=== PATIENT | female | born 1990 | race Caucasian/White ===

== ENCOUNTER 2022-12-19 11:48 | Outpatient (OUT) | payer OTHER, MEDICAID, SELFPAY ==
--- NOTE | 2022-12-19 12:10 | US_ITS ---
[place] [id number] Patient Name: DILMA KAUR MRN: [id number] date: 1990 Sex: F Assigned Patient Location: [facility] Current Patient Location: Accession/Order Number: [id number] Exam Date: 12/19/2022 13:00 Report Date: 12/19/2022 13:34 At the request of: CHEMA HOU Procedure: US OB BPP w non-stress EXAMINATION: US OB BPP w non-stress HISTORY: decreased movement umbilical abnormality COMPARISON: No relevant comparison available. TECHNIQUE: Ultrasound biophysical profile was performed in the radiology department. BREATHING MOVEMENTS: 2.0 GROSS BODY MOVEMENTS: 2.0 TONE: 2.0 QUALITATIVE AMNIOTIC FLUID VOLUME: 2.0 PRESENTATION: CEPHALIC HEART RATE: 145.9 bpm bpm. AMNIOTIC FLUID VOLUME: 23.9 cm (normal range 7.7-26.8 cm) GESTATIONAL AGE: 31 weeks 6 days CONCLUSION: Total biophysical profile score 8.0. Electronically authenticated by: EDDI SEALS Date: 12/19/2022 13:34
[2022-12-19 12:17] VITALS: TEMP 35.7
[2022-12-19 12:18] VITALS: BP 119/57; PULSE 79
== END 2022-12-19 13:25 | disposition home or self-care (01) ==
LOC: FBCO 11:59 → FBC 12:01
PROVIDERS: PCP Obstetrics & Gynecology; Visit Provider Obstetrics & Gynecology
DX: O26.893 Other specified pregnancy related conditions, third trimester (principal); Q89.9 Congenital malformation, unspecified; Z3A.31 31 weeks gestation of pregnancy
CPT/HCPCS: 59412; 76818

== ENCOUNTER 2022-12-22 09:21 | Outpatient (OUT) | payer OTHER, MEDICAID, SELFPAY ==
[2022-12-22 09:23] VITALS: BP 117/57; PULSE 74
== END 2022-12-22 10:10 | disposition home or self-care (01) ==
LOC: FBCO 09:21 → FBC 09:22
PROVIDERS: PCP Obstetrics & Gynecology; Visit Provider Obstetrics & Gynecology
DX: O26.899 Other specified pregnancy related conditions, unspecified trimester (principal)
CPT/HCPCS: 59025

== ENCOUNTER 2022-12-26 13:10 | Outpatient (OUT) | payer OTHER, MEDICAID, SELFPAY ==
[2022-12-26 13:18] VITALS: BP 106/64; PULSE 72
--- NOTE | 2022-12-26 13:29 | US_ITS ---
[address] [address] Patient Name: DILMA KAUR MRN: [id number] date: 1990 Sex: F Assigned Patient Location: [facility] Current Patient Location: Accession/Order Number: [id number] Exam Date: 12/26/2022 13:30 Report Date: 12/26/2022 15:24 At the request of: CHEMA HOU Procedure: US OB BPP w non-stress EXAMINATION: US OB BPP w non-stress HISTORY: Q89.9 Umbilical abnormality COMPARISON: Ultrasound biophysical profile 12/19/2022 TECHNIQUE: Ultrasound biophysical profile was performed in the radiology department. BREATHING MOVEMENTS: 2.0 GROSS BODY MOVEMENTS: 2.0 TONE: 2.0 QUALITATIVE AMNIOTIC FLUID VOLUME: 2.0 PRESENTATION: Cephalic HEART RATE: 135.0 bpm bpm. AMNIOTIC FLUID VOLUME: 16.6 cm GESTATIONAL AGE: 32 weeks 6 days CONCLUSION: Total biophysical profile score 8.0. Electronically authenticated by: EDDI SEALS Date: 12/26/2022 15:24
== END 2022-12-26 14:20 | disposition home or self-care (01) ==
LOC: FBCO 13:11 → FBC 13:11
PROVIDERS: PCP Obstetrics & Gynecology; Visit Provider Obstetrics & Gynecology
DX: O26.893 Other specified pregnancy related conditions, third trimester (principal); Q89.9 Congenital malformation, unspecified; Z3A.32 32 weeks gestation of pregnancy
CPT/HCPCS: 59025; 76818; 96372; J0702

== ENCOUNTER 2022-12-27 07:35 | Outpatient (OUT) | payer OTHER, MEDICAID, SELFPAY ==
[2022-12-27 13:55] VITALS: BP 121/76; PULSE 92; RESP 18; TEMP 36.2; O2SAT 98
--- NOTE | 2022-12-27 14:43 | PC.NURSE ---
1355: Pt. to [facility] amb. for second Celestone injection. Seated in recliner. VSS. Denies any adverse reaction from yesterdays injection. Pt. medicated with Celestone, 12mg im to left dorsal gluteal area. No bleeding to site. Pt. tolerated with minimal c/o pain. 1415: Pt. without s&s of adverse reaction. D/c'd amb. to home.
== END 2022-12-27 07:36 ==
LOC: INF 07:35
PROVIDERS: PCP Obstetrics & Gynecology; Visit Provider Obstetrics & Gynecology
DX: O26.879 Cervical shortening, unspecified trimester (principal)
CPT/HCPCS: 96372; J0702

== ENCOUNTER 2022-12-29 09:05 | Outpatient (OUT) | payer OTHER, MEDICAID, SELFPAY ==
[2022-12-29 09:13] VITALS: BP 116/70; PULSE 86
== END 2022-12-29 10:00 | disposition home or self-care (01) ==
LOC: FBCO 09:06 → FBC 09:06
PROVIDERS: PCP Obstetrics & Gynecology; Visit Provider Obstetrics & Gynecology
DX: O26.899 Other specified pregnancy related conditions, unspecified trimester (principal)
CPT/HCPCS: 59025

== ENCOUNTER 2023-01-02 14:54 | Outpatient (OUT) | payer OTHER, MEDICAID, SELFPAY ==
[2023-01-02 15:05] VITALS: BP 111/67; PULSE 96
--- NOTE | 2023-01-02 15:09 | US_ITS ---
[address] [address] Patient Name: DILMA KAUR MRN: [id number] date: 1990 Sex: F Assigned Patient Location: US Current Patient Location: US Accession/Order Number: [id number] Exam Date: 01/02/2023 15:45 Report Date: 01/02/2023 20:35 At the request of: CHEMA HOU Procedure: US OB BPP w non-stress EXAMINATION: US OB BPP w non-stress HISTORY: Umbilical abnormality Q89.9 COMPARISON: No relevant comparison available. TECHNIQUE: Ultrasound biophysical profile was performed in the radiology department. FINDINGS: BREATHING MOVEMENTS: 2.0 GROSS BODY MOVEMENTS: 2.0 TONE: 2.0 QUALITATIVE AMNIOTIC FLUID VOLUME: 2.0 PRESENTATION: Cephalic HEART RATE: 137.1 bpm H.B./min AMNIOTIC FLUID VOLUME: 18.8 cm cm GESTATIONAL AGE: 33 weeks 6 days CONCLUSION: Total biophysical profile score: 8.0 Electronically authenticated by: JORDAN KAUFFMAN Date: 01/02/2023 20:35
== END 2023-01-02 16:05 | disposition home or self-care (01) ==
LOC: US 14:54 → FBC 14:55
PROVIDERS: PCP Obstetrics & Gynecology; Visit Provider Obstetrics & Gynecology
DX: Q89.9 Congenital malformation, unspecified (principal)
CPT/HCPCS: 59025; 76818

== ENCOUNTER 2023-01-05 07:18 | Outpatient (OUT) | payer OTHER, MEDICAID, SELFPAY | END 2023-01-05 09:40 | disposition home or self-care (01) | LOC: FBCO 07:18 → FBC 09:13 | PROVIDERS: PCP Obstetrics & Gynecology; Visit Provider Obstetrics & Gynecology | DX: O26.899 Other specified pregnancy related conditions, unspecified trimester (principal) | CPT/HCPCS: 59025 ==

== ENCOUNTER 2023-01-08 15:29 | Outpatient (OUT) | payer OTHER, MEDICAID, SELFPAY ==
--- NOTE | 2023-01-08 15:30 | US_ITS ---
[address] [address] Patient Name: DILMA KAUR MRN: [id number] date: 1990 Sex: F Assigned Patient Location: [facility] Current Patient Location: Accession/Order Number: [id number] Exam Date: 01/08/2023 15:30 Report Date: 01/09/2023 04:18 At the request of: CHEMA HOU Procedure: US OB BPP w non-stress EXAMINATION: US OB BPP w non-stress HISTORY: Q89.9 UMBILICAL ABNORMALITY COMPARISON: Ultrasound biophysical profile 01/02/2023 TECHNIQUE: Ultrasound biophysical profile was performed in the radiology department. BREATHING MOVEMENTS: 2.0 GROSS BODY MOVEMENTS: 2.0 TONE: 2.0 QUALITATIVE AMNIOTIC FLUID VOLUME: 2.0 PRESENTATION: CEPHALIC HEART RATE: 149.2 bpm bpm. AMNIOTIC FLUID VOLUME: 12.2 cm GESTATIONAL AGE: 34 weeks 5 days CONCLUSION: Total biophysical profile score 8.0. Electronically authenticated by: EDDI SEALS Date: 01/09/2023 04:18
[2023-01-08 15:58] VITALS: BP 111/67; PULSE 74
== END 2023-01-08 17:15 | disposition home or self-care (01) ==
LOC: US 15:34 → FBC 15:35
PROVIDERS: PCP Obstetrics & Gynecology; Visit Provider Obstetrics & Gynecology
DX: O35.8XX0 Maternal care for other (suspected) fetal abnormality and damage, not applicable or unspecified (principal); Z3A.00 Weeks of gestation of pregnancy not specified
CPT/HCPCS: 59025; 76818

== ENCOUNTER 2023-01-12 09:06 | Outpatient (OUT) | payer OTHER, MEDICAID, SELFPAY | END 2023-01-12 10:00 | disposition home or self-care (01) | LOC: FBCO 09:07 → FBC 09:09 | PROVIDERS: Visit Provider Obstetrics & Gynecology | DX: O26.899 Other specified pregnancy related conditions, unspecified trimester (principal) | CPT/HCPCS: 59025 ==

== ENCOUNTER 2023-01-16 15:12 | Outpatient (OUT) | payer OTHER, MEDICAID, SELFPAY ==
--- NOTE | 2023-01-16 15:14 | US_ITS ---
[address] [address] Patient Name: DILMA KAUR MRN: [id number] date: 1990 Sex: F Assigned Patient Location: [facility] Current Patient Location: [facility] Accession/Order Number: [id number] Exam Date: 01/16/2023 15:15 Report Date: 01/16/2023 15:59 At the request of: ANTHONY THOMSON Procedure: US OB BPP w non-stress EXAMINATION: US OB BPP w non-stress HISTORY: Umbilical abnormality Q89.9 COMPARISON: No relevant comparison available. TECHNIQUE: Ultrasound biophysical profile was performed in the radiology department. BREATHING MOVEMENTS: 2.0 GROSS BODY MOVEMENTS: 2.0 TONE: 2.0 QUALITATIVE AMNIOTIC FLUID VOLUME: 2.0 PRESENTATION: Cephalic HEART RATE: 145.9 bpm bpm. AMNIOTIC FLUID VOLUME: 19.1 cm GESTATIONAL AGE: 35 weeks 6 days CONCLUSION: Total biophysical profile score 8.0. Electronically authenticated by: EDDI SEALS Date: 01/16/2023 15:59
[2023-01-16 15:35] VITALS: BP 120/69; PULSE 86
== END 2023-01-16 16:40 | disposition home or self-care (01) ==
LOC: US 15:14 → FBC 15:15
PROVIDERS: Visit Provider Midwife
DX: O26.893 Other specified pregnancy related conditions, third trimester (principal); Z3A.35 35 weeks gestation of pregnancy; Q89.9 Congenital malformation, unspecified
CPT/HCPCS: 76818

== ENCOUNTER 2023-01-17 20:14 | Outpatient (REF) | payer OTHER, MEDICAID, SELFPAY | END 2023-01-17 20:15 | disposition home or self-care (01) | LOC: LAB 20:14 | PROVIDERS: Visit Provider Obstetrics & Gynecology | DX: Z34.93 Encounter for supervision of normal pregnancy, unspecified, third trimester (principal) | CPT/HCPCS: 87081 ==

== ENCOUNTER 2023-01-19 09:00 | Outpatient (OUT) | payer OTHER, MEDICAID, SELFPAY ==
[2023-01-19 09:09] VITALS: BP 131/72; PULSE 70
== END 2023-01-19 09:42 | disposition home or self-care (01) ==
LOC: FBCO 09:02 → FBC 09:04
PROVIDERS: Visit Provider Obstetrics & Gynecology
DX: O36.8930 Maternal care for other specified fetal problems, third trimester, not applicable or unspecified (principal); Q89.9 Congenital malformation, unspecified; Z3A.00 Weeks of gestation of pregnancy not specified
CPT/HCPCS: 59025

== ENCOUNTER 2023-01-23 15:06 | Outpatient (OUT) | payer OTHER, MEDICAID, SELFPAY ==
--- NOTE | 2023-01-23 14:21 | US_ITS ---
[address] [address] Patient Name: DILMA DONAHUE MRN: [id number] date: 1990 Sex: F Assigned Patient Location: US Current Patient Location: US Accession/Order Number: [id number] Exam Date: 01/23/2023 14:55 Report Date: 01/23/2023 18:25 At the request of: CHEMA HOU Procedure: US OB BPP w non-stress EXAMINATION: US OB BPP w non-stress HISTORY: Umbilical abnormality Q89.9 COMPARISON: No relevant comparison available. TECHNIQUE: Ultrasound biophysical profile was performed in the radiology department. FINDINGS: BREATHING MOVEMENTS: 2 GROSS BODY MOVEMENTS: 2 TONE: 2 QUALITATIVE AMNIOTIC FLUID VOLUME: 2 PRESENTATION: CEPHALIC HEART RATE: 157.9 bpm H.B./min AMNIOTIC FLUID VOLUME: 17.1 cm cm GESTATIONAL AGE: 36 weeks 6 days CONCLUSION: Total biophysical profile score: 8 Electronically authenticated by: JORDAN KAUFFMAN Date: 01/23/2023 18:25
[2023-01-23 15:20] VITALS: BP 139/88; PULSE 68
== END 2023-01-23 16:06 | disposition home or self-care (01) ==
LOC: US 15:07 → FBC 15:09
PROVIDERS: Visit Provider Obstetrics & Gynecology
DX: O26.893 Other specified pregnancy related conditions, third trimester (principal); Z3A.36 36 weeks gestation of pregnancy; Q89.9 Congenital malformation, unspecified
CPT/HCPCS: 76818

== ENCOUNTER 2023-01-23 23:16 | Inpatient (IN) | payer OTHER, MEDICAID, SELFPAY ==
[2023-01-23 22:32] VITALS: BP 141/92; PULSE 79
--- NOTE | 2023-01-23 22:46 | PC.NURSE ---
2225-No fluid noted during cervical exam. Amnisure obtained and sent to lab.
[2023-01-23 22:59] LABS: Amnisure POSITIVE (NEGATIVE)
[2023-01-23 23:48] LABS: Hematocrit 33.9 % (36.0-48.0); Hemoglobin 11.2 g/dL (12.0-16.0); Mean Corpuscular Volume 81.7 fL (81.0-99.0); Platelet Count 323 10^3/uL (150-450); Red Blood Count 4.15 10^6/uL (4.20-5.40); Red Cell Distribution Width 14.8 % (11.0-15.0)
[2023-01-23 23:49] VITALS: BP 129/82; PULSE 76; RESP 18
[2023-01-23 23:49] LABS: Bilirubin Urine NEGATIVE (NEGATIVE); Blood Urine TRACE-I (NEGATIVE); Clarity Urine CLEAR (CLEAR); Color Urine YELLOW (YELLOW); Glucose Urine UA NEGATIVE (NEGATIVE); Ketones Urine NEGATIVE (NEGATIVE); Leukocyte Esterase Urine NEGATIVE (NEGATIVE); Nitrite Urine NEGATIVE (NEGATIVE); Protein Urine 30 mg/dL (NEG/TRACE); Specific Gravity Urine 1.025 (1.005-1.025); Urobilinogen Urine 0.2 EU/dL (0.2-1.0)
[2023-01-23 23:52] VITALS: TEMP 36.6
[2023-01-23 23:53] LABS: Urine Microscopic Indicated YES
--- NOTE | 2023-01-23 23:57 | PC.NURSE ---
2214- Report given to Dr. [place]. Orders received if patient ruptured admit patient with normal admission orders. Start PIT at 0600.
[2023-01-23 23:58] LABS: RBC Urine 0-2 #/HPF (0-2); WBC Urine 0-2 #/HPF (NONE SEEN)
[2023-01-23 23:59] LABS: Bacteria Urine TRACE #/HPF (NONE SEEN); Calcium Oxalate Crystals Urine MANY; Cast Seen? NONE SEEN #/LPF (NONE SEEN); Crystals Seen? Seen #/HPF (None Seen); Mucus Urine TRACE (NONE SEEN); Squamous Epithelial Cell Urine RARE #/LPF (NONE/RARE); Urine Culture Indicated NO
[2023-01-24] VITALS (71 sets, daily range): BP systolic 103–154; BP diastolic 55–84; PULSE 62–121; RESP 16–44; TEMP 36.2–36.7
[2023-01-24] MEDS: 0.9 % SODIUM CHLORIDE 1,000 ML 1000 ML IV ×2 (02:11→09:23)
[2023-01-24] MEDS: 0.9 % SODIUM CHLORIDE 1,000 ML 125 ML IV (02:27)
[2023-01-24] MEDS: ROPIVACAINE HCL/PF 400 MG/200 ML PREMIX EPIDURAL (05:26)
[2023-01-24 07:06] LABS: Amphetamine Screen Urine NEGATIVE (NEGATIVE); Barbiturates Screen Urine NEGATIVE (NEGATIVE); Benzodiazepines Screen Urine NEGATIVE (NEGATIVE); Buprenorphine Screen Urine NEGATIVE (NEGATIVE); Cannabinoid Screen Urine NEGATIVE (NEGATIVE); Cocaine Screen Urine NEGATIVE (NEGATIVE); Methadone Screen Urine NEGATIVE (NEGATIVE); Methamphetamines Screen Urine NEGATIVE (NEGATIVE); Opiate Screen Urine NEGATIVE (NEGATIVE); Oxycodone Screen Urine NEGATIVE (NEGATIVE); Phencyclidine Screen Urine NEGATIVE (NEGATIVE); Tricyclic Antidepressant Urine NEGATIVE (NEGATIVE)
[2023-01-24] MEDS: OXYTOCIN 10 UNIT in 0.9 % SODIUM CHLORIDE 500 ML 6.012 UNIT IV (10:29)
--- NOTE | 2023-01-24 16:07 | PM.OBPRCVD ---
Procedure Intrapartal events: None Delivery augmentation: pitocin Delivery monitor: external FHT and external uterine Route of delivery: Laceration description: periurethral - 1st degree Delivery repair: Vicryl Estimated blood loss (mL): 300 Anesthesia type: Epidural Disposition: floor Infant Delivery date: 01/24/23 Gender: female presentation: vertex Placental delivery description: Spontaneous cord description: 3 Vessels
--- NOTE | 2023-01-24 16:15 | PC.NURSE ---
1615 epidural catheter removed with tip intact.
[2023-01-24] MEDS: IBUPROFEN 600 MG TABLET PO (16:54)
--- NOTE | 2023-01-24 17:49 | PC.NURSE ---
eating meal. denies needs.
--- NOTE | 2023-01-24 19:19 | W.PC.ACHO ---
Registration Status: ADM IN Primary Language: Gibraltarian Preferred Language: Gibraltarian 1909 care relinquished to annette lou Active Medications Generic Name Dose Route Start Last Admin Trade Name Freq PRN Reason Stop Dose Admin Acetaminophen 650 mg 01/24/23 16:06 Acetaminophen 325 Mg Tablet PO Q6H PRN Mild Pain Al Hydroxide/Mg Hydroxide 2,400 mg 01/24/23 16:06 Magnesium Hydroxide 2,400 Mg/10 Ml Oral.Susp PO Q6H PRN Dyspepsia Benzocaine/Menthol 1 applic 01/24/23 16:06 01/24/23 16:57 Benzocaine/Menthol 85 Gram Bottle TOPICAL 1 applic ONCE PRN Administration Pain Carboprost Tromethamine 250 mcg 01/23/23 23:16 Carboprost Tromethamine 250 Mcg/Ml 1 Ml Vial IM Q15M PRN Bleeding Docusate Sodium 100 mg 01/25/23 09:00 Docusate Sodium 100 Mg Capsule PO BID JERRELL Sodium Chloride 1,000 mls @ 125 mls/hr 01/23/23 23:30 01/24/23 02:27 Sodium Chloride 0.9% 1,000 Ml IV 125 mls/hr .Q8H JERRELL Administration Ropivacaine/Sodium Chloride 400 mg in 200 mls @ 6 mls/hr 01/24/23 04:30 Naropin 0.2% 400 Mg/200 Ml Bag EPIDURAL Q24H [facility] Oxytocin 10 unit/ Sodium 501 mls @ 6.012 mls/hr 01/24/23 04:45 01/24/23 12:45 Chloride IV 8 milliunit/min Q24H JERRELL 24.048 mls/hr Infusion Protocol 2 MILLIUNIT/MIN Oxytocin 10 unit/ Sodium 501 mls @ 6.012 mls/hr 01/24/23 10:30 Chloride IV Q24H [facility] Protocol 2 MILLIUNIT/MIN Ibuprofen 600 mg 01/24/23 16:06 01/24/23 16:54 Ibuprofen 600 Mg Tablet PO 600 mg Q6H PRN Administration Moderate Pain Lidocaine 5 ml 01/23/23 23:16 Lidocaine Viscous 2% 15 Ml Topical Solution TOPICAL DIRECTED PRN Pain Lidocaine 1 ml 01/23/23 23:16 Lidocaine Hcl 1% 200 Mg/20 Ml Mdv INJ DIRECTED PRN Pain Methylergonovine Maleate 0.2 mg 01/23/23 23:16 Methylergonovine Maleate 0.2 Mg/Ml Ampule IM ONCE PRN Uterine Contractility/Contract Methylergonovine Maleate 0.2 mg 01/23/23 23:16 Methylergonovine Maleate 0.2 Mg Tablet PO Q4H PRN Uterine Contractility/Contract Misoprostol 600 mcg 01/23/23 23:16 Misoprostol 100 Mcg Tablet PO ONCE PRN Uterine Bleeding Misoprostol 800 mcg 01/23/23 23:16 Misoprostol 100 Mcg Tablet SL ONCE PRN Uterine Bleeding Misoprostol 1,000 mcg 01/23/23 23:16 Misoprostol 100 Mcg Tablet WI ONCE PRN Uterine Bleeding Nalbuphine HCl 10 mg 01/23/23 23:16 Nalbuphine Hcl 10 Mg/Ml Ampule IV Q3H PRN Pain Ondansetron HCl 4 mg 01/23/23 23:16 Ondansetron Pf 4 Mg/2 Ml Vial IV Q6H PRN Nausea And Vomiting Ondansetron HCl 4 mg 01/23/23 23:16 Ondansetron 4 Mg Rapdis Tablet SL Q6H PRN Nausea And Vomiting Oxytocin 10 unit 01/23/23 23:16 Oxytocin 100 Unit/10 Ml Vial IM ONCE PRN Uterine Bleeding Senna 17.2 mg 01/24/23 20:00 Sennosides 8.6 Mg Tablet PO QHS PRN Constipation Simethicone 80 mg 01/24/23 16:06 Simethicone 80 Mg Tab.Chew PO QID PRN Abdominal Distention Temazepam 15 mg 01/24/23 20:00 Temazepam 15 Mg Capsule PO BEDTIME PRN Sleep Witch Sophie/Glycerin 1 each 01/24/23 16:06 Glycerin/Witch Sophie 1 Each Jar TOPICAL ONCE PRN Pain Diet Category Date Time Status Regular Consistency Diet Diet 01/24/23 Dinner Active Neurology Patient orientation (short person,place,time,situation list) Leila coma scale total score 15 Respiratory Oxygen Delivery Method Room Air Bowels Bowel Pattern No Bowel Movement Renal Bladder Pattern Continent
--- NOTE | 2023-01-24 21:28 | PC.NURSE ---
2044-Patient up to bathroom and linens changed. Sarah care performed and dermaplast applied. Patient denies any further needs at this time.
[2023-01-25 05:51] LABS: Basophils Absolute Auto 0.1 10^3/uL (0.0-0.1); Basophils Percent Auto 0.3 % (0.2-2.0); Eosinophils Absolute Auto 0.1 10^3/uL (0.0-0.7); Eosinophils Percent Auto 0.8 % (0.9-7.0); Hematocrit 25.9 % (36.0-48.0); Hemoglobin 8.1 g/dL (12.0-16.0); Immature Granulocytes Abs Auto 0.15 10^3/uL (0.00-0.03); Immature Granulocytes Pct Auto 0.8 % (0.0-0.5); Lymphocytes Absolute Auto 2.7 10^3/uL (1.2-3.8); Lymphocytes Percent Auto 14.4 % (20.5-60.0); Mean Corpuscular HGB Conc 31.3 g/dL (29.9-35.2); Mean Corpuscular Volume 86.3 fL (81.0-99.0); Mean Platelet Volume 11.5 fL (9.5-13.5); Monocytes Absolute Auto 1.1 10^3/uL (0.3-0.8); Monocytes Percent Auto 5.9 % (1.7-12.0); Neutrophils Absolute Auto 14.5 10^3/uL (1.4-6.5); Neutrophils Percent Auto 77.8 % (43.0-75.0); Platelet Count 218 10^3/uL (150-450); Red Cell Distribution Width 15.2 % (11.0-15.0); White Blood Count 18.6 10^3/uL (4.0-11.0)
[2023-01-25] MEDS: IBUPROFEN 600 MG TABLET PO ×3 (07:24→22:42)
[2023-01-25 07:25] VITALS: BP 125/61; PULSE 84; RESP 16
--- NOTE | 2023-01-25 07:25 | PC.NURSE ---
Report given to Paul Amaral RN.
--- NOTE | 2023-01-25 08:00 | P.OBPN_ITS ---
OB - PN: Subj Subjective Patient comments: no complaints and pain well controlled [place] status: doing well Exam Narrative Exam Narrative: s/p 1 day Constitutional Vital Signs, click to edit/add: Last Vital Signs Temp 97.9 F 01/24/23 23:10 Pulse 84 01/25/23 07:25 Resp 44 H 01/24/23 23:10 BP 125/61 H 01/25/23 07:25 O2 Del Method Room Air 01/24/23 23:10 Documenting provider has reviewed patient's vital signs: yes Common normals: no apparent distress Orientation/consciousness: Yes awake, Yes oriented to person, Yes oriented to place and Yes oriented to time HENMT Common normals: normocephalic Eye Common normals: PERRL Cardio Common normals: regular rate and regular rhythm GI Auscultation: normoactive bowel sounds Palpation: soft Common normals: no CVA tenderness Back & Pelvis Common normals: no CVA tenderness Extremity Common normals: normal to inspection and full ROM Neuro Common normals: oriented x3 Results Labs Labs: Short CBC 01/25/23 Range/Units 05:30 WBC 18.6 H (4.0-11.0) 10^3/uL Hgb 8.1 L (12.0-16.0) g/dL Hct 25.9 L (36.0-48.0) % Plt Count 218 (150-450) 10^3/uL OB - PN: A/P Plan - Vaginal Delivery day: 1 Plan: routine care Time Spent with Patient Time: Total time spent is greater than 50% in coordination of care (as documented) at patient's floor/unit and/or counseling patient: Total time spent with greater than 50% in coordination of care (as documented) at patient's floor/unit and/or counseling patient: less than 15 minutes
[2023-01-25] MEDS: FERROUS SULFATE 325 MG TABLET PO ×2 (09:05→22:42)
[2023-01-25] MEDS: DOCUSATE SODIUM 100 MG CAPSULE PO ×2 (09:05→22:42)
[2023-01-25 12:50] VITALS: RESP 16
[2023-01-25 16:15] VITALS: RESP 16
[2023-01-25 17:32] VITALS: BP 123/57; PULSE 82
--- NOTE | 2023-01-25 19:26 | W.PC.ACHO ---
Registration Status: ADM IN Primary Language: Citizen Of [place] Preferred Language: Citizen [place] Report given to Jay Bryson RN. Care relinquished. Active Medications Generic Name Dose Route Start Last Admin Trade Name Maxq PRN Reason Stop Dose Admin Acetaminophen 650 mg 01/24/23 16:06 Acetaminophen 325 Mg Tablet PO Q6H PRN Mild Pain Al Hydroxide/Mg Hydroxide 2,400 mg 01/24/23 16:06 Magnesium Hydroxide 2,400 Mg/10 Ml Oral.Susp PO Q6H PRN Dyspepsia Benzocaine/Menthol 1 applic 01/24/23 16:06 01/24/23 16:57 Benzocaine/Menthol 85 Gram Bottle TOPICAL 1 applic ONCE PRN Administration Pain Docusate Sodium 100 mg 01/25/23 09:00 01/25/23 09:05 Docusate Sodium 100 Mg Capsule PO 100 mg BID JERRELL Administration Ferrous Sulfate 325 mg 01/25/23 09:00 01/25/23 09:05 Ferrous Sulfate 325 Mg Tablet PO 325 mg BID JERRELL Administration Sodium Chloride 1,000 mls @ 125 mls/hr 01/23/23 23:30 01/24/23 02:27 Sodium Chloride 0.9% 1,000 Ml IV 125 mls/hr .Q8H JERRELL Administration Ibuprofen 600 mg 01/24/23 16:06 01/25/23 16:09 Ibuprofen 600 Mg Tablet PO 600 mg Q6H PRN Administration Moderate Pain Ondansetron HCl 4 mg 01/23/23 23:16 Ondansetron Pf 4 Mg/2 Ml Vial IV Q6H PRN Nausea And Vomiting Ondansetron HCl 4 mg 01/23/23 23:16 Ondansetron 4 Mg Rapdis Tablet SL Q6H PRN Nausea And Vomiting Senna 17.2 mg 01/24/23 20:00 Sennosides 8.6 Mg Tablet PO QHS PRN Constipation Simethicone 80 mg 01/24/23 16:06 Simethicone 80 Mg Tab.Chew PO QID PRN Abdominal Distention Temazepam 15 mg 01/24/23 20:00 Temazepam 15 Mg Capsule PO BEDTIME PRN Sleep Witch Sophie/Glycerin 1 each 01/24/23 16:06 Glycerin/Witch Sophie 1 Each Jar TOPICAL ONCE PRN Pain Respiratory Oxygen Delivery Method Room Air Oxygen Delivery Method Room Air Oxygen Delivery Method Room Air Oxygen Delivery Method Room Air Oxygen Delivery Method Room Air Bowels Bowel Pattern No Bowel Movement Bowel Pattern No Bowel Movement Bowel Pattern No Bowel Movement Bowel Pattern No Bowel Movement Renal Bladder Pattern Continent Bladder Pattern Continent Bladder Pattern Continent Bladder Pattern Continent
[2023-01-26 01:15] VITALS: TEMP 36.9
[2023-01-26 01:23] VITALS: BP 116/59; PULSE 78
--- NOTE | 2023-01-26 07:57 | W.PC.ACHO ---
Registration Status: ADM IN Primary Language: Nepalese Preferred Language: Nepalese Active Medications Generic Name Dose Route Start Last Admin Trade Name Freq PRN Reason Stop Dose Admin Acetaminophen 650 mg 01/24/23 16:06 Acetaminophen 325 Mg Tablet PO Q6H PRN Mild Pain Al Hydroxide/Mg Hydroxide 2,400 mg 01/24/23 16:06 Magnesium Hydroxide 2,400 Mg/10 Ml Oral.Susp PO Q6H PRN Dyspepsia Benzocaine/Menthol 1 applic 01/24/23 16:06 01/24/23 16:57 Benzocaine/Menthol 85 Gram Bottle TOPICAL 1 applic ONCE PRN Administration Pain Docusate Sodium 100 mg 01/25/23 09:00 01/25/23 22:42 Docusate Sodium 100 Mg Capsule PO 100 mg BID JERRELL Administration Ferrous Sulfate 325 mg 01/25/23 09:00 01/25/23 22:42 Ferrous Sulfate 325 Mg Tablet PO 325 mg BID JERRELL Administration Sodium Chloride 1,000 mls @ 125 mls/hr 01/23/23 23:30 01/24/23 02:27 Sodium Chloride 0.9% 1,000 Ml IV 125 mls/hr .Q8H JERRELL Administration Ibuprofen 600 mg 01/24/23 16:06 01/25/23 22:42 Ibuprofen 600 Mg Tablet PO 600 mg Q6H PRN Administration Moderate Pain Ondansetron HCl 4 mg 01/23/23 23:16 Ondansetron Pf 4 Mg/2 Ml Vial IV Q6H PRN Nausea And Vomiting Ondansetron HCl 4 mg 01/23/23 23:16 Ondansetron 4 Mg Rapdis Tablet SL Q6H PRN Nausea And Vomiting Senna 17.2 mg 01/24/23 20:00 Sennosides 8.6 Mg Tablet PO QHS PRN Constipation Simethicone 80 mg 01/24/23 16:06 Simethicone 80 Mg Tab.Chew PO QID PRN Abdominal Distention Temazepam 15 mg 01/24/23 20:00 Temazepam 15 Mg Capsule PO BEDTIME PRN Sleep Witch Sophie/Glycerin 1 each 01/24/23 16:06 Glycerin/Witch Sophie 1 Each Jar TOPICAL ONCE PRN Pain Neurology Leila coma scale total score 15 Respiratory Oxygen Delivery Method Room Air Oxygen Delivery Method Room Air Bowels Bowel Pattern No Bowel Movement Bowel Pattern No Bowel Movement Renal Bladder Pattern Continent Bladder Pattern Continent
[2023-01-26] MEDS: DOCUSATE SODIUM 100 MG CAPSULE PO (08:03)
[2023-01-26] MEDS: IBUPROFEN 600 MG TABLET PO ×2 (08:03→14:58)
[2023-01-26] MEDS: FERROUS SULFATE 325 MG TABLET PO (08:03)
[2023-01-26 08:35] VITALS: BP 121/59; PULSE 81
[2023-01-26 08:45] VITALS: BP 121/59; PULSE 81; RESP 13; TEMP 37.1
--- NOTE | 2023-01-26 10:59 | P.OBPN_ITS ---
OB - PN: Subj Subjective Patient comments: no complaints [place] status: doing well Exam Constitutional Vital Signs, click to edit/add: Last Vital Signs Temp 98.7 F 01/26/23 08:45 Pulse 81 01/26/23 08:45 Resp 13 01/26/23 08:45 BP 121/59 H 01/26/23 08:45 O2 Del Method Room Air 01/25/23 16:15 Documenting provider has reviewed patient's vital signs: yes Common normals: no apparent distress Respiratory Common normals: clear to auscultation bilaterally Cardio Common normals: regular rate and regular rhythm GI Common normals: Normal to inspection, nondistended, normoactive bowel sounds present Extremity Common normals: no clubbing, cyanosis or edema and no calf tenderness OB - PN: A/P Plan - Vaginal Delivery day: 2 Plan: routine care, discharge home and follow up 6 weeks Time Spent with Patient Time: Total time spent is greater than 50% in coordination of care (as documented) at patient's floor/unit and/or counseling patient: Total time spent with greater than 50% in coordination of care (as documented) at patient's floor/unit and/or counseling patient: less than 15 minutes
== END 2023-01-26 15:37 | disposition home or self-care (01) | DRG 807 ==
PROVIDERS: Admitting Provider Obstetrics & Gynecology; Visit Provider Obstetrics & Gynecology
DX: O99.52 Diseases of the respiratory system complicating childbirth (principal); Z37.0 Single live birth; O99.214 Obesity complicating childbirth; O70.0 First degree perineal laceration during delivery; Z3A.37 37 weeks gestation of pregnancy; J45.909 Unspecified asthma, uncomplicated; Z90.49 Acquired absence of other specified parts of digestive tract; O24.92 Unspecified diabetes mellitus in childbirth; E11.9 Type 2 diabetes mellitus without complications
CPT/HCPCS: 36415; 59025; 76818; 80307; 81003; 81015; 84112; 85025; 85027; 86850; 86900; 86901; 88307; 96374

== ENCOUNTER 2023-01-29 08:25 | Outpatient (RCR) | payer OTHER, MEDICAID, SELFPAY ==
[2023-01-29 11:40] VITALS: BP 138/84; PULSE 81; RESP 18; TEMP 36.9; O2SAT 97
--- NOTE | 2023-01-29 11:51 | PC.NURSE ---
Maged arrive for follow up appointment. Mom states is doing well. Voices no complaints at this time. States feels well and has chosen to pump and feed only. No longer desires to direct breastfeed . Reviewed pumping schedule and is very aware of needs to pump frequently to increase supply. Is pumping 20-40 ml every 2-3 hours on day 5. Is also supplementing with 15-30 ml of formula as well. No questions voiced and verbalized understanding.
== END 2023-01-29 12:30 | disposition home or self-care (01) ==
LOC: FBCO 08:25
PROVIDERS: Visit Provider Obstetrics & Gynecology
DX: Z39.2 Encounter for routine postpartum follow-up (principal)

== ENCOUNTER 2023-05-23 12:48 | Outpatient (OUT) | payer OTHER, MEDICAID, SELFPAY ==
[2023-05-23 13:09] LABS: Hemoglobin 10.7 g/dL (12.0-16.0)
--- NOTE | 2023-05-23 13:59 | RT_ITS ---
[facility] Test Date: 2023-05-23 Pat Name: DILMA DONAHUE Department: Room: - Gender: Female Stable Cleaner: Ilir Rivera RRT : 1990 Requested By: Paras Knapp Order Number: [id number] Reading MD: Paras Knapp Interpretive Statements Pulmonary function testing was completed according to ATS criteria. Findings were considered accurate and reproducible. Both pre- and post-bronchodilator values utilized for spirometry. Due to software limitations, no prior studies (if performed previously) are currently available for comparison. Spirometry (based on pre-bronchodilator values): -FEV1/FVC: Normal @ 81% -FEV1: Normal @ 99% -FVC: Normal @ 103% -There is no significant bronchodilator response. Lung volumes by plethysmography (based on pre-bronchodilator values): -RV: Reduced @ 65% -TLC: Normal @ 95% Diffusion capacity: -DLCO: Normal @ 93% when corrected for Hb 10.7g/dL Flow-volume loop: -Normal shape Impressions: -Normal PFT. Clinical correlation required. Electronically Signed On 05-23-2023 15:06:48 EST by Paras Knapp
[2023-05-23] MEDS: ALBUTEROL SULFATE 2.5 MG/3 ML VIAL NEB IH (14:03)
== END 2023-05-23 12:49 | disposition home or self-care (01) ==
LOC: CARD 12:49
PROVIDERS: Visit Provider Internal Medicine
DX: J45.30 Mild persistent asthma, uncomplicated (principal)
CPT/HCPCS: 36415; 85018; 94060; 94726; 94729

== ENCOUNTER 2023-09-26 21:24 | Outpatient (REF) | payer MEDICAID, SELFPAY ==
--- OUTSIDE RECORDS SUMMARY | 2023-09-26 21:28 | XMS_ITS | CCD ---
Author Organization [facility] Care Team Providers Care Senior Warehouse Clerk Name Role Phone Sapp, Kenia F Unavailable Unavailable Sapp, Kenia F Unavailable Unavailable GRICELDA IBARRA~[phone] UNKNOWN Unavailable Unavailable Good PACK, Kasey Gaona Primary Care Provider [phone] DR GRICELDA IBARRA Primary Care Unavailable SAVI ., DR BEAR Attending Unavailable SAVI ., DR BEAR Admitting Unavailable SAVI ., DR BEAR Consulting Unavailable KARASIK ., DR OSBORNE Admitting Unavailabl e SAVI ., DR BEAR Consulting Unavailable REQUEST, DR NONE LISTED Primary Care Unavaila ble KARASIK ., DR OSBORNE Attending Unavailabl e SAVI ., DR BEAR Consulting Unavailable SAVI ., DR BEAR Attending Unavailable SAVI ., DR BEAR Admitting Unavailable REQUEST, NONE LISTED Primary Care Unavaila ble SAVI ., DR BEAR Consulting Unavailable SAVI ., DR BEAR Attending Unavailable SAVI ., DR BEAR Admitting Unavailable REQUEST, DR NONE LISTED Primary Care Unavaila ble SHAJIER, DR EDDI Fong Consulting Unavailable SAVI ., DR BEAR Admitting Unavailable SAVI ., DR BEAR Attending Unavailable REQUEST, NONE LISTED Primary Care Unavaila ble ASHLYN ., ROBERT Attending Unavailable ASHLYN ., ROBERT Admitting Unavailable ASHLYN ., ROBERT Consulting Unavailable REQUEST, NONE LISTED Primary Care Unavaila ble JORDAN ALVES Consulting Unavailable ALENA ELY Consulting Unavailable SAVI ., DR BEAR Consulting Unavailable SAVI ., DR BEAR Attending Unavailable REQUEST, DR NONE LISTED Primary Care Unavaila ble SAVI ., DR BEAR Admitting Unavailable SAVI ., DR BEAR Consulting Unavailable SAVI ., DR BEAR Attending Unavailable SAVI ., DR BEAR Admitting Unavailable REQUEST, DR NONE LISTED Primary Care Unavaila ble SAVI ., DR BEAR Admitting Unavailable SAVI ., DR BEAR Consulting Unavailable SAVI ., DR BEAR Attending Unavailable REQUEST, NONE LISTED Primary Care Unavaila ble SAVI ., DR BEAR Consulting Unavailable SAVI ., DR BEAR Attending Unavailable SAVI ., DR BEAR Admitting Unavailable REQUEST, DR NONE LISTED Primary Care Unavaila ble KEVIN ., MARGIE Consulting Unavailable REQUEST, NONE LISTED Primary Care Unavaila ble KEVIN ., MARGIE Attending Unavailable KEVIN ., MARGIE Admitting Unavailable SAVI ., DR BEAR Admitting Unavailable SAVI ., DR BEAR Consulting Unavailable SAVI ., DR BEAR Attending Unavailable SAVI ., DR BEAR Admitting Unavailable SAVI ., DR BEAR Consulting Unavailable SAVI ., DR BEAR Attending Unavailable REQUEST, NONE LISTED Primary Care Unavaila ble MISC, DR NINO Attending Unavailable MISC, DR NINO Admitting Unavailable REQUEST, NONE LISTED Primary Care Unavaila ble MISC, DR NINO Consulting Unavailable SAVI ., DR BEAR Consulting Unavailable KEVIN ., MARGIE Admitting Unavailable NADERER, DR GRICELDA Head Primary Care Unavailable KEVIN ., MARGIE Consulting Unavailable KEVIN ., MARGIE Attending Unavailable NADERER, DR GRICEDLA Head Consulting Unavailable NADERER, DR GRICELDA Head Attending Unavailable NADERER, DR GRICELDA Head Admitting Unavailable NADERER, DR GRICELDA Head Primary Care Unavailable HYSONKASEY Primary Care Unavailable PERREJI, IKER C Referring Unavailable HYKASEY WINCHESTER Primary Care Unavailable PERREJI IKER C Referring Unavailable Medications Current Medications Medication Drug Class(es) Dates Sig (Normalized) Sig (Original) albuterol 0.83 mg/ml inhalation solution (3 sources) beta2-Adrenergic Agonist Start: 09-18-2022 albuterol (PROVENTIL) (2.5 MG/3ML) 0.083% nebulizer solution inhale contents of 1 vial ( 3 milliliters ) in nebulizer by mouth... (REFER TO PRESCRIPTION NOTES). 0 09/18/2022 Active Start: 07-31-2022 take 2 puff(s) by [facility] every four hours albuterol sulfate HFA (PROVENTIL;VENTOLIN;PROAIR) 108 (90 Base) MCG/ACT inhaler inhale 2 puffs by mouth and INTO THE LUNGS every 4 hours if needed 0 07/31/2022 Active Aspirin (1 source) Platelet Aggregation Inhibitor, Nonsteroidal Anti-inflammatory Drug BABY ASPIRIN PO Take by mouth 0 Active 60 actuat fluticasone propionate 0.25 mg/actuat / salmeterol 0.05 mg/actuat dry powder inhaler (2 sources) Corticosteroid, beta2-Adrenergic Agonist Start: 08-21-19 take 1 puff(s) by mouth twice daily ADVAIR DISKUS 250-50 MCG/ACT AEPB diskus inhaler inhale 1 puff by mouth and INTO THE LUNGS twice a day 0 08/21/2022 Active ondansetron 4 mg oral tablet (2 sources) Serotonin-3 Receptor Antagonist Start: 08-26-19 take 1 tablet by mouth every four to six hours ondansetron (ZOFRAN) 4 MG tablet take 1 tablet by mouth every 4 to 6 hours if needed 0 08/26/2022 Active IO-Ree-[facility]-3 ( GUMMIES/DHA & FA) 0.4-32.5 MG CHEW (2 sources) YK-Jfz-IM[facility] ( GUMMIES/DHA & FA) 0.4-32.5 MG CHEW Gummies/DHA & FA 0 Active Progesterone (2 sources) Progesterone Progesterone [address] 200 mg vaginally 2 times daily 0 Active sertraline 50 mg oral tablet (2 sources) Serotonin Reuptake Inhibitor take 1 tablet by mouth once daily sertraline (ZOLOFT) 50 MG tablet Take 50 mg by mouth daily 0 Active Problems Active Problems Problem Classification Problem Date Documented Date Episodic/Chronic Abdominal pain (1 source) Pelvic and perineal pain; Translations: [PELVIC AND PERINEAL PAIN] Onset: 10-26-2022 Episodic Asthma (1 source) Unspecified asthma with (acute) exacerbation; Translations: [UNS ASTHMA W/ACUTE EXACERBATION] Onset: 09-19-2022 Chronic Diabetes mellitus without complication (8 sources) Other abnormal glucose; Translations: [Impaired glucose tolerance (oral)] Onset: 11-01-2022 Episodic Female infertility (4 sources) Female infertility, unspecified; Translations: [FEMALE INFERTILITY UNSPECIFIED] Onset: 04-04-2022 Chronic Immunizations and screening for infectious disease (2 sources) Encounter for screening for human papillomavirus (HPV); Translations: [Contact with and (suspected) exposure to infections with a predominantly sexual mode of transmission] Onset: 09-25-2022 Episodic Menstrual disorders (5 sources) Irregular menstruation, unspecified; Translations: [IRREGULAR MENSTRUATION UNSPECIFIED] Onset: 06-13-2022 Chronic Nonspecific chest pain (3 sources) Chest pain, unspecified; Translations: [CHEST PAIN UNSPECIFIED] Onset: 09-17-2022 Episodic Other aftercare (1 source) 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; Translations: [LAB AIDE CURRENT USE OF ASPIRIN] Onset: 09-19-2022 Episodic Other aftercare (1 source) Other transport manager (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; Translations: [OTH SHELTER CURRENT DRUG THERAPY] Onset: 09-19-2022 Episodic Other complications of (4 sources) Other specified related conditions, second trimester; Translations: [OTH SPEC PREG RELATED COND 2ND TRI] Onset: 10-23-2022 Episodic Other complications of (1 source) Diseases of the respiratory system complicating , second trimester; Translations: [DISEASES RESP SYS COMP PREG 2ND TRI] Onset: 09-19-2022 Episodic Other female genital disorders (1 source) Other specified noninflammatory disorders of vagina; Translations: [OTH SPEC NONINFLAMMATORY D/O VAGINA] Onset: 09-25-2022 Episodic Other screening for suspected conditions (not mental disorders or infectious disease) (4 sources) Encounter for screening for malignant neoplasm of cervix; Translations: [ENC SCREENING MALIG NEOPLASM CERV] Onset: 09-19-2022 Episodic Other upper respiratory infections (1 source) Acute upper respiratory infection, unspecified; Translations: [ACUTE UP RESPIRATORY INFECTION UNS] Onset: 09-19-2022 Episodic Residual codes; unclassified (1 source) 22 weeks gestation of ; Translations: [22 WEEKS GESTATION OF ] Onset: 10-29-2022 Episodic Residual codes; unclassified (1 source) 23 weeks gestation of ; Translations: [23 WEEKS GESTATION OF ] Onset: 10-26-2022 Episodic Residual codes; unclassified (1 source) 19 weeks gestation of ; Translations: [19 WEEKS GESTATION OF ] Onset: 09-19-2022 Episodic Residual codes; unclassified (1 source) Family history of other specified conditions; Translations: [FAMILY HX OTHER SPEC CONDITIONS] Onset: 09-12-2022 Episodic Unclassified (1 source) CONTACT W/AND (SUSP) EXPOS COVID-19; Translations: [CONTACT W/AND (SUSP) EXPOS COVID-19] Onset: 09-19-2022 Past or Other Problems Problem Classification Problem Date Documented Da te Episodic/Chronic Other complications of (2 sources) Supervision of other high risk pregnancies, second trimester; Translations: [Supervision of other high risk pregnancies, second trimester] Onset: 10-11-2022 Episodic Other and delivery including normal (14 sources) Encounter for supervision of normal , unspecified, second trimester; Translations: [Encounter for supervision of normal first , second trimester] Onset: 07-31-2022 Episodic Residual codes; unclassified (2 sources) Contact with and (suspected) exposure to lead; Translations: [Contact with and (suspected) exposure to lead] Onset: 10-11-2022 Episodic Results Test Name Value Interpretation Reference Range Facility GLYCOHEMOGLOBIN A1Con 2022 ADA RECOMMENDATION SEE BELOW Normal [facility] Comment on above: Result Comment: ADA RECOMMENDED LIMIT 4.0 - 6.0 ADA THERAPEUTIC TARGET < 7.0 ACTION SUGGESTED > 7.0 Performed By: #### A 1C #### [facility] [address] [place] [address] Dr. Kavon Cardenas Glucose [Mass/Vol] 103 mg/dL Normal [facility] Comment on above: Performed By: #### A 1C #### [facility] [address] [address] [address] Kavon Cardenas HbA1c (Bld) [Mass fraction] 5.2 % Normal 4.5-6.2 [facility] Comment on above: Performed By: #### A 1C #### [facility] [address] [address] [address] Kavon Cardenas GTT 3 HR PREGon 11-01-2022 Glucose [Mass/Vol] 94 mg/dL Normal 74-106 [facility] Comment on above: Performed By: #### C ARDIGM #### [facility] [address] [address] [address] Kavon Cardenas CBC AUTO DIFFon 10-25-2022 BASO # 0.1 103/ul Normal 0.0-0.1 [facility] Comment on above: Performed By: #### C BC #### [facility] [address] [address] [address] Kavon Cardenas Basophils/100 WBC (Bld) 0.3 % Normal 0.2-2.0 [facility] Comment on above: Performed By: #### C BC #### [facility] [address] [address] [address] Kavon Cardenas EO # 0.2 103/ul Normal 0.0-0.7 [facility] Comment on above: Performed By: #### C BC #### [facility] [address] [address] [address] Kavon Cardenas Eosinophils/100 WBC (Bld) 1.3 % Normal 0.9-7.0 [facility] Comment on above: Performed By: #### C BC #### [facility] [address] [place] [address] Dr. Kavon Cardenas Erythrocyte distribution width (RBC) [Ratio] 14.5 % Normal 11.0-15.0 [facility] Comment on above: Performed By: #### C BC #### [facility] [address] [place] [address] Dr. Kavon Cardenas Hematocrit (Bld) [Volume fraction] 35.4 % Critically low 36.0-48.0 [facility] Comment on above: Performed By: #### C BC #### [facility] [address] [address] [address] Kavon Cardenas Hemoglobin (Bld) [Mass/Vol] 11.4 g/dL Critically low 12.0-16.0 [facility] Comment on above: Performed By: #### C BC #### [facility] [address] [address] [address] Kavon Cardenas IG # 0.19 10e3/ul Critically high 0.00-0.03 [facility] Comment on above: Performed By: #### C BC #### [facility] [address] [address] [address] Kavon Cardenas IG % 1.1 % Critically high 0.0-0.5 [facility] Comment on above: Performed By: #### C BC #### [facility] [address] [place] [address] Dr. Kavon Cardenas LYMPH # 3.1 103/ul Normal 1.2-3.8 [facility] Comment on above: Performed By: #### C BC #### [facility] [address] [place] [address] Dr. Kavon Cardenas Lymphocytes/100 WBC (Bld) 17.8 % Critically low 20.5-60.0 [facility] Comment on above: Performed By: #### C BC #### [facility] [address] [place] [address] Dr. Kavon Cardenas MANUAL DIFF REQ NO Normal [facility] Comment on above: Performed By: #### C BC #### [facility] [address] [place] [address] Dr. Kavon Cardenas MCH (RBC) [Entitic mass] 28.6 pg Normal 26.7-34.0 [facility] Comment on above: Performed By: #### C BC #### [facility] [address] [place] [address] Dr. Kavon Cardenas MCHC (RBC) [Mass/Vol] 32.2 g/dL Normal 29.9-35.2 [facility] Comment on above: Performed By: #### C BC #### [facility] [address] [place] [address] Dr. Kavon Cardenas MCV (RBC) [Entitic vol] 88.7 fL Normal 81.0-99.0 [facility] Comment on above: Performed By: #### C BC #### [facility] [address] [place] [address] Dr. Kavon Cardenas MONO # 0.6 103/ul Normal 0.3-0.8 [facility] Comment on above: Performed By: #### C BC #### [facility] [address] [place] [address] Dr. Kavon Cardenas Monocytes/100 WBC (Bld) 3.6 % Normal 1.7-12.0 [facility] Comment on above: Performed By: #### C BC #### [facility] [address] [address] [address] Kavon Cardenas NEUT # 13.0 103/ul Critically high 1.4-6.5 [facility] Comment on above: Performed By: #### C BC #### [facility] [address] [address] [address] Kavon Cardenas Neutrophils/100 WBC (Bld) 75.9 % Critically high 43.0-75.0 [facility] Comment on above: Performed By: #### C BC #### [facility] [address] [address] [address] Kavon Cardenas Platelet mean volume (Bld) [Entitic vol] 10.4 fL Normal 9.5-13.5 [facility] Comment on above: Performed By: #### C BC #### [facility] [address] [address] [address] Kavon Cardenas PLT 308 103/ul Normal 150-450 [facility] Comment on above: Performed By: #### C BC #### [facility] [address] [address] [address] Kavon Cardenas RBC 3.99 106/ul Critically low 4.20-5.40 [facility] Comment on above: Performed By: #### C BC #### [facility] [address] [address] [address] Kavon Cardenas WBC 17.1 103/ul Critically high 4.0-11.0 [facility] Comment on above: Performed By: #### C BC #### [facility] [address] [address] [address] Kavon Cardenas GLUCOSE - 1HRon 10-25-2022 Glucose [Mass/Vol] 139 mg/dL Critically high 74-106 [place] Comment on above: Performed By: #### F VPCR #### [facility] [address] [address] [address] Kavon Cardenas UA (CLEAN/CATCH) DOCUMENTATION MANAGER/MICRO I F IND.on 10-23-2022 Bilirubin Ql (U) Negative Normal NEGATIVE [facility] Comment on above: Performed By: #### A 1C #### [facility] [address] [place] [address] Dr. Kavon Cardenas Clarity (U) CLEAR Normal CLEAR [facility] Comment on above: Performed By: #### A 1C #### [facility] [address] [place] [address] Dr. Kavon Cardenas Color (U) LT. YELLOW Normal YELLOW [facility] Comment on above: Performed By: #### A 1C #### [facility] [address] [place] [address] Dr. Kavon Cardenas Glucose Ql (U) Negative Normal NEGATIVE [facility] Comment on above: Performed By: #### A 1C #### [facility] [address] [place] [address] Dr. Kavon Cardenas Hemoglobin Ql (U) Negative Normal NEGATIVE [facility] Comment on above: Performed By: #### A 1C #### [facility] [address] [place] [address] Dr. Kavon Cardenas Ketones Ql (U) Negative Normal NEGATIVE [facility] Comment on above: Performed By: #### A 1C #### [facility] [address] [place] [address] Dr. Kavon Cardenas LEUKOCYTES Negative Normal NEGATIVE [facility] Comment on above: Performed By: #### A 1C #### [facility] [address] [place] [address] Dr. Kavon Cardenas Nitrite Ql (U) Negative Normal NEGATIVE [facility] Comment on above: Performed By: #### A 1C #### [facility] [address] [place] [address] Dr. Kavon Cardenas pH (U) 5.5 [pH] Normal 5-9 [facility] Comment on above: Performed By: #### A 1C #### [facility] [address] [place] [address] Dr. Kavon Cardenas SPEC GRAVITY >=1.030 Abnormal 1.005-<=1.025 [facility] Comment on above: Performed By: #### A 1C #### [facility] [address] [address] [address] Kavon Cardenas UA PROTEIN Negative Normal NEGATIVE/ TRACE [facility] Comment on above: Performed By: #### A 1C #### [facility] [address] [address] [address] Kavon Cardenas UR MICRO IND NOT INDICATED Normal [facility] Comment on above: Performed By: #### A 1C #### [facility] [address] [address] [address] Kavon Cardenas Urobilinogen Qn (U) 0.2 {Bee'U}/dL Normal 0.2 - 1. [address] [facility] Comment on above: Performed By: #### A 1C #### [facility] [address] [place] [address] Dr. Kavon Cardenas Smear to Pathologiston 10-13 Smear to Pathologist ELECTRONICALLY SIGNED. MARIE ACOSTA M.D. Normal [facility] Comment on above: Performed By: #### P B, PATH, CDP, RETCT #### [facility] [address] [place] [address] Profile Shaper Operator: Miguel Betancourt MD Lead, Bloodon 10-12-2022 Lead, Blood 11 ug/dL High 0-4 [facility] Comment on above: Result Comment: Reference Ranges: All Ages 5 - <10 ug/dL Adverse health effects are possible, particularly in children under 6 years of age and women. Discuss health risks associated with continued lead exposure. For children and women who are or may become , reduce lead exposure. All Ages 10 - <20 ug/dL Reduced lead exposure and increased biological monitoring are recommended. All Ages 20 - <70 ug/dL Removal from lead exposure and prompt medical evaluation are recommended. Consider chelation therapy when concentrations exceed 50 ug/dL and symptoms of lead toxicity are present. <19 Years >44 ug/dL Critical. Immediate medical evaluation is recommended. Consider chelation therapy when symptoms of lead toxicity are present. >18 Years >69 ug/dL Critical. Immediate medical evaluation is recommended. Consider chelation therapy when symptoms of lead toxicity are present. Interpretive Information: Elevated results may be due to skin or capillary collection-related contamination. Elevated levels of blood lead should be confirmed with second specimen collected venously. Information sources for reference intervals and interpretive comments include the CDC Response to the 2012 Advisory Committee on Childhood Lead Poisoning Prevention Report and the Recommendations for Medical Management of Adult Lead Exposure, Environmental Health Perspectives, 2007. Contact your [facility] Department of Health and/or applicable regulatory agency for specific guidance on medical management recommendations. Performed By: #### P B, PATH, CDP, RETCT #### [facility] [address] [id number] Profile Shaper Operator: Miguel Betancourt MD CBC with Auto Differentialon 10-11-2022 Absolute Eos # 0.27 [facility] Absolute Immature Granulocyte 0.18 [facility] Absolute Lymph # 2.82 [facility] Absolute Eagle # 0.95 [facility] Basophils (Bld) [#/Vol] 0.04 10*3/uL [facility] Basophils/100 WBC (Bld) 0 % 0 - 2 % [facility] Eosinophils/100 WBC (Bld) 2 % 1 - 4 % [facility] Hematocrit (Bld) [Volume fraction] 35.9 % Low 36.3 - 47.1 % [facility] Hemoglobin (Bld) [Mass/Vol] 11.6 g/dL Low 11.9 - 15.1 g/dL [facility] Immature granulocytes/100 WBC (Bld) 1 % High 0 [facility] Lymphocytes/100 WBC (Bld) 19 % Low 24 - 43 % [facility] MCH (RBC) [Entitic mass] 29.0 pg 25.2 - 33.5 pg [facility] MCHC (RBC) [Mass/Vol] 32.3 g/dL 28.4 - 34.8 g/dL [facility] MCV (RBC) [Entitic vol] 89.8 fL 82.6 - 102.9 fL [facility] Monocytes/100 WBC (Bld) 6 % 3 - 12 % [facility] NRBC Automated 0.0 0.0 per 100 WBC [facility] Platelet distribution width (Bld) [Ratio] 14.6 % High 11.8 - 14.4 % [facility] Platelet mean volume (Bld) [Entitic vol] 10.5 fL 8.1 - 13.5 fL [facility] Platelets (Bld) [#/Vol] 294 10*3/uL [facility] RBC (Bld) [#/Vol] 4.00 10*6/uL 3.95 - 5.1 1 m/uL [facility] RBC (Bld) [#/Vol] ANISOCYTOSIS PRESENT [facility] Segmented neutrophils/100 WBC (Bld) 72 % High 36 - 65 % [facility] Segs Absolute 10.78 High [facility] WBC (Bld) [#/Vol] 15.0 10*3/uL High [facility] CBC with Diffon 10-11-2022 Abs. Basophil 0.04 k/uL Normal 0.00-0.20 [facility] Comment on above: Performed By: #### P B, PATH, CDP, RETCT #### [facility] [address] [place] [address] Profile Shaper Operator: Miguel Betancourt MD Abs.Imm.Granulocyte 0.18 k/uL Normal 0.00-0.30 [facility] Comment on above: Performed By: #### P B, PATH, CDP, RETCT #### [facility] [address] [place] [address] Profile Shaper Operator: Miguel Betancourt MD Abs.Neutrophil (Seg) 10.78 k/uL High 1.50-8.10 [facility] Comment on above: Performed By: #### P B, PATH, CDP, RETCT #### [facility] [address] [place] [address] Profile Shaper Operator: Miguel Betancourt MD Basophils/100 WBC (Bld) 0 % Normal 0-2 [facility] Comment on above: Performed By: #### P B, PATH, CDP, RETCT #### [facility] [address] [place] [address] Profile Shaper Operator: Miguel Betancourt MD Eosinophils (Bld) [#/Vol] 0.27 10*3/uL Normal 0.00-0.44 [facility] Comment on above: Performed By: #### P B, PATH, CDP, RETCT #### [facility] [employer] [address] [place] [id number] Profile Shaper Operator: Miguel Betancourt MD Eosinophils/100 WBC (Bld) 2 % Normal 1-4 [facility] Comment on above: Performed By: #### P B, PATH, CDP, RETCT #### [facility] [employer] [address] [place] [address] Profile Shaper Operator: Miguel Betancourt MD Erythrocyte distribution width (RBC) [Ratio] 14.6 % High 11.8-14.4 [facility] Comment on above: Performed By: #### P B, PATH, CDP, RETCT #### [facility] [employer] [address] [place] [address] Profile Shaper Operator: Miguel Betancourt MD Hematocrit (Bld) [Volume fraction] 35.9 % Low 36.3-47.1 [facility] Comment on above: Performed By: #### P B, PATH, CDP, RETCT #### [facility] [employer] [address] [place] [id number] Profile Shaper Operator: Miguel Betancourt MD Hemoglobin (Bld) [Mass/Vol] 11.6 g/dL Low 11.9-15.1 [facility] Comment on above: Performed By: #### P B, PATH, CDP, RETCT #### [facility] [employer] [address] [place] [id number] Profile Shaper Operator: Miguel Betancourt MD Immature granulocytes/100 WBC (Bld) 1 % High 0 [facility] Comment on above: Performed By: #### P B, PATH, CDP, RETCT #### [facility] [employer] [address] [place] [address] Profile Shaper Operator: Miguel Betancourt MD Lymphocytes (Bld) [#/Vol] 2.82 10*3/uL Normal 1.10-3.70 [facility] Comment on above: Performed By: #### P B, PATH, CDP, RETCT #### [address] [address] Profile Shaper Operator: Miguel Betancourt MD Lymphocytes/100 WBC (Bld) 19 % Low 24-43 [facility] Comment on above: Performed By: #### P B, PATH, CDP, RETCT #### [place] [address] Profile Shaper Operator: Miguel Betancourt MD MCH (RBC) [Entitic mass] 29.0 pg Normal 25.2-33.5 [facility] Comment on above: Performed By: #### P B, PATH, CDP, RETCT #### [place] [address] Profile Shaper Operator: Miguel Betancourt MD MCHC (RBC) [Mass/Vol] 32.3 g/dL Normal 28.4-34.8 [facility] Comment on above: Performed By: #### P B, PATH, CDP, RETCT #### [place] [address] Profile Shaper Operator: Miguel Betancourt MD MCV (RBC) [Entitic vol] 89.8 fL Normal 82.6-102.9 [facility] Comment on above: Performed By: #### P B, PATH, CDP, RETCT #### [place] [address] Profile Shaper Operator: Miguel Betancourt MD Monocytes (Bld) [#/Vol] 0.95 10*3/uL Normal 0.10-1.20 [facility] Comment on above: Performed By: #### P B, PATH, CDP, RETCT #### [address] [place] [address] Profile Shaper Operator: Miguel Betancourt MD Monocytes/100 WBC (Bld) 6 % Normal 3-12 [facility] Comment on above: Performed By: #### P B, PATH, CDP, RETCT #### [address] [address] Profile Shaper Operator: Miguel Betancourt MD Neutrophil (Seg) 72 % High 36-65 [facility] Comment on above: Performed By: #### P B, PATH, CDP, RETCT #### [address] [address] Profile Shaper Operator: Miguel Betancourt MD NRBC Automated 0.0 per 100 WBC Normal 0.0 [facility] Comment on above: Performed By: #### P B, PATH, CDP, RETCT #### [address] [address] Profile Shaper Operator: Miguel Betancourt MD Platelet mean volume (Bld) [Entitic vol] 10.5 fL Normal 8.1-13.5 [facility] Comment on above: Performed By: #### P B, PATH, CDP, RETCT #### [address] [address] Profile Shaper Operator: Miguel Betancourt MD Platelets (Bld) [#/Vol] 294 10*3/uL Normal 138-453 [facility] Comment on above: Performed By: #### P B, PATH, CDP, RETCT #### [address] [address] Profile Shaper Operator: Miguel Betancourt MD RBC (Bld) [#/Vol] 4.00 10*6/uL Normal 3.95-5.11 [facility] Comment on above: Performed By: #### P B, PATH, CDP, RETCT #### [address] [address] Profile Shaper Operator: Miguel Betancourt MD RBC morphology finding Nom (Bld) ANISOCYTOSIS PRESENT Normal [facility] Comment on above: Performed By: #### P B, PATH, CDP, RETCT #### [facility] [address] [place] [address] Profile Shaper Operator: Miguel Betancourt MD WBC (Bld) [#/Vol] 15.0 10*3/uL High 3.5-11.3 [facility] Comment on above: Performed By: #### P B, PATH, CDP, RETCT #### [facility] [address] [place] [address] Profile Shaper Operator: Miguel Betancourt MD No Panel Informationon 10-112 Interpretation and review of laboratory results Abnormal [facility] Retic Counton 10-11-2022 Absolute Retic 0.090 M/uL High 0.030-0.080 [facility] Comment on above: Performed By: #### P B, PATH, CDP, RETCT #### [facility] [address] [place] [address] Profile Shaper Operator: Miguel Betancourt MD IRF 24.100 % High 2.7-18.3 [facility] Comment on above: Performed By: #### P B, PATH, CDP, RETCT #### [facility] [address] [place] [address] Profile Shaper Operator: Miguel Betancourt MD Retic Count 2.2 % High 0.5-1.9 [facility] Comment on above: Performed By: #### P B, PATH, CDP, RETCT #### [facility] [address] [place] [address] Profile Shaper Operator: Miguel Betancourt MD Retic Hemoglobin 31.8 pg Normal 28.2-35.7 [facility] Comment on above: Performed By: #### P B, PATH, CDP, RETCT #### [employer] [address] [place], [place] [id number] Profile Shaper Operator: Miguel Betancourt MD Reticulocyteson 10-11-2022 Absolute Retic # 0.090 High [facility] Immature Retic Fract 24.1 % High 2.7 - 18.3 % [facility] Retic Hemoglobin 31.8 pg 28.2 - 35.7 pg [facility] Reticulocytes/100 RBC (Bld) 2.2 % High 0.5 - 1.9 % [facility] Surgical Pathologyon 023 Surgical Pathology (NOTE) [id number] [facility] CONSULTING PATHOLOGISTS [facility] ANATOMIC PATHOLOGY [address] [place] [id number] SURGICAL PATHOLOGY CONSULTATION Patient Name: DILMA KAUR MR#: [id number] Specimen #[id number] Procedures/Addenda PERIPHERAL BLOOD REPORT Date Ordered: 10/12/2022 Status: Signed Out Date Complete: 10/12/2022 By: Marie Acosta Date Reported: 10/12/2022 INTERPRETATION Peripheral blood: Slightly normocytic normochromic anemia with minimal anisopoikilocytosis. Leukocytosis with neutrophilia, with an otherwise normal morphology. Platelet morphology is unremarkable. RESULTS-COMMENTS PERIPHERAL BLOOD STUDY CBC: Please see the electronic health record for CBC parameters ([id number], 10/11/2022, 09:56). Note: The electronic health record is reviewed. Marie Acosta Source: A: Peripheral Blood Normal [facility] Comment on above: Performed By: #### P PPVS #### [employer] [facility] [place] [address] Profile Shaper Operator: Miguel Betancourt MD PAP ACOG PANEL 2: 23 to 31on 09-27-2022 . . Normal [facility] [place] Comment on above: Performed By: #### 4 [id number] #### [facility] [address] [place] [address] Dr. Kavon Cardenas Age Gdln ACOG Testing 23- Normal [facility] [place] Comment on above: Performed By: #### 4 [id number] #### [facility] [address] [place] [address] Dr. Kavon Cardenas DIAGNOSIS: Comment Normal [facility] [place] Comment on above: Result Comment: NEGA TIVE FOR INTRAEPITHELIAL LESION OR MALIGNANCY. Performed By: #### 4 [id number] #### [facility] [address] [place] [address] Dr. Kavon Cardenas Methodology: Comment Normal [facility] [place] Comment on above: Result Comment: This liquid based ThinPrep(R) pap test was screened with the use of an image guided system. Performed By: #### 4 [id number] #### [facility] [address] [place] [address] Dr. Kavon Cardenas Note: Comment Normal [facility] [place] Comment on above: Result Comment: The Pap smear is a screening test designed to aid in the detection of premalignant and malignant conditions of the uterine cervix. It is not a diagnostic procedure and should not be used as the sole means of detecting cervical cancer. Both false-positive and false-negative reports do occur. . Performed By: #### 4 [id number] #### [facility] [address] [place] [address] Dr. Kavon Cardenas Performed by: Comment Normal [facility] Comment on above: Result Comment: Garrick eHrnandez Binder Caser (ASCP) Performed By: #### 4 [id number] #### [facility] [address] [place] [address] Dr. Kavon Cardenas Reflex Criteria: Comment Normal [facility] Comment on above: Result Comment: The HPV DNA reflex criteria were not met with this specimen result therefore, no HPV testing was performed. . Performed By: #### 4 [id number] #### [facility] [address] [place] [address] Dr. Kavon aCrdenas Specimen adequacy: Comment Normal [facility] Comment on above: Result Comment: Sati sfactory for evaluation. No endocervical component is identified. Performed By: #### 4 [id number] #### [facility] [address] [place] [address] Dr. Kavon Cardenas CHLAMYDIA/GONOCOCCUS OLGA (SW AB/URINE/PAPon 09-21-2022 Chlamydia trachomatis, OLGA Negative Normal Negative [facility] Comment on above: Performed By: #### F VPCR #### [facility] [address] [place] [address] Dr. Kavon Cardenas Neisseria gonorrhoeae, OLGA Negative Normal Negative [facility] Comment on above: Performed By: #### F VPCR #### [facility] [address] [place] [address] Dr. Kavon Cardenas VAGINITIS/VAGINOSIS DNA PROB Fidencio 09-21-2022 Jada species Negative Normal Negative [facility] Comment on above: Performed By: #### C ARDIGM #### [facility] [address] [place] [address] Dr. Kavon Cardenas Gardnerella vaginalis Negative Normal Negative [facility] Comment on above: Performed By: #### C ARDIGM #### [facility] [address] [place] [address] Dr. Kavon Cardenas Trichomonas vaginalis Negative Normal Negative [facility] Comment on above: Performed By: #### C ARDIGM #### [facility] [address] [place] [address] Dr. Kavon Cardenas CBC AUTO DIFFon 09-17-2022 BASO # 0.1 103/ul Normal 0.0-0.1 [facility] [place] Comment on above: Performed By: #### C BC #### [facility] [address] [place] [address] Dr. Kavon Cardenas Basophils/100 WBC (Bld) 0.3 % Normal 0.2-2.0 [facility] Comment on above: Performed By: #### C BC #### [facility] [address] [place] [address] Dr. Kavon Cardenas EO # 0.1 103/ul Normal 0.0-0.7 [facility] Comment on above: Performed By: #### C BC #### [facility] [address] [place] [address] Dr. Kavon Cardenas Eosinophils/100 WBC (Bld) 0.6 % Critically low 0.9-7.0 [facility] Comment on above: Performed By: #### C BC #### [facility] [address] [place] [address] Dr. Kavon Cardenas Erythrocyte distribution width (RBC) [Ratio] 14.5 % Normal 11.0-15.0 [facility] Comment on above: Performed By: #### C BC #### [facility] [address] [place] [address] Dr. Kavon Cardenas Hematocrit (Bld) [Volume fraction] 35.2 % Critically low 36.0-48.0 [facility] Comment on above: Performed By: #### C BC #### [facility] [address] [place] [address] Dr. Kavon Cardenas Hemoglobin (Bld) [Mass/Vol] 11.6 g/dL Critically low 12.0-16.0 [facility] Comment on above: Performed By: #### C BC #### [facility] [address] [place] [address] Dr. Kavon Cardenas IG # 0.10 10e3/ul Critically high 0.00-0.03 [facility] Comment on above: Performed By: #### C BC #### [facility] [address] [place] [address] Dr. Kavon Cardenas IG % 0.5 % Normal 0.0-0.5 [facility] Comment on above: Performed By: #### C BC #### [facility] [address] [place] [address] Dr. Kavon Cardenas LYMPH # 1.6 103/ul Normal 1.2-3.8 [facility] Comment on above: Performed By: #### C BC #### [facility] [address] [place] [address] Dr. Kavon Cardenas Lymphocytes/100 WBC (Bld) 8.9 % Critically low 20.5-60.0 [facility] Comment on above: Performed By: #### C BC #### [facility] [address] [place] [address] Dr. Kavon Cardenas MANUAL DIFF REQ NO Normal [facility] Comment on above: Performed By: #### C BC #### [facility] [address] [place] [address] [address] Kavon Cardenas MCH (RBC) [Entitic mass] 28.7 pg Normal 26.7-34.[address] [facility] Comment on above: Performed By: #### C BC #### [facility] [address] [place] [address] Dr. Kavon Cardenas MCHC (RBC) [Mass/Vol] 33.0 g/dL Normal 29.9-35.[address] [facility] Comment on above: Performed By: #### C BC #### [facility] [address] [place] [address] Dr. Kavon Cardenas MCV (RBC) [Entitic vol] 87.1 fL Normal 81.0-99.0 [facility] Comment on above: Performed By: #### C BC #### [facility] [address] [place] [address] Dr. Kavon Cardenas MONO # 0.9 103/ul Critically high 0.3-0.8 [facility] Comment on above: Performed By: #### C BC #### [facility] [address] [place] [address] Dr. Kavon Cardenas Monocytes/100 WBC (Bld) 4.8 % Normal 1.7-12.0 [facility] Comment on above: Performed By: #### C BC #### [facility] [address] [place] [address] Dr. Kavon Cardenas NEUT # 15.5 103/ul Critically high 1.4-6.5 [facility] Comment on above: Performed By: #### C BC #### [facility] [address] [place] [address] Dr. Kavon Cardenas Neutrophils/100 WBC (Bld) 84.9 % Critically high 43.0-75.[address] [facility] Comment on above: Performed By: #### C BC #### [facility] [address] [place] [address] Dr. Kavon Cardenas Platelet mean volume (Bld) [Entitic vol] 10.4 fL Normal 9.5-13.[address] [facility] Comment on above: Performed By: #### C BC #### [facility] [address] [place], [place] [address] Dr. Kavon Cardenas PLT 305 103/ul Normal 150-[address] [facility] Comment on above: Performed By: #### C BC #### [facility] [address] [place], [place] [address] Dr. Kavon Cardenas RBC 4.04 106/ul Critically low 4.20-5.40 [facility] Comment on above: Performed By: #### C BC #### [facility] [address] [place], [place] [address] Dr. Kavon Cardenas WBC 18.3 103/ul Critically high 4.0-11.0 [facility] Comment on above: Performed By: #### C BC #### [facility] [address] [place], [place] [address] Dr. Kavon Cardenas CTA CHEST WO W CONon 023 CTA CHEST WO W CON EXAMINATION: CTA CHEST WO W CON, 09/17/2022 1:56 PM PDT HISTORY: shortness of breath or wheezing COMPARISON: None. TECHNIQUE: CT angiogram of the chest (per pulmonary embolus protocol) with contrast. Coronal and sagittal 3D MIP rendered images were created. ALARA Utilization: Dose reduction technique was used including one or more of the following: automated exposure control, iterative reconstruction technique, adjustment of mA and kV according patient size and/or scan done according to ALARA (exposure dose as low as reasonably achievable). FINDINGS: CTA: Limited exam secondary contrast timing and motion artifact. No evidence of pulmonary artery filling defects. LUNGS: No significant finding. AIRWAYS: Minimal bibasilar distal airway mucus plugging. PLEURA: No significant finding. MEDIASTINUM AND LIAT: No significant finding. HEART AND PERICARDIUM: No significant finding. VESSELS: As above. CHEST WALL: No significant finding. NECK BASE: No significant finding. UPPER ABDOMEN: Tiny hiatal hernia. BONES: No significant finding. IMPRESSION: No evidence of pulmonary emboli. Minimal bibasilar distal airway mucus plugging. Tiny hiatal hernia. Electronically authenticated by: ALENA ELY Date: 2022-09-17 17:59 Normal [facility] SARS-CoV-2 (COVID-19) RNA OLGA+probe Ql (Unsp spec) Not detected Normal NOT DETECTED [facility] Comment on above: Result Comment: When diagnostic testing is negative, the possibility of a false negative should be considered in the context of a patient's recent exposures and the presence of clinical signs and symptoms consistent with SARS-CoV-2. This test is not yet approved or cleared by the [place] FDA. When there are no FDA-approved or cleared tests available, and other criteria are met, FDA can make tests available under an emergency access mechanism called an Emergency Use Authorization (EUA). The EUA for this test is supported by the [place] of Health and Human Service's declaration that circumstances exist to justify the emergency use of in vitro diagnostics for the detection and/or diagnosis of the virus that causes COVID-19. This EUA will remain in effect for the duration of the COVID-19 declaration justifying emergency of IVDs, unless it is terminated or revoked by the FDA (after which the test may no longer be used). Performed By: #### B GLYIGM #### [facility] [address] [place] [address] Dr. Kavon Cardenas ER URINE PROFILEon 3 Bilirubin Ql (U) Negative Normal NEGATIVE [facility] Comment on above: Performed By: #### A 1C #### [facility] [address] [place] [address] Dr. Kavon Cardenas Clarity (U) CLEAR Normal CLEAR [facility] Comment on above: Performed By: #### A 1C #### [facility] [address] [place] [address] Dr. Kavon Cardenas Color (U) YELLOW Normal YELLOW [facility] Comment on above: Performed By: #### A 1C #### [facility] [address] [place] [address] Dr. Kavon SANCHEZ A micrscopic examination will be performed if indicated. Normal [facility] Comment on above: Performed By: #### A 1C #### [facility] [address] [place] [address] Dr. Kavon Cardenas Glucose Ql (U) Negative Normal NEGATIVE [facility] Comment on above: Performed By: #### A 1C #### [facility] [address] [place] [address] Dr. Kavon Cardenas Hemoglobin Ql (U) Negative Normal NEGATIVE [facility] Comment on above: Performed By: #### A 1C #### [facility] [address] [place] [address] Dr. Kavon Cardenas Ketones Ql (U) Negative Normal NEGATIVE [facility] Comment on above: Performed By: #### A 1C #### [facility] [address] [place] [address] Dr. Kavon Cardenas LEUKOCYTES Negative Normal NEGATIVE [facility] [place] Comment on above: Performed By: #### A 1C #### [facility] [address] [place] [address] Dr. Kavon Cardenas Nitrite Ql (U) Negative Normal NEGATIVE [facility] Comment on above: Performed By: #### A 1C #### [facility] [address] [place] [address] Dr. Kavon Cardenas pH (U) 6.5 [pH] Normal 5-9 [facility] Comment on above: Performed By: #### A 1C #### [facility] [address] [place] [address] Dr. Kavon Cardenas SPEC GRAVITY 1.025 Normal 1.005-<=1.025 [facility] Comment on above: Performed By: #### A 1C #### [facility] [address] [place] [address] Dr. Kavon Cardenas UA PROTEIN Negative Normal NEGATIVE/ TRACE [facility] Comment on above: Performed By: #### A 1C #### [facility] [address] [place] [address] Dr. Kavon Cardenas UR MICRO IND NOT INDICATED Normal [facility] Comment on above: Performed By: #### A 1C #### [facility] [address] [place] [address] Dr. Kavon Cardenas Urobilinogen Qn (U) 0.2 {Bee'U}/dL Normal 0.2 - 1. 0 [facility] Comment on above: Performed By: #### A 1C #### [facility] [address] [place] [address] Dr. Kavon Cardenas INFLUENZA A [facility] 09[facility] Normal [facility] Comment on above: Result Comment: Nega tive for Flu A protein angiten. Infection due to Flu A cannot be ruled out. Flu A angiten in the sample may be below the detection limit of the test. Performed By: #### F VPCR #### [facility] [address] [place] [address] Dr. Kavon Cardenas INFLUBNEGH SEE BELOW Normal [facility] Comment on above: Result Comment: Nega tive for Flu B protein antigen. Infection due to Flu B cannot be ruled out. Flu B antigen in the sample may be below the detection limit of the test. Performed By: #### F VPCR #### [facility] [address] [place] [address] Dr. Kavon Cardenas INFLUENZA A AG Negative Normal NEGATIVE SEE COMMENT [facility] Comment on above: Performed By: #### F VPCR #### [facility] [address] [place] [address] Dr. Kavon Cardenas INFLUENZA B AG Negative Normal NEGATIVE SEE COMMENT [facility] Comment on above: Performed By: #### F VPCR #### [facility] [address] [place] [address] Dr. Kavon Cardenas PROF 14(COMP METB)on 023 Albumin [Mass/Vol] 3.1 g/dL Critically low 3.4-5.[address] [facility] Comment on above: Performed By: #### C ARDIGM #### [facility] [address] [place] [address] Dr. Kavon Cardenas Albumin/Globulin [Mass ratio] 0.8 {ratio} Normal [facility] Comment on above: Performed By: #### C ARDIGM #### [facility] [address] [place] [address] Dr. Kavon Cardenas ALP [Catalytic activity/Vol] 100 U/L Normal 46-[address] [facility] Comment on above: Performed By: #### C ARDIGM #### [facility] [address] [place] [address] [address] Kavon Cardenas ALT [Catalytic activity/Vol] 30 U/L Normal 14-59 [facility] Comment on above: Performed By: #### C ARDIGM #### [facility] [address] [place] [address] [address] Kavon Cardenas Anion gap [Moles/Vol] 14.0 mmol/L Normal Th [facility] Comment on above: Performed By: #### C ARDIGM #### [facility] [address] [place] [address] [address] Kavon Cardenas AST [Catalytic activity/Vol] 17 U/L Normal 15-37 [facility] Comment on above: Performed By: #### C ARDIGM #### [facility] [address] [place] [address] Dr. Kavon Cardenas Bilirubin [Mass/Vol] 0.1 mg/dL Critically low 0.2-1.0 [facility] Comment on above: Performed By: #### C ARDIGM #### [facility] [address] [place] [address] Dr. Kavon Cardenas Calcium [Mass/Vol] 8.8 mg/dL Normal 8.5-10.1 [facility] Comment on above: Performed By: #### C ARDIGM #### [facility] [address] [place] [address] Dr. Kavon Cardenas Chloride [Moles/Vol] 105 mmol/L Normal 98-[address] [facility] Comment on above: Performed By: #### C ARDIGM #### [facility] [address] [place] [address] Dr. Kavon Cardenas CO2 [Moles/Vol] 22.7 mmol/L Normal 21.0-32.0 [facility] Comment on above: Performed By: #### C ARDIGM #### [facility] [address] [place] [address] Dr. Kavon Cardenas Creatinine [Mass/Vol] 0.65 mg/dL Normal 0.55-1.02 [facility] Comment on above: Performed By: #### C ARDIGM #### [facility] [address] [place] [address] [address] Kavon Cardenas EGFR-AF UZBEK >60 Normal >=60 [facility] Comment on above: Performed By: #### C ARDIGM #### [facility] [address] [place] [address] [address] Kavon Cardenas EGFR-NON AF UZBEK >60 Normal >=60 [facility] Comment on above: Performed By: #### C ARDIGM #### [facility] [address] [place] [address] [address] Kavon Cardenas Globulin (S) [Mass/Vol] 4.0 g/dL Normal [facility] Comment on above: Performed By: #### C ARDIGM #### [address] [facility] [address] [place] [address] Dr. Kavon Cardenas Glucose [Mass/Vol] 100 mg/dL Normal 74-106 [facility] Comment on above: Performed By: #### C ARDIGM #### [facility] [address] [address] [address] Kavon Cardenas Potassium [Moles/Vol] 3.7 mmol/L Normal 3.5-5.[address] [facility] Comment on above: Performed By: #### C ARDIGM #### [facility] [address] [place] [address] Dr. Kavon Cardenas Protein [Mass/Vol] 7.1 g/dL Normal 6.4-8.2 [facility] Comment on above: Performed By: #### C ARDIGM #### [facility] [address] [address] [address] Kavon Cardenas Sodium [Moles/Vol] 138 mmol/L Normal 136-145 [facility] Comment on above: Performed By: #### C ARDIGM #### [facility] [address] [address] [address] Kavon Cardenas Urea nitrogen [Mass/Vol] 6.0 mg/dL Critically low 7.0-18.0 [facility] Comment on above: Performed By: #### C ARDIGM #### [facility] [address] [place] [address] Dr. Kavon Cardenas Urea nitrogen/Creatinine [Mass ratio] 9.2 mg/mg Normal [facility] Comment on above: Performed By: #### C ARDIGM #### [facility] [address] [place] [address] Dr. Kavon Cardenas PROTIMEon 09-17-2022 INR Coag (PPP) [Relative time] {INR} Normal [facility] Comment on above: Performed By: #### A 1C #### [facility] [address] [place] [address] Dr. Kavon aCrdenas INR GUIDELINES SEE BELOW Normal [facility] Comment on above: Result Comment: GODWIN RED INR: 2.0 - 3.0 CONDITIONS NOT LISTED BELOW 2.5 - 3.5 FOR PROSTHETIC HEART VALVE REPLACEMENT 2.5 - 3.5 RECURRENT THROMBOSIS Performed By: #### A 1C #### [facility] [address] [place] [address] Dr. Kavon Cardenas PT Coag (PPP) [Time] 9.3 s Normal 9.0-11.[address] [facility] Comment on above: Performed By: #### A 1C #### [facility] [address] [place] [address] Dr. Kavon Cardenas PTTon 09-17-2022 aPTT Coag (Bld) [Time] 24.8 s Normal 22.3-36.[address] [facility] Comment on above: Performed By: #### C ARDIGM #### [facility] [address] [place] [address] Dr. Kavon Cardenas TROPONIN, HIGH SENSITIVITYon 09-17-2022 HSTROP <4.0 Normal 4.0-51.[address] [facility] Comment on above: Result Comment: CUT- OFF POINTS HAVE BEEN ESTABLISHED BASED ON THE FOURTH UNIVERSAL DEFINITIONS OF MYOCARDIAL INFARCTION. THE UPPER REFERENCE LIMIT (URL) OF TROPONIN, DEFINED THE 99TH PERCENTILE OF cTnI DISTRIBUTION IN A REFERENCE POPULATION, HAS BEEN CONFIRMED THE DECISION THRESHOLD FOR CA DIAGNOSIS. Performed By: #### A 1C #### [facility] [address] [place] [address] Dr. Kavon Cardenas XR CHEST 1 Von 09-17-2022 XR CHEST 1 V EXAMINATION: XR CHES T 1 V HISTORY: Chest pain COMPARISON: None. TECHNIQUE: Portable chest FINDINGS: The lung parenchyma is free of consolidation or infiltrate. No pneumothorax or pleural effusion. The cardiac, mediastinal and hilar contours are normal. The visualized osseous structures exhibit no gross abnormality. IMPRESSION: Normal chest x-ray Electronically authenticated by: JORDAN ALVES Date: 2022-09-17 16:39 Normal [facility] GLUCOSE - 1HRon 09-11-2022 Glucose [Mass/Vol] 112 mg/dL Critically high 74-106 T [facility] Comment on above: Performed By: #### G LU1HR #### [facility] [address] [address] [address] Kavon Cardenas PT Mutation [id number] 09-12-19 PT [id number] VARIANT Negative Normal [facility] Comment on above: Result Comment: (NOT E) Indication for testing: Assess genetic risk for thrombosis. NEGATIVE: The Factor II, prothrombin C76949G mutation, was not detected. Other causes of elevated prothrombin levels and hereditary forms of venous thrombosis have not been excluded. Recommendations: If clinically indicated, testing for other inherited or acquired thrombophilic disorders is recommended including DNA testing for the factor V Leiden mutation, measurement of total plasma homocysteine concentration, serological assays for anticardiolipin antibodies, multiple phospholipid-dependent coagulation assays for lupus inhibitor, protein C activity, protein S activity or free protein S antigen, and antithrombin activity. This result has been reviewed and approved by Alda Saab M.D., Ph.D. 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 The expression of Factor II thrombophilia is impacted by coexisting genetic thrombophilic disorders, acquired thrombophilic disorders (eg, malignancy, hyperhomocysteinemia, high factor VIII levels), and circumstances including: , oral contraceptive use, hormone replacement therapy, selective estrogen receptor modulators, travel, central venous catheters, surgery, and organ transplantation. INCIDENCE: Approximately 2 percent of Caucasians and 0.3 percent of Americans are heterozygous; homozygosity occurs in 1 in 10,000 individuals. INHERITANCE: Incomplete autosomal dominant. PENETRANCE: The risk of thrombosis is increased 2-4 fold for heterozygotes and further increased for homozygotes. 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 PATHOGENIC VARIANT TESTED: F2 c.*97G>A ([id number]). CLINICAL SENSITIVITY FOR VENOUS THROMBOSIS: Approximately 10 percent. METHODOLOGY: Polymerase chain reaction and fluorescence monitoring. ANALYTICAL SENSITIVITY AND SPECIFICITY: 99 percent. LIMITATIONS: Diagnostic errors can occur due to rare sequence variations. F2 gene variants, other than c.*97G>A (Y12193J), will not be detected. This test was developed and its performance characteristics determined by [facility]. It has not been cleared or approved by the US Food and Drug Administration. This test was performed in a CLIA certified laboratory and is intended for clinical purposes. Counseling and informed consent are recommended for genetic testing. Consent forms are available online. Performed by [facility], [address] [place] [address] [email or web address], Ostio Barnett MD, PHD, Lab. Director Performed By: #### P B #### [address] [address] Profile Shaper Operator: Miguel Betancourt MD #### APTMUT #### [address] [address] Profile Shaper Operator: Nikhil Barragan MD #### AAFPM #### [address] [address] Profile Shaper Operator: Miguel Betancourt MD [address] [id number] Profile Shaper Operator: Nikhil Barragan MD PT PCR SPECIMEN Whole Blood Normal [facility] Comment on above: Performed By: #### P B #### [address] [address] Profile Shaper Operator: Miguel Betancourt MD #### APTMUT #### [facility] [employer] [address] [place] [address] Profile Shaper Operator: Nikhil Barragan MD #### AAFPM #### [address] [address] Profile Shaper Operator: Miguel Betancourt MD [facility] [address] [place] [address] Profile Shaper Operator: Nikhil Barragan MD AFP, Maternalon 09-09-2022 Determined by Other Normal [facility] Comment on above: Performed By: #### P B #### [address] [address] Profile Shaper Operator: Miguel Betancourt MD #### APTMUT #### [facility] [address] [place] [address] Profile Shaper Operator: Nikhil Barragan MD #### AAFPM #### [address] [address] Profile Shaper Operator: Miguel Betancourt MD [facility] [address] [place] [address] Profile Shaper Operator: Nikhil Barragan MD Due Date SEE NOTE Normal [facility] Comment on above: Result Comment: Resu lts for Estimated Due Date: 02 14 23 Performed By: #### P B #### [address] [address] Profile Shaper Operator: Miguel Betancourt MD #### APTMUT #### [facility] [address] [place] [address] Profile Shaper Operator: Nikhil Barragan MD #### AAFPM #### [address] [address] Profile Shaper Operator: Miguel Betancourt MD [facility] [address] [place] [address] Profile Shaper Operator: Nikhil Barragan MD Family History No Normal [facility] Comment on above: Performed By: #### P B #### [address] [address] Profile Shaper Operator: Miguel Betancourt MD #### APTMUT #### [facility] [address] [place] [address] Profile Shaper Operator: Nikhil Barragan MD #### AAFPM #### [address] [address] Profile Shaper Operator: Miguel Betancourt MD [facility] [address] [place] [address] Profile Shaper Operator: Nikhil Barragan MD Gestat Age (exact) 17 wks, 0 days Normal [facility] Comment on above: Performed By: #### P B #### [address] [address] Profile Shaper Operator: Miguel Betancourt MD #### APTMUT #### [facility] [address] [place] [address] Profile Shaper Operator: Nikhil Barragan MD #### AAFPM #### [address] [address] Profile Shaper Operator: Miguel Betancourt MD [address] [address] Profile Shaper Operator: Nikhil Barragan MD Ins Req Matern Diab No Normal [facility] Comment on above: Performed By: #### P B #### [address] [address] Profile Shaper Operator: Miguel Betancourt MD #### APTMUT #### [facility] [address] [place] [address] Profile Shaper Operator: Nikhil Barragan MD #### AAFPM #### [address] [address] Profile Shaper Operator: Miguel Betancourt MD [facility] [address] [place] [address] Profile Shaper Operator: Nikhil Barragan MD Interpretation Screen Neg [facility] Comment on above: Result Comment: (NOT E) INTERPRETATION: SCREEN NEGATIVE for open spina bifida Neural Tube Defects (NTD) Negative Pre-Test Post-Test Cutoff Neural Tube Defects Risks 1:1030 < 1:80881 1:250 Comments: The risk of an open neural tube defect is less than the screening cut-off. This test was developed and its performance characteristics determined by [facility]. It has not been cleared or approved by the US Food and Drug Administration. This test was performed in a CLIA certified laboratory and is intended for clinical purposes. Performed By: #### P B #### [address] [address] Profile Shaper Operator: Miguel Betancourt MD #### APTMUT #### [facility] [address] [place] [address] Profile Shaper Operator: Nikhil Barragan MD #### AAFPM #### [address] [address] Profile Shaper Operator: Miguel Betancourt MD [facility] [address] [place], [place] [id number] Profile Shaper Operator: Nikhil Barragan MD [age] [facility] Comment on above: Performed By: #### P B #### [address] [address] Profile Shaper Operator: Miguel Betancourt MD #### APTMUT #### [facility] [address] [place] [address] Profile Shaper Operator: Nikhil Barragan MD #### AAFPM #### [address] [address] Profile Shaper Operator: Miguel Betancourt MD [facility] [address] [place], [place] [id number] Profile Shaper Operator: Nikhil Barragan MD Maternal Race Nonblack [facility] Comment on above: Performed By: #### P B #### [facility] [address] [place] [address] Profile Shaper Operator: Miguel Betancourt MD #### APTMUT #### [facility] [address] [place] [address] Profile Shaper Operator: Nikhil Barragan MD #### AAFPM #### [facility] [address] [place] [address] Profile Shaper Operator: Miguel Betancourt MD [facility] [address] [place] [address] Profile Shaper Operator: Nikhil Barragan MD Maternal Weight 230.0 lbs. [facility] Comment on above: Performed By: #### P B #### [facility] [address] [place] [address] Profile Shaper Operator: Miguel Betancourt MD #### APTMUT #### [facility] [address] [place] [address] Profile Shaper Operator: Nikhil Barragan MD #### AAFPM #### [facility] [address] [place] [address] Profile Shaper Operator: Miguel Betancourt MD [facility] [address] [place] [address] Profile Shaper Operator: Nikhil Barragan MD MoM for AFP 0.93 [facility] Comment on above: Performed By: #### P B #### [facility] [address] [place] [address] Profile Shaper Operator: Miguel Betancourt MD #### APTMUT #### [facility] [address] [place] [address] Profile Shaper Operator: Nikhil Barragan MD #### AAFPM #### [facility] [address] [place] [address] Profile Shaper Operator: Miguel Betancourt MD [facility] [address] [place] [address] Profile Shaper Operator: Nikhil Barragan MD Number of Fetuses Yee Normal [facility] Comment on above: Performed By: #### P B #### [facility] [address] [place] [address] Profile Shaper Operator: Miguel Betancourt MD #### APTMUT #### [facility] [address] [place] [address] Profile Shaper Operator: Nikhil Barragan MD #### AAFPM #### [address] [address] Profile Shaper Operator: Miguel Betancourt MD [facility] [address] [place] [address] Profile Shaper Operator: Nikhil Barragan MD Patient's AFP 27 ng/mL Normal [facility] Comment on above: Performed By: #### P B #### [address] [address] Profile Shaper Operator: Miguel Betancourt MD #### APTMUT #### [facility] [address] [place] [address] Profile Shaper Operator: Nikhil Barragan MD #### AAFPM #### [address] [address] Profile Shaper Operator: Miguel Betancourt MD [facility] [address] [place] [address] Profile Shaper Operator: Nikhil Barragan MD Smoking Unknown [facility] Comment on above: Performed By: #### P B #### [facility] [address] [place] [address] Profile Shaper Operator: Miguel Betancourt MD #### APTMUT #### [facility] [address] [place] [address] Profile Shaper Operator: Nikhil Barragan MD #### AAFPM #### [address] [address] Profile Shaper Operator: Miguel Betancourt MD [address] [address] Profile Shaper Operator: Nikhil Barragan MD Specimen See Note Normal [facility] Comment on above: Result Comment: (NOT E) Initial sample Performed by [facility], [address] [place] [address] www.[email or web address], Osito Barnett MD, PHD, Lab. Director Performed By: #### P B #### [address] [address] Profile Shaper Operator: Miguel Betancourt MD #### APTMUT #### [address] [address] Profile Shaper Operator: Nikhil Barragan MD #### AAFPM #### [address] [address] Profile Shaper Operator: Miguel Betancourt MD [address] [id number] Profile Shaper Operator: Nikhil Barragan MD [facility] [place] [facility] 09-07-2022 Current Smoking INFORMATION NOT PROVIDED [facility] Comment on above: Performed By: #### P B #### [address] [address] Profile Shaper Operator: Miguel Betancourt MD #### APTMUT #### [address] [address] Profile Shaper Operator: Nikhil Barragan MD #### AAFPM #### [address] [address] Profile Shaper Operator: Miguel Betancourt MD [address] [address] Profile Shaper Operator: Nikhil Barragan MD Dating LMP [facility] Comment on above: Performed By: #### P B #### [facility] [address] [place] [address] Profile Shaper Operator: Miguel Betancourt MD #### APTMUT #### [facility] [address] [place] [address] Profile Shaper Operator: Nikhil Barragan MD #### AAFPM #### [facility] [address] [place] [address] Profile Shaper Operator: Miguel Betancourt MD [facility] [address] [place] [address] Profile Shaper Operator: Nikhil Barragan MD Diabetic Negative [facility] Comment on above: Performed By: #### P B #### [address] [address] Profile Shaper Operator: Miguel Betancourt MD #### APTMUT #### [facility] [address] [place] [address] Profile Shaper Operator: Nikhil Barragan MD #### AAFPM #### [address] [address] Profile Shaper Operator: Miguel Betancourt MD [facility] [address] [place] [address] Profile Shaper Operator: Nikhil Barragan MD Donor Egg INFORMATION NOT PROVIDED [facility] Comment on above: Performed By: #### P B #### [facility] [address] [place] [address] Profile Shaper Operator: Miguel Betancourt MD #### APTMUT #### [facility] [address] [place] [address] Profile Shaper Operator: Nikhil Barragan MD #### AAFPM #### [facility] [address] [place] [address] Profile Shaper Operator: Miguel Betancourt MD [facility] [address] [place] [address] Profile Shaper Operator: Nikhil Barragan MD Estimated Due Date [facility] Comment on above: Performed By: #### P B #### [address] [address] Profile Shaper Operator: Miguel Betancourt MD #### APTMUT #### [facility] [address] [place] [address] Profile Shaper Operator: Nikhil Barragan MD #### AAFPM #### [address] [address] Profile Shaper Operator: Miguel Betancourt MD [facility] [address] [place] [address] Profile Shaper Operator: Nikhil Barragan MD Family History Negative [facility] Comment on above: Performed By: #### P B #### [address] [address] Profile Shaper Operator: Miguel Betancourt MD #### APTMUT #### [facility] [address] [place] [address] Profile Shaper Operator: Nikhil Barragan MD #### AAFPM #### [address] [address] Profile Shaper Operator: Miguel Betancourt MD [facility] [address] [place] [address] Profile Shaper Operator: Nikhil Barragan MD In Vitro Fertalizat INFORMATION NOT PROVIDED [facility] Comment on above: Performed By: #### P B #### [address] [address] Profile Shaper Operator: Miguel Betancourt MD #### APTMUT #### [facility] [address] [place] [address] Profile Shaper Operator: Nikhil Barragan MD #### AAFPM #### [facility] [address] [place] [address] Profile Shaper Operator: Miguel Betancourt MD [facility] [address] [place] [address] Profile Shaper Operator: iNkhil Barragan MD LMP date [id number] [facility] Comment on above: Performed By: #### P B #### [facility] [address] [place] [address] Profile Shaper Operator: Miguel Betancourt MD #### APTMUT #### [facility] [address] [place] [address] Profile Shaper Operator: Nikhil Barragan MD #### AAFPM #### [address] [address] Profile Shaper Operator: iMguel Betancourt MD [facility] [address] [place] [address] Profile Shaper Operator: Nikhil Barragan MD Maternal date [id number] [facility] Comment on above: Performed By: #### P B #### [address] [address] Profile Shaper Operator: Miguel Betancourt MD #### APTMUT #### [facility] [address] [place] [address] Profile Shaper Operator: Nikhil Barragan MD #### AAFPM #### [address] [address] Profile Shaper Operator: Miguel Betancourt MD [facility] [address] [place] [address] Profile Shaper Operator: Nikhil Barragan MD Maternal Weight 230 [facility] Comment on above: Performed By: #### P B #### [address] [address] Profile Shaper Operator: Miguel Betancourt MD #### APTMUT #### [facility] [address] [place] [address] Profile Shaper Operator: Nikhil Barragan MD #### AAFPM #### [address] [address] Profile Shaper Operator: Miguel Betancourt MD [facility] [address] [place] [address] Profile Shaper Operator: Nikhil Barragan MD Monochorionic Twins INFORMATION NOT PROVIDED [facility] Comment on above: Performed By: #### P B #### [address] [address] Profile Shaper Operator: Miguel Betancourt MD #### APTMUT #### [facility] [address] [place] [address] Profile Shaper Operator: Nikhil Barragan MD #### AAFPM #### [address] [address] Profile Shaper Operator: Miguel Betancourt MD [facility] [address] [place] [address] Profile Shaper Operator: Nikhil Barragan MD Patient Weight Units LB [facility] Comment on above: Performed By: #### P B #### [address] [address] Profile Shaper Operator: Miguel Betancourt MD #### APTMUT #### [facility] [address] [place] [address] Profile Shaper Operator: Nikhil Barragan MD #### AAFPM #### [address] [address] Profile Shaper Operator: Miguel Betancourt MD [facility] [address] [place] [address] Profile Shaper Operator: Nikhil Barragan MD Race (Maternal) WHITE [facility] Comment on above: Performed By: #### P B #### [facility] [place] [address] Profile Shaper Operator: Miguel Betancourt MD #### APTMUT #### [facility] [address] [place] [address] Profile Shaper Operator: Nikhil Barragan MD #### AAFPM #### [facility] [address] [place] [address] Profile Shaper Operator: Miguel Betancourt MD [facility] [address] [place] [address] Profile Shaper Operator: Nikhil Barragan MD Repeat Specimen INFORMATION NOT PROVIDED Normal [facility] Comment on above: Performed By: #### P B #### [address] [address] Profile Shaper Operator: Miguel Betancourt MD #### APTMUT #### [facility] [address] [place] [address] Profile Shaper Operator: Nikhil Barragan MD #### AAFPM #### [address] [address] Profile Shaper Operator: Miguel Betancourt MD [facility] [address] [place] [address] Profile Shaper Operator: Nikhil Barragan MD Valproic/Carbamazep INFORMATION NOT PROVIDED [facility] Comment on above: Performed By: #### P B #### [facility] [address] [place] [address] Profile Shaper Operator: Miguel Betancourt MD #### APTMUT #### [facility] [address] [place] [address] Profile Shaper Operator: Nikhil Barragan MD #### AAFPM #### [address] [address] Profile Shaper Operator: Miguel Betancourt MD [facility] [address] [place], [place] [id number] Profile Shaper Operator: Nikhil Barragan MD Lead, Bloodon 09-07-2022 Lead, Blood 7 ug/dL High 0-4 [facility] Comment on above: Result Comment: Reference Ranges: All Ages 5 - <10 ug/dL Adverse health effects are possible, particularly in children under 6 years of age and women. Discuss health risks associated with continued lead exposure. For children and women who are or may become , reduce lead exposure. All Ages 10 - <20 ug/dL Reduced lead exposure and increased biological monitoring are recommended. All Ages 20 - <70 ug/dL Removal from lead exposure and prompt medical evaluation are recommended. Consider chelation therapy when concentrations exceed 50 ug/dL and symptoms of lead toxicity are present. <19 Years >44 ug/dL Critical. Immediate medical evaluation is recommended. Consider chelation therapy when symptoms of lead toxicity are present. >18 Years >69 ug/dL Critical. Immediate medical evaluation is recommended. Consider chelation therapy when symptoms of lead toxicity are present. Interpretive Information: Elevated results may be due to skin or capillary collection-related contamination. Elevated levels of blood lead should be confirmed with second specimen collected venously. Information sources for reference intervals and interpretive comments include the CDC Response to the 2012 Advisory Committee on Childhood Lead Poisoning Prevention Report and the Recommendations for Medical Management of Adult Lead Exposure, Environmental Health Perspectives, 2007. Contact [facility] Department of Health and/or applicable regulatory agency for specific guidance on medical management recommendations. Performed By: #### P B #### [employer] [facility] [address] [place] [phone] Profile Shaper Operator: Miguel Betancourt MD #### APTMUT #### [facility] [employer] [address] [place], [place] [address] Profile Shaper Operator: Nikhil Barragan MD #### AAFPM #### [employer] [address] [place] [phone] Profile Shaper Operator: Miguel Betancourt MD [facility] [employer] [address] [place] [address] Profile Shaper Operator: Nikhil Barragan MD Cytogeneticson 09-06-2022 Cytogenetics (NOTE) Specimen(s) Received: Peripheral blood Clinical Information: Recurrent Loss with Current RESULTS: No. of Chromosomes: 46 No. of Cells Counted: 20 Staining Method: GTG No. of Cells Analyzed: 5 No. and/or Type of Cultures: Blood w/PHA Hypomodal Cells: 0 No. of Karyograms: 6 Hypermodal Cells: 0 Band Level: 550-575 Karyotype: 46,XX Cytogenetic Diagnosis: Normal Female Chromosome Complement Interpretation: This patient is chromosomally normal at the 550-575 band level of resolution. Please note that this analysis does not eliminate the possibility of single gene defects, chromosomal mosaicism involving abnormal cell lines of low frequency, small structural chromosome abnormalities, or uniparental disomy. See microarray analysis report ([id number]). Professional component performed by Raissa Espinal, Ph.D., [facility], [address], [place], [place] (CLIA #: [id number]). Electronically Signed Out Raissa Espinal, Ph.D., F.A.C.M.G. [employer] [facility] DNA DIAGNOSTICS [facility]ICAL [facility] [address] [place] [phone] CHROMOSOME STUDY CONSULTATION REPORT [facility] Comment on above: Performed By: #### P [facility] #### [address] [address] Profile Shaper Operator: Miguel Betancourt MD Cytogenetics (NOTE) Specimen(s) Received: PERIPHERAL BLOOD, MICROARRAY Clinical Information: Recurrent Loss with Current RESULTS: Diagnosis: [facility] Microarray Result: arr[hg19](1-22,X)x2 Normal Female SNP Microarray Result:arr[hg19](1-22 ,X)x2 Normal Female INTERPRETATION: Microarray analysis was performed on this specimen using the Affymetrix DifferentialcanHD array which includes 1.7 million oligonucleotide probes and 750,000 SNP probes. There were no clinically significant abnormalities. Note: This individual's DNA showed one or more copy number variants (CNVs) of no known clinical significance that are not included in this report. See chromosome analysis ([id number]). Test Details Platform Affymetrix DifferentialcanHD NetAffx Build [id number] (hg19) No. Oligo Probes 1.7M No. SNPs 750K Chip ID [id number] Method: Whole-genome array based comparative genomic hybridization (aCGH) analysis is performed using a high density cytogenetic microarray Affymetrix CytoScanHD, designed for the accurate and comprehensive analysis of chromosomal variations in the human genome. CytoScanHD was designed to measure copy number variations, to detect allelic imbalances (i.e. Uniparental disomy), and to genotype the sample by SNP analysis (single nucleotide polymorphism). The CytoScanHD solution is based on the independent analysis of two types of molecular markers: 1.7 million oligonucleotide probes and 750,000 SNP probes. The array covers every region known to be involved in cytogenetic abnormalities, including 255 recognized genetic syndromes, over 980 gene regions of functional significance in human development, the pericentromeric regions and the subtelomeres. If applicable, abnormal finding(s) are further evaluated using FISH probes targeted to the region delineated by oligonucleotide aCGH. The analytic software, Chromosome Analysis Suite ([place]), was developed by [employer] in [place], [place]. This software package enables viewing results data (CYCHP, XNCHP, and OSCHP files) and summarization of chromosomal aberrations across the Genome-Wide Human SNP 6.0 Array. The software allows direct access to external databases such as NCBI, UCSC Genome Browser, Ensembl, ClinVar and OMIM. Disclaimer: This oligonucleotide and SNP aCGH test was developed and its performance determined by [employer]. The microarray detects chromosomal aneuploidy in addition to deletions and duplications (segmental aneusomy) within the genome. As with any genomic aCGH platform, the oligonucleotide aCGH does not detect point mutations, small intragenic deletions and duplications, balanced chromosomal aberrations, including Robertsonian translocations, reciprocal translocations, inversions, balanced insertions, and imbalances in genomic regions that are not represented on the microarray. This test does not detect mosaicism less than approximately 30%. Normal findings do not exclude the diagnosis of a genetic disorder since some genetic abnormalities may not be detected by this test. Clinical implications of some of the reported findings may be unknown at the time of the report. Consultation with a clinical genetic professional is recommended for test interpretation. This test has not been cleared or approved by the U.S. Food and Drug Administration (FDA). The FDA has determined that such clearance or approval is not necessary. This test is used for clinical purposes. It should not be regarded as investigational or for research. [facility] is certified under the Clinical Laboratory Improvement Amendments of 1988 (CLIA-88) as qualified to perform high complexity clinical laboratory testing. The technical component of this analysis was performed at [facility] [employer]; analysis and interpretation are provided at [facility] by a board-certified clinical early morning babysitter with additional training in chromosome microarray analysis. Professional component performed by Raissa Espinal, Ph.D., [facility], [address], [place], [place] (CLIA #: [id number]). Electronically Signed Out Raissa Espinal, Ph.D., .A.C.M.G. [employer] [facility] DNA DIAGNOSTICS CLINICAL CYTOGENETICS LABORATORY [address], [place] [phone] MICROARRAY CONSULTATION REPORT [place] [facility] Normal [facility] Comment on above: Performed By: #### P PPMA #### [facility] [address] [place] [address] [id number] Profile Shaper Operator: Miguel Betancourt MD TAYLA BOX TEST PT SEND OUTo n 07-31-2022 SENT TO REF LAB 07/31/2022 Normal [facility] Comment on above: Performed By: #### C BC #### [facility] [address] [place], [place] [address] Dr. Kavon Cardenas US PREG TVon 07-20-2022 US PREG TV Begin Addendum # 1 Correction to voice-recognition error: Age by LMP: 9 weeks 2 days SERGIO by LMP: Unchanged, 02/14/2023 Original Report EXAMINATION: US PREG TV HISTORY: Missed period COMPARISON: No relevant comparison available. FINDINGS: BABY 1: GESTATIONAL SAC: Present and normal appearing. YOLK SAC: Present and normal appearing. POLE: Present and normal appearing. CARDIAC: Absent. BABY 2: GESTATIONAL SAC: Present and normal appearing. YOLK SAC: Present and normal appearing. POLE: Present and normal appearing. CARDIAC: 178 bpm. UTERUS: Normal size and appearance. OVARIES: Right: Normal. Left: Corpus lutein cyst. CERVIX: 3.2 cm in length and closed. CUL-DE-SAC: Small amount of free fluid, likely physiologic. OTHER: None. AGE BY LMP: 19 weeks 2 days SERGIO BY LMP: 02/14/2023 BABY1: AGE BY US CRL: 7 weeks 4 days SERGIO BY US CRL: 02/26/2023 BABY2: AGE BY US CRL: 8 weeks 5 days SERGIO BY US CRL: 02/18/2023 IMPRESSION: 1. 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 The other measures 8 weeks 5 days with normal heartbeat. Normal [facility] HEPATITIS C VIRUS AB W/ REFL EX QUANTon 07-18-2022 HCV AB <0.1 Normal 0.0-0.[address] [facility] Comment on above: Performed By: #### C BC #### [facility] [address] [place] [address] Dr. Kavon Cardenas Interpretation: Comment Normal [facility] Comment on above: Result Comment: Nega tive Not infected with HCV, unless recent infection is suspected or other evidence exists to indicate HCV infection. Performed By: #### C BC #### [facility] [address] [place] [address] [address] Kavon Cardenas HEP B SURFACE ANTIGEN SCREEN on 07-15-2022 HBsAg Screen Negative Normal Negative [facility] Comment on above: Performed By: #### C BC #### [facility] [address] [place] [address] [address] Kavon Cardenas HIV 1 AND 2 WITH REFLEXon HIV Screen 4th Generation wRfx Non-Reactive Normal Non Reactive [facility] Comment on above: Result Comment: HIV Negative HIV-1/HIV-2 antibodies and HIV-1 p24 antigen were NOT detected. There is no laboratory evidence of HIV infection. Performed By: #### C BC #### [facility] [address] [place] [address] [address] Kavon Cardenas RPR QUANTon 07-15-2022 Rapid Plasma Reagin, Quant Non-Reactive Normal NonRea<1:[address] [facility] Comment on above: Result Comment: Plea se Note: This test does not meet current guidelines for screening and diagnosis of syphilis. This test is intended for following treatment response in patients being treated for syphilis infection. To screen for syphilis infection, a reflex cascade that includes both RPR and a treponema-specific assay should be utilized, such as Treponema pallidum (Syphilis) Screening Cerulean (342892) or Rapid Plasma Reagin (RPR) Test With Reflex to Quantitative RPR and Confirmatory Treponema pallidum Antibodies (654652). Performed By: #### A 1C #### [facility] [address] [place] [address] Dr. Kavon Cardenas RUBELLA AB IGGon 07-15-2022 Rubella Antibodies, IgG 1.77 index Normal Immune >0.99 [facility] [place] Comment on above: Result Comment: Non- immune <0.90 Equivocal 0.90 - 0.99 Immune >0.99 Performed By: #### R UBIGG #### [facility] [address] [place] [address] Dr. Kavon Cardenas CBC AUTO DIFFon 07-14-2022 BASO # 0.1 103/ul Normal 0.0-0.1 [facility] [place] Comment on above: Performed By: #### F VPCR #### [facility] [address] [place] [address] Dr. Kavno Cardenas Basophils/100 WBC (Bld) 0.5 % Normal 0.2-2.0 [facility] [place] Comment on above: Performed By: #### F VPCR #### [facility] [address] [place] [address] Dr. Kavon Cardenas EO # 0.8 103/ul Critically high 0.0-0.7 [facility] Comment on above: Performed By: #### F VPCR #### [facility] [address] [place] [address] Dr. Kavon Cardenas Eosinophils/100 WBC (Bld) 5.7 % Normal 0.9-7.0 [facility] [place] Comment on above: Performed By: #### F VPCR #### [facility] [address] [place] [address] Dr. Kavon Cardenas Erythrocyte distribution width (RBC) [Ratio] 14.2 % Normal 11.0-15.0 [facility] [place] Comment on above: Performed By: #### F VPCR #### [facility] [address] [place] [address] [address] Kavon Cardenas Hematocrit (Bld) [Volume fraction] 39.2 % Normal 36.0-48.0 [facility] [place] Comment on above: Performed By: #### F VPCR #### [facility] [address] [place] [address] Dr. Kavon Cardenas Hemoglobin (Bld) [Mass/Vol] 12.9 g/dL Normal 12.0-16.0 [facility] [place] Comment on above: Performed By: #### F VPCR #### [facility] [address] [place] [address] Dr. Kavon Cardenas IG # 0.09 10e3/ul Critically high 0.00-0.03 [facility] Comment on above: Performed By: #### F VPCR #### [facility] [address] [place] [address] Dr. Kavon Cardenas IG % 0.6 % Critically high 0.0-0.5 [facility] Comment on above: Performed By: #### F VPCR #### [facility] [address] [place] [address] Dr. Kavon Cardenas LYMPH # 2.7 103/ul Normal 1.2-3.8 [facility] [place] Comment on above: Performed By: #### F VPCR #### [facility] [address] [place] [address] Dr. Kavon Cardenas Lymphocytes/100 WBC (Bld) 18.3 % Critically low 20.5-60.0 [facility] [place] Comment on above: Performed By: #### F VPCR #### [facility] [address] [place] [address] Dr. Kavon Cardenas MANUAL DIFF REQ NO Normal [facility] Comment on above: Performed By: #### F VPCR #### [facility] [address] [place] [address] Dr. Kavon Cardenas MCH (RBC) [Entitic mass] 28.2 pg Normal 26.7-34.0 [facility] [place] Comment on above: Performed By: #### F VPCR #### [facility] [address] [place] [address] [address] Kavon Cardenas MCHC (RBC) [Mass/Vol] 32.9 g/dL Normal 29.9-35.2 [facility] [place] Comment on above: Performed By: #### F VPCR #### [facility] [address] [place] [address] Dr. Kavon Cardenas MCV (RBC) [Entitic vol] 85.8 fL Normal 81.0-99.0 [facility] [place] Comment on above: Performed By: #### F VPCR #### [facility] [address] [place] [address] Dr. Kavon Cardenas MONO # 0.7 103/ul Normal 0.3-0.8 [facility] [place] Comment on above: Performed By: #### F VPCR #### [facility] [address] [place] [address] Dr. Kavon Cardenas Monocytes/100 WBC (Bld) 4.9 % Normal 1.7-12.0 [facility] [place] Comment on above: Performed By: #### F VPCR #### [facility] [address] [place] [address] Dr. Kavon Cardenas NEUT # 10.4 103/ul Critically high 1.4-6.5 [facility] Comment on above: Performed By: #### F VPCR #### [facility] [address] [place] [address] Dr. Kavon Cardenas Neutrophils/100 WBC (Bld) 70.0 % Normal 43.0-75.[address] [facility] Comment on above: Performed By: #### F VPCR #### [facility] [address] [place] [address] Dr. Kavon Cardenas Platelet mean volume (Bld) [Entitic vol] 10.1 fL Normal 9.5-13.[address] [facility] Comment on above: Performed By: #### F VPCR #### [facility] [address] [place] [address] Dr. Kavon Cardenas PLT 388 103/ul Normal 150-[address] [facility] Comment on above: Performed By: #### F VPCR #### [facility] [address] [place] [address] Dr. Kavon Cardenas RBC 4.57 106/ul Normal 4.20-5.40 [facility] [place] Comment on above: Performed By: #### F VPCR #### [facility] [address] [place] [address] Dr. Kavon Cardenas WBC 14.8 103/ul Critically high 4.0-11.0 [facility] Comment on above: Performed By: #### F VPCR #### [facility] [address] [place] [address] Dr. Kavon Cardenas CULTURE URINEon 07-14-2022 CULTURE URINE Culture Observations : LIGHT GROWTH OF MIXED GENITAL KYRA. NO POTENTIAL PATHOGENS SEEN. Normal [facility] Comment on above: Performed By: #### C ARDIGM #### [facility] [address] [place] [address] Dr. Kavon Cardenas GLYCOHEMOGLOBIN A1Con 2022 ADA RECOMMENDATION SEE BELOW Normal [facility] Comment on above: Result Comment: ADA RECOMMENDED LIMIT 4.0 - 6.0 ADA THERAPEUTIC TARGET < 7.0 ACTION SUGGESTED > 7.0 Performed By: #### A 1C #### [facility] [address] [place] [address] Dr. Kavon Cardenas Glucose [Mass/Vol] 103 mg/dL Normal [facility] Comment on above: Performed By: #### A 1C #### [facility] [address] [place] [address] Dr. Kavon Cardenas HbA1c (Bld) [Mass fraction] 5.2 % Normal 4.5-6.2 [facility] [place] Comment on above: Performed By: #### A 1C #### [facility] [address] [place] [address] Dr. Kavon Cardenas TYPE AND SCREENon 07-14-2022 TYPE AND SCREEN Negative Normal [facility] Comment on above: Performed By: #### C ARDIGM #### [facility] [address] [place] [address] Dr. Kavon Cardenas PREG QUANT HCGon 06-14-2022 HCG QUANT 1962 mIU/mL Normal [facility] Comment on above: Performed By: #### C BC #### [facility] [address] [place] [address] Dr. Kavon Cardenas HCG RANGE SEE BELOW Normal [facility] Comment on above: Result Comment: 5-50 0.2-1 WEEK 50-500 1-2 WEEKS 100-5,000 2-3 WEEKS 500-10,000 3-4 WEEKS 1,000-50,000 4-5 WEEKS 10,000-100,000 5-6 WEEKS 15,000-200,000 6-8 WEEKS 10,000-100,000 2-3 MONTHS Performed By: #### C BC #### [facility] [address] [place] [address] Dr. Kavon Cardenas CBC AUTO DIFFon 06-12-2022 BASO # 0.1 103/ul Normal 0.0-0.1 [facility] [place] Comment on above: Performed By: #### C BC #### [facility] [address] [place] [address] Dr. Kavon Cardenas Basophils/100 WBC (Bld) 0.6 % Normal 0.2-2.0 [facility] [place] Comment on above: Performed By: #### C BC #### [facility] [address] [place] [address] Dr. Kavon Cardenas EO # 1.1 103/ul Critically high 0.0-0.7 [facility] Comment on above: Performed By: #### C BC #### [facility] [address] [place] [address] Dr. Kavon Cardenas Eosinophils/100 WBC (Bld) 8.1 % Critically high 0.9-7.0 [facility] [place] Comment on above: Performed By: #### C BC #### [facility] [address] [place] [address] Dr. Kavon Cardenas Erythrocyte distribution width (RBC) [Ratio] 13.8 % Normal 11.0-15.0 [facility] [place] Comment on above: Performed By: #### C BC #### [facility] [address] [place] [address] Dr. Kavon Cardenas Hematocrit (Bld) [Volume fraction] 37.4 % Normal 36.0-48.0 [facility] [place] Comment on above: Performed By: #### C BC #### [facility] [address] [place] [address] Dr. Kavon Cardenas Hemoglobin (Bld) [Mass/Vol] 12.4 g/dL Normal 12.0-16.0 [facility] [place] Comment on above: Performed By: #### C BC #### [facility] [address] [place] [address] Dr. Kavon Cardenas IG # 0.06 10e3/ul Critically high 0.00-0.03 [facility] Comment on above: Performed By: #### C BC #### [facility] [address] [place] [address] Dr. Kavon Cardenas IG % 0.4 % Normal 0.0-0.5 [facility] [place] Comment on above: Performed By: #### C BC #### [facility] [address] [place] [address] Dr. Kavon Cardenas LYMPH # 3.4 103/ul Normal 1.2-3.8 [facility] [place] Comment on above: Performed By: #### C BC #### [facility] [address] [place] [address] Dr. Kavon Cardenas Lymphocytes/100 WBC (Bld) 25.4 % Normal 20.5-60.0 [facility] [place] Comment on above: Performed By: #### C BC #### [facility] [address] [place] [address] Dr. Kavon Cardenas MANUAL DIFF REQ NO Normal [facility] Comment on above: Performed By: #### C BC #### [facility] [address] [place] [address] Dr. Kavon Cardenas MCH (RBC) [Entitic mass] 28.5 pg Normal 26.7-34.0 [facility] [place] Comment on above: Performed By: #### C BC #### [facility] [address] [place] [address] Dr. Kavon Cardenas MCHC (RBC) [Mass/Vol] 33.2 g/dL Normal 29.9-35.2 [facility] [place] Comment on above: Performed By: #### C BC #### [facility] [address] [place] [address] Dr. Kavon Cardenas MCV (RBC) [Entitic vol] 86.0 fL Normal 81.0-99.0 [facility] [place] Comment on above: Performed By: #### C BC #### [facility] [address] [place] [address] Dr. Kavon Cardenas MONO # 0.9 103/ul Critically high 0.3-0.8 [facility] Comment on above: Performed By: #### C BC #### [facility] [address] [place] [address] Dr. Kavon Cardenas Monocytes/100 WBC (Bld) 6.5 % Normal 1.7-12.0 [facility] [place] Comment on above: Performed By: #### C BC #### [facility] [address] [place] [address] Dr. Kavon Cardenas NEUT # 7.9 103/ul Critically high 1.4-6.5 [facility] Comment on above: Performed By: #### C BC #### [facility] [address] [place] [address] Dr. Kavon Cardenas Neutrophils/100 WBC (Bld) 59.0 % Normal 43.0-75.0 [facility] [place] Comment on above: Performed By: #### C BC #### [facility] [address] [place] [address] Dr. Kavon Cardenas Platelet mean volume (Bld) [Entitic vol] 9.6 fL Normal 9.5-13.[address] [facility] Comment on above: Performed By: #### C BC #### [facility] [address] [place] [address] Dr. Kavon Cardenas PLT 353 103/ul Normal 150-[address] [facility] Comment on above: Performed By: #### C BC #### [facility] [address] [place] [address] Dr. Kavon Cardenas RBC 4.35 106/ul Normal 4.20-5.40 [facility] Comment on above: Performed By: #### C BC #### [facility] [address] [place] [address] [address] Kavon Cardenas WBC 13.5 103/ul Critically high 4.0-11.0 [facility] Comment on above: Performed By: #### C BC #### [facility] [address] [place] [address] [address] Kavon Cardenas GLYCOHEMOGLOBIN A1Con 2021 ADA RECOMMENDATION SEE BELOW Normal [facility] Comment on above: Result Comment: ADA RECOMMENDED LIMIT 4.0 - 6.0 ADA THERAPEUTIC TARGET < 7.0 ACTION SUGGESTED > 7.0 Performed By: #### B GLYIGM #### [facility] [address] [place] [address] Dr. Kavon Cardenas Glucose [Mass/Vol] 114 mg/dL Normal [facility] Comment on above: Performed By: #### B GLYIGM #### [facility] [address] [place] [address] Dr. Kavon Cardenas HbA1c (Bld) [Mass fraction] 5.6 % Normal 4.5-6.2 [facility] [place] Comment on above: Performed By: #### B GLYIGM #### [facility] [address] [place] [address] Dr. Kavon Cardenas LIPID PROFILEon 06-12-2022 CHOL-HDL RATIO NORM SEE BELOW Normal [facility] Comment on above: Result Comment: 3.3 - 4.4 LOW RISK 4.4 - 7.1 AVERAGE RISK 7.1 - 11.0 MODERATE RISK >11.0 HIGH RISK Performed By: #### F VPCR #### [facility] [address] [place] [address] Dr. Kavon Cardenas Cholesterol [Mass/Vol] 164 mg/dL Normal <=200 [facility] [place] Comment on above: Performed By: #### F VPCR #### [facility] [address] [place] [address] Dr. Kavon Cardenas Cholesterol in HDL [Mass/Vol] 37 mg/dL Critically low 40-60 [facility] [place] Comment on above: Performed By: #### F VPCR #### [facility] [address] [place] [address] [address] Kavon Cardenas Cholesterol in LDL [Mass/Vol] 85.4 mg/dL Normal [facility] [place] Comment on above: Performed By: #### F VPCR #### [facility] [address] [place] [address] [address] Kavon Cardenas Cholesterol.total/Cho lesterol in HDL [Mass ratio] 4.4 {ratio} Normal [facility] [place] Comment on above: Performed By: #### F VPCR #### [facility] [address] [place] [address] [address] Kavon Cardenas HDL NORMAL > or = 60 mg/dl - LO W CARDIOVASCULAR RISK <40 mg/dl - HIGH CARDIOVASCULAR RISK Normal [facility] [place] Comment on above: Performed By: #### F VPCR #### [facility] [address] [place] [address] Dr. Kavon Cardenas LDL CALC NORMAL SEE BELOW Normal [facility] Comment on above: Result Comment: <100 mg/dl OPTIMAL 100 - 129 mg/dl NEAR OR ABOVE OPTIMAL 130 - 159 mg/dl BORDERLINE HIGH 160 - 189 mg/dl HIGH >190 mg/dl VERY HIGH Performed By: #### F VPCR #### [facility] [address] [place] [address] Dr. Kavon Cardenas Triglyceride [Mass/Vol] 208 mg/dL Critically high <=150 [facility] Comment on above: Performed By: #### F VPCR #### [facility] [address] [address] [address] Kavon Cardenas VLDL CALC 41.6 mg/dL Normal [facility] Comment on above: Performed By: #### F VPCR #### [facility] [address] [address] [address] Kavon Cardenas LIVER PROFILEon 06-12-2022 Albumin [Mass/Vol] 3.3 g/dL Critically low 3.4-5.0 Th [facility] Comment on above: Performed By: #### F VPCR #### [facility] [address] [place] [address] Dr. Kavon Cardenas Albumin/Globulin [Mass ratio] 0.8 {ratio} Normal [facility] Comment on above: Performed By: #### F VPCR #### [facility] [address] [place] [address] Dr. Kavon Cardenas ALP [Catalytic activity/Vol] 96 U/L Normal 46-116 [facility] Comment on above: Performed By: #### F VPCR #### [facility] [address] [address] [address] Kavon Cardenas ALT [Catalytic activity/Vol] 19 U/L Normal 14-59 [facility] Comment on above: Performed By: #### F VPCR #### [facility] [address] [address] [address] Kavon Cardenas AST [Catalytic activity/Vol] 12 U/L Critically low 15-37 [facility] Comment on above: Performed By: #### F VPCR #### [facility] [address] [place] [address] Dr. Kavon Cardenas BILI, CONJUGATED 0.1 mg/dL Normal 0.0-0.2 [facility] Comment on above: Performed By: #### F VPCR #### [facility] [address] [place] [address] Dr. Kavon Cardenas Bilirubin [Mass/Vol] 0.3 mg/dL Normal 0.2-1.0 [facility] Comment on above: Performed By: #### F VPCR #### [facility] [address] [place] [address] Dr. Kavon Cardenas Globulin (S) [Mass/Vol] 4.1 g/dL Normal [facility] Comment on above: Performed By: #### F VPCR #### [facility] [address] [place] [address] Dr. Kavon Cardenas Protein [Mass/Vol] 7.4 g/dL Normal 6.4-8.2 [facility] Comment on above: Performed By: #### F VPCR #### [facility] [address] [place] [address] Dr. Kavon Cardenas PREG QUANT HCGon 12-05-2022 HCG QUANT 636 mIU/mL Normal [facility] Comment on above: Performed By: #### A 1C #### [facility] [address] [place] [address] Dr. Kavon Cardenas HCG RANGE SEE BELOW Normal [facility] Comment on above: Result Comment: 5-50 0.2-1 WEEK 50-500 1-2 WEEKS 100-5,000 2-3 WEEKS 500-10,000 3-4 WEEKS 1,000-50,000 4-5 WEEKS 10,000-100,000 5-6 WEEKS 15,000-200,000 6-8 WEEKS 10,000-100,000 2-3 MONTHS Performed By: #### A 1C #### [facility] [address] [place] [address] Dr. Kavon Cardenas PROF CHEM 8 (BAS METB)on Anion gap [Moles/Vol] 11.3 mmol/L Normal [facility] Comment on above: Performed By: #### F VPCR #### [facility] [address] [place] [address] Dr. Kavon Cardenas Calcium [Mass/Vol] 9.2 mg/dL Normal 8.5-10.1 [facility] Comment on above: Performed By: #### F VPCR #### [facility] [address] [place] [address] Dr. Kavon Cardenas Chloride [Moles/Vol] 104 mmol/L Normal 98-107 [facility] Comment on above: Performed By: #### F VPCR #### [facility] [address] [place] [address] Dr. Kavon Cardenas CO2 [Moles/Vol] 25.7 mmol/L Normal 21.0-32.0 [facility] Comment on above: Performed By: #### F VPCR #### [facility] [address] [place] [address] Dr. Kavon Cardenas Creatinine [Mass/Vol] 0.81 mg/dL Normal 0.55-1.02 [facility] Comment on above: Performed By: #### F VPCR #### [facility] [address] [place] [address] Dr. Kavon Cardenas EGFR-AF UZBEK >60 Normal >=60 [facility] Comment on above: Performed By: #### F VPCR #### [facility] [address] [place] [address] Dr. Kavon Cardenas EGFR-NON AF UZBEK >60 Normal >=60 [facility] Comment on above: Performed By: #### F VPCR #### [facility] [address] [address] [address] Kavon Cardenas Glucose [Mass/Vol] 89 mg/dL Normal 74-106 [facility] Comment on above: Performed By: #### F VPCR #### [facility] [address] [place] [address] Dr. Kavon Cardenas Potassium [Moles/Vol] 4.0 mmol/L Normal 3.5-5.1 [facility] Comment on above: Performed By: #### F VPCR #### [facility] [address] [place] [address] Dr. Kavon Cardenas Sodium [Moles/Vol] 137 mmol/L Normal 136-145 [facility] Comment on above: Performed By: #### F VPCR #### [facility] [address] [place] [address] Dr. Kavon Cardenas Urea nitrogen [Mass/Vol] 8.0 mg/dL Normal 7.0-18.0 [facility] Comment on above: Performed By: #### F VPCR #### [facility] [address] [place] [address] Dr. Kavon Cardenas Urea nitrogen/Creatinine [Mass ratio] 9.9 mg/mg Normal [facility] Comment on above: Performed By: #### F VPCR #### [facility] [address] [address] [address] Kavon Cardenas TSHon 06-12-2022 TSH 1.461 uIU/mL Normal 0.358-3.740 [facility] Comment on above: Performed By: #### F VPCR #### [facility] [address] [place] [address] Dr. Kavon Cardenas FACTOR V LEIDEN MUTATION RENAN LYSISon 04-10-2022 Factor V Leiden Comment Normal [facility] Comment on above: Result Comment: Resu lt: c.1601G>A (p.[id number]) - Not Detected . This result is not associated with an increased risk for venous thromboembolism. See Additional Clinical Information and Comments. Additional Clinical Information: Venous thromboembolism is a multifactorial disease influenced by genetic, environmental, and circumstantial risk factors. The c.1601G>A (p. [id number]) variant in the F5 gene, commonly referred to as Factor V Leiden, is a genetic risk factor for venous thromboembolism. Heterozygous carriers of this variant have a 6- to 8-fold increased risk for venous thromboembolism. Individuals homozygous for this variant (ie, with a copy of the variant on each chromosome) have an approximately 80-fold increased risk for venous thromboembolism. Individuals who carry both a c.*97G>A variant in the F2 gene and Factor V Leiden have an approximately 20-fold increased risk for venous thromboembolism. Risks are likely to be even higher in more complex genotype combinations involving the F2 c.*97G>A variant and Factor V Leiden (PMID: 73709068). Additional risk factors include but are not limited to: deficiency of protein C, protein S, or antithrombin III, age, male sex, personal or family history of deep vein thromboembolism, smoking, surgery, prolonged immobilization, malignant neoplasm, tamoxifen treatment, raloxifene treatment, oral contraceptive use, hormone replacement therapy, and . Management of thrombotic risk and thrombotic events should follow established guidelines and fit the clinical circumstance. This result cannot predict the occurrence or recurrence of a thrombotic event. . Comment: Genetic counseling is recommended to discuss the potential clinical implications of positive results, as well as recommendations for testing family members. . Genetic Coordinators are available for health care providers to discuss results at [phone]). . Test Details: Variant Analyzed: c.1601G>A (p. [id number]), referred to as Factor V Leiden . Methods/Limitations: DNA analysis of the F5 gene (NM_000130.5) was performed by PCR amplification followed by restriction enzyme analysis. The diagnostic sensitivity is >99%. Results must be combined with clinical information for the most accurate interpretation. Molecular-based testing is highly accurate, but as in any laboratory test, diagnostic errors may occur. False positive or false negative results may occur for reasons that include genetic variants, blood transfusions, bone marrow transplantation, somatic or tissue-specific mosaicism, mislabeled samples, or erroneous representation of family relationships. . This test was developed and its performance characteristics determined by [facility]. It has not been cleared or approved by the Food and Drug Administration. . References: Bruce S, Itzel WOOD, Renny R, Blas WW, Jorge JH; ACMG Professional Practice and Guidelines Committee. Addendum: [employer] consensus statement on factor V Leiden mutation testing. [employer] Med. 2020Sep 10. doi: 10.1038/m77162-195-94108-q. PMID: 34951080. . Jc GIRALDO. Factor V Leiden Thrombophilia. 1998November 19 [Updated 2017Jul 12]. In: Mendel MP, Epi HH, Jd RA, et al., editors. Alison(R) [Internet]. [place] (ID): [facility]; 1890-5894. Available from: https://www.ncbi.nlm.nih.gov/books/YJT2345/ . Dimitri S, Itzel WOOD, Estevan X, Jono B, Ian EB, Barbara P, Jose CS; [employer] Laboratory Flour Tester Committee. Venous thromboembolism laboratory testing (factor V Leiden and factor II c.*97G>A), 2018 update: a technical standard of the [employer] (ACMG). [employer] Med. 2018 Jun;20(12):4646-1169. doi: 10.1038/i68326-020-4259-j. Epub 2017Apr 12. PMID: 25602190. . Kathi Mercer, PhD, FACMG Liv Joseph, PhD Clint Green, PhD, FACMG Willie Manuel, PhD, FACMG Jesus Bradford, PhD, FACMG Amna Roca, PhD, FACMG Cris Odom, PhD, FACMG Sonia Alejo, PhD, [facility] Performed By: #### F [facility] #### [facility] [address] [place] [address] Dr. Kavon GOMEZ ACOG PANEL 2: 21 to 31on 04-07-2022 . . Normal [facility] Comment on above: Performed By: #### C ARDIGM #### [facility] [address] [place] [address] Dr. Kavon Cardenas Age Gdln ACOG Testing - [facility] Comment on above: Performed By: #### C ARDIGM #### [facility] [address] [place] [address] Dr. Kavon Cardenas DIAGNOSIS: Comment [facility] Comment on above: Result Comment: NEGA TIVE FOR INTRAEPITHELIAL LESION OR MALIGNANCY. Performed By: #### C ARDIGM #### [facility] [address] [place] [address] Dr. Kavon Cardenas Methodology: Comment [facility] Comment on above: Result Comment: This liquid based ThinPrep(R) pap test was screened with the use of an image guided system. Performed By: #### C ARDIGM #### [facility] [address] [place] [address] Dr. Kavon Cardenas Note: Comment [facility] Comment on above: Result Comment: The Pap smear is a screening test designed to aid in the detection of premalignant and malignant conditions of the uterine cervix. It is not a diagnostic procedure and should not be used as the sole means of detecting cervical cancer. Both false-positive and false-negative reports do occur. . Performed By: #### C ARDIGM #### [facility] [address] [place] [address] Dr. Kavon Cardenas Performed by: Comment [facility] Comment on above: Result Comment: Barbara Lim Binder Caser (ASCP) Performed By: #### C ARDIGM #### [facility] [address] [place] [address] Dr. Kavon Cardenas Reflex Criteria: Comment [facility] Comment on above: Result Comment: The HPV DNA reflex criteria were not met with this specimen result therefore, no HPV testing was performed. . Performed By: #### C ARDIGM #### [facility] [address] [place] [address] Dr. Kavon Cardenas Specimen adequacy: Comment Normal [facility] Comment on above: Result Comment: Sati sfactory for evaluation. Endocervical and/or squamous metaplastic cells (endocervical component) are present. Performed By: #### C ARDIGM #### [facility] [address] [address] [address] Kavon Cardenas ANTIPHOSPHOLIPID SYNDROME WI OFILEon 04-06-2022 Anticardiolipin Ab,IgG,Qn <9 Normal 0-14 [facility] Comment on above: Result Comment: Nega tive: <15 Indeterminate: 15 - 20 Low-Med Positive: >20 - 80 High Positive: >80 Performed at: CB Performed By: #### C ARDIGM #### [facility] [address] [address] [address] Kavon Cardenas Anticardiolipin Ab,IgM,Qn <9 Normal 0-12 [facility] Comment on above: Result Comment: Nega tive: <13 Indeterminate: 13 - 20 Low-Med Positive: >20 - 80 High Positive: >80 Performed at: CB Performed By: #### C ARDIGM #### [facility] [address] [address] [address] Kavon Cardenas APS Panel Interpretation Comment Normal [facility] Comment on above: Result Comment: Plea se refer to the Coag Studies Interp Report. Performed at: BN Performed By: #### C ARDIGM #### [facility] [address] [address] [address] Kavon Cardenas aPTT Coag (Bld) [Time] 25.1 s Normal 22.9-30.2 [facility] Comment on above: Result Comment: Perf ormed at: BN Performed By: #### C ARDIGM #### [facility] [address] [address] [address] Kavon Cardenas Beta-2 Glycoprotein I Ab, IgG <9 Normal 0-20 [facility] Comment on above: Result Comment: The reference interval reflects a 3SD or 99th percentile interval, which is thought to represent a potentially clinically significant result in accordance with the International Consensus Statement on the classification criteria for definitive antiphospholipid syndrome (APS). J Thromb Haem 2006;4:295-306. Performed at: BN Performed By: #### C ARDIGM #### [facility] [address] [place] [address] Dr. Kavon Cardenas Beta-2 Glycoprotein I Ab, IgM <9 Normal 0-[address] [facility] Comment on above: Result Comment: The reference interval reflects a 3SD or 99th percentile interval, which is thought to represent a potentially clinically significant result in accordance with the International Consensus Statement on the classification criteria for definitive antiphospholipid syndrome (APS). J Thromb Haem 2006;4:295-306. Performed at: BN Performed By: #### C ARDIGM #### [facility] [address] [place] [address] Dr. Kavon Cardenas dRVVT 42.0 sec Normal 0.0-47.0 [facility] Comment on above: Result Comment: Perf ormed at: BN Performed By: #### C ARDIGM #### [facility] [address] [place] [address] Dr. Kavon Cardenas Hex Phase Phospolipid 4 sec Normal 0-[address] [facility] Comment on above: Result Comment: Perf ormed at: BN Performed By: #### C ARDIGM #### [facility] [address] [place] [address] Dr. Kavon Cardenas INR Coag (PPP) [Relative time] 1.0 {INR} Normal 0.9-1.[address] [facility] Comment on above: Result Comment: Refe rence interval is for non-anticoagulated patients. . Suggested INR therapeutic range for Vitamin K antagonist therapy: Standard Dose (moderate intensity therapeutic range): 2.0 - 3.0 Higher intensity therapeutic range 2.5 - 3.5 Performed at: BN Performed By: #### C ARDIGM #### [facility] [address] [place] [address] Dr. Kavon Cardenas PT Coag (PPP) [Time] 10.1 s Normal 9.1-12.[address] [facility] Comment on above: Result Comment: Perf ormed at: BN Performed By: #### C ARDIGM #### [facility] [address] [place] [address] Dr. Kavon Cardenas Thrombin Time 16.5 sec Normal 0.0-23.0 [facility] Comment on above: Result Comment: Perf ormed at: BN Performed By: #### C ARDIGM #### [facility] [address] [place] [address] Dr. Kavon Cardenas ANTITHROMBIN ACTIVITYon 03-10 Antithrombin Activity 114 % Normal 75-135 [facility] Comment on above: Result Comment: Dire ct Xa inhibitor anticoagulants such as rivaroxaban, apixaban and edoxaban will lead to spuriously elevated antithrombin activity levels possibly masking a deficiency. Performed By: #### C ARDIGM #### [facility] [address] [place] [address] Dr. Kavon Cardenas B-2 GLYCOPROTEIN AB IGGon Beta-2 Glycoprotein I Ab, IgG <9 Normal 0-20 [facility] Comment on above: Result Comment: The reference interval reflects a 3SD or 99th percentile interval, which is thought to represent a potentially clinically significant result in accordance with the International Consensus Statement on the classification criteria for definitive antiphospholipid syndrome (APS). J Thromb Haem 2006;4:295-306. Performed By: #### A 1C #### [facility] [address] [place] [address] Dr. Kavon Cardenas B2-GLYCOPROTEIN 1 AB IGMon 0 04-06-2022 Beta-2 Glycoprotein I Ab, IgM <9 Normal 0-[address] [facility] Comment on above: Result Comment: The reference interval reflects a 3SD or 99th percentile interval, which is thought to represent a potentially clinically significant result in accordance with the International Consensus Statement on the classification criteria for definitive antiphospholipid syndrome (APS). J Thromb Haem 2006;4:295-306. Performed By: #### B GLYIGM #### [facility] [address] [place] [address] Dr. Kavon Cardenas LUPUS ANTICOAGULANT W/REFLEX on 04-06-2022 aPTT Coag (Bld) [Time] 35.9 s Normal 0.0-51.9 [facility] Comment on above: Performed By: #### L UPUSRF #### [facility] [address] [place] [address] Dr. Kavon Cardenas dRVVT 39.5 sec Normal 0.0-47.0 [facility] Comment on above: Performed By: #### L UPUSRF #### [facility] [address] [place] [address] Dr. Kavon Cardenas Interpretation Comment: Normal [facility] Comment on above: Result Comment: No l upus anticoagulant was detected. Performed By: #### L UPUSRF #### [facility] [address] [place] [address] Dr. Kavon Cardenas PROTEIN C FUNC ACTIVITYon Protein C-Functional 137 % Normal 73-180 [facility] Comment on above: Performed By: #### F VPCR #### [facility] [address] [place] [address] Dr. Kavon Cardenas PROTEIN S ANTIGENon 04-06-20 22 Protein S, Free 99 % Normal 61-136 [facility] Comment on above: Performed By: #### A 1C #### [facility] [address] [place] [address] Dr. Kavon Cardenas Protein S, Total 90 % Normal 60-150 [facility] Comment on above: Result Comment: This test was developed and its performance characteristics determined by [facility]. It has not been cleared or approved by the Food and Drug Administration. Performed By: #### A 1C #### [facility] [address] [place] [address] Dr. Kavon Cardenas ANTICARDIOLIPIN AB (SHORTY) IGG on 04-05-2022 Anticardiolipin Ab,IgG,Qn <9 Normal 0-14 [facility] Comment on above: Result Comment: Nega tive: <15 Indeterminate: 15 - 20 Low-Med Positive: >20 - 80 High Positive: >80 Performed By: #### F VPCR #### [facility] [address] [place] [address] Dr. Kavon Cardenas ANTICARDIOLIPIN AB (SHORTY) IGM on 04-05-2022 Anticardiolipin Ab,IgM,Qn <9 Normal 0-12 [facility] Comment on above: Result Comment: Nega tive: <13 Indeterminate: 13 - 20 Low-Med Positive: >20 - 80 High Positive: >80 Performed By: #### C ARDIGM #### [facility] [address] [place] [address] Dr. Kavon Cardenas FREE T4on 04-04-2022 Free T4 [Mass/Vol] 0.91 ng/dL Normal 0.76-1.46 [facility] Comment on above: Performed By: #### C BC #### [facility] [address] [place] [address] Dr. Kavon Cardenas GLYCOHEMOGLOBIN A1Con 2021 ADA RECOMMENDATION SEE BELOW Normal [facility] Comment on above: Result Comment: ADA RECOMMENDED LIMIT 4.0 - 6.0 ADA THERAPEUTIC TARGET < 7.0 ACTION SUGGESTED > 7.0 Performed By: #### A 1C #### [facility] [address] [place] [address] Dr. Kavon Cardenas Glucose [Mass/Vol] 108 mg/dL Normal [facility] Comment on above: Performed By: #### A 1C #### [facility] [address] [place] [address] Dr. Kavon Cardenas HbA1c (Bld) [Mass fraction] 5.4 % Normal 4.5-6.2 [facility] Comment on above: Performed By: #### A 1C #### [facility] [address] [place] [address] Dr. Kavon Cardenas TSHon 04-04-2022 TSH 1.208 uIU/mL Normal 0.358-3.740 [facility] Comment on above: Performed By: #### A 1C #### [facility] [address] [place] [address] Dr. Kavon Cardenas Encounters Encounter Date Encounter Type Care Provider Facility Start: 11-14-2022 End: 11-15-[address] CHEMA HOU . Facility: Start: 11-01-2022 End: 11-02-2022 ambulatory MARGIE BROWN . Facility:[facility] Start: 10-25-2022 End: 10-26-2022 ambulatory MARGIE BROWN . Facility:[facility] Start: 10-23-2022 End: 10-23-[address] DYLON CHAPMAN . Facility:[facility] Start: 10-13-[address] CHEMA HOU . Facili ty:[facility] Start: 10-11-2022 End: 10-12-2022 ambulatory KASEY Gaona [facility] Start: 10-11-2022 End: 10-11-2022 Subsequent hospital visit by physician Kasey uFnk MD Work Phone: [facility] Start: 09-19-2022 End: 09-19-[address] CHEMA HOU . Facility:[facility] Start: 09-17-2022 End: 09-17-2022 ambulatory ROBERT GOLDBERG . Facility:[facility] Start: 09-11-2022 End: 09-12-[address] DOCTOR CLIFTON Facility:[facility] Start: 09-06-2022 End: 09-07-[address] [facility] Candel[facility] Start: 09-06-2022 End: 09-06-2022 Subsequent hospital visit by physician Kasey Funk MD Work Phone: [facility] Start: 07-31-2022 End: 08-01-[address] CHEMA HOU . Facility:[facility] Start: 07-14-2022 End: 07-14-[address] CHEMA HOU . Facility:[facility] Start: 07-14-2022 End: 07-15-[address] CHEMA HOU . Facility:[facility] Start: 06-14-2022 End: 07-09-[address] CHEMA HOU . Facility:[facility] Start: 06-13-2022 Encounter for genera l adult medical examination without abnormal findings DR GRICELDA IBARRA [facility] Start: 06-12-2022 End: 06-13-[address] GRICELDA IBARRA Facility:[facility] Start: 06-12-2022 End: 06-13-2022 Encounter for general adult medical examination without abnormal findings DR GRICELDA IBARRA Facility:[facility] Start: 04-04-2022 End: 04-05-[address] CHEMA HOU . Facility:[facility] Start: 03-30-2022 End: 03-30-[address] CHEMA HOU . Facility: Start: 09-03-2016 End: 09-03-2016 Emergency department patient visit Kenia Sapp Facility:[facility] Procedures Date Procedure Procedure Detail Performing Clinician Start: 10-11-2022 Blood count reticulo cyte automated Iker Nelson MD Work Phone: Plan of Treatment Date Care Activity Detail Author Start: 02-06-2023 Influenza vaccination Flu vacc ine (Season Ended) [facility] Start: 10-25-2022 End: 10-25-2022 Patient encounter procedure 10/25/2022 Routine Perinatology [facility] Start: 09-27-2022 End: 09-27-2022 Patient encounter procedure 09/27/2022 Routine Perinatology [facility] Start: 02-06-2022 Influenza vaccination Flu vaccine (# 1) [facility] Start: 01-27-2022 Hemoglobin A1c measurement A1C test (Diabetic or Prediabetic) [facility] Start: 2013 Screening for malign ant neoplasm of cervix Pap smear [facility] Start: 12-05-2011 DTaP/Tdap/Td vaccine (1 - Tdap) DTaP/Tdap/Td vaccine (1 - Tdap) [facility] Start: 2010 Hepatitis C screening Hepatitis C sc reen [facility] Start: 12-05-2007 HIV screening HIV screen [facility] Start: 2004 Depression Screen Depression Screen [facility] Start: 1993 Varicella vaccine (1 of 2 - 2-dose childhood series) Varicella vaccine (1 of 2 - 2-dose childhood series) [facility] Start: 06-06-1993 COVID-19 Vaccine (#1) COVID-19 Vacci ne (#1) [facility] End: 09-06-2022 Alpha Fetoprotein, Maternal [facility] Work Phone: Comment on above: Once for 1 Occurrenc es starting 09/06/2022 until 09/06/2022 End: 09-06-2022 Lead, Blood [facility] Work Phone: Comment on above: Once for 1 Occurrenc es starting 09/06/2022 until 09/06/2022 End: 10-11-2022 Lead, Blood [facility] Phone: Comment on above: Once for 1 Occurrenc es starting 10/11/2022 until 10/11/2022 End: 10-11-2022 Path Review, Smear [employer] [employer] Phone: Comment on above: Once for 1 Occurrenc es starting 10/11/2022 until 10/11/2022 End: 09-06-2022 Prothrombin Gene Mutation [facility] Phone: Comment on above: Once for 1 Occurrenc es starting 09/06/2022 until 09/06/2022 End: 09-06-2022 Signature Microarray [facility] Phone: Comment on above: Once for 1 Occurrenc es starting 09/06/2022 until 09/06/2022 Payers Date Payer Category Payer Medicaid [id number] 2022 Medicaid [id number] 1992 Unknown [id number] 2.16.84 0.1.617533.3.579.2.59 1992 Unknown [id number] 2.16.84 0.1.655596.3.579.2.59 1992 Unknown [id number] 2.16.84 0.1.637059.3.579.2.59 1992 Unknown [id number] 2.16.84 0.1.353617.3.579.2.593 1992 Unknown [id number] 2.16.84 0.1.021090.3.579.2.59 1992 Unknown [id number] 2.16.84 0.1.695332.3.579.2.593 1992 Unknown [id number] 2.16.84 0.1.160176.3.579.2.593 1992 Unknown [id number] 2.16.84 0.1.545742.3.579.2.593 1992 Unknown [id number] 2.16.84 0.1.336595.3.579.2.593 1992 Unknown [id number] 2.16.84 0.1.684713.3.579.2.593 1992 Unknown [id number] 2.16.84 0.1.752406.3.579.2.593 1992 Unknown [id number] 2.16.84 0.1.011804.3.579.2.593 1992 Unknown [id number] 2.16.84 0.1.954683.3.579.2.593 1992 Unknown [id number] 2.16.84 0.1.296010.3.579.2.593 1992 Unknown [id number] 2.16.84 0.1.987999.3.579.2.593 1992 Unknown [id number] 2.16. 840.1.949188.3.579.2.175 1992 Unknown [id number] 2.16. 840.1.726159.3.579.2.175 1959 Private Health Insurance [id number] Self-pay Unknown [id number] 2.16.84 0.1.131062.3.579.2.593 Social History Date Type Detail Facility Start: 09-06-2022 Tobacco smoking status PRIS Never smoked tobacco [facility] Phone: Start: 09-06-2022 Tobacco use and exposure Smokeless tobacco non-user [facility] Phone: Start: 09-06-2022 End: 10-11-2022 Alcohol intake Lifetime non-drinker (finding) [facility] [employer] Phone: Start: 05-24-2022 MUKESH Suazo [employer] Phone: Start: 1990 Sex Assigned At Not on file [facility] [employer] Phone: NEGATED: Highlighted rowStart: NINF History of tobacco use Passive smoker [facility] [employer] Phone: Summary Purpose Family History No Family History Records FoundNo Family History Records FoundNo Family History Records Found Advance Directives No Advanced Directives Records FoundNo Advanced Directives Records FoundNo Advanced Directives Records Found Additional Source Comments INFORMATION SOURCE (unrecogn ized section and content) DATE CREATED AUTHOR 01/02/2018 [place] [facility] DATE CREATED AUTHOR AUTHOR'S ORGANIZ ATION 11/17/2022 [facility] DATE CREATED AUTHOR AUTHOR'S ORGANIZ ATION 01/24/2023 [facility] Care Teams (unrecognized sec tion and content) 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 This clinical summary was aggregated from multiple sources. Caution should be exercised in using it in the provision of clinical care. This summary normalizes information from multiple sources, and as a consequence, information in this document may materially change the coding, format and clinical context of patient data. In addition, data may be omitted in some cases. CLINICAL DECISIONS SHOULD BE BASED ON THE PRIMARY CLINICAL RECORDS. [facility] [employer] [facility]. provides no warranty or guarantee of the accuracy or completeness of information in this document.
[2023-10-02 13:12] LABS: Age Gdln ACOG Testing Note (.); HPV Aptima Negative (Negative); IGP, Aptima HPV, rfx 16/18,45 Note (.)
== END 2023-09-26 21:25 | disposition home or self-care (01) ==
LOC: LAB 21:24
PROVIDERS: Visit Provider Obstetrics & Gynecology
DX: Z01.419 Encounter for gynecological examination (general) (routine) without abnormal findings (principal)
CPT/HCPCS: 87624; G0145

== ENCOUNTER 2023-12-04 15:45 | Outpatient (RCR) | payer MEDICAID, SELFPAY ==
[2023-12-04 16:18] LABS: HCG Quantitative <1 mIU/mL
[2023-12-06 08:54] LABS: HCG Quantitative <1 mIU/mL
== END 2023-12-07 08:47 | disposition home or self-care (01) ==
LOC: LAB 15:45
PROVIDERS: Visit Provider Obstetrics & Gynecology
DX: N92.6 Irregular menstruation, unspecified (principal)
CPT/HCPCS: 36415; 84702

== ENCOUNTER 2024-09-29 15:05 | Outpatient (REF) | payer MEDICAID, SELFPAY | END 2024-09-29 15:06 | disposition home or self-care (01) | LOC: LAB 15:05 | PROVIDERS: Visit Provider Obstetrics & Gynecology | DX: Z01.419 Encounter for gynecological examination (general) (routine) without abnormal findings (principal) | CPT/HCPCS: 87624; 88175 ==

== ENCOUNTER 2024-11-19 16:05 | Outpatient (OUT) | payer MEDICAID, SELFPAY ==
[2024-11-19 17:11] LABS: HCG Quantitative <1 mIU/mL
== END 2024-11-19 16:06 | disposition home or self-care (01) ==
PROVIDERS: PCP Family Medicine; Visit Provider Obstetrics & Gynecology
DX: Z32.00 Encounter for pregnancy test, result unknown (principal)
CPT/HCPCS: 36415; 84702

== ENCOUNTER 2024-11-21 15:28 | Outpatient (RCR) | payer MEDICAID, SELFPAY ==
[2024-11-21 16:11] LABS: HCG Quantitative <1 mIU/mL
== END 2024-12-08 10:52 | disposition home or self-care (01) ==
LOC: LAB 15:28
PROVIDERS: PCP Family Medicine; Visit Provider Obstetrics & Gynecology
DX: Z32.00 Encounter for pregnancy test, result unknown (principal)
CPT/HCPCS: 36415; 84702

== ENCOUNTER 2025-04-16 15:54 | Outpatient (OUT) | payer MEDICAID, SELFPAY ==
--- OUTSIDE RECORDS SUMMARY | 2025-04-16 16:00 | XMS_ITS | CCD ---
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 Name Role Phone Jimmy Hay MD Primary Care Provider FRED, DR MIKEL Head Primary Care Unavailable PADMINI ., DR BEAR Attending Unavailable PADMINI ., DR BEAR Admitting Unavailable PADMINI ., DR BEAR Consulting Unavailable KARASIK ., DR OSBORNE Admitting Unavailabl e PADMINI ., DR BEAR Consulting Unavailable REQUEST, DR NONE LISTED Primary Care Unavaila ble KARASIK ., DR OSBORNE Attending Unavailabl e PADMINI ., DR BEAR Consulting Unavailable PADMINI ., DR BEAR Attending Unavailable PADMINI ., DR BEAR Admitting Unavailable REQUEST, NONE LISTED Primary Care Unavaila ble PADMINI ., DR BEAR Consulting Unavailable PADMINI ., DR BEAR Attending Unavailable PADMINI ., DR BEAR Admitting Unavailable REQUEST, DR NONE LISTED Primary Care Unavaila ble ZIEBER, DR EDDI Fong Consulting Unavailable PADMINI ., DR BEAR Admitting Unavailable PADMINI ., DR BEAR Attending Unavailable REQUEST, DR NONE LISTED Primary Care Unavaila ble ASHLYN ., ROBERT Attending Unavailable ASHLYN ., ROBERT Admitting Unavailable ASHLYN ., ROBERT Consulting Unavailable REQUEST, NONE LISTED Primary Care Unavaila ble LONG, JORDAN Consulting Unavailable ALENA ELY Consulting Unavailable PADMINI ., DR BAER Consulting Unavailable PADMINI ., DR BEAR Attending Unavailable REQUEST, DR NONE LISTED Primary Care Unavaila ble PADMINI ., DR BEAR Admitting Unavailable PADMINI ., DR BEAR Consulting Unavailable PADMINI ., DR BEAR Attending Unavailable PADMINI ., DR BEAR Admitting Unavailable REQUEST, DR NONE LISTED Primary Care Unavaila ble PADMINI ., DR BEAR Admitting Unavailable PADMINI ., DR BEAR Consulting Unavailable PADMINI ., DR BEAR Attending Unavailable REQUEST, DR NONE LISTED Primary Care Unavaila ble PADMINI ., DR BEAR Consulting Unavailable PADMINI ., DR BEAR Attending Unavailable PADMINI ., DR BEAR Admitting Unavailable REQUEST, DR NONE LISTED Primary Care Unavaila ble KEVIN ., MARGIE Consulting Unavailable REQUEST, DR NONE LISTED Primary Care Unavaila ble KEVIN ., MARGIE Attending Unavailable KEVIN ., MARGIE Admitting Unavailable PADMINI ., DR BEAR Admitting Unavailable PADMINI ., DR BEAR Consulting Unavailable PADMINI ., DR BEAR Attending Unavailable PADMINI ., DR BEAR Admitting Unavailable PADMINI ., DR BEAR Consulting Unavailable PADMINI ., DR BEAR Attending Unavailable REQUEST, DR NONE LISTED Primary Care Unavaila ble MISC, DR NINO Attending Unavailable MISC, DR NINO Admitting Unavailable REQUEST, NONE LISTED Primary Care Unavaila ble MISC, DR NINO Consulting Unavailable PADMINI ., DR BEAR Consulting Unavailable KEVIN ., MARGIE Admitting Unavailable NADERER, DR MIKEL Head Primary Care Unavailable KEVIN ., MARGIE Consulting Unavailable KEVIN ., MARGIE Attending Unavailable NADERER, DR MIKEL Head Consulting Unavailable NADERER, DR MIKEL Head Attending Unavailable NADERER, DR MIKEL Head Admitting Unavailable NADERER, DR MIKEL Head Primary Care Unavailable JIMMY HAY Primary Care Unavailable NICHELLE, JONO C Referring Unavailable HYJIMMY WINCHESTER Primary Care Unavailable NICHELLE JONO C Referring Unavailable Naderer Mikel PACK Primary Care Provider Jimmy Hay MD Primary Care Provider Ynes Trinidad Attending Unavailable Kenny Matute Attending Unavailable Kenny Matute Admitting Unavailable MIKEL IBARRA Primary Care Physician Rere LOW Attending Unavailable Kenny Matute Admitting Unavailable MIKEL IBARRA Attending Unavailable DAVID WASHINGTON Attending Unavailable NADERER, MIKEL Attending Unavailable NADERER, MIKEL Attending Unavailable NADEREAjit, MIKEL Attending Unavailable PADMINIDAVID Astorga Attending Unavailable Cesar Mallory Attending Unavailab le Cesar Mallory Admitting Unavailab le Allergies Allergy Classification Reported Allergen(s) Allergy Type Date of Onset Reaction(s) Facility (7 sources) cefdinir Drug Allergy 10-30-2024 Itching [facility] Medications Current Medications Medication Drug Class(es) Dates Sig (Normalized) Sig (Original) [id number] 200 actuat albuterol 0.09 mg/actuat metered dose inhaler (20 sources) beta2-Adrenergic Agonist Start: 06-30-2024 End: 10-30-2024 take 2 puff(s) by inhalation every four hours for wheezing albuterol HFA 90 mcg/act inhaler Indications: Mild asthma without complication, unspecified whether persistent (HCC) Inhale 2 puffs every 4 (four) hours if needed for wheezing 18 g 3 10/30/2024 Active Start: 05-09-2024 2.5 mg, Nebuli zation, ONCE, 1 dose, On Sun05/09/24 at 2218, Initiate RT Bronchodilator Protocol: No Start: 09-18-2022 albuterol (PRO VENTIL) (2.5 MG/3ML) 0.083% nebulizer solution 09/18/2022 Active Start: 09-18-2022 albuterol (PRO VENTIL) (2.5 MG/3ML) 0.083% nebulizer solution inhale contents of 1 vial ( 3 milliliters ) in nebulizer by mouth... (REFER TO PRESCRIPTION NOTES). 0 09/18/2022 Active Start: 07-31-2022 albuterol sulf ate HFA (PROVENTIL;VENTOLIN;PROAIR) 108 (90 Base) MCG/ACT inhaler 07/31/2022 Active Start: 07-31-2022 take 2 puff(s) by mo uth every four hours albuterol sulfate HFA (PROVENTIL;VENTOLIN;PROAIR) 108 (90 Base) MCG/ACT inhaler inhale 2 puffs by mouth and INTO THE LUNGS every 4 hours if needed 0 07/31/2022 Active take 2 puff(s) by in halation every four hours for wheezing albuterol HFA 90 mcg/act inhaler Inhale 2 puffs every 4 (four) hours if needed for wheezing. Active Aspirin (2 sources) Platelet Aggregation Inhibitor, Nonsteroidal Anti-inflammatory Drug BABY ASPIRIN PO Take by mouth Active BABY ASPIRIN PO Take by mouth 0 Active 60 actuat budesonide 0.09 mg/actuat dry powder inhaler (13 sources) Corticosteroid Start: 08-04-2024 End: 10-30-2024 take 2 puff(s) by mouth in the morning budesonide (Pulmicort Flexhaler) 90 MCG/ACT inhaler Indications: Mild persistent asthma without complication (HCC) Inhale 2 puffs in the morning and 2 puffs before bedtime. Rinse mouth with water after use to reduce aftertaste and incidence of candidiasis. Do not swallow. 1 each 3 10/30/2024 Active 60 actuat budesonide 0.16 mg/actuat / formoterol fumarate 0.0045 mg/actuat metered dose inhaler (9 sources) Corticosteroid, beta2-Adrenergic Agonist Start: 10-23-2022 End: 08-04-2024 Symbicort 160-4.5 MCG/ACT inhaler 10/23/2022 08/04/2024 Discontinued fexofenadine hydrochloride 180 mg oral tablet (19 sources) Histamine-1 Receptor Antagonist Start: 11-16-2023 End: 10-30-2024 take 1 tablet by mouth once daily as needed fexofenadine (Megan) 180 MG tablet Indications: Urticaria due to cold and heat Take 1 tablet (180 mg) by mouth Daily as needed (Allergies) 30 tablet 5 10/30/2024 Active 60 actuat fluticasone propionate 0.25 mg/actuat / salmeterol 0.05 mg/actuat dry powder inhaler (2 sources) Corticosteroid, beta2-Adrenergic Agonist Start: 08-21-2022 take 1 puff(s) by mouth twice daily ADVAIR DISKUS 250-50 MCG/ACT AEPB diskus inhaler inhale 1 puff by mouth and INTO THE LUNGS twice a day 0 08/21/2022 Active montelukast 10 mg oral tablet (19 sources) Leukotriene Receptor Antagonist Start: 11-16-2023 End: 10-30-2024 take 1 tablet by mouth once daily montelukast (Singulair) 10 MG tablet Indications: Urticaria due to cold and heat Take 1 tablet (10 mg) by mouth Daily 30 tablet 5 10/30/2024 Active predniSONE 20 mg oral tablet (1 source) Start: 05-10-2024 End: 05-15-2024 take 1 tablet by mouth twice daily predniSONE (DELTASONE) 20 MG tablet Take 1 tablet by mouth 2 times daily for 5 days 10 tablet 05/10/2024 05/15/2024 Active BK-Wdl-GL-[place]-3 ( GUMMIES/DHA & FA) 0.4-32.5 MG CHEW (3 sources) RK-Ezv-TQ-[place]-3 ( GUMMIES/DHA & FA) 0.4-32.5 MG CHEW Gummies/DHA & FA Active MV-Min- FA-Newport-3 ( GUMMIES/DHA & FA) 0.4-32.5 MG CHEW Gummies/DHA & FA 0 Active Progesterone (2 sources) Progesterone Progesterone [address] 200 mg vaginally 2 times daily 0 Active sertraline 50 mg oral tablet (2 sources) Serotonin Reuptake Inhibitor take 1 tablet by mouth once daily sertraline (ZOLOFT) 50 MG tablet Take 50 mg by mouth daily 0 Active Completed/Discontinued Medications Medication Drug Class(es) Dates Sig (Normalized) Sig (Original) albuterol 0.833 mg/ml / ipratropium bromide 0.167 mg/ml inhalation solution (1 source) Anticholinergic, beta2-Adrenergic Agonist Start: 05-09-2024 End: 05-09-2024 take 1 dose by inhalation once 1 Dose, Inhalation, ONCE, 1 dose, On Sun05/09/24 at 2128, Initiate RT Bronchodilator Protocol: No, STAT calcium chloride 0.0014 meq/ml / potassium chloride 0.004 meq/ml / sodium chloride 0.103 meq/ml / sodium lactate 0.028 meq/ml injectable solution (1 source) Start: 05-09-2024 End: 05-10-2024 1,000 mL, IntraVENous, at 495.9 mL/hr, Administer over 121 Minutes, ONCE, On Sun05/09/24 at 2249, For 1 dose, STAT citalopram 20 mg oral tablet (15 sources) Serotonin Reuptake Inhibitor Start: 08-04-2024 End: 10-30-2024 take 1 tablet by mouth once daily citalopram (CeleXA) 20 MG tablet Indications: Major depressive disorder, recurrent episode, moderate (CMS/HCC) Take 1 tablet (20 mg) by mouth Daily 30 tablet 3 08/04/2024 10/30/2024 Discontinued Start: 12-05-2023 End: 08-04-2024 take 1 tablet by mouth once daily citalopram (CeleXA) 40 MG tablet Indications: Major depressive disorder, recurrent episode, moderate (CMS/HCC) Take 1 tablet (40 mg) by mouth Daily 30 tablet 5 12/05/2023 08/04/2024 Discontinued (Reorder) Start: 01-02-2023 take 1 tablet by allen th once daily in the morning citalopram (CELEXA) 20 MG tablet Take 1 tablet by mouth every morning 01/02/2023 Active famotidine 40 mg oral tablet (12 sources) Histamine-2 Receptor Antagonist Start: 11-16-2023 End: 10-30-2024 take 1 tablet by mouth once daily famotidine (Pepcid) 40 MG tablet Indications: Urticaria due to cold and heat Take 1 tablet (40 mg) by mouth Daily 30 tablet 5 11/16/2023 10/30/2024 Discontinued guaiFENesin 20 mg/ml oral solution (1 source) Start: 05-09-2024 End: 05-09-2024 take 1 dose by mouth once 400 mg, Oral, ONCE, 1 dose, On Sun05/09/24 at 2226 50 ml magnesium sulfate 40 mg/ml injection (1 source) Start: 05-09-2024 End: 05-09-2024 2,000 mg, IntraVENous, at 50 mL/hr, Administer over 1 Hours, ONCE, On Sun05/09/24 at 2128, For 1 dose, Recommended infusion rate not to exceed 1,000 mg (milligrams) per hour. methylPREDNISolone 125 mg injection (1 source) Corticosteroid Start: 05-09-2024 End: 05-09-2024 125 mg, IntraVENous, ONCE, On Sun05/09/24 at 2128, For 1 dose 2 ml ondansetron 2 mg/ml injection (4 sources) Serotonin-3 Receptor Antagonist Start: 05-09-2024 End: 05-09-2024 4 mg, IntraVENous, ONCE, 1 dose, On Sun05/09/24 at 2340, STAT Start: 08-26-2022 take 1 tablet by allen th every four to six hours ondansetron (ZOFRAN) 4 MG tablet take 1 tablet by mouth every 4 to 6 hours if needed 0 08/26/2022 Active OXcarbazepine 150 mg oral tablet (16 sources) Anti-epileptic Agent Start: 08-04-2024 End: 10-30-2024 take 1 tablet by mouth in the morning OXcarbazepine (Trileptal) 150 MG tablet Indications: Major depressive disorder, recurrent episode, moderate (CMS/HCC) Take 1 tablet (150 mg) by mouth in the morning and 1 tablet (150 mg) before bedtime. 60 tablet 5 08/04/2024 10/30/2024 Discontinued Start: 04-30-2024 End: 08-04-2024 take 1 tablet by mouth in the morning OXcarbazepine (Trileptal) 300 MG tablet Indications: Major depressive disorder, recurrent episode, moderate (CMS/HCC) Take 1 tablet (300 mg) by mouth in the morning and 1 tablet (300 mg) before bedtime. 60 tablet 5 04/30/2024 08/04/2024 Discontinued (Reorder) Start: 02-15-2024 End: 04-30-2024 take 1 tablet by mouth in the morning OXcarbazepine (Trileptal) 150 MG tablet Indications: Major depressive disorder, recurrent episode, moderate (CMS/HCC) Take 1 tablet (150 mg) by mouth in the morning and 1 tablet (150 mg) before bedtime. 60 tablet 3 02/15/2024 04/30/2024 Discontinued (Reorder) phentermine hydrochloride 37.5 mg oral tablet (11 sources) Sympathomimetic Amine Anorectic Start: 08-04-2024 End: 10-30-2024 take 36-36.9 tablets by mouth before mealtime phentermine (Adipex-P) 37.5 MG tablet Indications: Class 2 obesity due to excess calories without serious comorbidity with body mass index (BMI) of 36.0 to 36.9 in adult Take 1 tablet (37.5 mg) by mouth in the morning. Take before meals. 30 tablet 08/04/2024 10/30/2024 Discontinued Start: 02-15-2024 End: 04-30-2024 take 1 tablet by mouth once daily in the morning phentermine (Adipex-P) 37.5 MG tablet Indications: Obesity (BMI 30-39.9) TAKE 1 TABLET BY MOUTH EVERY MORNING BEFORE FIRST MEAL OF THE DAY 30 tablet 03/12/2024 04/11/2024 Active traZODone hydrochloride 50 mg oral tablet (14 sources) Serotonin Reuptake Inhibitor Start: 02-15-2024 End: 10-30-2024 take 1 tablet by mouth at bedtime traZODone (Desyrel) 50 MG tablet Indications: Primary insomnia Take 1 tablet (50 mg) by mouth at bedtime 30 tablet 3 08/04/2024 10/30/2024 Discontinued triamcinolone acetonide 5 mg/ml topical cream (12 sources) Corticosteroid Start: 07-14-2024 End: 10-30-2024 triamcinolone (Kenalog) 0.5 % cream Indications: Urticaria due to cold and heat Apply topically 3 (three) times a day 60 g 2 07/14/2024 10/30/2024 Discontinued Start: 11-16-2023 triamcinolone (Kenalog) 0.5 % cream Indications: Urticaria due to cold and heat Apply topically 3 (three) times a day 60 g 2 11/16/2023 Active Problems Active Problems Problem Classification Problem Date Documented Date Episodic/Chronic Abdominal pain (1 source) Pelvic and perineal pain; Translations: [PELVIC AND PERINEAL PAIN] Onset: 10-26-2022 Episodic Anxiety disorders (20 sources) Generalized anxiety disorder; Translations: [Generalized anxiety disorder] Onset: 11-16-2023 11-16-2023 Chronic Asthma (20 sources) Unspecified asthma with (acute) exacerbation; Translations: [Uncomplicated asthma] Onset: 09-19-2022 01-05-2023 Chronic Bacterial infection; unspecified site (1 source) Bacteremia; Translations: [Bacteremia] Onset: 10-13-2024 Episodic Contraceptive and procreative management (4 sources) Patient encounter status; Translations: [Encounter for other procreative management] 02-03-2025 Episodic Diabetes mellitus without complication (8 sources) Other abnormal glucose; Translations: [Impaired glucose tolerance (oral)] Onset: 11-01-2022 Episodic Diseases of white blood cells (1 source) Leukocytosis; Translations: [Elevated white blood cell count, unspecified] Onset: 10-12-2024 Chronic Female infertility (4 sources) Female infertility, unspecified; Translations: [FEMALE INFERTILITY UNSPECIFIED] Onset: 04-04-2022 Chronic Immunizations and screening for infectious disease (2 sources) Encounter for screening for human papillomavirus (HPV); Translations: [Contact with and (suspected) exposure to infections with a predominantly sexual mode of transmission] Onset: 09-25-2022 Episodic Menstrual disorders (5 sources) Irregular menstruation, unspecified; Translations: [IRREGULAR MENSTRUATION UNSPECIFIED] Onset: 06-13-2022 Chronic Miscellaneous mental health disorders (20 sources) Primary insomnia; Translations: [Primary insomnia] Onset: 10-02-2023 10-02-2023 Chronic Mood disorders (20 sources) Moderate recurrent major depression; Translations: [Major depressive disorder, recurrent, moderate] Onset: 11-16-2023 11-16-2023 Chronic Nausea and vomiting (1 source) Nausea and vomiting; Translations: [Nausea with vomiting, unspecified] Onset: 10-12-2024 Episodic Nonspecific chest pain (3 sources) Chest pain, unspecified; Translations: [CHEST PAIN UNSPECIFIED] Onset: 09-17-2022 Episodic Other aftercare (1 source) 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; Translations: [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 CURRENT USE OF ASPIRIN] Onset: 09-19-2022 Episodic Other aftercare (1 source) Other longterm (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; Translations: [OTH 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 OPERATOR CURRENT DRUG THERAPY] Onset: 09-19-2022 Episodic Other [...] NONINFLAMMATORY D/O VAGINA] Onset: 09-25-2022 Episodic Other nutritional; endocrine; and metabolic disorders (4 sources) Body mass index 30+ - obesity; Translations: [Obesity, unspecified] Onset: 11-16-2023 02-15-2024 Chronic Other nutritional; endocrine; and metabolic disorders (18 sources) Obesity caused by energy imbalance; Translations: [Class 2 obesity due to excess calories without serious comorbidity with body mass index (BMI) of 35.0 to 35.9 in adult] Onset: 11-16-2023 04-30-2024 Chronic Other nutritional; endocrine; and metabolic disorders (1 source) Obesity; Translations: [Obesity, unspecified] Onset: 10-14-2024 Chronic Other screening for suspected conditions (not mental disorders or infectious disease) (4 sources) Encounter for screening for malignant neoplasm of cervix; Translations: [ENC SCREENING MALIG NEOPLASM CERV] Onset: 09-19-2022 Episodic Residual codes; unclassified (1 [...] HX OTHER SPEC CONDITIONS] Onset: 09-12-2022 Episodic Septicemia (except in labor) (2 sources) Sepsis; Translations: [Sepsis, unspecified organism] Onset: 10-12-2024 Episodic Unclassified (1 source) CONTACT W/AND (SUSP) EXPOS COVID-19; Translations: [CONTACT W/AND (SUSP) EXPOS COVID-19] Onset: 09-19-2022 Unclassified (1 source) None (qualifier value) 04-20-2012 Past or Other Problems Problem Classification Problem Date Documented Da te Episodic/Chronic Allergic reactions (19 sources) Urticaria due to cold and heat; Translations: [Urticaria due to cold and heat] Onset: 11-16-2023 11-16-2023 Episodic Other complications of (2 sources) Supervision of other high risk pregnancies, second trimester; Translations: [Supervision of other high risk pregnancies, second trimester] Onset: 10-11-2022 Episodic Other and delivery including normal (14 sources) Encounter for supervision of normal , unspecified, second trimester; Translations: [Encounter for supervision of normal first , second trimester] Onset: 07-31-2022 Episodic Other upper respiratory infections (18 sources) Acute upper respiratory infection, unspecified; Translations: [Acute sinusitis] Onset: 09-19-2022 Resolved: 11-16-2023 11-16-2023 Episodic Residual codes; unclassified (2 sources) Contact with and (suspected) exposure to lead; Translations: [Contact with and (suspected) exposure to lead] Onset: 10-11-2022 Episodic Urinary tract infections (10 sources) Acute pyelonephritis; Translations: [Acute pyelonephritis] Onset: 10-12-2024 Episodic Results Test Name Value Interpretation Reference Range Facility [facility] PREG QUANT HCGon 025 HCG QUANTITATIVE <1 mIU/mL [facility] Comment on above: 5-50 0.2-1 WEEK 50-500 1-2 WEEKS 100-5,000 2-3 WEEKS 500-10,000 3-4 WEEKS 1,000-50,000 4-5 WEEKS 10,000-100,000 5-6 WEEKS 15,000-200,000 6-8 WEEKS 10,000-100,000 2-[facility] PREG QUANT HCGon 025 HCG QUANTITATIVE <1 mIU/mL [facility] Comment on above: 5-50 0.2-1 WEEK 50-500 1-2 WEEKS 100-5,000 2-3 WEEKS 500-10,000 3-4 WEEKS 1,000-50,000 4-5 WEEKS 10,000-100,000 5-6 WEEKS 15,000-200,000 6-8 WEEKS 10,000-100,000 2[facility]ing[facility] Discharge Note-Nursing Discharge Note-Nursing DILMA KAUR :1990 Visit Date:10/12/2024 Inpatient Discharge Instructions Your Care Team Admitting Physician - Kenny Matute DO Reason for Your Visit nausea, vomiting, fever, back pain Your Diagnosis Sepsis Bacteremia Acute pyelonephritis Leukocytosis N&V (nausea and vomiting) Obese Back pain Body aches Malaise Tests Performed CT Abdomen/Pelvis w/o Contrast This Is Your Medications List acetaminophen (acetaminophen 325 mg Tab) albuterol (Albuterol (Eqv-Ventolin HFA) 90 mcg/inh inhalation aerosol) budesonide (Pulmicort Flexhaler 90 mcg/inh inhalation powder) cefdinir (cefdinir 300 mg Cap) citalopram (citalopram 20 mg Tab) oxcarbazepine (oxcarbazepine 150 mg Tab) phentermine (phentermine 37.5 mg Tab) trazodone (traZODONE 50 mg Tab) [Image Removed: STOP]Stop taking these medications multivitamin, (Classic ) Procedure History Appendectomy, Frost Teeth Extraction. Discharge Vitals Temperature (Axillary) 36.7 ???C Heart Rate (Monitored) 77 Respiratory Rate 16 Blood Pressure 106/71 What to do next Instructions From Your Doctor Event Name Event Result Discharge Activity Ambulate as tolerated, Expect mild pain, Activity as tolerated Discharge Diet(s) Regular, Drink liquids and eat a light meal Pending Diagnostic Test Results Blood culture New Follow Up Appointments after Discharge Follow Up with MIKEL IBARRA When: 10/30/2024 01:30 PM EDT Where: [address] [place] [address] Business (1) Medications What How Much When Why Instructions Next Dose New acetaminophen (acetaminophen 325 mg Tab) 2 Tablets By Mouth Every 6 hours as needed for Pain As needed, after 4:00 PM New cefdinir (cefdinir 300 mg Cap) 1 Capsules By Mouth Every 12 hours Bacteremia Acute pyelonephritis Duration: 11 Days Pickup at [facility] #[id number] Begin tonight at 10:00 PM Unchanged albuterol (Albuterol (Eqv-Ventolin HFA) 90 mcg/ inh inhalation aerosol) 2 Inhalation Inhalation Every 4 hours Resume today at 4:00 PM Unchanged budesonide (Pulmicort Flexhaler 90 mcg/ inh inhalation powder) 1 Inhalation Inhalation 2 times a day Resume tonight at 9:00 PM Unchanged citalopram (citalopram 20 mg Tab) 1 Tablets By Mouth Every day Resume 10/16/2024 Unchanged oxcarbazepine (oxcarbazepine 150 mg Tab) 1 Tablets By Mouth 2 times a day Resume tonight at 9:00 PM Unchanged phentermine (phentermine 37.5 mg Tab) 1 Tablets By Mouth Every day Resume 10/16/2024 Unchanged trazodone (traZODONE 50 mg Tab) 1 Tablets By Mouth Once a day (at bedtime) Resume tonight at bedtime Pharmacy Information [facility] #[id number]: [address] [place], [place] [id number] [phone] What How Much When Comments Stop Taking multivitamin, (Classic ) 1 Tablets By Mouth Every day Test Results CBC BMP WBC: 12.1 E9/L High (10/13/24 06:09:00) Glucose Lvl: 103 mg/dL (10/13/24 06:09:00) RBC: 4.1 E12/L Low (10/13/24 06:09:00) BUN: 8 mg/dL (10/13/24 06:09:00) HGB: 10.7 gm/dL Low (10/13/24 06:09:00) Creatinine: 0.8 mg/dL (10/13/24 06:09:00) Hct: 32.3 % Low (10/13/24 06:09:00) BUN/Creat Ratio: 10 (10/13/24 06:09:00) MCV: 79.5 fL Low (10/13/24 06:09:00) Sodium Lvl: 138 mmol/L (10/13/24 06:09:00) MCH: 26.3 pg Low (10/13/24 06:09:00) Potassium Lvl: 3.7 mmol/L (10/13/24 06:09:00) MCHC: 33.1 gm/dL (10/13/24 06:09:00) Chloride: 106 mmol/L (10/13/24 06:09:00) RDW: 17.2 % High (10/13/24 06:09:00) CO2: 27 mmol/L (10/13/24 06:09:00) Platelet: 260 E9/L (10/13/24 06:09:00) AGAP: 9 mEq/L (10/13/24 06:09:00) MPV: 8.5 fL (10/13/24 06:09:00) Calcium Lvl: 8.5 mg/dL Low (10/13/24 06:09:00) Allergies No Known Allergies Problems Ongoing - Any problem that you are currently receiving treatment for. None Education Materials Sepsis, Diagnosis, Adult Sepsis is a serious bodily reaction to an infection. The infection that triggers sepsis may be from a bacteria, virus, or fungus. Sepsis can result from an infection in any part of your body. Infections that commonly lead to sepsis include skin, lung, and urinary tract infections. Sepsis is a medical emergency that must be treated right away in a hospital. In severe cases, it can lead to septic shock. Septic shock can weaken your heart and cause your blood pressure to drop. This can cause your central nervous system and your body's organs to stop working. What are the causes? This condition is caused by a severe reaction to infections from bacteria, viruses, or fungus. The germs that most often lead to sepsis include: ??? Escherichia coli (E. coli) bacteria. ??? Staphylococcus aureus (staph) bacteria. ??? Some types of Streptococcus bacteria. The most common infections affect these organs: ??? The lung (pneumonia). ??? The kidneys or bladder (urinary tract infection). ??? The skin (cellulitis). (more content not included)... Normal [facility] Inpatient Clinical Summaryon 10-15-2024 Inpatient Clinical Summary Inpatient Clinical Summary [address] [address] Clinical Summary Person Information: Name: DILMA KAUR Age: 33 Years : 1990 Sex: Female PCP: MIKEL IBARRA MD Marital Status: Single Race: White Ethnicity: Non- or Language: Eritrean Visit Id: Visit Reason: Back pain; Malaise; Body aches; FEVER, BACK PAIN, VOMITING Speciality: Acuity: Enc Type: Inpatient Med Service: Medical Arrival: 10/12/2024 08:49:35 Discharge: Dispo Type: Admitted as IP to this Hosp Address: [address] [place] [phone] Provider Notes: Diagnosis: 1:Sepsis; 2:Bacteremia; 3:Acute pyelonephritis; 4:Leukocytosis; 5:N&V (nausea and vomiting); 6:Obese Problems Active None Smoking Status: Never Smoker Functional Status: Sensory Deficits: History of Falls: Mobility Assistance Prior to Admission: Independent ADLs: Independent Current Level of Assistance for Self-Care/Mobility: Cognitive Status: Oriented x 3 Allergies No Known Allergies Measurements: Height: 165 cm Weight: 103.8 kg Blood Pressure: 106 mmHg / 71 mmHg BMI: 38.2 kg/m2 Procedures No Procedures Documented Immunizations No Immunizations Documented This Visit Final Med List: acetaminophen (acetaminophen 325 mg Tab) 2 Tablets By Mouth every 6 hours as needed Pain. albuterol (Albuterol (Eqv-Ventolin HFA) 90 mcg/inh inhalation aerosol) 2 Inhalation Inhalation every 4 hours. budesonide (Pulmicort Flexhaler 90 mcg/inh inhalation powder) 1 Inhalation Inhalation 2 times a day. cefdinir (cefdinir 300 mg Cap) 1 Capsules By Mouth every 12 hours for 11 Days. Refills: 0. citalopram (citalopram 20 mg Tab) 1 Tablets By Mouth every day. oxcarbazepine (oxcarbazepine 150 mg Tab) 1 Tablets By Mouth 2 times a day. phentermine (phentermine 37.5 mg Tab) 1 Tablets By Mouth every day. trazodone (traZODONE 50 mg Tab) 1 Tablets By Mouth once a day (at bedtime). Care Team Members: Attending Physician: Kenny Matute DO Consulting Physician: Referring Physician: Follow up: With: Address: When: MIKEL IBARRA [address] [place] [phone] Business (1) 10/30/2024 1:30 PM Patient Education Information: Sepsis, Diagnosis, Adult Normal [facility] Inpatient Patient Summaryon 10-15-2024 Inpatient Patient Summary Inpatient Patient Summary [place] [id number] Patient Discharge Instructions PERSON INFORMATION Name: DILMA KAUR Date of : 1990 Current Date: 10/15/2024 13:05:04 PHYSICIANS Admitting Physician: Kenny Matute DO Primary Care Physician: MIKEL IBARRA MD PCP Comment: Discharge Diagnosis: 1:Sepsis; 2:Bacteremia; 3:Acute pyelonephritis; 4:Leukocytosis; 5:N&V (nausea and vomiting); 6:Obese Condition at Discharge: Improved DILMA KAUR has been given the following list of follow-up instructions, prescriptions, and patient education materials: PATIENT FOLLOW-UP INFORMATION Diet: Regular, Drink liquids and eat a light meal Discharge Activity: Ambulate as tolerated, Expect mild pain, Activity as tolerated Discharge Restrictions: Wound Care Instructions: Remove Your Dressing In Days Call Your Doctor For: IF UNABLE TO CONTACT YOUR PHYSICIAN AND YOU FEEL IT IS AN EMERGENCY, GO TO THE NEAREST EMERGENCY ROOM OR CALL 911 Home Treatment: Devices/Equipment: None Special Services: Additional Instructions: Primary Care Physician to provide the following pending test results: Blood culture Follow up: With: Address: When: MIKEL IBARRA [address] [place], [place] [id number] Business (1) 10/30/2024 1:30 PM In the event that this physician does not participate in your insurance network, please consult with your insurance company to find a nearby participating provider. Comment: VINCENT Sanders CHELSIE B, have received the attached patient education materials/instruction s and have verbalized understanding: Patient Signature Date Clinican/Nurse Signature Date HERE ARE THE MEDICATION CHANGES THAT OCCURRED DURING YOUR HOSPITAL STAY New Medications MD [id number], [address] [place], [place] [id number], [phone] cefdinir (cefdinir 300 mg Cap) 1 Capsules By Mouth every 12 hours for 11 Days. Refills: 0. Last Dose: ____Next Dose: ____ Other Medications acetaminophen (acetaminophen 325 mg Tab) 2 Tablets By Mouth every 6 hours as needed Pain. Last Dose: ____Next Dose: ____ Medications to Continue with No Changes Other Medications albuterol (Albuterol (Eqv-Ventolin HFA) 90 mcg/inh inhalation aerosol) 2 Inhalation Inhalation every 4 hours. Last Dose: ____Next Dose: ____ budesonide (Pulmicort Flexhaler 90 mcg/inh inhalation powder) 1 Inhalation Inhalation 2 times a day. Last Dose: ____Next Dose: ____ citalopram (citalopram 20 mg Tab) 1 Tablets By Mouth every day. Last Dose: ____Next Dose: ____ oxcarbazepine (oxcarbazepine 150 mg Tab) 1 Tablets By Mouth 2 times a day. Last Dose: ____Next Dose: ____ phentermine (phentermine 37.5 mg Tab) 1 Tablets By Mouth every day. Last Dose: ____Next Dose: ____ trazodone (traZODONE 50 mg Tab) 1 Tablets By Mouth once a day (at bedtime). Last Dose: ____Next Dose: ____ No Longer Take the Following Medications multivitamin, (Classic ) 1 Tablets By Mouth every day. Comment: MEDICATION LIST PROVIDED FOR YOU IS A LIST OF YOUR CURRENT MEDICATIONS. PLEASE CARRY THIS WITH YOU AT ALL TIMES. acetaminophen (acetaminophen 325 mg Tab) 2 Tablets By Mouth every 6 hours as needed Pain. albuterol (Albuterol (Eqv-Ventolin HFA) 90 mcg/inh inhalation aerosol) 2 Inhalation Inhalation every 4 hours. budesonide (Pulmicort Flexhaler 90 mcg/inh inhalation powder) 1 Inhalation Inhalation 2 times a day. cefdinir (cefdinir 300 mg Cap) 1 Capsules By Mouth every 12 hours for 11 Days. Refills: 0. citalopram (citalopram 20 mg Tab) 1 Tablets By Mouth every day. oxcarbazepine (oxcarbazepine 150 mg Tab) 1 Tablets By Mouth 2 times a day. phentermine (phentermine 37.5 mg Tab) 1 Tablets By Mouth every day. trazodone (traZODONE 50 mg Tab) 1 Tablets By Mouth once a day (at bedtime). Pharmacy Information: Comment: PATIENT EDUCATION INFORMATION Instructions: Sepsis, Diagnosis, Adult Sepsis is a serious bodily reaction to an infection. The infection that triggers sepsis may be from a bacteria, virus, or fungus. Sepsis can result from an infection in any part of your body. Infections that commonly lead to sepsis include skin, lung, and urinary tract infections. Sepsis is a medical emergency that must be treated right away in a hospital. In severe cases, it can lead to septic shock. Septic shock can weaken your heart and cause your blood pressure to drop. This can cause your central nervous system and your body's organs to stop working. (more content not included)... Normal [facility] Interdisciplinary Note - Jean e Manageron 10-15-2024 Interdisciplinary Note - Dry Molder Interdisciplinary Note - Dry Molder DC is pending blood cultures at this time. Patient denies DC needs from CM. CM to follow. Plan is home when medically stable. Normal [facility] Comment on above: Result Comment: Elec tronically Signed By: Erika Velez I\jose luis\Date and Time Signed: 10/15/24 12:12 EDT C Urineon 10-14-2024 Bacteria identified Cx Nom (U) Microbiology PROCEDURE: Urine Culture [R1] SOURCE: U CleanCatch BODY SITE: COLLECTED DATE/TIME: 10/12/2024 10:56 EDT RECEIVED DATE/TIME: 10/12/2024 15:08 EDT START DATE/TIME: 10/12/2024 15:09 EDT FREE TEXT SOURCE: Stefan HILL, Bing Lemos. Stefan HILL, Bing Lemos. FINAL REPORTS Final Report [] Verified Date/Time: 10/14/2024 09:34 EDT >100,000 cfu/ml Escherichia coli SUSCEPTIBILITY RESULTS LEGEND: S=Susceptible, N/R=Not Reported, Blank=Data not available, or drug not advisable or tested, I=Intermediate, ESBL=Extended spectrum beta-lactamase, R=Resistant, TFG=Thymidine-depende nt strain, JUANCARLOS=Beta-lactamase positive, EDGAR=mcg/m;(mg/L), S*=Predicted susceptible interp, R*=Predicted resistant interp EC Antibiotic EDGAR Dilutn EDGAR Interp Ampicillin <=8 S Ampicillin/ <=8/4 S Sulbactam Aztreonam <=4 S Cefazolin <=2 S Cefepime <=2 S Ceftazidime <=1 S Ceftazidime/ <=8 S Avibactam Ceftriaxone <=1 S Cefuroxime <=4 S Ciprofloxacin <=0.25 S Ertapenem <=0.5 S Gentamicin <=2 S Levofloxacin <=0.5 S Meropenem <=1 S Nitrofurantoin <=32 S Piperacillin/ <=8 S Tazobactam Tetracycline <=4 S Tobramycin <=2 S Trimethoprim/ <=2/38 S Sulfa Performing Locations R1: This test was performed at: [facility], [address] [place] [address], [id number] , [place], [facility] Comment on above: Performed By: #### 2 [id number] #### [facility] [address] [place] [address] Interdisciplinary Note - Jean e Manageron 10-14-2024 Interdisciplinary Note - Dry Molder Interdisciplinary Note - Dry Molder CM followed up with patient. Patient continues to deny DC needs at this time. Plan is home when medically stable. CM to follow. Normal [facility] Comment on above: Result Comment: Elec tronically Signed By: Erika Velez I\.br\Date and Time Signed: 10/14/24 13:36 EDT No Panel InformationOrdered By: CATHI MICROBIOLOGY on 10-14-2024 Blood Culture Charcoal No growth at 1 da y. Final to follow at 7 days. [facility] Blood Culture Charcoal No growth at 1 da y. Final to follow at 7 days. [facility] BMPon 10-13-2024 Anion gap [Moles/Vol] 9 mmol/L Normal 6-[address] [facility] Comment on above: Performed By: #### 2 [id number] #### [facility] [address] [place] [address] Calcium [Mass/Vol] 8.5 mg/dL Low 8.9-11.1 [facility] Comment on above: Performed By: #### 2 [id number] #### [facility] [address] [place] [address] Chloride [Moles/Vol] 106 mmol/L Normal 101-111 [facility] Comment on above: Performed By: #### 2 [id number] #### [facility] [address] [place] [address] CO2 [Moles/Vol] 27 mmol/L Normal 21-31 [facility] Comment on above: Performed By: #### 2 [id number] #### [facility] [address] [place] [address] Creatinine [Mass/Vol] 0.8 mg/dL Normal 0.5-1.[address] [facility] Comment on above: Performed By: #### 2 [id number] #### [facility] [address] [place] [address] Glucose [Mass/Vol] 103 mg/dL Normal 55-199 [facility] Comment on above: Performed By: #### 2 [id number] #### [facility] [address] [place] [address] Potassium [Moles/Vol] 3.7 mmol/L Normal 3.5-5.[address] [facility] Comment on above: Performed By: #### 2 [id number] #### [facility] [address] [place] [address] Sodium [Moles/Vol] 138 mmol/L Normal 135-145 [facility] Comment on above: Performed By: #### 2 [id number] #### [facility] [address] [place] [address] Urea nitrogen [Mass/Vol] 8 mg/dL Normal 5-21 [facility] Comment on above: Performed By: #### 2 [id number] #### [facility] [address] [place] [address] Urea nitrogen/Creatinine [Mass ratio] 10 No Units Normal 10-20 [facility] Comment on above: Performed By: #### 2 [id number] #### [facility] [address] [place] [address] CBC w/ Auto Diffon 5 Basophils/100 WBC (Bld) 0.3 % Normal 0.0-2.0 [facility] Comment on above: Performed By: #### 2 [id number] #### [facility] [address] [place] [address] Basophils/Leukocytes Auto (Bld) [Pure # fraction] 0.0 E9/L Normal 0.0-0.2 [facility] Comment on above: Performed By: #### 2 [id number] #### [facility] [address] [place] [address] Eosinophils (Bld) [#/Vol] 0.0 E9/L Normal 0.0-0.5 [facility] Comment on above: Performed By: #### 2 [id number] #### [facility] [address] [place] [address] Eosinophils/100 WBC (Bld) 0.1 % Normal 0.0-8.0 [facility] Comment on above: Performed By: #### 2 687684 #### [facility] [address] [place] [address] Erythrocyte distribution width (RBC) [Ratio] 17.2 % High 10.9-14.2 [facility] Comment on above: Performed By: #### 2 [id number] #### [facility] [address] [place] [address] Hematocrit (Bld) [Volume fraction] 32.3 % Low 34.0-46.0 [facility] Comment on above: Performed By: #### 2 [id number] #### [facility] [address] [place] [address] Hemoglobin (Bld) [Mass/Vol] 10.7 g/dL Low 12.0-16.0 [facility] Comment on above: Performed By: #### 2 820934 #### [facility] [address] [place] [address] Lymphocytes (Bld) [#/Vol] 2.4 E9/L Normal 1.0-4.0 [facility] Comment on above: Performed By: #### 2 916187 #### [facility] [address] [place] [address] Lymphocytes/100 WBC (Bld) 19.8 % Normal 14.0-50.0 [facility] Comment on above: Performed By: #### 2 798606 #### [facility] [address] [place] [address] MCH (RBC) [Entitic mass] 26.3 pg Low 27.0-34.0 [facility] Comment on above: Performed By: #### 2 [id number] #### [facility] [address] [place] [address] MCHC (RBC) [Mass/Vol] 33.1 g/dL Normal 31.4-36.[address] [facility] Comment on above: Performed By: #### 2 733825 #### [facility] [address] [place] [address] MCV (RBC) [Entitic vol] 79.5 fL Low 80.0-100.0 [facility] Comment on above: Performed By: #### 2 [id number] #### [facility] [address] [place] [address] Monocytes (Bld) [#/Vol] 1.7 E9/L High 0.2-1.0 [facility] Comment on above: Performed By: #### 2 [id number] #### [facility] [address] [place] [address] Neutrophils (Bld) [#/Vol] 8.0 E9/L High 2.0-7.5 [facility] Comment on above: Performed By: #### 2 [id number] #### [facility] [address] [place] [address] Neutrophils/100 WBC (Bld) 66.0 % Normal 36.0-75.0 [facility] Comment on above: Performed By: #### 2 899152 #### [facility] [address] [place] [address] Platelet mean volume (Bld) [Entitic vol] 8.5 fL Normal 6.4-10.8 [facility] Comment on above: Performed By: #### 2 [id number] #### [facility] [address] [place] [address] Platelets (Bld) [#/Vol] 260.0 E9/L Normal 150.0-500.0 [facility] Comment on above: Performed By: #### 2 [id number] #### [facility] [address] [place] [address] RBC (Bld) [#/Vol] 4.1 E12/L Low 4.3-5.9 [facility] Comment on above: Performed By: #### 2 [id number] #### [facility] [address] [place] [address] WBC corrected for nucl RBC Auto (Bld) [#/Vol] 12.1 E9/L High 4.0-11.0 [facility] Comment on above: Performed By: #### 2 242307 #### [facility] [address] [place] [address] CHEMISTRYOrdered By: SYSTEM SYSTEM on 10-13-2024 Lactic Acid Lvl 1.4 mmol/L Normal 0.5 - 2.2 mmol/L Rem[facility] Chem Anion gap [Moles/Vol] 9 mmol/L Normal 6 - 16 mEq/L R emisol Chem Calcium [Mass/Vol] 8.5 mg/dL Low 8.9 - 11. 1 mg/dL [facility] Chloride [Moles/Vol] 106 mmol/L Normal 101 - 1 11 mmol/L [facility] CO2 [Moles/Vol] 27 mmol/L Normal 21 - 31 mmol/L [facility] Creatinine [Mass/Vol] 0.8 mg/dL Normal 0.5 - 1.3 mg/dL [facility] eGFR 100 mL/min/1.73 m2 Normal >=59mL/mi n/1 .73 m2 [facility] Glucose [Mass/Vol] 103 mg/dL Normal 55 - 199 mg/dL [facility] Potassium [Moles/Vol] 3.7 mmol/L Normal 3.5 - 5.3 mmol/L [facility] Sodium [Moles/Vol] 138 mmol/L Normal 135 - 145 mmol/L [facility] Urea nitrogen [Mass/Vol] 8 mg/dL Normal 5 - 21 mg/dL [facility] Urea nitrogen/Creatinine [Mass ratio] 10 mg/mg Normal 10 - 20 [facility] HEMATOLOGYOrdered By: SYSTEM SYSTEM on 10-13-2024 Basophils/100 WBC (Bld) 0.3 % Normal 0.0 - 2.0 % Rem[facility]e Basophils/Leukocytes Auto (Bld) [Pure # fraction] 0.0 E9/L Normal 0.0 - 0.2 E9/L [facility] Eosinophils (Bld) [#/Vol] 0.0 E9/L Normal 0.0 - 0.5 E9/L [facility] Eosinophils/100 WBC (Bld) 0.1 % Normal 0.0 - 8.0 % [facility] Erythrocyte distribution width (RBC) [Ratio] 17.2 % High 10.9 - 14.2 % [facility] Hematocrit (Bld) [Volume fraction] 32.3 % Low 34.0 - 46.0 % [facility] Hemoglobin (Bld) [Mass/Vol] 10.7 g/dL Low 12.0 - 16.0 gm/dL [facility] Lymphocytes (Bld) [#/Vol] 2.4 E9/L Normal 1.0 - 4.0 E9/L [facility] Lymphocytes/100 WBC (Bld) 19.8 % Normal 14.0 - 50.0 % [facility] MCH (RBC) [Entitic mass] 26.3 pg Low 27.0 - 34.0 pg [facility]e MCHC (RBC) [Mass/Vol] 33.1 g/dL Normal 31.4 - 36.0 gm/dL [facility] MCV (RBC) [Entitic vol] 79.5 fL Low 80.0 - 100.0 fL [facility] Monocytes (Bld) [#/Vol] 1.7 E9/L High 0.2 - 1.0 E9/L [facility] Monocytes/100 WBC (Bld) 13.8 % Normal 4.0 - 14.0 % [facility] Neutrophils (Bld) [#/Vol] 8.0 E9/L High 2.0 - 7.5 E9/L [facility] Neutrophils/100 WBC (Bld) 66.0 % Normal 36.0 - 75.0 % [facility] Platelet mean volume (Bld) [Entitic vol] 8.5 fL Normal 6.4 - 10.8 fL [facility] Platelets (Bld) [#/Vol] 260.0 E9/L Normal 150.0 - 500.0 E9/L [facility] RBC (Bld) [#/Vol] 4.1 E12/L Low 4.3 - 5.9 E12/L [facility] WBC corrected for nucl RBC Auto (Bld) [#/Vol] 12.1 E9/L High 4.0 - 11.0 E9/L [facility] Interdisciplinary Note - Jean e Manageron 10-13-2024 Interdisciplinary Note - Dry Molder Interdisciplinary Note - Dry Molder CM met with patient and mother at bedside. Patient is from home and lives with her young daughter. Patient is indepedent with all self care and drives. Patient denies DC needs and mom is supportive if needed at home. Normal [facility] Comment on above: Result Comment: Elec tronically Signed By: Erika Velez I\.br\Date and Time Signed: 10/13/24 11:58 EDT Lactic Acidon 10-13-2024 Lactic Acid Lvl 1.4 mmol/L Normal 0.5-2.2 [facility] Comment on above: Performed By: #### 2 [id number] #### [facility] [address] [place] [address] eGFRon 10-13-2024 eGFR 100 mL/min/1.73 m2 Normal >=59 [facility] Comment on above: Performed By: #### 1 [id number] #### [facility] [address] [place] [address] BMPon 10-12-2024 Anion gap [Moles/Vol] 12 mmol/L Normal 6-[address] [facility] Comment on above: Performed By: #### 2 [id number] #### [facility] [address] [place] [address] Calcium [Mass/Vol] 8.9 mg/dL Normal 8.9-11.1 [facility] Comment on above: Performed By: #### 2 [id number] #### [facility] [address] [place] [address] Chloride [Moles/Vol] 101 mmol/L Normal 101-111 [facility] Comment on above: Performed By: #### 2 432791 #### [facility] [address] [place] [address] CO2 [Moles/Vol] 25 mmol/L Normal 21-31 [facility] Comment on above: Performed By: #### 2 140014 #### [facility] [address] [place] [address] Creatinine [Mass/Vol] 0.8 mg/dL Normal 0.5-1.[address] [facility] Comment on above: Performed By: #### 2 [id number] #### [facility] [address] [place] [address] Glucose [Mass/Vol] 99 mg/dL Normal 55-199 [facility] Comment on above: Performed By: #### 2 689635 #### [facility] [address] [place] [address] Potassium [Moles/Vol] 3.5 mmol/L Normal 3.5-5.[address] [facility] Comment on above: Performed By: #### 2 389292 #### [facility] [address] [place] [address] Sodium [Moles/Vol] 134 mmol/L Low 135-145 [facility] Comment on above: Performed By: #### 2 974583 #### [facility] [address] [place] [address] Urea nitrogen [Mass/Vol] 8 mg/dL Normal 5-21 [facility] Comment on above: Performed By: #### 2 757799 #### [facility] [address] [place] [address] Urea nitrogen/Creatinine [Mass ratio] 10 No Units Normal 10-20 [facility] Comment on above: Performed By: #### 2 018510 #### [facility] [address] [place] [address] CBC w/ Auto Diffon 5 Anisocytosis Ql (Bld) PRESENT Invalid Interpretation Code [facility] Comment on above: Performed By: #### 2 062494 #### [facility] [address] [place] [address] Basophils/100 WBC (Bld) 0.5 % Normal 0.0-2.0 [facility] Comment on above: Performed By: #### 2 872265 #### [facility] [address] [place] [address] Basophils/Leukocytes Auto (Bld) [Pure # fraction] 0.1 E9/L Normal 0.0-0.2 [facility] Comment on above: Performed By: #### 2 [id number] #### [facility] [address] [place] [address] Eosinophils (Bld) [#/Vol] 0.0 E9/L Normal 0.0-0.5 [facility] Comment on above: Performed By: #### 2 580895 #### [facility] [address] [place] [address] Eosinophils/100 WBC (Bld) 0.0 % Normal 0.0-8.0 [facility] Comment on above: Performed By: #### 2 533900 #### [facility] [address] [place] [address] Erythrocyte distribution width (RBC) [Ratio] 17.2 % High 10.9-14.2 [facility] Comment on above: Performed By: #### 2 222649 #### [facility] [address] [place] [address] Hematocrit (Bld) [Volume fraction] 35.1 % Normal 34.0-46.0 [facility] Comment on above: Performed By: #### 2 293300 #### [facility] [address] [place] [address] Hemoglobin (Bld) [Mass/Vol] 11.5 g/dL Low 12.0-16.0 [facility] Comment on above: Performed By: #### 2 [id number] #### [facility] [address] [place] [address] Hypochromia Auto Ql (Bld) PRESENT Invalid Interpretation Code [facility] Comment on above: Performed By: #### 2 [id number] #### [facility] [address] [place] [address] Lymphocytes (Bld) [#/Vol] 1.8 E9/L Normal 1.0-4.0 [facility] Comment on above: Performed By: #### 2 663200 #### [facility] [address] [place] [address] Lymphocytes/100 WBC (Bld) 11.5 % Low 14.0-50.0 [facility] Comment on above: Performed By: #### 2 825547 #### [facility] [address] [place] [address] MCH (RBC) [Entitic mass] 26.2 pg Low 27.0-34.0 [facility] Comment on above: Performed By: #### 2 587412 #### [facility] [address] [place] [address] MCHC (RBC) [Mass/Vol] 32.8 g/dL Normal 31.4-36.[address] [facility] Comment on above: Performed By: #### 2 325476 #### [facility] [address] [place] [address] MCV (RBC) [Entitic vol] 79.8 fL Low 80.0-100.0 [facility] Comment on above: Performed By: #### 2 [id number] #### [facility] [address] [place] [address] Microcytes Ql (Bld) PRESENT Invalid Interpretation Code [facility] Comment on above: Performed By: #### 2 517303 #### [facility] [address] [place] [address] Monocytes (Bld) [#/Vol] 1.8 E9/L High 0.2-1.0 [facility] Comment on above: Performed By: #### 2 [id number] #### [facility] [address] [place] [address] Neutrophils (Bld) [#/Vol] 11.6 E9/L High 2.0-7.5 [facility] Comment on above: Performed By: #### 2 343176 #### [facility] [address] [place] [address] Neutrophils/100 WBC (Bld) 76.3 % High 36.0-75.0 [facility] Comment on above: Performed By: #### 2 269427 #### [facility] [address] [place] [address] Platelet mean volume (Bld) [Entitic vol] 8.2 fL Normal 6.4-10.8 [facility] Comment on above: Performed By: #### 2 [id number] #### [facility] [address] [place] [address] Platelets (Bld) [#/Vol] 270.0 E9/L Normal 150.0-500.0 [facility] Comment on above: Performed By: #### 2 818577 #### [facility] [address] [place] [address] Platelets Large LM Ql (Bld) PRESENT Invalid Interpretation Code [facility] Comment on above: Performed By: #### 2 [id number] #### [facility] [address] [place] [address] RBC (Bld) [#/Vol] 4.4 E12/L Normal 4.3-5.9 [facility] Comment on above: Performed By: #### 2 197860 #### [facility] [address] [place] [address] RBC size Nom (Bld) SEE MORPHOLOGY Invalid Interpretation Code [facility] Comment on above: Performed By: #### 2 222382 #### [facility] [address] [place] [address] WBC corrected for nucl RBC Auto (Bld) [#/Vol] 15.3 E9/L High 4.0-11.0 [facility] Comment on above: Result Comment: Sarah pheral smear review performed. Performed By: #### 2 350971 #### [facility] [address] [place] [address] CEFTRIAXONE:SUSC:PT:ISOLATE: ORDQN:MICOrdered By: Bing Delgadillo on 10-12-2024 cefTRIAXone EDGAR [Susc] Escherichia coli In 2 of 2 blood culture bottles drawn. Isolated from aerobic and anaerobic bottles Preliminary gram stain result of gram negative rods Result called to Dr. Low by [facility] and results read back for confirmation on 10/13/2024 11:16:35 [facility] CEFUROXIME:SUSC:PT:ISOLATE:O RDQN:MICOrdered By: Bing Delgadillo on 10-12-2024 Cefuroxime EDGAR [Susc] >100,000 cfu/ml Escherichia coli [facility] CHEMISTRYOrdered By: SYSTEM SYSTEM on 10-12-2024 Lactic Acid Lvl 1.3 mmol/L Normal 0.5 - 2.2 mmol/L Remisol Chem Albumin [Mass/Vol] 4.0 g/dL Normal 3.3 - 5.0 gm/dL Remisol Chem Albumin/Globulin [Mass ratio] 1.0 {ratio} Low 1.1 - 2.2 Remisol Chem ALP [Catalytic activity/Vol] 86 [iU]/d Normal 21 - 98 Int._Unit/L Remisol Chem ALT No additional P-5'-P [Catalytic activity/Vol] 14 [iU]/d Normal 6 - 46 Int._Unit/L Remisol Chem Anion gap [Moles/Vol] 12 mmol/L Normal 6 - 16 mEq/L R emisol Chem AST [Catalytic activity/Vol] 17 [iU]/d Normal 5 - 43 Int._Unit/L Remisol Chem Bilirubin [Mass/Vol] 0.8 mg/dL Normal 0.0 - 1 .1 mg/dL Remisol Chem Bilirubin.direct [Mass/Vol] 0.3 mg/dL Normal 0.0 - 0.4 mg/dL Remisol Chem Bilirubin.indirect [Mass or moles/Vol] 0.5 mg/dL Normal 0.1 - 0.9 mg/dL Remisol Chem Calcium [Mass/Vol] 8.9 mg/dL Normal 8.9 - 11. 1 mg/dL Remisol Chem Chloride [Moles/Vol] 101 mmol/L Normal 101 - 1 11 mmol/L Remisol Chem CO2 [Moles/Vol] 25 mmol/L Normal 21 - 31 mmol/L Remisol Chem Creatinine [Mass/Vol] 0.8 mg/dL Normal 0.5 - 1.3 mg/dL Remisol Chem eGFR 100 mL/min/1.73 m2 Normal >=59mL/mi n/1 .73 m2 Remisol Chem Globulin (S) [Mass/Vol] 3.9 g/dL Normal 1.4 - 4.0 gm/dL Remisol Chem Glucose [Mass/Vol] 99 mg/dL Normal 55 - 199 mg/dL Remisol Chem Lipase [Catalytic activity/Vol] 3 U/L Low 13 - 58 unit/L Remisol Chem Potassium [Moles/Vol] 3.5 mmol/L Normal 3.5 - 5.3 mmol/L Remisol Chem Protein [Mass/Vol] 7.9 g/dL High 6.0 - 7.8 gm/dL Remisol Chem Sodium [Moles/Vol] 134 mmol/L Low 135 - 145 mmol/L Remisol Chem Urea nitrogen [Mass/Vol] 8 mg/dL Normal 5 - 21 mg/dL Remisol Chem Urea nitrogen/Creatinine [Mass ratio] 10 mg/mg Normal 10 - [address] Abdomen/Pelvis w/o Contra ston 10-12-2024 CT Abdomen/Pelvis w/o Contrast Exam Date/Time: 10/12/2024 11:46 EDT Reason for Exam: ABDOMINAL PAIN, ACUTE, NONLOCALIZED;Other (please specify) Report IMPRESSION: MILD LEFT PERINEPHRIC INFLAMMATION, MOST LIKELY PYELONEPHRITIS OR RECENTLY PASSED CALCULUS. EXAM: CT Abdomen/Pelvis w/o Contrast, CT Spine Thoracolumbar DATE: 10/12/2024 11:22 AM CLINICAL HISTORY: ABDOMINAL PAIN, ACUTE, NONLOCALIZED. Technologist Comments: spine recons, pr presents with c/o back pain, body aches and chills. states fever for past 3 days. c/o lower back pain , hx appendectomy. COMPARISON: None available. TECHNIQUE: Spiral imaging was obtained of the abdomen and pelvis after the infusion of approximately 100 mL of Isovue 300 contrast. Routine multiplanar reformatted reconstructions were performed; including dedicated reconstructions of the thoracolumbar spine. All CT scans at this facility use dose modulation, iterative reconstruction, and/or weight based dosing when appropriate to reduce radiation dose to as low as reasonably achievable. Unless otherwise stated, incidental findings identified in this report do not require routine follow-up imaging. ABDOMEN AND PELVIS CT FINDINGS: Liver: No enlargement, significant fatty infiltration, suspicious mass or lesion. Biliary: The gallbladder is unremarkable. No abnormal biliary ductal dilatation. Pancreas: No suspicious mass, organized fluid collection, surrounding inflammation, or abnormal pancreatic ductal dilatation. Spleen: Unremarkable. Adrenals: Unremarkable. Kidneys: Mild asymmetric left perinephric inflammation, most likely pyelonephritis or recently passed calculus. No hydronephrosis, significant urinary tract calculi, or suspicious mass. GI tract: No abnormal dilation, wall thickening, or suspicious mass. The appendix has reportedly been removed. Lymph nodes: No pathologically enlarged lymph nodes. Vasculature: No aneurysm or dissection. Mesentery/peritoneum/ retroperitoneum: No ascites, organized fluid collection, or suspicious mass. Pelvis: The minimally distended urinary bladder is otherwise unremarkable. The uterus and adnexa appear within normal limits. Musculoskeletal: No acute osseous findings identified. Report THORACOLUMBAR SPINE CT FINDINGS: The spine is visualized from T9-T10 level through the coccyx. There is no fracture, dislocation, evidence of instability, central spinal stenosis, neural foraminal narrowing, sizable disc herniations, or significant degenerative changes. Ordering Provider: Bing Aviles FINAL REPORT Dictated: 10/12/2024 12:00 pm Ray Galindo MD Signed (Electronic Signature): 10/12/2024 12:00 pm Signed by: Ray Galindo MD Transcribed by: JAMESON Technologist: SCAR Azevedo [facility] Cefuroxime EDGAR [Susc]Ordered By: Bing Delgadillo on 10-12-2024 Escherichia coli Escherichia coli [facility] ED Clinical Summaryon 2024 ED Clinical Summary ED Clinical Summary [address] [address] ED Clinical Summary Person Information Name: DILMA KAUR [place] Age: 33 Years : 1990 Sex: Female Language: Eritrean PCP: MIKEL IBARRA MD Marital Status: Single MRN: [id number] Visit Id: Visit Reason: Back pain; Malaise; Body aches; FEVER, BACK PAIN, VOMITING Speciality: Acuity: 3 Enc Type: Inpatient Med Service: Medical Arrival: 10/12/2024 08:49:35 Discharge: LOS: 000 07:07 Checkin: 10/12/2024 08:49:35 Checkout: 10/12/2024 15:56:18 Dispo Type: Admitted as IP to this [facility] EVENTS: Event Name Event Status Request Date/Time Start Date/Time Complete Date/Time Arrive Complete 10/12/2024 08:49:35 10/12/2024 08:49:35 10/12/2024 08:49:35 Document Home Meds Request 10/12/2024 08:49:35 Triage Complete 10/12/2024 08:49:35 10/12/2024 08:59:05 10/12/2024 08:59:05 Bed Assign Complete 10/12/2024 08:59:13 10/12/2024 08:59:13 10/12/2024 08:59:13 Dr Exam Complete 10/12/2024 08:59:13 10/12/2024 09:01:03 10/12/2024 09:01:03 RN Exam Complete 10/12/2024 08:59:13 10/12/2024 09:02:05 10/12/2024 09:02:05 Registration Complete 10/12/2024 09:01:03 10/12/2024 09:04:06 10/12/2024 09:04:06 Dr Exam Complete 10/12/2024 09:03:01 10/12/2024 09:03:01 10/12/2024 09:03:01 Reg Complete Request 10/12/2024 09:04:06 Reg Bed Request Complete 10/12/2024 09:04:06 10/12/2024 09:04:06 10/12/2024 09:04:06 CT Complete 10/12/2024 09:11:03 10/12/2024 10:07:47 10/12/2024 11:46:05 Pending Labs Complete 10/12/2024 09:11:03 10/12/2024 11:17:34 Lab Complete 10/12/2024 09:11:03 10/12/2024 11:17:34 Meds Admin Complete 10/12/2024 09:11:03 10/12/2024 09:20:18 Urine Collect Complete 10/12/2024 09:11:03 10/12/2024 11:17:34 Pending Labs Complete 10/12/2024 09:28:00 10/12/2024 09:28:00 10/12/2024 09:53:50 Lab Complete 10/12/2024 09:28:00 10/12/2024 09:28:00 10/12/2024 09:53:50 Pending Labs Complete 10/12/2024 11:06:46 10/12/2024 11:06:46 10/12/2024 11:06:46 Pending Labs Inlab 10/12/2024 11:17:23 10/12/2024 11:17:23 Lab Inlab 10/12/2024 11:17:23 10/12/2024 11:17:23 Meds Admin Complete 10/12/2024 11:47:28 10/12/2024 12:27:27 Pending Labs Inlab 10/12/2024 11:47:28 Lab Inlab 10/12/2024 11:47:28 Meds Admin Complete 10/12/2024 12:08:48 10/12/2024 12:17:25 Consult Request 10/12/2024 12:43:06 Hospitalist Consult Request 10/12/2024 12:43:06 Admit Request 10/12/2024 13:33:08 Patient Care Request 10/12/2024 13:33:09 Patient Care Request 10/12/2024 13:33:10 Patient Care Request 10/12/2024 13:33:10 Patient Care Request 10/12/2024 13:33:10 Patient Care Request 10/12/2024 13:33:11 Patient Care Request 10/12/2024 13:33:11 ADDRESS: [address] [place], [place] [address] [phone] [facility] DOC NOTES: MEDICAL INFORMATION: Prescriptions Given: Medications to Continue with No Changes Other Medications albuterol (albuterol HFA 90 mcg/inh MDI) 1 Puffs Inhalation every 4 hours as needed for wheezing. Refills: 0. APAP/dextromethorphan /pseudoephedrine (DayQuil) multivitamin, (Classic ) 1 Tablets By Mouth every day. promethazine (Phenergan 25 mg Tab) 1 Tablets By Mouth every 6 hours. PATIENT EDUCATION INFORMATION: Instructions: Follow up: DIAGNOSIS: Acute pyelonephritis; Leukocytosis; N&V (nausea and vomiting) Normal [facility] ED Note-Physicianon 10-13-19 ED Note-Physician ED Note-Physician Basic Information Time Seen: Bing Aviles PA-C 10/12/2024 09:01 Chief Complaint pr presents with c/o back pain, body aches and chills. states fever for past 3 days. c/o lower back pain History of Present Illness Patient is a 33-year-old female status post appendectomy who presents to the ED with left lower back pain, malaise, and fevers that has been going on for the past 2 to 3 days. Patient describes the lower back pain as occurring sporadically, but notes it is worsened when laying on her left side. She denies any known injury or trauma. Patient states she has been experiencing fevers ranging from 101 to 104 ???F. Patient states she had a fever of 104 ???F today and took Tylenol around 0630. She does note nausea and vomiting as well. Patient denies any abdominal pain, changes urination, or changes in bowel movements. Review of Systems A 10 point review of systems is negative except as noted above. Medical and Surgical History: Reviewed and noted Social history: Lives at home Family History: Reviewed. Tobacco: Denies Physical Exam Vitals & Measurements T: 36.5 ???C(Oral) HR: 97(Peripheral) RR: 18 BP: 115/70 SpO2: 100% HT: 167.6 cm WT: 98.5 kg BMI: 35.07 General: The patient appears well and in no apparent distress. Patient is resting comfortably on cart. Skin: Warm, dry, no pallor noted. Head: Normocephalic, atraumatic Neck: Trachea midline, no midline spinal tenderness to palpation Eye: PERRLA, EOMI ENT: Moist mucus membranes Cardiovascular: Regular rate normal peripheral perfusion Respiratory: No respiratory distress no accessory muscle use no obvious audible wheezing Chest Wall: no deformity Musculoskeletal: normal ROM, no deformity, no swelling GI: Soft no obvious distention. No rebound or rigidity. No guarding. Mild left CVA tenderness Neurological: A&O moves all extremities equal strength and symmetry Psychiatric: Cooperative and appropriate Medical Decision Making Patient is a 33-year-old female status post appendectomy who presents to the ED with left lower back pain, malaise, and fevers that has been going on for the past 2 to 3 days. Patient is hemodynamically stable and afebrile. On exam she does have mild left CVA tenderness. Due to concerns for pyelonephritis versus obstructing nephrolithiasis, lab work is obtained. She is given Zofran and Toradol. Lab work is reviewed. Leukocytosis of 15.3. Sodium is 134. Urinalysis is concerning for urinary tract infection. CT abdomen/pelvis is showing mild left perinephric stranding most likely pyelonephritis or recently passed calculi. There is no hydronephrosis or significant urinary tract calculi. Patient denies any urinary symptoms to represent passage of a stone, therefore I do have more suspicion for pyelonephritis. Patient is given Rocephin and 1 L normal saline. She is also given Phenergan for continued nausea. Case was discussed with the hospitalist who is admitting the patient for further management of care. Patient is agreeable with the plan and all questions were answered. Assessment/Plan Acute pyelonephritis (N10: Acute pyelonephritis) Leukocytosis (D72.829: Elevated white blood cell count, unspecified) N&V (nausea and vomiting) (R11.2: Nausea with vomiting, unspecified) Orders: ceftriaxone + Sodium Chloride 0.9% intravenous solution 50 mL, 1,000 mg = 1 EA, IV Piggyback, Once, Stop date 10/12/24 11:47:00 EDT, STAT, Start date 10/12/24 11:47:00 EDT, 100 mL/hr, Infuse over 30 minute(s), 10/12/24 11:47:00 EDT ketorolac, 30 mg = 1 mL, Injection, IV Push, Once, Stop date 10/12/24 11:47:00 EDT, STAT, Start date 10/12/24 11:47:00 EDT, 10/12/24 11:47:00 EDT ondansetron, 4 mg = 1 tab(s), Tab-Dis, Oral, Once, Stop date 10/12/24 9:10:00 EDT, STAT, Start date 10/12/24 9:10:00 EDT, 10/12/24 9:10:00 EDT promethazine 12.5 mg + Sodium Chloride 0.9% intravenous solution 50 mL, IV Piggyback, Once, Stop date 10/12/24 12:08:00 EDT, STAT, Start date 10/12/24 12:08:00 EDT, 151.5 mL/hr, Infuse over 20 minute(s), 10/12/24 12:08:00 EDT Sodium Chloride 0.9% intravenous solution, 1,000 mL, Soln-IV, IV, Once, Stop date 10/12/24 12:08:00 EDT, STAT, Start date 10/12/24 12:08:00 EDT, Infuse over 61, minute(s) Basic Metabolic Panel Blood Culture Charcoal Blood Culture Charcoal CBC w/ Auto Diff CT Abdomen/Pelvis w/o Contrast eGFR Extra Blue Tube Hepatic Function Panel Lactic Acid Lipase Level U Beta Hcg Qual UA with Cult Rflx Urine Culture Medications Administered Given ketorolac 30 mg/mL Inj 1 mL, 30 mg, IV Push NS 1000 ml Bolus, 1000 mL, IV ondansetron 4 mg Dis Tab, 4 mg, Oral promethazine additive 12.5 mg + Sodium Chloride 0.9% IV Malissa 50 mL (INT) 50 mL, IV Piggyback Sodium Chloride 0.9% intravenous solution 50 mL + ceftriaxone additive 1000 mg, IV Piggyback Disposition Plan Patient Discharge Condition stable Discharge Disposition admit Discharge Prescription List Prescriptions No active prescription medications (more content not included)... Normal [facility] Comment on above: Result Comment: Elec tronically Signed By: Bing Aviles PA-C\.br\Date and Time Signed: 10/12/24 14:52 EDT\.br\Electronically Co-Signed By: Ynes Trinidad M.D.\.br\Date and Time Co-Signed: 10/12/24 16:53 EDT ED Patient Education Noteon 10-12-2024 ED Patient Education Note ED Patient Education Note Normal [facility] ED Patient Summaryon 025 ED Patient Summary ED Patient Summary [place] [id number] Patient Discharge Instructions Person Information Name: DILMA KAUR Age: 33 Years Arrival Date: 10/12/2024 08:49:35 Discharge Diagnosis: Acute pyelonephritis; Leukocytosis; N&V (nausea and vomiting) Primary Care Physician: MIKEL IBARRA MD Provider Information Primary Provider: Ynes Trinidad M.D. Advanced Nursing Support Worker:Bing Aviles PA-C The exam and treatment you received in the Emergency Department were for an urgent problem and are not intended as complete care. It is important that you follow up with a doctor, nurse practitioner, or physician???s conference assistant for ongoing care. If your symptoms become worse or you do not improve as expected and you are unable to reach your usual health care provider, you should return to the Emergency Department. We are available 24 hours a day. DILMA KAUR has been given the following list of patient education materials, prescriptions and follow-up instructions: Follow-up Instructions: In the event that this physician does not participate in your insurance network, please consult with your insurance company to find a nearby participating provider. Patient Education Materials: A MESSAGE TO ALL PATIENTS REGARDING OPIOIDS PRESCRIPTION OPIOIDS: WHAT YOU NEED TO KNOW Prescription opioids can be used to help relieve szoqexpq-ed-dclpkr pain and are often prescribed following a surgery or injury, or for certain health conditions. These medications can be an important part of the treatment but also come with serious risks. It is important to work with your healthcare provider to make sure you are getting the safest, most effective care. WHAT ARE THE RISKS AND SIDE EFFECTS OF OPIOID USE? Prescription opioids carry serious risks of addiction and overdose, especially with prolonged use. An opioid overdose, often marked by slowed breathing, can cause sudden . The use of prescription opioids can have a number of side effects as well, even when taken as directed: ??? Tolerance???meaning you might need to take more of the medication for the same pain relief ??? Physical dependence???meaning you have symptoms of withdrawal when a medication is stopped ??? Increased sensitivity to pain ??? Constipation ??? Nausea, vomiting, and dry mouth ??? Sleepiness and dizziness ??? Confusion ??? Depression ??? Low levels of testosterone that can result in lower sex drive, energy, and strength ??? Itching and sweating RISKS ARE GREATER WITH: ??? History of drug misuse, substance use disorder, or overdose ??? Mental health conditions (such as depression or anxiety) ??? Sleep apnea ??? Older age (65 years and older) ??? Avoid alcohol while taking prescription opioids. Also, unless specifically advised by your health care provider, medications to avoid include: ??? Benzodiazepines (such as Xanax or Valium) ??? Muscle relaxants (such as Soma or Flexeril) ??? Hypnotics (such as Ambien or Lunesta) ??? Other prescription opioids KNOW YOUR OPTIONS Talk to your health care provider about ways to manage your pain that don???t involve prescription opioids. Some of these options may actually work better and have fewer risks and side effects. Options may include: ??? Pain relievers such as acetaminophen, ibuprofen, and naproxen ??? Some medication that are also used for depression or seizures ??? Physical therapy and exercise ??? Cognitive behavioral therapy, a psychological, goal-directed approach, in which patients learn how to modify physical, behavioral, and emotional triggers of pain and stress. IF YOU ARE PRESCRIBED OPIOIDS FOR PAIN: ??? Never take opioids in greater amounts or more often than prescribed. ??? Follow up with your primary health care provider. o Work together to create a plan on how to manage your pain. o Talk about ways to help manage your pain that don???t involve prescription opioids. o Talk about any and all concerns and side effects. ??? Help prevent misuse and abuse o Never sell or share prescription opioids. o Never use another person???s prescription opioids. ??? Store prescription opioids in a secure place and out of reach of others (this may include visitors, children, friends, and family). ??? Safely dispose of unused prescription opioids: Find your community drug take-back program or your pharmacy mail-back program, or flush them down the toilet, following guidance from the Food and Drug Administration (www.fda.gov/Drugs/Re sourcesForYou). ??? Visit www.cdc.gov/drugoverd ose to learn about the risks of opioids abuse and overdose. ??? If you believe you may be struggling with addiction, tell your health cattle care worker and ask for guidance or call SAMHSA???S National Helpline at 0-299-822-HELP. v Source: [place] Department of (more content not included)... Normal [facility] Extra Blueon 10-12-2024 Tube Collected Plasma Yes Invalid Interpretation Code [facility] Comment on above: Performed By: #### 1 [id number] #### [facility] [address] [place] [address] HEMATOLOGYOrdered By: SYSTEM SYSTEM on 10-12-2024 Anisocytosis Ql (Bld) PRESENT *NA* (10/12/24 9:18 AM) Invalid Interpretation Code Remisol Heme Basophils/100 WBC (Bld) 0.5 % Normal 0.0 - 2.0 % Remisol Heme Basophils/Leukocytes Auto (Bld) [Pure # fraction] 0.1 E9/L Normal 0.0 - 0.2 E9/L Remisol Heme Eosinophils (Bld) [#/Vol] 0.0 E9/L Normal 0.0 - 0.5 E9/L Remisol Heme Eosinophils/100 WBC (Bld) 0.0 % Normal 0.0 - 8.0 % Remisol Heme Erythrocyte distribution width (RBC) [Ratio] 17.2 % High 10.9 - 14.2 % Remisol Heme Hematocrit (Bld) [Volume fraction] 35.1 % Normal 34.0 - 46.0 % Remisol Heme Hemoglobin (Bld) [Mass/Vol] 11.5 g/dL Low 12.0 - 16.0 gm/dL Remisol Heme Hypochromia Auto Ql (Bld) PRESENT *NA* (10/12/24 9:18 AM) Invalid Interpretation Code Remisol Heme Lymphocytes (Bld) [#/Vol] 1.8 E9/L Normal 1.0 - 4.0 E9/L Remisol Heme Lymphocytes/100 WBC (Bld) 11.5 % Low 14.0 - 50.0 % Remisol Heme MCH (RBC) [Entitic mass] 26.2 pg Low 27.0 - 34.0 pg Remisol Heme MCHC (RBC) [Mass/Vol] 32.8 g/dL Normal 31.4 - 36.0 gm/dL Remisol Heme MCV (RBC) [Entitic vol] 79.8 fL Low 80.0 - 100.0 fL Remisol Heme Microcytes Ql (Bld) PRESENT *NA* (10/12/24 9:18 AM) Invalid Interpretation Code Remisol Heme Monocytes (Bld) [#/Vol] 1.8 E9/L High 0.2 - 1.0 E9/L Remisol Heme Monocytes/100 WBC (Bld) 11.7 % Normal 4.0 - 14.0 % Remisol Heme Neutrophils (Bld) [#/Vol] 11.6 E9/L High 2.0 - 7.5 E9/L Remisol Heme Neutrophils/100 WBC (Bld) 76.3 % High 36.0 - 75.0 % Remisol Heme Platelet mean volume (Bld) [Entitic vol] 8.2 fL Normal 6.4 - 10.8 fL Remisol Heme Platelets (Bld) [#/Vol] 270.0 E9/L Normal 150.0 - 500.0 E9/L Remisol Heme Platelets Large LM Ql (Bld) PRESENT *NA* (10/12/24 9:18 AM) Invalid Interpretation Code Remisol Heme RBC (Bld) [#/Vol] 4.4 E12/L Normal 4.3 - 5.9 E12/L Remisol Heme RBC size Nom (Bld) SEE MORPHOLOGY *NA* (10/12/24 9:18 AM) Invalid Interpretation Code Remisol Heme WBC corrected for nucl RBC Auto (Bld) [#/Vol] 15.3 E9/L High 4.0 - 11.0 E9/L Remisol Heme Comment on above: Result Comment: Sarah pheral smear review performed. Hep Func Panelon 10-12-2024 Albumin [Mass/Vol] 4.0 g/dL Normal 3.3-5.0 [facility] Comment on above: Performed By: #### 2 [id number] #### [facility] [address] [place] [address] Albumin/Globulin (S) [Mass conc ratio] 1.0 Low 1.1-2.2 [facility] Comment on above: Performed By: #### 2 [id number] #### [facility] [address] [place] [address] ALP [Catalytic activity/Vol] 86 Int._Unit/L Normal 21-98 [facility] Comment on above: Performed By: #### 2 [id number] #### [facility] [address] [place] [address] ALT No additional P-5'-P [Catalytic activity/Vol] 14 Int._Unit/L Normal 6-46 [facility] Comment on above: Performed By: #### 2 [id number] #### [facility] [address] [place] [address] AST [Catalytic activity/Vol] 17 Int._Unit/L Normal 5-43 [facility] Comment on above: Performed By: #### 2 [id number] #### [facility] [address] [place] [address] Bilirubin [Mass/Vol] 0.8 mg/dL Normal 0.0-1.1 [facility] Comment on above: Performed By: #### 2 [id number] #### [facility] [address] [place] [address] Bilirubin.direct [Mass/Vol] 0.3 mg/dL Normal 0.0-0.4 [facility] Comment on above: Performed By: #### 2 [id number] #### [facility] [address] [place] [address] Bilirubin.indirect [Mass or moles/Vol] 0.5 mg/dL Normal 0.1-0.9 [facility] Comment on above: Performed By: #### 2 [id number] #### [facility] [address] [place] [address] Globulin (S) [Mass/Vol] 3.9 g/dL Normal 1.4-4.0 [facility] Comment on above: Performed By: #### 2 [id number] #### [facility] [address] [place] [address] Protein [Mass/Vol] 7.9 g/dL High 6.0-7.8 [facility] Comment on above: Performed By: #### 2 [id number] #### [facility] [address] [place] [address] Lactic Acidon 10-12-2024 Lactic Acid Lvl 1.3 mmol/L Normal 0.5-2.2 [facility] Comment on above: Performed By: #### 2 [id number] #### [facility] [address] [place] [address] Lipase Levelon 10-12-2024 Lipase [Catalytic activity/Vol] 3 U/L Low 13-58 [facility] Comment on above: Performed By: #### 2 [id number] #### [facility] [address] [place] [address] No Panel InformationOrdered By: Bing Delgadillo on 10-12-2024 Blood Culture Charcoal Staphylococcus species coagulase negative In 2 of 2 blood culture bottles drawn. Isolated from aerobic and anaerobic bottles Preliminary gram stain of gram positive cocci in clusters Result called to Dr. Low by and results read back for confirmation on 10/14/2024 08:06:24 [facility] SEROLOGYOrdered By: Tressa clarke on 10-12-2024 HCG.beta subunit (U) [Moles/Vol] Negative Normal [facility] Man Sero U BetaHcg Qualon 10-12-2024 HCG.beta subunit (U) [Moles/Vol] Negative Normal [facility] Comment on above: Performed By: #### 2 [id number] #### [facility] [address] [place] [address] UA with Cult Rflxon 10-13-19 25 Bacteria Auto Ql (U) Trace Normal Trace Fish [facility] Comment on above: Performed By: #### 4 [id number] #### [facility] [address] [place] [address] Bilirubin Ql (U) Negative Normal Negative [facility] Comment on above: Performed By: #### 4 [id number] #### [facility] [address] [place] [address] Clarity (U) Clear Normal Clear [facility] Comment on above: Performed By: #### 4 [id number] #### [facility] [address] [place] [address] Color (U) Light-Yellow Normal Yellow [facility] Comment on above: Result Comment: Micr oscopic readings are only performed on those samples that meet specific criteria set forth by [facility]. Performed By: #### 4 [id number] #### [facility] [address] [place] [address] Crystals.amorphous Computer assisted Ql (U) Present Abnormal [facility] Comment on above: Performed By: #### 4 [id number] #### [facility] [address] [place] [address] Epithelial cells.squamous Auto (Urine sed) [#/Area] 0-2 Invalid Interpretation Code [facility] Comment on above: Performed By: #### 4 [id number] #### [facility] [address] [place] [address] Glucose Ql (U) Negative Normal Negative [facility] Comment on above: Performed By: #### 4 [id number] #### [facility] [address] [place] [address] Hemoglobin Auto test strip (U) [Mass/Vol] Trace Abnormal Negative [facility] Comment on above: Performed By: #### 4 [id number] #### [facility] [address] [place] [address] Ketones Auto test strip Ql (U) Trace Abnormal Negative [facility] Comment on above: Performed By: #### 4 [id number] #### [facility] [address] [place] [address] Leukocyte esterase Auto test strip Ql (U) 250 Elda/uL Abnormal Negative [facility] Comment on above: Performed By: #### 4 [id number] #### [facility] [address] [place] [address] Mucus Auto Ql (U) Negative Normal Negative [facility] Comment on above: Performed By: #### 4 [id number] #### [facility] [address] [place] [address] Nitrite Auto test strip Ql (U) Negative Normal Negative [facility] Comment on above: Performed By: #### 4 [id number] #### [facility] [address] [place] [address] pH (U) 6.0 [pH] Invalid Interpretation Code 5.0-9.0 [facility] Comment on above: Performed By: #### 4 [id number] #### [facility] [address] [place] [address] Protein Ql (U) Trace Abnormal Negative [facility] Comment on above: Performed By: #### 4 [id number] #### [facility] [address] [place] [address] RBC Ql (U) 0-3 Normal 0-3 [facility] Comment on above: Performed By: #### 4 [id number] #### [facility] [address] [place] [address] Specific gravity (U) [Rel density] 1.009 Invalid Interpretation Code 1.005-1.030 [facility] Comment on above: Performed By: #### 4 [id number] #### [facility] [address] [place] [address] Urobilinogen (U) [Mass/Vol] Negative Normal Negative [facility] Comment on above: Performed By: #### 4 [id number] #### [facility] [address] [place] [address] WBC Auto (Urine sed) [#/Area] 31-75 Abnormal 0-5 [facility] Comment on above: Performed By: #### 4 [id number] #### [facility] [address] [place] [address] Type of Urine collection method Clean Catch Normal [facility] Comment on above: Performed By: #### 4 [id number] #### [facility] [address] [place] [address] URINALYSISOrdered By: SYSTEM SYSTEM on 10-12-2024 Bacteria Auto Ql (U) Trace /HPF Normal Trace/HPF [facility] UA Auto SS Bilirubin Ql (U) Negative Normal Negativemg/ d L [facility] UA Auto SS Clarity (U) Clear (10/12/24 10:56 AM) Normal Clear [facility] UA Auto SS Color (U) Light-Yellow 1 (10/12/24 10:56 AM) Normal Yellow [facility] UA Auto SS Comment on above: Interpretive Data: M icroscopic readings are only performed on those samples that meet specific criteria set forth by [facility]. Crystals.amorphous Computer assisted Ql (U) Present graded/HPF Invalid Interpretation Code [facility] UA Auto SS Epithelial cells.squamous Auto (Urine sed) [#/Area] 0-2 graded/HPF Invalid Interpretation Code [facility] UA Auto SS Glucose Ql (U) Negative Normal Negativemg/d L [facility] UA Auto SS Hemoglobin Auto test strip (U) [Mass/Vol] Trace mg/dL Invalid Interpretation Code Negativemg/d L [facility] UA Auto SS Ketones Auto test strip Ql (U) Trace mg/dL Invalid Interpretation Code Negativemg/d L [facility] UA Auto SS Leukocyte esterase Auto test strip Ql (U) 250 Elda/uL Elda/uL Invalid Interpretation Code NegativeLeu/ uL [facility] UA Auto SS Mucus Auto Ql (U) Negative Normal Negativegr ad ed/LPF [facility] UA Auto SS Nitrite Auto test strip Ql (U) Negative Normal Negativemg/d L [facility] UA Auto SS pH (U) 6.0 *NA* (10/12/24 10:56 AM) Invalid Interpretation Code 5.0 - 9.0 [facility] UA Auto SS Protein Ql (U) Trace mg/dL Invalid Interpretation Code Negativemg/d L [facility] UA Auto SS RBC Ql (U) 0-3 graded/HPF Normal 0-3graded/HP F [facility] UA Auto SS Specific gravity (U) [Rel density] 1.009 *NA* (10/12/24 10:56 AM) Invalid Interpretation Code 1.005 - 1.030 [facility] UA Auto SS Urobilinogen (U) [Mass/Vol] Negative Normal Negativemg/d L [facility] UA Auto SS WBC Auto (Urine sed) [#/Area] 31-75 graded/HPF Invalid Interpretation Code 0-5graded/HP F [facility] UA Auto SS URINALYSISOrdered By: Bing Aviles on 10-12-2024 UA Spec Desc Clean Catch (10/12/24 10:56 AM) Normal [facility] UA Auto SS cefTRIAXone EDGAR [Susc]Ordere d By: Bing Delgadillo on 10-12-2024 Escherichia coli Escherichia coli Fi [facility] eGFRon 10-12-2024 eGFR 100 mL/min/1.73 m2 Normal >=59 [facility] Comment on above: Performed By: #### 1 [id number] #### [facility] [address] [place] [address] IGP,APTIMA HPV,AGE GDLNon AGE GDLN ACOG TESTING Note . [facility] Comment on above: TESTS RESULT FLAG UN ITS REF RANGE LAB Clinician Provided Cytology Information Source.............Cervix;Endocervix No. of containers..01 ThinPrep Vial Age Algo ACOG Pily... - 01 FLAG LEGEND: L-Low Normal,H-High Normal,LL-Alert Low,HH-Alert High <-Panic Low,>-Panic High,A-Abnormal,AA-Critical Abnormal Performed at: 01 =G [address] [id number] Angie Howell MD, HPV APTIMA Positive Abnormal Negative [facility] Comment on above: This nucleic acid am plification test detects fourteen high- risk HPV types (16,18,31,33,35,39,45,51,52,56,58,59,66,68) without differentiation. HPV GENOTYPE 16 Negative Negative [facility] HPV GENOTYPE 18,45 Negative Negative [facility] Comment on above: Performed at: =G - [facility] [address] [id number] Service Order Dispatcher Chief: Angie Howell MD, Phone: [phone] Performed at: WB - [facility] [address] [id number] Service Order Dispatcher Chief: Angie Howell MD, Phone: [phone] IGP, APTIMA HPV, RFX 16/18,45 Note . [facility] Comment on above: TESTS RESULT FLAG UN ITS REF RANGE LAB DIAGNOSIS: 02 NEGATIVE FOR INTRAEPITHELIAL LESION OR MALIGNANCY. THIS SPECIMEN WAS RESCREENED PART OF OUR [employer] PROGRAM. Specimen adequacy: 02 Satisfactory for evaluation. Endocervical and/or squamous metaplastic cells (endocervical component) are present. Performed by: 03 Keyanna Hoff, Civil Engineering Director (ASCP) QC reviewed by: 02 Karey Rodgers Civil Engineering Director (ASC) . 02 Note: Note 02 The Pap smear is a screening test designed to aid in the detection of premalignant and malignant conditions of the uterine cervix. It is not a diagnostic procedure and should not be used as the sole means of detecting cervical cancer. Both false-positive and false-negative reports do occur. Test Methodology: Note 02 This liquid based ThinPrep(R) pap test was screened with the use of an image guided system. HPV Genotype Reflex Note 02 Criteria met, see HPV Genotype results. FLAG LEGEND: L-Low Normal,H-High Normal,LL-Alert Low,HH-Alert High <-Panic Low,>-Panic High,A-Abnormal,AA-Critical Abnormal Performed at: 02 WB [facility] [address] [place] [address] Angie Howell MD, 03 KWCYT [facility] [address] [place] [phone] Kushal Cotto MD, Interpretation and review of laboratory results Abnormal [facility] BRUSH-SPATULA CERVIX ENDOCERVIX CLINISYNC [facility] Lactate, Sepsison 05-10-2024 Interpretation and review of laboratory results Abnormal [facility] Lactate, Sepsis 4.2 mmol/L Critically high 0.5 - 2.0 mmol/L [facility] Comment on above: Critical value(s) ca lled and RB/V to _Bella Weight [employer] GUIDE [employer]SEM[employer]ER 05/10/2024 01:11:25 EDT [id number] [facility] CBC with Auto Differentialon 05-09-2024 Basophils (Bld) [#/Vol] 0.0 10*3/uL [facility] Basophils/100 WBC (Bld) 0.2 % 0.0 - 2.0 % [facility] Eosinophils (Bld) [#/Vol] 0.4 10*3/uL [facility] Eosinophils/100 WBC (Bld) 2.5 % 0.0 - 7.0 % [facility] Erythrocyte distribution width (RBC) [Ratio] 15.6 % 10.0 - 17.0 % [facility] Hematocrit (Bld) [Volume fraction] 35.6 % 34.0 - 47.0 % [facility] Hemoglobin (Bld) [Mass/Vol] 11.0 g/dL Low 11.5 - 15.7 g/dL [facility] Immature Grans (Abs) 0.02 [facility] Immature granulocytes/100 WBC (Bld) 0.1 % 0.0 - 0.6 % [facility] Interpretation and review of laboratory results Abnormal [facility] Lymphocytes Auto (Unsp spec) [#/Vol] 1.4 10*3/uL [facility] Lymphocytes/100 WBC (Bld) 8.3 % Low 15.0 - 45.0 % [facility] MCH (RBC) [Entitic mass] 26.1 pg Low 27.0 - 34.5 pg [facility] MCHC (RBC) [Mass/Vol] 30.9 g/dL 30.0 - 36.0 g/dL [facility] MCV (RBC) [Entitic vol] 84.6 fL 81.0 - 99.0 fL [facility] Monocytes (Bld) [#/Vol] 0.9 10*3/uL [facility] Monocytes/100 WBC (Bld) 5.3 % 4.0 - 12.0 % [facility] Neutrophils (Bld) [#/Vol] 13.8 10*3/uL High [facility] Neutrophils/100 WBC (Bld) 83.6 % High 42.0 - 74.0 % [facility] Platelet mean volume (Bld) [Entitic vol] 10.0 fL 7.0 - 12.2 fL [facility] Platelets (Bld) [#/Vol] 319 10*3/uL [facility] RBC (Bld) [#/Vol] 4.21 10*6/uL [facility] WBC (Bld) [#/Vol] 16.5 10*3/uL High [facility] COVID-19 & Influenza Combo ( [facility])on 05-09-2024 FLUAV RNA OLGA+probe Ql (Resp) Not detected Not Detected [facility] FLUBV RNA OLGA+probe Ql (Resp) Not detected Not Detected [facility] SARS-CoV-2 (COVID-19) RNA OLGA+probe Ql (Resp) Not detected Not Detected [facility] Comment on above: The bhavana SARS-CoV-2 & Influenza A/B Nucleic acid test for use on the bhavana Keesha System (bhavana SARS-CoV-2 & Influenza A/B) is an automated multiplex real-time RT-PCR assay intended for the simultaneous rapid in vitro qualitative detection and differentiation of SARS-CoV-2, influenza A, and influenza B virus RNA in healthcare provider-collected nasopharyngeal and nasal swabs, from individuals suspected of respiratory viral infection consistent with COVID-19 by their healthcare provider. Bhavana SARS-CoV-2 & Influenza A/B is intended for use in the simultaneous rapid in vitro detection and differentiation of SARS-CoV-2, influenza A virus, and influenza B virus nucleic acids in clinical specimens and is not intended to detect influenza C virus. SARS-CoV-2, influenza A and influenza B viral RNA is generally detectable in respiratory specimens during the acute phase of infection. Positive results are indicative of active infection but do not rule out bacterial infection or co-infection with other pathogens not detected by the test. Clinical correlation with patient history and other diagnostic information is necessary to determine patient infection status. The agent detected may not be the definite cause of disease. Negative results do not preclude SARS-CoV-2, influenza A and/or influenza B infection and should not be used as the sole basis for diagnosis, treatment or other patient management decisions. Negative results must be combined with clinical observations, patient history, and/or epidemiological information. The bhavana SARS-CoV-2 & Influenza A/B Nucleic acid test is only for use under the Food and Drug Administration s Emergency Use Authorization. SARS-CoV-2 (COVID-19) RNA OLGA+probe Ql (Unsp spec) Is this test for diagnosis or screening?->Diagnosis of ill patient Symptomatic for COVID-19 as defined by CDC?->Yes Hospitalized for COVID-19?->No Admitted to ICU for COVID-19?->No [facility] Comprehensive Metabolic Pane kota 05-09-2024 Albumin [Mass/Vol] 4.1 g/dL 3.5 - 5.2 g/dL [facility] Albumin/Globulin [Mass ratio] 1.00 {ratio} 1.00 - 2.70 [facility] ALP [Catalytic activity/Vol] 99 U/L [facility] ALT [Catalytic activity/Vol] 11 U/L [facility] Anion gap [Moles/Vol] 13 mmol/L 2 - 17 mmol/L [facility] AST [Catalytic activity/Vol] 13 U/L [facility] Bilirubin [Mass/Vol] 0.30 mg/dL 0.00 - 1.20 mg/dL [facility] Calcium [Mass/Vol] 9.1 mg/dL 8.5 - 10. 7 mg/dL [facility] Chloride [Moles/Vol] 105 mmol/L 98 - 10 7 mmol/L [facility] Creatinine [Mass/Vol] 0.7 mg/dL 0.5 - 1.0 mg/dL [facility] Est, Glom Filt Rate 119 - PINF [facility] Comment on above: VERIFIED by Discern Expert. GFR Interpretation: % OF KIDNEY GFR STAGE FUNCTION > 90 Normal kidney function STAGE 1 90-100% 89 to 60 Mild loss of kidney function STAGE 2 80-60% 59 to 45 Mild to moderate loss of kidney function STAGE 3a 59-45% 44 to 30 Moderate to severe loss of kidney function STAGE 3b 44-30% 29 to 15 Severe loss of kidney function STAGE 4 29-15% < 15 Kidney failure STAGE 5 <15% Modified from National [employer] GFR Calculation performed using the CKD-EPI 2020 equation developed for use with IDMS traceable creatinine methods and is the calculation recommended by the National Kidney Foundation for estimating GFR in adults. Globulin (S) [Mass/Vol] 3.0 g/dL 1.9 - 4.4 g/dL [facility] Glucose [Mass/Vol] 121 mg/dL High 70 - 99 mg/dL [facility] HCO3 (P) [Moles/Vol] 21 mmol/L Low 22 - 29 mmol/L [facility] Interpretation and review of laboratory results Abnormal [facility] Osmolality Calc [Osmolality] 276 [facility] Potassium [Moles/Vol] 3.7 mmol/L 3.5 - 5.3 mmol/L [facility] Protein [Mass/Vol] 7.1 g/dL 5.7 - 8.3 g/dL [facility] Sodium [Moles/Vol] 139 mmol/L 135 - 145 mmol/L [facility] Urea nitrogen [Mass/Vol] 6 mg/dL 6 - 20 mg/dL [facility] Lactate, Sepsison 05-09-2024 Interpretation and review of laboratory results Abnormal [facility] Lactate, Sepsis 3.7 mmol/L Critically high 0.5 - 2.0 mmol/L [facility] Comment on above: Critical Result(s) C alled and R/V to: Ezequiel Devi RN ED 05/09/2024 22:32:59 EDT by [id number] [facility] Magnesiumon 05-09-2024 Magnesium [Mass/Vol] 2.1 mg/dL 1.6 - 2 .6 mg/dL [facility] No Panel Informationon 05-09 [facility] POC Urine Qualon 1 07-09-2023 Preg Test, Ur Negative Negative [facility] Comment on above: - ED [facility] POC Urine QualOrde red By: Brigette Weight on 05-09-2024 Beta HCG ( test) Ql (U) Negative Negative [facility] Lot Number [id number] [facility] Negative QC Pass/Fail Pass [facility] Positive QC Pass/Fail Pass [facility] Portable XR Chest AP single viewon 05-09-2024 No acute process identified. RUST NARINDER CHEST: AP (or PA), 05/09/2024 9:29 PM INDICATION: Shortness of Breath COMPARISON: None FINDINGS: Cardiac silhouette is not enlarged. No pulmonary vascular congestion appreciated. No pulmonary edema or pneumonia. No pleural fluid. RUST Avinash West MD - 05/09/2024 CHEST: AP (or PA), 05/09/2024 9:29 PM INDICATION: Shortness of Breath COMPARISON: None FINDINGS: Cardiac silhouette is not enlarged. No pulmonary vascular congestion appreciated. No pulmonary edema or pneumonia. No pleural fluid. IMPRESSION: No acute process identified. [facility] Work Phone: Radiology Study observation (narrative) [facility] Work Phone: Portable XR Chest AP single viewOrdered By: Avinash Mccall on 05-09-2024 [facility] Work Phone: Procalcitoninon 05-09-2024 Procalcitonin 0.14 ng/mL NINF - 0.24 ng/mL [facility] Comment on above: PROCALCITONIN INTERP RETATION (based on clinical content from www.Collect.ViewsIQ/asp): Normal: <0.25 ng/mL (infants >72 hours - adults) Suspected Lower Respiratory Tract Infection: 0.1 - 0.24 ng/mL - Low likelihood for bacterial infection; Antibiotics discouraged. >=0.25 ng/mL - Increased likelihood bacterial infection; Antibiotics encouraged. Suspected Sepsis: Strongly consider initiating antibiotics in all unstable patients. 0.1 - 0.5 ng/mL - Low likelihood for sepsis; Antibiotics discouraged. >0.5 ng/mL - Increased likelihood sepsis; Antibiotics encouraged. >2.0 ng/mL - High risk of sepsis/septic shock; Antibiotics strongly encouraged. Decisions on antibiotic use should not be based solely on procalcitonin levels. If antibiotics are administered, repeat procalcitonin testing should be obtained every 2-3 days to consider early antibiotic cessation. PCT is a dynamic biomarker and most useful when trends are analyzed over time in accompaniment with other clinical data. Interpretation should be based upon clinical context and algorithms available on the [employer]ward[employer] Website (www.Collect.ViewsIQ/asp). [facility] Troponinon 05-09-2024 Troponin, High Sensitivity ng/L 0 - 14 ng/L [facility] Comment on above: The immunoassay is i ntended to aid in the diagnosis of myocardial infarction. [facility] Urinalysis W/ Rflx Microscop icon 05-09-2024 Appearance (U) Clear [facility] Bilirubin (U) [Mass/Vol] Negative Negative [facility] Blood, Urine Negative Negative [facility] Color (U) Yellow [facility] Glucose Auto test strip (U) [Mass/Vol] Negative Negative [facility] Interpretation and review of laboratory results Abnormal [facility] Ketones (U) [Mass/Vol] Negative Negative Ro per [facility] Leukocyte esterase Test strip Ql (U) Negative Negative [facility] Nitrite Auto test strip Ql (U) Negative Negative [facility] pH (U) 6.0 [pH] 4.5 - 8.0 [facility] Protein Ql (U) Trace Negative [facility] Specific gravity (U) [Rel density] Abnormal 1.003 - 1.035 [facility] Urobilinogen Qn (U) 0.2 {Bee'U}/dL 1 - PINF EU/dL [facility] GLYCOHEMOGLOBIN A1Con 2022 ADA RECOMMENDATION SEE BELOW Normal [facility] Comment on above: Result Comment: ADA RECOMMENDED LIMIT 4.0 - 6.0 ADA THERAPEUTIC TARGET < 7.0 ACTION SUGGESTED > 7.0 Performed By: #### A 1C #### [facility] [address] [place] [address] Dr. Kavon Cardenas Glucose [Mass/Vol] 103 mg/dL Normal [facility] Comment on above: Performed By: #### A 1C #### [facility] [address] [address] [address] Kavon Cardenas HbA1c (Bld) [Mass fraction] 5.2 % Normal 4.5-6.2 [facility] Comment on above: Performed By: #### A 1C #### [facility] [address] [place] [address] Dr. Kavon Cardenas GTT 3 HR PREGon 11-01-2022 Glucose [Mass/Vol] 94 mg/dL Normal 74-106 [facility] Comment on above: Performed By: #### C ARDIGM #### [facility] [address] [address] [address] Kavon Cardenas CBC AUTO DIFFon 10-25-2022 BASO # 0.1 103/ul Normal 0.0-0.1 [facility] Comment on above: Performed By: #### C BC #### [facility] [address] [address] [address] Kavon Cardenas Basophils/100 WBC (Bld) 0.3 % Normal 0.2-2.0 [facility] Comment on above: Performed By: #### C BC #### [facility] [address] [place] [address] Dr. Kavon Cardenas EO # 0.2 103/ul Normal 0.0-0.7 [facility] Comment on above: Performed By: #### C BC #### [facility] [address] [place] [address] Dr. Kavon Cardenas Eosinophils/100 WBC (Bld) 1.3 % Normal 0.9-7.0 [facility] Comment on above: Performed By: #### C BC #### [facility] [address] [place] [address] Dr. Kavon Cardenas Erythrocyte distribution width (RBC) [Ratio] 14.5 % Normal 11.0-15.0 [facility] Comment on above: Performed By: #### C BC #### [facility] [address] [place] [address] Dr. Kavon Cardenas Hematocrit (Bld) [Volume fraction] 35.4 % Critically low 36.0-48.0 [facility] Comment on above: Performed By: #### C BC #### [facility] [address] [place] [address] Dr. Kavon Cardenas Hemoglobin (Bld) [Mass/Vol] 11.4 g/dL Critically low 12.0-16.0 [facility] Comment on above: Performed By: #### C BC #### [facility] [address] [place] [address] Dr. Kavon Cardenas IG # 0.19 10e3/ul Critically high 0.00-0.03 [facility] Comment on above: Performed By: #### C BC #### [facility] [address] [place] [address] Dr. Kavon Cardenas IG % 1.1 % Critically high 0.0-0.5 [facility] Comment on above: Performed By: #### C BC #### [facility] [address] [place] [address] Dr. Kavon Cardenas LYMPH # 3.1 103/ul Normal 1.2-3.8 [facility] Comment on above: Performed By: #### C BC #### [facility] [address] [place] [address] Dr. Kavon Cardenas Lymphocytes/100 WBC (Bld) 17.8 % Critically low 20.5-60.0 [facility] Comment on above: Performed By: #### C BC #### [facility] [address] [place] [address] Dr. Kavon Cardenas MANUAL DIFF REQ NO Normal [facility] Comment on above: Performed By: #### C BC #### [facility] [address] [place] [address] Dr. Kavon Cardenas MCH (RBC) [Entitic mass] 28.6 pg Normal 26.7-34.0 [facility] Comment on above: Performed By: #### C BC #### [facility] [address] [place] [address] Dr. Kavon Cardenas MCHC (RBC) [Mass/Vol] 32.2 g/dL Normal 29.9-35.2 [facility] Comment on above: Performed By: #### C BC #### [facility] [address] [place] [address] Dr. Kavon Cardenas MCV (RBC) [Entitic vol] 88.7 fL Normal 81.0-99.0 [facility] Comment on above: Performed By: #### C BC #### [facility] [address] [place] [address] Dr. Kavon Cardenas MONO # 0.6 103/ul Normal 0.3-0.8 [facility] Comment on above: Performed By: #### C BC #### [facility] [address] [address] [address] Kavon Cardenas Monocytes/100 WBC (Bld) 3.6 % Normal 1.7-12.0 [facility] Comment on above: Performed By: #### C BC #### [facility] [address] [place] [address] Dr[address] Kavon Cardenas NEUT # 13.0 103/ul Critically high 1.4-6.5 [facility] Comment on above: Performed By: #### C BC #### [facility] [address] [address] [address] Kavon Cardenas Neutrophils/100 WBC (Bld) 75.9 % Critically high 43.0-75.0 [facility] Comment on above: Performed By: #### C BC #### [facility] [address] [place] [address] Dr. Kavon Cardenas Platelet mean volume (Bld) [Entitic vol] 10.4 fL Normal 9.5-13.5 [facility] Comment on above: Performed By: #### C BC #### [facility] [address] [place] [address] Dr. Kavon Cardenas PLT 308 103/ul Normal 150-450 [facility] Comment on above: Performed By: #### C BC #### [facility] [address] [place] [address] Dr. Kavon Cardenas RBC 3.99 106/ul Critically low 4.20-5.40 [facility] Comment on above: Performed By: #### C BC #### [facility] [address] [place] [address] Dr. Kavon Cardenas WBC 17.1 103/ul Critically high 4.0-11.0 [facility] Comment on above: Performed By: #### C BC #### [facility] [address] [place] [address] Dr. Kavon Cardenas GLUCOSE - 1HRon 10-25-2022 Glucose [Mass/Vol] 139 mg/dL Critically high 74-106 [facility] Comment on above: Performed By: #### F VPCR #### [facility] [address] [place] [address] Dr. 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 Kavon Cardenas Clarity (U) CLEAR Normal CLEAR [facility] Comment on above: Performed By: #### A 1C #### [facility] [address] [place] [address] Dr. Kavon Cardenas Color (U) LT. YELLOW Normal YELLOW [facility] Comment on above: Performed By: #### A 1C #### [facility] [address] [place] [address] Dr. Kavon Cardenas Glucose Ql (U) Negative Normal NEGATIVE [facility] Comment on above: Performed By: #### A 1C #### [facility] [address] [place] [address] Dr. Kavon Cardenas Hemoglobin Ql (U) Negative Normal NEGATIVE [facility] Comment on above: Performed By: #### A 1C #### [facility] [address] [place] [address] Dr. Kavon Cardenas Ketones Ql (U) Negative Normal NEGATIVE [facility] Comment on above: Performed By: #### A 1C #### [facility] [address] [place] [address] Dr. Kavon Cardenas LEUKOCYTES Negative Normal NEGATIVE [facility] Comment on above: Performed By: #### A 1C #### [facility] [address] [place] [address] Dr. Kavon Cardenas Nitrite Ql (U) Negative Normal NEGATIVE [facility] Comment on above: Performed By: #### A 1C #### [facility] [address] [place] [address] Dr. Kavon Cardenas pH (U) 5.5 [pH] Normal 5-9 [facility] Comment on above: Performed By: #### A 1C #### [facility] [address] [place] [address] Dr. Kavon Cardenas SPEC GRAVITY >=1.030 Abnormal 1.005-<=1.02 5 [facility] Comment on above: Performed By: #### A 1C #### [facility] [address] [place] [address] Dr. Kavon Cardenas UA PROTEIN Negative Normal NEGATIVE/ TRACE [facility] Comment on above: Performed By: #### A 1C #### [facility] [address] [address] [address] Kavon Cardenas UR MICRO IND NOT INDICATED Normal [facility] Comment on above: Performed By: #### A 1C #### [facility] [address] [address] [address] Kavon Cardenas Urobilinogen Qn (U) 0.2 {Bee'U}/dL Normal 0.2 - 1. 0 [facility] Comment on above: Performed By: #### A 1C #### [facility] [address] [place] [address] Dr. Kavon Cardenas Smear to Pathologiston 10-13 Smear to Pathologist ELECTRONICALLY SIGNED. LUCY ACOSTA M.D. Normal [facility] Comment on above: Performed By: #### P B, PATH, CDP, RETCT #### [facility] [address] [id number] Service Order Dispatcher Chief: Miguel Betancourt MD Lead, Bloodon 10-12-2022 Lead, Blood 11 ug/dL High 0-4 [facility] Comment on above: Result Comment: Reference [...] Exposure, [employer], 2007. Contact your [facility] Department of [facility] and/or applicable regulatory agency for specific guidance on medical management recommendations. Performed By: #### P B, PATH, CDP, RETCT #### [facility] [place] [address] Service Order Dispatcher Chief: Miguel Betancourt MD CBC with Auto Differentialon 10-11-2022 Absolute Eos # 0.27 [facility] Absolute Immature Granulocyte 0.18 [facility] Absolute Lymph # 2.82 [facility] Absolute [place] # 0.95 [facility] [...] 0.0 0.0 per 100 WBC [facility] Platelet distribution width (Bld) [Ratio] 14.6 % High 11.8 - 14.4 % [facility] Platelet mean volume (Bld) [Entitic vol] 10.5 fL 8.1 - 13.5 fL [facility] Platelets (Bld) [#/Vol] 294 10*3/uL [facility] RBC (Bld) [#/Vol] 4.00 10*6/uL 3.95 - 5.1 1 m/uL [facility] RBC (Bld) [#/Vol] ANISOCYTOSIS PRESENT [facility] Segmented neutrophils/100 WBC (Bld) 72 % High 36 - 65 % [facility] Segs Absolute 10.78 High [facility] WBC (Bld) [#/Vol] 15.0 10*3/uL High [facility] CBC with Diffon 10-11-2022 Abs. Basophil 0.04 k/uL Normal 0.00-0.20 [facility] Comment on above: Performed By: #### P HARMONY Palmer CDP, RETCT #### [employer] [address] [place] [address] Service Order Dispatcher Chief: Miguel Betancourt MD Abs.Imm.Granulocyte 0.18 k/uL Normal 0.00-0.30 [facility] Comment on above: Performed By: #### P HARMONY Palmer CDP, RETCT #### [facility] [address] [place] [address] Service Order Dispatcher Chief: Miguel Betancourt MD Abs.Neutrophil (Seg) 10.78 k/uL High 1.50-8.10 [facility] Comment on above: Performed By: #### P HARMONY Palmer CDP, RETCT #### [facility] [address] [place] [address] Service Order Dispatcher Chief: Miguel Betancourt MD Basophils/100 WBC (Bld) 0 % Normal 0-2 [facility] Comment on above: Performed By: #### P B, PATH, CDP, RETCT #### [facility] [employer] [address] [place] [address] Service Order Dispatcher Chief: Migeul Betancourt MD Eosinophils (Bld) [#/Vol] 0.27 10*3/uL Normal 0.00-0.44 [facility] Comment on above: Performed By: #### P B, PATH, CDP, RETCT #### [facility] [employer] [address] [place] [address] Service Order Dispatcher Chief: Miguel Betancourt MD Eosinophils/100 WBC (Bld) 2 % Normal 1-4 [facility] Comment on above: Performed By: #### P B, PATH, CDP, RETCT #### [facility] [employer] [address] [place] [address] Service Order Dispatcher Chief: Miguel Betancourt MD Erythrocyte distribution width (RBC) [Ratio] 14.6 % High 11.8-14.4 [facility] Comment on above: Performed By: #### P B, PATH, CDP, RETCT #### [place] [address] Service Order Dispatcher Chief: Miguel Betancourt MD Hematocrit (Bld) [Volume fraction] 35.9 % Low 36.3-47.1 [facility] Comment on above: Performed By: #### P B, PATH, CDP, RETCT #### [facility] [employer] [address] [place] [address] Service Order Dispatcher Chief: Miguel Betancourt MD Hemoglobin (Bld) [Mass/Vol] 11.6 g/dL Low 11.9-15.1 [facility] Comment on above: Performed By: #### P B, PATH, CDP, RETCT #### [facility] [employer] [address] [place] [address] Service Order Dispatcher Chief: Miguel Betancourt MD Immature granulocytes/100 WBC (Bld) 1 % High 0 [facility] Comment on above: Performed By: #### P B, PATH, CDP, RETCT #### [place] [address] Service Order Dispatcher Chief: Miguel Betancourt MD Lymphocytes (Bld) [#/Vol] 2.82 10*3/uL Normal 1.10-3.70 [facility] Comment on above: Performed By: #### P B, PATH, CDP, RETCT #### [place] [address] Service Order Dispatcher Chief: Miguel Betancourt MD Lymphocytes/100 WBC (Bld) 19 % Low 24-43 [facility] Comment on above: Performed By: #### P B, PATH, CDP, RETCT #### [place] [address] Service Order Dispatcher Chief: Miguel Betancourt MD MCH (RBC) [Entitic mass] 29.0 pg Normal 25.2-33.5 [facility] Comment on above: Performed By: #### P B, PATH, CDP, RETCT #### [place] [address] Service Order Dispatcher Chief: Miguel Betancourt MD MCHC (RBC) [Mass/Vol] 32.3 g/dL Normal 28.4-34.8 [facility] Comment on above: Performed By: #### P B, PATH, CDP, RETCT #### [place] [address] Service Order Dispatcher Chief: Miguel Betancourt MD MCV (RBC) [Entitic vol] 89.8 fL Normal 82.6-102.9 [facility] Comment on above: Performed By: #### P B, PATH, CDP, RETCT #### [address] [address] Service Order Dispatcher Chief: Miguel Betancourt MD Monocytes (Bld) [#/Vol] 0.95 10*3/uL Normal 0.10-1.20 [facility] Comment on above: Performed By: #### P B, PATH, CDP, RETCT #### [address] [address] Service Order Dispatcher Chief: Miguel Betancourt MD Monocytes/100 WBC (Bld) 6 % Normal 3-12 [facility] Comment on above: Performed By: #### P B, PATH, CDP, RETCT #### [address] [address] Service Order Dispatcher Chief: Miguel Betancourt MD Neutrophil (Seg) 72 % High 36-65 [facility] Comment on above: Performed By: #### P B, PATH, CDP, RETCT #### [address] [address] Service Order Dispatcher Chief: Miguel Betancourt MD NRBC Automated 0.0 per 100 WBC Normal 0.0 [facility] Comment on above: Performed By: #### P B, PATH, CDP, RETCT #### [address] [address] Service Order Dispatcher Chief: Miguel Betancourt MD Platelet mean volume (Bld) [Entitic vol] 10.5 fL Normal 8.1-13.5 [facility] Comment on above: Performed By: #### P B, PATH, CDP, RETCT #### [address] [address] Service Order Dispatcher Chief: Miguel Betancourt MD Platelets (Bld) [#/Vol] 294 10*3/uL Normal 138-453 [facility] Comment on above: Performed By: #### P B, PATH, CDP, RETCT #### [address] [address] Service Order Dispatcher Chief: Miguel Betancourt MD RBC (Bld) [#/Vol] 4.00 10*6/uL Normal 3.95-5.11 [facility] Comment on above: Performed By: #### P B, PATH, CDP, RETCT #### [address] [address] Service Order Dispatcher Chief: Miguel Betancourt MD RBC morphology finding Nom (Bld) ANISOCYTOSIS PRESENT Normal [facility] Comment on above: Performed By: #### P B, PATH, CDP, RETCT #### [address] [address] Service Order Dispatcher Chief: Miguel Betancourt MD WBC (Bld) [#/Vol] 15.0 10*3/uL High 3.5-11.3 [facility] Comment on above: Performed By: #### P B, PATH, CDP, RETCT #### [place] [address] Service Order Dispatcher Chief: Miguel Betancourt MD No Panel Informationon 10-11 Interpretation and review of laboratory results Abnormal [facility] Retic Counton 10-11-2022 Absolute Retic 0.090 M/uL High 0.030-0.080 [facility] Comment on above: Performed By: #### P B, PATH, CDP, RETCT #### [address] [address] Service Order Dispatcher Chief: Miguel Betancourt MD IRF 24.100 % High 2.7-18.3 [facility] Comment on above: Performed By: #### P B, PATH, CDP, RETCT #### [facility] [employer] [address] [place] [address] Service Order Dispatcher Chief: Miguel Betancourt MD Retic Count 2.2 % High 0.5-1.9 [facility] Comment on above: Performed By: #### P B, PATH, CDP, RETCT #### [facility] [employer] [address] [place] [address] Service Order Dispatcher Chief: Miguel Betancourt MD Retic Hemoglobin 31.8 pg Normal 28.2-35.7 [facility] Comment on above: Performed By: #### P B, PATH, CDP, RETCT #### [facility] [place] [address] Service Order Dispatcher Chief: Miguel Betancourt MD Reticulocyteson 10-11-2022 Absolute Retic # 0.090 High [facility] Immature Retic Fract 24.1 % High 2.7 - 18.3 % [facility] Retic Hemoglobin 31.8 pg 28.2 - 35.7 pg [facility] Reticulocytes/100 RBC (Bld) 2.2 % High 0.5 - 1.9 % [facility] Surgical Pathologyon 023 Surgical Pathology (NOTE) [id number] [facility] CONSULTING PATHOLOGISTS [facility] ANATOMIC PATHOLOGY [address] [place] [id number] SURGICAL PATHOLOGY CONSULTATION Patient Name: DILMA KAUR MR#: [id number] Specimen #[id number] Procedures/Addenda PERIPHERAL BLOOD REPORT Date Ordered: 10/12/2022 Status: Signed Out Date Complete: 10/12/2022 By: Lucy Acosta Date Reported: 10/12/2022 INTERPRETATION Peripheral blood: Slightly normocytic normochromic anemia with minimal anisopoikilocytosis. Leukocytosis with neutrophilia, with an otherwise normal morphology. Platelet morphology is unremarkable. RESULTS-COMMENTS PERIPHERAL BLOOD STUDY CBC: Please see the electronic health record for CBC parameters ([id number], 10/11/2022, 09:56). Note: The electronic health record is reviewed. Lucy Acosta Source: A: Peripheral Blood Normal [facility] Comment on above: Performed By: #### P PPVS #### [facility] [employer] [address] [place] [address] Service Order Dispatcher Chief: Miguel Betancourt MD PAP ACOG PANEL 2: 21 to 29on 09-27-2022 . . Normal [facility] Comment on above: Performed By: #### [id number] #### [facility] [address] [place] [address] Dr. Kavon Cardenas Age Gdln ACOG Testing 21-29 Normal [facility] Comment on above: Performed By: #### 4 [id number] #### [facility] [address] [place] [address] Dr. Kavon Cardenas DIAGNOSIS: Comment Normal [facility] Comment on above: Result Comment: NEGA TIVE FOR INTRAEPITHELIAL LESION OR MALIGNANCY. Performed By: #### 4 [id number] #### [facility] [address] [place] [address] Dr. Kavon Cardenas Methodology: Comment [facility] Comment on above: Result Comment: This liquid based ThinPrep(R) pap test was screened with the use of an image guided system. Performed By: #### 4 [id number] #### [facility] [address] [place] [address] Dr. Kavon Cardenas Note: Comment Normal [facility] Comment on above: Result Comment: The Pap smear is a screening test designed to aid in the detection of premalignant and malignant conditions of the uterine cervix. It is not a diagnostic procedure and should not be used as the sole means of detecting cervical cancer. Both false-positive and false-negative reports do occur. . Performed By: #### 4 [id number] #### [facility] [address] [place] [address] Dr. Kavon Cardenas Performed by: Comment Normal [facility] Comment on above: Result Comment: Garrick Hernandez Civil Engineering Director (ASCP) Performed By: #### 4 [id number] #### [facility] [address] [place] [address] Dr. Kavon Cardenas Reflex Criteria: Comment [facility] Comment on above: Result Comment: The HPV DNA reflex criteria were not met with this specimen result therefore, no HPV testing was performed. . Performed By: #### 4 [id number] #### [facility] [address] [place] [address] Dr. Kavon Cardenas Specimen adequacy: Comment Normal [facility] Comment on above: Result Comment: Sati sfactory for evaluation. No endocervical component is identified. Performed By: #### 4 [id number] #### [facility] [address] [place] [address] Dr. Kavon Cardenas CHLAMYDIA/GONOCOCCUS OLGA (SW AB/URINE/PAPon 09-21-2022 Chlamydia trachomatis, OLGA Negative Normal Negative [facility] Comment on above: Performed By: #### F VPCR #### [facility] [address] [place] [address] Dr. Kavon Cardenas Neisseria gonorrhoeae, OLGA Negative Normal Negative [facility] Comment on above: Performed By: #### F VPCR #### [facility] [address] [place] [address] Dr. Kavon Cardenas VAGINITIS/VAGINOSIS DNA PROB Fidencio 09-21-2022 Jada species Negative Normal Negative [facility] Comment on above: Performed By: #### C ARDIGM #### [facility] [address] [place] [address] Dr. Kavon Cardenas Gardnerella vaginalis Negative Normal Negative [facility] Comment on above: Performed By: #### C ARDIGM #### [facility] [address] [place] [address] Dr. Kavon Cardenas Trichomonas vaginalis Negative Normal Negative [facility] Comment on above: Performed By: #### C ARDIGM #### [facility] [address] [place] [address] Dr. Kavon Cardenas CBC AUTO DIFFon 09-17-2022 BASO # 0.1 103/ul Normal 0.0-0.1 [facility] Comment on above: Performed By: #### C BC #### [facility] [address] [place] [address] Dr. Kavon Cardenas Basophils/100 WBC (Bld) 0.3 % Normal 0.2-2.0 [facility] Comment on above: Performed By: #### C BC #### [facility] [address] [place] [address] Dr. Kavon Cardenas EO # 0.1 103/ul Normal 0.0-0.7 [facility] Comment on above: Performed By: #### C BC #### [facility] [address] [place] [address] Dr. Kavon Cardenas Eosinophils/100 WBC (Bld) 0.6 % Critically low 0.9-7.0 [facility] Comment on above: Performed By: #### C BC #### [facility] [address] [place] [address] Dr. Kavon Cardenas Erythrocyte distribution width (RBC) [Ratio] 14.5 % Normal 11.0-15.0 [facility] Comment on above: Performed By: #### C BC #### [facility] [address] [place] [address] Dr. Kavon Cardenas Hematocrit (Bld) [Volume fraction] 35.2 % Critically low 36.0-48.0 [facility] Comment on above: Performed By: #### C BC #### [facility] [address] [place] [address] Dr. Kavon Cardenas Hemoglobin (Bld) [Mass/Vol] 11.6 g/dL Critically low 12.0-16.0 [facility] Comment on above: Performed By: #### C BC #### [facility] [address] [place] [address] Dr. Kavon Cardenas IG # 0.10 10e3/ul Critically high 0.00-0.03 [facility] Comment on above: Performed By: #### C BC #### [facility] [address] [place] [address] Dr. Kavon Cardenas IG % 0.5 % Normal 0.0-0.5 [facility] Comment on above: Performed By: #### C BC #### [facility] [address] [place] [address] Dr. Kavon Cardenas LYMPH # 1.6 103/ul Normal 1.2-3.8 [facility] Comment on above: Performed By: #### C BC #### [facility] [address] [place] [address] Dr. Kavon Cardenas Lymphocytes/100 WBC (Bld) 8.9 % Critically low 20.5-60.0 [facility] Comment on above: Performed By: #### C BC #### [facility] [address] [address] [address] Kavon Cardenas MANUAL DIFF REQ NO Normal [facility] Comment on above: Performed By: #### C BC #### [facility] [address] [address] [address] Kavon Cardenas MCH (RBC) [Entitic mass] 28.7 pg Normal 26.7-34.0 [facility] Comment on above: Performed By: #### C BC #### [facility] [address] [place] [address] Dr. Kavon Cardenas MCHC (RBC) [Mass/Vol] 33.0 g/dL Normal 29.9-35.2 [facility] Comment on above: Performed By: #### C BC #### [facility] [address] [place] [address] Dr. Kavon Cardenas MCV (RBC) [Entitic vol] 87.1 fL Normal 81.0-99.0 [facility] Comment on above: Performed By: #### C BC #### [facility] [address] [place] [address] Dr. Kavon Cardenas MONO # 0.9 103/ul Critically high 0.3-0.8 [facility] Comment on above: Performed By: #### C BC #### [facility] [address] [place] [address] Dr. Kavon Cardenas Monocytes/100 WBC (Bld) 4.8 % Normal 1.7-12.0 [facility] Comment on above: Performed By: #### C BC #### [facility] [address] [place] [address] Dr. Kavon Cardenas NEUT # 15.5 103/ul Critically high 1.4-6.5 [facility] Comment on above: Performed By: #### C BC #### [facility] [address] [place] [address] Dr. Kavon Cardenas Neutrophils/100 WBC (Bld) 84.9 % Critically high 43.0-75.0 [facility] Comment on above: Performed By: #### C BC #### [facility] [address] [address] [address] Kavon Cardenas Platelet mean volume (Bld) [Entitic vol] 10.4 fL Normal 9.5-13.5 [facility] Comment on above: Performed By: #### C BC #### [facility] [address] [address] [address] Kavon Cardenas PLT 305 103/ul Normal 150-450 [facility] Comment on above: Performed By: #### C BC #### [facility] [address] [address] [address] Kavon Cardenas RBC 4.04 106/ul Critically low 4.20-5.40 [facility] Comment on above: Performed By: #### C BC #### [facility] [address] [address] [address] Kavon Cardenas WBC 18.3 103/ul Critically high 4.0-11.0 [facility] Comment on above: Performed By: #### C BC #### [facility] [address] [address] [address] Kavon Cardenas CTA CHEST WO W [...] by: ALENA ELY Date: 2022-09-17 17:59 Normal [facility]on 09-06 SARS-CoV-2 (COVID-19) RNA OLGA+probe Ql (Unsp spec) Not detected Normal NOT DETECTED [facility] Comment on above: Result Comment: When [...] for this test is supported by the Group Sales Representative of Health and Human Service's declaration that [...] used). Performed By: #### B GLYIGM #### [facility] [address] [place] [address] Dr. Kavon Cardenas ER URINE PROFILEon 3 Bilirubin Ql (U) Negative Normal NEGATIVE [facility] Comment on above: Performed By: #### A 1C #### [facility] [address] [place] [address] Dr. Kavon Cradenas Clarity (U) CLEAR Normal CLEAR [facility] Comment on above: Performed By: #### A 1C #### [facility] [address] [place] [address] Dr. Kavon Cardenas Color (U) YELLOW Normal YELLOW [facility] Comment on above: Performed By: #### A 1C #### [facility] [address] [place] [address] Dr. Kavon Cardenas ERUAHD A micrscopic examination will be performed if indicated. Normal [facility] Comment on above: Performed By: #### A 1C #### [facility] [address] [place] [address] Dr. Kavon Cardenas Glucose Ql (U) Negative Normal NEGATIVE [facility] Comment on above: Performed By: #### A 1C #### [facility] [address] [address] [address] Kavon Cardenas Hemoglobin Ql (U) Negative Normal NEGATIVE [facility] Comment on above: Performed By: #### A 1C #### [facility] [address] [address] [address] Kavon Cardenas Ketones Ql (U) Negative Normal NEGATIVE [facility] Comment on above: Performed By: #### A 1C #### [facility] [address] [place] [address] Dr. Kavon Cardenas LEUKOCYTES Negative Normal NEGATIVE [facility] Comment on above: Performed By: #### A 1C #### [facility] [address] [place] [address] Dr. Kavon Cardenas Nitrite Ql (U) Negative Normal NEGATIVE [facility] Comment on above: Performed By: #### A 1C #### [facility] [address] [place] [address] Dr. Kavon Cardenas pH (U) 6.5 [pH] Normal 5-9 [facility] Comment on above: Performed By: #### A 1C #### [facility] [address] [place] [address] Dr. Kavon Cardenas SPEC GRAVITY 1.025 Normal 1.005-<=1.02 5 [facility] Comment on above: Performed By: #### A 1C #### [facility] [address] [place] [address] Dr. Kavon Cardenas UA PROTEIN Negative Normal NEGATIVE/ TRACE [facility] Comment on above: Performed By: #### A 1C #### [facility] [address] [place] [address] Dr. Kavon Cardenas UR MICRO IND NOT INDICATED Normal [facility] Comment on above: Performed By: #### A 1C #### [facility] [address] [place] [address] Dr. Kavon Cardenas Urobilinogen Qn (U) 0.2 {Bee'U}/dL Normal 0.2 - 1. 0 [facility] Comment on above: Performed By: #### A 1C #### [facility] [address] [place] [address] Dr. Kavon Cardenas INFLUENZA A AND B AGon 09-17 INFLUANE SEE BELOW Normal [facility] Comment on above: Result Comment: Nega tive for Flu A protein angiten. Infection due to Flu A cannot be ruled out. Flu A angiten in the sample may be below the detection limit of the test. Performed By: #### F VPCR #### [facility] [address] [place] [address] Dr. Kavon Cardenas INFLUBNEG SEE BELOW Normal [facility] Comment on above: Result Comment: Nega tive for Flu B protein antigen. Infection due to Flu B cannot be ruled out. Flu B antigen in the sample may be below the detection limit of the test. Performed By: #### F VPCR #### [facility] [address] [place] [address] Dr. Kavon Cardenas INFLUENZA A AG Negative Normal NEGATIVE SEE COMMENT [facility] Comment on above: Performed By: #### F VPCR #### [facility] [address] [place] [address] Dr. Kavon Cardenas INFLUENZA B AG Negative Normal NEGATIVE SEE COMMENT [facility] Comment on above: Performed By: #### F VPCR #### [facility] [address] [place] [address] Dr. Kavon Cardenas PROF 14(COMP METB)on 023 Albumin [Mass/Vol] 3.1 g/dL Critically low 3.4-5.0 [facility] Comment on above: Performed By: #### C ARDIGM #### [facility] [address] [place] [address] Dr. Kavon Cardenas Albumin/Globulin [Mass ratio] 0.8 {ratio} Normal [facility] Comment on above: Performed By: #### C ARDIGM #### [facility] [address] [place] [address] Dr. Kavon Cardenas ALP [Catalytic activity/Vol] 100 U/L Normal 46-116 [facility] Comment on above: Performed By: #### C ARDIGM #### [facility] [address] [address] [address] Kavon Cardenas ALT [Catalytic activity/Vol] 30 U/L Normal 14-59 [facility] Comment on above: Performed By: #### C ARDIGM #### [facility] [address] [address] [address] Kavon Cardenas Anion gap [Moles/Vol] 14.0 mmol/L Normal [facility] Comment on above: Performed By: #### C ARDIGM #### [facility] [address] [place] [address] Dr. Kavon Cardenas AST [Catalytic activity/Vol] 17 U/L Normal 15-37 [facility] Comment on above: Performed By: #### C ARDIGM #### [facility] [address] [place] [address] Dr. Kavon Cardenas Bilirubin [Mass/Vol] 0.1 mg/dL Critically low 0.2-1.0 [facility] Comment on above: Performed By: #### C ARDIGM #### [facility] [address] [place] [address] Dr. Kavon Cardenas Calcium [Mass/Vol] 8.8 mg/dL Normal 8.5-10.1 [facility] Comment on above: Performed By: #### C ARDIGM #### [facility] [address] [place] [address] Dr. Kavon Cardenas Chloride [Moles/Vol] 105 mmol/L Normal 98-107 [facility] Comment on above: Performed By: #### C ARDIGM #### [facility] [address] [place] [address] Dr. Kavon Cardenas CO2 [Moles/Vol] 22.7 mmol/L Normal 21.0-32.0 [facility] Comment on above: Performed By: #### C ARDIGM #### [facility] [address] [place] [address] Dr. Kavon Cardenas Creatinine [Mass/Vol] 0.65 mg/dL Normal 0.55-1.02 [facility] Comment on above: Performed By: #### C ARDIGM #### [facility] [address] [place] [address] Dr. Kavon Cardenas EGFR-AF [place]IZ[place] >60 Normal >=60 [facility] Comment on above: Performed By: #### C ARDIGM #### [facility] [address] [address] [address] Kavon Cardenas EGFR-NON AF [place]IZ[place] >60 Normal >=60 [facility] Comment on above: Performed By: #### C ARDIGM #### [facility] [address] [place] [address] Dr. Kavon Cardenas Globulin (S) [Mass/Vol] 4.0 g/dL Normal [facility] Comment on above: Performed By: #### C ARDIGM #### [facility] [address] [place] [address] Dr. Kavon Cardenas Glucose [Mass/Vol] 100 mg/dL Normal 74-106 [facility] Comment on above: Performed By: #### C ARDIGM #### [facility] [address] [place] [address] Dr. Kavon Cardenas Potassium [Moles/Vol] 3.7 mmol/L Normal 3.5-5.1 [facility] Comment on above: Performed By: #### C ARDIGM #### [facility] [address] [place] [address] Dr. Kavon Cardenas Protein [Mass/Vol] 7.1 g/dL Normal 6.4-8.2 [facility] Comment on above: Performed By: #### C ARDIGM #### [facility] [address] [place] [address] Dr. Kavon Cardenas Sodium [Moles/Vol] 138 mmol/L Normal 136-145 [facility] Comment on above: Performed By: #### C ARDIGM #### [facility] [address] [place] [address] Dr. Kavon Cardenas Urea nitrogen [Mass/Vol] 6.0 mg/dL Critically low 7.0-18.0 [facility] Comment on above: Performed By: #### C ARDIGM #### [facility] [address] [place] [address] Dr. Kavon Cardenas Urea nitrogen/Creatinine [Mass ratio] 9.2 mg/mg Normal [facility] Comment on above: Performed By: #### C ARDIGM #### [facility] [address] [address] [address] Kavon Cardenas PROTIMEon 09-17-2022 INR Coag (PPP) [Relative time] {INR} Normal [facility] Comment on above: Performed By: #### A 1C #### [facility] [address] [place] [address] Dr. Kavon Cardenas INR GUIDELINES SEE BELOW Normal [facility] Comment on above: Result Comment: GODWIN RED INR: 2.0 - 3.0 CONDITIONS NOT LISTED BELOW 2.5 - 3.5 FOR PROSTHETIC HEART VALVE REPLACEMENT 2.5 - 3.5 RECURRENT THROMBOSIS Performed By: #### A 1C #### [facility] [address] [place] [address] Dr. Kavon Cardenas PT Coag (PPP) [Time] 9.3 s Normal 9.0-11.6 [facility] Comment on above: Performed By: #### A 1C #### [facility] [address] [place] [address] Dr. Kavon Cardenas PTTon 09-17-2022 aPTT Coag (Bld) [Time] 24.8 s Normal 22.3-36.2 [facility] Comment on above: Performed By: #### C ARDIGM #### [facility] [address] [place] [address] Dr. Kavon Cardenas TROPONIN, HIGH SENSITIVITYon 09-17-2022 HSTROP <4.0 Normal 4.0-51.3 [facility] Comment on above: Result Comment: CUT- OFF POINTS HAVE BEEN ESTABLISHED BASED ON THE FOURTH UNIVERSAL DEFINITIONS OF MYOCARDIAL INFARCTION. THE UPPER REFERENCE LIMIT (URL) OF TROPONIN, DEFINED THE 99TH PERCENTILE OF cTnI DISTRIBUTION IN A REFERENCE POPULATION, HAS BEEN CONFIRMED THE DECISION THRESHOLD FOR WA DIAGNOSIS. Performed By: #### A 1C #### [facility] [address] [place], [place] [address] Dr. Kavon Cardenas XR CHEST 1 Von [...] by: JORDAN ALVES Date: 2022-09-17 16:39 Normal [facility] GLUCOSE - 1HRon 09-11-2022 Glucose [Mass/Vol] 112 mg/dL Critically high 74-106 [facility] Comment on above: Performed By: #### G LU1HR #### [facility] [address] [place], [place] [address] Dr. Kavon Cardenas PT Mutation 09-12-19 23 PT [id number] VARIANT Negative Normal [facility] Comment on above: Result Comment: (NOT E) Indication for testing: Assess genetic risk for thrombosis. NEGATIVE: The Factor II, prothrombin [id number] mutation, was not detected. Other causes of [...] M.D., Ph.D. 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 PATHOGENIC VARIANT TESTED: F2 c.*97G>A ([id number]). CLINICAL SENSITIVITY FOR VENOUS THROMBOSIS: Approximately 10 percent. METHODOLOGY: Polymerase chain reaction and fluorescence monitoring. ANALYTICAL SENSITIVITY AND SPECIFICITY: 99 percent. LIMITATIONS: Diagnostic errors can occur due to rare sequence variations. F2 gene variants, other than c.*97G>A (A79200C), will not be detected. This test was developed and its performance characteristics determined by [facility]. It has not been cleared or approved by the [place] Food and Drug Administration. This test was performed in a CLIA certified laboratory and is intended for clinical purposes. Counseling and informed consent are recommended for genetic testing. Consent forms are available online. Performed by [facility], [address] [place], [place] [id number] [email or web address], Osito Barnett MD, PHD, Lab. Director Performed By: #### P B #### [address] [address] Service Order Dispatcher Chief: Miguel Betancourt MD #### APTMUT #### [email or web address] [address] [phone] Service Order Dispatcher Chief: Nikhil Barragan MD #### AAFPM #### [address] [phone] Service Order Dispatcher Chief: Miguel Betancourt MD [address] [address] Service Order Dispatcher Chief: Nikhil Barragan MD PT PCR SPECIMEN Whole Blood Normal [facility] Comment on above: Performed By: #### P B #### [address] [address] Service Order Dispatcher Chief: Miguel Betancourt MD #### APTMUT #### [facility] [address] [place] [address] Service Order Dispatcher Chief: Nikhil Barragan MD #### AAFPM #### [address] [address] Service Order Dispatcher Chief: Miguel Betancourt MD [address] [address] Service Order Dispatcher Chief: Nikhil Barragan MD AFP, Maternalon 09-09-2022 Determined by Other [facility] Comment on above: Performed By: #### P B #### [address] [address] Service Order Dispatcher Chief: Miguel Betancourt MD #### APTMUT #### [address] [address] Service Order Dispatcher Chief: Nikhil Barragan MD #### AAFPM #### [address] [address] Service Order Dispatcher Chief: Miguel Betancourt MD [address] [address] Service Order Dispatcher Chief: Nikhil Barragan MD Due Date SEE NOTE Normal [facility] Comment on above: Result Comment: Resu lts for Estimated Due Date: 02 14 23 Performed By: #### P B #### [address] [address] Service Order Dispatcher Chief: Miguel Betancourt MD #### APTMUT #### [facility] [address] [place] [phone] Service Order Dispatcher Chief: Nikhil Barragan MD #### AAFPM #### [address] [address] Service Order Dispatcher Chief: Miguel Betancourt MD [address] [place] [address] Service Order Dispatcher Chief: Nikhil Barragan MD Family History No Normal [facility] Comment on above: Performed By: #### P B #### [address] [address] Service Order Dispatcher Chief: Miguel Betancourt MD #### APTMUT #### [facility] [address] [place] [address] Service Order Dispatcher Chief: Nikhil Barragan MD #### AAFPM #### [address] [address] Service Order Dispatcher Chief: Miguel Betancourt MD [facility] [address] [place] [address] Service Order Dispatcher Chief: Nikhil Barragan MD Gestat Age (exact) 17 wks, 0 days Normal [facility] Comment on above: Performed By: #### P B #### [address] [address] Service Order Dispatcher Chief: Miguel Betancourt MD #### APTMUT #### [facility] [address] [place] [address] Service Order Dispatcher Chief: Nikhil Barragan MD #### AAFPM #### [address] [address] Service Order Dispatcher Chief: Miguel Betancourt MD [facility] [address] [place] [address] Service Order Dispatcher Chief: Nikhil Barragan MD Ins Req Matern Diab No [facility] Comment on above: Performed By: #### P B #### [address] [address] Service Order Dispatcher Chief: Miguel Betancourt MD #### APTMUT #### [facility] [address] [place] [address] Service Order Dispatcher Chief: Nikhil Barragan MD #### AAFPM #### [facility] [address] [place] [address] Service Order Dispatcher Chief: Miguel Betancourt MD [facility] [address] [place] [address] Service Order Dispatcher Chief: Nikhil Barragan MD Interpretation Screen Neg Normal [facility] Comment on above: Result Comment: (NOT E) INTERPRETATION: SCREEN NEGATIVE for open spina bifida Neural Tube Defects (NTD) Negative Pre-Test Post-Test Cutoff Neural Tube Defects Risks 1:1030 < 1:42293 1:250 Comments: The risk of an open neural tube defect is less than the screening cut-off. This test was developed and its performance characteristics determined by [facility]. It has not been cleared or approved by the [place] Food and Drug Administration. This test was performed in a CLIA certified laboratory and is intended for clinical purposes. Performed By: #### P B #### [address] [address] Service Order Dispatcher Chief: Miguel Betancourt MD #### APTMUT #### [facility] [address] [place] [address] Service Order Dispatcher Chief: Nikhil Barragan MD #### AAFPM #### [address] [address] Service Order Dispatcher Chief: Miguel Betancourt MD [address] [phone] Service Order Dispatcher Chief: Nikhil Barragan MD [age] [facility] Comment on above: Performed By: #### P B #### [facility] [address] [place] [address] Service Order Dispatcher Chief: Miguel Betancourt MD #### APTMUT #### [facility] [address] [place] [address] Service Order Dispatcher Chief: Nikhil Barragan MD #### AAFPM #### [facility] [address] [place] [address] Service Order Dispatcher Chief: Miguel Betancourt MD [facility] [address] [place] [address] Service Order Dispatcher Chief: Nikhil Barragan MD Maternal Race Nonblack [facility] Comment on above: Performed By: #### P B #### [facility] [address] [place] [address] Service Order Dispatcher Chief: Miguel Betancourt MD #### APTMUT #### [facility] [address] [place] [address] Service Order Dispatcher Chief: Nikhil Barragan MD #### AAFPM #### [address] [address] Service Order Dispatcher Chief: Miguel Betancourt MD [facility] [address] [place] [address] Service Order Dispatcher Chief: Nikhil Barragan MD Maternal Weight 230.0 lbs. [facility] Comment on above: Performed By: #### P B #### [facility] [address] [place] [address] Service Order Dispatcher Chief: Miguel Betancourt MD #### APTMUT #### [facility] [address] [place] [address] Service Order Dispatcher Chief: Nikhil Barragan MD #### AAFPM #### [address] [address] Service Order Dispatcher Chief: Miguel Betancourt MD [facility] [address] [place] [address] Service Order Dispatcher Chief: Nikhil Barragan MD MoM for AFP 0.93 [facility] Comment on above: Performed By: #### P B #### [facility] [address] [place] [address] Service Order Dispatcher Chief: Miguel Betancourt MD #### APTMUT #### [facility] [address] [place] [address] Service Order Dispatcher Chief: Nikhil Barragan MD #### AAFPM #### [address] [address] Service Order Dispatcher Chief: Miguel Betancourt MD [facility] [address] [place] [address] Service Order Dispatcher Chief: Nikhil Barragan MD Number of Fetuses Yee Normal [facility] Comment on above: Performed By: #### P B #### [address] [address] Service Order Dispatcher Chief: Miguel Betancourt MD #### APTMUT #### [facility] [address] [place] [address] Service Order Dispatcher Chief: Nikhil Barragan MD #### AAFPM #### [address] [address] Service Order Dispatcher Chief: Miguel Betancourt MD [facility] [address] [place] [address] Service Order Dispatcher Chief: Nikhil Barragan MD Patient's AFP 27 ng/mL [facility] Comment on above: Performed By: #### P B #### [address] [address] Service Order Dispatcher Chief: Miguel Betancourt MD #### APTMUT #### [facility] [address] [place] [address] Service Order Dispatcher Chief: Nikhil Barragan MD #### AAFPM #### [address] [address] Service Order Dispatcher Chief: Miguel Betancourt MD [facility] [address] [place] [address] Service Order Dispatcher Chief: Nikhil Barragan MD Smoking Unknown [facility] Comment on above: Performed By: #### P B #### [address] [address] Service Order Dispatcher Chief: Miguel Betancourt MD #### APTMUT #### [address] [address] Service Order Dispatcher Chief: Nikhil Barragan MD #### AAFPM #### [address] [address] Service Order Dispatcher Chief: Miguel Betancourt MD [address] [address] Service Order Dispatcher Chief: Nikhil Barragan MD Specimen See Note Normal [facility] Comment on above: Result Comment: (NOT E) Initial sample Performed by [facility], [address] [place] [phone] www[email or web address], Osito Barnett MD, PHD, Lab. Director Performed By: #### P B #### [address] [address] Service Order Dispatcher Chief: Miguel Betancourt MD #### APTMUT #### [address] [address] Service Order Dispatcher Chief: Nikhil Barragan MD #### AAFPM #### [address] [address] Service Order Dispatcher Chief: Miguel Betancourt MD [address] [phone] Service Order Dispatcher Chief: Nikhil Barragan MD AFP, Maternalon 09-07-2022 Current Smoking INFORMATION NOT PROVIDED Normal [facility] Comment on above: Performed By: #### P B #### [address] [address] Service Order Dispatcher Chief: Miguel Betancourt MD #### APTMUT #### [facility] [address] [place] [address] Service Order Dispatcher Chief: Nikhil Barragan MD #### AAFPM #### [address] [address] Service Order Dispatcher Chief: Miguel Betancourt MD [facility] [address] [place] [address] Service Order Dispatcher Chief: Nikhil Barragan MD Dating LMP [facility] Comment on above: Performed By: #### P B #### [address] [address] Service Order Dispatcher Chief: Miguel Betancourt MD #### APTMUT #### [facility] [address] [place] [address] Service Order Dispatcher Chief: Nikhil Barragan MD #### AAFPM #### [address] [address] Service Order Dispatcher Chief: Miguel Betancourt MD [facility] [address] [place] [address] Service Order Dispatcher Chief: Nikhil Barragan MD Diabetic Negative [facility] Comment on above: Performed By: #### P B #### [address] [address] Service Order Dispatcher Chief: Miguel Betancourt MD #### APTMUT #### [facility] [address] [place] [address] Service Order Dispatcher Chief: Nikhil Barragan MD #### AAFPM #### [address] [address] Service Order Dispatcher Chief: Miguel Betancourt MD [facility] [address] [place] [address] Service Order Dispatcher Chief: Nikhil Barargan MD Donor Egg INFORMATION NOT PROVIDED [facility] Comment on above: Performed By: #### P B #### [address] [address] Service Order Dispatcher Chief: Miguel Betancourt MD #### APTMUT #### [facility] [address] [place] [address] Service Order Dispatcher Chief: Nikhil Barragan MD #### AAFPM #### [address] [address] Service Order Dispatcher Chief: Miguel Betancourt MD [facility] [address] [place] [address] Service Order Dispatcher Chief: Nikhil Barragan MD Estimated Due Date [facility] Comment on above: Performed By: #### P B #### [facility] [address] [place] [address] Service Order Dispatcher Chief: Miguel Betancourt MD #### APTMUT #### [facility] [address] [place] [address] Service Order Dispatcher Chief: Nikhil Barragan MD #### AAFPM #### [address] [address] Service Order Dispatcher Chief: Miguel Betancourt MD [facility] [address] [place] [address] Service Order Dispatcher Chief: Nikhil Barragan MD Family History Negative [facility] Comment on above: Performed By: #### P B #### [address] [address] Service Order Dispatcher Chief: Miguel Betancourt MD #### APTMUT #### [facility] [address] [place] [address] Service Order Dispatcher Chief: Nikhil Barragan MD #### AAFPM #### [address] [address] Service Order Dispatcher Chief: Miguel Betancourt MD [facility] [address] [place] [address] Service Order Dispatcher Chief: Nikhil Barragan MD In Vitro Fertalizat INFORMATION NOT PROVIDED [facility] Comment on above: Performed By: #### P B #### [address] [address] Service Order Dispatcher Chief: Miguel Betancourt MD #### APTMUT #### [facility] [address] [place] [address] Service Order Dispatcher Chief: Nikhil Barragan MD #### AAFPM #### [address] [address] Service Order Dispatcher Chief: Miguel Betancourt MD [facility] [address] [place] [address] Service Order Dispatcher Chief: Nikhil Barragan MD LMP date [facility] Comment on above: Performed By: #### P B #### [facility] [address] [place] [address] Service Order Dispatcher Chief: Miguel Betancourt MD #### APTMUT #### [facility] [address] [place] [address] Service Order Dispatcher Chief: Nikhil Barragan MD #### AAFPM #### [address] [address] Service Order Dispatcher Chief: Miguel Betancourt MD [facility] [address] [place] [address] Service Order Dispatcher Chief: Nikhil Barragan MD Maternal date [id number] [facility] Comment on above: Performed By: #### P B #### [facility] [address] [place] [address] Service Order Dispatcher Chief: Miguel Betancourt MD #### APTMUT #### [facility] [address] [place] [address] Service Order Dispatcher Chief: Nikhil Barragan MD #### AAFPM #### [address] [address] Service Order Dispatcher Chief: Miguel Betancourt MD [facility] [address] [place] [address] Service Order Dispatcher Chief: Nikhil Barragan MD Maternal Weight 230 [facility] Comment on above: Performed By: #### P B #### [facility] [address] [place] [address] Service Order Dispatcher Chief: Miguel Betancourt MD #### APTMUT #### [facility] [address] [place] [address] Service Order Dispatcher Chief: Nikhil Barragan MD #### AAFPM #### [facility] [address] [place] [address] Service Order Dispatcher Chief: Miguel Betancourt MD [facility] [address] [place] [address] Service Order Dispatcher Chief: Nikhil Barragan MD Monochorionic Twins INFORMATION NOT PROVIDED [facility] Comment on above: Performed By: #### P B #### [address] [address] Service Order Dispatcher Chief: Miguel Betancourt MD #### APTMUT #### [facility] [address] [place] [address] Service Order Dispatcher Chief: Nikhil Barragan MD #### AAFPM #### [facility] [address] [place] [address] Service Order Dispatcher Chief: Miguel Betancourt MD [facility] [address] [place] [address] Service Order Dispatcher Chief: Nikhil Barragan MD Patient Weight Units [facility] Comment on above: Performed By: #### P B #### [facility] [address] [place] [address] Service Order Dispatcher Chief: Miguel Betancourt MD #### APTMUT #### [facility] [address] [place] [address] Service Order Dispatcher Chief: Nikhil Barragan MD #### AAFPM #### [facility] [address] [place] [address] Service Order Dispatcher Chief: Miguel Betancourt MD [facility] [address] [place] [address] Service Order Dispatcher Chief: Nikhil Barragan MD Race (Maternal) WHITE Normal [facility] Comment on above: Performed By: #### P B #### [facility] [address] [place] [address] Service Order Dispatcher Chief: Miguel Betancourt MD #### APTMUT #### [facility] [address] [place] [address] Service Order Dispatcher Chief: Nikhli Barragan MD #### AAFPM #### [address] [address] Service Order Dispatcher Chief: Miguel Betancourt MD [facility] [address] [place] [address] Service Order Dispatcher Chief: Nikhil Barragan MD Repeat Specimen INFORMATION NOT PROVIDED Normal [facility] Comment on above: Performed By: #### P B #### [facility] [address] [place] [address] Service Order Dispatcher Chief: Miguel Betancourt MD #### APTMUT #### [facility] [address] [place] [address] Service Order Dispatcher Chief: Nikhil Barragan MD #### AAFPM #### [address] [address] Service Order Dispatcher Chief: Miguel Betancourt MD [facility] [address] [place] [address] Service Order Dispatcher Chief: Nikhil Barragan MD Valproic/Carbamazep INFORMATION NOT PROVIDED [facility] Comment on above: Performed By: #### P B #### [address] [address] Service Order Dispatcher Chief: Miguel Betancourt MD #### APTMUT #### [facility] [address] [place] [address] Service Order Dispatcher Chief: Nikhil Barragan MD #### AAFPM #### [facility] [address] [place] [address] Service Order Dispatcher Chief: Miguel Betancourt MD [facility] [address] [place] [address] Service Order Dispatcher Chief: Nikhil Barragan MD Lead, Bloodon 09-07-2022 Lead, Blood 7 ug/dL High 0-4 [facility] Comment on above: Result Comment: Reference [...] Exposure, [employer], 2007. Contact your [facility] Department of Health and/or applicable regulatory agency for specific guidance on medical management recommendations. Performed By: #### P B #### [facility] [address] [place] [address] Service Order Dispatcher Chief: Miguel Betancourt MD #### APTMUT #### [facility] [address] [place] [address] Service Order Dispatcher Chief: Nikhil Barragan MD #### AAFPM #### [facility] [address] [place] [address] Service Order Dispatcher Chief: Miguel Betancourt MD [address] [address] Service Order Dispatcher Chief: Nikhil Barragan MD Cytogeneticson 09-06-2022 Cytogenetics (NOTE) [...] Professional component performed by Raissa Espinal, Ph.D., [facility], [facility] [place] (CLIA #: [id number]). Electronically Signed Out Raissa Espinal, Ph.D., F.A.C.M.G. [employer] [facility]ET[facility] [address] [place] [phone] CHROMOSOME STUDY CONSULTATION REPORT [facility] Comment on above: Performed By: #### P [facility] #### [place] [id number] Service Order Dispatcher Chief: Miguel Betancourt MD Cytogenetics (NOTE) Specimen(s) Received: PERIPHERAL BLOOD, MICROARRAY Clinical Information: Recurrent Loss with Current RESULTS: Diagnosis: [facility] Microarray Result: arr[hg19](1-22,X)x2 Normal Female SNP Microarray Result:arr[hg19](1-22 ,X)x2 Normal Female INTERPRETATION: Microarray analysis was performed on this specimen using the Affymetrix WITOIcanHD array which includes 1.7 million oligonucleotide probes and 750,000 SNP probes. There were no clinically significant abnormalities. Note: This individual's DNA showed one or more copy number variants (CNVs) of no known clinical significance that are not included in this report. See chromosome analysis (CM23-78). Test Details Platform Affymetrix CytoScanHD NetAffx Build [id number] (hg19) No. Oligo Probes 1.7M No. SNPs 750K Chip ID [id number] Method: Whole-genome array based comparative genomic hybridization (aCGH) analysis is performed using a high density cytogenetic microarray Affymetrix WITOIcanHD, designed for the accurate and comprehensive analysis [...] Chromosome Analysis Suite ([place]), was developed by [employer] in [place], [place]. This software package enables viewing results data (CYCHP, XNCHP, and OSCHP files) and summarization of chromosomal aberrations across the Genome-Wide Human SNP 6.0 Array. The software allows direct access to external databases such as NCBI, UCSC Genome Browser, Ensembl, ClinVar and OMIM. Disclaimer: This oligonucleotide and SNP aCGH test was developed and its performance determined by [employer]. The microarray detects chromosomal aneuploidy in [...] be regarded as investigational or for research. [facility] is certified under the Clinical Laboratory Improvement Amendments of 1988 (CLIA-88) as qualified to perform high complexity clinical laboratory testing. The technical component of this analysis was performed at [facility]; analysis and interpretation are provided at [facility] by a board-certified clinical coal dumping equipment operator with additional training in chromosome microarray analysis. Professional component performed by Raissa Espinal, Ph.D., [facility], [address], [place], [place] (CLIA #: [id number]). Electronically Signed Out Raissa Espinal, Ph.D., F.A.C.M.GEverton [employer] [facility]ICAL CYTOGENET[facility] [address] [place], [place] [phone] MICROARRAY CONSULTATION REPORT [facility] Normal [facility] Comment on above: Performed By: #### P PPMA #### [address] [address] Service Order Dispatcher Chief: Miguel Betancourt MD [facility] TEST PT SEND OUTo n 07-31-2022 SENT TO REF LAB 07/31/2022 Normal [facility] Comment on above: Performed By: #### C BC #### [facility] [address] [place], [place] [address] Dr. Kavon Cardenas US PREG TVon 07-20-2022 [...] 5 days with normal heartbeat. Normal [facility] HEPATITIS C VIRUS AB W/ REFL EX QUANTon 07-18-2022 HCV AB <0.1 Normal 0.0-0.9 [facility] Comment on above: Performed By: #### C BC #### [facility] [address] [place] [address] Dr. Kavon Cardenas Interpretation: Comment Normal [facility] Comment on above: Result Comment: Nega tive Not infected with HCV, unless recent infection is suspected or other evidence exists to indicate HCV infection. Performed By: #### C BC #### [facility] [address] [place] [address] Dr. Kavon Cardenas HEP B SURFACE ANTIGEN SCREEN on 07-15-2022 HBsAg Screen Negative Normal Negative [facility] Comment on above: Performed By: #### C BC #### [facility] [address] [place] [address] Dr. Kavon Cardenas HIV 1 AND 2 WITH REFLEXon HIV Screen 4th Generation wRfx Non-Reactive Normal Non Reactive [facility] Comment on above: Result Comment: HIV Negative HIV-1/HIV-2 antibodies and HIV-1 p24 antigen were NOT detected. There is no laboratory evidence of HIV infection. Performed By: #### C BC #### [facility] [address] [place] [address] Dr. Kavon Cardenas RPR QUANTon 07-15-2022 Rapid Plasma Reagin, Quant Non-Reactive Normal NonRea<1:1 [facility] Comment on above: Result Comment: Sammy peters Note: This test does not meet current guidelines for screening and diagnosis of syphilis. This test is intended for following treatment response in patients being treated for syphilis infection. To screen for syphilis infection, a reflex cascade that includes both RPR and a treponema-specific assay should be utilized, such as Treponema pallidum (Syphilis) Screening [place] (097306) or Rapid Plasma Reagin (RPR) Test With Reflex to Quantitative RPR and Confirmatory Treponema pallidum Antibodies (763686). Performed By: #### A 1C #### [facility] [address] [place] [address] Dr. Kavon Cardenas RUBELLA AB IGGon 07-15-2022 Rubella Antibodies, IgG 1.77 index Normal Immune >0.99 [facility] Comment on above: Result Comment: Non- immune <0.90 Equivocal 0.90 - 0.99 Immune >0.99 Performed By: #### R UBIGG #### [facility] [address] [place] [address] Dr. Kavon Cardenas CBC AUTO DIFFon 07-14-2022 BASO # 0.1 103/ul Normal 0.0-0.1 [facility] Comment on above: Performed By: #### F VPCR #### [facility] [address] [place] [address] Dr. Kavon Cardenas Basophils/100 WBC (Bld) 0.5 % Normal 0.2-2.0 [facility] Comment on above: Performed By: #### F VPCR #### [facility] [address] [place] [address] Dr. Kavon Cardenas EO # 0.8 103/ul Critically high 0.0-0.7 [facility] Comment on above: Performed By: #### F VPCR #### [facility] [address] [place] [address] Dr. Kavon Cardenas Eosinophils/100 WBC (Bld) 5.7 % Normal 0.9-7.0 [facility] Comment on above: Performed By: #### F VPCR #### [facility] [address] [place] [address] Dr. Kavon Cardenas Erythrocyte distribution width (RBC) [Ratio] 14.2 % Normal 11.0-15.0 [facility] Comment on above: Performed By: #### F VPCR #### [facility] [address] [place] [address] Dr. Kavon Cardenas Hematocrit (Bld) [Volume fraction] 39.2 % Normal 36.0-48.0 [facility] Comment on above: Performed By: #### F VPCR #### [facility] [address] [place] [address] Dr. Kavon Cardenas Hemoglobin (Bld) [Mass/Vol] 12.9 g/dL Normal 12.0-16.0 [facility] Comment on above: Performed By: #### F VPCR #### [facility] [address] [place] [address] Dr. Kavon Cardenas IG # 0.09 10e3/ul Critically high 0.00-0.03 [facility] Comment on above: Performed By: #### F VPCR #### [facility] [address] [place] [address] Dr. Kavon Cardenas IG % 0.6 % Critically high 0.0-0.5 [facility] Comment on above: Performed By: #### F VPCR #### [facility] [address] [place] [address] Dr. Kavon Cardenas LYMPH # 2.7 103/ul Normal 1.2-3.8 [facility] Comment on above: Performed By: #### F VPCR #### [facility] [address] [place] [address] Dr. Kavon Cardenas Lymphocytes/100 WBC (Bld) 18.3 % Critically low 20.5-60.0 [facility] Comment on above: Performed By: #### F VPCR #### [facility] [address] [place] [address] Dr. Kavon Cardenas MANUAL DIFF REQ NO Normal [facility] Comment on above: Performed By: #### F VPCR #### [facility] [address] [place] [address] Dr. Kavon Cardenas MCH (RBC) [Entitic mass] 28.2 pg Normal 26.7-34.0 [facility] Comment on above: Performed By: #### F VPCR #### [facility] [address] [place] [address] Dr. Kavon Cardenas MCHC (RBC) [Mass/Vol] 32.9 g/dL Normal 29.9-35.2 [facility] Comment on above: Performed By: #### F VPCR #### [facility] [address] [place] [address] Dr. Kavon Cardenas MCV (RBC) [Entitic vol] 85.8 fL Normal 81.0-99.0 [facility] Comment on above: Performed By: #### F VPCR #### [facility] [address] [place] [address] Dr. Kavon Cardenas MONO # 0.7 103/ul Normal 0.3-0.8 [facility] Comment on above: Performed By: #### F VPCR #### [facility] [address] [place] [address] Dr. Kavon Cardenas Monocytes/100 WBC (Bld) 4.9 % Normal 1.7-12.0 [facility] Comment on above: Performed By: #### F VPCR #### [facility] [address] [place] [address] Dr. Kavon Cardenas NEUT # 10.4 103/ul Critically high 1.4-6.5 [facility] Comment on above: Performed By: #### F VPCR #### [facility] [address] [place] [address] Dr. Kavon Cardenas Neutrophils/100 WBC (Bld) 70.0 % Normal 43.0-75.0 [facility] Comment on above: Performed By: #### F VPCR #### [facility] [address] [place] [address] Dr. Kavon Cardenas Platelet mean volume (Bld) [Entitic vol] 10.1 fL Normal 9.5-13.5 [facility] Comment on above: Performed By: #### F VPCR #### [facility] [address] [place] [address] [address] Kavon Cardenas PLT 388 103/ul Normal 150-450 [facility] Comment on above: Performed By: #### F VPCR #### [facility] [address] [place] [address] [address] Kavon Cardenas RBC 4.57 106/ul Normal 4.20-5.40 [facility] Comment on above: Performed By: #### F VPCR #### [facility] [address] [place] [address] [address] Kavon Cardenas WBC 14.8 103/ul Critically high 4.0-11.0 [facility] Comment on above: Performed By: #### F VPCR #### [facility] [address] [place] [address] Dr. Kavon Cardenas CULTURE URINEon 07-14-2022 CULTURE URINE Culture Observations : LIGHT GROWTH OF MIXED GENITAL KYRA. NO POTENTIAL PATHOGENS SEEN. Normal [facility] Comment on above: Performed By: #### C ARDIGM #### [facility] [address] [place] [address] Dr. Kavon Cardenas GLYCOHEMOGLOBIN A1Con 2022 ADA RECOMMENDATION SEE BELOW Normal [facility] Comment on above: Result Comment: ADA RECOMMENDED LIMIT 4.0 - 6.0 ADA THERAPEUTIC TARGET < 7.0 ACTION SUGGESTED > 7.0 Performed By: #### A 1C #### [facility] [address] [place] [address] Dr. Kavon Cardenas Glucose [Mass/Vol] 103 mg/dL Normal [facility] Comment on above: Performed By: #### A 1C #### [facility] [address] [place] [address] Dr. Kavon Cardenas HbA1c (Bld) [Mass fraction] 5.2 % Normal 4.5-6.2 [facility] Comment on above: Performed By: #### A 1C #### [facility] [address] [place] [address] Dr. Kavon Cardenas TYPE AND SCREENon 07-14-2022 TYPE AND SCREEN Negative Normal [facility] Comment on above: Performed By: #### C ARDIGM #### [facility] [address] [place] [address] Dr. Kavon Cardenas PREG QUANT HCGon 06-14-2022 HCG QUANT 1962 mIU/mL Normal [facility] Comment on above: Performed By: #### C BC #### [facility] [address] [place] [address] Dr. Kavon Cardenas HCG RANGE SEE BELOW Normal [facility] Comment on above: Result Comment: 5-50 0.2-1 WEEK 50-500 1-2 WEEKS 100-5,000 2-3 WEEKS 500-10,000 3-4 WEEKS 1,000-50,000 4-5 WEEKS 10,000-100,000 5-6 WEEKS 15,000-200,000 6-8 WEEKS 10,000-100,000 2-3 MONTHS Performed By: #### C BC #### [facility] [address] [place] [address] Dr. Kavon Cardenas CBC AUTO DIFFon 06-12-2022 BASO # 0.1 103/ul Normal 0.0-0.1 [facility] Comment on above: Performed By: #### C BC #### [facility] [address] [place] [address] Dr. Kavon Cardenas Basophils/100 WBC (Bld) 0.6 % Normal 0.2-2.0 [facility] Comment on above: Performed By: #### C BC #### [facility] [address] [place] [address] Dr. Kavon Cardenas EO # 1.1 103/ul Critically high 0.0-0.7 [facility] Comment on above: Performed By: #### C BC #### [facility] [address] [place] [address] Dr. Kavon Cardenas Eosinophils/100 WBC (Bld) 8.1 % Critically high 0.9-7.0 [facility] Comment on above: Performed By: #### C BC #### [facility] [address] [place] [address] Dr. Kavon Cardenas Erythrocyte distribution width (RBC) [Ratio] 13.8 % Normal 11.0-15.0 [facility] Comment on above: Performed By: #### C BC #### [facility] [address] [place] [address] Dr. Kavon Cardenas Hematocrit (Bld) [Volume fraction] 37.4 % Normal 36.0-48.0 [facility] Comment on above: Performed By: #### C BC #### [facility] [address] [place] [address] Dr. Kavon Cardenas Hemoglobin (Bld) [Mass/Vol] 12.4 g/dL Normal 12.0-16.0 [facility] Comment on above: Performed By: #### C BC #### [facility] [address] [place] [address] Dr. Kavon Cardenas IG # 0.06 10e3/ul Critically high 0.00-0.03 [facility] Comment on above: Performed By: #### C BC #### [facility] [address] [place] [address] Dr. Kavon Cardenas IG % 0.4 % Normal 0.0-0.5 [facility] Comment on above: Performed By: #### C BC #### [facility] [address] [place] [address] Dr. Kavon Cardenas LYMPH # 3.4 103/ul Normal 1.2-3.8 [facility] Comment on above: Performed By: #### C BC #### [facility] [address] [place] [address] Dr. Kavon Cardenas Lymphocytes/100 WBC (Bld) 25.4 % Normal 20.5-60.0 [facility] Comment on above: Performed By: #### C BC #### [facility] [address] [place] [address] Dr. Kavon Cardenas MANUAL DIFF REQ NO Normal [facility] Comment on above: Performed By: #### C BC #### [facility] [address] [place] [address] Dr. Kavon Cardenas MCH (RBC) [Entitic mass] 28.5 pg Normal 26.7-34.0 [facility] Comment on above: Performed By: #### C BC #### [facility] [address] [place] [address] [address] Kavon Cardenas MCHC (RBC) [Mass/Vol] 33.2 g/dL Normal 29.9-35.2 [facility] Comment on above: Performed By: #### C BC #### [facility] [address] [place] [address] [address] Kavon Cardenas MCV (RBC) [Entitic vol] 86.0 fL Normal 81.0-99.0 [facility] Comment on above: Performed By: #### C BC #### [facility] [address] [place] [address] [address] Kavon Cardenas MONO # 0.9 103/ul Critically high 0.3-0.8 [facility] Comment on above: Performed By: #### C BC #### [facility] [address] [place] [address] [address] Kavon Cardenas Monocytes/100 WBC (Bld) 6.5 % Normal 1.7-12.0 [facility] Comment on above: Performed By: #### C BC #### [facility] [address] [place] [address] [address] Kavon Cardenas NEUT # 7.9 103/ul Critically high 1.4-6.5 [facility] Comment on above: Performed By: #### C BC #### [facility] [address] [place] [address] [address] Kavon Cardenas Neutrophils/100 WBC (Bld) 59.0 % Normal 43.0-75.0 [facility] Comment on above: Performed By: #### C BC #### [facility] [address] [place] [address] [address] Kavon Cardenas Platelet mean volume (Bld) [Entitic vol] 9.6 fL Normal 9.5-13.5 [facility] Comment on above: Performed By: #### C BC #### [facility] [address] [place] [address] [address] Kavon Cardenas PLT 353 103/ul Normal 150-450 [facility] Comment on above: Performed By: #### C BC #### [facility] [address] [place] [address] [address] Kavon Cardenas RBC 4.35 106/ul Normal 4.20-5.40 [facility] Comment on above: Performed By: #### C BC #### [facility] [address] [place] [address] Dr. Kavon Cardenas WBC 13.5 103/ul Critically high 4.0-11.0 [facility] Comment on above: Performed By: #### C BC #### [facility] [address] [place] [address] Dr. Kavon Cardenas GLYCOHEMOGLOBIN A1Con 2021 ADA RECOMMENDATION SEE BELOW Normal [facility] Comment on above: Result Comment: ADA RECOMMENDED LIMIT 4.0 - 6.0 ADA THERAPEUTIC TARGET < 7.0 ACTION SUGGESTED > 7.0 Performed By: #### B GLYIGM #### [facility] [address] [place] [address] Dr. Kavon Cardenas Glucose [Mass/Vol] 114 mg/dL Normal [facility] Comment on above: Performed By: #### B GLYIGM #### [facility] [address] [place] [address] Dr. Kavon Cardenas HbA1c (Bld) [Mass fraction] 5.6 % Normal 4.5-6.2 [facility] Comment on above: Performed By: #### B GLYIGM #### [facility] [address] [place] [address] Dr. Kavon Cardenas LIPID PROFILEon 06-12-2022 CHOL-HDL RATIO NORM SEE BELOW Normal [facility] Comment on above: Result Comment: 3.3 - 4.4 LOW RISK 4.4 - 7.1 AVERAGE RISK 7.1 - 11.0 MODERATE RISK >11.0 HIGH RISK Performed By: #### F VPCR #### [facility] [address] [place] [address] Dr. Kavon Cardenas Cholesterol [Mass/Vol] 164 mg/dL Normal <=200 [facility] Comment on above: Performed By: #### F VPCR #### [facility] [address] [place] [address] [address] Kavon Cardenas Cholesterol in HDL [Mass/Vol] 37 mg/dL Critically low 40-60 [facility] Comment on above: Performed By: #### F VPCR #### [facility] [address] [place] [address] [address] Kavon Cardenas Cholesterol in LDL [Mass/Vol] 85.4 mg/dL Normal [facility] Comment on above: Performed By: #### F VPCR #### [facility] [address] [address] [address] Kavon Cardenas Cholesterol.total/Chol esterol in HDL [Mass ratio] 4.4 {ratio} Normal [facility] Comment on above: Performed By: #### F VPCR #### [facility] [address] [place] [address] Dr. Kavon Cardenas HDL NORMAL > or = 60 mg/dl - LO W CARDIOVASCULAR RISK <40 mg/dl - HIGH CARDIOVASCULAR RISK Normal [facility] Comment on above: Performed By: #### F VPCR #### [facility] [address] [address] [address] Kavon Cardenas LDL CALC NORMAL SEE BELOW Normal [facility] Comment on above: Result Comment: <100 mg/dl OPTIMAL 100 - 129 mg/dl NEAR OR ABOVE OPTIMAL 130 - 159 mg/dl BORDERLINE HIGH 160 - 189 mg/dl HIGH >190 mg/dl VERY HIGH Performed By: #### F VPCR #### [facility] [address] [address] [address] Kavon Cardenas Triglyceride [Mass/Vol] 208 mg/dL Critically high <=150 [facility] Comment on above: Performed By: #### F VPCR #### [facility] [address] [address] [address] Kavon Cardenas VLDL CALC 41.6 mg/dL Normal [facility] Comment on above: Performed By: #### F VPCR #### [facility] [address] [address] [address] Kavon Cardenas LIVER PROFILEon 06-12-2022 Albumin [Mass/Vol] 3.3 g/dL Critically low 3.4-5.0 e [facility] Comment on above: Performed By: #### F VPCR #### [facility] [address] [address] [address] Kavon Cardenas Albumin/Globulin [Mass ratio] 0.8 {ratio} Normal [facility] Comment on above: Performed By: #### F VPCR #### [facility] [address] [address] [address] Kavon Cardenas ALP [Catalytic activity/Vol] 96 U/L Normal 46-116 [facility] Comment on above: Performed By: #### F VPCR #### [facility] [address] [address] [address] Kavon Cardenas ALT [Catalytic activity/Vol] 19 U/L Normal 14-59 [facility] Comment on above: Performed By: #### F VPCR #### [facility] [address] [place] [address] Dr. Kavon Cardenas AST [Catalytic activity/Vol] 12 U/L Critically low 15-37 [facility] Comment on above: Performed By: #### F VPCR #### [facility] [address] [address] [address] Kavon MIDDLETONI, CONJUGATED 0.1 mg/dL Normal 0.0-0.2 [facility] Comment on above: Performed By: #### F VPCR #### [facility] [address] [address] [address] Kavon Cardenas Bilirubin [Mass/Vol] 0.3 mg/dL Normal 0.2-1.0 [facility] Comment on above: Performed By: #### F VPCR #### [facility] [address] [address] [address] Kavon Cardenas Globulin (S) [Mass/Vol] 4.1 g/dL Normal [facility] Comment on above: Performed By: #### F VPCR #### [facility] [address] [address] [address] Kavon Cardenas Protein [Mass/Vol] 7.4 g/dL Normal 6.4-8.2 [facility] Comment on above: Performed By: #### F VPCR #### [facility] [address] [address] [address] Kavon Cardenas PREG QUANT HCGon 06-12-2022 HCG QUANT 636 mIU/mL Normal [facility] Comment on above: Performed By: #### A 1C #### [facility] [address] [place] [address] Dr. Kavon Cardenas HCG RANGE SEE BELOW Normal [facility] Comment on above: Result Comment: 5-50 0.2-1 WEEK 50-500 1-2 WEEKS 100-5,000 2-3 WEEKS 500-10,000 3-4 WEEKS 1,000-50,000 4-5 WEEKS 10,000-100,000 5-6 WEEKS 15,000-200,000 6-8 WEEKS 10,000-100,000 2-3 MONTHS Performed By: #### A 1C #### [facility] [address] [place] [address] Dr. Kavon Cardenas PROF CHEM 8 (BAS METB)on Anion gap [Moles/Vol] 11.3 mmol/L Normal [facility] Comment on above: Performed By: #### F VPCR #### [facility] [address] [place] [address] Dr. Kavon Cardenas Calcium [Mass/Vol] 9.2 mg/dL Normal 8.5-10.1 [facility] Comment on above: Performed By: #### F VPCR #### [facility] [address] [place] [address] Dr. Kavon Cardenas Chloride [Moles/Vol] 104 mmol/L Normal 98-107 [facility] Comment on above: Performed By: #### F VPCR #### [facility] [address] [place] [address] Dr. Kavon Cardenas CO2 [Moles/Vol] 25.7 mmol/L Normal 21.0-32.0 [facility] Comment on above: Performed By: #### F VPCR #### [facility] [address] [place] [address] Dr. Kavon Cardenas Creatinine [Mass/Vol] 0.81 mg/dL Normal 0.55-1.02 [facility] Comment on above: Performed By: #### F VPCR #### [facility] [address] [address] [address] Kavon Cardenas EGFR-AF [place] CITIZ[place] >60 Normal >=60 [facility] Comment on above: Performed By: #### F VPCR #### [facility] [address] [address] [address] Kavon Cardenas EGFR-NON AF [place] CITIZ[place] >60 Normal >=60 [facility] Comment on above: Performed By: #### F VPCR #### [facility] [address] [address] [address] Kavon Cardenas Glucose [Mass/Vol] 89 mg/dL Normal 74-106 [facility] Comment on above: Performed By: #### F VPCR #### [facility] [address] [place] [address] Dr. Kavon Cardenas Potassium [Moles/Vol] 4.0 mmol/L Normal 3.5-5.1 [facility] Comment on above: Performed By: #### F VPCR #### [facility] [address] [address] [address] Kavon Cardenas Sodium [Moles/Vol] 137 mmol/L Normal 136-145 [facility] Comment on above: Performed By: #### F VPCR #### [facility] [address] [address] [address] Kavon Cardenas Urea nitrogen [Mass/Vol] 8.0 mg/dL Normal 7.0-18.0 [facility] Comment on above: Performed By: #### F VPCR #### [facility] [address] [address] [address] Kavon Cardenas Urea nitrogen/Creatinine [Mass ratio] 9.9 mg/mg Normal [facility] Comment on above: Performed By: #### F VPCR #### [facility] [address] [address] [address] Kavon Cardenas TSHon 06-12-2022 TSH 1.461 uIU/mL Normal 0.358-3.740 [facility] Comment on above: Performed By: #### F VPCR #### [facility] [address] [address] [address] Kavon Cardenas FACTOR V LEIDEN MUTATION RENAN LYSISon 04-10-2022 Factor V Leiden Comment Normal [facility] Comment on above: Result Comment: Resu lt: c.1601G>A ([id number]) - Not Detected . This result is not associated with an increased risk for venous thromboembolism. See Additional Clinical Information and Comments. Additional Clinical Information: Venous thromboembolism is a multifactorial disease influenced by genetic, environmental, and circumstantial risk factors. The c.1601G>A (p. [id number]) variant in the F5 gene, commonly referred [...] c.*97G>A variant and Factor V Leiden (PMID: 88788099). Additional risk factors include but are not [...] health care providers to discuss results at [phone] ([phone]). . Test Details: Variant Analyzed: c.1601G>A (p. [id number]), referred to as Factor V Leiden . [...] developed and its performance characteristics determined by [employer]. It has not been cleared or approved by the Food and Drug Administration. . References: Bruce S, Itzel WOOD, Renny R, Blas WW, Jorge JH; [employer] Professional Practice and Guidelines Committee. Addendum: [place] [employer] consensus statement on factor V Leiden mutation testing. [employer]. 2020Sep 10. doi: 10.1038/o97882-095-68504-a. PMID: 82936556. . Jc GIRALDO. Factor V Leiden Thrombophilia. 1998November 19 [Updated 2017Jul 12]. In: Mendel MP, Epi HH, Jd RA, et al., editors. Alison(R) [Internet]. [place] ([place]): [employer] [facility], [place]ins; 9134-5555. Available from: https://www.ncbi.nlm.nih.gov/books/GOC3435/ . Dimitri S, Itzel WOOD, Estevan X, Jono B, Ian EB, Barbara P, Jose CS; [employer] Laboratory Corporate Ethics Officer Committee. Venous thromboembolism laboratory testing (factor V Leiden and factor II c.*97G>A), 2018 update: a technical standard of the [place] [employer] and [employer] (ACMG). [employer]. 2017;20(12):0828-0431. doi: 10.1038/d46227-921-0613-q. Epub 2017Apr 12. PMID: 05134589. . Kathi Mercer, PhD, [facility] Liv Joseph, PhD Clint Green, PhD, [facility] Willie Manuel, PhD, [facility] Jesus Bradford, PhD, [facility] Amna Roca, PhD, [facility] Cris Odom, PhD, [facility] Sonia Alejo, PhD, FAC Performed By: #### F VPCR #### [facility] [address] [place] [address] Dr. Kavon Cardenas PAP ACOG PANEL 2: 21 to 29on 04-07-2022 . . Normal [facility] Comment on above: Performed By: #### C ARDIGM #### [facility] [address] [place] [address] Dr. Kavon Cardenas Age Gdln ACOG Testing - [facility] Comment on above: Performed By: #### C ARDIGM #### [facility] [address] [address] [address] Kavon Cardenas DIAGNOSIS: Comment [facility] Comment on above: Result Comment: NEGA TIVE FOR INTRAEPITHELIAL LESION OR MALIGNANCY. Performed By: #### C ARDIGM #### [facility] [address] [place] [address] Dr. Kavon Cardenas Methodology: Comment [facility] Comment on above: Result Comment: This liquid based ThinPrep(R) pap test was screened with the use of an image guided system. Performed By: #### C ARDIGM #### [facility] [address] [place] [address] Dr. Kavon Cardenas Note: Comment [facility] Comment on above: Result Comment: The Pap smear is a screening test designed to aid in the detection of premalignant and malignant conditions of the uterine cervix. It is not a diagnostic procedure and should not be used as the sole means of detecting cervical cancer. Both false-positive and false-negative reports do occur. . Performed By: #### C ARDIGM #### [facility] [address] [place] [address] Dr. Kavon Cardenas Performed by: Comment Normal [facility] Comment on above: Result Comment: Barbara Lim Civil Engineering Director (ASCP) Performed By: #### C ARDIGM #### [facility] [address] [place] [address] Dr. Kavon Cardenas Reflex Criteria: Comment [facility] Comment on above: Result Comment: The HPV DNA reflex criteria were not met with this specimen result therefore, no HPV testing was performed. . Performed By: #### C ARDIGM #### [facility] [address] [place] [address] Dr. Kavon Cardenas Specimen adequacy: Comment Normal [facility] Comment on above: Result Comment: Sati sfactory for evaluation. Endocervical and/or squamous metaplastic cells (endocervical component) are present. Performed By: #### C ARDIGM #### [facility] [address] [place] [address] Dr. Kavon Cardenas ANTIPHOSPHOLIPID SYNDROME MS OFILEon 04-06-2022 Anticardiolipin Ab,IgG,Qn <9 Normal 0-14 [facility] Comment on above: Result Comment: Nega tive: <15 Indeterminate: 15 - 20 Low-Med Positive: >20 - 80 High Positive: >80 Performed at: CB Performed By: #### C ARDIGM #### [facility] [address] [place] [address] Dr. Kavon Cardenas Anticardiolipin Ab,IgM,Qn <9 Normal 0-12 [facility] Comment on above: Result Comment: Nega tive: <13 Indeterminate: 13 - 20 Low-Med Positive: >20 - 80 High Positive: >80 Performed at: CB Performed By: #### C ARDIGM #### [facility] [address] [place] [address] Dr. Kavon Cardenas APS Panel Interpretation Comment Normal [facility] Comment on above: Result Comment: Plea se refer to the Coag Studies Interp Report. Performed at: BN Performed By: #### C ARDIGM #### [facility] [address] [place] [address] Dr. Kavon Cardenas aPTT Coag (Bld) [Time] 25.1 s Normal 22.9-30.2 [facility] Comment on above: Result Comment: Perf ormed at: BN Performed By: #### C ARDIGM #### [facility] [address] [place] [address] Dr. Kavon Cardenas Beta-2 Glycoprotein I Ab, IgG <9 Normal 0-20 [facility] Comment on above: Result Comment: The reference interval reflects a 3SD or 99th percentile interval, which is thought to represent a potentially clinically significant result in accordance with the International Consensus Statement on the classification criteria for definitive antiphospholipid syndrome (APS). J Thromb Haem 2006;4:295-306. Performed at: BN Performed By: #### C ARDIGM #### [facility] [address] [place] [address] Dr. Kavon Cardenas Beta-2 Glycoprotein I Ab, IgM <9 Normal 0-32 [facility] Comment on above: Result Comment: The reference interval reflects a 3SD or 99th percentile interval, which is thought to represent a potentially clinically significant result in accordance with the International Consensus Statement on the classification criteria for definitive antiphospholipid syndrome (APS). J Thromb Haem 2006;4:295-306. Performed at: BN Performed By: #### C ARDIGM #### [facility] [address] [place] [address] Dr. Kavon Cardenas dRVVT 42.0 sec Normal 0.0-47.0 [facility] Comment on above: Result Comment: Perf ormed at: BN Performed By: #### C ARDIGM #### [facility] [address] [place] [address] Dr. Kavon Cardenas Hex Phase Phospolipid 4 sec Normal 0-11 [facility] Comment on above: Result Comment: Perf ormed at: BN Performed By: #### C ARDIGM #### [facility] [address] [place] [address] Dr. Kavon Cardenas INR Coag (PPP) [Relative time] 1.0 {INR} Normal 0.9-1.2 [facility] Comment on above: Result Comment: Refe rence interval is for non-anticoagulated patients. . Suggested INR therapeutic range for Vitamin K antagonist therapy: Standard Dose (moderate intensity therapeutic range): 2.0 - 3.0 Higher intensity therapeutic range 2.5 - 3.5 Performed at: BN Performed By: #### C ARDIGM #### [facility] [address] [address] [address] Kavon Cardenas PT Coag (PPP) [Time] 10.1 s Normal 9.1-12.0 [facility] Comment on above: Result Comment: Perf ormed at: BN Performed By: #### C ARDIGM #### [facility] [address] [address] [address] Kavon Cardenas Thrombin Time 16.5 sec Normal 0.0-23.0 [facility] Comment on above: Result Comment: Perf ormed at: BN Performed By: #### C ARDIGM #### [facility] [address] [place] [address] Dr. Kavon Cardenas ANTITHROMBIN ACTIVITYon 03-10 Antithrombin Activity 114 % Normal 75-135 [facility] Comment on above: Result Comment: Dire ct Xa inhibitor anticoagulants such as rivaroxaban, apixaban and edoxaban will lead to spuriously elevated antithrombin activity levels possibly masking a deficiency. Performed By: #### C ARDIGM #### [facility] [address] [place] [address] Dr. Kavon Cardenas B-2 GLYCOPROTEIN AB IGGon Beta-2 Glycoprotein I Ab, IgG <9 Normal 0-20 [facility] Comment on above: Result Comment: The reference interval reflects a 3SD or 99th percentile interval, which is thought to represent a potentially clinically significant result in accordance with the International Consensus Statement on the classification criteria for definitive antiphospholipid syndrome (APS). J Thromb Haem 2006;4:295-306. Performed By: #### A 1C #### [facility] [address] [place] [address] Dr. Kavon Cardenas B2-GLYCOPROTEIN 1 AB IGMon 0 04-06-2022 Beta-2 Glycoprotein I Ab, IgM <9 Normal 0-32 [facility] Comment on above: Result Comment: The reference interval reflects a 3SD or 99th percentile interval, which is thought to represent a potentially clinically significant result in accordance with the International Consensus Statement on the classification criteria for definitive antiphospholipid syndrome (APS). J Thromb Haem 2006;4:295-306. Performed By: #### B GLYIGM #### [facility] [address] [place] [address] Dr. Kavon Carednas LUPUS ANTICOAGULANT W/REFLEX on 04-06-2022 aPTT Coag (Bld) [Time] 35.9 s Normal 0.0-51.9 [facility] Comment on above: Performed By: #### L UPUSRF #### [facility] [address] [place] [address] Dr. Kavon Cardenas dRVVT 39.5 sec Normal 0.0-47.0 [facility] Comment on above: Performed By: #### L UPUSRF #### [facility] [address] [address] [address] Kavon Cardenas Interpretation Comment: Normal [facility] Comment on above: Result Comment: No l upus anticoagulant was detected. Performed By: #### L UPUSRF #### [facility] [address] [place] [address] Dr. Kavon Cardenas PROTEIN C FUNC ACTIVITYon Protein C-Functional 137 % Normal 73-180 [facility] Comment on above: Performed By: #### F VPCR #### [facility] [address] [place] [address] Dr. Kavon Cardenas PROTEIN S ANTIGENon 04-06-20 22 Protein S, Free 99 % Normal 61-136 [facility] Comment on above: Performed By: #### A 1C #### [facility] [address] [place] [address] Dr. Kavon Cardenas Protein S, Total 90 % Normal 60-150 [facility] Comment on above: Result Comment: This test was developed and its performance characteristics determined by [employer]. It has not been cleared or approved by the Food and Drug Administration. Performed By: #### A 1C #### [facility] [address] [place] [address] Dr. Kavon Cardenas ANTICARDIOLIPIN AB (SHORTY) IGG on 04-05-2022 Anticardiolipin Ab,IgG,Qn <9 Normal 0-14 [facility] Comment on above: Result Comment: Nega tive: <15 Indeterminate: 15 - 20 Low-Med Positive: >20 - 80 High Positive: >80 Performed By: #### F VPCR #### [facility] [address] [place] [address] Dr. Kavon Cardenas ANTICARDIOLIPIN AB (SHORTY) IGM on 04-05-2022 Anticardiolipin Ab,IgM,Qn <9 Normal 0-12 [facility] Comment on above: Result Comment: Nega tive: <13 Indeterminate: 13 - 20 Low-Med Positive: >20 - 80 High Positive: >80 Performed By: #### C ARDIGM #### [facility] [address] [address] [address] Kavon Cardenas FREE T4on 04-04-2022 Free T4 [Mass/Vol] 0.91 ng/dL Normal 0.76-1.46 [facility] Comment on above: Performed By: #### C BC #### [facility] [address] [address] [address] Kavon Cardenas GLYCOHEMOGLOBIN A1Con 2021 ADA RECOMMENDATION SEE BELOW Normal [facility] Comment on above: Result Comment: ADA RECOMMENDED LIMIT 4.0 - 6.0 ADA THERAPEUTIC TARGET < 7.0 ACTION SUGGESTED > 7.0 Performed By: #### A 1C #### [facility] [address] [address] [address] Kavon Cardenas Glucose [Mass/Vol] 108 mg/dL Normal [facility] Comment on above: Performed By: #### A 1C #### [facility] [address] [address] [address] Kavon Cardenas HbA1c (Bld) [Mass fraction] 5.4 % Normal 4.5-6.2 [facility] Comment on above: Performed By: #### A 1C #### [facility] [address] [address] [address] Kavon Cardenas TSHon 04-04-2022 TSH 1.208 uIU/mL Normal 0.358-3.740 [facility] Comment on above: Performed By: #### A 1C #### [facility] [address] [address] [address] Kavon Cardenas Vital Signs Date Time Vital Sign Value Performing Clinician Facility 02-03-2025 10:54-0400 Body mass index (BMI) [Ratio] 33.78 kg/m2 David Washington DO Work Phone: [facility] 02-03-2025 10:54-0400 Body weight 92.08 kg David Padmini DO Work Phone: [facility] 02-03-2025 10:54-0400 Diastolic blood pressure 74 mm[Hg] David Padmini DO Work Phone: [facility] 02-03-2025 10:54-0400 Systolic blood pressure 114 mm[Hg] David Padmini DO Work Phone: [facility] 10-30-2024 14:57-0400 Body height 165.1 cm Mikel Ibarra MD Work Phone: [facility] 10-30-2024 14:57-0400 Body mass index (BMI) [Ratio] 36.78 kg/m2 Mikel Ibarra MD Work Phone: [facility] 10-30-2024 14:57-0400 Body temperature 97.81 [degF] Mikel Ibarra MD Work Phone: [facility] 10-30-2024 14:57-0400 Body weight 100.25 kg Mikel Ibarra MD Work Phone: [facility] 10-30-2024 14:57-0400 Diastolic blood pressure 66 mm[Hg] Mikel Ibarra MD Work Phone: [facility] 10-30-2024 14:57-0400 Heart rate 99 /min Mikel Ibarra MD Work Phone: [facility] 10-30-2024 14:57-0400 Respiratory rate 22 /min Mikel Ibarra MD Work Phone: [facility] 10-30-2024 14:57-0400 SaO2% (BldA) [Mass fraction] 98 % Mikel Ibarra MD Work Phone: [facility] 10-30-2024 14:57-0400 Systolic blood pressure 120 mm[Hg] Mikel Ibarra MD Work Phone: [facility] 10-15-2024 13:25-0400 Hourly Rounding Kenny Giov[facility] 10-15-2024 13:25-0400 Promise to Return Kenny Giovani [facility] 10-15-2024 12:25-0400 Hourly Rounding Kenny Giovani [facility] 10-15-2024 12:25-0400 Promise to Return Kenny Giovani [facility] 10-15-2024 11:37-0400 Heart rate 77 /min Kenny Giov[facility] 10-15-2024 11:37-0400 SaO2% (BldA) [Mass fraction] 100 % Kenny Giov[facility] 10-15-2024 11:36-0400 Diastolic blood pressure 71 mm[Hg] Kenny Giov[facility] 10-15-2024 11:36-0400 Mean blood pressure 83 mm[Hg] Kenny Giov[facility] 10-15-2024 11:36-0400 Systolic blood pressure 106 mm[Hg] Kenny Giovani [facility] 10-15-2024 11:36-0400 Body temperature 98.06 [degF] Kenny Giov[facility] 10-15-2024 11:26-0400 Hourly Rounding Kenny Giov[facility] 10-15-2024 11:26-0400 Promise to Return Kenny Giovani [facility] 10-15-2024 07:52-0400 Heart rate 66 /min Kenny Giovani [facility] 10-15-2024 07:52-0400 SaO2% (BldA) [Mass fraction] 100 % Kenny Loaiza[facility] 10-15-2024 07:51-0400 Body temperature 98.06 [degF] Kenny Loaiza[facility] 10-15-2024 07:51-0400 Diastolic blood pressure 79 mm[Hg] Kenny Loaiza[facility] 10-15-2024 07:51-0400 Mean blood pressure 90 mm[Hg] Kenny Loaiza[facility] 10-15-2024 07:51-0400 Systolic blood pressure 113 mm[Hg] Kenny Loaizaer [facility] 10-15-2024 00:40-0400 Blood Pressure Location Kenny Loaizaer [facility] 10-15-2024 00:40-0400 Body temperature 98.06 [degF] Kenny Loaiza[facility] 10-15-2024 00:40-0400 Diastolic blood pressure 63 mm[Hg] Kenny Loaiza[facility] 10-15-2024 00:40-0400 Heart rate 80 /min Kenny Loaizaer [facility] 10-15-2024 00:40-0400 Mean blood pressure 80 mm[Hg] Kenny Vallescker [facility] 10-15-2024 00:40-0400 Respiratory rate 16 /min Kenny Loaizaer [facility] 10-15-2024 00:40-0400 SaO2% (BldA) [Mass fraction] 99 % Kenny Giovani [facility] 10-15-2024 00:40-0400 Systolic blood pressure 115 mm[Hg] Kenny Loaizaer [facility] 10-14-2024 19:00-0400 Body temperature 97.88 [degF] Kenny Loaizaer [facility] 10-14-2024 19:00-0400 Mean blood pressure 86 mm[Hg] Kenny Loaizaer [facility] 10-14-2024 19:00-0400 Respiratory rate 14 /min Kenny Loaizaer [facility] 10-14-2024 15:25-0400 Mean blood pressure 89 mm[Hg] Kenny Loaizaer [facility] 10-14-2024 15:25-0400 Body temperature 98.42 [degF] Kenny Loaizaer [facility] 10-14-2024 10:58-0400 Body temperature 98.42 [degF] Kenny Loaizaer [facility] 10-14-2024 07:37-0400 Respiratory rate 16 /min Kenny Loaizaer [facility] 10-13-2024 23:45-0400 Blood Pressure Location Kenny Loaizaer [facility] 10-13-2024 23:45-0400 Mean blood pressure 86 mm[Hg] Kenny Loaizaer [facility] 10-12-2024 17:40-0400 Heart rate 97 /min Kenny Vallescker [facility] 10-12-2024 12:00-0400 Heart rate 102 /min Kenny Vallescker [facility] 10-12-2024 10:00-0400 Heart rate 81 /min Kenny Vallescker [facility] 08-04-2024 13:16-0500 Body height 165.1 cm Mikel Ibarra MD Work Phone: [facility] 08-04-2024 13:16-0500 Body mass index (BMI) [Ratio] 36.44 kg/m2 Mikel Ibarra MD Work Phone: [facility] 08-04-2024 13:16-0500 Body temperature 98.2 [degF] Mikel Ibarra MD Work Phone: [facility] 08-04-2024 13:16-0500 Body weight 99.34 kg Mikel Ibarra MD Work Phone: [facility] 08-04-2024 13:16-0500 Diastolic blood pressure 58 mm[Hg] Mikel Ibarra MD Work Phone: [facility] 08-04-2024 13:16-0500 Heart rate 95 /min Mikel Ibarra MD Work Phone: [facility] 08-04-2024 13:16-0500 Respiratory rate 22 /min Mikel Ibarra MD Work Phone: [facility] 08-04-2024 13:16-0500 SaO2% (BldA) [Mass fraction] 97 % Mikel Ibarra MD Work Phone: [facility] 08-04-2024 13:16-0500 Systolic blood pressure 124 mm[Hg] Mikel Ibarra MD Work Phone: [facility] 05-10-2024 01:30-0400 Diastolic blood pressure 62 mm[Hg] Jimmy Hay MD Work Phone: [facility] 05-10-2024 01:30-0400 Heart rate 104 /min Jimmy Hay MD Work Phone: [facility] 05-10-2024 01:30-0400 Respiratory rate 18 /min Jimmy Hay MD Work Phone: [facility] 05-10-2024 01:30-0400 SaO2% (BldA) [Mass fraction] 95 % Jimmy Hay MD Work Phone: [facility] 05-10-2024 01:30-0400 Systolic blood pressure 115 mm[Hg] Jimmy Hay MD Work Phone: [facility] 05-09-2024 20:46-0400 Body height 165.1 cm Jimmy Hay MD Work Phone: [facility] 05-09-2024 20:46-0400 Body mass index (BMI) [Ratio] 35.78 kg/m2 Jimmy Hay MD Work Phone: [facility] 05-09-2024 20:46-0400 Body temperature 98.4 [degF] Jimmy Hay MD Work Phone: [facility] 05-09-2024 20:46-0400 Body weight 97.52 kg Jimmy Hay MD Work Phone: [facility] 04-30-2024 08:46-0400 Body height 165.1 cm Mikel Ibarra MD Work Phone: [facility] 04-30-2024 08:46-0400 Body mass index (BMI) [Ratio] 35.94 kg/m2 Mikel Ibarra MD Work Phone: [facility] 04-30-2024 08:46-0400 Body temperature 97.5 [degF] Mikel Ibarra MD Work Phone: [facility] 04-30-2024 08:46-0400 Body weight 97.98 kg Mikel Ibarra MD Work Phone: [facility] 04-30-2024 08:46-0400 Diastolic blood pressure 86 mm[Hg] Mikel Ibarra MD Work Phone: [facility] 04-30-2024 08:46-0400 Heart rate 86 /min Mikel Ibarra MD Work Phone: [facility] 04-30-2024 08:46-0400 Respiratory rate 20 /min Mikel Ibarra MD Work Phone: [facility] 04-30-2024 08:46-0400 SaO2% (BldA) [Mass fraction] 97 % Mikel Ibarra MD Work Phone: [facility] 04-30-2024 08:46-0400 Systolic blood pressure 104 mm[Hg] Mikel Ibarra MD Work Phone: [facility] Encounters Encounter Date Encounter Type Care Provider Facility Start: 04-08-2025 ambulatory Cesar Montez acility:[facility] Start: 02-03-2025 End: 02-03-2025 Bamboo flowsheet David Padmini DO Work Phone: [facility] Start: 02-03-2025 End: 02-03-2025 Bamboo flowsheet David Padmini DO Work Phone: [facility] Start: 02-03-2025 End: 02-03-2025 Office outpatient visit 15 minutes David Padmini DO Work Phone: [facility] Comment on above: Encounter for fertil ity planning; Follow-up exam Start: 02-03-2025 End: 02-03-2025 ambulatory DAVID PADMINI Not Available Start: 11-21-2024 End: 11-21-2024 Clinisync Result Encounter Generic External Data Provider [facility] Unsolicited Start: 11-21-2024 End: 11-21-2024 Clinisync Result Encounter Generic External Data Provider [facility] Unsolicited Start: 11-19-2024 End: 11-19-2024 Clinisync Result Encounter Generic External Data Provider [facility] Unsolicited Start: 11-19-2024 End: 11-19-2024 Clinisync Result Encounter Generic External Data Provider [facility] Unsolicited Start: 10-30-2024 End: 10-30-2024 Office outpatient visit 25 minutes Mikel Ibarra MD Work Phone: [facility] Comment on above: Pyelonephritis (Prim maury Dx); Major depressive disorder, recurrent episode, moderate (CMS/HCC); Generalized anxiety disorder (CMS/HCC); Mild persistent asthma without complication (CMS/HCC); Mild asthma without complication, unspecified whether persistent (CMS/HCC); Urticaria due to cold and heat Start: 10-30-2024 End: 10-30-2024 ambulatory MIKEL IBARRA Not Available Start: 10-30-2024 End: 10-30-2024 Bamboo flowsheet Mikel Ibarra MD Work Phone: [facility] Start: 10-30-2024 End: 10-30-2024 Bamboo flowsheet Mikel Ibarra MD Work Phone: [facility] Start: 10-12-2024 End: 10-15-2024 Evaluation and management of inpatient Kenny Matute Facility:[facility] Start: 10-12-2024 Emergency department patient visit Ynes Gonzalezlashell Facility:[facility] Start: 10-12-2024 End: 10-15-2024 Evaluation and management of inpatient Kenny Matute [facility] Start: 09-29-2024 End: 10-07-2024 Clinisync Result Encounter David Padmini DO Work Phone: [facility]solicited Start: 09-29-2024 End: 10-07-2024 Clinisync Result Encounter David Padmini DO Work Phone: [facility]solic[facility] Start: 09-29-2024 End: 09-29-2024 ambulatory DAVID PADMINI Not Available Start: 08-04-2024 End: 08-04-2024 Bamboo flowsheet Mikel Ibarra MD Work Phone: [facility] Start: 08-04-2024 End: 08-04-2024 Bamboo flowsheet Mikel Ibarra MD Work Phone: [facility] Start: 08-04-2024 End: 08-04-2024 Office outpatient visit 25 minutes Mikel Ibarra MD Work Phone: [facility] Comment on above: Major depressive dis order, recurrent episode, moderate (CMS/HCC) (Primary Dx); Generalized anxiety disorder (CMS/HCC); Primary insomnia; Mild persistent asthma without complication (CMS/HCC); Class 2 obesity due to excess calories without serious comorbidity with body mass index (BMI) of 36.0 to 36.9 in adult Start: 08-04-2024 End: 08-04-2024 ambulatory MIKEL IBARRA Not Available Start: 05-09-2024 End: 05-10-2024 Emergency department patient visit Jimmy Hay MD Work Phone: [facility] Comment on above: Exacerbation of asth ma, unspecified asthma severity, unspecified whether persistent (Primary Dx) Start: 04-30-2024 End: 04-30-2024 Bamboo flowsheet Mikel Ibarra MD Work Phone: [facility] Start: 04-30-2024 End: 04-30-2024 Bamboo flowsheet Mikel Ibarra MD Work Phone: [facility] Start: 04-30-2024 End: 04-30-2024 Office outpatient visit 25 minutes Mikel Ibarra MD Work Phone: [facility] Comment on above: Major depressive dis order, recurrent episode, moderate (CMS/HCC) (Primary Dx); Generalized anxiety disorder (CMS/HCC); Primary insomnia; Class 2 obesity due to excess calories without serious comorbidity with body mass index (BMI) of 35.0 to 35.9 in adult Start: 04-30-2024 End: 04-30-2024 ambulatory MIKEL IBARRA Not Available Start: 03-25-2024 End: 03-25-2024 Telephone encounter Mikel Ibarra MD Work Phone: [facility] Start: 03-12-2024 End: 03-12-2024 Refill Mikel Ibarra MD Work Phone: [facility] Comment on above: Obesity (BMI 30-39.9 ) Start: 02-15-2024 End: 02-15-2024 ambulatory MIKEL IBARRA Not Available Start: 11-14-2022 End: 11-15-[address] DAVID WASHINGTON . Facility:[facility] Start: 11-01-2022 End: 11-02-2022 ambulatory MARGIE BROWN . Facility:[facility] Start: 10-25-2022 End: 10-26-2022 ambulatory MARGIE BROWN . Facility:[facility] Start: 10-23-2022 End: 10-23-[address] DYLON CHAPMAN . Facility:[facility] Start: 10-13-[address] DAVID WASHINGTON . Facili ty:[facility] Start: 10-11-2022 End: 10-12-2022 ambulatory [facility] Candelaria [facility] Start: 10-11-2022 End: 10-11-2022 Subsequent hospital visit by physician Jimmy Hay MD Work Phone: [facility] Start: 09-19-2022 End: 09-19-[address] DAVID WASHINGTON . Facility:[facility] Start: 09-17-2022 End: 09-17-2022 ambulatory ROBERT GOLDBERG . Facility:[facility] Start: 09-11-2022 End: 09-12-[address] DOCTOR CLIFTON Facility:[facility] Start: 09-06-2022 End: 09-07-2022 ambulatory JIMMY D [facility] Start: 09-06-2022 End: 09-06-2022 Subsequent hospital visit by physician Jimmy Hay MD Work Phone: [facility] Start: 07-31-2022 End: 08-01-[address] DAVID WASHINGTON . Facility:[facility] Start: 07-14-2022 End: 07-14-[address] DAVID WASHINGTON . Facility:[facility] Start: 07-14-2022 End: 07-15-[address] DAVID WASHINGTON . Facility:[facility] Start: 06-14-2022 End: 07-09-[address] DAVID WASHINGTON . Facility:[facility] Start: 06-13-2022 Encounter for genera l adult medical examination without abnormal findings DR MIKEL IBARRA [facility] Start: 06-12-2022 End: 06-13-[address] MIKEL IBARRA Facility:[facility] Start: 06-12-2022 End: 06-13-2022 Encounter for general adult medical examination without abnormal findings DR MIKEL IBARRA Facility:[facility] Start: 04-04-2022 End: 04-05-[address] DAVID WASHINGTON . Facility:[facility] Start: 03-30-2022 End: 03-30-[address] DAVID WASHINGTON . Facility: Procedures Date Procedure Procedure Detail Performing Clinician Start: 11-21-2024 [facility] PREG QUANT HCG Core y Padmini DO Work Phone: Start: 11-19-2024 [facility] PREG QUANT HCG Core y Padmini DO Work Phone: Start: 09-29-2024 IGP,APTIMA HPV,AGE GDLN David Padmini DO Work Phone: Start: 09-29-2024 Microscopic observat ion [Identifier] in Cervix by Cyto stain Mikel Ibarra MD Work Phone: Start: 05-10-2024 LACTATE, SEPSIS Dylon Valadez PA-C Work Phone: Start: 05-09-2024 LACTATE, SEPSIS Dylon QUIJANO-Karoline Work Phone: Start: 05-09-2024 Radiologic exam ches t single view Dylon Valadez PA-C Work Phone: Start: 05-09-2024 COVID-19 & INFLUENZA COMBO ([facility]) Dylon Valadez PA-C Work Phone: Start: 05-09-2024 End: 05-09-2024 Comprehensive metabolic panel Dylon Valadez PA-C Work Phone: Start: 05-09-2024 End: 05-09-2024 Ecg routine ecg w/least 12 lds w/i&r Talib Dixon MD Work Phone: Start: 05-09-2024 End: 05-09-2024 Urine test visual color cmprsn meths Dylon Valadez PA-C Work Phone: Start: 10-11-2022 Blood count reticulo cyte automated Jono Nelson MD Work Phone: Start: 09-19-2022 Microscopic observat ion [Identifier] in Cervix by Cyto stain Mikel Ibarra MD Work Phone: Appendectomy Kenny fong [facility] Lalito Matute Plan of Treatment Date Care Activity Detail Author Start: 09-29-2029 Screening for malign ant neoplasm of cervix [facility] Start: 09-20-2027 Screening for malign ant neoplasm of cervix [facility] Start: 10-05-2025 End: 10-05-2025 Patient encounter procedure [facility] Start: 05-05-2025 End: 05-05-2025 Patient encounter procedure 05/05/2025 2:45 PM EDT Office Visit [facility] [address] [place] [phone] Mikel Ibarra MD [address] [place] [phone] [facility] Start: 03-09-2025 Influenza vaccination N [facility] Start: 02-03-2025 End: 02-03-2025 Patient encounter procedure [facility] Comment on above: Arrived Start: 10-30-2024 End: 10-30-2024 Patient encounter procedure 10/30/2024 2:45 PM EDT Office Visit [facility] [address] [place] [phone] Mikel Ibarra MD [address] [place] [phone] Arrived [facility] Comment on above: Arrived Start: 09-29-2024 End: 09-29-2024 Patient encounter procedure 09/29/2024 10:00 AM EDT Office Visit [facility] [address] [place] [phone] David Washington DO [address] [place] [address] [facility] Start: 09-04-2024 End: 09-04-2024 Patient encounter procedure 09/04/2024 1:30 PM EST Office Visit [facility] [address] [place] [address] Mikel Ibarra MD [address] [place] [phone] [facility] Start: 08-04-2024 End: 08-04-2024 Patient encounter procedure [facility] Comment on above: Arrived Start: 04-30-2024 End: 04-30-2024 Patient encounter procedure 04/30/2024 8:30 AM EDT Office Visit [facility] [address] [place] [address] Mikel Ibarra MD [address] [place] [phone] Arrived [facility] Comment on above: Arrived Start: 03-17-2024 End: 03-17-2024 Patient encounter procedure 03/17/2024 8:15 AM EDT Office Visit [facility] [address] [place] [address] Mikel Ibarra MD [address] [place] [address] [facility] Start: 03-09-2024 COVID-19 Vaccine () COVID-19 Vaccine () [facility] Start: 03-09-2024 Influenza vaccination Influenza Vacc ine (#1) [facility] Start: 02-07-2024 Influenza vaccination Flu vaccine (# 1) [facility] Start: 02-06-2023 Influenza vaccination Flu vacc ine (Season Ended) [facility] Start: 2022 Screening for malign ant neoplasm of cervix [facility] Start: 10-25-2022 End: 10-25-2022 Patient encounter procedure 10/25/2022 Routine Perinatology [facility] Start: 09-27-2022 End: 09-27-2022 Patient encounter procedure 09/27/2022 Routine Perinatology [facility] Start: 02-06-2022 Influenza vaccination Flu vaccine (# 1) [facility] Start: 01-27-2022 Hemoglobin A1c measurement A1C test (Diabetic or Prediabetic) [facility] Start: 2013 Screening for malign ant neoplasm of cervix Pap smear [facility] Start: 12-05-2011 DTaP/Tdap/Td vaccine (1 - Tdap) DTaP/Tdap/Td vaccine (1 - Tdap) [facility] Start: 12-05-2011 Hepatitis B vaccine (1 of 3 - 19+ 3-dose series) Hepatitis B vaccine (1 of 3 - 19+ 3-dose series) [facility] Start: 2010 Hepatitis C screening Hepatitis C sc reen [facility] Start: 12-05-2007 HIV screening HIV screen [facility] Start: 2005 Varicella vaccine (1 of 2 - 13+ 2-dose series) Varicella vaccine (1 of 2 - 13+ 2-dose series) [facility] Start: 2004 Depression Screen Depression Screen [facility] Start: 1993 Varicella vaccine (1 of 2 - 2-dose childhood series) Varicella vaccine (1 of 2 - 2-dose childhood series) [facility] Start: 06-06-1993 COVID-19 Vaccine (#1) COVID-19 Vacci ne (#1) [facility] End: 09-06-2022 Alpha Fetoprotein, Maternal [email or web address] Work Phone: Comment on above: Once for 1 Occurrenc es starting 09/06/2022 until 09/06/2022 EKG 12 Lead [facility] Work Phone: End: 09-06-2022 Lead, Blood [email or web address] Work Phone: Comment on above: Once for 1 Occurrenc es starting 09/06/2022 until 09/06/2022 End: 10-11-2022 Lead, Blood [email or web address] Work Phone: Comment on above: Once for 1 Occurrenc es starting 10/11/2022 until 10/11/2022 End: 10-11-2022 Path Review, Smear [email or web address] Work Phone: Comment on above: Once for 1 Occurrenc es starting 10/11/2022 until 10/11/2022 End: 09-06-2022 Prothrombin Gene Mutation [email or web address] Work Phone: Comment on above: Once for 1 Occurrenc es starting 09/06/2022 until 09/06/2022 End: 09-06-2022 Signature Microarray [email or web address] Work Phone: Comment on above: Once for 1 Occurrenc es starting 09/06/2022 until 09/06/2022 Payers Date Payer Category Payer Private Health Insurance [id number] 2024 Medicaid [place] [id number] 2024-Present [address] [address] [place] [address] [id number] .[id number] 2023 Medicaid [id number] 2022 Medicaid [id number] [id number] .7.3.894456.315 2022 Medicaid [id number] 1.2.840.542846.1.13.239.2 .7.3.799574.315 1992 Unknown [id number] 2.16.840.1.605818.3.579.2 .593 1992 Unknown [id number] 2.16.840.1.718929.3.579.2 .593 1992 Unknown [id number] 2.16.840.1.273429.3.579.2 .593 1992 Unknown [id number] 2.16.840.1.560125.3.579.2 593 1992 Unknown [id number] 2.16.840.1.133040.3.579.2 59 1992 Unknown [id number] 2.16.840.1.332309.3.579.2 .59 1992 Unknown [id number] 2.16.840.1.970536.3.579.2 59 1992 Unknown [id number] 2.16.840.1.928688.3.579.2 593 1992 Unknown [id number] 2.16.840.1.402262.3.579.2 .593 1992 Unknown [id number] 2.16.840.1.674968.3.579.2 .593 1992 Unknown [id number] 2.16.840.1.545886.3.579.2 .593 1992 Unknown [id number] 2.16.840.1.013987.3.579.2 593 1992 Unknown [id number] 2.16.840.1.392960.3.579.2 .593 1992 Unknown [id number] 2.16.840.1.352078.3.579.2 .593 1992 Unknown [id number] 2.16.840.1.659437.3.579.2 .593 1992 Unknown [id number] 2.16.840.1.883813.3.579.2 .175 1992 Unknown [id number] 2.16.840.1.741175.3.579.2 .175 1992 Unknown [id number] 2.16.840.1.795446.3.579.2 .727 1992 Unknown [id number] 2.16.840.1.255523.3.579.2 .727 1992 Unknown [id number] 2.16.840.1.056595.3.579.2 .727 1992 Unknown [id number] 2.16.840.1.361212.3.579.2 .727 1992 Unknown [id number] 2.16.840.1.524373.3.579.2 .727 1992 Unknown [id number] 2.16.840.1.583207.3.579.2 .1259 1992 Unknown [id number] 2.16.840.1.065700.3.579.2 .1259 1992 Unknown [id number] 2.16840.1.286277.3.579.2 .1259 1992 Unknown [id number] 2.16.840.1.113872.3.579.2 .1259 1992 Unknown [id number] 2.16.840.1.124198.3.579.2 .1259 1992 Unknown [id number] 2.16.840.1.630984.3.579.2 .1259 1959 Private Health Insurance [id number] [id number] .7.3.748677.315 1959 Self-pay Unknown [id number] 2.16.840.1.490940.3.579.2 .593 Social History Date Type Detail Facility Start: 09-06-2022 End: 12-16-2022 Tobacco smoking status NHIS Never smoked tobacco [facility] Phone: Start: 09-06-2022 End: 12-16-2022 Tobacco use and exposure Smokeless tobacco non-user [facility] Phone: Start: 09-06-2022 End: 02-03-2025 Alcohol intake Lifetime non-drinker (finding) MUKESH [employer] Phone: Start: 05-24-2022 Ducatt ALBERTO [employer] Phone: Start: 1990 Sex Assigned At Not on file B ON [employer] Phone: Start: 11-09-2023 End: 10-30-2024 History of Social function [facility] Start: 11-09-2023 End: 10-30-2024 Social connection and isolation panel [facility] Do you belong to any clubs or organizations such as protestant groups, unions, fraternal or athletic groups, or school groups? No [facility] How often do you att end meetings of the clubs or organizations you belong to? Patient declined [facility] Are you now , , , , never or living with a partner? [facility] How often to you hav e a drink containing alcohol? Monthly or less [facility] How many standard drinks containing alcohol do you have on a typical day? 1 or 2 [facility] How often do you hav e 6 or more drinks on 1 occasion? Never [facility] How hard is it for y ou to pay for the very basics like food, housing, medical care, and heating Somewhat hard [facility] Do you feel stress - tense, restless, nervous, or anxious, or unable to sleep at night because your mind is troubled all the time - these days [OSQ] Very much [facility] (I/We) worried wheth er (my/our) food would run out before (I/we) got money to buy more. Sometimes true [facility] Start: 1990 Sex assigned at Female [facility] Start: 11-23-2022 Gender identity Identifies as female gender (finding) [facility] Start: 11-23-2022 Sexual orientation Heterosexual (fin ding) [facility] Tobacco smoking status [facility] Start: 10-20-2009 Sex Female (finding) [facility] NEGATED: Highlighted rowStart: NINF History of tobacco use Passive smoker [facility] [employer] Work Phone: Functional Status Date Assessment Result Facility 10-12-2024 Functional Status No [facility] 10-12-2024 Functional Status [facility] Clinical Notes 03-25-2024 to 02-03-2025 Aleksandra Comer LPN - 02/03/2025 10:20 AM EDVanna Ibarra MD - 10/30/2024 3:23 PM Nancy Ibarra MD - 10/30/2024 3:23 PM Nancy Ibarra MD - 10/30/2024 3:23 PM EDT Note Date & Type Note Facility 02-03-2025 History of Presen t illness Narrative Reason for Appointment: Patient ID: Dilma Santa is a 34 y.o. female who presents for Infertility and Follow-up Patient presents today for Consult appointment. MEDICATIONS Current Outpatient Medications Medication Instructions albuterol HFA 90 mcg/act inhaler 2 puffs, Inhalation, Every 4 hours PRN budesonide (Pulmicort Flexhaler) 90 MCG/ACT inhaler 2 puffs, Inhalation, 2 times daily RT, Rinse mouth with water after use to reduce aftertaste and incidence of candidiasis. Do not swallow. fexofenadine (MEGAN) 180 mg, Oral, Daily PRN montelukast (SINGULAIR) 10 mg, Oral, Daily ALLERGIES Allergies Allergen Reactions Cefdinir Itching PROBLEMS Active Ambulatory Problems Diagnosis Date Noted Mild persistent asthma without complication (HCC) 01/05/2023 Primary insomnia 10/02/2023 Generalized anxiety disorder 11/16/2023 Major depressive disorder, recurrent episode, moderate (HCC) 11/16/2023 Urticaria due to cold and heat 11/16/2023 Class 2 obesity due to excess calories without serious comorbidity with body mass index (BMI) of 36.0 to 36.9 in adult 11/16/2023 Pyelonephritis 10/30/2024 Resolved Ambulatory Problems Diagnosis Date Noted Acute sinusitis, unspecified 11/16/2023 Past Medical History: Diagnosis Date Asthma (HCC) JAMES (generalized anxiety disorder) Insomnia MDD (major depressive disorder) Pelvic pain HISTORY PAST MEDICAL HISTORY SOCIAL HISTORY Past Medical History: Diagnosis Date Asthma (HCC) JAMES (generalized anxiety disorder) Insomnia MDD (major depressive disorder) Pelvic pain Social History Tobacco Use Smoking status: Never Smokeless tobacco: Never Substance Use Topics Alcohol use: Never Drug use: Never FAMILY HISTORY Family History Problem Relation Name Age of Onset Hypertension Mother SURGICAL HISTORY Past Surgical History: Procedure Laterality Date APPENDECTOMY DILATION AND CURETTAGE OF UTERUS PAP SMEAR 09/19/2022 REVIEW OF SYSTEMS Review of Systems: Review of Systems Constitutional: Negative. HENT: Negative. Eyes: Negative. Respiratory: Negative. Cardiovascular: Negative. Gastrointestinal: Negative. Genitourinary: Negative. Musculoskeletal: Negative. Skin: Negative. Neurological: Negative. All other systems reviewed and are negative. Hematological: Negative. Endocrine: Negative. Allergic/Immunologic: Negative. OBJECTIVE Objective: Physical Exam Constitutional: Appearance: Normal appearance. She is well-developed. Cardiovascular: Rate and Rhythm: Normal rate and regular rhythm. Pulmonary: Effort: Pulmonary effort is normal. Breath sounds: Normal breath sounds. Abdominal: General: Bowel sounds are normal. There is no distension. Palpations: Abdomen is soft. Tenderness: There is no abdominal tenderness. There is no guarding or rebound. Musculoskeletal: General: No swelling. Normal range of motion. Right lower leg: No edema. Left lower leg: No edema. Neurological: Mental Status: She is alert and oriented to person, place, and time. Skin: General: Skin is warm and dry. Psychiatric: Mood and Affect: Mood normal. Behavior: Behavior normal. Vitals and nursing note reviewed. Exam conducted with a pets salesperson present. Vitals: Estimated body mass index is 33.78 kg/m as calculated from the following: Height as of 10/30/24: 5' 5 . Weight as of this encounter: 203 lb. BP: 114/74 No LMP recorded. ASSESSMENT & PLAN ICD-10-CM 1. Encounter for fertility planning Z31.89 2. Follow-up exam Z09 Pt presents to discuss fertility. Pt does not have a partner. Pt will return for fertility counseling in the future. Documented by Aleksandra Comer LPN on behalf of: David Washington DO documented in this encounter [facility] 10-30-2024 History of Presen t illness Narrative Associated Problem(s): Pyelonephritis Recent infection and improved. Increase water intake. Associated Problem(s): Mild persistent asthma without complication (CMS/HCC) Symptoms controlled with pulmicort. Use albuterol PRN. Associated Problem(s): Major depressive disorder, recurrent episode, moderate (CMS/HCC) Mood doing well without medication and monitor. Associated Problem(s): Generalized anxiety disorder (CMS/HCC) Mood doing well without medication and monitor. Images from the original note were not included. Subjective Patient ID: Dilma Santa is a 33 y.o. female who presents for Follow-up ([facility] f/up sepsis ). Hospital follow up from 10/12-10/15 for pyelonephritis and sepsis. Developed fever and severe fatigue. No dysuria or frequency. To ER and found sepsis. UA showed UTI. Started vanco and rocephin. Gradually improved. Blood culture with E. Coli and discharged with cefdinir. Feels well and no symptoms. Stopped all medication several months ago. In new relationship and mentally much better. Not as down or sad. Not as stressed or overwhelmed. Overall doing well without meds. Asthma stable and no SOB or cough with exertion. Allergies controlled with medication. No congestion or rhinorrhea. No WISE or sinus pressure. Ears not plugged or popping. Review of Systems Respiratory: Negative for cough, shortness of breath and wheezing. Cardiovascular: Negative for chest pain and palpitations. Gastrointestinal: Negative for abdominal pain, diarrhea, nausea and vomiting. Genitourinary: Negative for dysuria. Objective Physical Exam Constitutional: General: She is not in acute distress. Appearance: Normal appearance. HENT: Head: Normocephalic. Right Ear: Tympanic membrane normal. Left Ear: Tympanic membrane normal. Eyes: Extraocular Movements: Extraocular movements intact. Pupils: Pupils are equal, round, and reactive to light. Cardiovascular: Rate and Rhythm: Normal rate and regular rhythm. Heart sounds: No murmur heard. No friction rub. No gallop. Pulmonary: Effort: Pulmonary effort is normal. Breath sounds: Normal breath sounds. No wheezing, rhonchi or rales. Abdominal: General: Bowel sounds are normal. There is no distension. Palpations: Abdomen is soft. Tenderness: There is no abdominal tenderness. There is no guarding or rebound. Musculoskeletal: Cervical back: Neck supple. Right lower leg: No edema. Left lower leg: No edema. Neurological: Mental Status: She is alert. Assessment/Plan Problem List Items Addressed This Visit Mild persistent asthma without complication (CMS/HCC) Symptoms controlled with pulmicort. Use albuterol PRN. Relevant Medications albuterol HFA 90 mcg/act inhaler budesonide (Pulmicort Flexhaler) 90 MCG/ACT inhaler Generalized anxiety disorder (CMS/HCC) Mood doing well without medication and monitor. Major depressive disorder, recurrent episode, moderate (CMS/HCC) Mood doing well without medication and monitor. Urticaria due to cold and heat Relevant Medications fexofenadine (Megan) 180 MG tablet montelukast (Singulair) 10 MG tablet Pyelonephritis - Primary Recent infection and improved. Increase water intake. Other Visit Diagnoses Mild asthma without complication, unspecified whether persistent (CMS/HCC) Relevant Medications albuterol HFA 90 mcg/act inhaler documented in this encounter [facility] 10-21-2024 Note Microbiology PROCEDURE: Blood Culture Charcoal [R1] SOURCE: Blood BODY SITE: Arm L COLLECTED DATE/TIME: 10/14/2024 11:13 EDT RECEIVED DATE/TIME: 10/14/2024 11:46 EDT START DATE/TIME: 10/14/2024 11:46 EDT FREE TEXT SOURCE: LEE ANN PACK, Rere LOW MD, Rere FINAL REPORTS Final Report [] Verified Date/Time: 10/21/2024 12:00 EDT No growth at 7 days. Performing Locations R1: This [facility] performed at: [facility], [address] [place] [address], [address] [place] [address], [phone] [place] [address] Comment on above: Performed By: #### 1 [id number] #### [facility] [address] [place] [id number] 10-21-2024 Note Microbiology PROCEDURE: Blood Culture Charcoal [R1] SOURCE: Blood BODY SITE: Arm R COLLECTED DATE/TIME: 10/14/2024 11:05 EDT RECEIVED DATE/TIME: 10/14/2024 11:47 EDT START DATE/TIME: 10/14/2024 11:47 EDT FREE TEXT SOURCE: LEE ANN PACK, Rere LOW MD, Rere FINAL REPORTS Final Report [] Verified Date/Time: 10/21/2024 12:00 EDT No growth at 7 days. Performing Locations R1: This test was performed at: [facility], [address] [place] [address], [address] [place] [address], [phone] [place] [address] Comment on above: Performed By: #### 1 [id number] #### [facility] [address] [place] [id number] 10-16-2024 Note Microbiology PROCEDURE: Blood Culture Charcoal [R1] SOURCE: Blood BODY SITE: Arm L COLLECTED DATE/TIME: 10/12/2024 12:23 EDT RECEIVED DATE/TIME: 10/12/2024 12:34 EDT START DATE/TIME: 10/12/2024 12:34 EDT FREE TEXT SOURCE: Stefan HILL, Bing Lemos. Stefan HILL, Bing Lemos. FINAL REPORTS Final Report [] Verified Date/Time: 10/16/2024 10:53 EDT Staphylococcus epidermidis In 2 of 2 blood culture bottles drawn. Isolated from aerobic and anaerobic bottles Preliminary gram stain of gram positive cocci in clusters Result called to Dr. Low by [facility] and results read back for confirmation on 10/14/2024 08:06:24 SUSCEPTIBILITY RESULTS LEGEND: S=Susceptible, N/R=Not Reported, Blank=Data not available, or drug not advisable or tested, I=Intermediate, ESBL=Extended spectrum beta-lactamase, R=Resistant, TFG=Thymidine-dependent strain, JUANCARLOS=Beta-lactamase positive, EDGAR=mcg/m;(mg/L), S*=Predicted susceptible interp, R*=Predicted resistant interp Staepi Antibiotic EDGAR Dilutn EDGAR Interp Amoxicillin/ <=4/2 S Clavulanate Ampicillin <=2 JUANCARLOS Ampicillin/ <=8/4 S Sulbactam Azithromycin <=2 S Cefazolin <=8 S Ciprofloxacin <=1 S Clindamycin <=0.25 S Daptomycin <=1 S Erythromycin <=0.5 S Gentamicin <=4 S Levofloxacin <=1 S Linezolid <=2 S Oxacillin <=0.25 S Penicillin 0.25 JUANCARLOS Rifampin <=1 S Tetracycline <=4 S Trimethoprim/ <=0.5/9.5 S Sulfa Vancomycin <=0.5 S Performing Locations R1: This test was performed at: [facility], [address] [place] [address], [id number] , , [facility] Comment on above: Performed By: #### 1 [id number] #### [facility] [address] [place] [id number] 10-15-2024 Hospital Discharg e instructions Patient Education 10/15/2024 12:07:12 Sepsis, Diagnosis, Adult Sepsis, Diagnosis, Adult Sepsis is a serious bodily reaction to an infection. The infection that triggers sepsis may be from a bacteria, virus, or fungus. Sepsis can result from an infection in any part of your body. Infections that commonly lead to sepsis include skin, lung, and urinary tract infections. Sepsis is a medical emergency that must be treated right away in a hospital. In severe cases, it can lead to septic shock. Septic shock can weaken your heart and cause your blood pressure to drop. This can cause your central nervous system and your body's organs to stop working. What are the causes? This condition is caused by a severe reaction to infections from bacteria, viruses, or fungus. The germs that most often lead to sepsis include: Escherichia coli (E. coli) bacteria. Staphylococcus aureus (staph) bacteria. Some types of Streptococcus bacteria. The most common infections affect these organs: The lung (pneumonia). The kidneys or bladder (urinary tract infection). The skin (cellulitis). The bowel, gallbladder, or pancreas. What increases the risk? You are more likely to develop this condition if: Your body's disease-fighting system (immune system) is weakened. You are age 65 or older. You are male. You had surgery or you have been hospitalized. You have these devices inserted into your body: ?A small, thin tube (catheter). ?IV line. ?Breathing tube. ?Drainage tube. You are not getting enough nutrients from food (malnourished). You have a chronic disease, such as cancer, lung disease, kidney disease, or diabetes. What are the signs or symptoms? Symptoms of this condition may include: Fever. Chills or feeling very cold. Confusion or anxiety. Fatigue. Muscle aches. Shortness of breath or rapid breathing (hyperventilation). Nausea and vomiting. Urinating much less than usual. Fast heart rate. Changes in skin color. Your skin may look blotchy, pale, or blue. Cool, clammy, or sweaty skin. Skin rash. Other symptoms depend on the source of your infection. How is this diagnosed? This condition is diagnosed based on your symptoms, medical history, and physical exam. Other tests may also be done to find out the cause of the infection and how severe the sepsis is. Tests may include: Blood tests. Urine tests. Swabs from other areas of your body that may have an infection. These samples may be tested (cultured) to find out what type of bacteria is causing the infection. Chest X-ray to check for pneumonia. Other imaging tests, such as a CT scan, may also be done. Lumbar puncture. This removes a small amount of the fluid that surrounds your brain and spinal cord. The fluid is then examined for infection. How is this treated? This condition must be treated in a hospital. Based on the cause of your infection, you may be given an antibiotic, antiviral, or antifungal medicine. You may also receive: Fluids through an IV. Oxygen and breathing assistance. Medicines to increase your blood pressure. Kidney dialysis. This process cleans your blood if your kidneys have failed. Surgery to remove infected tissue. Blood transfusion if needed. Medicine to prevent blood clots. Nutrients to correct imbalances in basic body function (metabolism). You may: ?Receive important salts and minerals (electrolytes) through an IV. ?Have your blood sugar level adjusted. Follow these instructions at home: Medicines Take [id number] and prescription medicines only as told by your health care provider. If you were prescribed an antibiotic, antiviral, or antifungal medicine, take it as told by your health care provider. Do not stop taking the medicine even if you start to feel better. General instructions If you have a catheter or other indwelling device, ask to have it removed as soon as possible. Keep all follow-up visits. This is important. Contact a health care provider if: You do not feel like you are getting better or regaining strength. You are having trouble coping with your recovery. You frequently feel tired. You feel worse or do not seem to get better after surgery. You think you may have an infection after surgery. Get help right away if: You have any symptoms of sepsis. You have difficulty breathing. You have a rapid or skipping heartbeat. You become confused or disoriented. You have a high fever. Your skin becomes blotchy, pale, or blue. You have an infection that is getting worse or not getting better. These symptoms may represent a serious problem that is an emergency. Do not wait to see if the symptoms will go away. Get medical help right away. Call your local emergency services (911 in the [place] Do not drive yourself to the hospital. Summary Sepsis is a medical emergency that requires immediate treatment in a hospital. This condition is caused by a severe reaction to infections from bacteria, viruses, or fungus. Based on the cause of your infection, you may be given an antibiotic, antiviral, or antifungal medicine. Treatment may also include IV fluids, breathing assistance, and kidney dialysis. This information is not intended to replace advice given to you by your health care provider. Make sure you discuss any questions you have with your health care provider. Document Revised: 05/28/2023 Document Reviewed: 05/28/2023 [employer] Patient Education 2023 [employer]. Follow Up Care 10/12/2024 08:51:20 With:MIKEL IBARRA Address: [address] [facility] [address] [facility] [place] [address] Business (1) When:10/30/2024 13:30:00 [facility] 10-15-2024 Evaluation + Plan note Extrac susan from: Title:Discharge Note Author:LEE ANN PACK, Rere Gaona ate:10/15/24 Stable Discharge To, Anticipated II - Home independently Discharged to - Home independently Home Discharge Diet(s): Regular, Drink liquids and eat a light meal (10/15/24 12:06:00) Prescriptions cefdinir 300 mg Cap, 300 mg= 1 cap(s), Oral, q12hr Home acetaminophen 325 mg Tab, 650 mg= 2 tab(s), Oral, q6hr, PRN Albuterol (Eqv-Ventolin HFA) 90 mcg/inh inhalation aerosol, 2 inh, Inhalation, q4hr, Still taking, not as prescribed: takes as needed citalopram 20 mg Tab, 20 mg= 1 tab(s), Oral, Daily, Not taking oxcarbazepine 150 mg Tab, 150 mg= 1 tab(s), Oral, BID, Not taking phentermine 37.5 mg Tab, 37.5 mg= 1 tab(s), Oral, Daily, Not taking Pulmicort Flexhaler 90 mcg/inh inhalation powder, 1 inh, Inhalation, BID, Not taking traZODONE 50 mg Tab, 50 mg= 1 tab(s), Oral, Once a day (at bedtime), Not taking With When Contact Information MIKEL IBARRA Within 5 to [address] [place] [address] Business (1) Additional Instructions: Call for followup appointment Sepsis, Diagnosis, Adult Extracted from: Title:APSO Note Author:LEE ANN PACK, Rere Date: 33-year-old female with hist ory of asthma, depression, obesity presented with complaints of left flank pain associated with high-grade fevers of 3 to 4 days duration and was admitted with sepsis and bacteremia secondary to acute left pyelonephritis, leukocytosis, nausea and vomiting. 1. Sepsis (A41.9: Sepsis, unspecified organism) Sepsis present on admission secondary to acute gram-negative pyelonephritis. Resolved. Treated with IV Fluid and antibiotics Ordered: [facility] Hospital Care/Day Moderate 35 Minutes 63016 2. Bacteremia (R78.81: Bacteremia) E. coli bacteremia treating with IV ceftriaxone. Staphylococcus coagulase-negative bacteremia likely secondary to skin contaminant -treating with IV vancomycin pending repeat culture results. Ordered: vancomycin, PHARMACY TO DOSE, Injection, IV, As Directed, Routine, Start date 10/14/24 10:35:00 EDT [facility] Hospital Care/Day Moderate 35 Minutes [id number] 3. Acute pyelonephritis (N10: Acute pyelonephritis) Acute left E. coli pyelonephritis present on admission. Treating with IV ceftriaxone. Will transition to oral cefdinir at discharge. Ordered: [facility] Hospital Care/Day Moderate 35 Minutes 18737 4. Leukocytosis (D72.829: Elevated white blood cell count, unspecified) Secondary to above. WBC trended down. Ordered: [facility] Hospital Care/Day Moderate 35 Minutes [id number] 5. N&V (nausea and vomiting) (R11.2: Nausea with vomiting, unspecified) Secondary to above. Resolved. [facility] 35 Minutes 07847 6. Obese (E66.9: Obesity, unspecified) Recommend therapeutic lifestyle modification changes. Disposition: Home soon pending blood culture result. I discussed the diagnosis and plan of care with the patient at the bedside. Moderate level of MDM based on addressing above issues. This documentation was transcribed using voice recognition software. Several attempts were made to ensure accuracy. However inadvertent computerized demand inspector errors may be present. Rere Low. Hospitalist. Orders: Sodium Chloride 0.45% intravenous solution 1,000 mL, 1,000 mL, IV, 100 mL/hr, for 2 dose(s), Stop date 10/15/24 3:31:00 EDT, Routine, Start date 10/14/24 7:32:00 EDT, 10 hour(s), Total volume (mL): 1,000, 98.5 kg, 2.14, m2 vancomycin + Generic Diluent 300 mL, 1,500 mg = 300 mL, Soln-IV, IV Piggyback, q12hr, Start date 10/14/24 23:00:00 EDT, 200 mL/hr, Infuse over 90 minute(s) vancomycin + Generic Diluent 350 mL, 1,750 mg = 350 mL, Soln-IV, IV Piggyback, Once, Stop date 10/14/24 11:00:00 EDT, Start date 10/14/24 11:00:00 EDT, 175 mL/hr, Infuse over 2 hour(s) Blood Culture Charcoal Blood Culture Charcoal Vancomycin Level Peak Vancomycin Level Trough Extracted from: Title:APSO Note Author:Rere LOW MD Date: 33-year-old female with hist ory of asthma, depression, obesity presented with complaints of left flank pain associated with high-grade fevers of 3 to 4 days duration and was admitted with sepsis and bacteremia secondary to acute left pyelonephritis, leukocytosis, nausea and vomiting. 1. Sepsis (A41.9: Sepsis, unspecified organism) Sepsis present on admission secondary to acute gram-negative pyelonephritis. Resolving. Treating with IV Fluid and antibiotics Ordered: [facility] Care/Day Moderate 35 Minutes 03430 2. Bacteremia (R78.81: Bacteremia) E. coli bacteremia and gram-positive cocci bacteremia present on admission. Continue on IV ceftriaxone. I added IV vancomycin pending final blood culture result. Repeat blood culture today. Ordered: vancomycin, PHARMACY TO DOSE, Injection, IV, As Directed, Routine, Start date 10/14/24 10:35:00 EDT [facility] Hospital Care/Day Moderate 35 Minutes [id number] 3. Acute pyelonephritis (N10: Acute pyelonephritis) Acute left E. Coli pyelonephritis present on admission. Ordered: [facility] Hospital Care/Day Moderate 35 Minutes 60907 4. Leukocytosis (D72.829: Elevated white blood cell count, unspecified) Secondary to above. Treating with antibiotics and IV fluid. Ordered: [facility] Care/Day Moderate 35 Minutes [id number] 5. N&V (nausea and vomiting) (R11.2: Nausea with vomiting, unspecified) Secondary to above. Resolved. 6. Obese (E66.9: Obesity, unspecified) Recommend therapeutic lifestyle modification changes. Disposition: Pending resolution of fever, sepsis and final blood culture. I discussed the diagnosis and plan of care with the patient at the bedside. Moderate level of MDM based on addressing above issues. This documentation was transcribed using voice recognition software. Several attempts were made to ensure accuracy. However inadvertent computerized demand inspector errors may be present. Rere Low. Hospitalist. Orders: potassium chloride, 40 mEq = 2 tab(s), Tab-ER, Oral, Once, Stop date 10/13/24 13:00:00 EDT, Routine, Start date 10/13/24 13:00:00 EDT, 10/13/24 12:28:00 EDT Sodium Chloride 0.45% intravenous solution 1,000 mL, 1,000 mL, IV, 100 mL/hr, for 2 dose(s), Stop date 10/15/24 3:31:00 EDT, Routine, Start date 10/14/24 7:32:00 EDT, 10 hour(s), Total volume (mL): 1,000, 98.5 kg, 2.14, m2 Sodium Chloride 0.45% intravenous solution 1,000 mL, 1,000 mL, IV, 500 mL/hr, for 1 dose(s), Stop date 10/13/24 11:29:00 EDT, Routine, Start date 10/13/24 9:30:00 EDT, 2 hour(s), Total volume (mL): 1,000, 98.5 kg, 2.14, m2 Sodium Chloride 0.45% intravenous solution 1,000 mL, 1,000 mL, IV, 150 mL/hr, for 2 dose(s), Stop date 10/14/24 1:53:00 EDT, Routine, Start date 10/13/24 12:30:00 EDT, 6.7 hour(s), Total volume (mL): 1,000, 98.5 kg, 2.14, m2 vancomycin + Generic Diluent 300 mL, 1,500 mg = 300 mL, Soln-IV, IV Piggyback, q12hr, Start date 10/14/24 23:00:00 EDT, 200 mL/hr, Infuse over 90 minute(s) vancomycin + Generic Diluent 350 mL, 1,750 mg = 350 mL, Soln-IV, IV Piggyback, Once, Stop date 10/14/24 11:00:00 EDT, Start date 10/14/24 11:00:00 EDT, 175 mL/hr, Infuse over 2 hour(s) Blood Culture Charcoal Blood Culture Charcoal Shower Vancomycin Level Peak Vancomycin Level Trough Extracted from: Title:APSO Note Author:LEE ANN PACK, Ivoryanefo Date: 33-year-old female with hist ory of asthma, depression, obesity presented with complaints of left flank pain associated with high-grade fevers of 3 to 4 days duration and was admitted with sepsis and bacteremia secondary to acute left pyelonephritis, leukocytosis, nausea and vomiting. 1. Sepsis (A41.9: Sepsis, unspecified organism) Sepsis present on admission secondary to acute gram-negative pyelonephritis. Present on admission. I started patient on IV fluid. I ordered lactic acid level. Follow cultures. Ordered: [facility] Hospital Care/Day Moderate 35 Minutes 19361 2. Bacteremia (R78.81: Bacteremia) Gram-negative xavier bacteremia secondary to acute pyelonephritis. Treating with IV ceftriaxone. I increased ceftriaxone to 2 g daily. Repeat blood culture in a.m. Ordered: [facility] Hospital Care/Day Moderate 35 Minutes 53849 3. Acute pyelonephritis (N10: Acute pyelonephritis) Acute left pyelonephritis present on admission. Urine culture isolating gram-negative xavier organisms. Ordered: [facility] Hospital Care/Day Moderate 35 Minutes 13535 4. Leukocytosis (D72.829: Elevated white blood cell count, unspecified) Secondary to above. Treating with antibiotics and IV fluid. Ordered: [facility] Hospital Care/Day Moderate 35 Minutes [id number] 5. N&V (nausea and vomiting) (R11.2: Nausea with vomiting, unspecified) Secondary to above. Resolved. Disposition: Pending resolution of fever, sepsis and final blood culture/urine culture result. I discussed the diagnosis and plan of care with the patient at the bedside. Moderate level of MDM based on addressing above issues. This documentation was transcribed using voice recognition software. Several attempts were made to ensure accuracy. However inadvertent computerized demand inspector errors may be present. Rere Low. Hospitalist. Orders: ceftriaxone + Sodium Chloride 0.9% intravenous solution 50 mL, 2,000 mg = 1 EA, Injection, IV Piggyback, Daily, Start date 10/13/24 12:00:00 EDT, 100 mL/hr, Infuse over 30 minute(s) potassium chloride, 40 mEq = 2 tab(s), Tab-ER, Oral, Once, Stop date 10/13/24 13:00:00 EDT, Routine, Start date 10/13/24 13:00:00 EDT, 10/13/24 12:28:00 EDT Sodium Chloride 0.45% intravenous solution 1,000 mL, 1,000 mL, IV, 999 mL/hr, for 1 dose(s), Stop date 10/13/24 9:13:00 EDT, Routine, Start date 10/13/24 8:14:00 EDT, 1 hour(s), Total volume (mL): 1,000, 98.5 kg, 2.14, m2 Sodium Chloride 0.45% intravenous solution 1,000 mL, 1,000 mL, IV, 150 mL/hr, for 2 dose(s), Stop date 10/14/24 1:53:00 EDT, Routine, Start date 10/13/24 12:30:00 EDT, 6.7 hour(s), Total volume (mL): 1,000, 98.5 kg, 2.14, m2 Sodium Chloride 0.45% intravenous solution 1,000 mL, 1,000 mL, IV, 500 mL/hr, for 1 dose(s), Stop date 10/13/24 11:29:00 EDT, Routine, Start date 10/13/24 9:30:00 EDT, 2 hour(s), Total volume (mL): 1,000, 98.5 kg, 2.14, m2 Lactic Acid Extracted from: Title:Admission H & P Author:Mikhail Matute DO Date:10/12/24 33-year-old female admitted for acute pyelonephritis involving the left side. She has a leukocytosis and she has nausea and vomiting. She has a history of asthma and depression. 1. Acute pyelonephritis (N10: Acute pyelonephritis) Continue ceftriaxone starting the ED Repeat labs in a.m. Urine culture sent from ER as well as 2 blood cultures Pain control and antiemetics as needed 2. Leukocytosis (D72.829: Elevated white blood cell count, unspecified) Secondary to the pyelonephritis; will trend 3. N&V (nausea and vomiting) (R11.2: Nausea with vomiting, unspecified) Secondary to pyelonephritis Antiemetics as needed Orders: acetaminophen, 650 mg = 2 tab(s), Tab, Oral, q6hr PRN Pain, Routine, Start date 10/12/24 16:43:00 EDT, 10/12/24 16:43:00 EDT ceftriaxone + Sodium Chloride 0.9% intravenous solution 50 mL, 1,000 mg = 1 EA, Injection, IV Piggyback, q24hr, Routine, Start date 10/13/24 12:30:00 EDT, 100 mL/hr, Infuse over 30 minute(s) hydrALAZINE, 10 mg = 0.5 mL, Injection, IV Push, q6hr PRN Other (see comment), Routine, Start date 10/12/24 16:43:00 EDT, 10/12/24 16:43:00 EDT ketorolac, 15 mg = 1 mL, Injection, IV Push, q6hr PRN Pain 4-7 for 5 day(s), Stop date 10/17/24 17:22:00 EDT, Routine, Start date 10/12/24 17:23:00 EDT, 10/12/24 17:23:00 EDT ondansetron, 4 mg = 2 mL, Injection, IV Push, q6hr PRN Nausea, Routine, Start date 10/12/24 16:43:00 EDT, 10/12/24 16:43:00 EDT Activity As Tolerated Basic Metabolic Panel Below the Knee Intermittent Pneumatic Compression Device CBC w/ Auto Diff Notify Provider Vital Signs Notify Provider Vital Signs Pulse Oximetry Regular Diet Resuscitation Status - Full Vital Signs PLAN: 1. Patient is placed on the medical service 2. Continue ceftriaxone send in the ED 3. Blood culture x 2 and urine culture sent; will follow 4. Lab for a.m. 5. Pain control and antiemetics as needed 6. DVT prophylaxis with SCDs and early ambulation 7. Full CODE STATUS Anticipate greater than 2 midnight stays for inpatient status Extracted from: Title:ED Note Author:Stefan HILL, Bing Nassar te:10/12/24 Acute pyelonephritis (N10: A cute pyelonephritis) Leukocytosis (D72.829: Elevated white blood cell count, unspecified) N&V (nausea and vomiting) (R11.2: Nausea with vomiting, unspecified) Orders: ceftriaxone + Sodium Chloride 0.9% intravenous solution 50 mL, 1,000 mg = 1 EA, IV Piggyback, Once, Stop date 10/12/24 11:47:00 EDT, STAT, Start date 10/12/24 11:47:00 EDT, 100 mL/hr, Infuse over 30 minute(s), 10/12/24 11:47:00 EDT ketorolac, 30 mg = 1 mL, Injection, IV Push, Once, Stop date 10/12/24 11:47:00 EDT, STAT, Start date 10/12/24 11:47:00 EDT, 10/12/24 11:47:00 EDT ondansetron, 4 mg = 1 tab(s), Tab-Dis, Oral, Once, Stop date 10/12/24 9:10:00 EDT, STAT, Start date 10/12/24 9:10:00 EDT, 10/12/24 9:10:00 EDT promethazine 12.5 mg + Sodium Chloride 0.9% intravenous solution 50 mL, IV Piggyback, Once, Stop date 10/12/24 12:08:00 EDT, STAT, Start date 10/12/24 12:08:00 EDT, 151.5 mL/hr, Infuse over 20 minute(s), 10/12/24 12:08:00 EDT Sodium Chloride 0.9% intravenous solution, 1,000 mL, Soln-IV, IV, Once, Stop date 10/12/24 12:08:00 EDT, STAT, Start date 10/12/24 12:08:00 EDT, Infuse over 61, minute(s) Basic Metabolic Panel Blood Culture Charcoal Blood Culture Charcoal CBC w/ Auto Diff CT Abdomen/Pelvis w/o Contrast eGFR Extra Blue Tube Hepatic Function Panel Lactic Acid Lipase Level U Beta Hcg Qual UA with Cult Rflx Urine Culture [facility] 04-09-2025 NoteDischarge Summary Admission and Discharge Information Admit Date/Time:10/12/2024 13:32 Admitting Physician - Kenny Matute DO Admitting Diagnoses: Discharge Order Date Discharge Patient - Ordered -- 10/15/24 12:07:00 EDT, Home after IV ceftriaxone Discharge Diagnoses 1. Sepsis, 10/13/2024 2. Bacteremia, 10/13/2024 3. Acute pyelonephritis, 10/12/2024 4. Leukocytosis, 10/12/2024 5. N&V (nausea and vomiting), 10/12/2024 6. Obese, 10/14/2024 Procedure History Appendectomy, Frost Teeth Extraction. Hospital Course 33-year-old female with history of asthma, depression, obesity presented with complaints of left flank pain associated with high-grade fevers of about 4 days duration. She was subsequently admitted to [facility] with sepsis secondary to E. coli bacteremia secondary to E. coli acuteleft pyelonephritis, leukocytosis, nausea and vomiting. She was treated with IV fluid, IV ceftriaxone 2 g daily and vancomycin. 1 blood culture isolated Staphylococcus coagulase-negative organism???likely secondary to skin contamination. Vancomycin was discontinued. Patient's overall condition improved and sepsis resolved and she was anxious to be discharged home. Repeat blood cultures so far is not isolating any organisms. She was seen prior to discharge and remained in an improved and stable condition for discharge and was subsequently discharged home. Patient has been eating well and tolerating oral food well with no nausea or vomiting. She was subsequently discharged on. She will follow-up with her primary care physician accordingly. Discharge medications: Cefdinir 300 mg twice daily x 11 days. Physical Exam Vitals & Measurements T: 36.7 ???C(Axillary) TMIN: 36.6 ???C(Oral) TMAX: 36.9 ???C(Axillary) HR: 77(Monitored) RR: 16 BP:106/71 SpO2: 100% General: alert, no acute distress Skin: warm, dry Head: no trauma, normocephalic Neck: Trachea midline, no adenopathy, no tenderness Eye: normal conjunctiva, sclera clear ENMT: TM's clear, oral mucosa moist, no pharyngeal erythema or exudate Cardiovascular: regular rate and rhythm, normal peripheral perfusion Respiratory: Lungs CTA, respirations non labored Chest wall: no deformity. Gastrointestinal: soft, non distended, no tenderness, no guarding. Obese. Bowel sounds intact. Back: No tenderness, Normal ROM, Normal alignment. Extremities: no deformity, no trauma Neurological: oriented x 4, LOC appropriate for age, CN II-XII intact, motor strength equal & normal bilaterally, sensation equal & normal bilaterally, speech normal Psychiatric: cooperative, affect appropriate for age, normal judgement, normal psychiatric thoughts. Tests Performed CT Abdomen/Pelvis w/o Contrast Discharge Plan Patient Discharge Condition Stable Discharge Disposition Discharge To, Anticipated II - Home independently Discharged to - Home independently Home Discharge Diet Discharge Diet(s): Regular, Drink liquids and eat a light meal (10/15/24 12:06:00) Discharge Medication List Prescriptions cefdinir 300 mg Cap, 300 mg= 1 cap(s), Oral, q12hr Home acetaminophen 325 mg Tab, 650 mg= 2 tab(s), Oral, q6hr, PRN Albuterol (Eqv-Ventolin HFA) 90 mcg/inh inhalation aerosol, 2 inh, Inhalation, q4hr, Still taking, not as prescribed: takes as needed citalopram 20 mg Tab, 20 mg= 1 tab(s), Oral, Daily, Not taking oxcarbazepine 150 mg Tab, 150 mg= 1 tab(s), Oral, BID, Not taking phentermine 37.5 mg Tab, 37.5 mg= 1 tab(s), Oral, Daily, Not taking Pulmicort Flexhaler 90 mcg/inh inhalation powder, 1 inh, Inhalation, BID, Not taking traZODONE 50 mg Tab, 50 mg= 1 tab(s), Oral, Once a day (at bedtime), Not taking Follow-up With When Contact Information MIKEL IBARRA Within 5 to [address] [place] [address] Business (1) Additional Instructions: Call for followup appointment Patient Education Sepsis, [facility], [facility]Result Comment: Electronically Signed By: LEE ANN PACK, Rere\.br\Date and Time Signed: 10/15/24 12:11 [id number] NoteProgress Note - Pharmacy Vancomycin Pharmacy to Dose Consult Note Indication: Other: Goal Range: AUC/EDGAR: 400 - 600 RECOMMENDATIONS/ PLAN: Pharmacy consulted for vancomycin dosing for DILMA KAUR, a 33 Years old, Female who is beingtreated with vancomycin for bacteremia. 1. Vancomycin therapy has been discontinued. Vancomycin level(s) have been discontinued: Pharmacy vancomycin dosing service will sign off. Thank you for allowing us to participate in this patient's care. Please contact pharmacy if there are questions.[facility]04-09-2025 NoteProgress Note-Physician Assessment/Plan 33-year-old female with history of asthma, depression, obesity presented with complaints of left flank pain associated with high-grade fevers of 3 to 4 days duration and was admitted with sepsis and bacteremia secondary to acute left pyelonephritis, leukocytosis, nausea and vomiting. 1. Sepsis (A41.9: Sepsis, unspecified organism) Sepsis???present on admission???secondary to acute gram-negative pyelonephritis. Resolved. Treated with IV Fluid and antibiotics Ordered: [facility] Hospital Care/Day Moderate 35 Minutes [id number] 2. Bacteremia (R78.81: Bacteremia) E. coli bacteremia???treating with IV ceftriaxone. Staphylococcus coagulase-negative bacteremia???likely secondary to skin contaminant -treating with IV vancomycin pending repeat culture results. Ordered: vancomycin, PHARMACY TO DOSE, Injection, IV, As Directed, Routine, Start date 10/14/24 10:35:00 EDT [facility] Hospital Care/Day Moderate 35 Minutes [id number] 3. Acute pyelonephritis (N10: Acute pyelonephritis) Acute left E. coli pyelonephritis???present on admission. Treating with IV ceftriaxone. Will transition to oral cefdinir at discharge. Ordered: [facility] Care/Day Moderate 35 Minutes 96500 4. Leukocytosis (D72.829: Elevated white blood cell count, unspecified) Secondary to above. WBC trended down. Ordered: [facility] Hospital Care/Day Moderate 35 Minutes 07730 5. N&V (nausea and vomiting) (R11.2: Nausea with vomiting, unspecified) Secondary to above. Resolved. Ordered: [facility] Care/Day Moderate 35 Minutes 72409 6. Obese (E66.9: Obesity, unspecified) Recommend therapeutic lifestyle modification changes. Disposition: Home soon pending blood culture result. I discussed the diagnosis and plan of care with the patient at the bedside. Moderate level of MDM based on addressing above issues. This documentation was transcribed using voice recognition software. Several attempts were made to ensure accuracy. However inadvertent computerized demand inspector errors may be present. Rere Low. Hospitalist. Orders: Sodium Chloride 0.45% intravenous solution 1,000 mL, 1,000 mL, IV, 100 mL/hr, for 2 dose(s), Stop date 10/15/24 3:31:00 EDT, Routine, Start date 10/14/24 7:32:00 EDT, 10 hour(s), Total volume (mL): 1,000, 98.5 kg, 2.14, m2 vancomycin + Generic Diluent 300 mL, 1,500 mg = 300 mL, Soln-IV, IV Piggyback, q12hr, Start date 10/14/24 23:00:00 EDT, 200 mL/hr, Infuse over 90 minute(s) vancomycin + Generic Diluent 350 mL, 1,750 mg = 350 mL, Soln-IV, IV Piggyback, Once, Stop date 10/14/24 11:00:00 EDT, Start date 10/14/24 11:00:00 EDT, 175 mL/hr, Infuse over 2 hour(s) Blood Culture Charcoal Blood Culture Charcoal Vancomycin Level Peak Vancomycin Level Trough Subjective Seen and examined. She feels better today with no fever. Denies any nausea, vomiting. Denies any burning on urination. Objective Vitals & Measurements T: 36.7 ???C(Axillary) TMIN: 36.6 ???C(Oral) TMAX: 36.9 ???C(Oral) HR: 66(Monitored) RR: 16 BP: 113/79 SpO2: 100% Intake & Output This visit (24 hour periods starting at 07:00 EDT) 10/15/24 * 10/14/24 10/13/24 Total Summary Intake mL -- 1,536.28 4,707.93 Output mL -- -- -- Fluid Balance -- 1,536.28 4,707.93 Intake (5) Generic Diluent, vancomycin mL -- 655.77 -- Oral Intake mL -- -- 550 Sodium Chloride 0.45% intravenous solution 1,000 mL mL -- 879.51 4,107.93 Sodium Chloride 0.9%, ceftriaxone mL -- -- 50 ketorolac mL -- 1 -- Total -- 1,536.28 4,707.93 Output (0) Counts (0) * This column has not completed the indicated time period. Physical Exam General: alert, no acute distress comfortable in bed on room air. Skin: warm, dry Head: no trauma, normocephalic Neck: Trachea midline, no adenopathy, no tenderness Eye: normal conjunctiva, sclera clear ENMT: TM's clear, oral mucosa moist, no pharyngeal erythema or exudate Cardiovascular: regular rate and rhythm, normal peripheral perfusion Respiratory: Lungs CTA, respirations non labored Chest wall: no deformity. Gastrointestinal: soft, non distended, no tenderness, no guarding. Obese. Bowel sounds intact. Back: No tenderness, Normal ROM, Normal alignment. Mild left lower tenderness. Extremities: no deformity, no trauma Neurological: oriented x 4, LOC appropriate for age, CN II-XII intact, motor strength equal & normal bilaterally, sensation equal & normal bilaterally, speech normal Psychiatric: cooperative, affect appropriate for age, normal judgement, normal psychiatric thoughts. Lab Results No qualifying data available. Problem List/Past Medical History Ongoing None Historical No qualifying data Medications Inpatient acetaminophen 325 mg Tab, 650 mg= 2 tab(s), Oral, q6hr, PRN ceftriaxone + Sodium Chloride 0.9% intravenous solution 50 mL hydrALAZINE 20 mg/mL Inj, 10 mg= 0.5 mL, IV Push, q6hr, PRN ketorolac 15 m (more content not included)...[facility]Result Comment: Electronically Signed By: LEE ANN PACK, Rere\.br\Date and Time Signed: 10/15/24 10:07 [id number] NoteProgress Note-Physician Assessment/Plan 33-year-old female with history of asthma, depression, obesity presented with complaints of left flank pain associated with high-grade fevers of 3 to 4 days duration and was admitted with sepsis and bacteremia secondary to acute left pyelonephritis, leukocytosis, nausea and vomiting. 1. Sepsis (A41.9: Sepsis, unspecified organism) Sepsis???present on admission???secondary to acute gram-negative pyelonephritis. Resolving. Treating with IV Fluid and antibiotics Ordered: [facility] Hospital Care/Day Moderate 35 Minutes [id number] 2. Bacteremia (R78.81: Bacteremia) E. coli bacteremia and gram-positive cocci bacteremia???present on admission. Continue on IV ceftriaxone. I added IV vancomycin pending final blood culture result. Repeat blood culture today. Ordered: vancomycin, PHARMACY TO DOSE, Injection, IV, As Directed, Routine, Start date 10/14/24 10:35:00 EDT [facility] Hospital Care/Day Moderate 35 Minutes 06774 3. Acute pyelonephritis (N10: Acute pyelonephritis) Acute left E. Coli pyelonephritis???present on admission. Ordered: [facility] Hospital Care/Day Moderate 35 Minutes [id number] 4. Leukocytosis (D72.829: Elevated white blood cell count, unspecified) Secondary to above. Treating with antibiotics and IV fluid. Ordered: [facility] Hospital Care/Day Moderate 35 Minutes [id number] 5. N&V (nausea and vomiting) (R11.2: Nausea with vomiting, unspecified) Secondary to above. Resolved. 6. Obese (E66.9: Obesity, unspecified) Recommend therapeutic lifestyle modification changes. Disposition: Pending resolution of fever, sepsis and final blood culture. I discussed the diagnosis and plan of care with the patient at the bedside. Moderate level of MDM based on addressing above issues. This documentation was transcribed using voice recognition software. Several attempts were made to ensure accuracy. However inadvertent computerized demand inspector errors may be present. Rere Low. Hospitalist. Orders: potassium chloride, 40 mEq = 2 tab(s), Tab-ER, Oral, Once, Stop 10/13/24 13:00:00 EDT, Routine, Start 10/13/24 13:00:00 EDT, 10/13/24 12:28:00 EDT Sodium Chloride 0.45% intravenous solution 1,000 mL, 1,000 mL, IV, 100 mL/hr, for 2 dose(s), Stop 10/15/24 3:31:00 EDT, Routine, Start date 10/14/24 7:32:00 EDT, 10 hour(s), Total volume (mL): 1,000, 98.5 kg, 2.14, m2 Sodium Chloride 0.45% intravenous solution 1,000 mL, 1,000 mL, IV, 500 mL/hr, for 1 dose(s), Stop 10/13/24 11:29:00 EDT, Routine, Start date 10/13/24 9:30:00 EDT, 2 hour(s), Total volume (mL): 1,000, 98.5 kg, 2.14, m2 Sodium Chloride 0.45% intravenous solution 1,000 mL, 1,000 mL, IV, 150 mL/hr, for 2 dose(s), Stop date 10/14/24 1:53:00 EDT, Routine, Start 10/13/24 12:30:00 EDT, 6.7 hour(s), Total volume (mL):1,000, 98.5 kg, 2.14, m2 vancomycin + Generic Diluent 300 mL, 1,500 mg = 300 mL, Soln-IV, IV Piggyback, q12hr, Start date 10/14/24 23:00:00 EDT, 200 mL/hr, Infuse over 90 minute(s) vancomycin + Generic Diluent 350 mL, 1,750 mg = 350 mL, Soln-IV, IV Piggyback, Once, Stop date 10/14/24 11:00:00 EDT, Start date 10/14/24 11:00:00 EDT, 175 mL/hr, Infuse over 2 hour(s) Blood Culture Charcoal Blood Culture Charcoal Shower Vancomycin Level Peak Vancomycin Level Trough Subjective Seen and examined. She feels better with improving fever. Left flank pain has resolved. Objective Vitals & Measurements T: 36.9 ???C(Axillary) TMIN: 36.8 ???C(Axillary) TMAX: 38.3 ???C(Axillary) HR: 80(Monitored) RR: 16BP: 114/76 SpO2: 100% Intake & Output This visit (24 hour periods starting at 07:00 EDT) 10/14/24 * 10/13/24 10/12/24 Total Summary Intake mL -- 4,707.93 2,203.5 Output mL -- -- -- Fluid Balance -- 4,707.93 2,203.5 Intake (7) Oral Intake mL -- 550 1,100 Sodium Chloride 0.45% intravenous solution 1,000 mL mL -- 4,107.93 -- Sodium Chloride 0.9% mL -- -- 1,000 Sodium Chloride 0.9%, ceftriaxone mL -- 50 50 Sodium Chloride 0.9%, promethazine mL -- -- 50.5 ketorolac mL -- -- 1 ondansetron mL -- -- 2 Total -- 4,707.93 2,203.5 Output (0) Counts (0) * This column has not completed the indicated time period. Physical Exam General: alert, no acute distress, comfortable in bed on room air. Skin: warm, dry Head: no trauma, normocephalic Neck: Trachea midline, no adenopathy, no tenderness Eye: normal conjunctiva, sclera clear ENMT: TM's clear, oral mucosa moist, no pharyngeal erythema or exudate Cardiovascular: regular rate and rhythm, normal peripheral perfusion Respiratory: Lungs CTA, respirations non labored Chest wall: no deformity. Gastrointestinal: soft, non distended, no tenderness, no guarding. Obese, bowel sounds intact. Back: No tenderness, Normal ROM, Normal alignment. Extremities: no deformity, no trauma Neurological: oriented x 4, LOC appropriate for age, CN II-XII intact, motor strengt (more content not included)...[facility]:Result Comment: Electronically Signed By: LEE ANN PACK, Ivoryanefo\.br\Date and Time Signed: 10/14/24 11:31 [id number] NoteProgress Note - Pharmacy Vancomycin Pharmacy to Dose Consult Note Indication: Other: Goal Range: AUC/EDGAR: 400 - 600 RECOMMENDATIONS/PLAN: Pharmacy consulted for vancomycin dosing for DILMA KAUR, a 33 Years Female who is being treated with vancomycin for bacteremia. 1.Vancomycin therapy is still active, today is day 1 of treatment. Patient is receiving Vancomycin 1500 mg IV q12h after initial 1750 mg dose. 2. No Vancomycin level has been drawn for this dosing regimen 3. DOSING RECS: 4. The next paired levels are scheduled. Peak at 0130 on 10/16 and Trough at 1000 on 10/16. 5. A MRSA Nasal Swab is not appropriate at this time We will follow patient's renal function, vancomycin levels and doses with you during the course of therapy. Additional recommendations will appear in follow up notes. If you have any questions, please contact pharmacy at [phone]. Age: 33 Years Allergies: ALLERGIES Weight: Last Documented Weight and Type of Scale Used Last Documented Weight Weight Measured: 103.8 kg (10/13/24 06:00:00) Type of Scale Used Weight Measured Type of Scale: Bed Scale (digital) (10/12/24 17:40:00) Height: Last Documented Height/Length Last Documented Height/Length Height/Length Measured: 165 cm (10/12/24 17:40:00) CrCl: 120 mL/min Labs: No qualifying data available.[facility]04-08-2025 Note Microbiology PROCEDURE: Blood Culture Charcoal [R1] SOURCE: Blood BODY SITE: Arm R COLLECTED DATE/TIME: 10/12/2024 12:21 EDT RECEIVED DATE/TIME: 10/12/2024 12:33 EDT START DATE/TIME: 10/12/2024 12:33 EDT FREE TEXT SOURCE: right nicci Aviles PA-C, Bing Aviles PA-C, Bing Curtis FINAL REPORTS Final Report [] Verified Date/Time: 10/14/2024 09:33 EDT Escherichia coli In 2 of 2 blood culture bottles drawn. Isolated from aerobic and anaerobic bottles Preliminary gram stain result of gram negative rods Result called to Dr. Low by [facility] and results read back for confirmation on 10/13/2024 11:16:35 SUSCEPTIBILITY RESULTS LEGEND: S=Susceptible, N/R=Not Reported, Blank=Data not available, or drug not advisable or tested, I=Intermediate, ESBL=Extended spectrum beta-lactamase, R=Resistant, TFG=Thymidine-dependent strain, JUANCARLOS=Beta-lactamase positive, EDGAR=mcg/m;(mg/L), S*=Predicted susceptible interp, R*=Predicted resistant interp EC Antibiotic EDGAR Dilutn EDGAR Interp Ampicillin <=8 S Ampicillin/ <=8/4 S Sulbactam Aztreonam <=4 S Cefazolin <=2 S Cefepime <=2 S Ceftazidime <=1 S Ceftazidime/ <=8 S Avibactam Ceftriaxone <=1 S Cefuroxime <=4 S Ciprofloxacin <=0.25 S Ertapenem <=0.5 S Gentamicin 4 S Levofloxacin <=0.5 S Meropenem <=1 S Piperacillin/ <=8 S Tazobactam Tetracycline <=4 S Tobramycin <=2 S Trimethoprim/ <=2/38 S Sulfa Performing Locations R1: This test was performed at: [facility] [employer], [address] [place] [address], [address]- , [place], DvlpuqThe [facility] HospitalComment on above:Performed By: #### [id number] #### [facility] [address] [place], [place] [id number] NoteProgress Note-Physician Assessment/Plan 33-year-old female with history of asthma, depression, obesity presented with complaints of left flank pain associated with high-grade fevers of 3 to 4 days duration and was admitted with sepsis and bacteremia secondary to acute left pyelonephritis, leukocytosis, nausea and vomiting. 1. Sepsis (A41.9: Sepsis, unspecified organism) Sepsis???present on admission???secondary to acute gram-negative pyelonephritis. Present on admission. I started patient on IV fluid. I ordered lactic acid level. Follow cultures. Ordered: [facility] Hospital Care/Day Moderate 35 Minutes 10231 2. Bacteremia (R78.81: Bacteremia) Gram-negative xavier bacteremia???secondary to acute pyelonephritis. Treating with IV ceftriaxone. I increased ceftriaxone to 2 g daily. Repeat blood culture in a.m. Ordered: [facility] Hospital Care/Day Moderate 35 Minutes [id number] 3. Acute pyelonephritis (N10: Acute pyelonephritis) Acute left pyelonephritis???present on admission. Urine culture isolating gram-negative xavier organisms. Ordered: [facility] Hospital Care/Day Moderate 35 Minutes 82815 4. Leukocytosis (D72.829: Elevated white blood cell count, unspecified) Secondary to above. Treating with antibiotics and IV fluid. Ordered: [facility] Hospital Care/Day Moderate 35 Minutes 83656 5. N&V (nausea and vomiting) (R11.2: Nausea with vomiting, unspecified) Secondary to above. Resolved. Disposition: Pending resolution of fever, sepsis and final blood culture/urine culture result. I discussed the diagnosis and plan of care with the patient at the bedside. Moderate level of MDM based on addressing above issues. This documentation was transcribed using voice recognition software. Several attempts were made to ensure accuracy. However inadvertent computerized demand inspector errors may be present. Rere Low. Hospitalist. Orders: ceftriaxone + Sodium Chloride 0.9% intravenous solution 50 mL, 2,000 mg = 1 EA, Injection, IV Piggyback, Daily, Start date 10/13/24 12:00:00 EDT, 100 mL/hr, Infuse over 30 minute(s) potassium chloride, 40 mEq = 2 tab(s), Tab-ER, Oral, Once, Stop date 10/13/24 13:00:00 EDT, Routine, Start date 10/13/24 13:00:00 EDT, 10/13/24 12:28:00 EDT Sodium Chloride 0.45% intravenous solution 1,000 mL, 1,000 mL, IV, 999 mL/hr, for 1 dose(s), Stop date 10/13/24 9:13:00 EDT, Routine, Start date 10/13/24 8:14:00 EDT, 1 hour(s), Total volume (mL): 1,000, 98.5 kg, 2.14, m2 Sodium Chloride 0.45% intravenous solution 1,000 mL, 1,000 mL, IV, 150 mL/hr, for 2 dose(s), Stop date 10/14/24 1:53:00 EDT, Routine, Start date 10/13/24 12:30:00 EDT, 6.7 hour(s), Total volume (mL):1,000, 98.5 kg, 2.14, m2 Sodium Chloride 0.45% intravenous solution 1,000 mL, 1,000 mL, IV, 500 mL/hr, for 1 dose(s), Stop date 10/13/24 11:29:00 EDT, Routine, Start date 10/13/24 9:30:00 EDT, 2 hour(s), Total volume (mL): 1,000, 98.5 kg, 2.14, m2 Lactic Acid Subjective Seen and examined. Complaining of fever since last night. Still has intermittent left flank pain. Denies any burning on urination. Objective Vitals & Measurements T: 36.9 ???C(Axillary) TMIN: 36.9 ???C(Axillary) TMAX: 39.5 ???C(Oral) HR: 90(Monitored) RR: 16 BP:109/71 SpO2: 98% HT: 165 cm WT: 103.8 kg Intake & Output This visit (24 hour periods starting at 07:00 EDT) 10/13/24 * 10/12/24 10/11/24 Total Summary Intake mL -- 2,203.5 -- Output mL -- -- -- Fluid Balance -- 203.5 -- Intake (6) Oral Intake mL -- 1,100 -- Sodium Chloride 0.9% mL -- 1,000 -- Sodium Chloride 0.9%, ceftriaxone mL -- 50 -- Sodium Chloride 0.9%, promethazine mL -- 50.5 -- ketorolac mL -- 1 -- ondansetron mL -- 2 -- Total -- ,203.5 -- Output (0) Counts (0) * This column has not completed the indicated time period. Physical Exam General: alert, no acute distress, sitting in bed. Warm to touch. Skin: warm, dry Head: no trauma, normocephalic Neck: Trachea midline, no adenopathy, no tenderness Eye: normal conjunctiva, sclera clear ENMT: TM's clear, oral mucosa moist, no pharyngeal erythema or exudate Cardiovascular: regular rate and rhythm, normal peripheral perfusion Respiratory: Lungs CTA, respirations non labored Chest wall: no deformity. Gastrointestinal: soft, non distended, no tenderness, no guarding. Obese. Bowel sounds intact. Back: Mild left costophrenic angle tenderness, Normal ROM, Normal alignment. Extremities: no deformity, no trauma Neurological: oriented x 4, LOC appropriate for age, CN II-XII intact, motor strength equal & normal bilaterally, sensation equal & normal bilaterally, speech normal Psychiatric: cooperative, affect appropriate for age, normal judgement, normal psychiatric thoughts. Lab Results WBC: 12.1 E9/L High (10/13/24 06:09:00) RBC: 4.1 E12/L Low (10/13/24 06:09:00) HGB: 10.7 gm/dL Low (10/13/24 06:09:00) Hct: 32.3 % Low (10/13/24 06:09:00) MCV: 79.5 fL Low (more content not included)...[facility] Comment on above:Result Comment: Electronically Signed By: LEE ANN PACK, Rere\.br\Date and Time Signed: 10/13/24 12:34 [id number] NoteHistory and Physical Basic Information Admit Date/Time:10/12/2024 13:32 Chief Complaint nausea, vomiting, fever, back pain History of Present Illness This is a 33-year-old white female whose past medical history is significant for: 1. Asthma 2. Depression Patient was in her usual state of health until Sunday. Sunday she developed back pain on her leftside and Sunday started going up into her rib cage. the pain was still present and she had a fever 502 to 104 degrees. She reports chills with cold sweats. Sunday and Sunday the pain was there still getting worse and she had decreased appetite because of nausea and vomiting. No urinary complaint such as burning or frequency or urgency and no pain. Her last menstrual period was 2 weeks ago. In the ER her blood pressure is 115/70 with a pulse of 97 and a respiratory rate of 18. She is satti CMP is essentially unremarkable and urinalysis does show trace protein, trace ketones, trace blood, 250 leukocyte esterase and 31-75 WBCs. Urine beta-hCG is negative. Ng 100% on room air and she is afebrile. She has a 15.3 white count with 76.3 neutrophilic shift and her H&H is 11.[address] of the abdomen pelvis without contrast showed mild left perinephric inflammation most likely pyelonephritis or recently passed calculus. No mention of hydronephrosis. Blood cultures and urine culture were sent from the ER. She was given IV fluids along with promethazine, Zofran, ketorolac and then started on IV ceftriaxone. She is admitted to the medical service for left-sided pyelonephritis. PAST MEDICAL HISTORY see above PAST SURGICAL HISTORY 1. 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 Scoring Venegas Fall Risk Score: 20 (10/12/24) Physical Exam Vitals & Measurements T: 36.5 ???C(Oral) HR: 86(Monitored) RR: 17 BP: 106/63 SpO2: 100% HT: 167.6 cm WT: 98.5 kg General: alert, no acute distress Skin: warm, dry Head: no trauma, normocephalic Neck: Trachea midline, no adenopathy, no tenderness Eye: normal conjunctiva, sclera clear ENMT: TM's clear, oral mucosa moist, no pharyngeal erythema or exudate Cardiovascular: regular rate and rhythm, normal peripheral perfusion Respiratory: Lungs CTA, respirations non labored Chest wall: no deformity. Gastrointestinal: soft, non distended, no tenderness, no guarding. Back: Left CVA tenderness Extremities: no deformity, no trauma Neurological: oriented x 4, LOC appropriate for age, CN II-XII intact, motor strength equal & normal bilaterally, sensation equal & normal bilaterally, speech normal Psychiatric: cooperative, affect appropriate for age, normal judgement, normal psychiatric thoughts. Lab Results WBC: 15.3 E9/L High (10/12/24 09:18:00) RBC: 4.4 E12/L (10/12/24 09:18:00) HGB: 11.5 gm/dL Low (10/12/24 09:18:00) Hct: 35.1 % (10/12/24 09:18:00) MCV: 79.8 fL Low (10/12/24 09:18:00) MCH: 26.2 pg Low (10/12/24 09:18:00) MCHC: 32.8 gm/dL (10/12/24 09:18:00) RDW: 17.2 % High (10/12/24 09:18:00) Platelet: 270 E9/L (10/12/24 09:18:00) MPV: 8.2 fL (10/12/24 09:18:00) Neutro Auto: 76.3 % High (10/12/24 09:18:00) Lymph Auto: 11.5 % Low (10/12/24 09:18:00) [place] Auto: 11.7 % (10/12/24 09:18:00) Eos Auto: 0 % (10/12/24 09:18:00) Basophil Auto: 0.5 % (10/12/24 09:18:00) Neutro Absolute: 11.6 E9/L High (10/12/24 09:18:00) Lymph Absolute: 1.8 E9/L (10/12/24 09:18:00) [place] Absolute: 1.8 E9/L High (10/12/24 09:18:00) Eos Absolute: 0 E9/L (10/12/24 09:18:00) Basophil Absolute: 0.1 E9/L (10/12/24 09:18:00) RBC Morph: SEE MORPHOLOGY (10/12/24 09:18:00) Anisocytosis: PRESENT (10/12/24 09:18:00) Microcyte: PRESENT (10/12/24 09:18:00) Hypochromasia: PRESENT (10/12/24 09:18:00) Large Plt: PRESENT (10/12/24 09:18:00) Glucose Lvl: 99 mg/dL (10/12/24 09:18:00) BUN: 8 mg/dL (10/12/24 09:18:00) Creatinine: 0.8 mg/dL (10/12/24 09:18:00) eGFR: 100 mL/min/1.73 m2 (10/12/24 09:18:00) BUN/Creat Ratio: 10 (10/12/24 09:18:00) Sodium Lvl: 134 mmol/L Low (10/12/24 09:18:00) Potassium Lvl: 3.5 mmol/L (10/12/24 09:18:00) Chloride: 101 mmol/L (10/12/24 09:18:00) CO2: 25 mmol/L (10/12/24 09:18:00) AGAP: 12 mEq/L (10/12/24 09:18:00) Calcium Lvl: 8.9 mg/dL (10/12/24 09:18:00) Alk Phos: 86 Int._Unit/L (10/12/24 09:18:00) ALT: 14 Int._Unit/L (10/12/24 09:18:00) AST: 17 Int._Unit/L (0 (more content not included)...[facility] Comment on above:Result Comment: Electronically Signed By: Kenny Matute DO\Date and Time Signed: 10/12/24 17:26 [id number] History of Present illness Narrative* Mikel Ibarra MD - 08/04/2024 1:43 PM ESTAssociated Problem(s): Primary insomnia Not sleeping well and resume trazodone. * Mikel Ibarra MD - 08/04/2024 1:43 PM ESTAssociated Problem(s): Mild persistent asthma without complication (CMS/HCC) Increased SOB and start pulmicort. Use albuterol PRN. * Mikel Ibarra MD - 08/04/2024 1:42 PM ESTAssociated Problem(s): Major depressive disorder, recurrent episode, moderate (CMS/HCC) Mood worse and resume medication. Warned will take 2-3 weeks to notice improvement in mood. * Mikel Ibarra MD - 08/04/2024 1:42 PM ESTAssociated Problem(s): Generalized anxiety disorder (CMS/HCC) Mood worse and resume medication. Warned will take 2-3 weeks to notice improvement in mood. * Mikel Ibarra MD - 08/04/2024 1:42 PM ESTAssociated Problem(s): Class 2 obesity due to excess calories without serious comorbidity with bodymass index (BMI) of 36.0 to 36.9 in adult Patient overweight and difficult time losing weight. Discussed proper diet and regular aerobic exercise. Recommend Weight Watchers and need to limit calories and smaller portions. Need to increase activity and regular aerobic exercise several days a week for 30 minutes at a time. Interested in adipex and warned of potential cardiac side effects. Script written for first month and will need to recheck weight in 1 month. OARRS reviewed. Continue medications as prescribed. * Mikel Ibarra MD - 08/04/2024 1:00 PM EST Images from the original note were not included. Subjective Patient ID: Dilma Santa is a 33 y.o. female who presents for Follow-up (3 m). Follow up depression, anxiety, insomnia, asthma, and weight. Not on medication for several months. Mood worse. Recently moved into own place and new job. Down, sad, and no motivation. Not want to do things or be around others. Doesn't feel happy and not doing things for fun. Nervous and worry all the time. Stressed out and overwhelmed. Thought racing and hard to clear mind. Fang, irritable and snapping at others. Easily upset and overreact. Not sleeping well. Not able to fall asleep or stay asleep. Not rested in am and tired during day. Trazodone was helping. Asthma worse. Increased SOB and cough with exertion. Chest tight and hard to take deep breath. Using albuterol daily. Weight up 3 pounds and wants to try adipex again. Review of Systems Respiratory: Negative for cough, shortness of breath and wheezing. Cardiovascular: Negative for chest pain and palpitations. Gastrointestinal: Negative for abdominal pain, diarrhea, nausea and vomiting. Genitourinary: Negative for dysuria. Objective Physical Exam Constitutional: General: She is not in acute distress. Appearance: Normal appearance. HENT: Head: Normocephalic. Right Ear: Tympanic membrane normal. Left Ear: Tympanic membrane normal. Eyes: Extraocular Movements: Extraocular movements intact. Pupils: Pupils are equal, round, and reactive to light. Cardiovascular: Rate and Rhythm: Normal rate and regular rhythm. Heart sounds: No murmur heard. No friction rub. No gallop. Pulmonary: Effort: Pulmonary effort is normal. Breath sounds: Normal breath sounds. No wheezing, rhonchi or rales. Abdominal: General: Bowel sounds are normal. There is no distension. Palpations: Abdomen is soft. Tenderness: There is no abdominal tenderness. There is no guarding or rebound. Musculoskeletal: Cervical back: Neck supple. Right lower leg: No edema. Left lower leg: No edema. Neurological: Mental Status: She is alert. Assessment/Plan Problem List Items Addressed This Visit Mild persistent asthma without complication (CMS/HCC) Increased SOB and start pulmicort. Use albuterol PRN. Relevant Medications budesonide (Pulmicort Flexhaler) 90 MCG/ACT inhaler Primary insomnia Not sleeping well and resume trazodone. Relevant Medications traZODone (Desyrel) 50 MG tablet Generalized anxiety disorder (CMS/HCC) Mood worse and resume medication. Warned will take 2-3 weeks to notice improvement in mood. Major depressive disorder, recurrent episode, moderate (CMS/HCC) - Primary Mood worse and resume medication. Warned will take 2-3 weeks to notice improvement in mood. Relevant Medications citalopram (CeleXA) 20 MG tablet OXcarbazepine (Trileptal) 150 MG tablet Class 2 obesity due to excess calories without serious comorbidity with body mass index (BMI) of 36.0 to 36.9 in adult Patient overweight and difficult time losing weight. Discussed proper diet and regular aerobic exercise. Recommend Weight Watchers and need to limit calories and smaller portions. Need to increase activity and regular aerobic exercise several days a week for 30 minutes at a time. Interested in adipex and warned of potential cardiac side effects. Script written for first month and will need to recheck weight in 1 month. OARRS reviewed. Continue medications as prescribed. Relevant Medications phentermine (Adipex-P) 37.5 MG tablet documented in this encounterUniversity Health Lakewood Medical [id number] Hospital Discharge instructions* Discharge Instructions* Dylon Valadez PA-C - 05/10/2024 1:39 AM EDT You were evaluated in the Emergency Department today for shortness of breath. Your symptoms improved with Albuterol and steroids, and your evaluation did not show evidence of medical conditions requiring emergent intervention at this time. You have been given a prescription for steroids, please take them as directed. Please also take guaifenesin (Mucinex) for your congestion. Please follow up with your primary care physician within 3 days. Return to the Emergency Department if you experience worsening shortness of breath, chest pain, headache, light headedness, or any other concerning symptoms. Thank you for choosing us for your care. * Attachments The following attachments cannot be sent through Care Everywhere. * Asthma: General Info (Eritrean) * Nebulizers: General Info (Eritrean) [facility] Work Phone: [phone] History of Present illness Narrative* Mikel Ibarra MD - 04/30/2024 9:25 AM EDTAssociated Problem(s): Primary insomnia Sleeping okay with trazodone and continue. * Mikel Ibarra MD - 04/30/2024 9:24 AM EDTAssociated Problem(s): Generalized anxiety disorder (CMS/HCC) Mood unchanged and increase trileptal. Continue celexa. Warned will take 2-3 weeks to notice improvement in mood. * Mikel Ibarra MD - 04/30/2024 9:24 AM EDTAssociated Problem(s): Major depressive disorder, recurrent episode, moderate (CMS/HCC) Mood unchanged and increase trileptal. Continue celexa. Warned will take 2-3 weeks to notice improvement in mood. * Mikel Ibarra MD - 04/30/2024 9:24 AM EDTAssociated Problem(s): Class 2 obesity due to excess calories without serious comorbidity with bodymass index (BMI) of 35.0 to 35.9 in adult Discussed proper diet and regular aerobic exercise. Recommend Weight Watchers and need to limit calories and smaller portions. Need to increase activity and regular aerobic exercise several days a week for 30 minutes at a time. * Mikel Ibarra MD - 04/30/2024 8:30 AM EDT Images from the original note were not included. Subjective Patient ID: Dilma Santa is a 33 y.o. female who presents for Follow-up. Follow up depression, anxiety, insomnia, and weight. Mood worse. Going through a divorce and increased stress. Down, sad, and no motivation. Not want to do things or be around others. Doesn't feel happy and not doing things for fun. Nervous and worry all the time. Stressed out and overwhelmed. Thought racing and hard to clear mind. Fang, irritable and snapping at others. Easily upset and overreact. Taking medication daily and feels like not helping. Sleeping okay with trazodone. Most nights able to fall asleep but often not stay asleep. Not rested in am and tired during day. Weight unchanged. Taking adipex but doesn't seem to be helping. Tries to walk and stay active. Tries to watch diet and eat healthy. Increased fruits and vegetables. Smaller portions and limits snacking. Tries to limit total daily calories. Review of Systems Respiratory: Negative for cough, shortness of breath and wheezing. Cardiovascular: Negative for chest pain and palpitations. Gastrointestinal: Negative for abdominal pain, diarrhea, nausea and vomiting. Genitourinary: Negative for dysuria. Objective Physical Exam Constitutional: General: She is not in acute distress. Appearance: Normal appearance. HENT: Head: Normocephalic. Right Ear: Tympanic membrane normal. Left Ear: Tympanic membrane normal. Eyes: Extraocular Movements: Extraocular movements intact. Pupils: Pupils are equal, round, and reactive to light. Cardiovascular: Rate and Rhythm: Normal rate and regular rhythm. Heart sounds: No murmur heard. No friction rub. No gallop. Pulmonary: Effort: Pulmonary effort is normal. Breath sounds: Normal breath sounds. No wheezing, rhonchi or rales. Abdominal: General: Bowel sounds are normal. There is no distension. Palpations: Abdomen is soft. Tenderness: There is no abdominal tenderness. There is no guarding or rebound. Musculoskeletal: Cervical back: Neck supple. Right lower leg: No edema. Left lower leg: No edema. Neurological: Mental Status: She is alert. Assessment/Plan Problem List Items Addressed This Visit Primary insomnia Sleeping okay with trazodone and continue. Generalized anxiety disorder (CMS/HCC) Mood unchanged and increase trileptal. Continue celexa. Warned will take 2-3 weeks to notice improvement in mood. Major depressive disorder, recurrent episode, moderate (CMS/HCC) - Primary Mood unchanged and increase trileptal. Continue celexa. Warned will take 2-3 weeks to notice improvement in mood. Relevant Medications OXcarbazepine (Trileptal) 300 MG tablet Class 2 obesity due to excess calories without serious comorbidity with body mass index (BMI) of 35.0 to 35.9 in adult Discussed proper diet and regular aerobic exercise. Recommend Weight Watchers and need to limit calories and smaller portions. Need to increase activity and regular aerobic exercise several days a week for 30 minutes at a time. documented in this encounterUniversity Health Lakewood Medical [id number] Telephone encounter Note* Telephone Encounter - Mikel Ibarra MD - 03/25/2024 2:20 PM EDT Okay to write letter stating patient needs a second service animal. [facility] [id number] Telephone encounter Note* Telephone Encounter - Mikel Ibarra MD - 03/25/2024 2:20 PM EDT ----- Message from Norma Woo sent at 03/25/2024 1:55 PM EDT ----- Regarding: Service Animal Dilma has one service animal but he is getting old. She has acquired another puppy to replace theolder dog but for the time being will have 2 service animals. She would like a letter from you stating the need for the second service animal. She would like the letter e-mailed to her at [employer]. [facility] [id number] Miscellaneous Notes* Telephone Encounter - Mikel Ibarra MD - 03/25/2024 2:20 PM EDT Okay to write letter stating patient needs a second service animal. * Telephone Encounter - Mikel Ibarra MD - 03/25/2024 2:20 PM EDT ----- Message from Norma Woo sent at 03/25/2024 1:55 PM EDT ----- Regarding: Service Animal Dilma has one service animal but he is getting old. She has acquired another puppy to replace theolder dog but for the time being will have 2 service animals. She would like a letter from you stating the need for the second service animal. She would like the letter e-mailed to her at [email or web address]. documented in this encounterNOM[facility] HealthcareEvaluation note* Diagnosis Urticaria due to cold and heat- Primary Major depressive disorder, recurrent episode, moderate (CMS/HCC) Major depressive disorder, recurrent episode, moderate Generalized anxiety disorder (CMS/HCC) Generalized anxiety disorder Primary insomnia Persistent disorder of initiating or maintaining sleep Morbid obesity due to excess calories (CMS/HCC) Annual physical exam Routine general medical examination at a health care facility Body mass index [BMI] 40.0-44.9, adult (Z68.41) Major depressive disorder, recurrent episode, moderate (CMS/HCC)- Primary Major depressive disorder, recurrent episode, moderate Generalized anxiety disorder (CMS/HCC) Generalized anxiety disorder Primary insomnia Persistent disorder of initiating or maintaining sleep Urticaria due to cold and heat Morbid obesity due to excess calories (CMS/HCC) Major depressive disorder, recurrent episode, moderate (CMS/HCC)- Primary Major depressive disorder, recurrent episode, moderate Generalized anxiety disorder (CMS/HCC) Generalized anxiety disorder Primary insomnia Persistent disorder of initiating or maintaining sleep Obesity (BMI 30-39.9) Major depressive disorder, recurrent episode, moderate (CMS/HCC)- Primary Major depressive disorder, recurrent episode, moderate Generalized anxiety disorder (CMS/HCC) Generalized anxiety disorder Primary insomnia Persistent disorder of initiating or maintaining sleep Class 2 obesity due to excess calories without serious comorbidity with body mass index (BMI) of 35.0 to 35.9 in adult documented in this encounter [facility]Evaluation note* Diagnosis Exacerbation of asthma, unspecified asthma severity, unspecified whether persistent- Primary documented in this encounter [facility] Work Phone: Evaluation note* Diagnosis Obesity (BMI 30-39.9) documented in this encounter [facility] note* Diagnosis Urticaria due to cold and heat- Primary Major depressive disorder, recurrent episode, moderate (CMS/HCC) Major depressive disorder, recurrent episode, moderate Generalized anxiety disorder (CMS/HCC) Generalized anxiety disorder Primary insomnia Persistent disorder of initiating or maintaining sleep Morbid obesity due to excess calories (CMS/HCC) Annual physical exam Routine general medical examination at a health care facility Body mass index [BMI] 40.0-44.9, adult (Z68.41) Major depressive disorder, recurrent episode, moderate (CMS/HCC)- Primary Major depressive disorder, recurrent episode, moderate Generalized anxiety disorder (CMS/HCC) Generalized anxiety disorder Primary insomnia Persistent disorder of initiating or maintaining sleep Urticaria due to cold and heat Morbid obesity due to excess calories (CMS/HCC) Major depressive disorder, recurrent episode, moderate (CMS/HCC)- Primary Major depressive disorder, recurrent episode, moderate Generalized anxiety disorder (CMS/HCC) Generalized anxiety disorder Primary insomnia Persistent disorder of initiating or maintaining sleep Obesity (BMI 30-39.9) Major depressive disorder, recurrent episode, moderate (CMS/HCC)- Primary Major depressive disorder, recurrent episode, moderate Generalized anxiety disorder (CMS/HCC) Generalized anxiety disorder Primary insomnia Persistent disorder of initiating or maintaining sleep Class 2 obesity due to excess calories without serious comorbidity with body mass index (BMI) of 35.0 to 35.9 in adult Major depressive disorder, recurrent episode, moderate (CMS/HCC)- Primary Major depressive disorder, recurrent episode, moderate Generalized anxiety disorder (CMS/HCC) Generalized anxiety disorder Primary insomnia Persistent disorder of initiating or maintaining sleep Mild persistent asthma without complication (CMS/HCC) Class 2 obesity due to excess calories without serious comorbidity with body mass index (BMI) of 36.0 to 36.9 in adult documented in this encounter [facility] HealthcareEvaluation note* Diagnosis Urticaria due to cold and heat- Primary Major depressive disorder, recurrent episode, moderate (CMS/HCC) Major depressive disorder, recurrent episode, moderate Generalized anxiety disorder (CMS/HCC) Generalized anxiety disorder Primary insomnia Persistent disorder of initiating or maintaining sleep Morbid obesity due to excess calories (CMS/HCC) Annual physical exam Routine general medical examination at a health care facility Body mass index [BMI] 40.0-44.9, adult (Z68.41) Major depressive disorder, recurrent episode, moderate (CMS/HCC)- Primary Major depressive disorder, recurrent episode, moderate Generalized anxiety disorder (CMS/HCC) Generalized anxiety disorder Primary insomnia Persistent disorder of initiating or maintaining sleep Urticaria due to cold and heat Morbid obesity due to excess calories (CMS/HCC) Major depressive disorder, recurrent episode, moderate (CMS/HCC)- Primary Major depressive disorder, recurrent episode, moderate Generalized anxiety disorder (CMS/HCC) Generalized anxiety disorder Primary insomnia Persistent disorder of initiating or maintaining sleep Obesity (BMI 30-39.9) Major depressive disorder, recurrent episode, moderate (CMS/HCC)- Primary Major depressive disorder, recurrent episode, moderate Generalized anxiety disorder (CMS/HCC) Generalized anxiety disorder Primary insomnia Persistent disorder of initiating or maintaining sleep Class 2 obesity due to excess calories without serious comorbidity with body mass index (BMI) of 35.0 to 35.9 in adult Major depressive disorder, recurrent episode, moderate (CMS/HCC)- Primary Major depressive disorder, recurrent episode, moderate Generalized anxiety disorder (CMS/HCC) Generalized anxiety disorder Primary insomnia Persistent disorder of initiating or maintaining sleep Mild persistent asthma without complication (CMS/HCC) Class 2 obesity due to excess calories without serious comorbidity with body mass index (BMI) of 36.0 to 36.9 in adult Pyelonephritis- Primary Unspecified pyelonephritis Major depressive disorder, recurrent episode, moderate (CMS/HCC) Major depressive disorder, recurrent episode, moderate Generalized anxiety disorder (CMS/HCC) Generalized anxiety disorder Mild persistent asthma without complication (CMS/HCC) Mild asthma without complication, unspecified whether persistent (CMS/HCC) Urticaria due to cold and heat documented in this encounter [facility] HealthcareEvaluation note* Diagnosis Urticaria due to cold and heat- Primary Major depressive disorder, recurrent episode, moderate (HCC) Major depressive disorder, recurrent episode, moderate Generalized anxiety disorder Generalized anxiety disorder Primary insomnia Persistent disorder of initiating or maintaining sleep Morbid obesity due to excess calories (CMS-HCC) Annual physical exam Routine general medical examination at a health care facility Body mass index [BMI] 40.0-44.9, adult (Z68.41) Major depressive disorder, recurrent episode, moderate (HCC)- Primary Major depressive disorder, recurrent episode, moderate Generalized anxiety disorder Generalized anxiety disorder Primary insomnia Persistent disorder of initiating or maintaining sleep Urticaria due to cold and heat Morbid obesity due to excess calories (CMS-HCC) Major depressive disorder, recurrent episode, moderate (HCC)- Primary Major depressive disorder, recurrent episode, moderate Generalized anxiety disorder Generalized anxiety disorder Primary insomnia Persistent disorder of initiating or maintaining sleep Obesity (BMI 30-39.9) Major depressive disorder, recurrent episode, moderate (HCC)- Primary Major depressive disorder, recurrent episode, moderate Generalized anxiety disorder Generalized anxiety disorder Primary insomnia Persistent disorder of initiating or maintaining sleep Class 2 obesity due to excess calories without serious comorbidity with body mass index (BMI) of 35.0 to 35.9 in adult Major depressive disorder, recurrent episode, moderate (HCC)- Primary Major depressive disorder, recurrent episode, moderate Generalized anxiety disorder Generalized anxiety disorder Primary insomnia Persistent disorder of initiating or maintaining sleep Mild persistent asthma without complication (HCC) Class 2 obesity due to excess calories without serious comorbidity with body mass index (BMI) of 36.0 to 36.9 in adult Pyelonephritis- Primary Unspecified pyelonephritis Major depressive disorder, recurrent episode, moderate (HCC) Major depressive disorder, recurrent episode, moderate Generalized anxiety disorder Generalized anxiety disorder Mild persistent asthma without complication (HCC) Mild asthma without complication, unspecified whether persistent (HCC) Urticaria due to cold and heat Encounter for fertility planning Follow-up exam Unspecified follow-up examination documented in this encounter [facility] Narrative No data available for this section [facility] Progress note No data available for this section [facility] Summary Purpose Family History No Family History [...] History Records FoundNo Family History Records Found No data available for this section No Family History Records FoundNo Family History [...] Advanced Directives Records Found Additional Source Comments Care Teams (unrecognized sec tion and content) 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 Relationship Specialty Start Date End Date Jimmy Hay MD [address] [place] [address] PCP - General 01/04/22 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 Relationship Specialty Start Date End Date Jimmy Hay MD [address] [place] [address] PCP - General 01/04/22 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 Relationship Specialty Start Date End Date Mikel Ibarra MD [address] [place] [phone] PCP - General Family Medicine 09/26/23 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 Relationship Specialty Start Date End Date Mikel Ibarra MD [address] [place] [phone] PCP - General Family Medicine 09/26/23 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 Relationship Specialty Start Date End Date Jimmy Hay MD [address] [place] [address] PCP - General 01/04/22 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 Relationship Specialty Start Date End Date Mikel Ibarra MD [address] [place] [address] PCP - General Family Medicine 09/26/23 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 Relationship Specialty Start Date End Date Mikel Ibarra MD [address] [place] [address] PCP - General Family Medicine 09/26/23 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 Relationship Specialty Start Date End Date Mikel Ibarra MD [address] [place] [address] PCP - General Family Medicine 09/26/23 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 Relationship Specialty Start Date End Date Mikel Ibarra MD [address] [place] [address] PCP - General Family Medicine 09/26/23 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 Relationship Specialty Start Date End Date Mikel Ibarra MD [address] [place] [address] PCP - General Family Medicine 09/26/23 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 Relationship Specialty Start Date End Date Mikel Ibarra MD [address] [place] [address] PCP - General Family Medicine 09/26/23 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 Relationship Specialty Start Date End Date Mikel Ibarra MD [address] [place] [address] PCP - General Family Medicine 09/26/23 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 Relationship Specialty Start Date End Date Mikel Ibarra MD [address] [place] [phone] PCP - General Family Medicine 09/26/23 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 Relationship Specialty Start Date End Date Mikel Ibarra MD [address] [place] [phone] PCP - General Family Medicine 09/26/23 INFORMATION SOURCE (unrecogn ized section and content) DATE CREATED AUTHOR 11/17/2022 [facility] DATE CREATED AUTHOR AUTHOR'S ORGANIZ ATION 01/24/2023 [facility] DATE CREATED AUTHOR AUTHOR'S ORGANIZ ATION 10/13/2024 [facility] DATE CREATED AUTHOR AUTHOR'S ORGANIZ ATION 10/14/2024 [facility] DATE CREATED AUTHOR AUTHOR'S ORGANIZ ATION 10/15/2024 [facility] DATE CREATED AUTHOR AUTHOR'S ORGANIZ ATION 10/17/2024 [facility] DATE CREATED AUTHOR AUTHOR'S ORGANIZ ATION 10/18/2024 [facility] DATE CREATED AUTHOR AUTHOR'S ORGANIZ ATION 10/23/2024 [facility] DATE CREATED AUTHOR AUTHOR'S ORGANIZ ATION 02/04/2025 [facility] DATE CREATED AUTHOR AUTHOR'S ORGANIZ ATION 04/13/2025 [facility] Reason for Visit (unrecogniz ed section and content) Reason Comments Follow-up Reason Comments Shortness of Breath C/o shortness of douglas ath that started this morning. Tried her breathing treatments at home with no relief. Pt tachypneic and audible wheezing in triage. States it feels like an elephants sitting on my chest Reason Comments Med Refill Reason Comments Follow-up 3 m Reason Comments Follow-up [facility] f/up sepsis Reason Comments Infertility Follow-up Ordered Prescriptions (unrec ognized section and content) Prescription Sig Dispensed Refills Start Date End Da te predniSONE (DELTASONE) 20 MG tablet Take 1 tablet by mouth 2 times daily for 5 days 10 tablet 05/10/2024 05/15/2024 Scheduled Active and Recently Administ ered Medications (unrecognized section and content) Medication Order 05/08/2024 05/09/2024 05/10/2024 albuterol (PROVENTIL) (2.5 MG/3ML) 0.083% nebulizer solution 2.5 mg (COMPLETED) 2.5 mg, Nebulization, ONCE, 1 dose, On Sun05/09/24 at 2218, Initiate RT Bronchodilator Protocol: No 222 (Given - Provider: Brigette Bates RN) guaiFENesin (ROBITUSSIN) 100 MG/5ML liquid 400 mg (COMPLETED) 400 mg, Oral, ONCE, 1 dose, On Sun05/09/24 at 2226 2253 (Given - Provider: Brigette Bates RN) ipratropium 0.5 mg-albuterol 2.5 mg (DUONEB) nebulizer solution 1 Dose (COMPLETED) 1 Dose, Inhalation, ONCE, 1 dose, On Sun05/09/24 at 2128, Initiate RT Bronchodilator Protocol: No, STAT 2134 (Given - Provider: Brigette Bates RN) lactated ringers bolus 1,000 mL (COMPLETED) 1,000 mL, IntraVENous, at 495.9 mL/hr, Administer over 121 Minutes, ONCE, On Sun05/09/24 at 2249, For 1 dose, STAT 2257 (New Bag - Provider: Brigette Bates RN) 0039 (Stopped - Provider: Brigette Bates RN) magnesium sulfate 2000 mg in water 50 mL IVPB (COMPLETED) 2,000 mg, IntraVENous, at 50 mL/hr, Administer over 1 Hours, ONCE, On Sun05/09/24 at 2128, For 1 dose, Recommended infusion rate not to exceed 1,000 mg (milligrams) per hour. 2137 (New Bag - Provider: Brigette Bates RN)2237 (Stopped - Provider: Brigette Bates RN) methylPREDNISolone sodium (PF) (SOLU-MEDROL PF) injection 125 mg (COMPLETED) 125 mg, IntraVENous, ONCE, On Sun05/09/24 at 2128, For 1 dose 2135 (Given - Provider: Brigette Bates RN) ondansetron (ZOFRAN) injection 4 mg (COMPLETED) 4 mg, IntraVENous, ONCE, 1 dose, On Sun05/09/24 at 2340, STAT 2349 (Given - Provider: Brigette Bates RN) (unrecognized sect ion and content) No Status Records Found FOR RECORDS PERTAINING TO PATIENTS WHO ARE [...] BE BASED ON THE PRIMARY CLINICAL RECORDS. [facility] [employer] [facility]. provides no warranty or guarantee of the accuracy or completeness of information in this document.
[2025-04-16 16:12] LABS: Hematocrit 37.8 % (36.0-48.0); Hemoglobin 12.4 g/dL (12.0-16.0); Immature Granulocytes Abs Auto 0.03 10^3/uL (0.00-0.03); Immature Granulocytes Pct Auto 0.3 % (0.0-0.5); Lymphocytes Absolute Auto 3.4 10^3/uL (1.2-3.8); Mean Corpuscular HGB Conc 32.8 g/dL (29.9-35.2); Mean Corpuscular Hemoglobin 27.6 pg (26.7-34.0); Mean Corpuscular Volume 84.2 fL (81.0-99.0); Platelet Count 357 10^3/uL (150-450); Red Blood Count 4.49 10^6/uL (4.20-5.40); White Blood Count 10.6 10^3/uL (4.0-11.0)
[2025-04-16 16:39] LABS: Alanine Aminotransferase 23 U/L (14-59); Albumin Globulin Ratio 0.9; Albumin Level 4.0 g/dL (3.4-5.0); Alkaline Phosphatase 94 U/L (46-116); Anion Gap 12.0; Aspartate Amino Transferase 15 U/L (15-37); Blood Urea Nitrogen 7.0 mg/dL (7.0-18.0); Calcium 9.4 mg/dL (8.5-10.1); Carbon Dioxide 27.6 mmol/L (21.0-32.0); Chloride 104 mmol/L (98-107); Estimated GFR (African America >60 (>=60 mL/min/1.73m^2); Estimated GFR (Non-African Ame >60 (>=60 mL/min/1.73m^2); Globulin 4.5 g/dL; Glucose 91 mg/dL (74-106); Potassium 3.6 mmol/L (3.5-5.1); Sodium 140 mmol/L (136-145); Thyroid Stimulating Hormone 1.630 uIU/mL (0.358-3.740); Total Protein 8.5 g/dL (6.4-8.2)
== END 2025-04-16 15:55 | disposition home or self-care (01) ==
LOC: LAB 15:55
PROVIDERS: PCP Family Medicine; Visit Provider Family Medicine
DX: Z00.00 Encounter for general adult medical examination without abnormal findings (principal); R22.0 Localized swelling, mass and lump, head
CPT/HCPCS: 36415; 80053; 83036; 84443; 85025; 85652; 86140

== ENCOUNTER 2025-04-24 08:22 | Outpatient (OUT) | payer MEDICAID, SELFPAY ==
--- OUTSIDE RECORDS SUMMARY | 2025-04-24 08:26 | XMS_ITS | CCD ---
Author Organization [facility] Care Team Providers Care Gamma Operator Name Role Phone Jimmy Hay MD Primary [...] ., DR BEAR Admitting Unavailable REQUEST, DR KELLEY LISTED Primary Care Unavaila ble PADMINI ., DR BEAR Consulting Unavailable PADMINI ., DR BEAR Attending Unavailable PADMINI ., DR BEAR Admitting Unavailable REQUEST, DR KELLEY LISTED Primary Care Unavaila ble KATIEEBER, DR EDDI Fong Consulting Unavailable PADMINI ., DR BEAR Admitting Unavailable PADMINI ., DR BEAR Attending Unavailable REQUEST, DR NONE LISTED Primary Care Unavaila ble ASHLYN ., ROBERT Attending Unavailable ASHLYN ., ROBERT Admitting Unavailable ASHLYN ., ROBERT Consulting Unavailable REQUEST, NONE LISTED Primary Care Unavaila ble JORDAN ALVES Consulting Unavailable ALENA ELY Consulting Unavailable PADMINI ., DR BEAR Consulting Unavailable PADMINI ., DR BEAR Attending Unavailable REQUEST, NONE [...] Unavailable MISC, DR NINO Admitting Unavailable REQUEST, DR NONE LISTED Primary [...] Care Unavailable JIMMY HAY Primary Care Unavailable PERNI, JONO C Referring Unavailable JIMMY HAY Primary Care Unavailable SPENCER STEWARDRAM C Referring Unavailable Mikel Ibarra MD Primary Care Provider [phone] Jimmy Hay MD Primary Care Provider Ynes Trinidad Attending Unavailable Kenny Matute Attending Unavailable Kenny Matute Admitting Unavailable MIKEL IBARRA Primary Care Physician [phone] Rere LOW Attending Unavailable Kenny Matute Admitting Unavailable MIKEL IBARRA Attending Unavailable DAVID WASHINGTON Attending Unavailable NADEREAjit, MIKEL Attending Unavailable NADEREAjit, MIKEL Attending Unavailable NADEREAjit, MIKEL Attending Unavailable DAVID WASHINGTON Attending Unavailable Cesar Mallory MD Attending Provider [phone] Mikel Ibarra MD Primary Care Provider Mikel Ibarra MD Attending Provider Cesar Mallory Attending Unavailab Cesar Anderson Admitting Unavailab le Allergies Allergy Classification Reported Allergen(s) Allergy Type Date of Onset Reaction(s) Facility (7 sources) cefdinir Drug Allergy 10-30-2024 Itching [facility] (1 source) cefdinir Drug Allergy 04-16-[address] [facility] Repository Medications Current Medications Medication Drug Class(es) Dates Sig (Normalized) Sig (Original) [id number] 200 actuat albuterol 0.09 mg/actuat metered dose inhaler (20 sources) beta2-Adrenergic Agonist Start: 04-16-2025 take 1 puff(s) by inhalation every four hours as needed Albuterol Sulfate 90 mcg/actuation HFA aerosol inhaler Active 2 PUFF INHALATION Every 4 hours as needed April 16, 2025 12:00am Complies with drug therapy Start: 06-30-2024 End: 10-30-2024 take 2 puff(s) [...] actuat budesonide 0.09 mg/actuat dry powder inhaler (14 sources) Corticosteroid Start: 04-16-2025 Budesonide 90 mcg/actuation aerosol powdr breath activated Active 2 INH INHALATION Twice daily April 16, 2025 12:00am Complies with drug therapy Start: 08-04-2024 End: 10-30-2024 take 2 puff(s) [...] Discontinued fexofenadine hydrochloride 180 mg oral tablet (20 sources) Histamine-1 Receptor Antagonist Start: 04-16-2025 take 1 tablet by mouth once daily Fexofenadine (Allergy Relief (Fexofenadine)) 180 mg tablet Active 180 MG PO Daily April 16, 2025 12:00am Complies with drug therapy Start: 11-16-2023 End: 10-30-2024 take 1 tablet [...] 08/21/2022 Active montelukast 10 mg oral tablet (20 sources) Leukotriene Receptor Antagonist Start: 04-16-2025 take 1 tablet by mouth once daily Montelukast 10 mg tablet Active 10 MG PO Daily April 16, 2025 12:00am Complies with drug therapy Start: 11-16-2023 End: 10-30-2024 take 1 tablet [...] 5 days 10 tablet 05/10/2024 05/15/2024 Active QG-Rin-PR-Keystone-3 ( GUMMIES/DHA & FA) 0.4-32.5 MG CHEW (3 sources) LJ-Ppz-VD-Keystone-3 ( GUMMIES/DHA & FA) 0.4-32.5 MG CHEW Gummies/DHA & FA Active MV-Min- FA-Keystone-3 ( GUMMIES/DHA & FA) 0.4-32.5 MG CHEW [...] [PELVIC AND PERINEAL PAIN] Onset: 10-26-2022 Episodic Allergic reactions (20 sources) Urticaria due to cold and heat; Translations: [Urticaria due to cold and heat] Onset: 11-16-2023 11-16-2023 Episodic Anxiety disorders (20 sources) Generalized anxiety [...] Onset: 09-17-2022 Episodic Other aftercare (1 source) 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; Translations: [[facility] CURRENT USE OF ASPIRIN] Onset: 09-19-2022 Episodic Other aftercare (1 source) Other fdc (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; Translations: [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 THERAPY] Onset: 09-19-2022 Episodic Other [...] Chronic Other nutritional; endocrine; and metabolic disorders (19 sources) Obesity caused by energy imbalance; Translations: [...] Unclassified (1 source) None (qualifier value) 04-20-2012 Urinary tract infections (11 sources) Acute pyelonephritis; Translations: [Acute pyelonephritis] Onset: 10-12-2024 Episodic Past or Other Problems Problem Classification Problem [...] Test Name Value Interpretation Reference Range Facility [facility] PREG QUANT HCGon 025 HCG QUANTITATIVE <1 mIU/mL [facility] Comment on above: 5-50 0.2-1 WEEK 50-500 1-2 WEEKS 100-5,000 2-3 WEEKS 500-10,000 3-4 WEEKS 1,000-50,000 4-5 WEEKS 10,000-100,000 5-6 WEEKS 15,000-200,000 6-8 WEEKS 10,000-100,000 2-3 MONTHS [facility] PREG QUANT HCGon 025 HCG QUANTITATIVE <1 mIU/mL [facility] Comment on above: 5-50 0.2-1 WEEK 50-500 1-2 WEEKS 100-5,000 2-3 WEEKS 500-10,000 3-4 WEEKS 1,000-50,000 4-5 WEEKS 10,000-100,000 5-6 WEEKS 15,000-200,000 6-8 WEEKS 10,000-100,000 2-3 MONTHS [facility] Discharge Note-Nursingon Discharge Note-Nursing Discharge Note-Nursing VINCENTELENADILMA Estela :1990 Visit Date:10/12/2024 Inpatient Discharge Instructions Your [...] medications multivitamin, (Classic ) Procedure History Appendectomy, [place] Teeth Extraction. Discharge Vitals Temperature (Axillary) 36.7 [...] 10/30/2024 01:30 PM EDT Where: [address] [place] [address] Business (1) Medications What How Much When Why Instructions Next Dose New acetaminophen (acetaminophen 325 mg Tab) 2 Tablets By Mouth Every 6 hours as needed for Pain As needed, after 4:00 PM New cefdinir (cefdinir 300 mg Cap) 1 Capsules By Mouth Every 12 hours Bacteremia Acute pyelonephritis Duration: 11 Days Pickup at [id number] Begin tonight at 10:00 PM Unchanged albuterol [...] bedtime) Resume tonight at bedtime Pharmacy Information [facility][id number]: [address] [place], [place] [id number] [phone] What How Much When Comments Stop Taking [...] skin (cellulitis). (more content not included)... Normal [facility] Inpatient Clinical Summaryon 10-15-2024 Inpatient Clinical Summary Inpatient Clinical Summary [address] [address] Clinical Summary Person Information: Name: DILMA KAUR Age: 33 Years : 1990 Sex: Female PCP: MIKEL IBARRA MD Marital Status: Single Race: White Ethnicity: Non- or Language: Solomon Islander Visit Id: Visit Reason: Back pain; Malaise; Body aches; FEVER, BACK PAIN, VOMITING Speciality: Acuity: Enc Type: Inpatient Med Service: Medical Arrival: 10/12/2024 08:49:35 Discharge: Dispo Type: Admitted as IP to this Hosp Address: [address] [place] [id number] Provider Notes: Diagnosis: 1:Sepsis; 2:Bacteremia; 3:Acute pyelonephritis; [...] Physician: Follow up: With: Address: When: [address] [place] [id number] Business (1) 10/30/2024 1:30 PM Patient Education Information: Sepsis, Diagnosis, Adult Normal [facility] Inpatient Patient Summaryon 10-15-2024 Inpatient Patient Summary Inpatient Patient Summary [place] [id number] Patient Discharge Instructions PERSON INFORMATION Name: VINCENT DILMA B Date of : 1990 Current Date: 10/15/2024 [...] culture Follow up: With: Address: When: MIKEL FRED [address] [place] [id number] [facility] (1) 10/30/2024 1:30 PM In the event [...] OCCURRED DURING YOUR HOSPITAL STAY New [facility]ations [id number], [address] [place], [place] [id number], [phone] cefdinir (cefdinir 300 mg Cap) 1 Capsules [...] stop working. (more content not included)... Normal [facility] Interdisciplinary Note - Jean e Manageron 10-15-2024 Interdisciplinary Note - Pet Groomer Interdisciplinary Note - Pet Groomer DC is pending blood cultures at this time. Patient denies DC needs from CM. CM to follow. Plan is home when medically stable. Normal [facility] Comment on above: Result Comment: Elec tronically Signed By: Erika Velez I\.br\Date and Time Signed: 10/15/24 12:12 EDT C [...] Locations R1: This test was performed at: [facility], [address] [place] [address], [id number] , , [facility] Comment on above: Performed By: #### 2 [id number] #### [facility] [address] [place] [address] Interdisciplinary Note - Jean e Manageron 10-14-2024 Interdisciplinary Note - Pet Groomer Interdisciplinary Note - Pet Groomer CM followed up with patient. Patient continues to deny DC needs at this time. Plan is home when medically stable. CM to follow. [facility] Comment on above: Result Comment: Elec tronically Signed By: Erika Velez\Date and Time Signed: 10/14/24 13:36 EDT No Panel InformationOrdered By: [facility] on 10-14-2024 Blood Culture Charcoal No growth at 1 da y. Final to follow at 7 days. [facility] Blood Culture Charcoal No growth at 1 da y. Final to follow at 7 days. [facility] BMPon 10-13-2024 Anion gap [Moles/Vol] 9 mmol/L Normal 6-16 [facility] Comment on above: Performed By: #### 2 [id number] #### [facility] [address] [place] [address] Calcium [Mass/Vol] 8.5 mg/dL Low 8.9-11.1 [facility] Comment on above: Performed By: #### 2 [id number] #### [facility] [address] [place] [address] Chloride [Moles/Vol] 106 mmol/L Normal 101-111 [facility] Comment on above: Performed By: #### 2 [id number] #### [facility] [address] [place] [address] CO2 [Moles/Vol] 27 mmol/L Normal 21-31 [facility] Comment on above: Performed By: #### 2 [id number] #### [facility] [address] [place] [address] Creatinine [Mass/Vol] 0.8 mg/dL Normal 0.5-1.3 [facility] Comment on above: Performed By: #### 2 [id number] #### [facility] [address] [place] [address] Glucose [Mass/Vol] 103 mg/dL Normal 55-199 [facility] Comment on above: Performed By: #### 2 [id number] #### [facility] [address] [place] [address] Potassium [Moles/Vol] 3.7 mmol/L Normal 3.5-5.3 [facility] Comment on above: Performed By: #### 2 [id number] #### [facility] [address] [place] [address] Sodium [Moles/Vol] 138 mmol/L Normal 135-145 [facility] Comment on above: Performed By: #### 2 [id number] #### [facility] [address] [place] [address] Urea nitrogen [Mass/Vol] 8 mg/dL Normal 5-21 [facility] Comment on above: Performed By: #### 2 [id number] #### [facility] [address] [place] [address] Urea nitrogen/Creatinine [Mass ratio] 10 No Units Normal 10-20 [facility] Comment on above: Performed By: #### 2 [id number] #### [facility] [address] [place] [address] CBC w/ Auto Diffon 5 Basophils/100 WBC (Bld) 0.3 % Normal 0.0-2.0 [facility] Comment on above: Performed By: #### 2 [id number] #### [facility] [address] [place] [address] Basophils/Leukocytes Auto (Bld) [Pure # fraction] 0.0 E9/L Normal 0.0-0.2 [facility] Comment on above: Performed By: #### 2 [id number] #### [facility] [address] [place] [address] Eosinophils (Bld) [#/Vol] 0.0 E9/L Normal 0.0-0.5 [facility] Comment on above: Performed By: #### 2 [id number] #### [facility] [address] [place] [address] Eosinophils/100 WBC (Bld) 0.1 % Normal 0.0-8.0 [facility] Comment on above: Performed By: #### 2 [id number] #### [facility] [address] [place] [address] Erythrocyte distribution width (RBC) [Ratio] 17.2 % High 10.9-14.2 [facility] Comment on above: Performed By: #### 2 [id number] #### [facility] [address] [place] [address] Hematocrit (Bld) [Volume fraction] 32.3 % Low 34.0-46.0 [facility] Comment on above: Performed By: #### 2 [id number] #### [facility] [address] [place] [address] Hemoglobin (Bld) [Mass/Vol] 10.7 g/dL Low 12.0-16.0 [facility] Comment on above: Performed By: #### 2 [id number] #### [facility] [address] [place] [address] Lymphocytes (Bld) [#/Vol] 2.4 E9/L Normal 1.0-4.0 [facility] Comment on above: Performed By: #### 2 [id number] #### [facility] [address] [place] [address] Lymphocytes/100 WBC (Bld) 19.8 % Normal 14.0-50.0 [facility] Comment on above: Performed By: #### 2 [id number] #### [facility] [address] [place] [address] MCH (RBC) [Entitic mass] 26.3 pg Low 27.0-34.0 [facility] Comment on above: Performed By: #### 2 [id number] #### [facility] [address] [place] [address] MCHC (RBC) [Mass/Vol] 33.1 g/dL Normal 31.4-36.0 [facility] Comment on above: Performed By: #### 2 [id number] #### [facility] [address] [place] [address] MCV (RBC) [Entitic vol] 79.5 fL Low 80.0-100.0 [facility] Comment on above: Performed By: #### 2 [id number] #### [facility] [address] [place] [address] Monocytes (Bld) [#/Vol] 1.7 E9/L High 0.2-1.0 [facility] Comment on above: Performed By: #### 2 [id number] #### [facility] [address] [place] [address] Neutrophils (Bld) [#/Vol] 8.0 E9/L High 2.0-7.5 [facility] Comment on above: Performed By: #### 2 [id number] #### [facility] [address] [place] [address] Neutrophils/100 WBC (Bld) 66.0 % Normal 36.0-75.0 [facility] Comment on above: Performed By: #### 2 [id number] #### [facility] [address] [place] [address] Platelet mean volume (Bld) [Entitic vol] 8.5 fL Normal 6.4-10.8 [facility] Comment on above: Performed By: #### 2 [id number] #### [facility] [address] [place] [address] Platelets (Bld) [#/Vol] 260.0 E9/L Normal 150.0-500.0 [facility] Comment on above: Performed By: #### 2 [id number] #### [facility] [address] [place] [address] RBC (Bld) [#/Vol] 4.1 E12/L Low 4.3-5.9 [facility] Comment on above: Performed By: #### 2 [id number] #### [facility] [address] [place] [address] WBC corrected for nucl RBC Auto (Bld) [#/Vol] 12.1 E9/L High 4.0-11.0 [facility] Comment on above: Performed By: #### 2 [id number] #### [facility] [address] [place] [address] CHEMISTRYOrdered By: SYSTEM SYSTEM on 10-13-2024 Lactic [...] Jean e Manageron 10-13-2024 Interdisciplinary Note - Pet Groomer Interdisciplinary Note - Pet Groomer CM met with patient and mother at bedside. Patient is from home and lives with her young daughter. Patient is indepedent with all self care and drives. Patient denies DC needs and mom is supportive if needed at home. Normal [facility] Comment on above: Result Comment: Elec tronically Signed By: Erika Velez I\.george\Date and Time Signed: 10/13/24 11:58 EDT Lactic Acidon 10-13-2024 Lactic Acid Lvl 1.4 mmol/L Normal 0.5-2.2 [facility] Comment on above: Performed By: #### 2 [id number] #### [facility] [address] [place] [address] eGFRon 10-13-2024 eGFR 100 mL/min/1.73 m2 Normal >=59 [facility] Comment on above: Performed By: #### 1 [id number] #### [facility] [address] [place] [address] BMPon 10-12-2024 Anion gap [Moles/Vol] 12 mmol/L Normal 6-16 [facility] Comment on above: Performed By: #### 2 [id number] #### [facility] [address] [place] [address] Calcium [Mass/Vol] 8.9 mg/dL Normal 8.9-11.1 [facility] Comment on above: Performed By: #### 2 [id number] #### [facility] [address] [place] [address] Chloride [Moles/Vol] 101 mmol/L Normal 101-111 [facility] Comment on above: Performed By: #### 2 [id number] #### [facility] [address] [place] [address] CO2 [Moles/Vol] 25 mmol/L Normal 21-31 [facility] Comment on above: Performed By: #### 2 138630 #### [facility] [address] [place] [address] Creatinine [Mass/Vol] 0.8 mg/dL Normal 0.5-1.3 [facility] Comment on above: Performed By: #### 2 [id number] #### [facility] [address] [place] [address] Glucose [Mass/Vol] 99 mg/dL Normal 55-199 [facility] Comment on above: Performed By: #### 2 [id number] #### [facility] [address] [place] [address] Potassium [Moles/Vol] 3.5 mmol/L Normal 3.5-5.3 [facility] Comment on above: Performed By: #### 2 [id number] #### [facility] [address] [place] [address] Sodium [Moles/Vol] 134 mmol/L Low 135-145 [facility] Comment on above: Performed By: #### 2 [id number] #### [facility] [address] [place] [address] Urea nitrogen [Mass/Vol] 8 mg/dL Normal 5-21 [facility] Comment on above: Performed By: #### 2 [id number] #### [facility] [address] [place] [address] Urea nitrogen/Creatinine [Mass ratio] 10 No Units Normal 10-20 [facility] Comment on above: Performed By: #### 2 167142 #### [facility] [address] [place] [address] CBC w/ Auto Diffon 5 Anisocytosis Ql (Bld) PRESENT Invalid Interpretation Code [facility] Comment on above: Performed By: #### 2 [id number] #### [facility] [address] [place] [address] Basophils/100 WBC (Bld) 0.5 % Normal 0.0-2.0 [facility] Comment on above: Performed By: #### 2 [id number] #### [facility] [address] [place] [address] Basophils/Leukocytes Auto (Bld) [Pure # fraction] 0.1 E9/L Normal 0.0-0.2 [facility] Comment on above: Performed By: #### 2 [id number] #### [facility] [address] [place] [address] Eosinophils (Bld) [#/Vol] 0.0 E9/L Normal 0.0-0.5 [facility] Comment on above: Performed By: #### 2 [id number] #### [facility] [address] [place] [address] Eosinophils/100 WBC (Bld) 0.0 % Normal 0.0-8.0 [facility] Comment on above: Performed By: #### 2 [id number] #### [facility] [address] [place] [address] Erythrocyte distribution width (RBC) [Ratio] 17.2 % High 10.9-14.2 [facility] Comment on above: Performed By: #### 2 [id number] #### [facility] [address] [place] [address] Hematocrit (Bld) [Volume fraction] 35.1 % Normal 34.0-46.0 [facility] Comment on above: Performed By: #### 2 [id number] #### [facility] [address] [place] [address] Hemoglobin (Bld) [Mass/Vol] 11.5 g/dL Low 12.0-16.0 [facility] Comment on above: Performed By: #### 2 [id number] #### [facility] [address] [place] [address] Hypochromia Auto Ql (Bld) PRESENT Invalid Interpretation Code [facility] Comment on above: Performed By: #### 2 [id number] #### [facility] [address] [place] [address] Lymphocytes (Bld) [#/Vol] 1.8 E9/L Normal 1.0-4.0 [facility] Comment on above: Performed By: #### 2 [id number] #### [facility] [address] [place] [address] Lymphocytes/100 WBC (Bld) 11.5 % Low 14.0-50.0 [facility] Comment on above: Performed By: #### 2 [id number] #### [facility] [address] [place] [address] MCH (RBC) [Entitic mass] 26.2 pg Low 27.0-34.0 [facility] Comment on above: Performed By: #### 2 [id number] #### [facility] [address] [place] [address] MCHC (RBC) [Mass/Vol] 32.8 g/dL Normal 31.4-36.0 [facility] Comment on above: Performed By: #### 2 [id number] #### [facility] [address] [place] [address] MCV (RBC) [Entitic vol] 79.8 fL Low 80.0-100.0 [facility] Comment on above: Performed By: #### 2 419209 #### [facility] [address] [place] [address] Microcytes Ql (Bld) PRESENT Invalid Interpretation Code [facility] Comment on above: Performed By: #### 2 [id number] #### [facility] [address] [place] [address] Monocytes (Bld) [#/Vol] 1.8 E9/L High 0.2-1.0 [facility] Comment on above: Performed By: #### 2 [id number] #### [facility] [address] [place] [address] Neutrophils (Bld) [#/Vol] 11.6 E9/L High 2.0-7.5 [facility] Comment on above: Performed By: #### 2 751932 #### [facility] [address] [place] [address] Neutrophils/100 WBC (Bld) 76.3 % High 36.0-75.0 [facility] Comment on above: Performed By: #### 2 [id number] #### [facility] [address] [place] [address] Platelet mean volume (Bld) [Entitic vol] 8.2 fL Normal 6.4-10.8 [facility] Comment on above: Performed By: #### 2 [id number] #### [facility] [address] [place] [address] Platelets (Bld) [#/Vol] 270.0 E9/L Normal 150.0-500.0 [facility] Comment on above: Performed By: #### 2 [id number] #### [facility] Laboratory [address] [place] [address] Platelets Large LM Ql (Bld) PRESENT Invalid Interpretation Code [facility] Comment on above: Performed By: #### 2 [id number] #### [facility] [address] [place] [address] RBC (Bld) [#/Vol] 4.4 E12/L Normal 4.3-5.9 [facility] Comment on above: Performed By: #### 2 [id number] #### [facility] Laboratory [address] [place] [address] RBC size Nom (Bld) SEE MORPHOLOGY Invalid Interpretation Code [facility] Comment on above: Performed By: #### 2 [id number] #### [facility] Laboratory [address] [place] [address] WBC corrected for nucl RBC Auto (Bld) [#/Vol] 15.3 E9/L High 4.0-11.0 [facility] Comment on above: Result Comment: Sarah pheral smear review performed. Performed By: #### 2 [id number] #### [facility] Laboratory [address] [place] [address] CEFTRIAXONE:SUSC:PT:ISOLATE: ORDQN:MICOrdered By: Bing Delgadillo on 10-12-2024 cefTRIAXone EDGAR [Susc] Escherichia coli In 2 of 2 blood culture bottles drawn. Isolated from aerobic and anaerobic bottles Preliminary gram stain result of gram negative rods Result called to Dr. Low by [facility] and results read back for confirmation on 10/13/2024 11:16:35 [facility] CEFUROXIME:SUSC:PT:ISOLATE:O RDQN:MICOrdered By: Bing Delgadillo on 10-12-2024 Cefuroxime EDGAR [Susc] >100,000 cfu/ml Escherichia coli [facility] CHEMISTRYOrdered By: SYSTEM SYSTEM on 10-12-2024 [...] Galindo MD Transcribed by: JAMESON Technologist: SCAR Normal [facility] Cefuroxime EDGAR [Susc]Ordered By: Bing Delgadillo on 10-12-2024 Escherichia coli Escherichia coli [facility] ED Clinical Summaryon 2024 ED Clinical Summary ED Clinical Summary [address] [address] ED Clinical Summary Person Information Name: DILMA KAUR [facility] Age: 33 Years : 1990 Sex: Female Language: Solomon Islander PCP: MIKEL IBARRA MD Marital Status: Single Visit Id: Visit Reason: Back pain; Malaise; Body aches; FEVER, BACK PAIN, VOMITING Speciality: Acuity: 3 Enc Type: Inpatient Med Service: Medical Arrival: 10/12/2024 08:49:35 Discharge: LOS: 000 07:07 Checkin: 10/12/2024 08:49:35 Checkout: 10/12/2024 15:56:18 Dispo Type: Admitted as IP to this [facility] EVENTS: Event Name Event Status Request [...] 13:33:11 Patient Care Request 10/12/2024 13:33:11 ADDRESS: [place] [id number] PHYS DOC NOTES: MEDICAL INFORMATION: Prescriptions Given: Medications [...] pyelonephritis; Leukocytosis; N&V (nausea and vomiting) Normal [facility] ED Note-Physicianon 10-13-19 ED Note-Physician ED Note-Physician Basic Information Time Seen: Stefan HILL, Bing Curtis 10/12/2024 09:01 Chief Complaint pr presents with [...] prescription medications (more content not included)... Normal [facility] Comment on above: Result Comment: Elec tronically Signed By: Bing Aviles PA-C\.br\Date and Time Signed: 10/12/24 14:52 EDT\.br\Electronically Co-Signed By: Ynes Trinidad M.D.\.br\Date and Time Co-Signed: 10/12/24 16:53 EDT ED Patient Education Noteon 10-12-2024 ED Patient Education Note ED Patient Education Note Normal [facility] ED Patient Summaryon 025 ED Patient Summary ED Patient Summary [place] [id number] Patient Discharge Instructions Person Information Name: DILMA KAUR Age: 33 Years Arrival Date: 10/12/2024 08:49:35 Discharge Diagnosis: Acute pyelonephritis; Leukocytosis; N&V (nausea and vomiting) Primary Care Physician: MIKEL IBARRA MD Provider Information Primary Provider: Ynes Trinidad M.D. Advanced Piped Buttonhole Machine Operator:Bing Aviles PA-C The exam and treatment you received in the Emergency Department were for an urgent problem and are not intended as complete care. It is important that you follow up with a doctor, nurse practitioner, or physician???s investigative assistant for ongoing care. If your symptoms [...] opioids can be used to help relieve zzbtotzu-dj-bhicct pain and are often prescribed following a [...] be struggling with addiction, tell your health prompt care rn and ask for guidance or call [facility]???S National Helpline at 4-451-363-PCIL. v Source: [employer] Department of (more content not included)... Normal [facility] Extra Blueon 10-12-2024 Tube Collected Plasma Yes Invalid Interpretation Code [facility] Comment on above: Performed By: #### 1 [id number] #### [facility] Laboratory [address] [place] [address] HEMATOLOGYOrdered By: SYSTEM SYSTEM on 10-12-2024 Anisocytosis [...] 10-12-2024 Albumin [Mass/Vol] 4.0 g/dL Normal 3.3-5.0 [facility] Comment on above: Performed By: #### 2 [id number] #### [facility] Laboratory [address] [place] [address] Albumin/Globulin (S) [Mass conc ratio] 1.0 Low 1.1-2.2 [facility] Comment on above: Performed By: #### 2 [id number] #### [facility] [address] [place] [address] ALP [Catalytic activity/Vol] 86 Int._Unit/L Normal 21-98 [facility] Comment on above: Performed By: #### 2 [id number] #### [facility] Laboratory [address] [place] [address] ALT No additional P-5'-P [Catalytic activity/Vol] 14 Int._Unit/L Normal 6-46 [facility] Comment on above: Performed By: #### 2 [id number] #### [facility] Laboratory [address] [place] [address] AST [Catalytic activity/Vol] 17 Int._Unit/L Normal 5-43 [facility] Comment on above: Performed By: #### 2 [id number] #### [facility] Laboratory [address] [place] [address] Bilirubin [Mass/Vol] 0.8 mg/dL Normal 0.0-1.1 [facility] Comment on above: Performed By: #### 2 [id number] #### [facility] Laboratory [address] [place] [address] Bilirubin.direct [Mass/Vol] 0.3 mg/dL Normal 0.0-0.4 [facility] Comment on above: Performed By: #### 2 [id number] #### [facility] Laboratory [address] [place] [address] Bilirubin.indirect [Mass or moles/Vol] 0.5 mg/dL Normal 0.1-0.9 [facility] Comment on above: Performed By: #### 2 [id number] #### [facility] Laboratory [address] [place] [address] Globulin (S) [Mass/Vol] 3.9 g/dL Normal 1.4-4.0 [facility] Comment on above: Performed By: #### 2 [id number] #### [facility] Laboratory [address] [place] [address] Protein [Mass/Vol] 7.9 g/dL High 6.0-7.8 [facility] Comment on above: Performed By: #### 2 [id number] #### [facility] Laboratory [address] [place] [address] Lactic Acidon 10-12-2024 Lactic Acid Lvl 1.3 mmol/L Normal 0.5-2.2 [facility] Comment on above: Performed By: #### 2 [id number] #### [facility] [address] [place] [address] Lipase Levelon 10-12-2024 Lipase [Catalytic activity/Vol] 3 U/L Low 13-58 [facility] Comment on above: Performed By: #### 2 [id number] #### [facility] Laboratory [address] [place] [address] No Panel InformationOrdered By: Bing Delgadillo on 10-12-2024 Blood Culture Charcoal Staphylococcus species coagulase negative In 2 of 2 blood culture bottles drawn. Isolated from aerobic and anaerobic bottles Preliminary gram stain of gram positive cocci in clusters Result called to Dr. Low by and results read back for confirmation on 10/14/2024 08:06:24 [facility] SEROLOGYOrdered By: Tressa clarke on 10-12-2024 HCG.beta subunit (U) [Moles/Vol] Negative Normal [facility] Man Sero U BetaHcg Qualon 10-12-2024 HCG.beta subunit (U) [Moles/Vol] Negative Normal [facility] Comment on above: Performed By: #### 2 [id number] #### [facility] Laboratory [address] [place] [address] UA with Cult Rflxon 10-13-19 25 Bacteria Auto Ql (U) Trace Normal Trace Fish [facility] Comment on above: Performed By: #### 4 [id number] #### [facility] Laboratory [address] [place] [address] Bilirubin Ql (U) Negative Normal Negative [facility] Comment on above: Performed By: #### 4 [id number] #### [facility] [address] [place] [address] Clarity (U) Clear Normal Clear [facility] Comment on above: Performed By: #### 4 [id number] #### [facility] Laboratory [address] [place] [address] Color (U) Light-Yellow Normal Yellow [facility] Comment on above: Result Comment: Micr oscopic readings are only performed on those samples that meet specific criteria set forth by [facility] Laboratory. Performed By: #### 4 [id number] #### [facility] [address] [place] [address] Crystals.amorphous Computer assisted Ql (U) Present Abnormal [facility] Comment on above: Performed By: #### 4 [id number] #### [facility] Laboratory [address] [place] [address] Epithelial cells.squamous Auto (Urine sed) [#/Area] 0-2 Invalid Interpretation Code [facility] Comment on above: Performed By: #### 4 [id number] #### [facility] [address] [place] [address] Glucose Ql (U) Negative Normal Negative [facility] Comment on above: Performed By: #### 4 [id number] #### [facility] Laboratory [address] [place] [address] Hemoglobin Auto test strip (U) [Mass/Vol] Trace Abnormal Negative [facility] Comment on above: Performed By: #### 4 [id number] #### [facility] Laboratory [address] [place] [address] Ketones Auto test strip Ql (U) Trace Abnormal Negative [facility] Comment on above: Performed By: #### 4 [id number] #### [facility] [address] [place] [address] Leukocyte esterase Auto test strip Ql (U) 250 Elda/uL Abnormal Negative [facility] Comment on above: Performed By: #### 4 [id number] #### [facility] [address] [place] [address] Mucus Auto Ql (U) Negative Normal Negative [facility] Comment on above: Performed By: #### 4 [id number] #### [facility] [address] [place] [address] Nitrite Auto test strip Ql (U) Negative Normal Negative [facility] Comment on above: Performed By: #### 4 [id number] #### [facility] [address] [place] [address] pH (U) 6.0 [pH] Invalid Interpretation Code 5.0-9.0 [facility] Comment on above: Performed By: #### 4 [id number] #### [facility] [address] [place] [address] Protein Ql (U) Trace Abnormal Negative [facility] Comment on above: Performed By: #### 4 [id number] #### [facility] [address] [place] [address] RBC Ql (U) 0-3 Normal 0-3 [facility] Comment on above: Performed By: #### 4 [id number] #### [facility] [address] [place] [address] Specific gravity (U) [Rel density] 1.009 Invalid Interpretation Code 1.005-1.030 [facility] Comment on above: Performed By: #### 4 [id number] #### [facility] [address] [place] [address] Urobilinogen (U) [Mass/Vol] Negative Normal Negative [facility] Comment on above: Performed By: #### 4 [id number] #### [facility] [address] [place] [address] WBC Auto (Urine sed) [#/Area] 31-75 Abnormal 0-5 [facility] Comment on above: Performed By: #### 4 [id number] #### [facility] [address] [place] [address] Type of Urine collection method Clean Catch Normal [facility] Comment on above: Performed By: #### 4 [id number] #### [facility] [address] [place] [address] URINALYSISOrdered By: SYSTEM SYSTEM on 10-12-2024 Bacteria Auto Ql (U) Trace /HPF Normal Trace/HPF [facility] UA Auto SS Bilirubin Ql (U) Negative Normal Negativemg/ d L [facility] UA Auto SS Clarity (U) Clear (10/12/24 10:56 AM) Normal Clear [facility] UA Auto SS Color (U) Light-Yellow 1 (10/12/24 10:56 AM) Normal Yellow [facility] UA Auto SS Comment on above: Interpretive Data: M icroscopic readings are only performed on those samples that meet specific criteria set forth by [facility]. Crystals.amorphous Computer assisted Ql (U) Present [...] Elda/uL Elda/uL Invalid Interpretation Code NegativeLeu/ uL [facility] UA Auto SS Mucus Auto Ql (U) [...] Urobilinogen (U) [Mass/Vol] Negative Normal Negativemg/d L [facility] UA Auto SS WBC Auto (Urine sed) [#/Area] 31-75 graded/HPF Invalid Interpretation Code 0-5graded/HP F [facility] UA Auto SS URINALYSISOrdered By: Bing Aviles on 10-12-2024 UA Spec Desc Clean Catch (10/12/24 10:56 AM) Normal [facility] UA Auto SS cefTRIAXone EDGAR [[facility]]Ordere d By: Bing Delgadillo on 10-12-2024 Escherichia coli Escherichia coli [facility] eGFRon 10-12-2024 eGFR 100 mL/min/1.73 m2 Normal >=59 [facility] Comment on above: Performed By: #### 1 [id number] #### [facility] Laboratory [address] [place] [address] IGP,APTIMA HPV,AGE GDLNon AGE GDLN ACOG TESTING Note . [facility] Comment on above: TESTS RESULT FLAG UN ITS REF RANGE LAB Clinician Provided Cytology Information Source.............Cervix;Endocervix No. of containers..01 ThinPrep Vial Age Lisa HEAD Pily... 30 FLAG LEGEND: L-Low Normal,H-High Normal,LL-Alert Low,HH-Alert High <-Panic Low,>-Panic High,A-Abnormal,AA-Critical Abnormal Performed at: 01 =G [address] [phone] Angie Howell MD, HPV APTIMA Positive Abnormal Negative [facility] Comment on above: This nucleic acid am plification test detects fourteen high- risk HPV types (16,18,31,33,35,39,45,51,52,56,58,59,66,68) without differentiation. HPV GENOTYPE 16 Negative Negative [facility] HPV GENOTYPE 18,45 Negative Negative [facility] Comment on above: Performed at: =G - [address] [id number] [employer] Supervisor: Angie Howell MD, Phone: [phone] Performed at: - [facility] [id number] [employer] Supervisor: Angie Howell MD, Phone: [phone] IGP, APTIMA HPV, RFX 16/18,45 Note . [facility] Comment on above: TESTS RESULT FLAG UN ITS REF RANGE LAB DIAGNOSIS: 02 NEGATIVE FOR INTRAEPITHELIAL LESION OR MALIGNANCY. THIS SPECIMEN WAS RESCREENED PART OF OUR SENIOR OFFICE ASSISTANT PROGRAM. Specimen adequacy: 02 Satisfactory for evaluation. Endocervical and/or squamous metaplastic cells (endocervical component) are present. Performed by: 03 Keyanna Hoff, Chief Commercial Officer ([facility]) QC reviewed by: 02 Karey Rodgers, Chief Commercial Officer ([facility]) . 02 Note: Note 02 The Pap [...] High,A-Abnormal,AA-Critical Abnormal Performed at: 02 [address] [facility] [address] [phone] Angie Howell MD, 03 KWCYT [facility] [place] [facility] [id number] [place] [phone] Kushal Cotto MD, Interpretation and review of laboratory results Abnormal [facility] BRUSH-SPATULA CERVIX ENDOCERVIX CLINISYNC [facility] Lactate, Sepsison 05-10-2024 Interpretation and review of laboratory results Abnormal [facility] Lactate, Sepsis 4.2 mmol/L Critically high 0.5 - 2.0 mmol/L [facility] Comment on above: Critical value(s) ca lled and RB/V to _Bella Weight CARGO SUPERVISOR 05/10/2024 01:11:25 EDT [id number] [facility] CBC with Auto Differentialon 05-09-2024 Basophils (Bld) [#/Vol] 0.0 10*3/uL [facility] Basophils/100 WBC (Bld) 0.2 % 0.0 - 2.0 % [facility] Eosinophils (Bld) [#/Vol] 0.4 10*3/uL [facility] Eosinophils/100 WBC (Bld) 2.5 % 0.0 - 7.0 % [facility] Erythrocyte distribution width (RBC) [Ratio] 15.6 % 10.0 - 17.0 % [facility] Hematocrit (Bld) [Volume fraction] 35.6 % 34.0 - 47.0 % [facility] Hemoglobin (Bld) [Mass/Vol] 11.0 g/dL Low 11.5 - 15.7 g/dL [facility] Immature Grans (Abs) 0.02 [facility] Immature granulocytes/100 WBC (Bld) 0.1 % 0.0 - 0.6 % [facility] Interpretation and review of laboratory results Abnormal [facility] Lymphocytes Auto (Unsp spec) [#/Vol] 1.4 10*3/uL [facility] Lymphocytes/100 WBC (Bld) 8.3 % Low 15.0 - 45.0 % [facility] MCH (RBC) [Entitic mass] 26.1 pg Low 27.0 - 34.5 pg [facility] MCHC (RBC) [Mass/Vol] 30.9 g/dL 30.0 - 36.0 g/dL [facility] MCV (RBC) [Entitic vol] 84.6 fL 81.0 - 99.0 fL [facility] Monocytes (Bld) [#/Vol] 0.9 10*3/uL [facility] Monocytes/100 WBC (Bld) 5.3 % 4.0 - 12.0 % [facility] Neutrophils (Bld) [#/Vol] 13.8 10*3/uL High [facility] Neutrophils/100 WBC (Bld) 83.6 % High 42.0 - 74.0 % [facility] Platelet mean volume (Bld) [Entitic vol] 10.0 fL 7.0 - 12.2 fL [facility] Platelets (Bld) [#/Vol] 319 10*3/uL [facility] RBC (Bld) [#/Vol] 4.21 10*6/uL [facility] WBC (Bld) [#/Vol] 16.5 10*3/uL [facility] COVID-19 & Influenza Combo ( [facility])on 05-09-2024 FLUAV RNA OLGA+probe Ql (Resp) Not detected Not Detected [facility] FLUBV RNA OLGA+probe Ql (Resp) Not detected Not Detected [facility] SARS-CoV-2 (COVID-19) RNA OLGA+probe Ql (Resp) Not detected Not Detected [facility] Comment on above: The bhavana SARS-CoV-2 & [...] for COVID-19?->No Admitted to ICU for COVID-19?->No [facility] Comprehensive Metabolic Pane ktoa 05-09-2024 Albumin [Mass/Vol] 4.1 g/dL 3.5 - 5.2 g/dL [facility] Albumin/Globulin [Mass ratio] 1.00 {ratio} 1.00 - 2.70 [facility] ALP [Catalytic activity/Vol] 99 U/L [facility] ALT [Catalytic activity/Vol] 11 U/L [facility] Anion gap [Moles/Vol] 13 mmol/L 2 - 17 mmol/L [facility] AST [Catalytic activity/Vol] 13 U/L [facility] Bilirubin [Mass/Vol] 0.30 mg/dL 0.00 - 1.20 mg/dL [facility] Calcium [Mass/Vol] 9.1 mg/dL 8.5 - 10. 7 mg/dL [facility] Chloride [Moles/Vol] 105 mmol/L 98 - 10 7 mmol/L [facility] Creatinine [Mass/Vol] 0.7 mg/dL 0.5 - 1.0 mg/dL [facility] Est, Glom Filt Rate 119 - PINF [facility] Comment on above: VERIFIED by Discern Expert. [...] [Mass/Vol] 3.0 g/dL 1.9 - 4.4 g/dL [facility] Glucose [Mass/Vol] 121 mg/dL High 70 - 99 mg/dL [facility] HCO3 (P) [Moles/Vol] 21 mmol/L Low 22 - 29 mmol/L [facility] Interpretation and review of laboratory results Abnormal [facility] Osmolality Calc [Osmolality] 276 [facility] Potassium [Moles/Vol] 3.7 mmol/L 3.5 - 5.3 mmol/L [facility] Protein [Mass/Vol] 7.1 g/dL 5.7 - 8.3 g/dL [facility] Sodium [Moles/Vol] 139 mmol/L 135 - 145 mmol/L [facility] Urea nitrogen [Mass/Vol] 6 mg/dL 6 - 20 mg/dL [facility] Lactate, Sepsison 05-09-2024 Interpretation and review of laboratory results Abnormal [facility] Lactate, Sepsis 3.7 mmol/L Critically high 0.5 - 2.0 mmol/L [facility] Comment on above: Critical Result(s) C moses and R/V to: Ezequiel Devi RN ED 05/09/2024 22:32:59 EDT by [id number] [facility] Magnesiumon 05-09-2024 Magnesium [Mass/Vol] 2.1 mg/dL 1.6 - 2 .6 mg/dL [facility] No Panel Informationon 05-09 [facility] POC Urine Qualon 1 07-09-2023 Preg Test, Ur Negative Negative [facility] Comment on above: BH - ED [facility] POC Urine QualOrde red By: Brigette Bates on 05-09-2024 Beta HCG ( test) Ql (U) Negative Negative [facility] Lot Number [id number] [facility] Negative QC Pass/Fail Pass [facility] Positive QC Pass/Fail Pass [facility] Portable XR Chest AP single viewon 05-09-2024 No acute process identified. [facility] NARINDER CHEST: AP (or PA), 05/09/2024 9:29 PM INDICATION: Shortness of Breath COMPARISON: None FINDINGS: Cardiac silhouette is not enlarged. No pulmonary vascular congestion appreciated. No pulmonary edema or pneumonia. No pleural fluid. [facility] Avinash West MD - 05/09/2024 CHEST: AP (or PA), 05/09/2024 9:29 PM INDICATION: Shortness of Breath COMPARISON: None FINDINGS: Cardiac silhouette is not enlarged. No pulmonary vascular congestion appreciated. No pulmonary edema or pneumonia. No pleural fluid. IMPRESSION: No acute process identified. [facility] Work Phone: Radiology Study observation (narrative) [facility] Work Phone: Portable XR Chest AP single viewOrdered By: Avinash Mcclal on 05-09-2024 [facility] Work Phone: Procalcitoninon 05-09-2024 Procalcitonin 0.14 ng/mL NINF - 0.24 ng/mL [facility] Comment on above: PROCALCITONIN INTERP RETATION (based on clinical content from www.GuiaBolso.PlumWillow/asp): Normal: <0.25 ng/mL (infants >72 hours - [...] algorithms available on the Antimicrobial Stewardship Website (www.GuiaBolso.PlumWillow/asp). [facility] Troponinon 05-09-2024 Troponin, High Sensitivity ng/L 0 - 14 ng/L [facility] Comment on above: The immunoassay is i ntended to aid in the diagnosis of myocardial infarction. [facility] Urinalysis W/ Rflx Microscop icon 05-09-2024 Appearance (U) Clear [facility] Bilirubin (U) [Mass/Vol] Negative Negative [facility] Blood, Urine Negative Negative [facility] Color (U) Yellow [facility] Glucose Auto test strip (U) [Mass/Vol] Negative Negative [facility] Interpretation and review of laboratory results Abnormal [facility] Ketones (U) [Mass/Vol] Negative Negative [facility] Leukocyte esterase Test strip Ql (U) Negative Negative [facility] Nitrite Auto test strip Ql (U) Negative Negative [facility] pH (U) 6.0 [pH] 4.5 - 8.0 [facility] Protein Ql (U) Trace Negative [facility] Specific gravity (U) [Rel density] Abnormal 1.003 - 1.035 [facility] Urobilinogen Qn (U) 0.2 {Bee'U}/dL 1 - PINF EU/dL [facility] GLYCOHEMOGLOBIN A1Con 2022 ADA RECOMMENDATION SEE BELOW Normal [facility] Comment on above: Result Comment: ADA RECOMMENDED LIMIT 4.0 - 6.0 ADA THERAPEUTIC TARGET < 7.0 ACTION SUGGESTED > 7.0 Performed By: #### A 1C #### [facility] [address] [place] [address] Dr. Kavon Cardenas Glucose [Mass/Vol] 103 mg/dL Normal [facility] Comment on above: Performed By: #### A 1C #### [facility] [address] [place] [address] Dr. Kavon Cardenas HbA1c (Bld) [Mass fraction] 5.2 % Normal 4.5-6.2 [facility] Comment on above: Performed By: #### A 1C #### [facility] [address] [place] [address] Dr. Kavon Cardenas GTT 3 HR PREGon 11-01-2022 Glucose [Mass/Vol] 94 mg/dL Normal 74-106 [facility] Comment on above: Performed By: #### C ARDIGM #### [facility] [address] [place] [address] Dr. Kavon Cardenas CBC AUTO DIFFon 10-25-2022 BASO # 0.1 103/ul Normal 0.0-0.1 [facility] Comment on above: Performed By: #### C BC #### [facility] [address] [place] [address] Dr. Kavon Cardenas Basophils/100 WBC (Bld) 0.3 % Normal 0.2-2.0 [facility] Comment on above: Performed By: #### C BC #### [facility] [address] [place] [address] Dr. Kavon Cardenas EO # 0.2 103/ul Normal 0.0-0.7 [facility] Comment on above: Performed By: #### C BC #### [facility] [address] [place] [address] Dr. Kavon Cardenas Eosinophils/100 WBC (Bld) 1.3 % Normal 0.9-7.0 [facility] Comment on above: Performed By: #### C BC #### [facility] [address] [place] [address] Dr. Kavon Cardenas Erythrocyte distribution width (RBC) [Ratio] 14.5 % Normal 11.0-15.0 [facility] Comment on above: Performed By: #### C BC #### [facility] [address] [place] [address] Dr. Kavon Cardenas Hematocrit (Bld) [Volume fraction] 35.4 % Critically low 36.0-48.0 [facility] Comment on above: Performed By: #### C BC #### [facility] [address] [place] [address] Dr. Kavon Cardenas Hemoglobin (Bld) [Mass/Vol] 11.4 g/dL Critically low 12.0-16.0 [facility] Comment on above: Performed By: #### C BC #### [facility] [address] [place] [address] Dr. Kavon Cardenas IG # 0.19 10e3/ul Critically high 0.00-0.03 [facility] Comment on above: Performed By: #### C BC #### [facility] [address] [place] [address] Dr. Kavon Cardenas IG % 1.1 % Critically high 0.0-0.5 [facility] Comment on above: Performed By: #### C BC #### [facility] [address] [place] [address] Dr. Kavon Cardenas LYMPH # 3.1 103/ul Normal 1.2-3.8 [facility] Comment on above: Performed By: #### C BC #### [facility] [address] [place] [address] Dr. Kavon Cardenas Lymphocytes/100 WBC (Bld) 17.8 % Critically low 20.5-60.0 [facility] Comment on above: Performed By: #### C BC #### [facility] [address] [place] [address] Dr. Kavon Cardenas MANUAL DIFF REQ NO Normal [facility] Comment on above: Performed By: #### C BC #### [facility] [address] [place] [address] Dr. Kavon Cardenas MCH (RBC) [Entitic mass] 28.6 pg Normal 26.7-34.0 [facility] Comment on above: Performed By: #### C BC #### [facility] [address] [place] [address] Dr. Kavon Cardenas MCHC (RBC) [Mass/Vol] 32.2 g/dL Normal 29.9-35.2 [facility] Comment on above: Performed By: #### C BC #### [facility] [address] [place] [address] Dr. Kavon Cardenas MCV (RBC) [Entitic vol] 88.7 fL Normal 81.0-99.0 [facility] Comment on above: Performed By: #### C BC #### [facility] [address] [place] [address] Dr. Kavon Cardenas MONO # 0.6 103/ul Normal 0.3-0.8 [facility] Comment on above: Performed By: #### C BC #### [facility] [address] [place] [address] Dr. Kavon Cardenas Monocytes/100 WBC (Bld) 3.6 % Normal 1.7-12.0 [facility] Comment on above: Performed By: #### C BC #### [facility] [address] [place] [address] Dr. Kavon Cardenas NEUT # 13.0 103/ul Critically high 1.4-6.5 [facility] Comment on above: Performed By: #### C BC #### [facility] [address] [place] [address] Dr. Kavon Cardenas Neutrophils/100 WBC (Bld) 75.9 % Critically high 43.0-75.0 [facility] Comment on above: Performed By: #### C BC #### [facility] [address] [place] [address] Dr. Kavon Cardenas Platelet mean volume (Bld) [Entitic vol] 10.4 fL Normal 9.5-13.5 [facility] Comment on above: Performed By: #### C BC #### [facility] [address] [place] [address] Dr. Kavon Cardenas PLT 308 103/ul Normal 150-450 [facility] Comment on above: Performed By: #### C BC #### [facility] [address] [place] [address] Dr. Kavon Cardenas RBC 3.99 106/ul Critically low 4.20-5.40 [facility] Comment on above: Performed By: #### C BC #### [facility] [address] [place] [address] Dr. Kavon Cardenas WBC 17.1 103/ul Critically high 4.0-11.0 [facility] Comment on above: Performed By: #### C BC #### [facility] [address] [place] [address] Dr. Kavon Cardenas GLUCOSE - 1HRon 10-25-2022 Glucose [Mass/Vol] 139 mg/dL Critically high 74-[address] [facility] Comment on above: Performed By: #### F VPCR #### [facility] [address] [place] [address] Dr. Kavon Cardenas UA (CLEAN/CATCH) CORPORATE ACCOUNTANT/MICRO I F IND.on 10-23-2022 Bilirubin Ql (U) Negative Normal NEGATIVE [facility] Comment on above: Performed By: #### A 1C #### [facility] [address] [place] [address] Dr. Kavon Cardenas Clarity (U) CLEAR Normal CLEAR [facility] Comment on above: Performed By: #### A 1C #### [facility] [address] [place] [address] Dr. Kavon Cardenas Color (U) LT. YELLOW Normal YELLOW [facility] Comment on above: Performed By: #### A 1C #### [facility] [address] [place] [address] Dr. Kavon Cardenas Glucose Ql (U) Negative Normal NEGATIVE [facility] Comment on above: Performed By: #### A 1C #### [facility] [address] [place] [address] Dr. Kavon Cardenas Hemoglobin Ql (U) Negative Normal NEGATIVE [facility] Comment on above: Performed By: #### A 1C #### [facility] [address] [place] [address] Dr. Kavon Cardenas Ketones Ql (U) Negative Normal NEGATIVE [facility] Comment on above: Performed By: #### A 1C #### [facility] [address] [place] [address] Dr. Kavon Cardenas LEUKOCYTES Negative Normal NEGATIVE [facility] Comment on above: Performed By: #### A 1C #### [facility] [address] [place] [address] Dr. Kavon Cardenas Nitrite Ql (U) Negative Normal NEGATIVE [facility] Comment on above: Performed By: #### A 1C #### [facility] [address] [place] [address] Dr. Kavon aCrdenas pH (U) 5.5 [pH] Normal 5-9 [facility] Comment on above: Performed By: #### A 1C #### [facility] [address] [place] [address] Dr. Kavon Cardenas SPEC GRAVITY >=1.030 Abnormal 1.005-<=1.02 5 [facility] Comment on above: Performed By: #### A 1C #### [facility] [address] [place] [address] Dr. Kavon Cardenas UA PROTEIN Negative Normal NEGATIVE/ TRACE [facility] Comment on above: Performed By: #### A 1C #### [facility] [address] [place] [address] Dr. Kavon Cardenas UR MICRO IND NOT INDICATED Normal [facility] Comment on above: Performed By: #### A 1C #### [facility] [address] [place] [address] Dr. Kavon Cardenas Urobilinogen Qn (U) 0.2 {Bee'U}/dL Normal 0.2 - 1. 0 [facility] Comment on above: Performed By: #### A 1C #### [facility] [address], [place] [address] Dr. Kavon Cardenas Smear to Pathologiston 10-13 Smear to Pathologist ELECTRONICALLY SIGNED. LUCY ACOSTA M.D. Normal [facility] Comment on above: Performed By: #### P HARMONY Palmer CDP, RETCT #### [facility] [address] [place], [place] [id number] [employer] Supervisor: Miguel Betancourt MD Lead, Bloodon 10-12-2022 Lead, Blood 11 ug/dL High 0-4 [facility] Comment on above: Result Comment: Reference [...] Exposure, [employer], 2007. Contact your State Department of Health and/or applicable regulatory agency for specific guidance on medical management recommendations. Performed By: #### P HARMONY Palmer CDP, RETCT #### [facility] [address] [place] [address] [employer] Supervisor: Miguel Betancourt MD CBC with Auto Differentialon 10-11-2022 Absolute Eos # 0.27 [facility] Absolute Immature Granulocyte 0.18 [facility] Absolute Lymph # 2.82 [facility] Absolute [place] # 0.95 [facility] Basophils (Bld) [#/Vol] 0.04 10*3/uL [facility] Basophils/100 WBC (Bld) 0 % 0 - 2 % [facility] Eosinophils/100 WBC (Bld) 2 % 1 - 4 % [facility] Hematocrit (Bld) [Volume fraction] 35.9 % Low 36.3 - 47.1 % [facility] Hemoglobin (Bld) [Mass/Vol] 11.6 g/dL Low 11.9 - 15.1 g/dL [facility] Immature granulocytes/100 WBC (Bld) 1 % High 0 [facility] Lymphocytes/100 WBC (Bld) 19 % Low 24 - 43 % [facility] MCH (RBC) [Entitic mass] 29.0 pg 25.2 - 33.5 pg [facility] MCHC (RBC) [Mass/Vol] 32.3 g/dL 28.4 - 34.8 g/dL [facility] MCV (RBC) [Entitic vol] 89.8 fL 82.6 - 102.9 fL [facility] Monocytes/100 WBC (Bld) 6 % 3 - 12 % [facility] NRBC Automated 0.0 0.0 per 100 WBC [facility] Platelet distribution width (Bld) [Ratio] 14.6 % High 11.8 - 14.4 % [facility] Platelet mean volume (Bld) [Entitic vol] 10.5 fL 8.1 - 13.5 fL [facility] Platelets (Bld) [#/Vol] 294 10*3/uL [facility] RBC (Bld) [#/Vol] 4.00 10*6/uL 3.95 - 5.1 1 m/uL [facility] RBC (Bld) [#/Vol] ANISOCYTOSIS PRESENT [facility] Segmented neutrophils/100 WBC (Bld) 72 % High 36 - 65 % [facility] Segs Absolute 10.78 High [facility] WBC (Bld) [#/Vol] 15.0 10*3/uL High [facility] CBC with Diffon 04-05-2023 Abs. Basophil 0.04 k/uL Normal 0.00-0.20 [facility] Comment on above: Performed By: #### P B, PATH, CDP, RETCT #### [address] [address] [employer] Supervisor: Miguel Betancourt MD Abs.Imm.Granulocyte 0.18 k/uL Normal 0.00-0.30 [facility] Comment on above: Performed By: #### P B, PATH, CDP, RETCT #### [place] [address] [employer] Supervisor: Miguel Betancourt MD Abs.Neutrophil (Seg) 10.78 k/uL High 1.50-8.[address] [facility] Comment on above: Performed By: #### P B, PATH, CDP, RETCT #### [place] [address] [employer] Supervisor: Miguel Betancourt MD Basophils/100 WBC (Bld) 0 % Normal 0-2 [facility] Comment on above: Performed By: #### P B, PATH, CDP, RETCT #### [place] [address] [employer] Supervisor: Miguel Betancourt MD Eosinophils (Bld) [#/Vol] 0.27 10*3/uL Normal 0.00-0.44 [facility] Comment on above: Performed By: #### P B, PATH, CDP, RETCT #### [place] [address] [employer] Supervisor: Miguel Betancourt MD Eosinophils/100 WBC (Bld) 2 % Normal 1-4 [facility] Comment on above: Performed By: #### P B, PATH, CDP, RETCT #### [place] [address] [employer] Supervisor: Miguel Betancourt MD Erythrocyte distribution width (RBC) [Ratio] 14.6 % High 11.8-14.4 [facility] Comment on above: Performed By: #### P B, PATH, CDP, RETCT #### [address] [address] [employer] Supervisor: Miguel Betancourt MD Hematocrit (Bld) [Volume fraction] 35.9 % Low 36.3-47.1 [facility] Comment on above: Performed By: #### P B, PATH, CDP, RETCT #### [facility] [employer] [address] [place] [address] [employer] Supervisor: Miguel Betancourt MD Hemoglobin (Bld) [Mass/Vol] 11.6 g/dL Low 11.9-15.1 [facility] Comment on above: Performed By: #### P B, PATH, CDP, RETCT #### [place] [address] [employer] Supervisor: Miguel Betancourt MD Immature granulocytes/100 WBC (Bld) 1 % High 0 [facility] Comment on above: Performed By: #### P B, PATH, CDP, RETCT #### [address] [address] [employer] Supervisor: Miguel Betancourt MD Lymphocytes (Bld) [#/Vol] 2.82 10*3/uL Normal 1.10-3.70 [facility] Comment on above: Performed By: #### P B, PATH, CDP, RETCT #### [facility] [employer] [address] [place] [id number] [employer] Supervisor: Miguel Betancourt MD Lymphocytes/100 WBC (Bld) 19 % Low 24-43 [facility] Comment on above: Performed By: #### P B, PATH, CDP, RETCT #### [address] [address] [employer] Supervisor: Miguel Betancourt MD MCH (RBC) [Entitic mass] 29.0 pg Normal 25.2-33.5 [facility] Comment on above: Performed By: #### P B, PATH, CDP, RETCT #### [address] [address] [employer] Supervisor: Miguel Betancourt MD MCHC (RBC) [Mass/Vol] 32.3 g/dL Normal 28.4-34.8 [facility] Comment on above: Performed By: #### P B, PATH, CDP, RETCT #### [place] [address] [employer] Supervisor: Miguel Betancourt MD MCV (RBC) [Entitic vol] 89.8 fL Normal 82.6-102.9 [facility] Comment on above: Performed By: #### P B, PATH, CDP, RETCT #### [place] [address] [employer] Supervisor: Miguel Betancourt MD Monocytes (Bld) [#/Vol] 0.95 10*3/uL Normal 0.10-1.20 [facility] Comment on above: Performed By: #### P B, PATH, CDP, RETCT #### [place] [address] [employer] Supervisor: Miguel Betancourt MD Monocytes/100 WBC (Bld) 6 % Normal 3-12 [facility] Comment on above: Performed By: #### P B, PATH, CDP, RETCT #### [place] [address] [employer] Supervisor: Miguel Betancourt MD Neutrophil (Seg) 72 % High 36-65 [facility] Comment on above: Performed By: #### P B, PATH, CDP, RETCT #### [place] [address] [employer] Supervisor: Miguel Betancourt MD NRBC Automated 0.0 per 100 WBC Normal 0.0 [facility] Comment on above: Performed By: #### P B, PATH, CDP, RETCT #### [address] [address] [employer] Supervisor: Miguel Betancourt MD Platelet mean volume (Bld) [Entitic vol] 10.5 fL Normal 8.1-13.5 [facility] Comment on above: Performed By: #### P B, PATH, CDP, RETCT #### [address] [address] [employer] Supervisor: Miguel Betancourt MD Platelets (Bld) [#/Vol] 294 10*3/uL Normal 138-453 [facility] Comment on above: Performed By: #### P B, PATH, CDP, RETCT #### [address] [address] [employer] Supervisor: Miguel Betancourt MD RBC (Bld) [#/Vol] 4.00 10*6/uL Normal 3.95-5.11 [facility] Comment on above: Performed By: #### P B, PATH, CDP, RETCT #### [address] [address] [employer] Supervisor: Miguel Betancourt MD RBC morphology finding Nom (Bld) ANISOCYTOSIS PRESENT Normal [facility] Comment on above: Performed By: #### P B, PATH, CDP, RETCT #### [address] [address] [employer] Supervisor: Miguel Betancourt MD WBC (Bld) [#/Vol] 15.0 10*3/uL High 3.5-11.3 [facility] Comment on above: Performed By: #### P B, PATH, CDP, RETCT #### [address] [id number] [employer] Supervisor: Miguel Betancourt MD No Panel Informationon 10-11 Interpretation and review of laboratory results Abnormal [facility] Retic Counton 10-11-2022 Absolute Retic 0.090 M/uL High 0.030-0.080 [facility] Comment on above: Performed By: #### P B, PATH, CDP, RETCT #### [facility] [address] [place] [phone] [employer] Supervisor: Miguel Betancourt MD IRF 24.100 % High 2.7-18.3 [facility] Comment on above: Performed By: #### P B, PATH, CDP, RETCT #### [facility] [address] [place] [address] [phone] [employer] Supervisor: Miguel Betancourt MD Retic Count 2.2 % High 0.5-1.9 [facility] Comment on above: Performed By: #### P B, PATH, CDP, RETCT #### [facility] [address] [place] [address] [phone] [employer] Supervisor: Miguel Betancourt MD Retic Hemoglobin 31.8 pg Normal 28.2-35.7 [facility] Comment on above: Performed By: #### P B, PATH, CDP, RETCT #### [facility] [employer] [address] [place] [address] [phone] [employer] Supervisor: Miguel Betancourt MD Reticulocyteson 10-11-2022 Absolute Retic # 0.090 High [facility] Immature Retic Fract 24.1 % High 2.7 - 18.3 % [facility] Retic Hemoglobin 31.8 pg 28.2 - 35.7 pg [facility] Reticulocytes/100 RBC (Bld) 2.2 % High 0.5 - 1.9 % [facility] Surgical Pathologyon 023 Surgical Pathology (NOTE) [id number] [facility] [place] [facility] ANATOMIC PATHOLOGY [address] [place] [address] [id number] SURGICAL PATHOLOGY CONSULTATION Patient Name: DILMA KAUR MR#: [id number] Specimen #[id number] Procedures/Addenda PERIPHERAL BLOOD REPORT Date Ordered: 10/12/2022 Status: Signed Out Date Complete: 10/12/2022 By: Lucy Acosta Date Reported: 10/12/2022 INTERPRETATION Peripheral blood: Slightly normocytic normochromic anemia with minimal anisopoikilocytosis. Leukocytosis with neutrophilia, with an otherwise normal morphology. Platelet morphology is unremarkable. RESULTS-COMMENTS PERIPHERAL BLOOD STUDY CBC: Please see the electronic health record for CBC parameters ([id number], 10/11/2022, 09:56). Note: The electronic health record is reviewed. Lucy Acosta Source: A: Peripheral Blood Normal [facility] Comment on above: Performed By: #### P PPVS #### [address] [address] [employer] Supervisor: Miguel Betancourt MD PAP ACOG PANEL 2: 21 to 31on 09-27-2022 . . Normal [facility] Comment on above: Performed By: #### [id number] #### [facility] [address] [address] [address] Kavon Cardenas Age Gdln ACOG Testing - [facility] Comment on above: Performed By: #### [id number] #### [facility] [address] [address] [address] Kavon Cardenas DIAGNOSIS: Comment Normal [facility] Comment on above: Result Comment: NEGA TIVE FOR INTRAEPITHELIAL LESION OR MALIGNANCY. Performed By: #### [id number] #### [facility] [address] [address] [address] Kavon Cardenas Methodology: Comment [facility] Comment on above: Result Comment: This liquid based ThinPrep(R) pap test was screened with the use of an image guided system. Performed By: #### [id number] #### [facility] [address] [address] [address] Kavon Cardenas Note: Comment [facility] Comment on above: Result Comment: The Pap smear is a screening test designed to aid in the detection of premalignant and malignant conditions of the uterine cervix. It is not a diagnostic procedure and should not be used as the sole means of detecting cervical cancer. Both false-positive and false-negative reports do occur. . Performed By: #### [id number] #### [facility] [address] [place] [address] Dr. Kavon Cardenas Performed by: Comment Normal [facility] Comment on above: Result Comment: Garrick Hernandez Chief Commercial Officer (ASCP) Performed By: #### [id number] #### [facility] [address] [place] [address] Dr. Kavon Carednas Reflex Criteria: Comment Normal [facility] Comment on above: Result Comment: The HPV DNA reflex criteria were not met with this specimen result therefore, no HPV testing was performed. . Performed By: #### [id number] #### [facility] [address] [place] [address] Dr. Kavon Cardenas Specimen adequacy: Comment Normal [facility] Comment on above: Result Comment: Sati sfactory for evaluation. No endocervical component is identified. Performed By: #### [id number] #### [facility] [address] [place] [address] Dr. Kavon Cardenas CHLAMYDIA/GONOCOCCUS OLGA (SW AB/URINE/PAPon 09-21-2022 Chlamydia trachomatis, OLGA Negative Normal Negative [facility] Comment on above: Performed By: #### F VPCR #### [facility] [address] [place] [address] Dr. Kavon Cardenas Neisseria gonorrhoeae, OLGA Negative Normal Negative [facility] Comment on above: Performed By: #### F VPCR #### [facility] [address] [place] [address] Dr. Kavon Cardenas VAGINITIS/VAGINOSIS DNA PROB Fidencio 09-21-2022 Jada species Negative Normal Negative [facility] Comment on above: Performed By: #### C ARDIGM #### [facility] [address] [place] [address] Dr. Kavon Cardenas Gardnerella vaginalis Negative Normal Negative [facility] Comment on above: Performed By: #### C ARDIGM #### [facility] [address] [place] [address] Dr. Kavon Cardenas Trichomonas vaginalis Negative Normal Negative [facility] Comment on above: Performed By: #### C ARDIGM #### [facility] [address] [place] [address] Dr. Kavon Cardenas CBC AUTO DIFFon 09-17-2022 BASO # 0.1 103/ul Normal 0.0-0.1 [facility] Comment on above: Performed By: #### C BC #### [facility] [address] [place] [address] Dr. Kavon Cardenas Basophils/100 WBC (Bld) 0.3 % Normal 0.2-2.0 [facility] Comment on above: Performed By: #### C BC #### [facility] [address] [place] [address] Dr. Kavon Cardenas EO # 0.1 103/ul Normal 0.0-0.7 [facility] Comment on above: Performed By: #### C BC #### [facility] [address] [place] [address] Dr. Kavon Cardenas Eosinophils/100 WBC (Bld) 0.6 % Critically low 0.9-7.0 [facility] Comment on above: Performed By: #### C BC #### [facility] [address] [place] [address] Dr. Kavon Cardenas Erythrocyte distribution width (RBC) [Ratio] 14.5 % Normal 11.0-15.0 [facility] Comment on above: Performed By: #### C BC #### [facility] [address] [place] [address] Dr. Kavon Cardenas Hematocrit (Bld) [Volume fraction] 35.2 % Critically low 36.0-48.0 [facility] Comment on above: Performed By: #### C BC #### [facility] [address] [place] [address] Dr. Kavon Cardenas Hemoglobin (Bld) [Mass/Vol] 11.6 g/dL Critically low 12.0-16.0 [facility] Comment on above: Performed By: #### C BC #### [facility] [address] [place] [address] Dr. Kavon Cardenas IG # 0.10 10e3/ul Critically high 0.00-0.03 [facility] Comment on above: Performed By: #### C BC #### [facility] [address] [place] [address] Dr. Kavon Cardenas IG % 0.5 % Normal 0.0-0.5 [facility] Comment on above: Performed By: #### C BC #### [facility] [address] [place] [address] Dr. Kavon Cardenas LYMPH # 1.6 103/ul Normal 1.2-3.8 [facility] Comment on above: Performed By: #### C BC #### [facility] [address] [place] [address] Dr. Kavon Cardenas Lymphocytes/100 WBC (Bld) 8.9 % Critically low 20.5-60.0 [facility] Comment on above: Performed By: #### C BC #### [facility] [address] [place] [address] Dr. Kavon Cardenas MANUAL DIFF REQ NO Normal [facility] Comment on above: Performed By: #### C BC #### [facility] [address] [place] [address] Dr. Kavon Cardenas MCH (RBC) [Entitic mass] 28.7 pg Normal 26.7-34.0 [facility] Comment on above: Performed By: #### C BC #### [facility] [address] [place] [address] Dr. Kavon Cardenas MCHC (RBC) [Mass/Vol] 33.0 g/dL Normal 29.9-35.2 [facility] Comment on above: Performed By: #### C BC #### [facility] [address] [place] [address] Dr. Kavon Cardenas MCV (RBC) [Entitic vol] 87.1 fL Normal 81.0-99.0 [facility] Comment on above: Performed By: #### C BC #### [facility] [address] [address] [address] Kavon Cardenas MONO # 0.9 103/ul Critically high 0.3-0.8 [facility] Comment on above: Performed By: #### C BC #### [facility] [address] [address] [address] Kavon Cardenas Monocytes/100 WBC (Bld) 4.8 % Normal 1.7-12.0 [facility] Comment on above: Performed By: #### C BC #### [facility] [address] [place] [address] Dr. Kavon Cardenas NEUT # 15.5 103/ul Critically high 1.4-6.5 [facility] Comment on above: Performed By: #### C BC #### [facility] [address] [place] [address] Dr. Kavon Cardenas Neutrophils/100 WBC (Bld) 84.9 % Critically high 43.0-75.0 [facility] Comment on above: Performed By: #### C BC #### [facility] [address] [place] [address] Dr. Kavon Cardenas Platelet mean volume (Bld) [Entitic vol] 10.4 fL Normal 9.5-13.5 [facility] Comment on above: Performed By: #### C BC #### [facility] [address] [place] [address] Dr. Kavon Cardenas PLT 305 103/ul Normal 150-450 [facility] Comment on above: Performed By: #### C BC #### [facility] [address] [place], [place] [id number] Dr. Kavon Cardenas RBC 4.04 106/ul Critically low 4.20-5.40 [facility] Comment on above: Performed By: #### C BC #### [facility] [address] [place] [address] Dr. Kavon Cardenas WBC 18.3 103/ul Critically high 4.0-11.0 [facility] Comment on above: Performed By: #### C #### [facility] [address] [address] [address] Kavon Cardenas CTA CHEST WO W [...] ALENA ELY Date: 2022-09-17 17:59 Normal [facility] Covid-19 PCR (CVDTB)on 09-06 SARS-CoV-2 (COVID-19) RNA OLGA+probe Ql (Unsp spec) Not detected Normal NOT DETECTED [facility] Comment on above: Result Comment: When diagnostic [...] for this test is supported by the [place] of Health and Human Service's declaration that [...] used). Performed By: #### B GLYIGM #### [facility] [address] [place] [address] Dr. Kavon Cardenas ER URINE PROFILEon 3 Bilirubin Ql (U) Negative Normal NEGATIVE [facility] Comment on above: Performed By: #### A 1C #### [facility] [address] [place] [address] Dr. Kavon Cardenas Clarity (U) CLEAR Normal CLEAR [facility] Comment on above: Performed By: #### A 1C #### [facility] [address] [place] [address] Dr. Kavno Cardenas Color (U) YELLOW Normal YELLOW [facility] Comment on above: Performed By: #### A 1C #### [facility] [address] [place] [address] Dr. Kavon Cardenas ERUAHD A micrscopic examination will be performed if indicated. Normal [facility] Comment on above: Performed By: #### A 1C #### [facility] [address] [place] [address] Dr. Kavon Cardenas Glucose Ql (U) Negative Normal NEGATIVE [facility] Comment on above: Performed By: #### A 1C #### [facility] [address] [place] [address] Dr. Kavon Cardenas Hemoglobin Ql (U) Negative Normal NEGATIVE [facility] Comment on above: Performed By: #### A 1C #### [facility] [address] [place] [address] Dr. Kavon Cardenas Ketones Ql (U) Negative Normal NEGATIVE [facility] Comment on above: Performed By: #### A 1C #### [facility] [address] [place] [address] Dr. Kavon Cardenas LEUKOCYTES Negative Normal NEGATIVE [facility] Comment on above: Performed By: #### A 1C #### [facility] [address] [place] [address] Dr. Kavon Cardenas Nitrite Ql (U) Negative Normal NEGATIVE [facility] Comment on above: Performed By: #### A 1C #### [facility] [address] [place] [address] Dr. Kavon Cardenas pH (U) 6.5 [pH] Normal 5-9 [facility] Comment on above: Performed By: #### A 1C #### [facility] [address] [place] [address] Dr. Kavon Cardenas SPEC GRAVITY 1.025 Normal 1.005-<=1.[address] [place] [address] Comment on above: Performed By: #### A 1C #### [facility] [address] [place] [address] Dr. Kavon Cardenas UA PROTEIN Negative Normal NEGATIVE/ TRACE [facility] Comment on above: Performed By: #### A 1C #### [facility] [address] [place] [address] Dr. Kavon Cardenas UR MICRO IND NOT INDICATED Normal [facility] Comment on above: Performed By: #### A 1C #### [facility] [address] [place] [address] Dr. Kavon Cardenas Urobilinogen Qn (U) 0.2 {Bee'U}/dL Normal 0.2 - 1. 0 [facility] Comment on above: Performed By: #### A 1C #### [facility] [address] [place] [address] Dr. Kavon Cardenas INFLUENZA A AND B [facility]on 09[facility] Normal [facility] Comment on above: Result Comment: Nega tive for Flu A protein angiten. Infection due to Flu A cannot be ruled out. Flu A angiten in the sample may be below the detection limit of the test. Performed By: #### F VPCR #### [facility] [address] [place] [address] Dr. Kavon Cardenas INFLUBNEGH SEE BELOW Normal [facility] Comment on above: Result Comment: Nega tive for Flu B protein antigen. Infection due to Flu B cannot be ruled out. Flu B antigen in the sample may be below the detection limit of the test. Performed By: #### F VPCR #### [facility] [address] [place] [address] Dr. Kavon Cardenas INFLUENZA A AG Negative Normal NEGATIVE SEE COMMENT [facility] Comment on above: Performed By: #### F VPCR #### [facility] [address] [place] [address] Dr. Kavon Cardenas INFLUENZA B AG Negative Normal NEGATIVE SEE COMMENT [facility] Comment on above: Performed By: #### F VPCR #### [facility] [address] [place] [address] Dr. Kavon Cardenas PROF 14(COMP METB)on 023 Albumin [Mass/Vol] 3.1 g/dL Critically low 3.4-5.0 [facility] Comment on above: Performed By: #### C ARDIGM #### [facility] [address] [place] [address] Dr. Kavon Cardenas Albumin/Globulin [Mass ratio] 0.8 {ratio} Normal [facility] Comment on above: Performed By: #### C ARDIGM #### [facility] [address] [place] [address] Dr. Kavon Cardenas ALP [Catalytic activity/Vol] 100 U/L Normal 46-116 [facility] Comment on above: Performed By: #### C ARDIGM #### [facility] [address] [place] [address] Dr. Kavon Cardenas ALT [Catalytic activity/Vol] 30 U/L Normal 14-59 [facility] Comment on above: Performed By: #### C ARDIGM #### [facility] [address] [place] [address] Dr. Kavon Cardenas Anion gap [Moles/Vol] 14.0 mmol/L Normal [facility] Comment on above: Performed By: #### C ARDIGM #### [facility] [address] [place] [address] Dr. Kavon Cardenas AST [Catalytic activity/Vol] 17 U/L Normal 15-37 [facility] Comment on above: Performed By: #### C ARDIGM #### [facility] [address] [address] [address] Kavon Cardenas Bilirubin [Mass/Vol] 0.1 mg/dL Critically low 0.2-1.0 [facility] Comment on above: Performed By: #### C ARDIGM #### [facility] [address] [place] [address] Dr. Kavon Cardenas Calcium [Mass/Vol] 8.8 mg/dL Normal 8.5-10.1 [facility] Comment on above: Performed By: #### C ARDIGM #### [facility] [address] [place] [address] Dr. Kavon Cardenas Chloride [Moles/Vol] 105 mmol/L Normal 98-107 [facility] Comment on above: Performed By: #### C ARDIGM #### [facility] [address] [place] [address] Dr. Kavon Cardenas CO2 [Moles/Vol] 22.7 mmol/L Normal 21.0-32.0 [facility] Comment on above: Performed By: #### C ARDIGM #### [facility] [address] [place] [address] Dr. Kavon Cardenas Creatinine [Mass/Vol] 0.65 mg/dL Normal 0.55-1.02 [facility] Comment on above: Performed By: #### C ARDIGM #### [facility] [address] [place] [address] Dr. Kavon Cardenas EGFR-AF [place] >60 Normal >=60 [facility] Comment on above: Performed By: #### C ARDIGM #### [facility] [address] [place] [address] Dr. Kavon Cardenas EGFR-NON AF [place] >60 Normal >=60 [facility] Comment on above: Performed By: #### C ARDIGM #### [facility] [address] [place] [address] Dr. Kavon Cardenas Globulin (S) [Mass/Vol] 4.0 g/dL Normal [facility] Comment on above: Performed By: #### C ARDIGM #### [facility] [address] [address] [address] Kavon Cardenas Glucose [Mass/Vol] 100 mg/dL Normal 74-106 [facility] Comment on above: Performed By: #### C ARDIGM #### [facility] [address] [address] [address] Kavon Cardenas Potassium [Moles/Vol] 3.7 mmol/L Normal 3.5-5.1 [facility] Comment on above: Performed By: #### C ARDIGM #### [facility] [address] [address] [address] Kavon Cardenas Protein [Mass/Vol] 7.1 g/dL Normal 6.4-8.2 [facility] Comment on above: Performed By: #### C ARDIGM #### [facility] [address] [place] [address] Dr. Kavon Cardenas Sodium [Moles/Vol] 138 mmol/L Normal 136-145 [facility] Comment on above: Performed By: #### C ARDIGM #### [facility] [address] [address] [address] Kavon Cardenas Urea nitrogen [Mass/Vol] 6.0 mg/dL Critically low 7.0-18.0 [facility] Comment on above: Performed By: #### C ARDIGM #### [facility] [address] [address] [address] Kavon Cardenas Urea nitrogen/Creatinine [Mass ratio] 9.2 mg/mg Normal [facility] Comment on above: Performed By: #### C ARDIGM #### [facility] [address] [address] [address] Kavon Cardenas PROTIMEon 09-17-2022 INR Coag (PPP) [Relative time] {INR} Normal [facility] Comment on above: Performed By: #### A 1C #### [facility] [address] [address] [address] Kavon Cardenas INR GUIDELINES SEE BELOW Normal [facility] Comment on above: Result Comment: GODWIN RED INR: 2.0 - 3.0 CONDITIONS NOT LISTED BELOW 2.5 - 3.5 FOR PROSTHETIC HEART VALVE REPLACEMENT 2.5 - 3.5 RECURRENT THROMBOSIS Performed By: #### A 1C #### [facility] [address] [place] [address] Dr. Kavon Cardenas PT Coag (PPP) [Time] 9.3 s Normal 9.0-11.6 [facility] Comment on above: Performed By: #### A 1C #### [facility] [address] [place] [address] Dr. Kavon Cardenas PTTon 09-17-2022 aPTT Coag (Bld) [Time] 24.8 s Normal 22.3-36.2 Th e [facility] Comment on above: Performed By: #### C ARDIGM #### [facility] [address] [place] [address] Dr. Kavon Cardenas TROPONIN, HIGH SENSITIVITYon 09-17-2022 HSTROP <4.0 Normal 4.0-51.3 [facility] Comment on above: Result Comment: CUT- OFF POINTS HAVE BEEN ESTABLISHED BASED ON THE FOURTH UNIVERSAL DEFINITIONS OF MYOCARDIAL INFARCTION. THE UPPER REFERENCE LIMIT (URL) OF TROPONIN, DEFINED THE 99TH PERCENTILE OF cTnI DISTRIBUTION IN A REFERENCE POPULATION, HAS BEEN CONFIRMED THE DECISION THRESHOLD FOR ND DIAGNOSIS. Performed By: #### A 1C #### [facility] [address] [place] [address] Dr. Kavon Cardenas XR CHEST 1 Von [...] by: JORDAN ALVES Date: 2022-09-17 16:39 Normal [facility] GLUCOSE - 1HRon 09-11-2022 Glucose [Mass/Vol] 112 mg/dL Critically high 74-106 [facility] Comment on above: Performed By: #### G LU1HR #### [facility] [address] [place] [address] Dr. Kavon Cardenas PT Mutation [id number] 09-12-19 23 PT [id number] VARIANT Negative Normal [facility] Comment on above: Result Comment: (NOT E) Indication for testing: Assess genetic risk for thrombosis. NEGATIVE: The Factor II, prothrombin [id number] mutation, was not detected. Other causes of [...] M.D., Ph.D. BACKGROUND INFORMATION: Prothrombin (F2) c.*97G>A (U99773O) Pathogenic Variant CHARACTERISTICS: The Factor II, c.*97G>A (O95111R) pathogenic variant is a common genetic risk [...] CAUSE: Homozygosity or heterozygosity for F2 c.*97G>A (A28810Y). PATHOGENIC VARIANT TESTED: F2 c.*97G>A ([id number]). CLINICAL SENSITIVITY FOR VENOUS THROMBOSIS: Approximately 10 percent. METHODOLOGY: Polymerase chain reaction and fluorescence monitoring. ANALYTICAL SENSITIVITY AND SPECIFICITY: 99 percent. LIMITATIONS: Diagnostic errors can occur due to rare sequence variations. F2 gene variants, other than c.*97G>A (S50319K), will not be detected. This test was developed and its performance characteristics determined by [employer]. It has not been cleared or approved by the [place] Food and Drug Administration. This test was performed in a CLIA certified laboratory and is intended for clinical purposes. Counseling and informed consent are recommended for genetic testing. Consent forms are available online. Performed by [facility], [address] [place] [address] [id number] [email or web address], Osito Barnett MD, PHD, Lab. Director Performed By: #### P B #### [address] [address] [employer] Supervisor: Miguel Betancourt MD #### APTMUT #### [address] [id number] [employer] Supervisor: Nikhil Barragan MD #### AAFPM #### [address] [address] [employer] Supervisor: Miguel Betancourt MD [address] [id number] [employer] Supervisor: Nikhil Barragan MD PT PCR SPECIMEN Whole Blood Normal [facility] Comment on above: Performed By: #### P B #### [address] [address] [employer] Supervisor: Miguel Betancourt MD #### APTMUT #### [address] [address] [employer] Supervisor: Nikhil Barragan MD #### AAFPM #### [address] [address] [employer] Supervisor: Miguel Betancourt MD [address] [id number] [employer] Supervisor: Nikhil Barragan MD AFP, Maternalon 09-09-2022 Determined by Other [facility] Comment on above: Performed By: #### P B #### [address] [address] [employer] Supervisor: Miguel Betancourt MD #### APTMUT #### [facility] [address] [place] [address] [employer] Supervisor: Nikhil Barragan MD #### AAFPM #### [address] [address] [employer] Supervisor: Miguel Betancourt MD [facility] [address] [place] [address] [employer] Supervisor: Nikhil Barragan MD Due Date SEE NOTE Normal [facility] Comment on above: Result Comment: Resu lts for Estimated Due Date: 02 14 23 Performed By: #### P B #### [address] [address] [employer] Supervisor: Miguel Betancourt MD #### APTMUT #### [facility] [address] [place] [address] [employer] Supervisor: Nikhil Barragan MD #### AAFPM #### [address] [address] [employer] Supervisor: Miguel Betancourt MD [facility] [address], [place] [id number] [employer] Supervisor: Nikhil Barragan MD Family History No Normal [facility] Comment on above: Performed By: #### P B #### [address] [address] [employer] Supervisor: Miguel Betancourt MD #### APTMUT #### [facility] [address] [place] [address] [employer] Supervisor: Nikhil Barragan MD #### AAFPM #### [address] [address] [employer] Supervisor: Miguel Betancourt MD [facility] [address] [place] [address] [employer] Supervisor: Nikhil Barragan MD Gestat Age (exact) 17 wks, 0 days Normal [facility] Comment on above: Performed By: #### P B #### [address] [address] [employer] Supervisor: Miguel Betancourt MD #### APTMUT #### [facility] [address] [place] [address] [employer] Supervisor: Nikhil Barragan MD #### AAFPM #### [address] [address] [employer] Supervisor: Miguel Betancourt MD [address] [address] [employer] Supervisor: Nikhil Barragan MD Ins Req Matern Diab No [facility] Comment on above: Performed By: #### P B #### [address] [address] [employer] Supervisor: Miguel Betancourt MD #### APTMUT #### [facility] [address] [place] [address] [employer] Supervisor: Nikhil Barragan MD #### AAFPM #### [address] [address] [employer] Supervisor: Miguel Betancourt MD [address] [address] [employer] Supervisor: Nikhil Barragan MD Interpretation Screen Neg [facility] Comment on above: Result Comment: (NOT E) INTERPRETATION: SCREEN NEGATIVE for open spina bifida Neural Tube Defects (NTD) Negative Pre-Test Post-Test Cutoff Neural Tube Defects Risks 1:1030 < 1:74353 1:250 Comments: The risk of an open neural tube defect is less than the screening cut-off. This test was developed and its performance characteristics determined by [employer]. It has not been cleared or approved by the [place] Food and Drug Administration. This test was performed in a CLIA certified laboratory and is intended for clinical purposes. Performed By: #### P B #### [address] [address] [employer] Supervisor: Miguel Betancourt MD #### APTMUT #### [facility] [address] [place] [address] [employer] Supervisor: Nikhil Barragan MD #### AAFPM #### [address] [address] [employer] Supervisor: Mgiuel Betancourt MD [facility] [address] [place] [address] [employer] Supervisor: Nikhil Barragan MD [age] [facility] Comment on above: Performed By: #### P B #### [address] [address] [employer] Supervisor: Miguel Betancourt MD #### APTMUT #### [facility] [address] [place] [address] [employer] Supervisor: Nikhil Barragan MD #### AAFPM #### [address] [address] [employer] Supervisor: Miguel Betancourt MD [facility] [address] [place] [address] [employer] Supervisor: Nikhil Barragan MD Maternal Race Nonblack [facility] Comment on above: Performed By: #### P B #### [address] [address] [employer] Supervisor: Miguel Betancourt MD #### APTMUT #### [facility] [address] [place] [address] [employer] Supervisor: Nikhil Barragan MD #### AAFPM #### [address] [address] [employer] Supervisor: Miguel Betancourt MD [facility] [address] [place] [address] [employer] Supervisor: Nikhil Barragan MD Maternal Weight 230.0 lbs. Normal [facility] Comment on above: Performed By: #### P B #### [facility] [address] [place] [address] [employer] Supervisor: Miguel Betancourt MD #### APTMUT #### [facility] [address] [place] [address] [employer] Supervisor: Nikhil Barragan MD #### AAFPM #### [facility] [address] [place] [address] [employer] Supervisor: Miguel Betancourt MD [facility] [address] [place] [address] [employer] Supervisor: Nikhil Barragan MD MoM for AFP 0.93 Normal [facility] Comment on above: Performed By: #### P B #### [facility] [address] [place] [address] [employer] Supervisor: Miguel Betancourt MD #### APTMUT #### [facility] [address] [place] [address] [employer] Supervisor: Nikhil Barragan MD #### AAFPM #### [facility] [address] [place] [address] [employer] Supervisor: Miguel Betancourt MD [facility] [address] [place] [address] [employer] Supervisor: Nikhil Barragan MD Number of Fetuses Yee Normal [facility] Comment on above: Performed By: #### P B #### [facility] [address] [place] [address] [employer] Supervisor: Miguel Betancourt MD #### APTMUT #### [facility] [address] [place] [address] [employer] Supervisor: Nikhil Barragan MD #### AAFPM #### [facility] [address] [place] [address] [employer] Supervisor: Miguel Betancourt MD [facility] [address] [place] [address] [employer] Supervisor: Nikhil Barragan MD Patient's AFP 27 ng/mL [facility] Comment on above: Performed By: #### P B #### [address] [address] [employer] Supervisor: Miguel Betancourt MD #### APTMUT #### [facility] [address] [place] [address] [employer] Supervisor: Nikhil Barragan MD #### AAFPM #### [address] [address] [employer] Supervisor: Miguel Betancourt MD [address] [phone] [employer] Supervisor: Nikhil Barragan MD Smoking Unknown [facility] Comment on above: Performed By: #### P B #### [address] [address] [employer] Supervisor: Miguel Betancourt MD #### APTMUT #### [facility] [address] [place] [address] [employer] Supervisor: Nikhil Barragan MD #### AAFPM #### [address] [address] [employer] Supervisor: Miguel Betancourt MD [facility] [address] [place] [address] [employer] Supervisor: Nikhil Barragan MD Specimen See Note [facility] Comment on above: Result Comment: (NOT E) Initial sample Performed by [employer], [address] [place], [place] [id number] [email or web address], Osito Barnett MD, PHD, Lab. Director Performed By: #### P B #### [address] [address] [employer] Supervisor: Miguel Betancourt MD #### APTMUT #### [facility] [address] [place] [address] [employer] Supervisor: Nikhil Barragan MD #### AAFPM #### [address] [address] [employer] Supervisor: Miguel Betancourt MD [facility] [address] [place] [address] [employer] Supervisor: Nikhil Barragan MD [facility], [facility] 09-07-2022 Current Smoking INFORMATION NOT PROVIDED Normal [facility] Comment on above: Performed By: #### P B #### [address] [address] [employer] Supervisor: Miguel Betancourt MD #### APTMUT #### [facility] [address] [place] [address] [employer] Supervisor: Nikhil Braragan MD #### AAFPM #### [address] [address] [employer] Supervisor: Miguel Betancourt MD [address] [address] [employer] Supervisor: Nikhil Barragan MD [facility] Normal [facility] Comment on above: Performed By: #### P B #### [facility] [address] [place] [address] [employer] Supervisor: Miguel Betancourt MD #### APTMUT #### [facility] [address] [place] [address] [employer] Supervisor: Nikhil Barragan MD #### AAFPM #### [address] [address] [employer] Supervisor: Miguel Betancourt MD [facility] [address] [place] [address] [employer] Supervisor: Nikhil Barragan MD Diabetic Negative Normal [facility] Comment on above: Performed By: #### P B #### [facility] [address] [place] [address] [employer] Supervisor: Miguel Betancourt MD #### APTMUT #### [facility] [address] [place] [address] [employer] Supervisor: Nikhil Barragan MD #### AAFPM #### [facility] [address] [place] [address] [employer] Supervisor: Miguel Betancourt MD [facility] [address] [place] [address] [employer] Supervisor: Nikhil Barragan MD Donor Egg INFORMATION NOT PROVIDED [facility] Comment on above: Performed By: #### P B #### [address] [address] [employer] Supervisor: Miguel Betancourt MD #### APTMUT #### [facility] [address] [place] [address] [employer] Supervisor: Nikhil Barragan MD #### AAFPM #### [address] [address] [employer] Supervisor: Miguel Betancourt MD [facility] [address] [place] [address] [employer] Supervisor: Nikhil Barragan MD Estimated Due Date [facility] Comment on above: Performed By: #### P B #### [address] [address] [employer] Supervisor: Miguel Betancourt MD #### APTMUT #### [facility] [address] [place] [address] [employer] Supervisor: Nikhil Barragan MD #### AAFPM #### [address] [address] [employer] Supervisor: Miguel Betancourt MD [facility] [address] [place] [address] [employer] Supervisor: Nikhil Barragan MD Family History Negative [facility] Comment on above: Performed By: #### P B #### [address] [address] [employer] Supervisor: Miguel Betancourt MD #### APTMUT #### [facility] [address] [place] [address] [employer] Supervisor: Nikhil Barragan MD #### AAFPM #### [address] [address] [employer] Supervisor: Miguel Betancourt MD [facility] [address] [place] [address] [employer] Supervisor: Nikhil Barragan MD In Vitro Fertalizat INFORMATION NOT PROVIDED [facility] Comment on above: Performed By: #### P B #### [address] [address] [employer] Supervisor: Miguel Betancourt MD #### APTMUT #### [facility] [address] [place] [address] [employer] Supervisor: Nikhil Barragan MD #### AAFPM #### [address] [address] [employer] Supervisor: Miguel Betancourt MD [facility] [address] [place] [address] [employer] Supervisor: Nikhil Barragan MD LMP date [id number] [facility] Comment on above: Performed By: #### P B #### [address] [address] [employer] Supervisor: Miguel Betancourt MD #### APTMUT #### [facility] [address] [place] [address] [employer] Supervisor: Nikhil Barragan MD #### AAFPM #### [address] [address] [employer] Supervisor: Miguel Betancourt MD [facility] [address] [place] [address] [employer] Supervisor: Nikhil Barragan MD Maternal date [id number] [facility] Comment on above: Performed By: #### P B #### [facility] [address] [place] [address] [employer] Supervisor: Miguel Betancourt MD #### APTMUT #### [facility] [address] [place] [address] [employer] Supervisor: Nikhil Barragan MD #### AAFPM #### [address] [address] [employer] Supervisor: Miguel Betancourt MD [facility] [address] [place] [address] [employer] Supervisor: Nikhil Barragan MD Maternal Weight 230 Normal [facility] Comment on above: Performed By: #### P B #### [address] [address] [employer] Supervisor: Miguel Betancourt MD #### APTMUT #### [facility] [address] [place] [address] [employer] Supervisor: Nikhil Barragan MD #### AAFPM #### [address] [address] [employer] Supervisor: Miguel Betancourt MD [facility] [address] [place] [address] [employer] Supervisor: Nikhil Barragan MD Monochorionic Twins INFORMATION NOT PROVIDED [facility] Comment on above: Performed By: #### P B #### [address] [address] [employer] Supervisor: Miguel Betancourt MD #### APTMUT #### [facility] [address] [place] [address] [employer] Supervisor: Nikhil Barragan MD #### AAFPM #### [address] [address] [employer] Supervisor: Miguel Betancourt MD [facility] [address] [place] [address] [employer] Supervisor: Nikhil Barragan MD Patient Weight Units [facility] Comment on above: Performed By: #### P B #### [address] [address] [employer] Supervisor: Miguel Betancourt MD #### APTMUT #### [facility] [address] [place] [address] [employer] Supervisor: Nikhil Barragan MD #### AAFPM #### [address] [address] [employer] Supervisor: Miguel Betancourt MD [facility] [address] [place] [address] [employer] Supervisor: Nikhil Barragan MD Race (Maternal) WHITE [facility] Comment on above: Performed By: #### P B #### [address] [address] [employer] Supervisor: Miguel Betancourt MD #### APTMUT #### [facility] [address] [place] [address] [employer] Supervisor: Nikhil Barragan MD #### AAFPM #### [address] [address] [employer] Supervisor: Miguel Betancourt MD [facility] [address] [place] [address] [employer] Supervisor: Nikhil Barragan MD Repeat Specimen INFORMATION NOT PROVIDED Normal [facility] Comment on above: Performed By: #### P B #### [facility] [address] [place] [address] [employer] Supervisor: Miguel Betancourt MD #### APTMUT #### [facility] [address] [place] [address] [employer] Supervisor: Nikhil Barragan MD #### AAFPM #### [facility] [address] [place] [address] [employer] Supervisor: Miguel Betancourt MD [facility] [address] [place] [address] [employer] Supervisor: Nikhil Barragan MD Valproic/Carbamazep INFORMATION NOT PROVIDED Normal [facility] Comment on above: Performed By: #### P B #### [address] [address] [employer] Supervisor: Miguel Betancourt MD #### APTMUT #### [facility] [address] [place] [address] [employer] Supervisor: Nikhil Barragan MD #### AAFPM #### [facility] [address] [place] [address] [employer] Supervisor: Miguel Betancourt MD [facility] [address] [place] [address] [employer] Supervisor: Nikhil Barragan MD Lead, Bloodon 09-07-2022 Lead, Blood 7 ug/dL High 0-4 [facility] Comment on above: Result Comment: Reference [...] Lead Exposure, Environmental Health Perspectives, 2007. Contact [facility] Department of Health and/or applicable regulatory agency for specific guidance on medical management recommendations. Performed By: #### P B #### [employer] [address] [place] [phone] [employer] Supervisor: Miguel Betancourt MD #### APTMUT #### [address] [phone] [employer] Supervisor: Nikhil Barragan MD #### AAFPM #### [facility] [address] [place] [phone] [employer] Supervisor: Miguel Betancourt MD [address] [phone] [employer] Supervisor: Nikhil Barragan MD Cytogeneticson 09-06-2022 Cytogenetics (NOTE) [...] Professional component performed by Raissa Espinal, Ph.D., [facility], [address], [place], [place] (IA #: [id number]). Electronically Signed Out Raissa Espinal, Ph.D., .A.C.Milo. [employer] [facility] [facility], [place] [facility] [address] [place], [place] [address] CHROMOSOME STUDY CONSULTATION REPORT [place] [facility] Normal [facility] Comment on above: Performed By: #### P PPCM #### [address] [address] [employer] Supervisor: Miguel Betancourt MD Cytogenetics (NOTE) Specimen(s) Received: PERIPHERAL BLOOD, MICROARRAY Clinical Information: Recurrent Loss with Current RESULTS: Diagnosis: [facility] Microarray Result: arr[hg19](1-22,X)x2 Normal Female SNP Microarray Result:arr[hg19](1-22 ,X)x2 Normal Female INTERPRETATION: Microarray analysis was performed on this specimen using the Affymetrix CytoScanHD array which includes 1.7 million oligonucleotide probes and 750,000 SNP probes. There were no clinically significant abnormalities. Note: This individual's DNA showed one or more copy number variants (CNVs) of no known clinical significance that are not included in this report. See chromosome analysis (CM23-78). Test Details Platform Affymetrix infoBizzcanHD NetAffx Build [id number] (hg19) No. Oligo Probes 1.7M No. SNPs 750K Chip ID [id number] Method: Whole-genome array based comparative genomic hybridization (aCGH) analysis is performed using a high density cytogenetic microarray Affymetrix CytoScanHD, designed for the accurate and comprehensive analysis of chromosomal variations in the human genome. CytoScanHD was designed to measure copy number variations, to detect allelic imbalances (i.e. Uniparental disomy), and to genotype the sample by SNP analysis (single nucleotide polymorphism). The infoBizzcanHD solution is based on the independent analysis [...] Chromosome Analysis Suite ([place]), was developed by [employer] in [place], [place]. This software package enables viewing results data (CYCHP, XNCHP, and OSCHP files) and summarization of chromosomal aberrations across the Genome-Wide Human SNP 6.0 Array. The software allows direct access to external databases such as NCBI, UCSC Genome Browser, Ensembl, ClinVar and OMIM. Disclaimer: This oligonucleotide and SNP aCGH test was developed and its performance determined by [employer]. The microarray detects chromosomal aneuploidy in addition [...] be regarded as investigational or for research. [facility] is certified under the Clinical Laboratory Improvement Amendments of 1988 (CLIA-88) as qualified to perform high complexity clinical laboratory testing. The technical component of this analysis was performed at [employer]; analysis and interpretation are provided at [facility] by a board-certified clinical wastewater treatment supervisor with additional training in chromosome microarray analysis. Professional component performed by Raissa Espinal, Ph.D., [facility], [facility] [address], [place], [place] (CLIA #: [id number]). Electronically Signed Out Raissa Espinal, Ph.D., F.A.C.M.G. [employer] [facility] [place] [facility] [address] [place], [place] [address] MICROARRAY CONSULTATION REPORT [facility] Normal [facility] Comment on above: Performed By: #### P PPMA #### [facility] [address] [place], [place] [id number] [employer] Supervisor: MD TAYLA Suh BOX TEST PT SEND OUTo n 07-31-2022 SENT TO REF LAB 07/31/2022 Normal [facility] Comment on above: Performed By: #### C BC #### [facility] [address] [place], [place] [address] Dr. Kavon Cardenas US PREG TVon 07-20-2022 [...] 5 days with normal heartbeat. Normal [facility] HEPATITIS C VIRUS AB W/ REFL EX QUANTon 07-18-2022 HCV AB <0.1 Normal 0.0-0.9 [facility] Comment on above: Performed By: #### C BC #### [facility] [address] [place] [address] [address] Kavon Cardenas Interpretation: Comment Normal [facility] Comment on above: Result Comment: Nega tive Not infected with HCV, unless recent infection is suspected or other evidence exists to indicate HCV infection. Performed By: #### C BC #### [facility] [address] [place] [address] Dr. Kavon Cardenas HEP B SURFACE ANTIGEN SCREEN on 07-15-2022 HBsAg Screen Negative Normal Negative [facility] Comment on above: Performed By: #### C BC #### [facility] [address] [place] [address] Dr. Kavon Cardenas HIV 1 AND 2 WITH REFLEXon HIV Screen 4th Generation wRfx Non-Reactive Normal Non Reactive [facility] Comment on above: Result Comment: HIV Negative HIV-1/HIV-2 antibodies and HIV-1 p24 antigen were NOT detected. There is no laboratory evidence of HIV infection. Performed By: #### C BC #### [facility] [address] [place] [address] Dr. Kavon Cardenas RPR QUANTon 07-15-2022 Rapid Plasma Reagin, Quant Non-Reactive Normal NonRea<1:1 [facility] Comment on above: Result Comment: Plea se Note: This test does not meet current guidelines for screening and diagnosis of syphilis. This test is intended for following treatment response in patients being treated for syphilis infection. To screen for syphilis infection, a reflex cascade that includes both RPR and a treponema-specific assay should be utilized, such as Treponema pallidum (Syphilis) Screening [place] (174062) or Rapid Plasma Reagin (RPR) Test With Reflex to Quantitative RPR and Confirmatory Treponema pallidum Antibodies (666920). Performed By: #### A 1C #### [facility] [address] [place] [address] Dr. Kavon Cardenas RUBELLA AB IGGon 07-15-2022 Rubella Antibodies, IgG 1.77 index Normal Immune >0.99 [facility] Comment on above: Result Comment: Non- immune <0.90 Equivocal 0.90 - 0.99 Immune >0.99 Performed By: #### R UBIGG #### [facility] [address] [place] [address] Dr. Kavon Cardenas CBC AUTO DIFFon 07-14-2022 BASO # 0.1 103/ul Normal 0.0-0.1 [facility] [facility] Comment on above: Performed By: #### F VPCR #### [facility] [address] [place] [address] Dr. Kavon Cardenas Basophils/100 WBC (Bld) 0.5 % Normal 0.2-2.0 [facility] Comment on above: Performed By: #### F VPCR #### [facility] [address] [place] [address] Dr. Kavon Cardenas EO # 0.8 103/ul Critically high 0.0-0.7 [facility] Comment on above: Performed By: #### F VPCR #### [facility] [address] [place] [address] Dr. Kavon Cardenas Eosinophils/100 WBC (Bld) 5.7 % Normal 0.9-7.0 [facility] Comment on above: Performed By: #### F VPCR #### [facility] [address] [place] [address] Dr. Kavon Cardenas Erythrocyte distribution width (RBC) [Ratio] 14.2 % Normal 11.0-15.0 [facility] Comment on above: Performed By: #### F VPCR #### [facility] [address] [place] [address] Dr. Kavon Cardenas Hematocrit (Bld) [Volume fraction] 39.2 % Normal 36.0-48.0 [facility] Comment on above: Performed By: #### F VPCR #### [facility] [address] [place] [address] Dr. Kavon Cardenas Hemoglobin (Bld) [Mass/Vol] 12.9 g/dL Normal 12.0-16.0 [facility] Comment on above: Performed By: #### F VPCR #### [facility] [address] [place] [address] Dr. Kavon Cardenas IG # 0.09 10e3/ul Critically high 0.00-0.03 [facility] Comment on above: Performed By: #### F VPCR #### [facility] [address] [place] [address] Dr. Kavon Cardenas IG % 0.6 % Critically high 0.0-0.5 [facility] Comment on above: Performed By: #### F VPCR #### [facility] [address] [place] [address] Dr. Kavon Cardenas LYMPH # 2.7 103/ul Normal 1.2-3.8 [facility] Comment on above: Performed By: #### F VPCR #### [facility] [address] [place] [address] Dr. Kavon Cardenas Lymphocytes/100 WBC (Bld) 18.3 % Critically low 20.5-60.0 [facility] Comment on above: Performed By: #### F VPCR #### [facility] [address] [place] [address] Dr. Kavon Cardenas MANUAL DIFF REQ NO Normal [facility] Comment on above: Performed By: #### F VPCR #### [facility] [address] [place] [address] Dr. Kavon Cardenas MCH (RBC) [Entitic mass] 28.2 pg Normal 26.7-34.0 [facility] Comment on above: Performed By: #### F VPCR #### [facility] [address] [place] [address] Dr. Kavon Cardenas MCHC (RBC) [Mass/Vol] 32.9 g/dL Normal 29.9-35.2 [facility] Comment on above: Performed By: #### F VPCR #### [facility] [address] [place] [address] Dr. Kavon Cardenas MCV (RBC) [Entitic vol] 85.8 fL Normal 81.0-99.0 [facility] Comment on above: Performed By: #### F VPCR #### [facility] [address] [place] [address] Dr. Kavon Cardenas MONO # 0.7 103/ul Normal 0.3-0.8 [facility] Comment on above: Performed By: #### F VPCR #### [facility] [address] [place] [address] Dr. Kavon Cardenas Monocytes/100 WBC (Bld) 4.9 % Normal 1.7-12.0 [facility] Comment on above: Performed By: #### F VPCR #### [facility] [address] [place] [address] Dr. Kavon Cardenas NEUT # 10.4 103/ul Critically high 1.4-6.5 [facility] Comment on above: Performed By: #### F VPCR #### [facility] [address] [place] [address] Dr. Kavon Cardenas Neutrophils/100 WBC (Bld) 70.0 % Normal 43.0-75.0 [facility] Comment on above: Performed By: #### F VPCR #### [facility] [address] [place] [address] Dr. Kavon Cardenas Platelet mean volume (Bld) [Entitic vol] 10.1 fL Normal 9.5-13.5 [facility] Comment on above: Performed By: #### F VPCR #### [facility] [address] [place] [address] Dr. Kavon Cardenas PLT 388 103/ul Normal 150-450 [facility] Comment on above: Performed By: #### F VPCR #### [facility] [address] [place] [address] Dr. Kavon Cardenas RBC 4.57 106/ul Normal 4.20-5.40 [facility] Comment on above: Performed By: #### F VPCR #### [facility] [address] [place] [address] Dr. Kavon Cardenas WBC 14.8 103/ul Critically high 4.0-11.0 [facility] Comment on above: Performed By: #### F VPCR #### [facility] [address] [place] [address] Dr. Kavon Cardenas CULTURE URINEon 07-14-2022 CULTURE URINE Culture Observations : LIGHT GROWTH OF MIXED GENITAL KYRA. NO POTENTIAL PATHOGENS SEEN. Normal [facility] Comment on above: Performed By: #### C ARDIGM #### [facility] [address] [place] [address] Dr. Kavon Cardenas GLYCOHEMOGLOBIN A1Con 2022 ADA RECOMMENDATION SEE BELOW Normal [facility] Comment on above: Result Comment: ADA RECOMMENDED LIMIT 4.0 - 6.0 ADA THERAPEUTIC TARGET < 7.0 ACTION SUGGESTED > 7.0 Performed By: #### A 1C #### [facility] [address] [place] [address] Dr. Kavon Cardenas Glucose [Mass/Vol] 103 mg/dL Normal [facility] Comment on above: Performed By: #### A 1C #### [facility] [address] [place] [address] Dr. Kavon Cardenas HbA1c (Bld) [Mass fraction] 5.2 % Normal 4.5-6.2 [facility] Comment on above: Performed By: #### A 1C #### [facility] [address] [place] [address] Dr. Kavon Cardenas TYPE AND SCREENon 07-14-2022 TYPE AND SCREEN Negative Normal [facility] Comment on above: Performed By: #### C ARDIGM #### [facility] [address] [place] [address] Dr. Kavon Cardenas PREG QUANT HCGon 06-14-2022 HCG QUANT 1962 mIU/mL Normal [facility] Comment on above: Performed By: #### C BC #### [facility] [address] [place] [address] Dr. Kavon Cardenas HCG RANGE SEE BELOW Normal [facility] Comment on above: Result Comment: 5-50 0.2-1 WEEK 50-500 1-2 WEEKS 100-5,000 2-3 WEEKS 500-10,000 3-4 WEEKS 1,000-50,000 4-5 WEEKS 10,000-100,000 5-6 WEEKS 15,000-200,000 6-8 WEEKS 10,000-100,000 2-3 MONTHS Performed By: #### C BC #### [facility] [address] [address] [address] Kavon Cardenas CBC AUTO DIFFon 06-12-2022 BASO # 0.1 103/ul Normal 0.0-0.1 [facility] Comment on above: Performed By: #### C BC #### [facility] [address] [place] [address] Dr. Kavon Cardenas Basophils/100 WBC (Bld) 0.6 % Normal 0.2-2.0 [facility] Comment on above: Performed By: #### C BC #### [facility] [address] [place] [address] Dr. Kavon Cadrenas EO # 1.1 103/ul Critically high 0.0-0.7 [facility] Comment on above: Performed By: #### C BC #### [facility] [address] [place] [address] Dr. Kavon Cardenas Eosinophils/100 WBC (Bld) 8.1 % Critically high 0.9-7.0 [facility] Comment on above: Performed By: #### C BC #### [facility] [address] [place] [address] Dr. Kavon Cardenas Erythrocyte distribution width (RBC) [Ratio] 13.8 % Normal 11.0-15.0 [facility] Comment on above: Performed By: #### C BC #### [facility] [address] [place] [address] Dr. Kavon Cardenas Hematocrit (Bld) [Volume fraction] 37.4 % Normal 36.0-48.0 [facility] Comment on above: Performed By: #### C BC #### [facility] [address] [place] [address] Dr. Kavon Cardenas Hemoglobin (Bld) [Mass/Vol] 12.4 g/dL Normal 12.0-16.0 [facility] Comment on above: Performed By: #### C BC #### [facility] [address] [place] [address] Dr. Kavon Cardenas IG # 0.06 10e3/ul Critically high 0.00-0.03 [facility] Comment on above: Performed By: #### C BC #### [facility] [address] [place] [address] Dr. Kavon Cardenas IG % 0.4 % Normal 0.0-0.5 [facility] Comment on above: Performed By: #### C BC #### [facility] [address] [place] [address] Dr. Kavon Cardenas LYMPH # 3.4 103/ul Normal 1.2-3.8 [facility] Comment on above: Performed By: #### C BC #### [facility] [address] [place] [address] Dr. Kavon Cardenas Lymphocytes/100 WBC (Bld) 25.4 % Normal 20.5-60.0 [facility] Comment on above: Performed By: #### C BC #### [facility] [address] [place] [address] Dr. Kavon Cardenas MANUAL DIFF REQ NO Normal [facility] Comment on above: Performed By: #### C BC #### [facility] [address] [place] [address] Dr. Kavon Cardenas MCH (RBC) [Entitic mass] 28.5 pg Normal 26.7-34.0 [facility] Comment on above: Performed By: #### C BC #### [facility] [address] [place] [address] Dr. Kavon Cardenas MCHC (RBC) [Mass/Vol] 33.2 g/dL Normal 29.9-35.2 [facility] Comment on above: Performed By: #### C BC #### [facility] [address] [place] [address] Dr. Kavon Cardenas MCV (RBC) [Entitic vol] 86.0 fL Normal 81.0-99.0 [facility] Comment on above: Performed By: #### C BC #### [facility] [address] [place] [address] Dr. Kavon Cardenas MONO # 0.9 103/ul Critically high 0.3-0.8 [facility] Comment on above: Performed By: #### C BC #### [facility] [address] [address] [address] Kavon Cardenas Monocytes/100 WBC (Bld) 6.5 % Normal 1.7-12.0 [facility] Comment on above: Performed By: #### C BC #### [facility] [address] [place] [address] Dr. Kavon Cardenas NEUT # 7.9 103/ul Critically high 1.4-6.5 [facility] Comment on above: Performed By: #### C BC #### [facility] [address] [place] [address] Dr. Kavon Cardenas Neutrophils/100 WBC (Bld) 59.0 % Normal 43.0-75.0 [facility] Comment on above: Performed By: #### C BC #### [facility] [address] [place] [address] Dr. Kavon Cardenas Platelet mean volume (Bld) [Entitic vol] 9.6 fL Normal 9.5-13.5 [facility] Comment on above: Performed By: #### C BC #### [facility] [address] [place] [address] Dr. Kavon Cardenas PLT 353 103/ul Normal 150-450 [facility] Comment on above: Performed By: #### C BC #### [facility] [address] [place] [address] Dr. Kavon Cardenas RBC 4.35 106/ul Normal 4.20-5.40 [facility] Comment on above: Performed By: #### C BC #### [facility] [address] [place] [address] Dr. Kavon Cardenas WBC 13.5 103/ul Critically high 4.0-11.0 [facility] Comment on above: Performed By: #### C BC #### [facility] [address] [place], [place] [id number] Dr. Kavon Cardenas GLYCOHEMOGLOBIN A1Con 2021 ADA RECOMMENDATION SEE BELOW Normal [facility] Comment on above: Result Comment: ADA RECOMMENDED LIMIT 4.0 - 6.0 ADA THERAPEUTIC TARGET < 7.0 ACTION SUGGESTED > 7.0 Performed By: #### B GLYIGM #### [facility] [address] [address] [address] Kavon Cardenas Glucose [Mass/Vol] 114 mg/dL Normal [facility] Comment on above: Performed By: #### B GLYIGM #### [facility] [address] [address] [address] Kavon Cardenas HbA1c (Bld) [Mass fraction] 5.6 % Normal 4.5-6.2 [facility] Comment on above: Performed By: #### B GLYIGM #### [facility] [address] [address] [address] Kavon Cardenas LIPID PROFILEon 06-12-2022 CHOL-HDL RATIO NORM SEE BELOW Normal [facility] Comment on above: Result Comment: 3.3 - 4.4 LOW RISK 4.4 - 7.1 AVERAGE RISK 7.1 - 11.0 MODERATE RISK >11.0 HIGH RISK Performed By: #### F VPCR #### [facility] [address] [place] [address] Dr. Kavon Cardneas Cholesterol [Mass/Vol] 164 mg/dL Normal <=200 [facility] Comment on above: Performed By: #### F VPCR #### [facility] [address] [place] [address] Dr. Kavon Cardenas Cholesterol in HDL [Mass/Vol] 37 mg/dL Critically low 40-60 [facility] Comment on above: Performed By: #### F VPCR #### [facility] [address] [address] [address] Kavon Cardenas Cholesterol in LDL [Mass/Vol] 85.4 mg/dL Normal [facility] Comment on above: Performed By: #### F VPCR #### [facility] [address] [address] [address] Kavon Cardenas Cholesterol.total/Chol esterol in HDL [Mass ratio] 4.4 {ratio} Normal [facility] Comment on above: Performed By: #### F VPCR #### [facility] [address] [place] [address] Dr. Kavon Cardenas HDL NORMAL > or = 60 mg/dl - LO W CARDIOVASCULAR RISK <40 mg/dl - HIGH CARDIOVASCULAR RISK Normal [facility] Comment on above: Performed By: #### F VPCR #### [facility] [address] [address] [address] Kavon Cardenas LDL CALC NORMAL SEE BELOW Normal [facility] Comment on above: Result Comment: <100 mg/dl OPTIMAL 100 - 129 mg/dl NEAR OR ABOVE OPTIMAL 130 - 159 mg/dl BORDERLINE HIGH 160 - 189 mg/dl HIGH >190 mg/dl VERY HIGH Performed By: #### F VPCR #### [facility] [address] [address] [address] Kavon Cardenas Triglyceride [Mass/Vol] 208 mg/dL Critically high <=150 [facility] Comment on above: Performed By: #### F VPCR #### [facility] [address] [place] [address] Dr. Kavon Cardenas VLDL CALC 41.6 mg/dL Normal [facility] Comment on above: Performed By: #### F VPCR #### [facility] [address] [place] [address] Dr. Kavon Cardenas LIVER PROFILEon 06-12-2022 Albumin [Mass/Vol] 3.3 g/dL Critically low 3.4-5.0 [facility] Comment on above: Performed By: #### F VPCR #### [facility] [address] [place] [address] Dr. Kavon Cardenas Albumin/Globulin [Mass ratio] 0.8 {ratio} Normal [facility] Comment on above: Performed By: #### F VPCR #### [facility] [address] [place] [address] Dr. Kavon Cardenas ALP [Catalytic activity/Vol] 96 U/L Normal 46-116 [facility] Comment on above: Performed By: #### F VPCR #### [facility] [address] [place] [address] Dr. Kavon Cardenas ALT [Catalytic activity/Vol] 19 U/L Normal 14-59 [facility] Comment on above: Performed By: #### F VPCR #### [facility] [address] [place] [address] Dr. Kavon Cardenas AST [Catalytic activity/Vol] 12 U/L Critically low 15-37 [facility] Comment on above: Performed By: #### F VPCR #### [facility] [address] [place] [address] Dr. Kavon Cardenas BILI, CONJUGATED 0.1 mg/dL Normal 0.0-0.2 [facility] Comment on above: Performed By: #### F VPCR #### [facility] [address] [place] [address] Dr. Kavon Cardenas Bilirubin [Mass/Vol] 0.3 mg/dL Normal 0.2-1.0 [facility] Comment on above: Performed By: #### F VPCR #### [facility] [address] [place] [address] Dr. Kavon Cardenas Globulin (S) [Mass/Vol] 4.1 g/dL Normal [facility] Comment on above: Performed By: #### F VPCR #### [facility] [address] [place] [address] Dr. Kavon Cardenas Protein [Mass/Vol] 7.4 g/dL Normal 6.4-8.2 [facility] Comment on above: Performed By: #### F VPCR #### [facility] [address] [place] [address] Dr. Kavon Cardenas PREG QUANT HCGon 06-12-2022 HCG QUANT 636 mIU/mL Normal [facility] Comment on above: Performed By: #### A 1C #### [facility] [address] [place] [address] Dr. Kavon Cardenas HCG RANGE SEE BELOW Normal [facility] Comment on above: Result Comment: 5-50 0.2-1 WEEK 50-500 1-2 WEEKS 100-5,000 2-3 WEEKS 500-10,000 3-4 WEEKS 1,000-50,000 4-5 WEEKS 10,000-100,000 5-6 WEEKS 15,000-200,000 6-8 WEEKS 10,000-100,000 2-3 MONTHS Performed By: #### A 1C #### [facility] [address] [place] [address] Dr. Kavon Cardenas PROF CHEM 8 (BAS METB)on Anion gap [Moles/Vol] 11.3 mmol/L Normal Th [facility] Comment on above: Performed By: #### F VPCR #### [facility] [address] [address] [address] Kavon Cardenas Calcium [Mass/Vol] 9.2 mg/dL Normal 8.5-10.1 [facility] Comment on above: Performed By: #### F VPCR #### [facility] [address] [address] [address] Kavon Cardenas Chloride [Moles/Vol] 104 mmol/L Normal 98-107 [facility] Comment on above: Performed By: #### F VPCR #### [facility] [address] [address] [address] Kavon Cardenas CO2 [Moles/Vol] 25.7 mmol/L Normal 21.0-32.0 [facility] Comment on above: Performed By: #### F VPCR #### [facility] [address] [address] [address] Kavon Cardenas Creatinine [Mass/Vol] 0.81 mg/dL Normal 0.55-1.02 [facility] Comment on above: Performed By: #### F VPCR #### [facility] [address] [place] [address] Dr. Kavon Cardenas EGFR-AF [place] >60 Normal >=60 [facility] Comment on above: Performed By: #### F VPCR #### [facility] [address] [address] [address] Kavon Cardenas EGFR-NON AF [place] >60 Normal >=60 [facility] Comment on above: Performed By: #### F VPCR #### [facility] [address] [address] [address] Kavon Cardenas Glucose [Mass/Vol] 89 mg/dL Normal 74-106 [facility] Comment on above: Performed By: #### F VPCR #### [facility] [address] [place] [address] Dr. Kavon Cardenas Potassium [Moles/Vol] 4.0 mmol/L Normal 3.5-5.1 [facility] Comment on above: Performed By: #### F VPCR #### [facility] [address] [address] [address] Kavon Cardenas Sodium [Moles/Vol] 137 mmol/L Normal 136-145 [facility] Comment on above: Performed By: #### F VPCR #### [facility] [address] [address] [address] Kavon Cardenas Urea nitrogen [Mass/Vol] 8.0 mg/dL Normal 7.0-18.0 [facility] Comment on above: Performed By: #### F VPCR #### [facility] [address] [place] [address] Dr. Kavon Cardenas Urea nitrogen/Creatinine [Mass ratio] 9.9 mg/mg Normal [facility] Comment on above: Performed By: #### F VPCR #### [facility] [address] [address] [address] Kavon Cardenas TSHon 06-12-2022 TSH 1.461 uIU/mL Normal 0.358-3.740 [facility] Comment on above: Performed By: #### F VPCR #### [facility] [address] [place] [address] Dr. Kavon Cardenas FACTOR V LEIDEN MUTATION RENAN LYSISon 04-10-2022 Factor V Leiden Comment Normal The [facility] Comment on above: Result Comment: Resu lt: c.1601G>A ([id number]) - Not Detected . This result is not associated with an increased risk for venous thromboembolism. See Additional Clinical Information and Comments. Additional Clinical Information: Venous thromboembolism is a multifactorial disease influenced by genetic, environmental, and circumstantial risk factors. The c.1601G>A (p. [id number]) variant in the F5 gene, commonly referred [...] c.*97G>A variant and Factor V Leiden (PMID: 86537564). Additional risk factors include but are not [...] health care providers to discuss results at [phone] ([phone]). . Test Details: Variant Analyzed: c.1601G>A (p. [id number]), referred to as Factor V Leiden . [...] developed and its performance characteristics determined by [employer]. It has not been cleared or approved by the Food and Drug Administration. . References: Bruce S, Itzel AK, Renny R, Blas WW, Jorge JH; ACMG Professional Practice and Guidelines Committee. Addendum: [employer] consensus statement on factor V Leiden mutation testing. [employer]. 2020Sep 10. doi: 10.1038/e60734-366-34930-y. PMID: 65051665. . Jc GIRALDO. Factor V Leiden Thrombophilia. 1998November 19 [Updated 2017Jul 12]. In: Mendel MP, Epi HH, Jd RA, et al., editors. Alison(Ajit) [Internet]. [place] ([place]): [facility]; 5283-6415. Available from: https://www.ncbi.nlm.nih.gov/books/FQS2048/ . Dimitri S, Itzel AK, Barreto X, Jono B, Ian EB, Barbara P, Jose CS; ACMG Laboratory Textbook Associate Committee. Venous thromboembolism laboratory testing (factor V Leiden and factor II c.*97G>A), 2018 update: a technical standard of the [employer] [employer] and [employer] (ACMG). [employer]. 2018 Jun;20(12):5147-4180. doi: 10.1038/b47212-046-5100-l. Epub 2017Apr 12. PMID: 26905121. . Kathi Mercer, PhD, FACMG Liv Joseph, PhD Clint Green, PhD, FACMG Willie Manuel, PhD, FACMG Jesus Bradford, PhD, FACMG W Radha Roca, PhD, FACMG Cris Odom, PhD, FACMG Sonia Alejo, PhD, FAC Performed By: #### F VPCR #### [facility] [address] [place] [address] Dr. Kavon Cardenas PAP ACOG PANEL 2: 21 to 31on 04-07-2022 . . Normal [facility] Comment on above: Performed By: #### C ARDIGM #### [facility] [address] [address] [address] Kavon Cardenas Age Gdln ACOG Testing - Normal [facility] Comment on above: Performed By: #### C ARDIGM #### [facility] [address] [address] [address] Kavon Cardenas DIAGNOSIS: Comment [facility] Comment on above: Result Comment: NEGA TIVE FOR INTRAEPITHELIAL LESION OR MALIGNANCY. Performed By: #### C ARDIGM #### [facility] [address] [address] [address] Kavon Cardenas Methodology: Comment Normal [facility] Comment on above: Result Comment: This liquid based ThinPrep(R) pap test was screened with the use of an image guided system. Performed By: #### C ARDIGM #### [facility] [address] [address] [address] Kavon Cardenas Note: Comment Normal [facility] Comment on above: Result Comment: The Pap smear is a screening test designed to aid in the detection of premalignant and malignant conditions of the uterine cervix. It is not a diagnostic procedure and should not be used as the sole means of detecting cervical cancer. Both false-positive and false-negative reports do occur. . Performed By: #### C ARDIGM #### [facility] [address] [address] [address] Kavon Cardenas Performed by: Comment Normal [facility] Comment on above: Result Comment: Barbara Lim Chief Commercial Officer (ASCP) Performed By: #### C ARDIGM #### [facility] [address] [address] [address] Kavon Cardenas Reflex Criteria: Comment Normal [facility] Comment on above: Result Comment: The HPV DNA reflex criteria were not met with this specimen result therefore, no HPV testing was performed. . Performed By: #### C ARDIGM #### [facility] [address] [address] [address] Kavon Cardenas Specimen adequacy: Comment Normal [facility] Comment on above: Result Comment: Sati sfactory for evaluation. Endocervical and/or squamous metaplastic cells (endocervical component) are present. Performed By: #### C ARDIGM #### [facility] [address] [address] [address] Kavon Cardenas ANTIPHOSPHOLIPID SYNDROME DC OFILEon 04-06-2022 Anticardiolipin Ab,IgG,Qn <9 Normal 0-14 [facility] Comment on above: Result Comment: Nega tive: <15 Indeterminate: 15 - 20 Low-Med Positive: >20 - 80 High Positive: >80 Performed at: CB Performed By: #### C ARDIGM #### [facility] [address] [place] [address] Dr. Kavon Cardenas Anticardiolipin Ab,IgM,Qn <9 Normal 0-12 [facility] Comment on above: Result Comment: Nega tive: <13 Indeterminate: 13 - 20 Low-Med Positive: >20 - 80 High Positive: >80 Performed at: CB Performed By: #### C ARDIGM #### [facility] [address] [place] [address] Dr. Kavon Cardenas APS Panel Interpretation Comment Normal [facility] Comment on above: Result Comment: Plea se refer to the Coag Studies Interp Report. Performed at: BN Performed By: #### C ARDIGM #### [facility] [address] [place] [address] Dr. Kavon Cardenas aPTT Coag (Bld) [Time] 25.1 s Normal 22.9-30.2 Th e [facility] Comment on above: Result Comment: Perf ormed at: BN Performed By: #### C ARDIGM #### [facility] [address] [place] [address] Dr. Kavon Cardenas Beta-2 Glycoprotein I Ab, IgG <9 Normal 0-20 [facility] Comment on above: Result Comment: The reference interval reflects a 3SD or 99th percentile interval, which is thought to represent a potentially clinically significant result in accordance with the International Consensus Statement on the classification criteria for definitive antiphospholipid syndrome (APS). J Thromb Haem 2006;4:295-306. Performed at: BN Performed By: #### C ARDIGM #### [facility] [address] [place] [address] Dr. Kavon Cardenas Beta-2 Glycoprotein I Ab, IgM <9 Normal 0-32 [facility] Comment on above: Result Comment: The reference interval reflects a 3SD or 99th percentile interval, which is thought to represent a potentially clinically significant result in accordance with the International Consensus Statement on the classification criteria for definitive antiphospholipid syndrome (APS). J Thromb Haem 2006;4:295-306. Performed at: BN Performed By: #### C ARDIGM #### [facility] [address] [place] [address] Dr. Yilan Cardenas dRVVT 42.0 sec Normal 0.0-47.0 [facility] Comment on above: Result Comment: Perf ormed at: BN Performed By: #### C ARDIGM #### [facility] [address] [place] [address] Dr. Kavon Cardenas Hex Phase Phospolipid 4 sec Normal 0-11 [facility] Comment on above: Result Comment: Perf ormed at: BN Performed By: #### C ARDIGM #### [facility] [address] [place] [address] Dr. Kavon Cardenas INR Coag (PPP) [Relative time] 1.0 {INR} Normal 0.9-1.2 [facility] Comment on above: Result Comment: Refe rence interval is for non-anticoagulated patients. . Suggested INR therapeutic range for Vitamin K antagonist therapy: Standard Dose (moderate intensity therapeutic range): 2.0 - 3.0 Higher intensity therapeutic range 2.5 - 3.5 Performed at: BN Performed By: #### C ARDIGM #### [facility] [address] [place] [address] Dr. Kavon Cardenas PT Coag (PPP) [Time] 10.1 s Normal 9.1-12.0 [facility] Comment on above: Result Comment: Perf ormed at: BN Performed By: #### C ARDIGM #### [facility] [address] [place] [address] Dr. Kavon Cardenas Thrombin Time 16.5 sec Normal 0.0-23.0 [facility] Comment on above: Result Comment: Perf ormed at: BN Performed By: #### C ARDIGM #### [facility] [address] [place] [address] Dr. Kavon Cardenas ANTITHROMBIN ACTIVITYon 03-10 Antithrombin Activity 114 % Normal 75-135 [facility] Comment on above: Result Comment: Dire ct Xa inhibitor anticoagulants such as rivaroxaban, apixaban and edoxaban will lead to spuriously elevated antithrombin activity levels possibly masking a deficiency. Performed By: #### C ARDIGM #### [facility] [address] [address] [address] Kavon Cardenas B-2 GLYCOPROTEIN AB IGGon Beta-2 Glycoprotein I Ab, IgG <9 Normal 0-20 [facility] Comment on above: Result Comment: The reference interval reflects a 3SD or 99th percentile interval, which is thought to represent a potentially clinically significant result in accordance with the International Consensus Statement on the classification criteria for definitive antiphospholipid syndrome (APS). J Thromb Haem 2006;4:295-306. Performed By: #### A 1C #### [facility] [address] [place] [address] Dr. Kavon Cardenas B2-GLYCOPROTEIN 1 AB IGMon 0 04-06-2022 Beta-2 Glycoprotein I Ab, IgM <9 Normal 0-32 [facility] Comment on above: Result Comment: The reference interval reflects a 3SD or 99th percentile interval, which is thought to represent a potentially clinically significant result in accordance with the International Consensus Statement on the classification criteria for definitive antiphospholipid syndrome (APS). J Thromb Haem 2006;4:295-306. Performed By: #### B GLYIGM #### [facility] [address] [place] [address] Dr. Kavon Cardenas LUPUS ANTICOAGULANT W/REFLEX on 04-06-2022 aPTT Coag (Bld) [Time] 35.9 s Normal 0.0-51.9 Th [facility] Comment on above: Performed By: #### L UPUSRF #### [facility] [address] [place] [address] Dr. Kavon Cardenas dRVVT 39.5 sec Normal 0.0-47.0 [facility] Comment on above: Performed By: #### L UPUSRF #### [facility] [address] [place] [address] Dr. Kavon Cardenas Interpretation Comment: Normal [facility] Comment on above: Result Comment: No l upus anticoagulant was detected. Performed By: #### L UPUSRF #### [facility] [address] [place] [address] Dr. Kavon Cardenas PROTEIN C FUNC ACTIVITYon Protein C-Functional 137 % Normal 73-180 [facility] Comment on above: Performed By: #### F VPCR #### [facility] [address] [address] [address] Kavon Cardenas PROTEIN S ANTIGENon 04-06-20 22 Protein S, Free 99 % Normal 61-136 [facility] Comment on above: Performed By: #### A 1C #### [facility] [address] [address] [address] Kavon Cardenas Protein S, Total 90 % Normal 60-150 [facility] Comment on above: Result Comment: This test was developed and its performance characteristics determined by [facility]. It has not been cleared or approved by the Food and Drug Administration. Performed By: #### A 1C #### [facility] [address] [address] [address] Kavon Cardenas ANTICARDIOLIPIN AB (SHORTY) IGG on 04-05-2022 Anticardiolipin Ab,IgG,Qn <9 Normal 0-14 [facility] Comment on above: Result Comment: Nega tive: <15 Indeterminate: 15 - 20 Low-Med Positive: >20 - 80 High Positive: >80 Performed By: #### F VPCR #### [facility] [address] [address] [address] Kavon Cardenas ANTICARDIOLIPIN AB (SHORTY) IGM on 04-05-2022 Anticardiolipin Ab,IgM,Qn <9 Normal 0-12 [facility] Comment on above: Result Comment: Nega tive: <13 Indeterminate: 13 - 20 Low-Med Positive: >20 - 80 High Positive: >80 Performed By: #### C ARDIGM #### [facility] [address] [address] [address] Kavon Cardenas FREE T4on 04-04-2022 Free T4 [Mass/Vol] 0.91 ng/dL Normal 0.76-1.46 [facility] Comment on above: Performed By: #### C BC #### [facility] [address] [address] [address] Kavon Cardenas GLYCOHEMOGLOBIN A1Con 2021 ADA RECOMMENDATION SEE BELOW Normal [facility] Comment on above: Result Comment: ADA RECOMMENDED LIMIT 4.0 - 6.0 ADA THERAPEUTIC TARGET < 7.0 ACTION SUGGESTED > 7.0 Performed By: #### A 1C #### [facility] [address] [address] [address] Kavon Cardenas Glucose [Mass/Vol] 108 mg/dL Normal [facility] Comment on above: Performed By: #### A 1C #### [facility] [address] [address] [address] Kavon Cardenas HbA1c (Bld) [Mass fraction] 5.4 % Normal 4.5-6.2 [facility] Comment on above: Performed By: #### A 1C #### [facility] [address] [place] [address] Dr. Kavon Cardenas TSHon 04-04-2022 TSH 1.208 uIU/mL Normal 0.358-3.740 [facility] Comment on above: Performed By: #### A 1C #### [facility] [address] [place] [address] Dr. Kavon Cardenas Vital Signs Date Time Vital Sign Value Performing Clinician Facility 04-16-2025 15:10 Body height 167.64 cm Mikel Ibarra MD Work Phone: [facility] 04-16-2025 15:10-040 Body mass index (BMI) [Ratio] 33.9 kg/m2 Mikel Ibarra MD Work Phone: [facility] 04-16-2025 15:10040 Body temperature 98.2 [degF] Mikel Ibarra MD Work Phone: [facility] 04-16-2025 15:10040 Body weight 95.36 kg Mikel Ibarra MD Work Phone: [facility] 04-16-2025 15:10-040 Diastolic blood pressure 70 mm[Hg] Mikel Ibarra MD Work Phone: [facility] 04-16-2025 15:10040 Heart rate 51 /min Mikel Ibarra MD Work Phone: [facility] 04-16-2025 15:10-0400 Respiratory rate 16 /min Mikel Ibarra MD Work Phone: [facility] 04-16-2025 15:10-0400 SaO2% (BldA) [Mass fraction] 98 % Mikel Ibarra MD Work Phone: [facility] 04-16-2025 15:10-0400 Systolic blood pressure 100 mm[Hg] Mikel Ibarra MD Work Phone: [facility] 02-03-2025 10:54-0400 Body mass index (BMI) [Ratio] 33.78 kg/m2 David Padmini DO Work Phone: [facility] 02-03-2025 10:54-0400 Body weight 92.08 kg David Padmini DO Work Phone: [facility] 02-03-2025 10:54-0400 Diastolic blood pressure 74 mm[Hg] David Padmini DO Work Phone: [facility] 02-03-2025 10:54-0400 Systolic blood pressure 114 mm[Hg] David Padmini DO Work Phone: [facility] 10-30-2024 14:57-0400 Body height 165.1 cm Mikel Ibarra MD Work Phone: [facility] 10-30-2024 14:57-0400 Body mass index (BMI) [Ratio] 36.78 kg/m2 Mikel Ibarra MD Work Phone: [facility] 10-30-2024 14:57-0400 Body temperature 97.81 [degF] Mikel Ibarra MD Work Phone: [facility] 10-30-2024 14:57-0400 Body weight 100.25 kg Mikel Ibarra MD Work Phone: [facility] 10-30-2024 14:57-0400 Diastolic blood pressure 66 mm[Hg] Mikel Ibarra MD Work Phone: [facility] 10-30-2024 14:57-0400 Heart rate 99 /min Mikel Ibarra MD Work Phone: [facility] 10-30-2024 14:57-0400 Respiratory rate 22 /min Mikel Ibarra MD Work Phone: [facility] 10-30-2024 14:57-0400 SaO2% (BldA) [Mass fraction] 98 % Mikel Ibarra MD Work Phone: [facility] 10-30-2024 14:57-0400 Systolic blood pressure 120 mm[Hg] Mikel Ibarra MD Work Phone: [facility] 10-15-2024 13:25-0400 Hourly Rounding Kenny Loaizaer [facility] 10-15-2024 13:25-0400 Promise to Return Kenny Loaizaer [facility] 10-15-2024 12:25-0400 Hourly Rounding Kenny Loaizaer [facility] 10-15-2024 12:25-0400 Promise to Return Kenny Giovani [facility] 10-15-2024 11:37-0400 Heart rate 77 /min Kenny Vallescker [facility] 10-15-2024 11:37-0400 SaO2% (BldA) [Mass fraction] 100 % Kenny Giovani [facility] 10-15-2024 11:36-0400 Diastolic blood pressure 71 mm[Hg] Kenny Giovani [facility] 10-15-2024 11:36-0400 Mean blood pressure 83 mm[Hg] Kenny Giovani [facility] 10-15-2024 11:36-0400 Systolic blood pressure 106 mm[Hg] Kenny Giovani [facility] 10-15-2024 11:36-0400 Body temperature 98.06 [degF] Kenny Matute [facility] 10-15-2024 11:26-0400 Hourly Rounding Kenny Matute [facility] 10-15-2024 11:26-0400 Promise to Return Kenny Matute [facility] 10-15-2024 07:52-0400 Heart rate 66 /min Kenny Matute [facility] 10-15-2024 07:52-0400 SaO2% (BldA) [Mass fraction] 100 % Kenny Matute [facility] 10-15-2024 07:51-0400 Body temperature 98.06 [degF] Kenny Matute [facility] 10-15-2024 07:51-0400 Diastolic blood pressure 79 mm[Hg] Kenny Matute [facility] 10-15-2024 07:51-0400 Mean blood pressure 90 mm[Hg] Kenny Matute [facility] 10-15-2024 07:51-0400 Systolic blood pressure 113 mm[Hg] Kenny Matute [facility] 10-15-2024 00:40-0400 Blood Pressure Location Kenny Matute [facility] 10-15-2024 00:40-0400 Body temperature 98.06 [degF] Kenny Loaizaer [facility] 10-15-2024 00:40-0400 Diastolic blood pressure 63 mm[Hg] Kenny Loaizaer [facility] 10-15-2024 00:40-0400 Heart rate 80 /min Kenny Matute [facility] 10-15-2024 00:40-0400 Mean blood pressure 80 mm[Hg] Kenny Matute [facility] 10-15-2024 00:40-0400 Respiratory rate 16 /min Kenny Matute [facility] 10-15-2024 00:40-0400 SaO2% (BldA) [Mass fraction] 99 % Kenny Matute [facility] 10-15-2024 00:40-0400 Systolic blood pressure 115 mm[Hg] Kenny Matute [facility] 10-14-2024 19:00-0400 Body temperature 97.88 [degF] Kenny Matute [facility] 10-14-2024 19:00-0400 Mean blood pressure 86 mm[Hg] Kenny Matute [facility] 10-14-2024 19:00-0400 Respiratory rate 14 /min Kenny Matute [facility] 10-14-2024 15:25-0400 Mean blood pressure 89 mm[Hg] Kenny Matute [facility] 10-14-2024 15:25-0400 Body temperature 98.42 [degF] Kenny Matute [facility] 10-14-2024 10:58-0400 Body temperature 98.42 [degF] Kenny Matute [facility] 10-14-2024 07:37-0400 Respiratory rate 16 /min Kenny Matute [facility] 10-13-2024 23:45-0400 Blood Pressure Location Kenny Matute [facility] 10-13-2024 23:45-0400 Mean blood pressure 86 mm[Hg] Kenny Matute [facility] 10-12-2024 17:40-0400 Heart rate 97 /min Kenny Matute [facility] 10-12-2024 12:00-0400 Heart rate 102 /min Kenny Matute [facility] 10-12-2024 10:00-0400 Heart rate 81 /min Kenny Matute [facility] 08-04-2024 13:16-0500 Body height 165.1 cm Mikel Ibarra MD Work Phone: [facility] 08-04-2024 13:16-0500 Body mass index (BMI) [Ratio] 36.44 kg/m2 Mikel Ibarra MD Work Phone: [facility] 08-04-2024 13:16-0500 Body temperature 98.2 [degF] Mikel Ibarra MD Work Phone: [facility] 08-04-2024 13:16-0500 Body weight 99.34 kg Mikel Ibarra MD Work Phone: [facility] 08-04-2024 13:16-0500 Diastolic blood pressure 58 mm[Hg] Mikel Ibarra MD Work Phone: [facility] 08-04-2024 13:16-0500 Heart rate 95 /min Mikel Ibarra MD Work Phone: [facility] 08-04-2024 13:16-0500 Respiratory rate 22 /min Mikel Ibarra MD Work Phone: [facility] 08-04-2024 13:16-0500 SaO2% (BldA) [Mass fraction] 97 % Mikel bIarra MD Work Phone: [facility] 08-04-2024 13:16-0500 Systolic blood pressure 124 mm[Hg] Mikel Ibarra MD Work Phone: [facility] 05-10-2024 01:30-0400 Diastolic blood pressure 62 mm[Hg] Jimmy Hay MD Work Phone: [facility] 05-10-2024 01:30-0400 Heart rate 104 /min Jimmy Hay MD Work Phone: [facility] 05-10-2024 01:30-0400 Respiratory rate 18 /min Jimmy Hay MD Work Phone: [facility] 05-10-2024 01:30-0400 SaO2% (BldA) [Mass fraction] 95 % Jimmy Hay MD Work Phone: [facility] 05-10-2024 01:30-0400 Systolic blood pressure 115 mm[Hg] Jimmy Hay MD Work Phone: [facility] 05-09-2024 20:46-0400 Body height 165.1 cm Jimmy Hay MD Work Phone: [facility] 05-09-2024 20:46-0400 Body mass index (BMI) [Ratio] 35.78 kg/m2 Jimmy Hay MD Work Phone: [facility] 05-09-2024 20:46-0400 Body temperature 98.4 [degF] Jimmy Hay MD Work Phone: [facility] 05-09-2024 20:46-0400 Body weight 97.52 kg Jimmy Hay MD Work Phone: [facility] 04-30-2024 08:46-0400 Body height 165.1 cm Mikel Ibarra MD Work Phone: [facility] 04-30-2024 08:46-0400 Body mass index (BMI) [Ratio] 35.94 kg/m2 Mikel Ibarra MD Work Phone: [facility] 04-30-2024 08:46-0400 Body temperature 97.5 [degF] Mikel Ibarra MD Work Phone: [facility] 04-30-2024 08:46-0400 Body weight 97.98 kg Mikel Ibarra MD Work Phone: [facility] 04-30-2024 08:46-0400 Diastolic blood pressure 86 mm[Hg] Mikel Ibarra MD Work Phone: [facility] [facility] 08:46-0400 Heart rate 86 /min Mikel bIarra MD Work Phone: [facility] 04-30-2024 08:46-0400 Respiratory rate 20 /min Mikel Ibarra MD Work Phone: [facility] 04-30-2024 08:46-0400 SaO2% (BldA) [Mass fraction] 97 % Mikel Ibarra MD Work Phone: [facility] 04-30-2024 08:46-0400 Systolic blood pressure 104 mm[Hg] Mikel Ibarra MD Work Phone: [facility] Healthcare Encounters Encounter Date Encounter Type Care Provider Facility Start: 04-21-2025 ambulatory Cesar Montez acility:[facility] Start: 04-16-2025 End: 04-16-2025 ambulatory Mikel Ibarra MD Work Phone: [facility] Work Phone: Start: 04-16-2025 End: 04-16-2025 Patient encounter procedure Mikel Ibarra MD -[facility] Devin Work Phone: Start: 04-08-2025 Registered Recurring Pedro Mallory MD -[facility] Start: 02-03-2025 End: 02-03-2025 Bamboo flowsheet David Padmini DO Work Phone: [facility] Cody KHALIL Start: 02-03-2025 End: 02-03-2025 Bamboo flowsheet David Caizio DO Work Phone: [facility] Start: 02-03-2025 End: 02-03-2025 Office outpatient visit 15 minutes David Caizio DO Work Phone: [facility] Comment on above: Encounter for fertil ity [...] Evaluation and management of inpatient Kenny Matute Facility:[facility] Start: 10-12-2024 Emergency department patient visit Ynes Trinidad Facility:[facility] Start: 10-12-2024 End: 10-15-2024 Evaluation and management of inpatient Kenny Matute [facility] Start: 09-29-2024 End: 10-07-2024 Clinisync Result [...] patient visit Jimmy Hay MD Work Phone: [facility] Comment on above: Exacerbation of [...] Facili ty:[facility]1 Start: 10-11-2022 End: 10-12-2022 ambulatory JIMMY HAY [facility] Start: 10-11-2022 End: 10-11-2022 Subsequent hospital visit by physician Jimmy Hay MD Work Phone: [facility] Start: 09-19-2022 End: 09-19-[address] DAVID WASHINGTON . Facility:[facility]1 Start: 09-17-2022 End: 09-17-2022 ambulatory ROBERT GOLDBERG . Facility:[facility] Start: 09-11-2022 End: 09-12-[address] DOCTOR CLIFTON Facility:[facility] Start: 09-06-2022 End: 09-07-2022 ambulatory JIMMY HAY [facility] Start: 09-06-2022 End: 09-06-2022 Subsequent hospital visit by physician Jimmy Hay MD Work Phone: [facility] Start: 07-31-2022 End: 08-01-[address] DAVID WASHINGTON . Facility:[facility] Start: 07-14-2022 End: 07-14-[address] DAVID WASHINGTON . Facility:[facility] Start: 07-14-2022 End: 07-15-[address] DAVID WASHINGTON . Facility:[facility] Start: 06-14-2022 End: 07-09-[address] DAVID WASHINGTON . Facility:[facility] Start: 06-13-2022 Encounter for genera l adult medical examination without abnormal findings DR MIKEL IBARRA [facility] Start: 06-12-2022 End: 06-13-[address] MIKEL IBARRA Facility:[facility]1 Start: 06-12-2022 End: 06-13-2022 Encounter for general adult medical examination without abnormal findings DR MIKEL IBARRA Facility:[facility] Start: 04-04-2022 End: 04-05-[address] DAVID WASHINGTON . Facility:[facility] Start: 03-30-2022 End: 03-30-[address] DAVID WASHINGTON . Facility:[facility] Procedures Date Procedure Procedure Detail Performing Clinician Start: 11-21-2024 [facility] PREG QUANT HCG Core y Padmini DO Work Phone: Start: 11-19-2024 [facility] PREG QUANT HCG Core y Padmini DO Work Phone: Start: 09-29-2024 IGP,APTIMA HPV,AGE GDLN David Padmini DO Work Phone: Start: 09-29-2024 Microscopic observat ion [Identifier] in Cervix by Cyto stain Mikel Ibarra MD Work Phone: Start: 05-10-2024 LACTATE, SEPSIS Dylon Rondon [employer] PA-C Work Phone: Start: 05-09-2024 LACTATE, SEPSIS Dylon Rondon [employer] PA-C Work Phone: Start: 05-09-2024 Radiologic exam ches t single view Dylon Rondon Allyson [employer] Work Phone: Start: 05-09-2024 COVID-19 & INFLUENZA COMBO ([facility]) Dylon Rondon [employer] Work Phone: Start: 05-09-2024 End: 05-09-2024 Comprehensive metabolic panel Dylon Rondon [employer] Work Phone: Start: 05-09-2024 End: 05-09-2024 Ecg routine ecg w/least 12 lds w/i&r Talib Dixon MD Work Phone: Start: 05-09-2024 End: 05-09-2024 Urine test visual color cmprsn meths Dylon Rondon [employer] Work Phone: Start: 10-11-2022 Blood count reticulo cyte automated Jono Steward MD Work Phone: Start: 09-19-2022 Microscopic observat ion [Identifier] in Cervix by Cyto stain Mikel Ibarra MD Work Phone: Appendectomy Kenny fong [place] [facility] Lalito Matute Plan of Treatment Date Care Activity Detail Author Start: 09-29-2029 Screening for malign ant neoplasm of cervix [facility] Start: 09-20-2027 Screening for malign ant neoplasm of cervix [facility] Start: 10-05-2025 End: 10-05-2025 Patient encounter procedure [facility] Start: 05-05-2025 End: 05-05-2025 Patient encounter procedure 05/05/2025 2:45 PM EDT Office Visit [facility] [address] [place] [address] Mikel Ibarra MD [address] [place] [phone] [facility] Start: 03-09-2025 Influenza vaccination [facility] Start: 02-03-2025 End: 02-03-2025 Patient encounter procedure [facility] Comment on above: Arrived Start: 10-30-2024 End: 10-30-2024 Patient encounter procedure 10/30/2024 2:45 PM EDT Office Visit [facility] [address] [place] [phone] Mikel Ibarra MD [address] [place] [phone] Arrived [facility] Comment on above: Arrived Start: 09-29-2024 End: 09-29-2024 Patient encounter procedure 09/29/2024 10:00 AM EDT Office Visit [facility] [address] [place] [address] David Washington, [address] [place] [address] [facility] Start: 09-04-2024 End: 09-04-2024 Patient encounter procedure 09/04/2024 1:30 PM EST Office Visit [facility] [address] [place] [phone] Mikel Ibarra MD [address] [place] [phone] [facility] Start: 08-04-2024 End: 08-04-2024 Patient encounter procedure [facility] Comment on above: Arrived Start: 04-30-2024 End: 04-30-2024 Patient encounter procedure 04/30/2024 8:30 AM EDT Office Visit [facility] [address] [place] [address] Mikel Ibarra MD [address] [place] [phone] Arrived [facility] Comment on above: Arrived Start: 03-17-2024 End: 03-17-2024 Patient encounter procedure 03/17/2024 8:15 AM EDT Office Visit [facility] [address] [place] [phone] Mikel Ibarra MD [address] [place] [phone] [facility] Start: 03-09-2024 COVID-19 Vaccine ( season) COVID-19 Vaccine ( season) [facility] Start: 03-09-2024 Influenza vaccination Influenza Vacc ine (#1) [facility] Start: 02-07-2024 Influenza vaccination Flu vaccine (# 1) [facility] Start: 02-06-2023 Influenza vaccination Flu vacc ine (Season Ended) [facility] Start: 2022 Screening for malign ant neoplasm of cervix [facility] Start: 10-25-2022 End: 10-25-2022 Patient encounter procedure 10/25/2022 Routine Perinatology [facility] Start: 09-27-2022 End: 09-27-2022 Patient encounter procedure 09/27/2022 Routine Perinatology [facility] Start: 02-06-2022 Influenza vaccination Flu vaccine (# 1) [facility] Start: 01-27-2022 Hemoglobin A1c measurement A1C test (Diabetic or Prediabetic) [facility] Start: 2013 Screening for malign ant neoplasm of cervix Pap smear [facility] Start: 12-05-2011 DTaP/Tdap/Td vaccine (1 - Tdap) DTaP/Tdap/Td vaccine (1 - Tdap) [facility] Start: 12-05-2011 Hepatitis B vaccine (1 of 3 - 19+ 3-dose series) Hepatitis B vaccine (1 of 3 - 19+ 3-dose series) [facility] Start: 2010 Hepatitis C screening Hepatitis C sc reen [facility] Start: 12-05-2007 HIV screening HIV screen [facility] Start: 2005 Varicella vaccine (1 of 2 - 13+ 2-dose series) Varicella vaccine (1 of 2 - 13+ 2-dose series) [facility] Start: 2004 Depression Screen Depression Screen [facility] Start: 1993 Varicella vaccine (1 of 2 - 2-dose childhood series) Varicella vaccine (1 of 2 - 2-dose childhood series) [facility] Start: 06-06-1993 COVID-19 Vaccine (#1) COVID-19 Vacci ne (#1) [facility] End: 09-06-2022 Alpha Fetoprotein, Maternal [facility] Work Phone: Comment on above: Once for 1 Occurrenc es starting 09/06/2022 until 09/06/2022 EKG 12 Lead [facility] Work Phone: End: 09-06-2022 Lead, Blood [facility] Work Phone: Comment on above: Once for 1 Occurrenc es starting 09/06/2022 until 09/06/2022 End: 10-11-2022 Lead, Blood [facility] Work Phone: Comment on above: Once for 1 Occurrenc es starting 10/11/2022 until 10/11/2022 End: 10-11-2022 Path Review, Smear [facility] Work Phone: Comment on above: Once for 1 Occurrenc es starting 10/11/2022 until 10/11/2022 End: 09-06-2022 Prothrombin Gene Mutation M[facility] [employer] Phone: Comment on above: Once for 1 Occurrenc es starting 09/06/2022 until 09/06/2022 End: 09-06-2022 Signature Microarray MUKESH [employer] Phone: Comment on above: Once for 1 Occurrenc es starting 09/06/2022 until 09/06/2022 Payers Date Payer Category Payer Private Health Insurance [id number] 2024 [place] [id number] 2024-Present [address] [address] [place] [address] [id number] .[id number] 2023 Medicaid [id number] .[id number] 2022 Medicaid [id number] 1.2.840.755599.1.13.239.2 .7.3.017018.315 2022 Medicaid [id number] 1.2.840.707985.1.13.239.2 .7.3.229456.315 1992 Unknown [id number] 2.16.840.1.492270.3.579.2 .593 1992 Unknown [id number] 2.16.840.1.212277.3.579.2 .593 1992 Unknown [id number] 2.16.840.1.144459.3.579.2 .593 1992 Unknown [id number] 2.16.840.1.771849.3.579.2 .593 1992 Unknown [id number] 2.16.840.1.236220.3.579.2 .593 1992 Unknown [id number] 2.16.840.1.443772.3.579.2 .593 1992 Unknown [id number] 2.16.840.1.544669.3.579.2 .593 1992 Unknown [id number] 2.16.840.1.189506.3.579.2 .593 1992 Unknown [id number] 2.16.840.1.085923.3.579.2 .593 1992 Unknown [id number] 2.16.840.1.243506.3.579.2 .593 1992 Unknown [id number] 2.16.840.1.576261.3.579.2 .593 1992 Unknown [id number] 2.16840.1.357530.3.579.2 .593 1992 Unknown [id number] 2.16.840.1.073047.3.579.2 .593 1992 Unknown [id number] 2.16.840.1.376311.3.579.2 .593 1992 Unknown [id number] 2.16.840.1.384967.3.579.2 .593 1992 Unknown [id number] 2.16.840.1.070092.3.579.2 .175 1992 Unknown [id number] 2.16840.1.075950.3.579.2 .175 1992 Unknown [id number] 2.16.840.1.309252.3.579.2 .727 1992 Unknown [id number] 2.16.840.1.620604.3.579.2 .727 1992 Unknown [id number] 2.16.840.1.623469.3.579.2 .727 1992 Unknown [id number] 2.16.840.1.201962.3.579.2 .727 1992 Unknown [id number] 2.16.840.1.319277.3.579.2 .727 1992 Unknown [id number] 2.16.840.1.500677.3.579.2 .9 1992 Unknown [id number] 2.16.840.1.496932.3.579.2 .1258 1992 Unknown [id number] 2.16.840.1.051035.3.579.2 .9 1992 Unknown [id number] 2.16.840.1.167630.3.579.2 .9 1992 Unknown [id number] 2.16.840.1.849655.3.579.2 .9 1992 Unknown [id number] 2.16.840.1.300689.3.579.2 .1259 1959 Private Health Insurance [id number] 1.2.840.601698.1.13.239.2 .7.3.296454.315 1959 Self-pay Unknown [id number] 2.16.840.1.118413.3.579.2 .593 Social History Date Type Detail Facility Start: 09-06-2022 End: 04-16-2025 Tobacco smoking status [facility] Never smoked tobacco [employer] Phone: Start: 09-06-2022 End: 12-16-2022 Tobacco use and exposure Smokeless tobacco non-user [facility]: Start: 09-06-2022 End: 02-03-2025 Alcohol intake Lifetime non-drinker (finding) [facility] Phone: Start: 05-24-2022 [facility] [employer] Phone: Start: 1990 Sex Assigned At Not on file B ON [employer] Phone: Start: 11-09-2023 End: 10-30-2024 History of Social function [facility] Start: 11-09-2023 End: 10-30-2024 Social connection and isolation panel [facility] Do you belong to any clubs or organizations such as religious groups, unions, fraternal or athletic groups, or [...] got money to buy more. Sometimes true [facility] Start: 1990 Sex assigned at Female [facility] Start: 11-23-2022 Gender identity Identifies as female gender (finding) [facility] Start: 11-23-2022 Sexual orientation Heterosexual (fin ding) [facility] Tobacco smoking status [facility] Start: 10-20-2009 Sex Female (finding) [facility] Sex Male (finding) [facility] Start: 1990 Sex Assigned At Male F [facility] NEGATED: Highlighted rowStart: NINF History of tobacco use Passive smoker [facility] Work Phone: Functional Status Date Assessment Result Facility 10-12-2024 Functional Status No [facility] 10-12-2024 Functional Status [facility] Clinical Notes 03-25-2024 to 02-03-2025 Aleksandra Comer LPN - 02/03/2025 10:20 AM Nancy Ibarra MD - 10/30/2024 3:23 PM [...] nursing note reviewed. Exam conducted with a sales and marketing coordinator present. Vitals: Estimated body mass index is [...] David Washington DO documented in this encounter [facility] 10-30-2024 History of Presen t illness Narrative Associated Problem(s): Pyelonephritis Recent infection and improved. Increase water intake. Associated Problem(s): Mild persistent asthma without complication (CMS/[facility]) Symptoms controlled with pulmicort. Use albuterol PRN. Associated Problem(s): Major depressive disorder, recurrent episode, moderate (CMS/HCC) Mood doing well without medication and monitor. Associated Problem(s): Generalized anxiety disorder (CMS/HCC) Mood doing well without medication and monitor. Images from the original note were not included. Subjective Patient ID: Dilma Santa is a 33 y.o. female who presents for Follow-up ([facility] f/up sepsis ). Hospital follow up from [...] 90 mcg/act inhaler documented in this encounter [facility] 10-21-2024 Note Microbiology PROCEDURE: Blood Culture Charcoal [R1] SOURCE: Blood BODY SITE: Arm L COLLECTED DATE/TIME: 10/14/2024 11:13 EDT RECEIVED DATE/TIME: 10/14/2024 11:46 EDT START DATE/TIME: 10/14/2024 11:46 EDT FREE TEXT SOURCE: Rere LOW MD, MD, Rere FINAL REPORTS Final Report [] Verified Date/Time: 10/21/2024 12:00 EDT No growth at 7 days. Performing Locations R1: This test was performed at: [facility], [address] [place] [address], [facility] , , [facility] Comment on above: Performed By: #### 1 [id number] #### [facility] [address] [place] [address] 10-21-2024 Note Microbiology PROCEDURE: Blood Culture Charcoal [R1] SOURCE: Blood BODY SITE: Arm R COLLECTED DATE/TIME: 10/14/2024 11:05 EDT RECEIVED DATE/TIME: 10/14/2024 11:47 EDT START DATE/TIME: 10/14/2024 11:47 EDT FREE TEXT SOURCE: LEE ANN PACK, Rere LOW MD, Rere FINAL REPORTS Final Report [] Verified Date/Time: 10/21/2024 12:00 EDT No growth at 7 days. Performing Locations R1: This test was performed at: [facility], [address] [place] [address], [address] [place] [address], [facility] Comment on above: Performed By: #### 1 [id number] #### [facility] [address] [place] [id number] 10-16-2024 Note Microbiology PROCEDURE: Blood Culture Charcoal [R1] SOURCE: Blood BODY SITE: Arm L COLLECTED DATE/TIME: 10/12/2024 12:23 EDT RECEIVED DATE/TIME: 10/12/2024 12:34 EDT START DATE/TIME: 10/12/2024 12:34 EDT FREE TEXT SOURCE: Bing Aviles PA-C. Bing Aviles PA-C. FINAL REPORTS Final Report [] Verified Date/Time: [...] Locations R1: This test was performed at: [facility], [address] [place] [address], [id number] , [place], [facility] Comment on above: Performed By: #### 1 [id number] #### [facility] [address] [place] [id number] 10-15-2024 Hospital Discharg e instructions Patient Education [...] Follow these instructions at home: Medicines Take iayo-rya-hqvhysr and prescription medicines only as told by [...] provider. Document Revised: 05/28/2023 Document Reviewed: 05/28/2023 [employer] Patient Education 2023 [id number]. Follow Up Care 10/12/2024 08:51:20 With:MIKEL IBARRA Address: [address] [place] [address] Business (1) When:10/30/2024 13:30:00 [facility] 10-15-2024 Evaluation + Plan note Extrac susan from: Title:Discharge Note Author:LEE ANN PACK, Mbanefo D ate:10/15/24 Stable Discharge To, Anticipated II - [...] Within 5 to [address] [place] [address] Business (1) Additional Instructions: Call for followup appointment Sepsis, Diagnosis, Adult Extracted from: Title:APSO Note Author:Rere LOW MD [...] Treated with IV Fluid and antibiotics Ordered: [facility] Care/Day Moderate 35 Minutes [id number] 2. Bacteremia (R78.81: Bacteremia) E. coli bacteremia treating with IV ceftriaxone. Staphylococcus coagulase-negative bacteremia likely secondary to skin contaminant -treating with IV vancomycin pending repeat culture results. Ordered: vancomycin, PHARMACY TO DOSE, Injection, IV, As Directed, Routine, Start date 10/14/24 10:35:00 EDT [facility] Care/Day Moderate 35 Minutes [id number] 3. Acute pyelonephritis (N10: Acute pyelonephritis) Acute left E. coli pyelonephritis present on admission. Treating with IV ceftriaxone. Will transition to oral cefdinir at discharge. Ordered: [facility] Care/Day Moderate 35 Minutes [id number] 4. Leukocytosis (D72.829: Elevated white blood cell count, unspecified) Secondary to above. WBC trended down. Ordered: [facility] Care/Day Moderate 35 Minutes [id number] 5. N&V (nausea and vomiting) (R11.2: Nausea with vomiting, unspecified) Secondary to above. Resolved. Ordered: [facility] Care/Day Moderate 35 Minutes [id number] 6. Obese (E66.9: Obesity, unspecified) Recommend therapeutic lifestyle modification changes. Disposition: Home soon pending blood culture result. I discussed the diagnosis and plan of care with the patient at the bedside. Moderate level of MDM based on addressing above issues. This documentation was transcribed using voice recognition software. Several attempts were made to ensure accuracy. However inadvertent computerized sonoscope operator errors may be present. Rere Low. Hospitalist. [...] Treating with IV Fluid and antibiotics Ordered: [facility] Care/Day Moderate 35 Minutes [id number] 2. Bacteremia (R78.81: Bacteremia) E. coli bacteremia and gram-positive cocci bacteremia present on admission. Continue on IV ceftriaxone. I added IV vancomycin pending final blood culture result. Repeat blood culture today. Ordered: vancomycin, PHARMACY TO DOSE, Injection, IV, As Directed, Routine, Start date 10/14/24 10:35:00 EDT [facility] Care/Day Moderate 35 Minutes [id number] 3. Acute pyelonephritis (N10: Acute pyelonephritis) Acute left E. Coli pyelonephritis present on admission. Ordered: [facility] Care/Day Moderate 35 Minutes [id number] 4. Leukocytosis (D72.829: Elevated white blood cell count, unspecified) Secondary to above. Treating with antibiotics and IV fluid. Ordered: [facility] Care/Day Moderate 35 Minutes [id number] 5. N&V (nausea and vomiting) (R11.2: Nausea [...] made to ensure accuracy. However inadvertent computerized sonoscope operator errors may be present. Rere Low. Hospitalist. [...] Extracted from: Title:APSO Note Author:LEE ANN PACK, Mbanefo Date: 33-year-old female with hist ory of [...] ordered lactic acid level. Follow cultures. Ordered: [facility] Care/Day Moderate 35 Minutes [id number] 2. Bacteremia (R78.81: Bacteremia) Gram-negative xavier bacteremia secondary to acute pyelonephritis. Treating with IV ceftriaxone. I increased ceftriaxone to 2 g daily. Repeat blood culture in a.m. Ordered: [facility] Care/Day Moderate 35 Minutes [id number] 3. Acute pyelonephritis (N10: Acute pyelonephritis) Acute left pyelonephritis present on admission. Urine culture isolating gram-negative xavier organisms. Ordered: [facility] Care/Day Moderate 35 Minutes [id number] 4. Leukocytosis (D72.829: Elevated white blood cell count, unspecified) Secondary to above. Treating with antibiotics and IV fluid. Ordered: [facility] Care/Day Moderate 35 Minutes 73270 5. N&V (nausea and vomiting) (R11.2: Nausea [...] made to ensure accuracy. However inadvertent computerized sonoscope operator errors may be present. Rere Low. Hospitalist. [...] Qual UA with Cult Rflx Urine Culture [facility] 04-09-2025 NoteDischarge Summary Admission and Discharge Information Admit Date/Time:10/12/2024 13:32 Admitting Physician - Kenny Matute DO Admitting Diagnoses: Discharge Order Date Discharge Patient - Ordered -- 10/15/24 12:07:00 EDT, Home after IV ceftriaxone Discharge Diagnoses 1. Sepsis, 10/13/2024 2. Bacteremia, 10/13/2024 3. Acute pyelonephritis, 10/12/2024 4. Leukocytosis, 10/12/2024 5. N&V (nausea and vomiting), 10/12/2024 6. Obese, 10/14/2024 Procedure History Appendectomy, [place] Te[place] Extraction. Hospital Course 33-year-old female with history of asthma, depression, obesity presented with complaints of left flank pain associated with high-grade fevers of about 4 days duration. She was subsequently admitted to [facility] with sepsis secondary to E. coli bacteremia [...] 5 to [address] [place] [address] Business (1) Additional Instructions: Call for followup appointment Patient Education [facility] Comment: Electronically Signed By: LEE ANN PACK, Mbanefo\.br\Date and Time Signed: 10/15/24 12:11 [id number] NoteProgress Note - Pharmacy Vancomycin Pharmacy to [...] care. Please contact pharmacy if there are questions.[facility]04-09-2025 NoteProgress Note-Physician Assessment/Plan 33-year-old female with history [...] Treated with IV Fluid and antibiotics Ordered: [facility] Care/Day Moderate 35 Minutes 29982 2. Bacteremia (R78.81: Bacteremia) E. coli bacteremia???treating with IV ceftriaxone. Staphylococcus coagulase-negative bacteremia???likely secondary to skin contaminant -treating with IV vancomycin pending repeat culture results. Ordered: vancomycin, PHARMACY TO DOSE, Injection, IV, As Directed, Routine, Start date 10/14/24 10:35:00 EDT [facility] Care/Day Moderate 35 Minutes [id number] 3. Acute pyelonephritis (N10: Acute pyelonephritis) Acute left E. coli pyelonephritis???present on admission. Treating with IV ceftriaxone. Will transition to oral cefdinir at discharge. Ordered: [facility] Care/Day Moderate 35 Minutes [id number] 4. Leukocytosis (D72.829: Elevated white blood cell count, unspecified) Secondary to above. WBC trended down. Ordered: [facility] Care/Day Moderate 35 Minutes 29989 5. N&V (nausea and vomiting) (R11.2: Nausea with vomiting, unspecified) Secondary to above. Resolved. Ordered: [facility] Care/Day Moderate 35 Minutes [id number] 6. Obese (E66.9: Obesity, unspecified) Recommend therapeutic lifestyle modification changes. Disposition: Home soon pending blood culture result. I discussed the diagnosis and plan of care with the patient at the bedside. Moderate level of MDM based on addressing above issues. This documentation was transcribed using voice recognition software. Several attempts were made to ensure accuracy. However inadvertent computerized sonoscope operator errors may be present. Rree Low. Hospitalist. Orders: Sodium Chloride 0.45% intravenous [...] PRN ketorolac 15 m (more content not included)...[facility] CenterComment on above:Result Comment: Electronically Signed By: LEE ANN PACK, Rere\.br\Date and Time Signed: 10/15/24 10:07 [id number] NoteProgress Note-Physician Assessment/Plan 33-year-old female with history [...] Treating with IV Fluid and antibiotics Ordered: [facility] Care/Day Moderate 35 Minutes 18545 2. Bacteremia (R78.81: Bacteremia) E. coli bacteremia and gram-positive cocci bacteremia???present on admission. Continue on IV ceftriaxone. I added IV vancomycin pending final blood culture result. Repeat blood culture today. Ordered: vancomycin, PHARMACY TO DOSE, Injection, IV, As Directed, Routine, Start date 10/14/24 10:35:00 EDT [facility] Care/Day Moderate 35 Minutes 52285 3. Acute pyelonephritis (N10: Acute pyelonephritis) Acute left E. Coli pyelonephritis???present on admission. Ordered: [facility] Care/Day Moderate 35 Minutes 60718 4. Leukocytosis (D72.829: Elevated white blood cell count, unspecified) Secondary to above. Treating with antibiotics and IV fluid. Ordered: [facility] Care/Day Moderate 35 Minutes 19241 5. N&V (nausea and vomiting) (R11.2: Nausea [...] made to ensure accuracy. However inadvertent computerized sonoscope operator errors may be present. Rere Low. Hospitalist. [...] II-XII intact, motor strengt (more content not included)...[facility] CenterComment on above:Result Comment: Electronically Signed By: LEE ANN PACK, Rere\.br\Date and Time Signed: 10/14/24 11:31 [id number] NoteProgress Note - Pharmacy Vancomycin Pharmacy to [...] have any questions, please contact pharmacy at [phone]. Age: 33 Years Allergies: ALLERGIES Weight: Last Documented Weight and Type of Scale Used Last Documented Weight Weight Measured: 103.8 kg (10/13/24 06:00:00) Type of Scale Used Weight Measured Type of Scale: Bed Scale (digital) (10/12/24 17:40:00) Height: Last Documented Height/Length Last Documented Height/Length Height/Length Measured: 165 cm (10/12/24 17:40:00) CrCl: 120 mL/min Labs: No qualifying data available.[facility]04-08-[facility] Note Microbiology PROCEDURE: Blood Culture Charcoal [R1] SOURCE: Blood BODY SITE: Arm R COLLECTED DATE/TIME: 10/12/2024 12:21 EDT RECEIVED DATE/TIME: 10/12/2024 12:33 EDT START DATE/TIME: 10/12/2024 12:33 EDT FREE TEXT SOURCE: right nicci Aviles PA-C, Bing Aviles PA-C, Bing Lemos. FINAL REPORTS Final Report [] Verified Date/Time: 10/14/2024 09:33 EDT Escherichia coli In 2 of 2 blood culture bottles drawn. Isolated from aerobic and anaerobic bottles Preliminary gram stain result of gram negative rods Result called to Dr. Low by [facility] and results read back for confirmation [...] Locations R1: This test was performed at: [facility], [address] [place] [address], [id number] , [place], RmphpyMetrohealth [facility] Heights [facility] CenterComment on above:Performed By: #### [id number] #### [facility] [address] [place] [address] [id number] NoteProgress Note-Physician Assessment/Plan 33-year-old female with history [...] Ordered: [facility] Care/Day Moderate 35 Minutes 58234 2. Bacteremia (R78.81: Bacteremia) Gram-negative xavier bacteremia???secondary to acute pyelonephritis. Treating with IV ceftriaxone. I increased ceftriaxone to 2 g daily. Repeat blood culture in a.m. Ordered: [facility] Care/Day Moderate 35 Minutes 24689 3. Acute pyelonephritis (N10: Acute pyelonephritis) Acute left pyelonephritis???present on admission. Urine culture isolating gram-negative xavier organisms. Ordered: [facility] Care/Day Moderate 35 Minutes 33127 4. Leukocytosis (D72.829: Elevated white blood cell count, unspecified) Secondary to above. Treating with antibiotics and IV fluid. Ordered: [facility] Care/Day Moderate 35 Minutes 92380 5. N&V (nausea and vomiting) (R11.2: Nausea [...] made to ensure accuracy. However inadvertent computerized sonoscope operator errors may be present. Rere Low. Hospitalist. [...] mL -- -- -- Fluid Balance -- 2,203.5 -- Intake (6) Oral Intake mL -- 1,100 -- Sodium Chloride 0.9% mL -- 1,000 -- Sodium Chloride 0.9%, ceftriaxone mL -- 50 -- Sodium Chloride 0.9%, promethazine mL -- 50.5 -- ketorolac mL -- 1 -- ondansetron mL -- 2 -- Total -- 2,203.5 -- Output (0) Counts (0) * This [...] MCV: 79.5 fL Low (more content not included)...[facility] Comment on above:Result Comment: Electronically Signed By: LEE ANN PACK, [employer]\.br\Date and Time Signed: 10/13/24 12:34 [id number] NoteHistory and Physical Basic Information Admit Date/Time:10/12/2024 [...] SOCIAL HISTORY 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 is 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 [employer] No tobacco history Very rare alcohol use [...] Lymph Auto: 11.5 % Low (10/12/24 09:18:00) [place] Auto: 11.7 % (10/12/24 09:18:00) Eos Auto: 0 % (10/12/24 09:18:00) Basophil Auto: 0.5 % (10/12/24 09:18:00) Neutro Absolute: 11.6 E9/L High (10/12/24 09:18:00) Lymph Absolute: 1.8 E9/L (10/12/24 09:18:00) [place] Absolute: 1.8 E9/L High (10/12/24 09:18:00) Eos [...] AST: 17 Int._Unit/L (0 (more content not included)...[facility] Comment on above:Result Comment: Electronically Signed By: Kenny Matute DO\.br\Date and Time Signed: 10/12/24 17:26 [id number] History of Present illness Narrative* Mikel Ibarra [...] (Adipex-P) 37.5 MG tablet documented in this [facility]11-02-2024 Hospital Discharge instructions* Discharge Instructions* Dylon Valadez [...] through Care Everywhere. * Asthma: General Info ([place] Islander) * Nebulizers: General Info ([place]) [facility] Phone: [phone] 206-826610-23-2024 History of Present illness Narrative* Mikel Ibarra [...] minutes at a time. documented in this encounterSelect Specialty [id number] Telephone encounter Note* Telephone Encounter - Mikel Ibarra MD - 03/25/2024 2:20 PM EDT Okay to write letter stating patient needs a second service animal. [facility] [id number] Telephone encounter Note* Telephone Encounter - Mikel [...] like the letter e-mailed to her at [email or web address]. [facility] [id number] Miscellaneous Notes* Telephone Encounter - Mikel Ibarra [...] like the letter e-mailed to her at [email or web address]. [facility]* Diagnosis Urticaria due to [...] 35.9 in adult [facility]* Diagnosis Exacerbation of asthma, unspecified asthma severity, unspecified whether persistent- Primary documented in this [facility] Work Phone: Evaluation note* Diagnosis Obesity (BMI 30-39.9) [facility]* Diagnosis Urticaria due to cold [...] 36.9 in adult [facility]* Diagnosis Urticaria due to cold [...] cold and heat documented in [facility]* Diagnosis Urticaria due to cold [...] follow-up examination documented in this encounter [facility] HealthcareEvaluation noteNo assessment information availableMercy Health St. [facility] Work Phone: Hospital course Narrative No data available for this section [facility] Progress note No data available for this section [facility] Reason for referral (narrative)No reason for referral information availableMercy Health St. [facility] Work Phone: Summary Purpose Family History No Family [...] Found Advance Directives No Advanced Directives Records Found Advance Directive Response Recorded Date/ Time Advance Directives No April 16, 2025 8:50am Chief Complaint and Reason for Visit Chief Complaint Admit Date April 08, 2025 4: 52pm left side of face mass April 16, 2025 2:29pm Additional Source Comments Care Teams (unrecognized sec tion and content) Gamma Operator Relationship Specialty Start Date End Date Jimmy Hay MD [address] [place] [address] PCP - General 01/04/22 Gamma Operator Relationship Specialty Start Date End Date Jimmy Hay MD [address] [place] [address] PCP - General 01/04/22 Gamma Operator Relationship Specialty Start Date End Date Mikel Ibarra MD [address] [place] [phone] PCP - General Family Medicine 09/26/23 Gamma Operator Relationship Specialty Start Date End Date Mikel Ibarra MD [address] [place] [phone] PCP - General Family Medicine 09/26/23 Gamma Operator Relationship Specialty Start Date End Date Jimmy Hay MD [address] [place] [address] PCP - General 01/04/22 Gamma Operator Relationship Specialty Start Date End Date Mikel Ibarra MD [address] [place] [phone] PCP - General Family Medicine 09/26/23 Gamma Operator Relationship Specialty Start Date End Date Mikel Ibarra MD [address] [place] [address] PCP - General Family Medicine 09/26/23 Gamma Operator Relationship Specialty Start Date End Date Mikel Ibarra MD [address] [place] [phone] PCP - General Family Medicine 09/26/23 Gamma Operator Relationship Specialty Start Date End Date Mikel Ibarra MD [address] [place] [address] PCP - General Family Medicine 09/26/23 Gamma Operator Relationship Specialty Start Date End Date Mikel Ibarra MD [address] [place] [address] PCP - General Family Medicine 09/26/23 Gamma Operator Relationship Specialty Start Date End Date Mikel Ibarra MD [address] [place] [address] PCP - General Family Medicine 09/26/23 Gamma Operator Relationship Specialty Start Date End Date Mikel Ibarra MD [address] [place] [address] PCP - General Family Medicine 09/26/23 Gamma Operator Relationship Specialty Start Date End Date Mikel Ibarra MD [address] [place] [address] PCP - General Family Medicine 09/26/23 Gamma Operator Relationship Specialty Start Date End Date Mikel Ibarra MD [address] [place] [address] PCP - General Family Medicine 09/26/23 Team Status: Active Member Role Status Dates Mikel Ibarra MD Primary Care Provider Active Team Status: Active Member Role Status Dates Cesar Mallory MD Attending Provider Active Start: April 08, 2025 Team Status: Inactive Member Role Status Dates Mikel Ibarra MD Primary Care Provider Active S tart: April 16, 2025 End: April 16, 2025 Mikel Ibarra MD Attending Provider Active Star t: April 16, 2025 End: April 16, 2025 INFORMATION SOURCE (unrecogn ized section and content) DATE CREATED AUTHOR 11/17/2022 [facility] DATE CREATED AUTHOR AUTHOR'S ORGANIZ ATION 01/24/2023 [facility] DATE CREATED AUTHOR AUTHOR'S ORGANIZ ATION 10/13/2024 [facility] DATE CREATED AUTHOR AUTHOR'S ORGANIZ ATION 10/14/2024 [facility] DATE CREATED AUTHOR AUTHOR'S ORGANIZ ATION 10/15/2024 [facility] DATE CREATED AUTHOR AUTHOR'S ORGANIZ ATION 10/17/2024 [facility] DATE CREATED AUTHOR AUTHOR'S ORGANIZ ATION 10/18/2024 [facility] DATE CREATED AUTHOR AUTHOR'S ORGANIZ ATION 10/23/2024 [facility] DATE CREATED AUTHOR AUTHOR'S ORGANIZ ATION 02/04/[address] [facility] DATE CREATED AUTHOR AUTHOR'S ORGANIZ ATION 04/23/2025 [facility] Reason for Visit (unrecogniz ed [...] Comments Follow-up 3 m Reason Comments Follow-up [facility] f/up sepsis Reason Comments Infertility Follow-up Ordered [...] at 2218, Initiate RT Bronchodilator Protocol: No 2225 (Given - Provider: Brigette Bates RN) guaiFENesin [...] over 1 Hours, ONCE, On Sun05/09/24 at 8, For 1 dose, Recommended infusion rate not [...] 2349 (Given - Provider: Brigette Bates RN) Goals (unrecognized section and content) Goals may be documented in a n alternate section (unrecognized sect ion and content) No Status [...] BE BASED ON THE PRIMARY CLINICAL RECORDS. [facility] HospitalR[facility]. provides no warranty or guarantee of the accuracy or completeness of information in this document.
--- NOTE | 2025-04-24 08:27 | US_ITS ---
The [address] [address] Patient Name: DILMA DONAHEU MRN: [id number] date: 1990 Sex: F Assigned Patient Location: [place] Current Patient Location: [place] Accession/Order Number: [id number] Exam Date: 04/24/2025 08:28 Report Date: 04/24/2025 08:58 At the request of: GRICELDA IBARRA MD Procedure: US soft tissue head and neck LIMITED ULTRASOUND - LEFT FACE CLINICAL DATA: Enlarging lump in the left cheek region for the past year. COMPARISON: None Real-time ultrasound evaluation of the area of palpable concern was performed. There is a lobulated hypoechoic mass in the area of the parotid gland measuring 4.7 x 2.1 x 2.7 cm in size. There is no clear hilus however enlarged lymph node is in the differential along with benign and malignant neoplasia. US/US soft tissue head and neck IMPRESSION: HYPOECHOIC MASS AT THE SITE OF PALPABLE CONCERN WITHIN THE LEFT PAROTID GLAND. ENT FOLLOW-UP IS RECOMMENDED. Impression dictated by: Aleksandra Vogt M.D. 04/24/2025 8:58 AM Dictation Location: [place] [address] Electronically authenticated by: [id number] Y Date: 04/24/2025 08:58
== END 2025-04-24 08:23 | disposition home or self-care (01) ==
LOC: US 08:22
PROVIDERS: PCP Family Medicine; Visit Provider Family Medicine
DX: Z00.00 Encounter for general adult medical examination without abnormal findings (principal); R22.0 Localized swelling, mass and lump, head
CPT/HCPCS: 76536

== ENCOUNTER 2025-05-01 16:13 | Outpatient (OUT) | payer MEDICAID, SELFPAY ==
--- OUTSIDE RECORDS SUMMARY | 2025-04-24 05:21 | XMS_ITS | Continuity of Care Document ---
Author Organization [facility] Address [address] [place] [address] Phone Care Team Providers Care Operational Assistant Name Role Phone Mikel Osuna MD Primary Care Provider Mikel Osuna MD Attending Provider Cesar Mallory MD Attending Provider Care Teams Patient Care Team Team Status: Active Member Role/Relationship Status Dates Mikel Osuna MD Primary Care Provider Active Visit Care Team Team Status: Inactive Member Role/Relationship Status Dates Mikel Osuna MD Primary Care Provider Active S tart: April 16, 2025 End: April 16, 2025[facility] Tianna Osuna ProviderActiveStart: April 16, 2025 End: April 16, 2025 Visit Care Team Team Status: Active Member Role/Relationship Status Dates Cesar Mallory MD Attending Provider Active Start: April 21, 2025 Patient Care Team Team Status: Active Member Role/Relationship Status Dates Mikel Osuna MD Primary Care Provider Active S tart: April 24, 2025 Tianna Hilliard ProviderActiveStart: April 24, 2025 Chief Complaint and Reason for Visit Chief Complaint Admit Date left side of face mass April 16, 2025 2:29pm BH April 21, 2025 3 :45pm Referral Order April 24, 2025 9 :19am Reason for Visit Admit Date Mass of left submandibular region Octobe r 2024 2:29pm Reason for Referral Type Reason(s) Provider Provider Contact Information P rovider Address Start Date Mass of left submandibular region R22.0 - Localized swelling, mass and lump, headR22.0 - Localized swelling, mass and lump, headHILARY H MARY [facility]RAL [facility]- [facility] [place], 2025 Allergies, Adverse Reactions, Alerts Allergen Type Severity Reaction Last Updated Verified Status cefdinir Allergy Unknown Itching April 16, 2025 3:40pm Yes Active Social History Smoking Status Status Start Date End Date Date of Observa tion Never smoked tobacco (finding) April 16, 2025 3:09pm Observation Status Observation Response Date of Response Legal Sex Male (finding) Sex Assigned At BirthMaleMay 1990 Problems Active Problems Problem Diagnosis/Recorded Date Onset Date Stat us Primary insomnia April 16, 2025 3:15pm Unknown Active Generalized anxiety disorder April 16, 2025 3:15pm Unknown Active Mild persistent asthma witho ut complication April 16, 2025 3:15pm Unknown Active Mass of left submandibular region April 16, 2025 3: 37pm Unknown Active Urticaria due to cold and heat April 16, 2025 3:15p m Unknown Active Major depressive disorder, r ecurrent episode, moderate April 16, 2025 3:15pm Unknown Active Class 2 obesity due to exces s calories without serious comorbidity with body mass index (BMI) of 36.0 to 36.9 in adult April 16, 2025 3:14pm Unknown Active Inactive/Resolved Problems Problem Diagnosis/Recorded Date Onset Date Stat us Pyelonephritis April 16, 2025 3:15pm Unknown R esolved Medications Medication Status Dose Units Route Directions Qty Days Refills S tart Date Stop Date End Date Reason(s) Instructions Adherence Fexofenadine (Allergy Relief (Fexofenadine)) 180 mg tablet A ctive 180 MG PO Daily April 16, 2025 12:00amUnknownMontelukast 10 mg vwzbejWmswcw34TPYPZlzdaMyicxvm 9th, 2025 12:00amUnknownAlbuterol Sulfate 90 mcg/actuation HFA aerosol inhaler Cisqyn1NIINOUCNSPFLDOFnzqp 4 hours as neededOct2024 12:00amUnknown Budesonide 90 mcg/actuation aerosol powdr breath cnhknghtjMygulm0HWBSIQJSHOHXG Twice dailyOct2024 12:00amUnknownDoxycycline Hyclate 100 mg tablet Ocjzss509HPMKXcsiq lrset416Isrsqcm 9th, 2025 12:00amUnknown Relevant Diagnostic Tests and/or Laboratory Data Laboratory Results Test Collection Date/Time Result Date/Time Result Interpretation Reference Range Result Comment Performing Site Basophils # (Auto) April 16, 2025 4:03pm April 4:03pm 0.1 10 3/uL 0.0-0.1Erythrocyte Sedimentation RateOct2024 4:03pmOct2024 4:03pm37 mm/hrAbove high normal<=20Estimated Average GlucoseOct2024 4:03pmOct2024 4:86ov131 mg/dLThyroid Stimulating Hormone 3rd Gen April 16, 2025 4:03pm1.630 u[iU]/mL0.358-3.740C-Reactive Protein, QuantitativeOct2024 4:03pmOct2024 4:03pm<0.50 mg/dL<=0.50 Anion GapApril 16, 2025 4:03pmOctober 2024 4:03pm12.0Basophils (%) (Auto)April 16, 2025 4:03pmOctober 2024 4:03pm0.5 %0.2-2.0Hemoglobin A1c April 16, 2025 4:03pmOct2024 4:03pm5.7 %4.5-6.2ADA RECOMMENDED LIMIT 4.0 - 6.0ADA THERAPEUTIC TARGET < 7.0ACTION SUGGESTED> 7.0Albumin/Globulin RatioOct2024 4:03pmOctober 2024 4:03pm0.9Eosinophils # (Auto) April 16, 2025 4:03pmOctober 2024 4:03pm0.2 10 3/uL0.0-0.7AlbuminOct2024 4:03pmOctober 2024 4:03pm4.0 g/dL3.4-5.0Eosinophils (%) (Auto) April 16, 2025 4:03pmOctober 2024 4:03pm1.7 %0.9-7.0Alkaline Phosphatase April 16, 2025 4:03pmOct2024 4:03pm94 U/I49-168FngvrxfykvQpvcbti 9th, 2025 4:03pmOctober 2024 4:03pm37.8 %36.0-48.0Alanine Aminotransferase (ALT/SGPT)April 16, 2025 4:03pmOctober 2024 4:03pm23 U/Y83-41Aicpmvkxbx April 16, 2025 4:03pmOct2024 4:03pm12.4 g/dL12.0-16.0Aspartate Amino Transf (AST/SGOT)April 16, 2025 4:03pmOct2024 4:03pm15 U/L 15-37Immature Granulocyte # (Auto)April 16, 2025 4:03pmOctober 2024 4:03pm0.03 10 3/uL0.00-0.03BUN/Creatinine RatioOct2024 4:03pmOct2024 4:03pm8.8Immature Granulocyte % (Auto)April 16, 2025 4:03pmOctober 2024 4:03pm0.3 %0.0-0.5Blood Urea NitrogenOct2024 4:03pmOctober 2024 4:03pm7.0 mg/dL7.0-18.0Lymphocytes # (Auto)April 16, 2025 4:03pm April 16, 2025 4:03pm3.4 10 3/uL1.2-3.8Calcium LevelOct2024 4:03pm April 16, 2025 4:03pm9.4 mg/dL8.5-10.1Lymphocytes (%) (Auto)April 16, 2025 4:03pmOctober 2024 4:03pm32.2 %20.5-60.0Chloride LevelOct2024 4:03pmOctober 2024 4:14cj695 mmol/C85-660Omzn Corpuscular HemoglobinOct2024 4:03pmOct2024 4:03pm27.6 pg26.7-34.0Carbon Dioxide Level April 16, 2025 4:03pmOct2024 4:03pm27.6 mmol/L21.0-32.0Mean Corpuscular Hemoglobin ConcentOct2024 4:03pmOctober 2024 4:03pm 32.8 g/dL29.9-35.2CreatinineOct2024 4:03pmOctober 2024 4:03pm0.80 mg/dL0.55-1.02Mean Corpuscular VolumeOct2024 4:03pmOctober 2024 4:03pm84.2 fL81.0-99.0Estimated GFR ()April 16, 2025 4:03pm April 16, 2025 4:03pm>60>=60 mL/min/1.73m 2Monocytes # (Auto)April 16, 2025 4:03pmOctober 2024 4:03pm0.6 10 3/uL0.3-0.8Estimated GFR (Non- AmericanApril 16, 2025 4:03pmOctober 2024 4:03pm>60>=60 mL/min/1.73m 2 Monocytes (%) (Auto)April 16, 2025 4:03pmOctober 2024 4:03pm6.0 % 1.7-12.0GlobulinApril 16, 2025 4:03pmOctober 2024 4:03pm4.5 g/dLMean Platelet VolumeOct2024 4:03pmOctober 2024 4:03pm10.3 fL9.5-13.5 Glucose LevelOct2024 4:03pmOctober 2024 4:03pm91 mg/fU54-342 Neutrophils # (Auto)April 16, 2025 4:03pmOctober 2024 4:03pm6.3 10 3/uL 1.4-6.5Potassium LevelApril 16, 2025 4:03pmOctober 2024 4:03pm3.6 mmol/L 3.5-5.1Neutrophils (%) (Auto)April 16, 2025 4:03pmOct2024 4:03pm 59.3 %43.0-75.0Sodium LevelOct2024 4:03pmOct2024 4:47bh022 mmol/G629-997Fkvizggf CountOct2024 4:03pmApril 16, 2025 4:44su688 10 3/lC671-697Glvaf BilirubinOct2024 4:03pmOct2024 4:03pm0.6 mg/dL0.2-1.0Red Blood CountOct2024 4:03pmOct2024 4:03pm4.49 10 6/uL4.20-5.40Total ProteinOct2024 4:03pmOct2024 4:03pm 8.5 g/dLAbove high normal6.4-8.2Red Cell Distribution WidthApril 16, 2025 4:03pmOct2024 4:03pm14.7 %11.0-15.0Corrected White Blood CountApril 16, 2025 4:03pmApril 16, 2025 4:03pm10.6 10 3/uL4.0-11.0 Vital Signs Vital Reading Result Reference Range Collection Date/Time Height 66 [in_i] April 16, 2025 3:92tsOmiljt68.36 kgApril 16, 2025 3:10pmBody Temperature 98.2 [degF]97.6-99.0April 16, 2025 3:10pmHeart Rate51 /peh96-396OivkmtaApril 16, 2025 3:10pmRespiratory rate16 /wnn01-91BbwqlgqApril 16, 2025 3:10pmOxygen saturation by Pulse ehjhhpqz60 %95-100April 16, 2025 3:10pmBP Xxpshbsf179 mm[Hg]100-140 April 16, 2025 3:10pmBP Jqiujxrsy61 mm[Hg]60-100April 16, 2025 3:10pmBMI (Body Mass Index)33.9 kg/u2IdwdsotApril 16, 2025 3:10pm Advance Directives Advance Directive Response Recorded Date/ Time Advance Directives No April 16, 2025 8:50am Encounters Encounter Location(s) Arrival/Admit Date Discharge/Departure Date Discharge/Departure Disposition Provider(s) Departed Physician/ Provider Office Visit -[facility] Family Medicine Devin April 16, 2025 2:29pm April 16, 2025 3:36pm Discharged to home care or self care (routine discharge) Mikel Osuna MD Registered Recurring -[facility] April 21, 2025 3 :45pm Cesar Mallory MDNon-patient / [facility]ppl[facility] [employer] April 24, 2025 9:19amMaclaus Osuna MD Recent Diagnosis Onset Date Admit Date Mass of left submandibular region Unknown April 16, 2025 2:29pm Assessments Diagnosis Onset Date Resolution Status Admit Date Mass of left submandibular region acuteOctober 2024 2:29pm Plan of Treatment Author [facility] 20[facility] 5:17pmDeveloped painful lump and unclear etiology. Start antibiotic for possible abscess. Check labs and US. Likely will need referral to ENT. Future Tests Future scheduled test information is unavailable Pending Tests Test Name Ordered Date Scheduled Date US thyroid April 16, 2025 3:37pm Future Visits Future appointment information is unavailable Future Procedures Future procedure information is unavailable Future Medications Future medication information is unavailable Patient Instructions Patient instructions are unavailable Hospital Discharge Instructions Ambulatory Orders* Referral to ENT Time Frame: 04/24/25, Location: None Selected
--- OUTSIDE RECORDS SUMMARY | 2025-05-01 16:17 | XMS_ITS | Clinical Summary ---
Author Organization [facility] Address [address] [place] [address] Care Team Providers Care Still Operator Gin Name Role Phone Mikel Osuna MD Primary Care Provider [phone] Allergies Active AllergyReactionsCriticalityNoted MqtbEwcychcqTauttzkaHrytjuh20/24/2025 Medications MedicationSigDispense QuantityRefillsLast FilledStart DateEnd DateStatus albuterol HFA 90 mcg/act inhaler Indications:Mild asthma without complication, unspecified whether persistent (HCC)Inhale 2 puffs every 4 (four) hours if needed for wheezing 18 g 5Active budesonide (Pulmicort Flexhaler) 90 MCG/ACT inhaler Indications:Mild persistent asthma without complication (HCC)Inhale 2 puffs in the morning and 2 puffs before bedtime. Rinse mouth with water after use to reduce aftertaste and incidence of candidiasis. Do not swallow. 1 each 5Active fexofenadine (Silvia) 180 MG tablet Indications:Urticaria due to cold and heatTake 1 tablet (180 mg) by mouth Daily as needed (Allergies) 30 tablet 5Active montelukast (Singulair) 10 MG tablet Indications:Urticaria due to cold and heatTake 1 tablet (10 mg) by mouth Daily 30 tablet 5Active Active Problems ProblemNoted DateDiagnosed ApqdTcnebjxikcxvaa65/24/2025 Assessment & Plan (10/30/2024 3:23 PM EDT): Recent infection and improved. Increase water intake. Generalized anxiety nblomxbp24/10/2024 Assessment & Plan (10/30/2024 3:23 PM EDT): Mood doing well without medication and monitor. Assessment & Plan (08/04/2024 1:42 PM EST): Mood worse and resume medication. Warned will take 2-3 weeks to notice improvement in mood. Assessment & Plan (04/30/2024 9:24 AM EDT): Mood unchanged and increase trileptal. Continue celexa. Warned will take 2-3 weeks to notice improvement in mood. Assessment & Plan (12/05/2023 3:00 PM EDT): Mood unchanged and increase celexa. Add lamictal. Warned will take 2-3 weeks to notice improvement in mood. Assessment & Plan (11/16/2023 10:13 AM EDT): Symptoms worse without celexa and resume. Warned will take 2-3 weeks to notice improvement in mood. Major depressive disorder, recurrent episode, rxjaszpr14/10/2024 Assessment & Plan (10/30/2024 3:23 PM EDT): Mood doing well without medication and monitor. Assessment & Plan (08/04/2024 1:42 PM EST): Mood worse and resume medication. Warned will take 2-3 weeks to notice improvement in mood. Assessment & Plan (04/30/2024 9:24 AM EDT): Mood unchanged and increase trileptal. Continue celexa. Warned will take 2-3 weeks to notice improvement in mood. Assessment & Plan (12/05/2023 3:00 PM EDT): Mood unchanged and increase celexa. Add lamictal. Warned will take 2-3 weeks to notice improvement in mood. Assessment & Plan (11/16/2023 10:13 AM EDT): Symptoms worse without celexa and resume. Warned will take 2-3 weeks to notice improvement in mood. Urticaria due to cold and heat11/16/2023 Assessment & Plan (12/05/2023 3:00 PM EDT): Symptoms improved and continue medication. Assessment & Plan (11/16/2023 10:14 AM EDT): Frequent hives and start daily singulair and silvia. Start pepcid daily and use benadryl PRN. Use steroid cream PRN. If no improvement can refer to allergy and immunology. Class 2 obesity due to excess calories without serious comorbidity with body mass index (BMI) of 36.0 to 36.9 in adult11/16/2023 Assessment & Plan (08/04/2024 1:42 PM EST): Patient overweight and difficult time losing weight. [...] month. OARRS reviewed. Continue medications as prescribed. Assessment & Plan (04/30/2024 9:24 AM EDT): Discussed proper diet and regular aerobic exercise. Recommend Weight Watchers and need to limit calories and smaller portions. Need to increase activity and regular aerobic exercise several days a week for 30 minutes at a time. Assessment & Plan (02/15/2024 9:45 AM EDT): Patient doing well with adipex and lost 34 pounds in 3 months. Tolerating well with only mild dry mouth. Continue with dietary changes and less calories. Need to limit snacking and smaller portions. Continue healthier choices. Need regular aerobic exercise 30 minutes at a time 5-6 days a week. Refill for another month. OARRS reviewed. Continue meds as prescribed. If develop new or worsening sympto ms contact office. Assessment & Plan (12/05/2023 3:00 PM EDT): Patient doing well with adipex and lost 23 pounds in first month. Tolerating well with only mild dry mouth. Continue with dietary changes and less calories. Need to limit snacking and smaller portions. Continue healthier choices. Need regular aerobic exercise 30 minutes at a time 5-6 days a week. Refill for second month. OARRS reviewed. Continue meds as prescribed. If develop new or worsening symptoms contact office. Assessment & Plan (11/16/2023 10:14 AM EDT): Patient overweight and difficult time losing weight. [...] month. OARRS reviewed. Continue medications as prescribed. Primary vchkjaba88/26/2024 Assessment & Plan (08/04/2024 1:43 PM EST): Not sleeping well and resume trazodone. Assessment & Plan (04/30/2024 9:25 AM EDT): Sleeping okay with trazodone and continue. Assessment & Plan (12/05/2023 3:00 PM EDT): Sleeping well with restoril and continue. Assessment & Plan (11/16/2023 10:14 AM EDT): Sleeping well with restoril and continue. Mild persistent asthma without dtsqfmxttukb73/30/2023 Assessment & Plan (10/30/2024 3:23 PM EDT): Symptoms controlled with pulmicort. Use albuterol PRN. Assessment & Plan (08/04/2024 1:43 PM EST): Increased SOB and start pulmicort. Use albuterol PRN. Resolved Problems ProblemNoted DateDiagnosed DateResolved DateAcute sinusitis, unspecified /04/2024 Encounters DateTypeDepartmentCare XurpVxvklczabac55/29/2025 10:20 AM EDTOffice Visit [facility] [address] [place] [phone] David Washington DO Encounter for fertility planning; Follow-up exam02/03/2025amboo flowsheet [facility] [address] [place] [address] David Washington DO from Last 3 Months Family History Medical HistoryRelationNameCommentsHypertensionMotherRelationNameStatusComments MotherAlive Social History Tobacco UseTypesPacks/DayYears UsedDateSmoking Tobacco: NeverSmokeless Tobacco: Never Tobacco Cessation:Counseling Given: Not Answered Alcohol UseStandard Drinks/WeekCommentsNever0 (1 standard drink = 0.6 oz pure alcohol)Social Connection and Isolation PanelAnswerDate RecordedIn a typical week, how many times do you talk on the phone with family, friends, or neighbors?More than three times a week11/09/2023How often do you get together with friends or relatives?Once a week11/09/2023How often do you attend congregational or spiritism services?Never11/09/2023o you belong to any clubs or organizations such as congregational groups, unions, fraternal or athletic groups, or school groups?No 11/09/2023How often do you attend meetings of the clubs or organizations you belong to?Patient facoxrrj74/03/2024re you , , , , never , or living with a partner?Klhhmeo7411/09/2023UDIT-C AnswerDate RecordedQ1: How often do you have a drink containing alcohol?Monthly or less11/09/2023Q2: How many drinks containing alcohol do you have on a typical day when you are drinking?1 or Q3: How often do you have six or more drinks on one occasion?Never11/09/2023Overall Financial Resource Strain (CARDIA) AnswerDate RecordedHow hard is it for you to pay for the very basics like food, housing, medical care, and heating?Somewhat hard11/09/2023Finlifepoint hospitals [place] of Occupational Health - Occupational Stress QuestionnaireAnswerDate RecordedDo you feel stress - tense, restless, nervous, or anxious, or unable to sleep at night because yourmind is troubled all the time - these days?Very much11/09/2023 Exercise Vital SignAnswerDate RecordedOn average, how many days per week do you engage in moderate to strenuous exercise (like a brisk walk)?0 days11/09/2023On average, how many minutes do you engage in exercise at this level?0 min 11/09/2023Hunger Vital SignAnswerDate RecordedWithin the past 12 months, you worried that your food would run out before you got the money to buymore. Sometimes true11/09/2023Within the past 12 months, the food you bought just didn't last and you didn't have money to get more.Sometimes true11/09/2023 PRAPARE - TransportationAnswerDate RecordedIn the past 12 months, has lack of transportation kept you from medical appointments or from getting medications? Patient irbqhubd26/03/2024In the past 12 months, has lack of transportation kept you from meetings, work, or from getting things needed for daily living?Patient mokctsmi52/03/2024Housing Stability Vital SignAnswerDate RecordedIn the last 12 months, was there a time when you were not able to pay the mortgage or rent on time?No11/09/2023In the last 12 months, how many places have you lived?1 11/09/2023In the last 12 months, was there a time when you did not have a steady place to sleep or slept in [place] (including now)?Patient jpcexppn42/03/2024 CommentsUnknownSex and Gender InformationValueDate RecordedSex Assigned at OhlqlDzgtzy96/18/2023 9:06 AM EDTLegal FlbFuydst44/15/2023 10:13 PM EDTGender HwjxkidaHbvksf95/18/2023 9:06 AM EDTSexual TattwziqzanDoounhqj24/18/2023 9:06 AM EDT Last Filed Vital Signs Vital SignReadingTime TakenCommentsBlood Iggbgimu247/7407 10:54 AM EDT Kgmtc2578 2:57 PM WLTWgapeuvtrqq89.6 ??C (97.8 ??F)10/30/2024 2:57 PM EDTRespiratory Rtev135910/30/2024 2:57 PM EDTOxygen Uskwxindon25%10/30/2024 2:57 PM EDTInhaled Oxygen Concentration--Dshgfv85.1 kg (203 lb)02/03/2025 10:54 AM FIARxltmr226.1 cm (5' 5 )10/30/2024 2:57 PM EDTBody Mass Index33.78010/30/2024 2:57 PM EDT Plan of Treatment DateTypeDepartmentCare Team (Latest Contact Info)Xobluzbwllb29/30/2026 11:00 AM EDTOffice Visit [facility] [address] [place] [phone] David Washington DO [address] [place] [address] Insurance Care Teams Team MemberRelationshipSpecialtyStart DateEnd Date Mikel Osuna MD [address] [place] [address] PCP - [facility]09/26/23
--- OUTSIDE RECORDS SUMMARY | 2025-05-01 16:17 | XMS_ITS | Patient Health Record ---
Author Organization [facility] in [place] Address [address] [place] [address] Care Team Providers Care Practice Professional Name Role Phone Mikel Osuna MD Primary Care Provider Unavailab le Allergies No Known Allergies Reason For Referral No Information Medications Medication SIG (Take, Route, Frequency, Duration) Notes Start Date End Date Status Symbicort 160-4.5 MCG/ACT 2 puffs Inhala tion Twice a day; Duration: 30 days Rinse after use ActiveAlbuterol Sulfate HFA 108 (90 Base) MCG/ACT2 puffs as needed for SOB Inhalation every 4 hrs; Duration: 90 daysActiveAlbuterol Sulfate (2.5 MG/3ML) 0.083%3 mL as needed Inhalation every 6 hrsActiveSingulair 10 MG1 tablet Orally Once a day; Duration: 30 daysActiveVitamin C 500 MG1 tablet Orally Once a day ActiveSpiriva Respimat 1.25 MCG/ACT2 puffs Inhalation Once a day3Active Problems Problem Type SNOMED Code ICD Code Onset Dates Problem Status W/U Status Risk Notes Problem Uncomplicated mild p ersistent asthma (293852791) Mild persistent asthma, uncomplicated (J45.30) ActiveconfirmedPrior treatment: Symbicort, Advair (nausea)ProblemGestation period, 24 weeks (505948857)24 weeks gestation of (Z3A.24)Active confirmedProblemLong-term current use of inhaled steroid (224432276)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 (Z79.51)ActiveconfirmedProblemMorbid obesity (835887983)Morbid obesity (E66.01)ActiveconfirmedProblemMild persistent asthma (347689277)Mild persistent asthma (J45.30)ActiveconfirmedProblemBody mass index 40+ - severely obese (251626351)Body mass index [BMI] 40.0-44.9, adult (Z68.41) Activeconfirmed Plan Of Treatment No Information Insurance Providers Payer Name Payer Address Payer Phone Subscriber Number Group Number Insured Name Patient Relationship to Insured Coverage Start Date Coverage End Date [facility] [address] [address] [place] [phone] [id number] Merle Santa Self - patient is the insured [place] MED[place] [address] [address] [place] [phone] [id number], ChelsieSelf - patient is the insured Medical (General) History Medical History History ICD Code Mild persistent asthma, uncomplicated J4 5.30 Major depressive disorder, recurrent, mo derate F33.1 Generalized anxiety disorder F41.1 Mucus pooling in larynx J38.7 Surgical History Surgery Date(Month/Year) dilatation and curettage appendectomyHospitalization History Reason Date(Month/Year) Asthma Exacerbation 09/17/2022
--- OUTSIDE RECORDS SUMMARY | 2025-05-01 16:18 | XMS_ITS | CCD ---
Author Organization [facility] CliniSyvt Care Team Providers Care Purification Director Name Role Phone Jimmy Hay MD Primary Care Provider DR MIKEL IBARRA Primary Care Unavailable PADMINI ., DR BEAR [...] REQUEST, NONE LISTED Primary Care Unavaila ble ZIEBER, [...] ., DR BEAR Attending Unavailable REQUEST, DR KELLEY LISTED Primary Care [...] Care Unavailable JIMMY HAY Primary Care Unavailable PERREJI, JONO C Referring Unavailable JIMMY HAY Primary Care Unavailable PERREJI, JONO C Referring Unavailable Mikel Ibarra MD Primary Care Provider Jimmy Hay MD Primary Care Provider [phone] Ynes Trinidad Attending Unavailable Kenny Matute Attending Unavailable Kenny Matute Admitting Unavailable MIKEL IBARRA Primary Care Physician Rere LOW Attending Unavailable Kenny Matute Admitting Unavailable MIKEL IBARRA Attending Unavailable DAVID WASHINGTON Attending Unavailable NADEREAjit, MIKEL Attending Unavailable NADMIKEL LINDQUIST Attending Unavailable NADAMEENA, MIKEL Attending Unavailable DAVID WASHINGTON Attending Unavailable Mohamud PACK, Cesar Attending Provider Mikel Ibarra MD Primary Care Provider Mikel Ibarra MD Attending Provider Cesar Mallory Attending Unavailab Cesar Anderson Admitting Unavailab Cesar Anderson MD Attending Provider Allergies Allergy ClassificationReported Allergen(s)Allergy TypeDate of OnsetReaction(s) Facility (7 sources)cefdinirDrug Igrnata28-93-8374QkizpboUJHE [facility] (1 source)cefdinirDrug Aebvaic31-13-1446CgkogdkkiGuernsey Memorial Hospital Repository Medications Current Medications MedicationDrug Class(es)DatesSig (Normalized)Sig (Original)[id number] 200 actuat albuterol 0.09 mg/actuat metered dose inhaler (20 sources)beta2-Adrenergic AgonistStart: 82-94-5062vofw 1 puff(s) by inhalation every four hours as neededStart: 06-30-2024 End: 71-95-1484qcni 2 puff(s) by inhalation every four hours for wheezing albuterol HFA 90 mcg/act inhaler Indications: Mild asthma without complication, unspecified whetherpersistent (HCC) Inhale 2 puffs every 4 (four) hours if needed for wheezing 18 g 3 10/30/2024 ActiveStart: .5 mg, Nebulization, ONCE, 1 dose, On Sun05/09/24 at 2218, Initiate RT Bronchodilator Protocol: NoStart: 25-98-6621gnlhhqmfl (PROVENTIL) (2.5 MG/3ML) 0.083% nebulizer solution 09/18/2022 ActiveStart: 39-80-0444yxnvdraws (PROVENTIL) (2.5 MG/3ML) 0.083% nebulizer solution inhale contents of 1 vial ( 3 milliliters ) in nebulizer by mouth... (REFER TO PRESCRIPTION NOTES). 0 09/18/2022 ActiveStart: 09-68-3405lruxhqeso sulfate HFA (PROVENTIL;VENTOLIN;PROAIR) 108 (90 Base) MCG/ACT inhaler 07/31/2022 ActiveStart: 16-94-7399ivod 2 puff(s) by mouth every four hoursalbuterol sulfate HFA (PROVENTIL;VENTOLIN;PROAIR) 108 (90 Base) MCG/ACT inhaler inhale 2 puffs by mouth and INTO THE LUNGS every 4 hours if needed 0 07/31/2022 Activetake 2 puff(s) by inhalation every four hours for wheezingalbuterol HFA 90 mcg/act inhaler Inhale 2 puffs every 4 (four) hours if needed for wheezing. ActiveAspirin (2 sources)Platelet Aggregation Inhibitor, Nonsteroidal Anti-inflammatory Drug BABY ASPIRIN PO Take by mouth ActiveBABY ASPIRIN PO Take by mouth 0 Nwudul54 actuat budesonide 0.09 mg/actuat dry powder inhaler (15 sources)CorticosteroidStart: 05-44-7335Ebzkv: 08-04-2024 End: 44-00-1367tkik 2 puff(s) by mouth in the morningbudesonide (Pulmicort Flexhaler) 90 MCG/ACT inhaler Indications: Mild persistent asthma without comp lication (HCC) Inhale 2 puffs in the morning and 2 puffs before bedtime. Rinse mouth with water after use to reduce aftertaste and incidence of candidiasis. Do not swallow. 1 each 3 10/30/2024 Fevzbe46 actuat budesonide 0.16 mg/actuat / formoterol fumarate 0.0045 mg/actuat metered dose inhaler (9 sources)Corticosteroid, beta2-Adrenergic AgonistStart: 10-23-2022 End: 70-34-2295Fzqcvchmm 160-4.5 MCG/ACT inhaler 10/23/2022 08/04/2024 Discontinueddoxycycline hyclate 100 mg oral tablet (1 source)Tetracycline-class DrugStart: 28-84-8992jdzu 1 tablet by mouth twice dailyfexofenadine hydrochloride 180 mg oral tablet (20 sources)Histamine-1 Receptor AntagonistStart: 89-50-7805gkou 1 tablet by mouth once dailyStart: 11-16-2023 End: 15-56-1063ukxx 1 tablet by mouth once daily as neededfexofenadine (Megan) 180 MG tablet Indications: Urticaria due to cold and heat Take 1 tablet (180mg) by mouth Daily as needed (Allergies) 30 tablet 5 10/30/2024 Uccxmo25 actuat fluticasone propionate 0.25 mg/actuat / salmeterol 0.05 mg/actuat dry powder inhaler (2 sources)Corticosteroid, beta2-Adrenergic AgonistStart: 51-98-0134ltly 1 puff(s) by mouth twice dailyADVAIR DISKUS 250-50 MCG/ACT AEPB diskus inhaler inhale 1 puff by mouth and INTO THE LUNGS twice a day 0 08/21/2022 Active montelukast 10 mg oral tablet (20 sources)Leukotriene Receptor AntagonistStart: 54-91-3204qawp 1 tablet by mouth once dailyStart: 11-16-2023 End: 90-17-5407ltfd 1 tablet by mouth once dailymontelukast (Singulair) 10 MG tablet Indications: Urticaria due to cold and heat Take 1 tablet (10 mg) by mouth Daily 30 tablet 5 10/30/2024 ActivepredniSONE 20 mg oral tablet (1 source)Start: 05-10-2024 End: 95-26-3359swnl 1 tablet by mouth twice dailypredniSONE (DELTASONE) 20 MG tablet Take 1 tablet by mouth 2 times daily for 5 days 10 tablet 05/10/2024 05/15/2024 ActivePrenatal ML-Yvt-DR-Collyer-3 ( GUMMIES/DHA & FA) 0.4-32.5 MG CHEW (3 sources) FW-Rhx-LE-Collyer-3 ( GUMMIES/DHA & FA) 0.4-32.5 MG CHEW Gummies/DHA & FA ActivePrenatal LQ-Fnd-RT-Collyer-3 ( GUMMIES/DHA & FA) 0.4-32.5 MG CHEW Gummies/DHA & FA 0 Active Progesterone (2 sources)ProgesteroneProgesterone [address] 200 mg vaginally 2 times daily 0 Activesertraline 50 mg oral tablet (2 sources)Serotonin Reuptake Inhibitortake 1 tablet by mouth once daily sertraline (ZOLOFT) 50 MG tablet Take 50 mg by mouth daily 0 Active Completed/Discontinued Medications MedicationDrug Class(es)DatesSig (Normalized)Sig (Original)albuterol 0.833 mg/ml / ipratropium bromide 0.167 mg/ml inhalation solution (1 source)Anticholinergic, beta2-Adrenergic AgonistStart: 05-09-2024 End: 96-36-9254wajt 1 dose by inhalation once1 Dose, Inhalation, ONCE, 1 dose, On Sun05/09/24 at 2128, Initiate RT Bronchodilator Protocol: No, STATcalcium chloride 0.0014 meq/ml / potassium chloride 0.004 meq/ml / sodium chloride 0.103 meq/ml / sodium lactate 0.028 meq/ml injectable solution (1 source)Start: 05-09-2024 End: ,000 mL, IntraVENous, at 495.9 mL/hr, Administer over 121 Minutes, ONCE, On Sun05/09/24 at 2249, For 1 dose, STATcitalopram 20 mg oral tablet (15 sources)Serotonin Reuptake InhibitorStart: 08-04-2024 End: 98-48-7616yguo 1 tablet by mouth once dailycitalopram (CeleXA) 20 MG tablet Indications: Major depressive disorder, recurrent episode, moderate (CMS/HCC) Take 1 tablet (20 mg) by mouth Daily 30 tablet 3 08/04/2024 10/30/2024 DiscontinuedStart: 12-05-2023 End: 04-60-2556xehv 1 tablet by mouth once dailycitalopram (CeleXA) 40 MG tablet Indications: Major depressive disorder, recurrent episode, moderate (CMS/HCC) Take 1 tablet (40 mg) by mouth Daily 30 tablet 5 12/05/2023 08/04/2024 Discontinued (Reorder)Start: 29-65-5177ymoo 1 tablet by mouth once daily in the morningcitalopram (CELEXA) 20 MG tablet Take 1 tablet by mouth every morning 01/02/2023 Activefamotidine 40 mg oral tablet (12 sources)Histamine-2 Receptor AntagonistStart: 11-16-2023 End: 88-02-7537mumd 1 tablet by mouth once dailyfamotidine (Pepcid) 40 MG tablet Indications: Urticaria due to cold and heat Take 1 tablet (40 mg) by mouth Daily 30 tablet 5 11/16/2023 10/30/2024 DiscontinuedguaiFENesin 20 mg/ml oral solution (1 source)Start: 05-09-2024 End: 38-72-7774krvn 1 dose by mouth yzbi893 mg, Oral, ONCE, 1 dose, On Sun05/09/24 at 825500 ml magnesium sulfate 40 mg/ml injection (1 source)Start: 05-09-2024 End: ,000 mg, IntraVENous, at 50 mL/hr, Administer over 1 Hours, ONCE, On Sun05/09/24 at 2128, For 1 dose, Recommended infusion rate not to exceed 1,000 mg (milligrams) per hour.methylPREDNISolone 125 mg injection (1 source)CorticosteroidStart: 05-09-2024 End: 13-76-8300378 mg, IntraVENous, ONCE, On Sun05/09/24 at 2128, For 1 dose2 ml ondansetron 2 mg/ml injection (4 sources)Serotonin-3 Receptor AntagonistStart: 05-09-2024 End: mg, IntraVENous, ONCE, 1 dose, On Sun05/09/24 at 2340, STAT Start: 20-09-9673hqrf 1 tablet by mouth every four to six hoursondansetron (ZOFRAN) 4 MG tablet take 1 tablet by mouth every 4 to 6 hours if needed 0 08/26/2022 ActiveOXcarbazepine 150 mg oral tablet (16 sources)Anti-epileptic AgentStart: 08-04-2024 End: 52-93-1603mdjw 1 tablet by mouth in the morningOXcarbazepine (Trileptal) 150 MG tablet Indications: Major depressive disorder, recurrent episode, m oderate (CMS/HCC) Take 1 tablet (150 mg) by mouth in the morning and 1 tablet (150 mg) before bedtime. 60 tablet 5 08/04/2024 10/30/2024 DiscontinuedStart: 04-30-2024 End: 96-86-3973nmud 1 tablet by mouth in the morningOXcarbazepine (Trileptal) 300 MG tablet Indications: Major depressive disorder, recurrent episode, m oderate (CMS/HCC) Take 1 tablet (300 mg) by mouth in the morning and 1 tablet (300 mg) before bedtime. 60 tablet 5 04/30/2024 08/04/2024 Discontinued (Reorder)Start: 02-15-2024 End: 79-62-5202yfyg 1 tablet by mouth in the morningOXcarbazepine (Trileptal) 150 MG tablet Indications: Major depressive disorder, recurrent episode, m oderate (CMS/HCC) Take 1 tablet (150 mg) by mouth in the morning and 1 tablet (150 mg) before bedtime. 60 tablet 3 02/15/2024 04/30/2024 Discontinued (Reorder)phentermine hydrochloride 37.5 mg oral tablet (11 sources)Sympathomimetic Amine AnorecticStart: 08-04-2024 End: 99-00-0632emos 36-36.9 tablets by mouth before mealtimephentermine (Adipex- P) 37.5 MG tablet Indications: Class 2 obesity due to excess calories without se rious comorbidity with body mass index (BMI) of 36.0 to 36.9 in adult Take 1 tablet (37.5 mg) by mouth in the morning. Take before meals. 30 tablet 08/04/2024 10/30/2024 DiscontinuedStart: 02-15-2024 End: 86-94-3997xtzp 1 tablet by mouth once daily in the morningphentermine (Adipex-P) 37.5 MG tablet Indications: Obesity (BMI 30-39.9) TAKE 1 TABLET BY MOUTH EVERY MORNING BEFORE FIRST MEAL OF THE DAY 30 tablet 03/12/2024 04/11/2024 ActivetraZODone hydrochloride 50 mg oral tablet (14 sources)Serotonin Reuptake InhibitorStart: 02-15-2024 End: 12-63-3005qsjv 1 tablet by mouth at bedtimetraZODone (Desyrel) 50 MG tablet Indications: Primary insomnia Take 1 tablet (50 mg) by mouth at bedtime 30 tablet 3 08/04/2024 10/30/2024 Discontinuedtriamcinolone acetonide 5 mg/ml topical cream (12 sources)CorticosteroidStart: 07-14-2024 End: 64-52-3774xwcrrvuwmcafn (Kenalog) 0.5 % cream Indications: Urticaria due to cold and heat Apply topically 3 (three) times a day 60 g 2 07/14/2024 10/30/2024 DiscontinuedStart: 97-55-1375ilntneitfpawe (Kenalog) 0.5 % cream Indications: Urticaria due to cold and heat Apply topically 3 (three) times a day 60 g 2 11/16/2023 Active Problems Active Problems Problem ClassificationProblemDateDocumented DateEpisodic/ChronicAbdominal pain (1 source)Pelvic and perineal pain; Translations: [PELVIC AND PERINEAL PAIN] Onset: 92-96-5965MjmwakrrKljqnhks reactions (20 sources)Urticaria due to cold and heat; Translations: [Urticaria due to cold and heat]Onset: 731189-88-6284GurtvybzGyaxjfb disorders (20 sources)Generalized anxiety disorder; Translations: [Generalized anxiety disorder]Onset: 371690-23-5911FzxvbalKjehzr (20 sources)Unspecified asthma with (acute) exacerbation; Translations: [Uncomplicated asthma]Onset: 509695-84-1141UxwvpdqAthjzpwvy infection; unspecified site (1 source)Bacteremia; Translations: [Bacteremia]Onset: 28-96-6362Ovvjirjt Contraceptive and procreative management (4 sources)Patient encounter status; Translations: [Encounter for other procreative management]24-62-4341NhpnejzzCcvqkmoe mellitus without complication (8 sources)Other abnormal glucose; Translations: [Impaired glucose tolerance (oral)]Onset: 89-05-5733LkincrtsYyzcuqbq of white blood cells (1 source)Leukocytosis; Translations: [Elevated white blood cell count, unspecified]Onset: 22-99-3041VudvmmsDpshdh infertility (4 sources)Female infertility, unspecified; Translations: [FEMALE INFERTILITY UNSPECIFIED]Onset: 92-97-2375RoefevsIzynwcroirrep and screening for infectious disease (2 sources)Encounter for screening for human papillomavirus (HPV); Translations: [Contact with and (suspected)exposure to infections with a predominantly sexual mode of transmission]Onset: 25-50-6667BdjnlwcyOlwumgast disorders (5 sources)Irregular menstruation, unspecified; Translations: [IRREGULAR MENSTRUATION UNSPECIFIED]Onset: 14-81-8829AvlofroKzfatejtsfumt mental health disorders (20 sources)Primary insomnia; Translations: [Primary insomnia]Onset: 10-02-2023 90-05-7246MhyvpkaCanw disorders (20 sources)Moderate recurrent major depression; Translations: [Major depressive disorder, recurrent, moderate]Onset: 836268-18-9227WpytmtuPwlumx and vomiting (1 source)Nausea and vomiting; Translations: [Nausea with vomiting, unspecified] Onset: 20-56-4078OoiogblqQcbtcdcjigo chest pain (3 sources)Chest pain, unspecified; Translations: [CHEST PAIN UNSPECIFIED]Onset: 03-16-0009GjtnqmkvXxfmk aftercare (1 source)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 term 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 registered nurse (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 of aspirin; Translations: [RESIDENTIAL CURRENT USE OF ASPIRIN]Onset: 82-44-2144YlkcilzwCdvqz aftercare (1 source)Other 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 (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; Translations: [OTH SHOW WORKER CURRENT DRUG THERAPY]Onset: 35-05-5459DhnuyvioVxdia complications of (4 sources)Other specified related conditions, second trimester; Translations: [OTH SPEC PREG RELATED COND 2ND TRI]Onset: 64-29-6240RintewauTkihw complications of (1 source)Diseases of the respiratory system complicating , second trimester; Translations: [DISEASES RESP SYS COMP PREG 2ND TRI]Onset: 09-19-2022 EpisodicOther female genital disorders (1 source)Other specified noninflammatory disorders of vagina; Translations: [OTH SPEC NONINFLAMMATORY D/O VAGINA]Onset: 31-75-5079MypozpgqHfjpz nutritional; endocrine; and metabolic disorders (4 sources)Body mass index 30+ - obesity; Translations: [Obesity, unspecified] Onset: 600789-37-6050GphkdrmEvduy nutritional; endocrine; and metabolic disorders (20 sources)Obesity caused by energy imbalance; Translations: [Class 2 obesity due to excess calories without serious comorbidity with body mass index (BMI) of 35.0 to 35.9 in adult]Onset: 649185-24-3052OzmwmhfFckqi nutritional; endocrine; and metabolic disorders (1 source)Obesity; Translations: [Obesity, unspecified]Onset: 83-59-6969Qerqbgm Other screening for suspected conditions (not mental disorders or infectious disease) (4 sources)Encounter for screening for malignant neoplasm of cervix; Translations: [ENC SCREENING MALIG NEOPLASM CERV]Onset: 88-03-9721YeiowiqvRfcou skin disorders (3 sources)Mass of submandibular region; Translations: [Localized swelling, mass and lump, head]EpisodicResidual codes; unclassified (1 source)22 weeks gestation of ; Translations: [22 WEEKS GESTATION OF ]Onset: 67-29-5391VhwpzgqxRyywgjnm codes; unclassified (1 source)23 weeks gestation of ; Translations: [23 WEEKS GESTATION OF ]Onset: 04-31-8488VfqesgqaStrqkzwi codes; unclassified (1 source)19 weeks gestation of ; Translations: [19 WEEKS GESTATION OF ]Onset: 65-69-0546XfrsrshhAkkufeuo codes; unclassified (1 source)Family history of other specified conditions; Translations: [FAMILY HX OTHER SPEC CONDITIONS]Onset: 67-20-6847WyieywkfBguxbxplgg (except in labor) (2 sources)Sepsis; Translations: [Sepsis, unspecified organism]Onset: 10-12-2024 EpisodicUnclassified (1 source)CONTACT W/AND (SUSP) EXPOS COVID-19; Translations: [CONTACT W/AND (SUSP) EXPOS COVID-19]Onset: 59-16-0642Anjubocxubcc (1 source)None (qualifier value)53-75-4912Fgsblnvgysxg (2 sources)R22.0 - Localized swelling, mass and lump, headUrinary tract infections (12 sources)Acute pyelonephritis; Translations: [Acute pyelonephritis]Onset: 77-78-8664Nggwnanb Past or Other Problems Problem ClassificationProblemDateDocumented DateEpisodic/ChronicOther complications of (2 sources)Supervision of other high risk pregnancies, second trimester; Translations: [Supervision of other high risk pregnancies, second trimester] Onset: 64-15-9768HymbtbgmJwpbu and delivery including normal (14 sources)Encounter for supervision of normal , unspecified, second trimester; Translations: [Encounter for supervision of normal first , second trimester]Onset: 85-15-2169IohidxjwBzrmi upper respiratory infections (18 sources)Acute upper respiratory infection, unspecified; Translations: [Acute sinusitis]Onset: 09-19-2022 Resolved: 912563-54-1785HsgalhrwEprriszy codes; unclassified (2 sources)Contact with and (suspected) exposure to lead; Translations: [Contact with and (suspected) exposureto lead]Onset: 45-28-5404Jamcscjs Results Test NameValueInterpretationReference RangeFacilityBasophils Auto (Bld) [#/Vol] Ordered By: Mikel Ibarra on 06-86-4244Dcufbagxs (Bld) [#/Vol]0.1 10 3/uL0.0-0.1 [facility] HospitalBasophils/100 WBC Auto (Bld)Ordered By: Mikel Ibarra on 68-89-7044Uzemqqvrr/100 WBC (Bld)0.5 %0.2-2.0[facility] HospitalEosinophils/100 WBC Auto (Bld)Ordered By: Mikel Ibarra on 12-64-8098Edjtvfflxgh/100 WBC (Bld)1.7 %0.9-7.0[facility] Erythrocyte distribution width Auto (RBC) [Ratio]Ordered By: Mikel Ibarra on 53-88-5539Rynjyqtibmn distribution width (RBC) [Ratio]14.7 %11.0-15.0[facility] HospitalGlobulin Calc (S) [Mass/Vol]Ordered By: Mikel Ibarra on 66-95-8717Uhuxwlcr (S) [Mass/Vol]4.5 g/dLGuernsey Memorial Hospital Glomerular filtration rate (GFR) estimation in non- AmericanOrdered By: Mikel Ibarra on 25-67-4693IAD/1.73 sq M.predicted among non-blacks MDRD (S/P/Bld) [Vol rate/Area]mL/min/{1.73_m2}>=60 mL/min/1.73m 2FClinton Memorial HospitalGlucose mean value [Mass/volume] in Blood Estimated from glycated hemoglobinOrdered By: Mikel Ibarra on 74-09-5767Hdufnjn glucose Estimated from glycated hemoglobin (Bld) [Mass/Vol]117 mg/dLGuernsey Memorial Hospital Hematocrit Auto (Bld) [Volume fraction]Ordered By: Mikel Ibarra on 04-16-2025 Hematocrit (Bld) [Volume fraction]37.8 %36.0-48.0[facility] HospitalHemoglobin A1c percentageOrdered By: Mikel Ibarra on 27-44-7846BsA6k (Bld) [Mass fraction]5.7 %4.5-6.2FClinton Memorial HospitalComment on above:ADA RECOMMENDED LIMIT 4.0 - 6.0ADA THERAPEUTIC TARGET < 7.0ACTION SUGGESTED> 7.0 Hemoglobin [Mass/volume] in BloodOrdered By: Mikel Ibarra on 04-16-2025 Hemoglobin (Bld) [Mass/Vol]12.4 g/dL12.0-16.0[facility] Laboratory - Chemistry and Chemistry - challengeOrdered By: Mikel Ibarra on 11-85-3531Mjduhet [Mass/Vol]4.0 g/dL3.4-5.0[facility] HospitalALP [Catalytic activity/Vol]94 U/I10-536McentsjxgGuernsey Memorial HospitalALT [Catalytic activity/Vol]23 U/N88-73ZiruuvtmgGuernsey Memorial HospitalAST [Catalytic activity/Vol]15 U/G10-11XiuvkmaewGuernsey Memorial HospitalBilirubin [Mass/Vol]0.6 mg/dL0.2-1.0[facility] HospitalCalcium [Mass/Vol]9.4 mg/dL8.5-10.1FClinton Memorial HospitalChloride [Moles/Vol]104 mmol/L 98-107[facility] HospitalCO2 [Moles/Vol]27.6 mmol/L21.0-32.0 [facility] HospitalCreatinine [Mass/Vol]0.80 mg/dL0.55-1.02 [facility] HospitalGFR/1.73 sq M.predicted MDRD (S/P/Bld) [Vol rate/Area]mL/min/{1.73_m2}>=60 mL/min/1.73m 2FClinton Memorial Hospital Glucose [Mass/Vol]91 mg/bI85-271BnvukxszzGuernsey Memorial HospitalPotassium [Moles/Vol]3.6 mmol/L3.5-5.1FClinton Memorial HospitalProtein [Mass/Vol] 8.5 g/dLHigh6.4-8.2FSumma Health Barberton Campusodium [Moles/Vol]140 mmol/L 136-145Gu[facility] HospitalTSH Qn1.630 m[IU]/L0.358-3.740[facility] HospitalUrea nitrogen [Mass/Vol]7.0 mg/dL7.0-18.0[facility] HospitalUrea nitrogen/Creatinine [Mass ratio]8.8 mg/mgGuernsey Memorial HospitalLaboratory - Hematology and Cell countsOrdered By: Mikel Ibarra on 52-87-2148XDA (Bld) [Velocity]37 mm/hHigh<=20[facility] HospitalImmature granulocytes/100 WBC (Bld)0.3 %0.0-0.5FClinton Memorial HospitalLeukocytes [#/volume] corrected for nucleated erythrocytes in Blood by Automated counOrdered By: Mikel Ibarra on 19-26-2739POW corrected for nucl RBC Auto (Bld) [#/Vol]10.6 10 3/uL4.0-11.0[facility] Lymphocytes Auto (Bld) [#/Vol]Ordered By: Mikel Ibarra on 73-95-1509Rhkgspgopti (Bld) [#/Vol]3.4 10 3/uL1.2-3.8[facility] HospitalLymphocytes/100 WBC Auto (Bld)Ordered By: Mikel Ibarra on 77-93-4821Omggzeeyqms/100 WBC (Bld) 32.2 %20.5-60.0[facility] HospitalH Auto (RBC) [Entitic mass] Ordered By: Mikel Ibarra on 30-75-9222QDI (RBC) [Entitic mass]27.6 pg26.7-34.0 [facility] HospitalMCHC Auto (RBC) [Mass/Vol]Ordered By: Mikel Ibarra on 39-56-1845CYTL (RBC) [Mass/Vol]32.8 g/dL29.9-35.2FClinton Memorial HospitalMCV Auto (RBC) [Entitic vol]Ordered By: Mikel Ibarra on 04-16-2025 MCV (RBC) [Entitic vol]84.2 fL81.0-99.0[facility] Monocytes Auto (Bld) [#/Vol]Ordered By: Mikel Ibarra on 87-57-5416Qfvijzpps (Bld) [#/Vol]0.6 10 3/uL0.3-0.8[facility] HospitalMonocytes/100 WBC Auto (Bld)Ordered By: Mikel Ibarra on 57-10-3580Nxlqqbfah/100 WBC (Bld)6.0 % 1.7-12.0[facility] HospitalNeutrophils Auto (Bld) [#/Vol]Ordered By: Mikel Ibarra on 66-49-9729Lygsccqoztz (Bld) [#/Vol]6.3 10 3/uL1.4-6.5 [facility] HospitalNeutrophils/100 WBC Auto (Bld)Ordered By: Mikel Ibarra on 46-50-1476Rbjuysyacbf/100 WBC (Bld)59.3 %43.0-75.0[facility] HospitalNo Panel InformationOrdered By: Mikel Ibarra on 40-59-9684Z- Reactive Protein, Quantitative<0.50 mg/dL<=0.50[facility] Eosinophils # (Auto)0.2 10 3/uL0.0-0.7FClinton Memorial HospitalImmature Granulocyte # (Auto)0.03 10 3/uL0.00-0.03[facility] Platelet mean volume Auto (Bld) [Entitic vol]Ordered By: Mikel Ibarra on 34-60-4491Qidfnoal mean volume (Bld) [Entitic vol]10.3 fL9.5-13.5FClinton Memorial HospitalPlatelets Auto (Bld) [#/Vol]Ordered By: Mikel Ibarra on 31-25-5869Mgaashwxn (Bld) [#/Vol]357 10 3/oU789-589KsroqwhyqGuernsey Memorial HospitalRBC Auto (Bld) [#/Vol]Ordered By: Mikel Ibarra on 53-61-8721MZU (Bld) [#/Vol]4.49 10 6/uL4.20-5.40[facility] Willard Hospitalerum or plasma albumin/globulin mass ratioOrdered By: Mikel Ibarra on 04-16-2025 Albumin/Globulin [Mass ratio]0.9 {ratio}[facility] Hospitalerum or plasma anion gap determinationOrdered By: Mikel Ibarra on 87-66-9371Mceab gap [Moles/Vol]12.0 mmol/LFClinton Memorial HospitalTBH PREG QUANT HCGon 99-53-7158ARM QUANTITATIVE<1mIU/mLNOMS HealthcareComment on above:5-50 0.2-1 WEEK 50-500 1-2 WEEKS 100-5,000 2-3 WEEKS 500-10,000 3-4 WEEKS 1,000-50,000 4-5 WEEKS 10,000-100,000 5-6 WEEKS 15,000-200,000 6-8 WEEKS 10,000-100,000 2-3 MONTHS CLINISYNCNOMS HealthcareTB PREG QUANT HCGon 88-78-3273APX QUANTITATIVE<1mIU/mL NOMS HealthcareComment on above:5-50 0.2-1 WEEK 50-500 1-2 WEEKS 100-5,000 2-3 WEEKS 500-10,000 3-4 WEEKS 1,000-50,000 4-5 WEEKS 10,000-100,000 5-6 WEEKS 15,000-200,000 6-8 WEEKS 10,000-100,000 2-3 MONTHS CLINISYNCNOSC HealthcareDischarge Note-Nursingon 86-58-2385Hgqzriqlk Note-NursingDischarge Note-Nursing DILMA KAUR :1990 Visit Date:10/12/2024 Inpatient [...] medications multivitamin, (Classic ) Procedure History Appendectomy, [place] Teeth Extraction. Discharge Vitals Temperature (Axillary) 36.7 [...] Up Appointments after Discharge Follow Up with IMKEL IBARRA When: 10/30/2024 01:30 PM EDT Where: [address] [place] [address] Business (1) Medications What How Much When Why Instructions Next Dose New acetaminophen (acetaminophen 325 mg Tab) 2 Tablets By Mouth Every 6 hours as needed for Pain Asneeded, after 4:00 PM New cefdinir (cefdinir 300 mg Cap) 1 Capsules By Mouth Every 12 hours Bacteremia Acute pyelonephritis Duration: 11 Days Pickup at [id number] Begin tonight at 10:00 PM Unchanged albuterol [...] Mouth Once a day (at bedtime) Resume tonightat bedtime Pharm[facility] Information [id number]: [address] [place], [place] [id number] [phone] What How Much When Comments Stop Taking multivitamin, (Classic ) 1 Tablets By Mouth Every day Test Results CBC BMP WBC: 12.1 E9/L High (10/13/24 06:09:00) Glucose Lvl: 103 mg/dL (10/13/24 06:09:00) RBC: 4.1 E12/L Low (10/13/24 06:09:00) BUN: 8 mg/dL (10/13/24 06:09:00) HGB: 10.7 gm/dL Low (10/13/24 06:09:00) Creatinine: 0.8 mg/dL (10/13/24 06:09:00) Hct: 32.3 % Low (10/13/24:09:00) BUN/Creat Ratio: 10 (10/13/24:09:00) MCV: 79.5 fL Low (10/13/24 06:09:00) Sodium Lvl: 138 mmol/L (10/13/24:09:00) MCH: 26.3 pg Low (10/13/24:09:00) Potassium Lvl: 3.7 mmol/L (10/13/24 06:09:00) MCHC: 33.1 gm/dL (10/13/24:09:00) Chloride: 106 mmol/L (10/13/24 06:09:00) RDW: 17.2 % High (10/13/24:09:00) CO2: 27 mmol/L (10/13/24 06:09:00) Platelet: 260 E9/L (10/13/24 06:09:00) AGAP: 9 mEq/L (10/13/24 06:09:00) MPV: 8.5 fL (10/13/24:09:00) Calcium Lvl: 8.5 mg/dL Low (10/13/24 06:09:00) Allergies No Known Allergies Problems Ongoing - Any problem that you are currently receiving treatment for. None Education Materials Sepsis, Diagnosis, Adult Sepsis is a serious bodily reaction to an infection. The infection that triggers sepsis may be froma bacteria, virus, or fungus. Sepsis can result [...] ??? The skin (cellulitis). (more content not included)...[facility] HospitalIn[facility] Clinical Summaryon [id number] Clinical SummaryInpatient Clinical Summary [address] [address] Clinical Summary Person Information: Name: DILMA KAUR Age: 33 Years : 1990 Sex: Female PCP: MIKEL IBARRA MD Marital Status: Single Race: White Ethnicity: Non- or Language: Fijian Visit Id: Visit Reason: Back pain; Malaise; Body aches; FEVER, BACK PAIN, VOMITING Speciality: Acuity: Enc Type: Inpatient Med Service: Medical Arrival: 10/12/2024 08:49:35 Discharge: Dispo Type: Admitted as IP to this Hosp Address: [address] [place] [phone] Provider Notes: Diagnosis: 1:Sepsis; 2:Bacteremia; 3:Acute pyelonephritis; [...] With: Address: When: MIKEL IBARRA [address], [place] [id number] Business (1) 10/30/2024 1:30 PM Patient Education Information: Sepsis, Diagnosis, AdultNormalMartin Memorial HospitalInpatient Patient Summaryon [id number] Patient SummaryInpatient Patient Summary [place] [id number] Patient Discharge Instructions PERSON INFORMATION Name: DILMA [...] With: Address: When: MIKEL IBARRA [address] [place], [place] [id number] Business (1) 10/30/2024 1:30 PM In the event that this physician does not participate in your insurance network, please consult with your insurance company to find a nearby participating provider. Comment: VINCENT Sanders CHELSIE B, have received the attached patient education materials/instructions and have verbalized understanding: Patient Signature Date Clinican/Nurse Signature Date HERE ARE THE MEDICATION CHANGES THAT OCCURRED DURING YOUR HOSPITAL STAY New Medications [id number], [address], [place] [id number], [phone] cefdinir (cefdinir 300 mg Cap) 1 Capsules By Mouth every 12 hours for 11 Days. Refills: 0. Last Dose: Next Dose: Other Medications acetaminophen (acetaminophen 325 mg Tab) 2 Tablets By Mouth every 6 hours as needed Pain. Last Dose: Next Dose: Medications to Continue with No Changes Other Medications albuterol (Albuterol (Eqv-Ventolin HFA) 90 mcg/inh inhalation aerosol) 2 Inhalation Inhalation every 4 hours. Last Dose: Next Dose: budesonide (Pulmicort Flexhaler 90 mcg/inh inhalation powder) 1 Inhalation Inhalation 2 times a day. Last Dose: Next Dose: citalopram (citalopram 20 mg Tab) 1 Tablets By Mouth every day. Last Dose: Next Dose: oxcarbazepine (oxcarbazepine 150 mg Tab) 1 Tablets By Mouth 2 times a day. Last Dose: Next Dose: phentermine (phentermine 37.5 mg Tab) 1 Tablets By Mouth every day. Last Dose: Next Dose: trazodone (traZODONE 50 mg Tab) 1 Tablets By Mouth once a day (at bedtime). Last Dose: Next Dose: No Longer Take the Following Medications multivitamin, [...] The infection that triggers sepsis may be froma bacteria, virus, or fungus. Sepsis can result [...] organs to stop working. (more content not included)...[facility] HospitalInterdisciplinary Note - Case Manageron [id number] Note - Cyber Software Engineer Interdisciplinary Note - Cyber Software Engineer DC is pending blood cultures at this time. Patient denies DC needs from CM. CM to follow. Plan is home when medically stable.[facility] Comment on above:Result Comment: Electronically Signed By: Erika Velez\Date and Time Signed: 10/15/24 12:12 EDTC Urineon [id number] identified Cx Nom (U)Microbiology PROCEDURE: Urine Culture [R1] SOURCE: U CleanCatch BODY SITE: COLLECTED DATE/TIME: 10/12/2024 10:56 EDT RECEIVED DATE/TIME: 10/12/2024 15:08 EDT START DATE/TIME: 10/12/2024 15:09 EDT FREE TEXT SOURCE: Stefan HILL, Bing Aviles PA-C, Bing Curtis FINAL REPORTS [...] This test was performed at: [facility], [address] [place] [address], [id number] , , FyawjmPmkqxaMercy Health Fairfield HospitalComment on above:Performed By: #### [id number] #### [facility] [address] [place], [place] [address]Lxivnkaciblfjwckv Note - Case Manageron 10-14-2024 Interdisciplinary Note - Case ManagerInterdisciplinary Note - Cyber Software Engineer CM followed up with patient. Patient continues to deny DC needs at this time. Plan is home when medically stable. CM to follow.NormalMartin Memorial HospitalComment on above:Result Comment: Electronically Signed By: Erika Velez\Date and Time Signed: 10/14/24 13:36 EDTNo Panel Information Ordered By: [facility] MICROBIOLOGY on [id number] Culture CharcoalNo growth at 1 day. Final to follow at 7 days.[facility] HospitalBlood Culture CharcoalNo growth at 1 day. Final to follow at 7 days.[facility] HospitalBMPon 55-72-2403Cmxls gap [Moles/Vol]9 mmol/LNormal6-16Martin Memorial HospitalComment on above:Performed By: #### [id number] #### [facility] [address] [place], [place] [address]Szrgvgz [Mass/Vol]8.5 mg/dLLow8.9-11.1FMercy Health St. Charles HospitalComment on above:Performed By: #### [id number] #### [facility] [address] [place], [place] [address]Wgcgozjm [Moles/Vol]106 mmol/IUdffuu712-549QvxieqMartin Memorial HospitalComment on above:Performed By: #### [id number] #### [facility] [address] [place], [place] [address]KL7 [Moles/Vol]27 mmol/ACrzwof83-49ZjoypvMartin Memorial Hospital Comment on above:Performed By: #### [id number] #### [facility] [address] [place], [place] [address]Nnwclttotz [Mass/Vol]0.8 mg/dLNormal0.5-1.3FMercy Health St. Charles HospitalComment on above:Performed By: #### [id number] #### [facility] [address] [place], [place] [address]Yrwruxs [Mass/Vol]103 mg/vNQlkrip97-781VooskdMartin Memorial HospitalComment on above:Performed By: #### [id number] #### [facility] [address] [place], [place] [address]Ukwyriukt [Moles/Vol]3.7 mmol/LNormal3.5-5.3FMercy Health St. Charles HospitalComment on above:Performed By: #### [id number] #### [facility] [address] [place], [place] [address]Fkxzha [Moles/Vol]138 mmol/MXpkjtc054-935KtfuizMartin Memorial HospitalComment on above:Performed By: #### [id number] #### [facility] [address] [place] [address]Llfp nitrogen [Mass/Vol]8 mg/dLNormal5-21Martin Memorial HospitalComment on above:Performed By: #### [id number] #### [facility] [address] [place] [address]Ydmj nitrogen/Creatinine [Mass ratio]10 No YlzwdTqwgyl53-96 [facility] HospitalComment on above:Performed By: #### [id number] #### [facility] [address] [place] [address]AHQ w/ Auto Diffon 71-17-3562Gypcypkec/100 WBC (Bld)0.3 %Normal 0.0-2.0Martin Memorial HospitalComment on above:Performed By: #### [id number] #### [facility] [address] [place], [place] [address]Wjyolvggj/Leukocytes Auto (Bld) [Pure # fraction]0.0 E9/LNormal 0.0-0.2FMercy Health St. Charles HospitalComment on above:Performed By: #### [id number] #### [facility] [address] [place], [place] [address]Yhwurxfmkwa (Bld) [#/Vol]0.0 E9/LNormal0.0-0.5FMercy Health St. Charles HospitalComment on above:Performed By: #### [id number] #### [facility] [address] [place] [address]Wnvyghvqkgu/100 WBC (Bld)0.1 %Normal0.0-8.0Martin Memorial HospitalComment on above:Performed By: #### [id number] #### [facility] [address] [place] [address]Lcyzmxjryfo distribution width (RBC) [Ratio]17.2 %High10.9-14.2 [facility] HospitalComment on above:Performed By: #### [id number] #### [facility] [address] [place] [address]Fqslfvypey (Bld) [Volume fraction]32.3 %Low34.0-46.0Martin Memorial HospitalComment on above:Performed By: #### [id number] #### [facility] [address] [place] [address]Wetxkkymsl (Bld) [Mass/Vol]10.7 g/dLLow12.0-16.0Martin Memorial HospitalComment on above:Performed By: #### [id number] #### [facility] [address] [place] [address]Ohfwgsfqoln (Bld) [#/Vol]2.4 E9/LNormal1.0-4.0Martin Memorial HospitalComment on above:Performed By: #### [id number] #### [facility] [address] [place] [address]Tmrdbfodmbe/100 WBC (Bld)19.8 %Ylhouw21.0-50.0Martin Memorial HospitalComment on above:Performed By: #### [id number] #### [facility] [address] [place] [address]HYV (RBC) [Entitic mass]26.3 pgLow27.0-34.0Martin Memorial HospitalComment on above:Performed By: #### [id number] #### [facility] [address] [place] [address]HVRH (RBC) [Mass/Vol]33.1 g/rXUcwwpu71.4-36.0Martin [facility] HospitalComment on above:Performed By: #### [id number] #### [facility] [address] [place] [address]ZYP (RBC) [Entitic vol]79.5 fLLow80.0-100.0Martin Memorial HospitalComment on above:Performed By: #### [id number] #### [facility] [address] [place] [address]Pibczdtkg (Bld) [#/Vol]1.7 E9/LHigh0.2-1.0Martin Memorial HospitalComment on above:Performed By: #### [id number] #### [facility] [address] [place] [address]Faqbxzkddkb (Bld) [#/Vol]8.0 E9/LHigh2.0-7.5FMercy Health St. Charles HospitalComment on above:Performed By: #### [id number] #### [facility] [address] [place] [address]Mxamgxihjft/100 WBC (Bld)66.0 %Pctyng19.0-75.0Martin Memorial HospitalComment on above:Performed By: #### [id number] #### [facility] [address] [place] [address]Hfnvmaai mean volume (Bld) [Entitic vol]8.5 fLNormal6.4-10.8 [facility] HospitalComment on above:Performed By: #### [id number] #### [facility] [address] [place] [address]Guswtrven (Bld) [#/Vol]260.0 E9/OGcdhip366.0-500.0Martin [facility] HospitalComment on above:Performed By: #### [id number] #### [facility] [address] [place], [place] [address]NFX (Bld) [#/Vol]4.1 E12/LLow4.3-5.9[facility] Comment on above:Performed By: #### [id number] #### [facility] [address] [place], [place] [address]IIW corrected for nucl RBC Auto (Bld) [#/Vol]12.1 E9/LHigh 4.0-11.0Martin [facility] HospitalComment on above:Performed By: #### [id number] #### [facility] [address] [place], [place] [address]EDOUGJVQCLztjpud By: SYSTEM SYSTEM on 00-72-4041Dydybg Acid Lvl 1.4 mmol/LNormal0.5 - 2.2 mmol/LRemisol ChemAnion gap [Moles/Vol]9 mmol/LNormal6 - 16 mEq/LRemisol ChemCalcium [Mass/Vol]8.5 mg/dLLow8.9 - 11.1 mg/dLRemisol ChemChloride [Moles/Vol]106 mmol/MOrjnpc881 - 111 mmol/LRemisol ChemCO2 [Moles/Vol]27 mmol/PKwxtum39 - 31 mmol/LRemisol ChemCreatinine [Mass/Vol]0.8 mg/dLNormal0.5 - 1.3 mg/dLRemisol DhpezRYL935 mL/min/1.73 c2Ubgake >=59mL/min/1.73 g1Fpfhxjz ChemGlucose [Mass/Vol]103 mg/lJPnihks54 - 199 mg/dL Remisol ChemPotassium [Moles/Vol]3.7 mmol/LNormal3.5 - 5.3 mmol/LRemisol Chem Sodium [Moles/Vol]138 mmol/KCxcsom884 - 145 mmol/LRemisol ChemUrea nitrogen [Mass/Vol]8 mg/dLNormal5 - 21 mg/dLRemisol ChemUrea nitrogen/Creatinine [Mass ratio]10 mg/qdAuevpt26 - 20Remisol ChemHEMATOLOGYOrdered By: SYSTEM SYSTEM on 93-62-0198Jjssjqdpl/100 WBC (Bld)0.3 %Normal0.0 - 2.0 %Remisol Heme Basophils/Leukocytes Auto (Bld) [Pure # fraction]0.0 E9/LNormal0.0 - 0.2 E9/L Remisol HemeEosinophils (Bld) [#/Vol]0.0 E9/LNormal0.0 - 0.5 E9/LRemisol Heme Eosinophils/100 WBC (Bld)0.1 %Normal0.0 - 8.0 %Remisol HemeErythrocyte distribution width (RBC) [Ratio]17.2 %High10.9 - 14.2 %Remisol HemeHematocrit (Bld) [Volume fraction]32.3 %Low34.0 - 46.0 %Remisol HemeHemoglobin (Bld) [Mass/Vol]10.7 g/dLLow12.0 - 16.0 gm/dLRemisol HemeLymphocytes (Bld) [#/Vol]2.4 E9/LNormal1.0 - 4.0 E9/LRemisol HemeLymphocytes/100 WBC (Bld)19.8 %Lcxhwe96.0 - 50.0 %Remisol HemeMCH (RBC) [Entitic mass]26.3 pgLow27.0 - 34.0 pgRemisol Heme MCHC (RBC) [Mass/Vol]33.1 g/tTJuilhy44.4 - 36.0 gm/dLRemisol HemeMCV (RBC) [Entitic vol]79.5 fLLow80.0 - 100.0 fLRemisol HemeMonocytes (Bld) [#/Vol]1.7 E9/LHigh0.2 - 1.0 E9/LRemisol HemeMonocytes/100 WBC (Bld)13.8 %Normal4.0 - 14.0 %Remisol HemeNeutrophils (Bld) [#/Vol]8.0 E9/LHigh2.0 - 7.5 E9/LRemisol Heme Neutrophils/100 WBC (Bld)66.0 %Wbzkep64.0 - 75.0 %Remisol HemePlatelet mean volume (Bld) [Entitic vol]8.5 fLNormal6.4 - 10.8 fLRemisol HemePlatelets (Bld) [#/Vol]260.0 E9/TEvfqzk096.0 - 500.0 E9/LRemisol HemeRBC (Bld) [#/Vol]4.1 E12/L Low4.3 - 5.9 E12/LRemisol HemeWBC corrected for nucl RBC Auto (Bld) [#/Vol]12.1 E9/LHigh4.0 - 11.0 E9/LRemisol HemeInterdisciplinary Note - Case Manageron 38-70-8458Ergduojbrxmqjolhi Note - Case ManagerInterdisciplinary Note - Cyber Software Engineer CM met with patient and mother at bedside. Patient is from home and lives with her young daughter. Patient is indepedent with all self care and drives. Patient denies DC needs and mom is supportive if needed at home.NormalMartin Memorial HospitalComment on above:Result Comment: Electronically Signed By: Erika Velez\Date and Time Signed: 10/13/24 11:58 EDTLactic Acidon 10-13-2024 Lactic Acid Lvl1.4 mmol/LNormal0.5-2.2FMercy Health St. Charles HospitalComment on above:Performed By: #### [id number] #### [facility] [address] [place], [place] [address]iOXQoc 02-21-9403bPIP925 mL/min/1.73 i6Aijtvv>=59Martin Memorial HospitalComment on above:Performed By: #### [id number] #### [facility] [address] [place], [place] [address]BPYdg 54-27-0063Xpvyl gap [Moles/Vol]12 mmol/LNormal6-16Martin Memorial HospitalComment on above:Performed By: #### [id number] #### [facility] [address] [place], [place] [address]Whqepqi [Mass/Vol]8.9 mg/dLNormal8.9-11.1FMercy Health St. Charles HospitalComment on above:Performed By: #### [id number] #### [facility] [address] [place], [place] [address]Sbaudywn [Moles/Vol]101 mmol/UAedfaz158-619HscmdhMartin Memorial HospitalComment on above:Performed By: #### [id number] #### [facility] [address] [place], [place] [address]AB1 [Moles/Vol]25 mmol/YNnewjx43-15DficsxMartin Memorial Hospital Comment on above:Performed By: #### [id number] #### [facility] [address] [place], [place] [address]Tbarjbpuay [Mass/Vol]0.8 mg/dLNormal0.5-1.3FMercy Health St. Charles HospitalComment on above:Performed By: #### [id number] #### [facility] [address] [place], [place] [address]Lyrfbhk [Mass/Vol]99 mg/iUPmzwcv71-731UmmjikMartin Memorial HospitalComment on above:Performed By: #### [id number] #### [facility] [address] [place], [place] [address]Pefmtxhzk [Moles/Vol]3.5 mmol/LNormal3.5-5.3FMercy Health St. Charles HospitalComment on above:Performed By: #### [id number] #### [facility] [address] [place], [place] [address]Gltblj [Moles/Vol]134 mmol/VXej930-531OigsieMartin Memorial HospitalComment on above:Performed By: #### [id number] #### [facility] [address] [place], [place] [address]Zlta nitrogen [Mass/Vol]8 mg/dLNormal5-21[facility] HospitalComment on above:Performed By: #### [id number] #### [facility] [address] [place], [place] [address]Ukom nitrogen/Creatinine [Mass ratio]10 No YmoupGvtllf22-48 [facility] HospitalComment on above:Performed By: #### [id number] #### [facility] [address] [place], [place] [address]KDN w/ Auto Diffon 93-98-2874Lvleuftegbep Ql (Bld)PRESENT Invalid Interpretation CodeMartin Memorial HospitalComment on above:Performed By: #### [id number] #### [facility] [address] [place] [address]Auavbxtow/100 WBC (Bld)0.5 %Normal0.0-2.0Martin Memorial HospitalComment on above:Performed By: #### [id number] #### [facility] [address] [place] [address]Nqwzyzmqt/Leukocytes Auto (Bld) [Pure # fraction]0.1 E9/LNormal 0.0-0.2FMercy Health St. Charles HospitalComment on above:Performed By: #### [id number] #### [facility] [address] [place] [address]Csfferalsao (Bld) [#/Vol]0.0 E9/LNormal0.0-0.5FMercy Health St. Charles HospitalComment on above:Performed By: #### [id number] #### [facility] [address] [place] [address] 48[address]Sxadjfctumr/100 WBC (Bld)0.0 %Normal0.0-8.0[facility] Memorial HospitalComment on above:Performed By: #### [id number] #### [facility] [address] [place] [address] 79[address]Pxadeotungl distribution width (RBC) [Ratio]17.2 %High10.9-14.2 [facility] HospitalComment on above:Performed By: #### [id number] #### [facility] [address] [place] [address] 046[address]Efpgushjnj (Bld) [Volume fraction]35.1 %Catwjs25.0-46.0Martin Memorial HospitalComment on above:Performed By: #### [id number] #### [facility] [address] [place] [address]Lklrqsfquc (Bld) [Mass/Vol]11.5 g/dLLow12.0-16.0Martin Memorial HospitalComment on above:Performed By: #### [id number] #### [facility] [address] [place] [address] 175[address]Alaalghxoat Auto Ql (Bld)PRESENTInvalid Interpretation Code [facility] HospitalComment on above:Performed By: #### [id number] #### [facility] [address] [place] [address] 488[address]Gindqacheti (Bld) [#/Vol]1.8 E9/LNormal1.0-4.0Martin Memorial HospitalComment on above:Performed By: #### [id number] #### [facility] [address] [place] [address] 834[address]Zrqqxtvplff/100 WBC (Bld)11.5 %Low14.0-50.0Martin Memorial HospitalComment on above:Performed By: #### [id number] #### [facility] [address] [place] [address] 73467PLF (RBC) [Entitic mass]26.2 pgLow27.0-34.0Martin Memorial HospitalComment on above:Performed By: #### [id number] #### [facility] [address] [place] [address] 07852WTFR (RBC) [Mass/Vol]32.8 g/zFKwwggn84.4-36.0[facility] HospitalComment on above:Performed By: #### [id number] #### [facility] [address] [place] [address] 83547AUO (RBC) [Entitic vol]79.8 fLLow80.0-100.0[facility] Memorial HospitalComment on above:Performed By: #### [id number] #### [facility] [address] [place] [address] 61108Zbodbdkefc Ql (Bld)PRESENTInvalid Interpretation CodeMartin Memorial HospitalComment on above:Performed By: #### [id number] #### [facility] [address] [place] [address] 579[address]Ftokllboz (Bld) [#/Vol]1.8 E9/LHigh0.2-1.0[facility] HospitalComment on above:Performed By: #### [id number] #### [facility] [address] [place] [address] 04121Ugxxomsdkjr (Bld) [#/Vol]11.6 E9/LHigh2.0-7.5FMercy Health St. Charles HospitalComment on above:Performed By: #### [id number] #### [facility] [address] [place] [address] 46898Qjhymumlvxm/100 WBC (Bld)76.3 %High36.0-75.0[facility] Memorial HospitalComment on above:Performed By: #### [id number] #### [facility] [address] [place] [address] 80691Llchgwhy mean volume (Bld) [Entitic vol]8.2 fLNormal6.4-10.8 [facility] HospitalComment on above:Performed By: #### [id number] #### [facility] [address] [place] [address] 93[address]Yuprxalrm (Bld) [#/Vol]270.0 E9/KMchqma134.0-500.0[facility] HospitalComment on above:Performed By: #### [id number] #### [facility] [address] [place] [address] 493[address]Djhvscjxm Large LM Ql (Bld)PRESENTInvalid Interpretation Code [facility] HospitalComment on above:Performed By: #### [id number] #### [facility] [address] [place] [address] 640[address]UNM (Bld) [#/Vol]4.4 E12/LNormal4.3-5.9[facility] HospitalComment on above:Performed By: #### [id number] #### [facility] [address] [place] [address] 80248RXP size Nom (Bld)SEE MORPHOLOGYInvalid Interpretation Code [facility] HospitalComment on above:Performed By: #### [id number] #### [facility] [address] [place], [place] [address]KRB corrected for nucl RBC Auto (Bld) [#/Vol]15.3 E9/LHigh 4.0-11.0[facility] Memorial HospitalComment on above:Result Comment: Peripheral smear review performed.Performed By: #### [id number] #### [facility] [address] [place], [place] [address]HGNSSAQWBIG:SUSC:PT:ISOLATE:ORDQN:MICOrdered By: Bing Delgadillo on 75-18-9069mqyYPGJAyil EDGAR [Susc]Escherichia coli In 2 of 2 blood culture bottles drawn. Isolated from aerobic and anaerobic bottles Preliminary gram stain result of gram negative rods Result called to Dr. Low by [facility] and results read back for confirmation on 10/13/2024 11:16:35[facility] HospitalCEFUROXIME:SUSC:PT:ISOLATE:ORDQN:MICOrdered By: Bing Delgadillo on 67-53-3156Ypibodlnum EDGAR [Susc]>100,000 cfu/ml Escherichia coliMercy Health Perrysburg HospitalCHEMISTRYOrdered By: SYSTEM SYSTEM on 69-91-8944Xhoems Acid Lvl1.3 mmol/LNormal0.5 - 2.2 mmol/LRemisol ChemAlbumin [Mass/Vol]4.0 g/dLNormal3.3 - 5.0 gm/dLRemisol ChemAlbumin/Globulin [Mass ratio]1.0 {ratio}Low1.1 - 2.2Remisol ChemALP [Catalytic activity/Vol]86 [iU]/tHrhytg04 - 98 Int._Unit/LRemisol Chem ALT No additional P-5'-P [Catalytic activity/Vol]14 [iU]/dNormal6 - 46 Int._Unit/LRemisol ChemAnion gap [Moles/Vol]12 mmol/LNormal6 - 16 mEq/LRemisol ChemAST [Catalytic activity/Vol]17 [iU]/dNormal5 - 43 Int._Unit/LRemisol Chem Bilirubin [Mass/Vol]0.8 mg/dLNormal0.0 - 1.1 mg/dLRemisol ChemBilirubin.direct [Mass/Vol]0.3 mg/dLNormal0.0 - 0.4 mg/dLRemisol ChemBilirubin.indirect [Mass or moles/Vol]0.5 mg/dLNormal0.1 - 0.9 mg/dLRemisol ChemCalcium [Mass/Vol]8.9 mg/dL Normal8.9 - 11.1 mg/dLRemisol ChemChloride [Moles/Vol]101 mmol/BUridmq341 - 111 mmol/LRemisol ChemCO2 [Moles/Vol]25 mmol/KTqqpuc81 - 31 mmol/LRemisol Chem Creatinine [Mass/Vol]0.8 mg/dLNormal0.5 - 1.3 mg/dLRemisol MqgwvKSN808 mL/min/1.73 q5Ohfdls>=59mL/min/1.73 k8Vqsmext ChemGlobulin (S) [Mass/Vol]3.9 g/dLNormal1.4 - 4.0 gm/dLRemisol ChemGlucose [Mass/Vol]99 mg/lXQpnsmi22 - 199 mg/dLRemisol ChemLipase [Catalytic activity/Vol]3 U/LLow13 - 58 unit/LRemisol ChemPotassium [Moles/Vol]3.5 mmol/LNormal3.5 - 5.3 mmol/LRemisol ChemProtein [Mass/Vol]7.9 g/dLHigh6.0 - 7.8 gm/dLRemisol ChemSodium [Moles/Vol]134 mmol/LLow 135 - 145 mmol/LRemisol ChemUrea nitrogen [Mass/Vol]8 mg/dLNormal5 - 21 mg/dL Remisol ChemUrea nitrogen/Creatinine [Mass ratio]10 mg/jfPmjugl52 - 20Remisol ChemCT Abdomen/Pelvis w/o Contraston 33-64-5299JG Abdomen/Pelvis w/o Contrast Exam Date/Time: 10/12/2024 11:46 [...] lymph nodes. Vasculature: No aneurysm or dissection. Mesentery/peritoneum/retroperitoneum: No ascites, organized fluid collection, or suspicious [...] Ray Galindo MD Transcribed by: JAMESON Technologist: [facility] CenterCefuroxime EDGAR [Susc]Ordered By: Bing Delgadillo on 22-50-8806Tctjraguqvy coliEscherichia coli [facility] Clinical Summaryon [id number] Clinical Summary ED Clinical Summary [address] [address] ED Clinical Summary Person Information Name: DILMA KAUR [place] Age: 33 Years : 1990 Sex: Female Language: Fijian PCP: MIKEL IBARRA MD Marital Status: Single MRN: [id number] Visit Id: Visit Reason: Back pain; Malaise; Body aches; FEVER, BACK PAIN, VOMITING Speciality: Acuity: 3 Enc Type: Inpatient Med Service: Medical Arrival: 10/12/2024 08:49:35 Discharge: LOS: 000 07:07 Checkin: 10/12/2024 08:49:35 Checkout: 10/12/2024 15:56:18 Dispo Type: Admitted as IP to this [facility] EVENTS: Event Name Event Status Request [...] Care Request 10/12/2024 13:33:11 ADDRESS: [place] [id number] PHYS DOC NOTES: MEDICAL INFORMATION: Prescriptions Given: Medications to Continue with No Changes Other Medications albuterol (albuterol HFA 90 mcg/inh MDI) 1 Puffs Inhalation every 4 hours as needed for wheezing. Refills: 0. APAP/dextromethorphan/pseudoephedrine (DayQuil) multivitamin, (Classic ) 1 Tablets By Mouth every day. promethazine (Phenergan 25 mg Tab) 1 Tablets By Mouth every 6 hours. PATIENT EDUCATION INFORMATION: Instructions: Follow up: DIAGNOSIS: Acute pyelonephritis; Leukocytosis; N&V (nausea and vomiting)NormalEdward Pepe Medical CenterED Note-Physicianon [id number] Note-PhysicianED Note-Physician Basic Information Time Seen: Stefan HILL, Bing Curtis 10/12/2024 09:01 Chief Complaint pr presents with c/o back pain, body aches and chills. states fever for past 3 days. c/o lower backpain History of Present Illness Patient is a 33-year-old female status post appendectomy who presents to the ED with left lower back pain, malaise, and fevers that has been going on for the past 2 to 3 days. Patient describes the lower back pain as occurring sporadically, but notes it is worsened when laying on her left side. Shedenies any known injury or trauma. Patient states she has been experiencing fevers ranging from 101to 104 ???F. Patient states she had a fever of 104 ???F today and took Tylenol around 0630. She does note nausea and vomiting as well. Patient denies any abdominal pain, changes urination, or changesin bowel movements. Review of Systems A 10 [...] is 134. Urinalysis is concerning for urinary tractinfection. CT abdomen/pelvis is showing mild left perinephric stranding most likely pyelonephritis or recently passed calculi. There is no hydronephrosis or significant urinary tract calculi. Patientdenies any urinary symptoms to represent passage of a stone, therefore I do have more suspicion forpyelonephritis. Patient is given Rocephin and 1 L [...] 1,000 mg = 1 EA, IV Piggyback, Once,Stop date 10/12/24 11:47:00 EDT, STAT, Start date 10/12/24 11:47:00 EDT, 100 mL/hr, Infuse over 30 minute(s), 10/12/24 11:47:00 EDT ketorolac, 30 mg = 1 mL, Injection, IV Push, Once, Stop date 10/12/24 11:47:00 EDT, STAT, Start date 10/12/24 11:47:00 EDT, 10/12/24 11:47:00 EDT ondansetron, 4 mg = 1 tab(s), Tab-Dis, Oral, Once, Stop date 10/12/24 9:10:00 EDT, STAT, Start date10/12/24 9:10:00 EDT, 10/12/24 9:10:00 EDT promethazine 12.5 mg + Sodium Chloride 0.9% intravenous solution 50 mL, IV Piggyback, Once, Stop date 10/12/24 12:08:00 EDT, STAT, Start date 10/12/24 12:08:00 EDT, 151.5 mL/hr, Infuse over 20 minute(s), 10/12/24 12:08:00 EDT Sodium Chloride 0.9% intravenous solution, 1,000 mL, Soln-IV, IV, Once, Stop date 10/12/24 12:08:00EDT, STAT, Start date 10/12/24 12:08:00 EDT, Infuse [...] No active prescription medications (more content not included)...[facility]field HospitalComment on above:Result Comment: Electronically Signed By: Bing Aviles PA-C\.br\Date and Time Signed: 10/12/2513:52 EDT\.br\Electronically Co-Signed By: Ynes Trinidad M.D.\.br\Date and Time Co-Signed: 10/12/24 16:53 EDTED Patient Education Noteon [id number] Patient Education NoteED Patient Education NoteNoAshtabula [facility] Patient Summaryon [id number] Patient SummaryED Patient Summary [place] [id number] Patient Discharge Instructions Person Information Name: DILMA KAUR Age: 33 Years Arrival Date: 10/12/2024 08:49:35 Discharge Diagnosis: Acute pyelonephritis; Leukocytosis; N&V (nausea and vomiting) Primary Care Physician: MIKEL IBARRA MD Provider Information Primary Provider: Ynes Trinidad M.D. Advanced Side Seam Tender:Bing Aviles PA-C The exam and treatment you received in the Emergency Department were for an urgent problem and are not intended as complete care. It is important that you follow up with a doctor, nurse practitioner,or physician???s research lab assistant for ongoing care. If your symptoms become worse or you do not improve asexpected and you are unable to reach your [...] opioids can be used to help relieve jzdobmsj-gi-hjzntu pain and are often prescribed following a [...] guidance from the Food and Drug Administration (www.fda.gov/Drugs/ResourcesForYou). ??? Visit www.cdc.gov/drugoverdose to learn about the risks of opioids abuse and overdose. ??? If you believe you may be struggling with addiction, tell your health manager critical care and askfor guidance or call [facility]???S [employer] Helpline at 0-942-403-UHYJ. v Source: [employer] Department of (more content not included)...[facility] HospitalExtra Blueon 39-08-3128Wxsn Collected PlasmaYesInvalid Interpretation [facility] HospitalComment on above:Performed By: #### [id number] #### [facility] [address], [place] [address]PZMLNWGMPXErikqpo By: SYSTEM SYSTEM on 32-48-6107Gbvdfwitehaf Ql (Bld)PRESENT *NA* (10/12/24 9:18 AM)Invalid Interpretation CodeRemisol HemeBasophils/100 WBC (Bld) 0.5 %Normal0.0 - 2.0 %Remisol HemeBasophils/Leukocytes Auto (Bld) [Pure # fraction]0.1 E9/LNormal0.0 - 0.2 E9/LRemisol HemeEosinophils (Bld) [#/Vol]0.0 E9/LNormal0.0 - 0.5 E9/LRemisol HemeEosinophils/100 WBC (Bld)0.0 %Normal0.0 - 8.0 %Remisol HemeErythrocyte distribution width (RBC) [Ratio]17.2 %High10.9 - 14.2 %Remisol HemeHematocrit (Bld) [Volume fraction]35.1 %Uzkiov53.0 - 46.0 % Remisol HemeHemoglobin (Bld) [Mass/Vol]11.5 g/dLLow12.0 - 16.0 gm/dLRemisol Heme Hypochromia Auto Ql (Bld)PRESENT *NA* (10/12/24 9:18 AM)Invalid Interpretation CodeRemisol HemeLymphocytes (Bld) [#/Vol] 1.8 E9/LNormal1.0 - 4.0 E9/LRemisol HemeLymphocytes/100 WBC (Bld)11.5 %Low14.0 - 50.0 %Remisol HemeMCH (RBC) [Entitic mass]26.2 pgLow27.0 - 34.0 pgRemisol Heme MCHC (RBC) [Mass/Vol]32.8 g/lEZcqqrn03.4 - 36.0 gm/dLRemisol HemeMCV (RBC) [Entitic vol]79.8 fLLow80.0 - 100.0 fLRemisol HemeMicrocytes Ql (Bld)PRESENT *NA* (10/12/24 9:18 AM)Invalid Interpretation CodeRemisol HemeMonocytes (Bld) [#/Vol] 1.8 E9/LHigh0.2 - 1.0 E9/LRemisol HemeMonocytes/100 WBC (Bld)11.7 %Normal4.0 - 14.0 %Remisol HemeNeutrophils (Bld) [#/Vol]11.6 E9/LHigh2.0 - 7.5 E9/LRemisol HemeNeutrophils/100 WBC (Bld)76.3 %High36.0 - 75.0 %Remisol HemePlatelet mean volume (Bld) [Entitic vol]8.2 fLNormal6.4 - 10.8 fLRemisol HemePlatelets (Bld) [#/Vol]270.0 E9/UFlykmm167.0 - 500.0 E9/LRemisol HemePlatelets Large LM Ql (Bld) PRESENT *NA* (10/12/24 9:18 AM)Invalid Interpretation CodeRemisol HemeRBC (Bld) [#/Vol]4.4 E12/LNormal4.3 - 5.9 E12/LRemisol HemeRBC size Nom (Bld)SEE MORPHOLOGY *NA* (10/12/24 9:18 AM)Invalid Interpretation CodeRemisol HemeWBC corrected for nucl RBC Auto (Bld) [#/Vol]15.3 E9/LHigh4.0 - 11.0 E9/LRemisol HemeComment on above: Result Comment: Peripheral smear review performed.[facility] Fun Panelon 10-12-2024 Albumin [Mass/Vol]4.0 g/dLNormal3.3-5.0[facility] HospitalComment on above:Performed By: #### [id number] #### [facility] [address], [place] [address]Tjjzktp/Globulin (S) [Mass conc ratio]1.0Low1.1-2.2FMercy Health St. Charles HospitalComment on above:Performed By: #### [id number] #### [facility] [address] [place] [address]UWC [Catalytic activity/Vol]86 Int._Unit/MFycqrt93-15OvvqnyMartin Memorial HospitalComment on above:Performed By: #### [id number] #### [facility] [address], [place] [address]ZFQ No additional P-5'-P [Catalytic activity/Vol]14 Int._Unit/L Normal6-46Martin [facility] HospitalComment on above:Performed By: #### [id number] #### [facility] [address] [place] [address]WAT [Catalytic activity/Vol]17 Int._Unit/LNormal5-43[facility] HospitalComment on above:Performed By: #### [id number] #### [facility] [address], [place] [address]Mihlnyjmv [Mass/Vol]0.8 mg/dLNormal0.0-1.1FMercy Health St. Charles HospitalComment on above:Performed By: #### [id number] #### [facility] [address], [place] [address]Uypovdxzv.direct [Mass/Vol]0.3 mg/dLNormal0.0-0.4FMercy Health St. Charles HospitalComment on above:Performed By: #### [id number] #### [facility] [address], [place] [address]Emofmzivw.indirect [Mass or moles/Vol]0.5 mg/dLNormal0.1-0.9 [facility] HospitalComment on above:Performed By: #### [id number] #### [facility] [address], [place] [address]Xpbwedah (S) [Mass/Vol]3.9 g/dLNormal1.4-4.0[facility] HospitalComment on above:Performed By: #### [id number] #### [facility] [address] [place] [address]Mfyieyl [Mass/Vol]7.9 g/dLHigh6.0-7.8[facility] HospitalComment on above:Performed By: #### [id number] #### [facility] [address] [place] [address]Gufqdh Acidon 08-67-2343Ywzktq Acid Lvl1.3 mmol/LNormal0.5-2.2 [facility] HospitalComment on above:Performed By: #### [id number] #### [facility] [address] [place] [address]Ehftzv Levelon 90-63-5252Lamfvx [Catalytic activity/Vol]3 U/L Ddk74-67DgzczuMartin Memorial HospitalComment on above:Performed By: #### [id number] #### [facility] [address] [place] [address]Up Panel InformationOrdered By: Bing Delgadillo on 68-71-0376Lxxlw Culture CharcoalStaphylococcus species coagulase negative In 2 of 2 blood culture bottles drawn. Isolated from aerobic and anaerobic bottles Preliminary gram stain of gram positive cocci in clusters Result called to Dr. Low by THELMA and results read back for confirmation on 10/14/2024 08:06:24Kettering HealthEROLOGYOrdered By: Tressa Drake on 08-35-5009NUE.beta subunit (U) [Moles/Vol]NegativeNormalFTMC Man SeroU BetaHcg Qualon 32-26-6472VTK.beta subunit (U) [Moles/Vol]NegativeNormalMartin Memorial HospitalComment on above:Performed By: #### [id number] #### [facility] [address], [place] [address]QM with Cult Rflxon 75-23-8562Nfynnwui Auto Ql (U)TraceNormal TraceMartin Memorial HospitalComment on above:Performed By: #### [id number] #### [facility] [address], [place] [address]Tgkiievsp Ql (U)NegativeNormalNegativeMartin Memorial HospitalComment on above:Performed By: #### [id number] #### [facility] [address], [place] [address]Nemvudo (U)ClearNormalClearMartin Memorial HospitalComment on above:Performed By: #### [id number] #### [facility] [address], [place] [address]Tcbia (U)Light-YellowNormalYellowMartin Memorial Hospital Comment on above:Result Comment: Microscopic readings are only performed on those samples that meet specific criteria set forth by [facility].Performed By: #### [id number] #### [facility] [address], [place] [address]Mwwdxvhz.amorphous Computer assisted Ql (U)PresentAbnormal [facility] HospitalComment on above:Performed By: #### [id number] #### [facility] [address], [place] [address]Ftjasmyejm cells.squamous Auto (Urine sed) [#/Area]0-2Invalid Interpretation CodeMartin Memorial HospitalComment on above:Performed By: #### [id number] #### [facility] [address], [place] [address]Kkhzxrc Ql (U)NegativeNormalNegSt. Anthony's Hospital Comment on above:Performed By: #### [id number] #### [facility] [address], [place] [address]Auwackfyqb Auto test strip (U) [Mass/Vol]TraceAbnormalNegative [facility] HospitalComment on above:Performed By: #### [id number] #### [facility] [address], [place] [address]Psnjsqx Auto test strip Ql (U)TraceAbnormalNegativeMartin Memorial HospitalComment on above:Performed By: #### [id number] #### [facility] [address], [place] [address]Uvwaxxmna esterase Auto test strip Ql (U)250 Elda/uLAbnormal [facility]al Medical CenterComment on above:Performed By: #### [id number] #### [facility] [address] [place] [address]Vspiz Auto Ql (U)NegativeNormalNegativeMartin Memorial HospitalComment on above:Performed By: #### [id number] #### [facility] [address], [place] [address]Dxzmjpb Auto test strip Ql (U)NegativeNormalNegativeMartin Memorial HospitalComment on above:Performed By: #### [id number] #### [facility] [address] [place] [address]wG (U)6.0 [pH]Invalid Interpretation Code5.0-9.0[facility] HospitalComment on above:Performed By: #### [id number] #### [facility] [address], [place] [address]Jiqtuwm Ql (U)TraceAbnormalNegSt. Anthony's Hospital Comment on above:Performed By: #### [id number] #### [facility] [address], [place] [address]NSA Ql (U)4-5Ojkheo6-0Chtvcf [facility] CenterComment on above:Performed By: #### [id number] #### [facility] [address], [place] [address]Shwevgqy gravity (U) [Rel density]1.009Invalid Interpretation Code1.005-1.030Martin Memorial HospitalComment on above:Performed By: #### [id number] #### [facility] [address], [place] [address]Ijjtsvvzylct (U) [Mass/Vol]NegativeNormalNegativeMartin Memorial HospitalComment on above:Performed By: #### [id number] #### [facility] [address] [place] [address]XTX Auto (Urine sed) [#/Area]13-65Ridtumqu4-8Mdnxmd [facility] CenterComment on above:Performed By: #### [id number] #### [facility] [address] [place] [address]Qnnl of Urine collection methodClean CatchNormalMartin Memorial HospitalComment on above:Performed By: #### [id number] #### [facility] [address] [place] [address]ADWOEIUMWWVyqbpmu By: SYSTEM SYSTEM on 30-90-7037Fooxjavr Auto Ql (U)Trace /HPFNormalTrace/HPFDRUMRIGHT REGIONAL HOSPITAL – [facility] UA Auto SSBilirubin Ql (U)NegativeNormal Negativemg/dLDRUMRIGHT REGIONAL HOSPITAL – [facility] UA Auto SSClarity (U)Clear (10/12/24 10:56 AM)NormalClearFAMERICAN HOSPITAL ASSOCIATION UA Auto SSColor (U)Light-Yellow 1 (10/12/24 10:56 AM)NormalYellowDRUMRIGHT REGIONAL HOSPITAL – [place] UA Auto SSComment on above:Interpretive Data: Microscopic readings are only performed on those samples that meet specific criteria set forth by [facility].Crystals.amorphous Computer assisted Ql (U)Present graded/HPFInvalid Interpretation CodeDRUMRIGHT REGIONAL HOSPITAL – [place] UA Auto SSEpithelial cells.squamous Auto (Urine sed) [#/Area]0-2 graded/HPFInvalid Interpretation CodeDRUMRIGHT REGIONAL HOSPITAL – [facility] UA Auto SSGlucose Ql (U)NegativeNormalNegativemg/dLDRUMRIGHT REGIONAL HOSPITAL [facility] UA Auto SSHemoglobin Auto test strip (U) [Mass/Vol]Trace mg/dLInvalid Interpretation CodeNegativemg/dLDRUMRIGHT REGIONAL HOSPITAL [facility] [place] UA Auto SSKetones Auto test strip Ql (U) Trace mg/dLInvalid Interpretation CodeNegativemg/dLDRUMRIGHT REGIONAL HOSPITAL [facility] UA Auto SSLeukocyte esterase Auto test strip Ql (U)250 Elda/uL Elda/uLInvalid Interpretation Code NegativeLeu/uLDRUMRIGHT REGIONAL HOSPITAL – [facility] UA Auto SSMucus Auto Ql (U)NegativeNormalNegativegraded/LPF [facility] UA Auto SSNitrite Auto test strip Ql (U)NegativeNormalNegativemg/dLDRUMRIGHT REGIONAL HOSPITAL [facility] UA Auto SSpH (U)6.0 *NA* (10/12/24 10:56 AM)Invalid Interpretation Code5.0 - 9.0DRUMRIGHT [facility] UA Auto SSProtein Ql (U)Trace mg/dLInvalid Interpretation CodeNegativemg/dLDRUMRIGHT REGIONAL HOSPITAL [facility] UA Auto SSRBC Ql (U) 0-3 graded/HPFNormal0-3graded/HPFDRUMRIGHT REGIONAL HOSPITAL – [facility] UA Auto SSSpecific gravity (U) [Rel density]1.009 *NA* (10/12/24 10:56 AM)Invalid Interpretation Code1.005 - 1.030DR[facility] UA Auto SS Urobilinogen (U) [Mass/Vol]NegativeNormalNegativemg/dLDRUMRIGHT REGIONAL HOSPITAL [facility] UA Auto SSWBC Auto (Urine sed) [#/Area]31-75 graded/HPFInvalid Interpretation Code0-5graded/HPFDRUMRIGHT REGIONAL HOSPITAL – [facility] UA Auto SSURINALYSISOrdered By: Bing Aviles on 37-18-6042FA Spec DescClean Catch (10/12/24 10:56 AM)NormalDRUMRIGHT REGIONAL HOSPITAL – DRUM[facility] UA Auto SS cefTRIAXone EDGAR [Susc]Ordered By: Bing Delgadillo on 89-15-4380Cxbbazxhgsz coliEscherichia coliLongmont - [facility] Medical CentereGFRon 52-12-0650dZBD444 mL/min/1.73 m7Nahzif>=59Martin Memorial HospitalComment on above:Performed By: #### [id number] #### [facility] [address] [place], [place] [address]KLM,APTIMA HPV,AGE GDLNon 38-77-8206YGU GDLN ACOG TESTINGNote. [facility]OMS HealthcareComment on above:TESTS RESULT FLAG UNITS REF RANGE LAB Clinician Provided Cytology Information Source.............Cervix;Endocervix No. of containers..01 ThinPrep Vial Age Jareto [facility] Pily... FLAG LEGEND: L-Low Normal,H-High Normal,LL-Alert Low,HH-Alert High <-Panic Low,>-Panic High,A-Abnormal,AA-Critical Abnormal Performed at: 01 =[address] [address] Angie Howell MD, HPV APTIMAPositiveAbnormalNegativeNOMS HealthcareComment on above:This nucleic acid amplification test detects fourteen high- risk HPV types (16,18,31,33,35,39,45,51,52,56,58,59,66,68) without differentiation. HPV GENOTYPE 16NegativeNegativeNOMS HealthcareHPV GENOTYPE 18,45NegativeNegative N[facility]S HealthcareComment on above:Performed at: =[address] [id number] Billet Bed Operator: Angie Howell MD, Phone: [phone] Performed at: [address] [id number] Billet Bed Operator: Angie Howell MD, Phone: [phone] IGP, APTIMA HPV, RFX 16/18,45Note.NOMS HealthcareComment on above:TESTS RESULT FLAG UNITS REF RANGE LAB DIAGNOSIS: 02 NEGATIVE FOR INTRAEPITHELIAL LESION OR MALIGNANCY. THIS SPECIMEN WAS RESCREENED PART OF OUR RUG DRY ROOM ATTENDANT PROGRAM. Specimen adequacy: 02 Satisfactory for evaluation. Endocervical and/or squamous metaplastic cells (endocervical component) are present. Performed by: 03 Keyanna Hoff, Yarn Worker (ASC) QC reviewed by: 02 Karey Rodgers, Yarn Worker (ASC) . 02 Note: Note 02 The [...] High,A-Abnormal,AA-Critical Abnormal Performed at: 02 [address] [facility] [address] [place] [address] Angie Howell MD, 03 KWCYT [facility] [place] [facility] [address] [place] [address] Kushal Cotto MD, Interpretation and review of laboratory resultsAbVeterans Affairs Medical Center BRUSH-SPATULA CERVIX ENDOCERVIX CLINISYNCSaint John's HospitalLactate, Sepsison 07-49-0467Dlcehvtedwwljp and review of laboratory resultsAbnormTidalHealth NanticokeLactate, Sepsis4.2 mmol/L Critically high0.5 - 2.0 mmol/LRoper [facility] Hospital For The Chronically IllComment on above: Critical value(s) called and RB/V to _Bella Weight COMPACT ASSEMBLER 05/10/2024 01:11:25 EDT [id number] [facility] with Auto Differentialon 08-16-3029Nqchcedhi (Bld) [#/Vol]0.0 10*3/uLRoper St. Francis Mount Pleasant Hospitaler [facility] The Chronically IllBasophils/100 WBC (Bld)0.2 % 0.0 - 2.0 %Nemours FoundationEosinophils (Bld) [#/Vol]0.4 10*3/uLRoper [facility] Hospital For The Chronically IllEosinophils/100 WBC (Bld)2.5 %0.0 - 7.0 %Nemours FoundationErythrocyte distribution width (RBC) [Ratio]15.6 %10.0 - 17.0 %N[facility]ours FoundationHematocrit (Bld) [Volume fraction]35.6 %34.0 - 47.0 %[facility] FoundationHemoglobin (Bld) [Mass/Vol]11.0 g/dLLow11.5 - 15.7 g/dLNemours FoundationImmature Grans (Abs)0.02[facility], Kent Campusture granulocytes/100 WBC (Bld)0.1 %0.0 - 0.6 %[facility]em[facility] FoundationInterpretation and review of laboratory resultsAbnoMiddletown Emergency DepartmentLymphocytes Auto (Unsp spec) [#/Vol]1.4 10*3/uLRoper [facility] Hospital For The Chronically IllLymphocytes/100 WBC (Bld)8.3 %Low15.0 - 45.0 %[facility] [place] (RBC) [Entitic mass]26.1 pgLow27.0 - 34.5 pgRoper [facility] Hospital For The Chronically IllMCHC (RBC) [Mass/Vol]30.9 g/dL30.0 - 36.0 g/[address]LRoper St. Francis Mount Pleasant Hospitaler [facility] Chronically IllMCV (RBC) [Entitic vol]84.6 fL81.0 - 99.0 fLNemours FoundationMonocytes (Bld) [#/Vol]0.9 10*3/uLNemours Foundation Monocytes/100 WBC (Bld)5.3 %4.0 - 12.0 %Nemours FoundationNeutrophils (Bld) [#/Vol]13.8 10*3/uLHighNemours FoundationNeutrophils/100 WBC (Bld)83.6 %High42.0 - 74.0 %Nemours FoundationPlatelet mean volume (Bld) [Entitic vol]10.0 fL7.0 - 12.2 fLNemours FoundationPlatelets (Bld) [#/Vol]319 10*3/uLRoper [facility] Hospital For The Chronically IllRBC (Bld) [#/Vol]4.21 10*6/uLRoper St. Francis [facility] Ple[facility] Hospitaler [facility] Chronically IllWBC (Bld) [#/Vol]16.5 10*3/uLHighRoper St. Francis Mount Ple[facility] Hospitaler [facility] Chronically IllCOVID-19 & Influenza Combo ([facility])on 53-62-7488BOKNJ RNA OLGA+probe Ql (Resp)Not detectedNot DetectedNemours FoundationFLUBV RNA OLGA+probe Ql (Resp)Not detectedNot DetectedNemours Foundation SARS-CoV-2 (COVID-19) RNA OLGA+probe Ql (Resp)Not detectedNot DetectedNemours FoundationComment on above:The bhavana SARS-CoV-2 & Influenza A/B Nucleic acid [...] Authorization. SARS-CoV-2 (COVID-19) RNA OLGA+probe Ql (Unsp spec)Is this test for diagnosis or screening?->Diagnosis of ill patient Symptomatic for COVID-19 as defined by CDC?->Yes Hospitalized for COVID-19?->No Admitted to ICU for COVID-19?->[facility] LABORATORYNemours FoundationComprehensive Metabolic Panelon 91-22-3031Vysrqqa [Mass/Vol]4.1 g/dL 3.5 - 5.2 g/dLNemours FoundationAlbumin/Globulin [Mass ratio]1.00 {ratio}1.00 - 2.70Nemours FoundationALP [Catalytic activity/Vol]99 U/L [facility] FoundationALT [Catalytic activity/Vol]11 U/LRoper [facility] Hospital For The Chronically IllAnion gap [Moles/Vol]13 mmol/L2 - 17 mmol/LRoper [facility] Hospital For The Chronically IllAST [Catalytic activity/Vol]13 U/LRoper [facility] Bilirubin [Mass/Vol]0.30 mg/dL0.00 - 1.20 mg/dLNemours Foundation Calcium [Mass/Vol]9.1 mg/dL8.5 - 10.7 mg/dLNemours FoundationChloride [Moles/Vol]105 mmol/L98 - 107 mmol/LRoper [facility] Chronically IllCreatinine [Mass/Vol]0.7 mg/dL0.5 - 1.0 mg/dLRopBeebe HealthcareEst, Glom Filt Oqtj914- PINFRoper [facility] Hospital For The Chronically IllComment on above:VERIFIED by Discern Expert. GFR Interpretation: % OF KIDNEY GFR STAGE FUNCTION == > 90 Normal kidney function STAGE 1 90-100% 89 to 60 Mild loss of kidney function STAGE 2 80-60% 59 to 45 Mild to moderate loss of kidney function STAGE 3a 59-45% 44 to 30 Moderate to severe loss of kidney function STAGE 3b 44-30% 29 to 15 Severe loss of kidney function STAGE 4 29-15% < 15 Kidney failure STAGE 5 <15% == Modified from [employer] GFR Calculation performed using the CKD-EPI 2020 equation developed for use with IDMS traceable creatinine methods and is the calculation recommended by the National [employer] Foundation for estimating GFR in adults. Globulin (S) [Mass/Vol]3.0 g/dL1.9 - 4.4 g/dLNemours FoundationGlucose [Mass/Vol]121 mg/sCTkcc09 - 99 mg/dLNemours FoundationHCO3 (P) [Moles/Vol]21 mmol/LLow22 - 29 mmol/LRoper [facility] Chronically IllInterpretation and review of laboratory resultsAbnormalRopBeebe HealthcareOsmolality Calc [Osmolality]276Roper [facility] Chronically IllPotassium [Moles/Vol]3.7 mmol/L 3.5 - 5.3 mmol/LRoper [facility] For [facility] Chronically IllProtein [Mass/Vol]7.1 g/dL5.7 - 8.3 g/dLNemours FoundationSodium [Moles/Vol]139 mmol/L135 - 145 mmol/L Nem[facility] FoundationUrea nitrogen [Mass/Vol]6 mg/dL6 - 20 mg/dLNemours FoundationLactate, Sepsison 52-97-7668Idxpobxyewzpak and review of laboratory resultsAbnormalNemours FoundationLactate, Sepsis3.7 mmol/L Critically high0.5 - 2.0 mmol/LRoper Delaware Hospital For The Chronically IllComment on above: Critical Result(s) Called and R/V to: Ezequiel Devi RN ED 05/09/2024 22:32:59 EDT by [id number] Nemours FoundationMagnesiumon 44-70-2770Vhgirfyin [Mass/Vol]2.1 mg/dL 1.6 - 2.6 mg/dLNemours FoundationNo Panel Informationon 05-09-2024 [facility] Urine Qual on 09-28-3274Grhm Test, UrNegativeNegativeNemours FoundationComment on above:[facility] [place] [facility] Urine QualOrdered By: Brigette Weight on 52-49-2735Dfua HCG ( test) Ql (U)NegativeNegative Nemours FoundationLot [id number] Foundation Negative QC Pass/FailPassNemours FoundationPositive QC Pass/FailPass Nemours FoundationPortable XR Chest AP single viewon 05-09-2024 No acute process identified.[facility] RADCHEST: AP (or PA), 05/09/2024 9:29 PM INDICATION: Shortness of Breath COMPARISON: None FINDINGS: Cardiac silhouette is not enlarged. No pulmonary vascular congestion appreciated. No pulmonary edema or pneumonia. No pleural fluid. [facility] Avinash Felder MD - 05/09/2024 CHEST: AP (or PA), 05/09/2024 9:29 PM INDICATION: Shortness of Breath COMPARISON: None FINDINGS: Cardiac silhouette is not enlarged. No pulmonary vascular congestion appreciated. No pulmonary edema or pneumonia. No pleural fluid. IMPRESSION: No acute process identified. [facility] Work Phone: Radiology Study observation (narrative)[facility] Work Phone: portable XR Chest AP single viewOrdered By: Avinash Mccall on 65-79-2280WkvgkChristianaCare Work Phone: Procalcitoninon 56-92-8947Zeybjijvkraep8.14 ng/mLNINF - 0.24 ng/mLRoper Delaware Hospital For The Chronically IllComment on above:PROCALCITONIN INTERPRETATION (based on clinical content from www.[employer].Design Clinicals/asp): Normal: <0.25 ng/mL (infants >72 hours - [...] algorithms available on the Antimicrobial Stewardship Website (www.[employer].Design Clinicals/asp). Nemours FoundationTroponinon 73-27-1679Aojikiqm, High Sensitivityng/L0 - 14 ng/LRoper Delaware Hospital For The Chronically IllComment on above:The immunoassay is intended to aid in the diagnosis of myocardial infarction.Nemours FoundationUrinalysis W/ Rflx Microscopicon 72-81-6302Rydlxjoukw (U)ClearRopBeebe HealthcareBilirubin (U) [Mass/Vol]NegativeNegativeRoper Delaware Hospital For The Chronically IllBlood, UrineNegativeNegativeRoper [facility] Hospital For The Chronically IllColor (U) YellowRoper [facility] Hospital For The Chronically IllGlucose Auto test strip (U) [Mass/Vol]Negative NegativeNemours FoundationInterpretation and review of laboratory resultsAbnormalRoper [facility] Hospital For The Chronically IllKetones (U) [Mass/Vol]Negative NegativeRoper St. Francis Mount Pleasant Hospitaler [facility] For The Chronically IllLeukocyte esterase Test strip Ql (U)Negative NegativeRoper [facility] Hospital For The Chronically IllNitrite Auto test strip Ql (U)Negative NegativeRoper St. Francis Mount Pleasant Hospitaler [facility] For The Chronically IllpH (U)6.0 [pH]4.5 - 8.0Roper [facility] Chronically IllProtein Ql (U)TraceNegativeNemours FoundationSpecific gravity (U) [Rel density]Abnormal1.003 - 1.035RopBeebe Healthcare Urobilinogen Qn (U)0.2 {Bee'U}/dL1 - PINF EU/dLRoper [facility] Hospital [facility] Chronically Ill [facility] The Chronically IllGLYCOHEMOGLOBIN A1Con 00-16-1294SEU RECOMMENDATION SEE BELOWClermont County HospitalComment on above:Result Comment: ADA RECOMMENDED LIMIT 4.0 - 6.0 ADA THERAPEUTIC TARGET < 7.0 ACTION SUGGESTED > 7.0Performed By: #### A1C #### [facility] [address] [place] [address] Dr. Kavon CardenasGlucose [Mass/Vol]103 mg/dLNoProtestant HospitalComment on above:Performed By: #### A1C #### [facility] [address] [address] [address] Kavon CardenasHbA1c (Bld) [Mass fraction]5.2 %Normal4.5-6.2The St. Charles HospitalComment on above:Performed By: #### A1C #### [facility] [address] [place] [address] Dr. Kavon CardenasGTT 3 HR PREGon 60-20-0148Zhubokg [Mass/Vol]94 mg/jMJwkywb27-[address] Charles HospitalComment on above:Performed By: #### CARDIGM #### [facility] [address] [place] [address] Dr. Kavon Thorpe AUTO DIFFon 61-23-5362IVQY #0.1 103/ulNormal0.0-0.1The St. Charles HospitalComment on above:Performed By: #### CBC #### [facility] [address] [place] [address] Dr. Kavon CardenasBasophils/100 WBC (Bld)0.3 %Normal0.2-2.0[facility] Comment on above:Performed By: #### CBC #### [facility] [address] [place] [address] Dr. Kavon Underwood #0.2 103/ulNormal0.0-0.7The St. Charles HospitalComment on above: Performed By: #### CBC #### [facility] [address] [place] [address] Dr. Kavon Gaosinophils/100 WBC (Bld)1.3 %Normal0.9-7.0[facility] Comment on above:Performed By: #### CBC #### [facility] [address] [place] [address] Dr. Kavon Garythrocyte distribution width (RBC) [Ratio]14.5 %Ipvrxo85.0-15.0 Access Hospital DaytonComment on above:Performed By: #### CBC #### [facility] [address] [place] [address] Dr. Kavon CardenasHematocrit (Bld) [Volume fraction]35.4 %Critically low36.0-48.[address] Charles HospitalComment on above:Performed By: #### CBC #### [facility] [address] [place] [address] Dr. Kavon CardenasHemoglobin (Bld) [Mass/Vol]11.4 g/dLCritically low12.0-16.0The [facility] Charles HospitalComment on above:Performed By: #### CBC #### [facility] [address] [place] [address] Dr. Kavon Mosher #0.19 10e3/ulCritically high0.00-0.03[facility] Comment on above:Performed By: #### CBC #### [facility] [address] [address] [address] Kavon Mosher %1.1 %Critically high0.0-0.5The St. Charles HospitalComment on above:Performed By: #### CBC #### [facility] [address] [address] [address] Kavon Macias #3.1 103/ulNormal1.2-3.8The St. Charles HospitalComment on above:Performed By: #### CBC #### [facility] [address] [place] [address] Dr. Kavon Nietohocytes/100 WBC (Bld)17.8 %Critically low20.5-60.0The [facility]. Charles HospitalComment on above:Performed By: #### CBC #### [facility] [address] [place] [address] Dr. Kavon Riggs DIFF REQNONormalThe St. Charles HospitalComment on above: Performed By: #### CBC #### [facility] [address] [place] [address] Dr. Kavon Long (RBC) [Entitic mass]28.6 eqEucwfb78.7-34.0The [facility]. Charles HospitalComment on above:Performed By: #### CBC #### [facility] [address] [place] [address] Dr. Kavon Maldonado (RBC) [Mass/Vol]32.2 g/eGQwazze86.9-35.2The [facility] Charles HospitalComment on above:Performed By: #### CBC #### [facility] [address] [place] [address] Dr. Kavon Maldonado (RBC) [Entitic vol]88.7 pSLzvwfe26.0-99.0The [facility] Charles HospitalComment on above:Performed By: #### CBC #### [facility] [address] [place] [address] Dr. Kavon Coles #0.6 103/ulNormal0.3-0.8The St. Charles HospitalComment on above:Performed By: #### CBC #### [facility] [address] [address] [address] Kavon Johnsonocytes/100 WBC (Bld)3.6 %Normal1.7-12.0[facility] Comment on above:Performed By: #### CBC #### [facility] [address] [place] [address] Dr. Kavon HeltonUT #13.0 103/ulCritically high1.4-6.5[facility] Comment on above:Performed By: #### CBC #### [facility] [address] [place] [address] Dr. Kavon Heltonutrophils/100 WBC (Bld)75.9 %Critically high43.0-75.0The [facility] Charles HospitalComment on above:Performed By: #### CBC #### [facility] [address] [place] [address] Dr. Kavon CardenasPlatelet mean volume (Bld) [Entitic vol]10.4 fLNormal9.5-13.5The St. Charles HospitalComment on above:Performed By: #### CBC #### [facility] [address] [place] [address] Dr. Kavon CardenasPLT308 103/ukHovxmr964-221Sff St. Charles HospitalComment on above: Performed By: #### CBC #### [facility] [address] [place] [address] Dr. Kavon CardenasRBC3.99 106/ulCritically low4.20-5.40The St. Charles HospitalComment on above:Performed By: #### CBC #### [facility] [address] [place] [address] Dr. Kavon CardenasWBC17.1 103/ulCritically high4.0-11.0The [facility]. Charles HospitalComment on above:Performed By: #### CBC #### [facility] [address] [place] [address] Dr. Kavon CardenasGLUCOSE - [facility] 26-76-7844Roozwsb [Mass/Vol]139 mg/dLCritically uxds08-572KrbAccess Hospital DaytonComment on above:Performed By: #### FVPCR #### [facility] [address] [place] [address] Dr. Kavon Kennedy (CLEAN/CATCH) CHIEF MEDICAL OFFICER/MICRO IF IND.on 31-18-2940Pfbfzeupj Ql (U) NegativeNormalNEGATIVEAccess Hospital DaytonComment on above:Performed By: #### A1C #### [facility] [address] [address] [address] Kavon CardenasClarity (U)CLEARNormalCLEARAccess Hospital DaytonComment on above: Performed By: #### A1C #### [facility] [address] [place] [address] Dr. Kavon Bright (U)LT. YELLOWNormalYELLOWAccess Hospital DaytonComment on above:Performed By: #### A1C #### [facility] [address] [place] [address] Dr. Kavon CardenasGlucose Ql (U)NegativeNormalNEGATIVEAccess Hospital DaytonComment on above:Performed By: #### A1C #### [facility] [address] [place] [address] Dr. Kavon CardenasHemoglobin Ql (U)NegativeNormalNEGATIVECincinnati Children'S Hospital [facility] on above:Performed By: #### A1C #### [facility] [address] [place] [address] Dr. Kavon CardenasKetones Ql (U)NegativeNormalNEGATIVEAccess Hospital DaytonComment on above:Performed By: #### A1C #### [facility] [address] [place] [address] Dr. Kavon CardenasLEUKOCYTESNegativeNormalNEGATIVEAccess Hospital DaytonComhelen devos children's hospital on above:Performed By: #### A1C #### [facility] [address] [place] [address] Dr. Kavon CardenasNitrite Ql (U)NegativeNormalNEGATIVEAccess Hospital DaytonComment on above:Performed By: #### A1C #### [facility] [address] [place] [address] Dr. Kavon CardenaspH (U)5.5 [pH]Normal5-9Access Hospital DaytonComment on above: Performed By: #### A1C #### [facility] [address] [place] [address] Dr. Kavon CardenasSPEC GRAVITY>=1.019Kvwbxsin7.005-<=1.025[facility] Comment on above:Performed By: #### A1C #### [facility] [address] [place] [address] Dr. Kavon Kennedy PROTEINNegativeNormalNEGATIVE/ TRACEAccess Hospital Dayton Comment on above:Performed By: #### A1C #### [facility] [address] [place] [address] Dr. Kavon Zuleta MICRO INDNOT INDICATEDNormalThCincinnati VA Medical CenterComment on above:Performed By: #### A1C #### [facility] [address] [place] [address] Dr. Kavon CardenasUrobilinogen Qn (U)0.2 {Bee'U}/dLNormal0.2 - 1.0Access Hospital DaytonComment on above:Performed By: #### A1C #### [facility] [address] [place] [address] Dr. Kavon CardenasSmear to Pathologiston 27-17-4843Vbypl to Pathologist ELECTRONICALLY SIGNED. LUCY ACOSTA M.D.[facility] Comment on above:Performed By: #### PB, PATH, CDP, RETCT #### [facility] HospitalL[facility] [place] [address] Billet Bed Operator: Kahlil Suh, Bloodon 85-57-2121Iwtl, Blood11 ug/dL40 Torres StreetComment on above:Result Comment: Reference Ranges: All Ages 5 - [...] Exposure, Environmental Health Perspectives, 2007. Contact your [facility] Department of Health and/or applicable regulatory agency for specific guidance on medical management recommendations.Performed By: #### PB, PATH, CDP, RETCT #### [facility] [id number] Billet Bed Operator: Miguel Betancourt, [facility] with Auto Differentialon 16-16-1074Olpnzayj Eos #0.27[facility] MERCY HEALTHAbsolute Immature Granulocyte0.18[facility] HEALTHAbsolute Lymph #2.82[facility] HEALTHAbsolute [place] #0.95[facility] HEALTHBasophils (Bld) [#/Vol]0.04 10*3/uLBON SECOURS MERCY [facility]ALTH Basophils/100 WBC (Bld)0 %0 - 2 %[facility] HEALTHEosinophils/100 WBC (Bld)2 %1 - 4 %[facility] HEALTHHematocrit (Bld) [Volume fraction]35.9 % Low36.3 - 47.1 %[facility] HEALTHHemoglobin (Bld) [Mass/Vol]11.6 g/dLLow 11.9 - 15.1 g/dLBON SECOURS MERCY HEALTHImmature granulocytes/100 WBC (Bld)1 % Xexz3HJQ [facility] HEALTHLymphocytes/100 WBC (Bld)19 %Low24 - 43 %[facility] HEALTHMCH (RBC) [Entitic mass]29.0 pg25.2 - 33.[address] CHARLES HOSPITALHC (RBC) [Mass/Vol]32.3 g/dL28.4 - 34.8 g/dLBON SECMARTINS FERRY HOSPITALV (RBC) [Entitic vol]89.8 fL82.6 - 102.9 fLFORT BELVOIR COMMUNITY HOSPITAL Monocytes/100 WBC (Bld)6 %3 - 12 %[facility] COMMUNITY HOSPITALNRBC Automated0.00.0 per 100 WBCBON COMMUNITY REGIONAL MEDICAL CENTERPlatelet distribution width (Bld) [Ratio]14.6 %High11.8 - 14.4 %B[facility]IONAL MEDICAL CENTERPlatelet mean volume (Bld) [Entitic vol]10.5 fL8.1 - 13.5 fLBON [facility] HEALTHPlatelets (Bld) [#/Vol]294 10*3/uLBON COMMUNITY REGIONAL MEDICAL CENTERRBC (Bld) [#/Vol]4.00 10*6/uL3.95 - 5.11 m/uLBON COMMUNITY REGIONAL MEDICAL CENTERRBC (Bld) [#/Vol]ANISOCYTOSIS PRESENTBON COMMUNITY REGIONAL MEDICAL CENTERSegmented neutrophils/100 WBC (Bld)72 %High36 - 65 %B[facility] MEDICAL CENTERSegs Cabkjnah49.78HighBON COMMUNITY REGIONAL MEDICAL CENTERWBC (Bld) [#/Vol]15.0 10*3/uLHighBON COMMUNITY REGIONAL MEDICAL CENTERCBC with Diffon 34-22-8905Pdp. Basophil0.04 k/uLNormal0.00-0.20L[facility] HospitalComment on above:Performed By: #### PB, PATH, CDP, RETCT #### [employer] [address] [place] [address] Billet Bed Operator: MDAbs. AngeliImm.Granulocyte0.18 k/uLNormal0.00-0.30[facility] HospitalComment on above:Performed By: #### PB, PATH, CDP, RETCT #### [employer] [address] [place] [address] [id number] Billet Bed Operator: Miguel Madoff, MDAbs.Neutrophil (Seg)10.78 k/uLHigh1.50-8.10[facility] HospitalComment on above:Performed By: #### CATE, HARMONY, CDP, RETCT #### [facility] [employer] [address] [place] [address] Billet Bed Operator: Miguel Betancourt MDBasophils/100 WBC (Bld)0 %Normal0-2MCoalinga Regional Medical CenterComment on above:Performed By: #### PB, PATH, CDP, RETCT #### [facility] [employer] [address] [place] [address] Billet Bed Operator: Miguel Betancourt MDEosinophils (Bld) [#/Vol]0.27 10*3/uLNormal 0.00-0.44[facility] HospitalComment on above:Performed By: #### CATE, HARMONY, CDP, RETCT #### [facility] [employer] [address] [place] [address] Billet Bed Operator: PRITI Suhosinophils/100 WBC (Bld)2 %Normal1-4[facility] HospitalComment on above:Performed By: #### CATE, HARMONY, CDP, RETCT #### [facility] [employer] [address] [place] [address] Billet Bed Operator: Miguel Betancuort MDErythrocyte distribution width (RBC) [Ratio]14.6 %High11.8-14.4[facility] HospitalComment on above:Performed By: #### PB, PATH, CDP, RETCT #### [facility] [employer] [address] [place] [address] Billet Bed Operator: Miguel Betancourt MDHematocrit (Bld) [Volume fraction]35.9 %Low 36.3-47.1MCoalinga Regional Medical CenterComment on above:Performed By: #### PB, PATH, CDP, RETCT #### [facility] [employer] [address] [place] [address] Billet Bed Operator: Miguel Betancourt MDHemoglobin (Bld) [Mass/Vol]11.6 g/dLLow11.9-15.1 [facility] HospitalComment on above:Performed By: #### PB, PATH, CDP, RETCT #### [facility] [employer] [address] [place] [address] Billet Bed Operator: Bing Suhmature granulocytes/100 WBC (Bld)1 %Kqhp0ApsjzLancaster Municipal HospitalComment on above:Performed By: #### PB, PATH, CDP, RETCT #### [address] [address] Billet Bed Operator: Miguel Betancourt MDLymphocytes (Bld) [#/Vol]2.82 10*3/uLNormal 1.10-3.70[facility] HospitalComment on above:Performed By: #### CATE, PATH, CDP, RETCT #### [facility] [employer] [address] [place] [address] Billet Bed Operator: Joce Suhmphocytes/100 WBC (Bld)19 %Ato76-44NwxqjLancaster Municipal HospitalComment on above:Performed By: #### CATE, PATH, CDP, RETCT #### [facility] [employer] [address] [place] [address] Billet Bed Operator: ALEJANDRO SuhCH (RBC) [Entitic mass]29.0 fdXsxqrv73.2-33.5 [facility] HospitalComment on above:Performed By: #### PB, PATH, CDP, RETCT #### [facility] [employer] [address] [place] [address] Billet Bed Operator: ALEJANDRO SuhCHC (RBC) [Mass/Vol]32.3 g/uGFfudkt24.4-34.8 [facility] HospitalComment on above:Performed By: #### PB, PATH, CDP, RETCT #### [address] [address] Billet Bed Operator: ALEJANDRO SuhCV (RBC) [Entitic vol]89.8 zWDahoen26.6-102.9 [facility] HospitalComment on above:Performed By: #### PB, PATH, CDP, RETCT #### [address] [address] Billet Bed Operator: ALEJANDRO Suhonocytes (Bld) [#/Vol]0.95 10*3/uLNormal 0.10-1.20[facility] HospitalComment on above:Performed By: #### PB, PATH, CDP, RETCT #### [address] [address] Billet Bed Operator: ALEJANDRO Suhonocytes/100 WBC (Bld)6 %Normal3-12[facility] HospitalComment on above:Performed By: #### PB, PATH, CDP, RETCT #### [place] [address] Billet Bed Operator: Asmita Suhophil (Seg)72 %Gnoh76-42DqvurLancaster Municipal HospitalComment on above:Performed By: #### PB, PATH, CDP, RETCT #### [address] [address] Billet Bed Operator: EDWIN Suh Automated0.0 per 100 WBCNormal0.0L[facility] HospitalComment on above:Performed By: #### PB, PATH, CDP, RETCT #### [facility] [employer] [address] [place] [address] Billet Bed Operator: ANGELINA Suhlatelet mean volume (Bld) [Entitic vol]10.5 fL Normal8.1-13.5[facility] HospitalComment on above:Performed By: #### PB, PATH, CDP, RETCT #### [facility] [address] [place] [address] Billet Bed Operator: Davon Suh (Bld) [#/Vol]294 10*3/wJCnpwzt293-466 [facility] HospitalComment on above:Performed By: #### PB, PATH, CDP, RETCT #### [facility] [address] [place] [address] Billet Bed Operator: GREGORIO Suh (Bld) [#/Vol]4.00 10*6/uLNormal3.95-5.11 [facility] HospitalComment on above:Performed By: #### PB, PATH, CDP, RETCT #### [facility] [employer] [address] [place] [address] Billet Bed Operator: GREGORIO Suh morphology finding Nom (Bld)ANISOCYTOSIS PRESENTNoThe Jewish HospitalComment on above:Performed By: #### CATE, PATH, CDP, RETCT #### [facility] [employer] [address] [place] [address] Billet Bed Operator: ARLYN Suh (Bld) [#/Vol]15.0 10*3/uLHigh3.5-11.3MCoalinga Regional Medical CenterComment on above:Performed By: #### PB, PATH, CDP, RETCT #### [facility] [employer] [address] [place] [address] Billet Bed Operator: Sonny Suh Panel Informationon 32-19-2047Xxfyupcfkffyyr and review of laboratory resultsAbWinchester Medical Centeric Counton 46-61-1010Syqkkrec Retic0.090 M/uLHigh0.030-0.080[facility] HospitalComment on above:Performed By: #### PB, PATH, CDP, RETCT #### [facility] [employer] [address] [place] [address] [id number] Billet Bed Operator: Miguel Betancourt MDIRF24.100 %High2.7-18.3MCoalinga Regional Medical CenterComment on above:Performed By: #### PB, PATH, CDP, RETCT #### [facility] [place], [place] [id number] Billet Bed Operator: CURT Suhetic Count2.2 %High0.5-1.9[facility] HospitalComment on above:Performed By: #### PB, PATH, CDP, RETCT #### [facility] [address] [place] [id number] Billet Bed Operator: CURT Suhetic Rlkcwepksd59.8 koFfxvok98.2-35.7[facility] HospitalComment on above:Performed By: #### PB, PATH, CDP, RETCT #### [employer] [address] [place] [id number] Billet Bed Operator: CURT Suheticulocyteson 03-34-4536Qilwzuje Retic #0.090 HighBON COMMUNITY REGIONAL MEDICAL CENTERImmature Retic Fract24.1 %High2.7 - 18.3 %[facility] COMMUNITY HOSPITALRetic Zbfcfbhfhg35.8 pg28.2 - 35.7 pgBON COMMUNITY REGIONAL MEDICAL CENTERReticulocytes/100 RBC (Bld)2.2 %High0.5 - 1.9 %[facility] Surgical Pathologyon 81-94-5779Rxfbgyvd Pathology(NOTE) [id number] [facility] HOSPITALMedifacts International [facility] ANATOMIC PATHOLOGY [address] [place] [phone] SURGICAL PATHOLOGY CONSULTATION Patient Name: DILMA KAUR MR#: [id number] Specimen #[id number] Procedures/Addenda PERIPHERAL BLOOD REPORT Date Ordered: 10/12/2022 Status: Signed Out Date Complete: 10/12/2022 By: Lucy Acosta Date Reported: 10/12/2022 INTERPRETATION Peripheral blood: Slightly normocytic normochromic anemia with minimal anisopoikilocytosis. Leukocytosis with neutrophilia, with an otherwise normal morphology. Platelet morphology is unremarkable. RESULTS-COMMENTS PERIPHERAL BLOOD STUDY CBC: Please see the electronic health record for CBC parameters ([id number], 10/11/2022, 09:56). Note: The electronic health record is reviewed. Lucy Acosta Source: A: Peripheral BloodNoalLancaster Municipal HospitalComment on above: Performed By: #### PPPVS #### [facility] HospitalL[facility] [address] [place] [address] Billet Bed Operator: GLORY Suh ACOG PANEL 2: 21 to 29on 09-27-2022..Normal [facility] HospitalComment on above:Performed By: #### [id number] #### [facility] [address] [place] [address] Dr. Kavon CardenasAge Gdln ACOG Kmamlrk22-34DxpislEepProtestant HospitalComment on above:Performed By: #### [id number] #### [facility] [address] [place] [address] Dr. Kavon CardenasDIAGNOSIS:CommentNoProtestant HospitalComhelen devos children's hospital on above: Result Comment: NEGATIVE FOR INTRAEPITHELIAL LESION OR MALIGNANCY.Performed By: #### [id number] #### [facility] [address] [place] [address] Dr. Kavon CardenasMethodology:CommentNoVan Wert County Hospital on above: Result Comment: This liquid based ThinPrep(R) pap test was screened with the use of an image guided system.Performed By: #### [id number] #### [facility] [address] [place] [address] Dr. Kavon CardenasNote:CommentCleveland Clinic Euclid Hospital on above:Result Comment: The Pap smear is a screening test designed to aid in the detection of premalignant and malignant conditions of the uterine cervix. It is not a diagnostic procedure and should not be used as the sole means of detecting cervical cancer. Both false-positive and false-negative reports do occur. .Performed By: #### [id number] #### [facility] [address] [place] [address] Dr. Kavon CardenasPerformed by:CommentClermont County HospitalComhelen devos children's hospital on above: Result Comment: Chiara Hernandez Yarn Worker (ASCP)Performed By: #### [id number] #### [facility] [address] [place] [address] Dr. Kavon CardenasRefdestin Criteria:CommentCleveland Clinic Euclid Hospital on above:Result Comment: The HPV DNA reflex criteria were not met with this specimen result therefore, no HPV testing was performed. .Performed By: #### [id number] #### [facility] [address] [place] [address] Dr. Kavon CardenasSpecimen adequacy:CommentCleveland Clinic Euclid Hospital on above:Result Comment: Satisfactory for evaluation. No endocervical component is identified.Performed By: #### [id number] #### [facility] [address] [place] [address] Dr. Kavon CardenasCHLAMYDIA/GONOCOCCUS OLGA (SWAB/URINE/PAPon [id number] trachomatis, NAANegativeNormalNegativeAccess Hospital DaytonComment on above: Performed By: #### FVPCR #### [facility] [address] [place] [address] Dr. Kavon CardenasNeisseria gonorrhoeae, NAANegativeNormalNegativeAccess Hospital DaytonComment on above:Performed By: #### FVPCR #### [facility] [address] [place] [address] Dr. Kavon CardenasVAGINITIS/VAGINOSIS DNA PROBEon 89-59-2210Owrqnxk speciesNegative NormalNegativeAccess Hospital DaytonComment on above:Performed By: #### CARDIGM #### [facility] [address] [place] [address] Dr. Kavon Humphreydnerella vaginalisNegativeNormalNegativeAccess Hospital Dayton Comment on above:Performed By: #### CARDIGM #### [facility] [address] [place] [address] Dr. Kavon CardenasTrichomonas vaginalisNegativeNormalNegativeAccess Hospital Dayton Comment on above:Performed By: #### CARDIGM #### [facility] [address] [place] [address] Dr. Kavon Thorpe AUTO DIFFon [id number] #0.1 103/ulNormal0.0-0.1The St. Charles HospitalComment on above:Performed By: #### CBC #### [facility] [address] [place] [address] Dr. Kavon CardenasBasophils/100 WBC (Bld)0.3 %Normal0.2-2.0[facility] [place] Comment on above:Performed By: #### CBC #### [facility] [address] [place] [address] Dr. Kavon Underwood #0.1 103/ulNormal0.0-0.7The St. Charles HospitalComment on above: Performed By: #### CBC #### [facility] [address] [place] [address] Dr. Kavon Gaosinophils/100 WBC (Bld)0.6 %Critically low0.9-7.0The [facility]. Charles HospitalComment on above:Performed By: #### CBC #### [facility] [address] [place] [address] Dr. Kavon Garythrocyte distribution width (RBC) [Ratio]14.5 %Pfumkx96.0-15.0 Access Hospital DaytonComment on above:Performed By: #### CBC #### [facility] [address] [place] [address] Dr. Kavon CardenasHematocrit (Bld) [Volume fraction]35.2 %Critically low36.0-48.0 Access Hospital DaytonComment on above:Performed By: #### CBC #### [facility] [address] [place] [address] Dr. Kavon CardenasHemoglobin (Bld) [Mass/Vol]11.6 g/dLCritically low12.0-16.0Access Hospital DaytonComment on above:Performed By: #### CBC #### [facility] [address] [address] [address] Kavon Mosher #0.10 10e3/ulCritically high0.00-0.03The [facility] Comment on above:Performed By: #### CBC #### [facility] [address] [place] [address] Dr. Kavon Mosher %0.5 %Normal0.0-0.5The St. Charles HospitalComment on above: Performed By: #### CBC #### [facility] [address] [place] [address] Dr. Kavon DorseyClari #1.6 103/ulNormal1.2-3.8The St. Charles HospitalComment on above:Performed By: #### CBC #### [facility] [address] [place] [address] Dr. Kavon Nietohocytes/100 WBC (Bld)8.9 %Critically low20.5-60.0The [facility]. Charles HospitalComment on above:Performed By: #### CBC #### [facility] [address] [place] [address] Dr. Kavon SanchezUAL DIFF REQNONormalThe St. Charles HospitalComment on above: Performed By: #### CBC #### [facility] [address] [place] [address] Dr. Kavon Maldonado (RBC) [Entitic mass]28.7 llKlyagx46.7-34.0The St. Charles HospitalComment on above:Performed By: #### CBC #### [facility] [address] [place] [address] Dr. Kavon Maldonado (RBC) [Mass/Vol]33.0 g/lQMkgwpr63.9-35.2The [facility]. Charles HospitalComment on above:Performed By: #### CBC #### [facility] [address] [place] [address] Dr. Kavon Maldonado (RBC) [Entitic vol]87.1 vOEkdfzx97.0-99.0The [facility]. Charles HospitalComment on above:Performed By: #### CBC #### [facility] [address] [address] [address] Kavon Coles #0.9 103/ulCritically high0.3-0.8The [facility] Comment on above:Performed By: #### CBC #### [facility] [address] [place] [address] Dr. Kavon Johnsonocytes/100 WBC (Bld)4.8 %Normal1.7-12.0[facility] Comment on above:Performed By: #### CBC #### [facility] [address] [place] [address] Dr. Kavon Worley #15.5 103/ulCritically high1.4-6.5The [facility] Comment on above:Performed By: #### CBC #### [facility] [address] [place] [address] Dr. Kavon Heltonutrophils/100 WBC (Bld)84.9 %Critically high43.0-75.0The [facility]. Charles HospitalComment on above:Performed By: #### CBC #### [facility] [address] [place] [address] Dr. Kavon Vallejolet mean volume (Bld) [Entitic vol]10.4 fLNormal9.5-13.5The St. Charles HospitalComment on above:Performed By: #### CBC #### [facility] [address] [place] [address] Dr. Kavon CardenasPLT305 103/jxIbtxsj173-763Dwg St. Charles HospitalComment on above: Performed By: #### CBC #### [facility] [address] [place] [address] Dr. Kavon CardenasRBC4.04 106/ulCritically low4.20-5.40The St. Charles HospitalComment on above:Performed By: #### CBC #### [facility] [address] [place] [address] Dr. Kavon CardenasWBC18.3 103/ulCritically high4.0-11.0The St. Charles HospitalComment on above:Performed By: #### CBC #### [facility] [address] [place], [place] [id number] Dr. Kavon Conti CHEST WO W CONon 85-20-2531ASP CHEST WO W CONEXAMINATION: CTA CHEST WO W CON, 09/17/2022 1:56 [...] Electronically authenticated by: ALENA ELY Date: 2022-09-17 17:59NoProtestant HospitalCovid-19 PCR (CVDTBH)on 18-63-3903LIKC-CoV-2 (COVID-19) RNA OLGA+probe Ql (Unsp spec)Not detectedNormalNOT DETECTEDThe [facility] Comment on above:Result Comment: When diagnostic testing is negative, the [...] for this test is supported by the [place] of Health and Human Service's declaration that circumstances exist to justify the emergency use of in vitro diagnostics for the detection and/or diagnosis of the virus that causes COVID-19. This EUA will remain in effect for the duration of the COVID-19 declaration justifying emergency of IVDs, unless it is terminated or revoked by the FDA (after which the test may no longer be used).Performed By: #### BGLYIGM #### [facility] [address] [place] [address] Dr. Kavon Hills URINE PROFILEon 75-51-0619Rgrvcwajh Ql (U)NegativeNormal NEGATIVEAccess Hospital DaytonComment on above:Performed By: #### A1C #### [facility] [address] [place] [address] Dr. Kavon CardenasClarity (U)CLEARNormalCLEARAccess Hospital DaytonComment on above: Performed By: #### A1C #### [facility] [address] [place] [address] Dr. Kavon CardenasColor (U)YELLOWNormalYELLOWAccess Hospital DaytonComment on above: Performed By: #### A1C #### [facility] [address] [place] [address] Dr. Kavon Peña micrscopic examination will be performed if indicated. NormalAccess Hospital DaytonComment on above:Performed By: #### A1C #### [facility] [address] [place] [address] Dr. Kavon CardenasGlucose Ql (U)NegativeNormalNEGATIVEAccess Hospital DaytonComment on above:Performed By: #### A1C #### [facility] [address] [place] [address] Dr. Kavon CardenasHemoglobin Ql (U)NegativeNormalNEGATIVECincinnati Children'S Hospital [facility] on above:Performed By: #### A1C #### [facility] [address] [place] [address] Dr. Kavon CardenasKetones Ql (U)NegativeNormalNEGATIVEAccess Hospital DaytonComment on above:Performed By: #### A1C #### [facility] [address] [place] [address] Dr. Kavon CardenasLEUKOCYTESNegativeNormalNEGATIVEAccess Hospital DaytonComment on above:Performed By: #### A1C #### [facility] [address] [place] [address] Dr. Kavon Starr Ql (U)NegativeNormalNEGATIVEThe St. Charles HospitalComment on above:Performed By: #### A1C #### [facility] [address] [place] [address] Dr. Kavon CardenaspH (U)6.5 [pH]Normal5-9The St. Charles HospitalComment on above: Performed By: #### A1C #### [facility] [address] [place] [address] Dr. Kavon CardenasSPEC GRAVITY1.101Rpcvgj1.005-<=1.025The St. Charles HospitalComment on above:Performed By: #### A1C #### [facility] [address] [place] [address] Dr. Kavon Kennedy PROTEINNegativeNormalNEGATIVE/ TRACEThe [facility] Comment on above:Performed By: #### A1C #### [facility] [address] [place] [address] Dr. Kavon Zuleta MICRO INDNOT INDICATEDClermont County HospitalComment on above:Performed By: #### A1C #### [facility] [address] [place] [address] Dr. Kavon Melissa Qn (U)0.2 {Bee'U}/dLNormal0.2 - 1.0Access Hospital DaytonComment on above:Performed By: #### A1C #### [facility] [address] [place] [address] Dr. Kavon KhouryNZA A AND B AGon [id number] Brown Memorial HospitalComment on above:Result Comment: Negative for Flu A protein angiten. Infection due to Flu A cannot be ruled out. FluA angiten in the sample may be below the detection limit of the test.Performed By: #### FVPCR #### [facility] [address] [place] [address] Dr. Kavon CardenasINFLUBNEGHSEE [facility] HospitalComment on above: Result Comment: Negative for Flu B protein antigen. Infection due to Flu B cannot be ruled out. FluB antigen in the sample may be below the detection limit of the test.Performed By: #### FVPCR #### [facility] [address] [place] [address] Dr. Kavon Head AGNegativeNormalNEGATIVE SEE COMMENTThe St. Charles HospitalComment on above:Performed By: #### FVPCR #### [facility] [address] [place] [address] Dr. Kavon Palmer AGNegativeNormalNEGATIVE SEE COMMENTThe St. Charles HospitalComment on above:Performed By: #### FVPCR #### [facility] [address] [place] [address] Dr. Kavon Peterson 14(COMP METB)on 07-27-8943Zholglj [Mass/Vol]3.1 g/dL Critically low3.4-5.0The St. Charles HospitalComment on above:Performed By: #### CARDIGM #### [facility] [address] [place] [address] Dr. Kavon CardenasAlbumin/Globulin [Mass ratio]0.8 {ratio}NormalThe St. Charles HospitalComment on above:Performed By: #### CARDIGM #### [facility] [address] [place] [address] Dr. Kavon Izaguirre [Catalytic activity/Vol]100 U/UDpmocg05-172Hcb St. Charles HospitalComment on above:Performed By: #### CARDIGM #### [facility] [address] [place] [address] Dr. Kavon Watts [Catalytic activity/Vol]30 U/IJymxba18-42Hhi St. Charles HospitalComment on above:Performed By: #### CARDIGM #### [facility] [address] [place] [address] Dr. Kavon Bolton gap [Moles/Vol]14.0 mmol/LNormalThe [facility] Comment on above:Performed By: #### CARDIGM #### [facility] [address] [place] [address] Dr. Yilan ChangAST [Catalytic activity/Vol]17 U/OVginpy35-86Zfv St. Charles HospitalComment on above:Performed By: #### CARDIGM #### [facility] [address] [place] [address] Dr. Kavon CardenasBilirubin [Mass/Vol]0.1 mg/dLCritically low0.2-1.0The [facility]. Charles HospitalComment on above:Performed By: #### CARDIGM #### [facility] [address] [place] [address] Dr. Kavon CardenasCalcium [Mass/Vol]8.8 mg/dLNormal8.5-10.1The [facility] Comment on above:Performed By: #### CARDIGM #### [facility] [address] [place] [address] Dr. Kavon CardenasChloride [Moles/Vol]105 mmol/RPowdrw92-959Uix [facility] Comment on above:Performed By: #### CARDIGM #### [facility] [address] [place] [address] Dr. Kavon CardenasCO2 [Moles/Vol]22.7 mmol/YPnfmay96.0-32.0The [facility] Comment on above:Performed By: #### CARDIGM #### [facility] [address] [place] [address] Dr. Kavon CardenasCreatinine [Mass/Vol]0.65 mg/dLNormal0.55-1.02The [facility]. Charles HospitalComment on above:Performed By: #### CARDIGM #### [facility] [address] [place] [address] Dr. Kavon GaGFR-AF SAMOAN>60Normal>=60The St. Charles HospitalComment on above:Performed By: #### CARDIGM #### [facility] [address] [place] [address] Dr. Kavon GaGFR-NON AF SAMOAN>60Normal>=60The [facility]. Charles HospitalComment on above:Performed By: #### CARDIGM #### [facility] [address] [place] [address] Dr. Kavon CardenasGlobulin (S) [Mass/Vol]4.0 g/dLNormalThCincinnati VA Medical CenterComment on above:Performed By: #### CARDIGM #### [facility] [address] [place] [address] Dr. Kavon CardenasGlucose [Mass/Vol]100 mg/jAStyadj87-085PcxAccess Hospital Dayton Comment on above:Performed By: #### CARDIGM #### [facility] [address] [place] [address] Dr. Kavon CardenasPotassium [Moles/Vol]3.7 mmol/LNormal3.5-5.1The [facility] Comment on above:Performed By: #### CARDIGM #### [facility] [address] [place] [address] Dr. Kavon CardenasProtein [Mass/Vol]7.1 g/dLNormal6.4-8.2[facility] Comment on above:Performed By: #### CARDIGM #### [facility] [address] [place] [address] Dr. Kavon CardenasSodium [Moles/Vol]138 mmol/EObjmvl096-600NanAccess Hospital Dayton Comment on above:Performed By: #### CARDIGM #### [facility] [address] [place] [address] Dr. Kavon CardenasUrea nitrogen [Mass/Vol]6.0 mg/dLCritically low7.0-18.0Access Hospital DaytonComment on above:Performed By: #### CARDIGM #### [facility] [address] [place] [address] Dr. Kavon CardenasUrea nitrogen/Creatinine [Mass ratio]9.2 mg/mgNoalThCincinnati VA Medical CenterComment on above:Performed By: #### CARDIGM #### [facility] [address] [place] [address] Dr. Kavon CardenasPROTIMEon [id number] Coag (PPP) [Relative time]{INR}NormalAccess Hospital DaytonComment on above:Performed By: #### A1C #### [facility] [address] [place] [address] Dr. Kavon Dsouza GUIDELINESSEE BELOWClermont County HospitalComment on above:Result Comment: DESIRED INR: 2.0 - 3.0 CONDITIONS NOT LISTED BELOW 2.5 - 3.5 FOR PROSTHETIC HEART VALVE REPLACEMENT 2.5 - 3.5 RECURRENT THROMBOSIS Performed By: #### A1C #### [facility] [address] [place] [address] Dr. Kavon CardenasPT Coag (PPP) [Time]9.3 sNormal9.0-11.6ThCincinnati VA Medical Center Comment on above:Performed By: #### A1C #### [facility] [address] [place] [address] Dr. Kavon Pierre [id number] Coag (Bld) [Time]24.8 wSssvyt05.3-36.2Select [facility]ty Hospital - Akronment on above:Performed By: #### CARDIGM #### [facility] [address] [place] [address] Dr. Kavon Lind, HIGH SENSITIVITYon 27-79-7850IBSKCD<4.6Hzygla2.0-51.[address] [facility] HospitalComhelen devos children's hospital on above:Result Comment: CUT-OFF POINTS HAVE BEEN ESTABLISHED BASED ON THE FOURTH UNIVERSAL DEFINITIONS OF MYOCARDIAL INFARCTION. THE UPPER REFERENCE LIMIT (URL) OF TROPONIN, DEFINED THE 99TH PERCENTILE OF cTnI DISTRIBUTION IN A REFERENCE POPULATION, HAS BEEN CONFIRMED THE DECISION THRESHOLD FOR CT DIAGNOSIS.Performed By: #### A1C #### [facility] [address] [place] [address] Dr. Kavon CardenasXR CHEST 1 Von [id number] CHEST 1 VEXAMINATION: XR CHEST 1 V HISTORY: Chest pain COMPARISON: None. TECHNIQUE: Portable chest FINDINGS: The lung parenchyma is free of consolidation or infiltrate. No pneumothorax or pleural effusion. The cardiac, mediastinal and hilar contours are normal. The visualized osseous structures exhibit no gross abnormality. IMPRESSION: Normal chest x-ray Electronically authenticated by: JORDAN ALVES Date: 2022-09-17 16:39Clermont County HospitalGLUCOSE - 1HRon 94-67-7926Dqpoiln [Mass/Vol]112 mg/dLCritically nxqb09-542Ypw Cody HospitalComment on above:Performed By: #### GLU1HR #### [facility] [address] [address] [address] Kavon CardenasPT Mutation 80-08-9070FZ [id number] VARIANTNegativeNormal Lancaster Municipal HospitalComment on above:Result Comment: (NOTE) Indication for testing: Assess genetic risk for thrombosis. NEGATIVE: The Factor II, prothrombin P32948H mutation, was not detected. Other causes of [...] M.D., Ph.D. 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 PATHOGENIC VARIANT TESTED: F2 c.*97G>A (B84187B). CLINICAL SENSITIVITY FOR VENOUS THROMBOSIS: Approximately 10 percent. METHODOLOGY: Polymerase chain reaction and fluorescence monitoring. ANALYTICAL SENSITIVITY AND SPECIFICITY: 99 percent. LIMITATIONS: Diagnostic errors can occur due to rare sequence variations. F2 gene variants, other than c.*97G>A (X54920K), will not be detected. This test was developed and its performance characteristics determined by [employer]. It has not been cleared or approved by the [place] Food and Drug Administration. This test was performed in a CLIA certified laboratory and is intended for clinical purposes. Counseling and informed consent are recommended for genetic testing. Consent forms are available online. Performed by [employer], [address] [place] [id number] [email or web address], Osito Barnett MD, PHD, Lab. DirectorPerformed By: #### PB #### [address] [address] Billet Bed Operator: Miguel Betancourt MD #### APTMUT #### [address] [id number] Billet Bed Operator: Nikhil Barragan MD #### AAFPM #### [address] [address] Billet Bed Operator: Miguel Betancourt MD [address] [id number] Billet Bed Operator: DELORES Persaud PCR SPECIMENWhole [facility] Fairfield HospitalComment on above:Performed By: #### PB #### [address] [address] Billet Bed Operator: Miguel Betancourt MD #### APTMUT #### [address] [address] Billet Bed Operator: Nikhil Barragan MD #### AAFPM #### [address] [address] Billet Bed Operator: Miguel Betancourt MD [address] [address] Billet Bed Operator: Nikhil Barragan MDA, Maternalon 71-77-0730Pswlboqqmy byKindred HealthcareComment on above:Performed By: #### PB #### [facility] [address] [place] [address] Billet Bed Operator: Miguel Betancourt MD #### APTMUT #### [facility] [address] [place] [address] Billet Bed Operator: Nikhil aBrragan MD #### AAFPM #### [facility] [address] [place] [address] Billet Bed Operator: Miguel Betancourt MD [facility] [address] [place] [address] Billet Bed Operator: JERRY PersaudSelect Medical OhioHealth Rehabilitation Hospital - DublinComment on above:Result Comment: Results for Estimated Due Date: 02 14 23Performed By: #### PB #### [facility] [address] [place] [address] Billet Bed Operator: Miguel Betancourt MD #### APTMUT #### [facility] [address] [place] [address] Billet Bed Operator: Nikhil Barragan MD #### AAFPM #### [facility] [address] [place] [address] Billet Bed Operator: Miguel Betancourt MD [facility] [address] [place] [address] Billet Bed Operator: Nikhil Barragan MDOur Lady of Mercy HospitalComment on above:Performed By: #### PB #### [facility] [address] [place] [address] Billet Bed Operator: Miguel Betancourt MD #### APTMUT #### [facility] [address] [place] [address] Billet Bed Operator: Nikhil Barragan MD #### AAFPM #### [facility] [address] [place] [address] Billet Bed Operator: Miguel Betancourt MD [facility] [address] [place] [address] Billet Bed Operator: Nikhil Barragan MDGestat Age (exact)17 wks, 0 daysMercy Health Anderson HospitalComment on above:Performed By: #### PB #### [facility] [address] [address] Billet Bed Operator: Miguel Betancourt MD #### APTMUT #### [facility] [address] [place] [address] Billet Bed Operator: Nikhil Barragan MD #### AAFPM #### [address] [address] Billet Bed Operator: Miguel Betancourt MD [address] [address] Billet Bed Operator: Nikhil Barragan MDIns ReMagruder HospitalComment on above:Performed By: #### PB #### [facility] [address] [place] [address] Billet Bed Operator: Miguel Betancourt MD #### APTMUT #### [facility] [address] [place] [address] Billet Bed Operator: Nikhil Barragan MD #### AAFPM #### [address] [address] Billet Bed Operator: Miguel Betancourt MD [facility] [address] [place] [address] Billet Bed Operator: Nikhil Barragan MDInterpretationScreen NegMercy Health Anderson HospitalComment on above:Result Comment: (NOTE) INTERPRETATION: SCREEN NEGATIVE for open spina bifida Neural Tube Defects (NTD) Negative Pre-Test Post-Test Cutoff Neural Tube Defects Risks 1:1030 < 1:62064 1:250 Comments: The risk of an open neural tube defect is less than the screening cut-off. This test was developed and its performance characteristics determined by [employer]. It has not been cleared or approved by the [place] Food and Drug Administration. This test was performed in a CLIA certified laboratory and is intended for clinical purposes.Performed By: #### PB #### [facility] [address] [place] [address] Billet Bed Operator: Miguel Betancourt MD #### APTMUT #### [facility] [address] [place] [address] Billet Bed Operator: Nikhil Barragan MD #### AAFPM #### [address] [address] Billet Bed Operator: Miguel Betancourt MD [address] [address] Billet Bed Operator: Abdias Persaudternal Age at Del30.2 yrMercy Health Anderson HospitalComment on above:Performed By: #### PB #### [facility] [address] [place] [address] Billet Bed Operator: Miguel Betancourt MD #### APTMUT #### [facility] [address] [place] [address] Billet Bed Operator: Nikhil Barragan MD #### AAFPM #### [address] [address] Billet Bed Operator: Miguel Betancourt MD [facility] [address] [place] [address] Billet Bed Operator: Abdias Persaudternal RaceNonblackMercy Health Anderson HospitalComment on above:Performed By: #### PB #### [facility] [address] [place] [address] Billet Bed Operator: Miguel Betancourt MD #### APTMUT #### [facility] [address] [place] [address] Billet Bed Operator: Nikhil Barragan MD #### AAFPM #### [address] [place] [address] Billet Bed Operator: Miguel Betancourt MD [facility] [address] [place] [address] Billet Bed Operator: Abdias Persaudlos angeles community hospital Lkqsib893.0 lbs.Mercy Health Anderson HospitalComment on above:Performed By: #### PB #### [facility] [address] [place] [address] Billet Bed Operator: Miguel Betancourt MD #### APTMUT #### [facility] [address] [place] [address] Billet Bed Operator: Nikhil Barragan MD #### AAFPM #### [facility] [address] [place] [address] Billet Bed Operator: Miguel Betancourt MD [facility] [address] [place] [address] Billet Bed Operator: ALEJANDRO PersaudoM for AFP0.93Mercy Health Anderson HospitalComment on above:Performed By: #### PB #### [facility] [address] [place] [address] Billet Bed Operator: Miguel Betancourt MD #### APTMUT #### [facility] [address] [place] [address] Billet Bed Operator: Nikhil Barragan MD #### AAFPM #### [facility] [address] [place] [address] Billet Bed Operator: Miguel Betancourt MD [facility] [address] [place] [address] Billet Bed Operator: Nikhil Barragan MDNumber of FetusesSingletonMercy Health Anderson HospitalComment on above:Performed By: #### PB #### [facility] [address] [place] [address] Billet Bed Operator: Miguel Betancourt MD #### APTMUT #### [facility] [address] [place] [address] Billet Bed Operator: Nikhil Barragan MD #### AAFPM #### [facility] [address] [place] [address] Billet Bed Operator: Miguel Betancourt MD [facility] [address] [place] [address] Billet Bed Operator: Clifton Persaud [facility]27 /Wyandot Memorial HospitalComment on above:Performed By: #### PB #### [facility] [address] [place] [address] Billet Bed Operator: Miguel Betancourt MD #### APTMUT #### [facility] [address] [place] [address] Billet Bed Operator: Nikhil Barragan MD #### AAFPM #### [facility] [address] [place] [address] Billet Bed Operator: Miguel Betancourt MD [facility] [address] [place] [address] Billet Bed Operator: Ngozi PersaudSouthcoast Behavioral Health HospitalsarahKindred Hospital DaytonComment on above:Performed By: #### PB #### [facility] [address] [place] [address] Billet Bed Operator: Miguel Betancourt MD #### APTMUT #### [facility] [address] [place] [address] Billet Bed Operator: Nikhil Barragan MD #### AAFPM #### [facility] [address] [place] [address] Billet Bed Operator: Miguel Betancourt MD [facility] [address] [place] [address] Billet Bed Operator: Naty Persadu Kindred Hospital DaytonComment on above:Result Comment: (NOTE) Initial sample Performed by [employer], [address] [place] [address] www.[employer], Osito Barnett MD, PHD, Lab. DirectorPerformed By: #### PB #### [facility] [address] [address] Billet Bed Operator: Miguel Betancourt MD #### APTMUT #### [facility] [address] [place] [address] Billet Bed Operator: Nikhil Barragan MD #### AAFPM #### [address] [address] Billet Bed Operator: Miguel Betancourt MD [address] [address] Billet Bed Operator: Nikhil Barragan MDA, [facility] [id number] Smoking INFORMATION NOT PROVIDEDMercy Health Anderson HospitalComment on above: Performed By: #### PB #### [facility] [address] [address] Billet Bed Operator: Miguel Betancourt MD #### APTMUT #### [facility] [address] [place] [address] Billet Bed Operator: Nikhil Barragan MD #### AAFPM #### [address] [address] Billet Bed Operator: Miguel Betancourt MD [address] [address] Billet Bed Operator: JERRY PersaudMiddletown Hospital Comment on above:Performed By: #### PB #### [facility] [address] [address] Billet Bed Operator: Miguel Betancourt MD #### APTMUT #### [facility] [address] [place] [address] Billet Bed Operator: Nikhil Barragan MD #### AAFPM #### [facility] [address] [place] [address] Billet Bed Operator: Miguel Betancourt MD [facility] [address] [place] [address] Billet Bed Operator: JERRY PersaudiabeticNegativeMercy Health Anderson HospitalComment on above:Performed By: #### PB #### [facility] [address] [place] [address] Billet Bed Operator: Miguel Betancourt MD #### APTMUT #### [facility] [address] [place] [address] Billet Bed Operator: Nikhil Barragan MD #### AAFPM #### [facility] [address] [place] [address] Billet Bed Operator: Miguel Betancourt MD [facility] [address] [place] [address] Billet Bed Operator: JERRY Persaudonor EggINFORMATION NOT PROVIDEDMercy Health Anderson HospitalComment on above:Performed By: #### PB #### [facility] [address] [place] [address] Billet Bed Operator: Miguel Betancourt MD #### APTMUT #### [facility] [address] [place] [address] Billet Bed Operator: Nikhil Barragan MD #### AAFPM #### [facility] [address] [place] [address] Billet Bed Operator: Miguel Betancourt MD [facility] [address] [place] [address] Billet Bed Operator: Nikhil Barragan MDEstimated Due [id number] Health Anderson HospitalComment on above:Performed By: #### PB #### [facility] [address] [place] [address] Billet Bed Operator: Miguel Betancourt MD #### APTMUT #### [facility] [address] [place] [address] Billet Bed Operator: Nikhil Barragan MD #### AAFPM #### [address] [address] Billet Bed Operator: Miguel Betancourt MD [facility] [address] [place] [address] Billet Bed Operator: Nikhil Barragan MDHouse Of The Good Samaritan HistoryHenry County HospitalComment on above:Performed By: #### PB #### [address] [address] Billet Bed Operator: Miguel Betancourt MD #### APTMUT #### [facility] [address] [place] [address] Billet Bed Operator: Nikhil Barragan MD #### AAFPM #### [address] [address] Billet Bed Operator: Miguel Betancourt MD [facility] [address] [place] [address] Billet Bed Operator: Nikhil Barragan MDJackson Purchase Medical Center FertalizatINFORMATION NOT [facility] Medical Center – MadrasComment on above:Performed By: #### PB #### [facility] [address] [place] [address] Billet Bed Operator: Miguel Betancourt MD #### APTMUT #### [facility] [address] [place] [address] Billet Bed Operator: Nikhil Barragan MD #### AAFPM #### [facility] [address] [place] [address] Billet Bed Operator: Miguel Betancourt MD [facility] [address] [place] [address] Billet Bed Operator: Nikhil Barragan MDDesert Regional Medical [id number] Health Anderson HospitalComment on above:Performed By: #### PB #### [facility] [address] [place] [address] Billet Bed Operator: Miguel Betancourt MD #### APTMUT #### [facility] [address] [place] [address] Billet Bed Operator: Nikhil Barragan MD #### AAFPM #### [facility] [address] [place] [address] Billet Bed Operator: Miguel Betancourt MD [facility] [address] [place] [address] Billet Bed Operator: Abdias Persaudlos angeles community hospital [id number] Health Anderson HospitalComment on above:Performed By: #### PB #### [facility] [address] [place] [address] Billet Bed Operator: Miguel Betancourt MD #### APTMUT #### [facility] [address] [place] [address] Billet Bed Operator: Nikhil Barragan MD #### AAFPM #### [facility] [address] [place] [address] Billet Bed Operator: Miguel Betancourt MD [facility] [address] [place] [address] Billet Bed Operator: Abdias Persaudlos angeles community hospital [id number] Health Anderson HospitalComment on above:Performed By: #### PB #### [facility] [address] [place] [address] Billet Bed Operator: Miguel Betancourt MD #### APTMUT #### [facility] [address] [place] [address] Billet Bed Operator: Nikhil Barragan MD #### AAFPM #### [facility] [address] [place] [address] Billet Bed Operator: Miguel Betancourt MD [facility] [address] [place] [address] Billet Bed Operator: ALEJANDRO Persaudmusechorionic TwinsINFORMATION NOT [facility] – MadrasComment on above:Performed By: #### PB #### [facility] [address] [place] [address] Billet Bed Operator: Miguel Betancourt MD #### APTMUT #### [facility] [address] [place] [address] Billet Bed Operator: Nikhil Barragan MD #### AAFPM #### [facility] [address] [place] [address] Billet Bed Operator: Miguel Betancourt MD [facility] [address] [place] [address] Billet Bed Operator: Raghav Persaud ACMC Healthcare SystemComment on above:Performed By: #### PB #### [facility] [address] [place] [address] Billet Bed Operator: Miguel Betancourt MD #### APTMUT #### [facility] [address] [place] [address] Billet Bed Operator: Nikhil Barragan MD #### AAFPM #### [facility] [address] [place] [address] Billet Bed Operator: iMguel Betancourt MD [facility] [address] [place] [address] Billet Bed Operator: Joan Persaud Newark HospitalComment on above:Performed By: #### PB #### [facility] [address] [place] [address] Billet Bed Operator: Miguel Betancourt MD #### APTMUT #### [facility] [address] [place] [address] Billet Bed Operator: Nikhil Barragan MD #### AAFPM #### [address] [address] Billet Bed Operator: Miguel Betancourt MD [facility] [address] [place] [address] Billet Bed Operator: Ara Persaud SpecimenINFORMATION NOT PROVIDEDSouthern [place] Medical CenterComment on above:Performed By: #### PB #### [facility] [address] [place] [address] Billet Bed Operator: Miguel Betancourt MD #### APTMUT #### [facility] [address] [place] [address] Billet Bed Operator: Nikhil Barragan MD #### AAFPM #### [address] [address] Billet Bed Operator: Miguel Betancourt MD [facility] [address] [place] [address] Billet Bed Operator: Nikhil Barragan MDValproic/CarbamazepINFORMATION NOT PROVIDEDSouthern [place] Medical CenterComment on above:Performed By: #### PB #### [address] [address] Billet Bed Operator: Miguel Betancourt MD #### APTMUT #### [facility] [address] [place] [address] Billet Bed Operator: Nikhil Barragan MD #### AAFPM #### [address] [address] Billet Bed Operator: Miguel Betancourt MD [facility] [address] [place] [address] Billet Bed Operator: Nikhil Barragan MDLebrook, Bloodon [id number], Blood7 ug/dLHigh0-4 [facility] HospitalComment on above:Result Comment: Reference Ranges: All Ages 5 - [...] Exposure, Environmental Health Perspectives, 2007. Contact your [facility] Department of Health and/or applicable regulatory agency for specific guidance on medical management recommendations.Performed By: #### PB #### [employer] [address] [place] [address] Billet Bed Operator: Miguel Betancourt MD #### APTMUT #### [facility] [address] [place] [address] Billet Bed Operator: Nikhil Barragan MD #### AAFPM #### [facility] [address] [place] [address] Billet Bed Operator: Miguel Betancourt MD [facility] [address] [place] [address] Billet Bed Operator: PIYUSH Persaudytogeneticson [id number](NOTE) Specimen(s) Received: Peripheral blood Clinical Information: Recurrent [...] Professional component performed by Raissa Espinal, Ph.D., [facility], [facility] [address], [place], [place] (CLIA #: [id number]). Electronically Signed Out Raissa Espinal, Ph.D., F.A.C.M.G. [facility]ST[facility] CL[facility]ICAL CYTOGENETICS LABORAT[facility] [address] [place] [phone] CHROMOSOME STUDY CONSULTATION REPORT [facility] DNA DiagnosticsMercy Health Anderson HospitalComment on above:Performed By: #### [facility] #### [address] [address] Billet Bed Operator: Miguel Betancourt, [facility] IDABELytogenetics(NOTE) Specimen(s) Received: PERIPHERAL BLOOD, MICROARRAY Clinical Information: Recurrent Loss with Current RESULTS: Diagnosis: [facility] Microarray Result: arr[hg19](1-22,X)x2 Normal Female SNP Microarray Result:arr[hg19](1-22,X)x2 Normal Female INTERPRETATION: Microarray analysis was performed [...] Test Details Platform Affymetrix CytoScanHD NetAffx Build [id number] (hg19) No. Oligo Probes 1.7M No. SNPs 750K Chip ID [id number] Method: Whole-genome array based comparative genomic hybridization [...] Chromosome Analysis Suite ([place]), was developed by [employer] in [place], [place]. This software package enables viewing results data (CYCHP, XNCHP, and OSCHP files) and summarization of chromosomal aberrations across the Genome-Wide Human SNP 6.0 Array. The software allows direct access to external databases such as NCBI, UCSC Genome Browser, Ensembl, ClinVar and OMIM. Disclaimer: This oligonucleotide and SNP aCGH test was developed and its performance determined by [employer]. The microarray detects chromosomal aneuploidy in addition [...] be regarded as investigational or for research. [facility] is certified under the Clinical Laboratory Improvement Amendments of 1988 (CLIA-88) as qualified to perform high complexity clinical laboratory testing. The technical component of this analysis was performed at [employer]; analysis and interpretation are provided at [facility] by a board-certified clinical rat trapper with additional training in chromosome microarray analysis. Professional component performed by Raissa Espinal, Ph.D., [facility], [facility], [place], [place] (CLIA #: [id number]). Electronically Signed Out Raissa Espinal, Ph.D., F.A.C.MEverton [facility] DNA DIAGNOSTICS CLINICAL CYTOGENETICS LABORATORY [address] [place], [place] [address] MICROARRAY CONSULTATION REPORT [facility] i[employer] [facility]ita Health SystemComment on above:Performed By: #### PPPMA #### [address] [address] Billet Bed Operator: SUSHIL Suh BOX TEST PT SEND OUTon [id number] TO REF LAB07/31/2022Clermont County HospitalComment on above:Performed By: #### CBC #### [facility] [address] [place], [place] [address] Dr. Kavon Yañez PREG TVon [id number] PREG TV Begin Addendum #1 Correction to voice-recognition error: Age by LMP: [...] 8 weeks 5 days with normal heartbeat. NormalThe [facility] C VIRUS AB W/ REFLEX QUANTon [id number] AB<0.7Fiwqvz5.0-0.9The [facility] on above:Performed By: #### CBC #### [facility] [address] [place] [address] Dr. Kavon CardenasInterpretation:CommentNormalThe [facility] on above:Result Comment: Negative Not infected with HCV, unless recent infection is suspected or other evidence exists to indicate HCV infection.Performed By: #### CBC #### [facility] [address] [place] [address] Dr. Kavon Velarde B SURFACE ANTIGEN SCREENon [id number] ScreenNegative NormalNegativeThe [facility] on above:Performed By: #### CBC #### [facility] [address] [place] [address] [address] Kavon Christine 1 AND 2 WITH REFLEXon [id number] Screen 4th Generation wRfxNon-ReactiveNormalNon ReactiveThe St. Charles HospitalComhelen devos children's [facility] on above:Result Comment: HIV Negative HIV-1/HIV-2 antibodies and HIV-1 p24 antigen were NOT detected. There is no laboratory evidence of HIV infection.Performed By: #### CBC #### [facility] [address] [place] [address] Dr. Kavon Jonas QUANTon [id number] Plasma Reagin, QuantNon-Reactive NormalNonRea<1:1The [facility] on above:Result Comment: Please Note: This test does not meet current guidelines for screening and diagnosis of syphilis. This test is intended for following treatment response in patients being treated for syphilis infection. To screen for syphilis infection, a reflex cascade that includes both RPR and a treponema-specific assay should be utilized, such as Treponema pallidum (Syphilis) Screening [place] (075131) or Rapid Plasma Reagin (RPR) Test With Reflex to Quantitative RPR and Confirmatory Treponema pallidum Antibodies (726443).Performed By: #### A1C #### [facility] [address] [place] [address] Dr. Kavon Becerra AB IGGon 76-70-1465Qugfvov Antibodies, IgG1.77 index NormalImmune >0.99The St. Charles HospitalComment on above:Result Comment: Non- immune <0.90 Equivocal 0.90 - 0.99 Immune >0.99Performed By: #### RUBIGG #### [facility] [address] [place] [address] Dr. Kavon Thorpe AUTO DIFFon 15-07-1497OQHN #0.1 103/ulNormal0.0-0.1The [facility] Charles HospitalComment on above:Performed By: #### FVPCR #### [facility] [address] [place] [address] Dr. Kavon CardenasBasophils/100 WBC (Bld)0.5 %Normal0.2-2.0[facility] Comment on above:Performed By: #### FVPCR #### [facility] [address] [place] [address] Dr. Kavon Underwood #0.8 103/ulCritically high0.0-0.7The St. Charles HospitalComment on above:Performed By: #### FVPCR #### [facility] [address] [place] [address] Dr. Kavon Gaosinophils/100 WBC (Bld)5.7 %Normal0.9-7.0The [facility] Comment on above:Performed By: #### FVPCR #### [facility] [address] [place] [address] Dr. Kavon Garythrocyte distribution width (RBC) [Ratio]14.2 %Zqgqlk25.0-15.[address] Charles HospitalComment on above:Performed By: #### FVPCR #### [facility] [address] [place] [address] Dr. Kavon CardenasHematocrit (Bld) [Volume fraction]39.2 %Jaeqxz40.0-48.0The [facility] Charles HospitalComment on above:Performed By: #### FVPCR #### [facility] [address] [place] [address] Dr. Kavon CardenasHemoglobin (Bld) [Mass/Vol]12.9 g/sCHropns15.0-16.0The [facility] HospitalComment on above:Performed By: #### FVPCR #### [facility] [address] [place] [address] Dr. Kavon CardenasIG #0.09 10e3/ulCritically high0.00-0.03The [facility] Comment on above:Performed By: #### FVPCR #### [facility] [address] [place] [address] Dr. Kavon CardenasIG %0.6 %Critically high0.0-0.5The [facility] Charles HospitalComment on above:Performed By: #### FVPCR #### [facility] [address] [place] [address] Dr. Kavon Macias #2.7 103/ulNormal1.2-3.8The [facility] Charles HospitalComment on above:Performed By: #### FVPCR #### [facility] [address] [place] [address] Dr. Kavon Dorseymphocytes/100 WBC (Bld)18.3 %Critically low20.5-60.0The [facility] Charles HospitalComment on above:Performed By: #### FVPCR #### [facility] [address] [place] [address] Dr. Kavon CardenasMANUAL DIFF REQNONormalThe St. Charles HospitalComment on above: Performed By: #### FVPCR #### [facility] [address] [place] [address] Dr. Kavon Long (RBC) [Entitic mass]28.2 leDewcpm48.7-34.0The [facility] Charles HospitalComment on above:Performed By: #### FVPCR #### [facility] [address] [place] [address] Dr. Kavon MaldonadoHC (RBC) [Mass/Vol]32.9 g/ePBqyxjm35.9-35.2The [facility] Charles HospitalComment on above:Performed By: #### FVPCR #### [facility] [address] [place] [address] Dr. Kavon MaldonadoV (RBC) [Entitic vol]85.8 hFYvmuin23.0-99.0The [facility] HospitalComment on above:Performed By: #### FVPCR #### [facility] [address] [place] [address] Dr. Kavon Coles #0.7 103/ulNormal0.3-0.8The [facility] Charles HospitalComment on above:Performed By: #### FVPCR #### [facility] [address] [place] [address] Dr. Kavon Johnsonocytes/100 WBC (Bld)4.9 %Normal1.7-12.0[facility] Comment on above:Performed By: #### FVPCR #### [facility] [address] [place] [address] Dr. Kavon Worley #10.4 103/ulCritically high1.4-6.5The [facility] Comment on above:Performed By: #### FVPCR #### [facility] [address] [place] [address] Dr. Kavon Heltonutrophils/100 WBC (Bld)70.0 %Ulrhzi14.0-75.0The [facility] Charles HospitalComment on above:Performed By: #### FVPCR #### [facility] [address] [place] [address] Dr. Kavon Vallejolet mean volume (Bld) [Entitic vol]10.1 fLNormal9.5-13.5The St[facility] Charles HospitalComment on above:Performed By: #### FVPCR #### [facility] [address] [place] [address] Dr. Kavon CardenasPLT388 103/yoEfsjyg493-036Ihp [facility] - Cincinnatiment on above: Performed By: #### FVPCR #### [facility] [address] [place] [address] Dr. Kavon CardenasRBC4.57 106/ulNormal4.20-5.40The [facility] on above:Performed By: #### FVPCR #### [facility] [address] [place] [address] Dr. Kavon CardenasWBC14.8 103/ulCritically high4.0-11.0The [facility] - Cincinnatiment on above:Performed By: #### FVPCR #### [facility] [address] [place] [address] Dr. Kavon CardenasCULTURE URINEon [id number] URINECulture Observations: LIGHT GROWTH OF MIXED GENITAL KYRA. NO POTENTIAL PATHOGENS SEEN.NormalThe [facility] on above:Performed By: #### CARDIGM #### [facility] [address] [place] [address] Dr. Kavon CardenasGLYCOHEMOGLOBIN A1Con 26-17-2058CFF RECOMMENDATIONSEE BELOWNormal The St. Charles HospitalComhelen devos children[facility] on above:Result Comment: ADA RECOMMENDED LIMIT 4.0 - 6.0 ADA THERAPEUTIC TARGET < 7.0 ACTION SUGGESTED > 7.0Performed By: #### A1C #### [facility] [address] [place] [address] Dr. Kavon CardenasGlucose [Mass/Vol]103 mg/dLNoVan Wert County Hospital on above:Performed By: #### A1C #### [facility] [address] [place] [address] Dr. Kavon CardenasHbA1c (Bld) [Mass fraction]5.2 %Normal4.5-6.2The [facility] on above:Performed By: #### A1C #### [facility] [address] [place] [address] Dr. Kavon CardenasTYPE AND SCREENon [id number] AND SCREENNegativeNoVan Wert County Hospital on above:Performed By: #### CARDIGM #### [facility] [address] [place] [address] Dr. Kavon Bernabe QUANT HCGon [id number] MPEZX9715 mIU/mLNormalThe St. Charles HospitalComment on above:Performed By: #### CBC #### [facility] [address] [place] [address] Dr. Kavon Whitt RANGESEE BELOWNoProtestant HospitalComment on above: Result Comment: 5-50 0.2-1 WEEK 50-500 1-2 WEEKS 100-5,000 2-3 WEEKS 500-10,000 3-4 WEEKS 1,000-50,000 4-5 WEEKS 10,000-100,000 5-6 WEEKS 15,000-200,000 6-8 WEEKS 10,000-100,000 2-3 MONTHSPerformed By: #### CBC #### [facility] [address] [place] [address] Dr. Kavon MelendezC AUTO DIFFon [id number] #0.1 103/ulNormal0.0-0.1The [facility] Charles HospitalComment on above:Performed By: #### CBC #### [facility] [address] [place] [address] Dr. Kavon CardenasBasophils/100 WBC (Bld)0.6 %Normal0.2-2.0[facility] Comment on above:Performed By: #### CBC #### [facility] [address] [place] [address] Dr. Kavon Underwood #1.1 103/ulCritically high0.0-0.7The St. Charles HospitalComment on above:Performed By: #### CBC #### [facility] [address] [place] [address] Dr. Kavon Gaosinophils/100 WBC (Bld)8.1 %Critically high0.9-7.0The [facility]. Charles HospitalComment on above:Performed By: #### CBC #### [facility] [address] [place] [address] Dr. Kavon Garythrocyte distribution width (RBC) [Ratio]13.8 %Twqfdw11.0-15.[address] [facility] HospitalComment on above:Performed By: #### CBC #### [facility] [address] [address] [address] Kavon Lemonsatotannert (Bld) [Volume fraction]37.4 %Micull27.0-48.0The [facility]. Charles HospitalComment on above:Performed By: #### CBC #### [facility] [address] [place] [address] Dr. Kavon CardenasHemoglobin (Bld) [Mass/Vol]12.4 g/qZAnatuw84.0-16.0The [facility]. Charles HospitalComment on above:Performed By: #### CBC #### [facility] [address] [place] [address] Dr. Kavon Mosher #0.06 10e3/ulCritically high0.00-0.03The [facility] Comment on above:Performed By: #### CBC #### [facility] [address] [place] [address] Dr. Kavon Mosher %0.4 %Normal0.0-0.5The [facility] on above: Performed By: #### CBC #### [facility] [address] [place] [address] Dr. Kavon Macias #3.4 103/ulNormal1.2-3.8The [facility] on above:Performed By: #### CBC #### [facility] [address] [place] [address] Dr. Kavon Nietohocytes/100 WBC (Bld)25.4 %Virchx07.5-60.0The [facility] on above:Performed By: #### CBC #### [facility] [address] [place] [address] Dr. Kavon SanchezUAL DIFF REQNONormalThe St. Charles HospitalComment on above: Performed By: #### CBC #### [facility] [address] [place] [address] Dr. Kavon Long (RBC) [Entitic mass]28.5 czEvlfmx86.7-34.0The [facility] HospitalComment on above:Performed By: #### CBC #### [facility] [address] [place] [address] Dr. Kavon Maldonado (RBC) [Mass/Vol]33.2 g/dDPkkitq95.9-35.2The [facility]. Charles HospitalComment on above:Performed By: #### CBC #### [facility] [address] [place] [address] Dr. Kavon Maldonado (RBC) [Entitic vol]86.0 hRNoafau35.0-99.0The [facility] Charles HospitalComment on above:Performed By: #### CBC #### [facility] [address] [place] [address] Dr. Kavon Coles #0.9 103/ulCritically high0.3-0.8The [facility] Comment on above:Performed By: #### CBC #### [facility] [address] [place] [address] Dr. Kavon Johnsonocytes/100 WBC (Bld)6.5 %Normal1.7-12.0The [facility] Comment on above:Performed By: #### CBC #### [facility] [address] [place] [address] Dr. Kavon Worley #7.9 103/ulCritically high1.4-6.5The [facility] Comment on above:Performed By: #### CBC #### [facility] [address] [place] [address] Dr. Kavon Heltonutrophils/100 WBC (Bld)59.0 %Qxidtz46.0-75.0The [facility] Charles HospitalComment on above:Performed By: #### CBC #### [facility] [address] [place] [address] Dr. Kavon Vallejolet mean volume (Bld) [Entitic vol]9.6 fLNormal9.5-13.5The St. Charles HospitalComment on above:Performed By: #### CBC #### [facility] [address] [place] [address] Dr. Kavon McgrawT353 103/foPmybvj394-150Lzl St[facility] HospitalComhelen [facility]os [facility] on above: Performed By: #### CBC #### [facility] [address] [place] [address] Dr. Kavon CardenasRBC4.35 106/ulNormal4.20-5.40The [facility] on above:Performed By: #### CBC #### [facility] [address] [address] [address] Kavon CardenasWBC13.5 103/ulCritically high4.0-11.0[facility] on above:Performed By: #### CBC #### [facility] [address] [place] [address] Dr. Kavon CardenasGLYCOHEMOGLOBIN A1Con 09-13-0397NAJ RECOMMENDATIONSEE [facility] DublinComhel[facility] on above:Result Comment: ADA RECOMMENDED LIMIT 4.0 - 6.0 ADA THERAPEUTIC TARGET < 7.0 ACTION SUGGESTED > 7.0Performed By: #### BGLYIGM #### [facility] [address] [place] [address] Dr. Kavon CardenasGlucose [Mass/Vol]114 mg/dLNoProtestant HospitalComhelen devos children's [facility] on above:Performed By: #### BGLYIGM #### [facility] [address] [place] [address] Dr. Kavon CardenasHbA1c (Bld) [Mass fraction]5.6 %Normal4.5-6.2[facility] on above:Performed By: #### BGLYIGM #### [facility] [address] [place] [address] Dr. Kavon CardenasLIPID PROFILEon 22-05-6742CTRF-HDL RATIO NORMSEE [facility] HospitalComhel[facility] on above:Result Comment: 3.3 - 4.4 LOW RISK 4.4 - 7.1 AVERAGE RISK 7.1 - 11.0 MODERATE RISK >11.0 HIGH RISKPerformed By: #### FVPCR #### [facility] [address] [place] [address] Dr. Kavon CardenasCholesterol [Mass/Vol]164 mg/dLNormal<=200The [facility] Comment on above:Performed By: #### FVPCR #### [facility] [address] [place] [address] Dr. Kavon CardenasCholesterol in HDL [Mass/Vol]37 mg/dLCritically jpp76-06Cuy St. Charles HospitalComment on above:Performed By: #### FVPCR #### [facility] [address] [place] [address] Dr. Kavon CardenasCholesterol in LDL [Mass/Vol]85.4 mg/dLNoProtestant HospitalComment on above:Performed By: #### FVPCR #### [facility] [address] [place] [address] Dr. Kavon Brunoesterrafael.total/Cholesterol in HDL [Mass ratio]4.4 {ratio} NormalThe St. Charles HospitalComment on above:Performed By: #### FVPCR #### [facility] [address] [place] [address] Dr. Kavon Reed NORMAL> or = 60 mg/dl - LOW CARDIOVASCULAR RISK <40 mg/dl - HIGH CARDIOVASCULAR RISKClermont County HospitalComment on above:Performed By: #### FVPCR #### [facility] [address] [place] [address] Dr. Kavon CardenasLDL CALC NORMALSEE BELOWClermont County HospitalComment on above:Result Comment: <100 mg/dl OPTIMAL 100 - 129 mg/dl NEAR OR ABOVE OPTIMAL 130 - 159 mg/dl BORDERLINE HIGH 160 - 189 mg/dl HIGH >190 mg/dl VERY HIGH Performed By: #### FVPCR #### [facility] [address] [place] [address] Dr. Kavon CardenasTriglyceride [Mass/Vol]208 mg/dLCritically high<=150The St. Charles HospitalComment on above:Performed By: #### FVPCR #### [facility] [address] [place] [address] Dr. Kavon CorriganLDL CALC41.6 mg/dLNoProtestant HospitalComment on above: Performed By: #### FVPCR #### [facility] [address] [address] [address] Kavon Friend PROFILEon 32-74-0302Jghmcor [Mass/Vol]3.3 g/dLCritically low3.4-5.0The [facility] Charles HospitalComment on above:Performed By: #### FVPCR #### [facility] [address] [place] [address] Dr. Kavon CardenasAlbumin/Globulin [Mass ratio]0.8 {ratio}NormalThe St. Charles HospitalComment on above:Performed By: #### FVPCR #### [facility] [address] [place] [address] Dr. Kavon Izaguirre [Catalytic activity/Vol]96 U/TYuyhnz51-030Xxe St. Charles HospitalComment on above:Performed By: #### FVPCR #### [facility] [address] [place] [address] Dr. Kavon Watts [Catalytic activity/Vol]19 U/GXmdtuz03-90Ymo St. Charles HospitalComment on above:Performed By: #### FVPCR #### [facility] [address] [place] [address] Dr. Kavon CardenasAST [Catalytic activity/Vol]12 U/LCritically vxl41-06Icq St. Charles HospitalComment on above:Performed By: #### FVPCR #### [facility] [address] [place] [address] Dr. Kavon Stewart, CONJUGATED0.1 mg/dLNormal0.0-0.2The [facility] Comment on above:Performed By: #### FVPCR #### [facility] [address] [place] [address] Dr. Kavon Brewerirubin [Mass/Vol]0.3 mg/dLNormal0.2-1.0The [facility] Comment on above:Performed By: #### FVPCR #### [facility] [address] [place] [address] Dr. Kavon CardenasGlobulin (S) [Mass/Vol]4.1 g/dLNormalThe [facility] HospitalComment on above:Performed By: #### FVPCR #### [facility] [address] [place] [address] Dr. Kavon CardenasProtein [Mass/Vol]7.4 g/dLNormal6.4-8.2[facility] Comment on above:Performed By: #### FVPCR #### [facility] [address] [place] [address] Dr. Kavon Bernabe QUANT HCGon 66-23-5733NBJ CVHZO174 mIU/mLNormalAccess Hospital DaytonComment on above:Performed By: #### A1C #### [facility] [address] [place] [address] Dr. Kavon Whitt [facility] AkronComment on above: Result Comment: 5-50 0.2-1 WEEK 50-500 1-2 WEEKS 100-5,000 2-3 WEEKS 500-10,000 3-4 WEEKS 1,000-50,000 4-5 WEEKS 10,000-100,000 5-6 WEEKS 15,000-200,000 6-8 WEEKS 10,000-100,000 2-3 MONTHSPerformed By: #### A1C #### [facility] [address] [place] [address] Dr. Kavon CardenasPROF CHEM 8 (BAS METB)on 47-08-1665Ibvpg gap [Moles/Vol]11.3 mmol/LNormalAccess Hospital DaytonComment on above:Performed By: #### FVPCR #### [facility] [address] [place] [address] Dr. Kavon CardenasCalcium [Mass/Vol]9.2 mg/dLNormal8.5-10.1[facility] Comment on above:Performed By: #### FVPCR #### [facility] [address] [place] [address] Dr. Kavon CardenasChloride [Moles/Vol]104 mmol/XXwdksv74-069LnnAccess Hospital [place] Comment on above:Performed By: #### FVPCR #### [facility] [address] [place] [address] Dr. Kavon CardenasCO2 [Moles/Vol]25.7 mmol/VKnowtj75.0-32.0The [facility] Comment on above:Performed By: #### FVPCR #### [facility] [address] [place] [address] Dr. Kavon CardenasCreatinine [Mass/Vol]0.81 mg/dLNormal0.55-1.02The [facility] Charles HospitalComment on above:Performed By: #### FVPCR #### [facility] [address] [address] [address] Kavon GaGFR-AF SAMOAN>60Normal>=60The [facility]. Charles HospitalComment on above:Performed By: #### FVPCR #### [facility] [address] [place] [address] Dr. Kavon GaGFR-NON AF SAMOAN>60Normal>=60The [facility] Charles HospitalComment on above:Performed By: #### FVPCR #### [facility] [address] [place] [address] Dr. Kavon CardenasGlucose [Mass/Vol]89 mg/vZZaqgtx94-652Tnp [facility] Comment on above:Performed By: #### FVPCR #### [facility] [address] [place] [address] Dr. Kavon CardenasPotassium [Moles/Vol]4.0 mmol/LNormal3.5-5.1The [facility] Comment on above:Performed By: #### FVPCR #### [facility] [address] [place] [address] Dr. Kavon CardenasSodium [Moles/Vol]137 mmol/SAwfafk969-902Vnb [facility] Comment on above:Performed By: #### FVPCR #### [facility] [address] [place] [address] Dr. Kavon CardenasUrea nitrogen [Mass/Vol]8.0 mg/dLNormal7.0-18.0The [facility] Charles HospitalComment on above:Performed By: #### FVPCR #### [facility] [address] [place] [address] Dr. Kavon CardenasUrea nitrogen/Creatinine [Mass ratio]9.9 mg/mgNoProtestant HospitalComment on above:Performed By: #### FVPCR #### [facility] [address] [place], [place] [address] Dr. Kavon Lewis 03-72-8207ZGH8.461 uIU/mLNormal0.358-3.740The St. Charles HospitalComment on above:Performed By: #### FVPCR #### [facility] [address] [place], [place] [address] Dr. Kavon CardenasFACTOR V LEIDEN MUTATION ANALYSISon 90-12-4492Hbgrsn V Leiden CommentCleveland Clinic Euclid Hospital on above:Result Comment: Result: c.1601G>A (p.Kvq707Xki) - Not Detected . This result is not associated with an increased risk for venous thromboembolism. See Additional Clinical Information and Comments. Additional Clinical Information: Venous thromboembolism is a multifactorial disease influenced by genetic, environmental, and circumstantial risk factors. The c.1601G>A (p. Hrr564Yol) variant in the F5 gene, commonly referred [...] c.*97G>A variant and Factor V Leiden (PMID: 08022355). Additional risk factors include but are not [...] health care providers to discuss results at [phone] ([phone]). . Test Details: Variant Analyzed: c.1601G>A (p. Ayc033Vwb), referred to as Factor V Leiden . [...] developed and its performance characteristics determined by [employer]. It has not been cleared or approved by the Food and Drug Administration. . References: Bruce S, Itzel WOOD, Renny R, Blas WW, Jorge JH; ACMG Professional Practice and Guidelines Committee. Addendum: [place] [employer] consensus statement on factor V Leiden mutation testing. [employer]. 2020Sep 10. doi: 10.1038/x85019-849-56898-v. PMID: 85345818. . Jc GIRALDO. Factor V Leiden Thrombophilia. 1998November 19 [Updated 2017Jul 12]. In: Mendel MP, Epi HH, Jd RA, et al., editors. Alison(R) [Internet]. [place] ([place]): [employer]; 3645-1072. Available from: https://www.ncbi.nlm.nih.gov/books/GRU4765/ . Dimitri S, Itzel WOOD, Estevan X, Jono B, Ian EB, Barbara P, Jose CS; [employer] Laboratory Riffler Tender Committee. Venous thromboembolism laboratory testing (factor V Leiden and factor II c.*97G>A), 2018 update: a technical standard of the [place] [employer] ([employer]MG). [employer]. 2017;20(12):7633-5187. doi: 10.1038/w24471-784-3605-p. Ep2017Apr 12. PMID: 48197283. . Kathi Mercer, PhD, [facility] Liv Joseph, PhD Clint Green, PhD, [facility] Willie Manuel, PhD, [facility] Jesus Bradford, PhD, [facility] Amna Roca, PhD, FAC Cris Odom, PhD, [facility] Sonia Alejo, PhD, FACMGPerformed By: #### FVPCR #### [facility] [address] [place] [address] Dr. Kavon Amador ACOG PANEL 2: 21 to 29on 04-07-2022..NormalAccess Hospital DaytonComment on above:Performed By: #### CARDIGM #### [facility] [address] [place] [address] Dr. Kavon Avendano Gdln ACOG Hfcdhfq76-21KlvlrjZjnVan Wert County Hospital on above:Performed By: #### CARDIGM #### [facility] [address] [place] [address] Dr. Kavon CardenasDIAGNOSIS:CommentCleveland Clinic Euclid Hospital on above: Result Comment: NEGATIVE FOR INTRAEPITHELIAL LESION OR MALIGNANCY.Performed By: #### CARDIGM #### [facility] [address] [place] [address] Dr. Kavon CardenasMethodology:CommentCleveland Clinic Euclid Hospital on above: Result Comment: This liquid based ThinPrep(R) pap test was screened with the use of an image guided system.Performed By: #### CARDIGM #### [facility] [address] [place] [address] Dr. Kavon CardenasNote:CommentCleveland Clinic Euclid Hospital on above:Result Comment: The Pap smear is a screening test designed to aid in the detection of premalignant and malignant conditions of the uterine cervix. It is not a diagnostic procedure and should not be used as the sole means of detecting cervical cancer. Both false-positive and false-negative reports do occur. .Performed By: #### CARDIGM #### [facility] [address] [place] [address] Dr. Kavon CardenasPerformed by:CommentCleveland Clinic Euclid Hospital on above: Result Comment: Madhu Lim Yarn Worker (ASCP)Performed By: #### CARDIGM #### [facility] [address] [place] [address] Dr. Kavon CardenasReflex Criteria:CommentCleveland Clinic Euclid Hospital on above:Result Comment: The HPV DNA reflex criteria were not met with this specimen result therefore, no HPV testing was performed. .Performed By: #### CARDIGM #### [facility] [address] [place] [address] Dr. Kavon CardenasSpecimen adequacy:CommentCleveland Clinic Euclid Hospital on above:Result Comment: Satisfactory for evaluation. Endocervical and/or squamous metaplastic cells (endocervical component) are present.Performed By: #### CARDIGM #### [facility] [address] [place] [address] Dr. Kavon CardenasANTIPHOSPHOLIPID SYNDROME PROFILEon 42-10-1637Kyosenfgrbkwkml Ab,IgG,Qn<6Sxiels2-64XleKettering Health Greene Memorial on above:Result Comment: Negative: <15 Indeterminate: 15 - 20 Low-Med Positive: >20 - 80 High Positive: >80 Performed at: CBPerformed By: #### CARDIGM #### [facility] [address] [place] [address] Dr. Kavon CardenasAnticardiolipin Ab,IgM,Qn<6Vxtkto1-64Gsm [facility] HospitalComhelen devos children's hospital on above:Result Comment: Negative: <13 Indeterminate: 13 - 20 Low-Med Positive: >20 - 80 High Positive: >80 Performed at: CBPerformed By: #### CARDIGM #### [facility] [address] [place] [address] Dr. Kavon CardenasAPS Panel InterpretationCommentCleveland Clinic Euclid Hospital on above:Result Comment: Please refer to the Coag Studies Interp Report. Performed at: BNPerformed By: #### CARDIGM #### [facility] [address] [place] [address] Dr. Kavon CardenasaPTAlma Rosa Coag (Bld) [Time]25.1 rIpkfln12.9-30.2[facility] Comment on above:Result Comment: Performed at: BNPerformed By: #### [facility] #### [facility] [address] [address] [address] Kavon Jarrett Glycoprotein I Ab, IgG<3Zcejex1-18Oym [facility] Comment on above:Result Comment: The reference interval reflects a 3SD or 99th percentile interval, which is thought to represent a potentially clinically significant result in accordance with the International Consensus Statement on the classification criteria for definitive antiphospholipid syndrome (APS). J Thromb Haem 2006;4:295-306. Performed at: BNPerformed By: #### RAFFAELE #### [facility] [address] [place] [address] Dr. Kavon Jarrett Glycoprotein I Ab, IgM<8Asofry3-35EdiAccess Hospital [facility] Comment on above:Result Comment: The reference interval reflects a 3SD or 99th percentile interval, which is thought to represent a potentially clinically significant result in accordance with the International Consensus Statement on the classification criteria for definitive antiphospholipid syndrome (APS). J Thromb Haem 2006;4:295-306. Performed at: BNPerformed By: #### RAFFAELE #### [facility] [address] [place] [address] Dr. Kavon CardenasdRVVT42.0 secNormal0.0-47.0[facility] DaytonComment on above: Result Comment: Performed at: BNPerformed By: #### RAFFAELE #### [facility] [address] [place] [address] Dr. Kavon CardenasHex Phase Phospolipid4 secNormal0-11Access Hospital DaytonComment on above:Result Comment: Performed at: BNPerformed By: #### RAFFAELE #### [facility] [address] [place] [address] Dr. Kavon Rodriguezg (PPP) [Relative time]1.0 {INR}Normal0.9-1.2[facility] Hospital DaytonComment on above:Result Comment: Reference interval is for non- anticoagulated patients. . Suggested INR therapeutic range for Vitamin K antagonist therapy: Standard Dose (moderate intensity therapeutic range): 2.0 - 3.0 Higher intensity therapeutic range 2.5 - 3.5 Performed at: BNPerformed By: #### RAFFAELE #### [facility] [address] [place] [address] Dr. Kavon CardenasPT Coag (PPP) [Time]10.1 sNormal9.1-12.0[facility] Comment on above:Result Comment: Performed at: BNPerformed By: #### CARDIGM #### [facility] [address] [place] [address] Dr. Kavon CardenasThrombin Time16.5 secNormal0.0-23.0The St[facility] Charles HospitalComment on above:Result Comment: Performed at: BNPerformed By: #### CARDIGM #### [facility] [address] [place] [address] Dr. aKvon CardenasANTITHROMBIN ACTIVITYon 30-60-0353Aakmkcmxpnlp Ciqdnivq971 % Ekathw32-517Jle St. Charles HospitalComment on above:Result Comment: Direct Xa inhibitor anticoagulants such as rivaroxaban, apixaban and edoxaban will lead to spuriously elevated antithrombin activity levels possibly masking a deficiency.Performed By: #### CARDI #### [facility] [address] [place] [address] Dr. Kavon CardenasB-2 GLYCOPROTEIN AB IGGon 02-85-3627Xkmt-2 Glycoprotein I Ab, IgG <2Xvceij7-23Trs St[facility] HospitalComment on above:Result Comment: The reference interval reflects a 3SD or 99th percentile interval, which is thought to represent a potentially clinically significant result in accordance with the International Consensus Statement on the classification criteria for definitive antiphospholipid syndrome (APS). J Thromb Haem 2006;4:295-306.Performed By: #### A1C #### [facility] [address] [place] [address] Dr. Kavon CardenasB2-GLYCOPROTEIN 1 AB IGMon 06-78-6984Vzwb-2 Glycoprotein I Ab, IgM<1Fushut7-85Vqu [facility] HospitalComment on above:Result Comment: The reference interval reflects a 3SD or 99th percentile interval, which is thought to represent a potentially clinically significant result in accordance with the International Consensus Statement on the classification criteria for definitive antiphospholipid syndrome (APS). J Thromb Haem 2006;4:295-306.Performed By: #### BGLYIGM #### [facility] [address] [place] [address] Dr. Kavon Leonard ANTICOAGULANT W/REFLEXon 45-13-9160pXYK Coag (Bld) [Time] 35.9 sNormal0.0-51.9The [facility] Cincinnatiment on above:Performed By: #### LUPUSRF #### [facility] [address] [place] [address] Dr. Kavon CardenasdRVVT39.5 secNormal0.0-47.0The [facility] HospitalComment on above: Performed By: #### LUPUSRF #### [facility] [address] [place] [address] Dr. Kavon CardenasInterpretationComment:NormalThe St. [facility] HospitalComhelen devos children's hospital on above:Result Comment: No lupus anticoagulant was detected.Performed By: #### LUPUSRF #### [facility] [address] [place] [address] Dr. Kavon CardenasPROTEIN C FUNC ACTIVITYon 87-87-7338Xymawfq C-Iygrpmpeme349 % Cucies95-393Iqb [facility] HospitalComment on above:Performed By: #### FVPCR #### [facility] [address] [place] [address] Dr. Kavon CardenasPROTEIN S ANTIGENon 19-37-8772Ibjayna S, Free99 %Pwmxpv46-353Ime [facility] HospitalComment on above:Performed By: #### A1C #### [facility] [address] [place] [address] Dr. Kavon CardenasProtein S, Total90 %Iencri46-666Eff [facility] on above:Result Comment: This test was developed and its performance characteristics determined by [facility]. It has not been cleared or approved by the Food and Drug Administration.Performed By: #### A1C #### [facility] [address] [place] [address] Dr. Kavon CardenasANTICARDIOLIPIN AB (SHORTY) IGGon 20-43-5317Rjwzxagihclgswu Ab,IgG,Qn<2Zuusod3-39FzsKettering Health Greene Memorial on above:Result Comment: Negative: <15 Indeterminate: 15 - 20 Low-Med Positive: >20 - 80 High Positive: >80Performed By: #### FVPCR #### [facility] [address] [place] [address] Dr. Kavon CardenasANTICARDIOLIPIN AB (SHORTY) IGMon 63-76-2993Nwoussuptcvydgk Ab,IgM,Qn<0Dejlao3-01Gkj [facility] on above:Result Comment: Negative: <13 Indeterminate: 13 - 20 Low-Med Positive: >20 - 80 High Positive: >80Performed By: #### CARDIGM #### [facility] [address] [place] [address] Dr. Kavon CardenasFREE T4on 02-62-7703Lter T4 [Mass/Vol]0.91 ng/dLNormal0.76-1.[address] [facility] on above:Performed By: #### CBC #### [facility] [address] [place] [address] Dr. Kavon CardenasGLYCOHEMOGLOBIN A1Con 89-21-9757PEF RECOMMENDATIONSEE BELOWNormal [facility] on above:Result Comment: ADA RECOMMENDED LIMIT 4.0 - 6.0 ADA THERAPEUTIC TARGET < 7.0 ACTION SUGGESTED > 7.0Performed By: #### A1C #### [facility] [address] [place] [address] Dr. Kavon CardenasGlucose [Mass/Vol]108 mg/dLNormalThe St. [facility] HospitalComhel[facility] on above:Performed By: #### A1C #### [facility] [address] [place] [address] Dr. Kavon CardenasHbA1c (Bld) [Mass fraction]5.4 %Normal4.5-6.2[facility] on above:Performed By: #### A1C #### [facility] [address] [place] [address] Dr. Kavon CardenasTSHon 37-16-7911TSH3.208 uIU/mLNormal0.358-3.740The [facility] HospitalComment on above:Performed By: #### A1C #### [facility] [address] [address] [address] Kavon Cardenas Vital Signs Date TimeVital SignValuePerforming YixbydztrLtzzildh10-03-0893 15:10-0400Body izaiib075.64 cmMikel Ibarra MD Work Phone: [phone] [place], [place] 0100210-09-2025 15:10-0400 Body mass index (BMI) [Ratio]33.9 kg/m2Mikel Ibarra MD Work Phone: [phone] [place], [place] 0100210-09-2025 15:10-0400 Body xghehpgapwb14.2 [degF]Mikel Ibarra MD Work Phone: [phone] [place], [place] 0100210-09-2025 15:10-0400 Body efwtta33.36 kgMikel Ibarra MD Work Phone: [phone] [place], [place] 0100210-09-2025 15:10-0400 Diastolic blood amtcfpat52 mm[Hg]Mikel Ibarra MD Work Phone: 1(324)[address] [place], [place] 0100210-09-2025 15:10-0400 Heart rate51 /minMikel Ibarar MD Work Phone: [phone] [place], [place] 0100210-09-2025 15:10-0400 Respiratory rate16 /minMikel Ibarra MD Work Phone: [phone] [place], [place] 0100210-09-2025 15:10-0400 SaO2% (BldA) [Mass fraction]98 %Mikel Ibarra MD Work Phone: [phone] [place], [place] 0100210-09-2025 15:10-0400 Systolic blood fkmknoft534 mm[Hg]Mikel Ibarra MD Work Phone: [phone] [place], [place] 0100207-29-2025 10:54-0400 Body mass index (BMI) [Ratio]33.78 kg/s9Govan Padmini DO Work Phone: [facility] HospitalVjyresfphx42-96-6376 10:54-0400Body .08 kgCorey Padmini DO Work Phone: [facility] HospitalXadmtnurqz15-44-5027 10:54-0400Diastolic blood ciioxaee42 mm[Hg]Davidadam Washington DO Work Phone: NOS[facility] HospitalZkytuholaz12-49-0005 10:54-0400Systolic blood safvewgx829 mm[Hg]David Washington DO Work Phone: [facility] HospitalNtufaadvvh52-00-4482 14:57-0400Body mydbtz438.1 cmMikel Ibarra MD Work Phone: [facility] HospitalUgdfawgdba97-23-8337 14:57-0400Body mass index (BMI) [Ratio]36.78 kg/m2Mikel Ibarra MD Work Phone: [facility] HospitalMoapvwapmi28-53-8407 14:57-0400Body temperature 97.81 [degF]Mikel Ibarra MD Work Phone: [facility] HospitalXlxxtsgxar06-75-8303 14:57-0400Body lkojxt780.25 kgMikel Ibarra MD Work Phone: [facility] HospitalDewthgtoik82-88-0413 14:57-0400Diastolic blood qkvdxahp58 mm[Hg]Mikel Ibarra MD Work Phone: [facility] HospitalPpurzxmarw80-10-5521 14:57-0400Heart rate99 /min Mikel Ibarra MD Work Phone: [facility] HospitalEqzfiwzsyn08-95-8294 14:57-0400Respiratory rate22 /minMikel Ibarra MD Work Phone: [address] [address]Ooavagxaak20-01-8658 14:57-3916XaH8% (BldA) [Mass fraction]98 %Mikel Ibarra MD Work Phone: [address] [address]Bamjdgthin89-36-2189 14:57-0400Systolic blood pcobvxxn999 mm[Hg]Mikel Ibarra MD Work Phone: [facility] HospitalZsmkmhmjul22-55-3411 13:25-0400Hourly Rounding Kenny Matute [address] [place], [place] 5021804-09-2025 13:25-0400 Promise to ReturnAleirlanda Loaizaer [address] [place], [place] 5021804-09-2025 12:25-0400 Hourly RoundingAleirlanda Matute [address] [place], [place] 5021804-09-2025 12:25-0400 Promise to ReturnAlexaalexis Loaizaer [address] [place], [place] 6755604-09-2025 11:37-0400Heart rate77 /minKenny Matute [address] [place], [place] 5021804-09-2025 11:37-3860YfC5% (BldA) [Mass fraction]100 %Kenny Matute [address] [place], [place] 5021804-09-2025 11:36-0400 Diastolic blood bnqpanok48 mm[Hg]Kenny Matute [address] [place], [place] 5021804-09-2025 11:36-0400Mean blood owlfgldp17 mm[Hg]Kenny Matute [address]04-09-2025 11:36-0400 Systolic blood nabzisvc990 mm[Hg]Kenny Matute [address] [place], [place] 5021804-09-2025 11:36-0400Body bvbjcoydwev17.06 [degF]Kenny Matute [address] [place], [place] 5021804-09-2025 11:26-0400 Hourly RoundingAleirlanda Loaizaer [address] [place], [place] 5021804-09-2025 11:26-0400 Promise to ReturnAlecyndier Giovani [address] [place], [place] 6755604-09-2025 07:52-0400Heart rate66 /minAlexaalexis Giovani [address] [place], [place] 6755604-09-2025 07:52-7411QqC6% (BldA) [Mass fraction]100 %Kenny Matute [address] [place], [place] 6755604-09-2025 07:51-0400Body fggtwucllsk95.06 [degF]Kenny Matute [address] [place], [place] 6755604-09-2025 07:51-0400 Diastolic blood aqvyausg85 mm[Hg]Kenny Matute [address] [place], [place] 6755604-09-2025 07:51-0400Mean blood rphxivch63 mm[Hg]Kenny Matute [address] [place], [place] 6755604-09-2025 07:51-0400 Systolic blood yvxjlnkv585 mm[Hg]Kenny Matute [address] [place], [place] 6755604-09-2025 00:40-0400Blood Pressure LocationAleirlanda Giovani [address]04-09-2025 00:40-0400Body mmfddivptol52.06 [degF]Kenny Matute [address] [place], [place] 6755604-09-2025 00:40-0400 Diastolic blood ulxuesjm45 mm[Hg]Kenny Matute [address] [place], [place] 5021804-09-2025 00:40-0400Heart rate80 /minAleirlanda Giovani [address] [place], [place] 5021804-09-2025 00:40-0400Mean blood fivdctvi55 mm[Hg]Kenny Matute [address] [place], [place] 6755604-09-2025 00:40-0400 Respiratory rate16 /minAlexaalexis Giovani [address] [place], [place] 6755604-09-2025 00:40-0264PgP7% (BldA) [Mass fraction]99 %Kenny Matute [address] [place], [place] 6755604-09-2025 00:40-0400 Systolic blood baqeqvvg867 mm[Hg]Kenny Matute [address] [place], [place] 6755604-08-2025 19:00-0400Body zvsycntzcys04.88 [degF]Kenny Matute [address] [place], [place] 6755604-08-2025 19:00-0400Mean blood kdkxnonz08 mm[Hg]Kenny Matute [address] [place], [place] 6755604-08-2025 19:00-0400 Respiratory rate14 /minKenny Giovani [address] [place], [place] 6755604-08-2025 15:25-0400Mean blood pphujxba75 mm[Hg]Kenny Matute [address] [place], [place] 6755604-08-2025 15:25-0400Body .42 [degF]Kenny Matute [address] [place], [place] 6755604-08-2025 10:58-0400Body rcpfcefevhn47.42 [degF]Kenny Matute [address] [place], [place] 6755604-08-2025 07:37-0400 Respiratory rate16 /minKenny Giovani [address] [place], [place] 6755604-07-2025 23:45-0400Blood Pressure LocationAleirlanda Giovani [address] [place], [place] 6755604-07-2025 23:45-0400Mean blood uafrnpzp32 mm[Hg]Kenny Matute [address] [place], [place] 6755604-06-2025 17:40-0400Heart rate97 /minAlexander Giovani [facility]04-06-2025 12:00-0400Heart wgaa181 /minAlexander Giovani [facility]04-06-2025 10:00-0400Heart rate81 /minAlexander Giovani [facility]01-27-2025 13:16-0500Body equahn671.1 cmMikel Ibarra MD Work Phone: 1(611)[address]01-27-2025 13:16-0500Body mass index (BMI) [Ratio]36.44 kg/m2Mikel Ibarra MD Work Phone: 1(160)363-[address] [place], [place] [address]Ivvglsxgxe76-21-8294 13:16-0500Body temperature 98.2 [degF]Mikel Ibarra MD Work Phone: 1(088)936-[address] [place], [place] [address]Sudqndrkpp69-31-8698 13:16-0500Body .34 kgMikel Ibarra MD Work Phone: 1(911)472-[address] [place], [place] [address]Thtwtgvvwg84-25-7945 13:16-0500Diastolic blood xeqeqvnx10 mm[Hg]Mikel Ibarra MD Work Phone: 1(829)876-[address] [place], [place] [address]Wfupwszwzq53-01-0515 13:16-0500Heart rate95 /min Mikel Ibarra MD Work Phone: 1(104)0-[address] [place], [place] [address]Mnpgoaerde51-63-0850 13:16-0500Respiratory rate22 /minMikel Ibarra MD Work Phone: 1(329)371-[address] [place], [place] [address]Irocqfjfqr68-93-0003 13:16-2956YcT6% (BldA) [Mass fraction]97 %Mikel Ibarra MD Work Phone: 1(456)528-[address] [place], [place] [address]Ceyoxzwflz35-31-4621 13:16-0500Systolic blood mm[Hg]Mikel Ibarra MD Work Phone: 1(187)[address]11-02-2024 01:30-0400Diastolic blood mm[Hg]Jimmy Hay MD Work Phone: 1(168)[facility]11-02-2024 01:30-0400Heart jymo806 /minJimmy Hay MD Work Phone: 1(057)[facility]11-02-2024 01:30-0400 Respiratory rate18 /minJimmy Hay MD Work Phone: 1(349)[facility]11-02-2024 01:30-1967OtJ0% (BldA) [Mass fraction]95 %Jimmy Hay MD Work Phone: 1(713)[facility]11-02-2024 01:30-0400 Systolic blood frmpoarg827 mm[Hg]Jimmy Hay MD Work Phone: 1(104)[facility]11-01-2024 20:46-0400Body ewiupv473.1 Kristine Hay MD Work Phone: 1(564)[facility]11-01-2024 20:46-0400Body mass index (BMI) [Ratio]35.78 kg/h5SclwpJimmy Hay MD Work Phone: 1(555)[facility]11-01-2024 20:46-0400Body abjxunnivvx42.4 [degF]Jimmy Hay MD Work Phone: 1(592)[facility]11-01-2024 20:46-0400Body ucpndz12.52 kgJimmy Hay MD Work Phone: 1(470)[facility]10-23-2024 08:46-0400Body cygcvz039.1 cmMikel Ibarra MD Work Phone: [facility] HospitalLmmtyozrfp14-91-2625 08:46-0400Body mass index (BMI) [Ratio]35.94 kg/m2Mikel Ibarra MD Work Phone: [facility] HospitalKjelvvcvbi15-91-2532 08:46-0400Body temperature 97.5 [degF]Mikel Ibarra MD Work Phone: [facility]OS[facility] HospitalPkfditlnsm73-97-0844 08:46-0400Body vobmuz99.98 kgMikel Ibarra MD Work Phone: noSaint [facility] HospitalPdwuncrrih97-96-5169 08:46-0400Diastolic blood tcueaccz76 mm[Hg]Mikel Ibarra MD Work Phone: NOS[facility] HospitalMufqeczwfh94-28-7594 08:46-0400Heart rate86 /min Mikel Ibarra MD Work Phone: NOS[facility] HospitalJgywxhmtmt19-60-6283 08:46-0400Respiratory rate20 /minMikel Ibarra MD Work Phone: noSaint [facility] HospitalYivqqmdaca48-23-4702 08:46-6234FsI2% (BldA) [Mass fraction]97 %Mikel Ibarra MD Work Phone: NOS[facility] HospitalHktyyytpbf81-83-2154 08:46-0400Systolic blood mm[Hg]Mikel Ibarra MD Work Phone: [facility] Encounters Encounter DateEncounter TypeCare ProviderFacilityStart: 89-45-0391rjhrknqyvgVhye Naderer MD Work Phone: -[facility] Professional CoStart: 41-11-9449Ade- patient / Non-visitMikel Ibarra MD-[facility] Work Phone: Start: 89-84-5082Qnvsxgcdwv RecurringCesar Mallory [facility] CredibleStart: 33-44-9219twxfaxhtkjIjvdjxhxqtc Abdelaziz [facility] Hospitalt[facility]: 04-16-2025 End: 01-24-2265wqrzseyipmYnbh Naderer MD Work Phone: [facility] Work Phone: Start: 04-16-2025 End: 14-51-9178Vzbpjet encounter procedureMikel Ibarra MD-[facility] Work Phone: Start: 45-57-0767Cugpfzrnmq RecurringCesar Mallory [facility] CredibleStart: 02-03-2025 End: 85-32-5812Vgwxwq flowsheetCorey Padmini DO Work Phone: [facility] [place] OBGYNStart: 02-03-2025 End: 93-97-0949Njrrka flowsheetCorey Padmini DO Work Phone: NOZW Cody OBGYNStart: 02-03-2025 End: 73-35-1496Mtmvnu outpatient visit 15 minutesCorey Padmini DO Work Phone: NOHZ Cody OBGYNComment on above:Encounter for fertility planning; Follow-up examStart: 02-03-2025 End: 38-59-0386xmgpijdmuoZSORN FAZIONot AvailableStart: 11-21-2024 End: 24-69-6198Lhhhcwzdk Result EncounterGeneric External Data ProviderNOMS External Department UnsolicitedStart: 11-21-2024 End: 46-90-1561Drbwyekkq Result EncounterGeneric External Data ProviderNOMS External Department UnsolicitedStart: 11-19-2024 End: 91-83-6694Vvkftwoeo Result EncounterGeneric External Data ProviderNOMS External Department UnsolicitedStart: 11-19-2024 End: 28-85-7662Otpznslnz Result EncounterGeneric External Data ProviderNOMS External Department UnsolicitedStart: 10-30-2024 End: 20-85-1332Wfjmkx outpatient visit 25 minutesMarblake Ibarra MD Work Phone: noms CW FMComment on above:Pyelonephritis (Primary Dx); Major depressive disorder, recurrent episode, moderate (CMS/HCC); Generalized anxiety disorder (CMS/HCC); Mild persistent asthma without complication (CMS/HCC); Mild asthma without complication, unspecified whether persistent (CMS/HCC); Urticaria due to cold and heatStart: 10-30-2024 End: 60-40-3593dzqixfuricGDDQ NADERERNot AvailableStart: 10-30-2024 End: 56-04-3915Jpjeuo Alfonso Ibarra MD Work Phone: noms CWM FMStart: 10-30-2024 End: 19-33-7037Qfsyuu Alfonso Ibarra MD Work Phone: noms CWM FMStart: 10-12-2024 End: 90-69-7317Qxmyvinltw and management of inpatientKenny Matute Facility:[facility]MCStart: 38-49-7785Epbhhbnrn department patient visitHackensack University Medical Centerbritni Trinidad Facility:FTMCStart: 10-12-2024 End: 91-21-1181Rawhlufidz and management of inpatientKenny Matute [facility] Start: 09-29-2024 End: 78-05-5222Lfikbluvk Result EncounterCorey Padmini DO Work Phone: noms External Department UnsolicitedStart: 09-29-2024 End: 09-89-5126Zecuyrtnh Result EncounterCorey Padmini DO Work Phone: noms External Department UnsolicitedStart: 09-29-2024 End: 79-98-6683elnoioqksbMKUJC FAZIONot AvailableStart: 08-04-2024 End: 77-53-0737Sdtckb Alfonso Ibarra MD Work Phone: NOYB CWM FMStart: 08-04-2024 End: 69-17-6347Wvyzik Alfonso Ibarra MD Work Phone: noms CWM FMStart: 08-04-2024 End: 10-96-3745Ihbses outpatient visit 25 minutesMikel Ibarra MD Work Phone: NOIA CWM FMComment on above:Major depressive disorder, recurrent episode, moderate (CMS/HCC) (Primary Dx); Generalized anxiety disorder (CMS/HCC); Primary insomnia; Mild persistent asthma without complication (CMS/HCC); Class 2 obesity due to excess calories without serious comorbidity with body mass index (BMI) of 36.0 to 36.9 in adultStart: 08-04-2024 End: 28-49-1118febmklfoikQEOZ NADERERNot AvailableStart: 05-09-2024 End: 61-29-1863Wkeqispcv department patient visitJimmy Hay MD Work Phone: rsb EMERGENCY DEPTComment on above:Exacerbation of asthma, unspecified asthma severity, unspecified whether persistent (Primary Dx) Start: 04-30-2024 End: 43-46-5880Jvhfhk flowsAlex Ibarra MD Work Phone: NOIC CWM FMStart: 04-30-2024 End: 37-66-4772Srvgpd Alfnoso Ibarra MD Work Phone: NOMN CWM FMStart: 04-30-2024 End: 07-99-6423Ftvlbb outpatient visit 25 Herlinda Ibarra MD Work Phone: NOVI CWM FMComment on above:Major depressive disorder, recurrent episode, moderate (CMS/HCC) (Primary Dx); Generalized anxiety disorder (CMS/HCC); Primary insomnia; Class 2 obesity due to excess calories without serious comorbidity with body mass index (BMI) of 35.0 to 35.9 in adultStart: 04-30-2024 End: 43-78-9173bgzeeuinhsEVJK NADERERNot AvailableStart: 03-25-2024 End: 99-54-9229Eqrxfvsmb Thomas Ibarra MD Work Phone: NOBQ CWM FMStart: 03-12-2024 End: 45-05-6262KrhlutXjwn Naderer MD Work Phone: noms CWM FMComment on above:Obesity (BMI 30-39.9) Start: 02-15-2024 End: 54-30-6892oavdpvhwfqOAEQ NADERERNot AvailableStart: 11-14-2022 End: 51-38-5440mqiuyvkgakUFIgnacio WASHINGTON .Facility:N0Ftxay: 11-01-2022 End: 28-77-6962posyvkieoyRJH KEVIN .Facility:P0Vtpox: 10-25-2022 End: 73-66-7931qhefbvoxxqSGX KEVIN .Facility:Z2Zigzj: 10-23-2022 End: 81-52-3741mlekdiyyccYM DYLON CHAPMAN .Facility:Q1Acrxu: 10-13-2022 ambulatoryDR DAVID PADMINI .Facility:T7Plbau: 10-11-2022 End: 06-34-0207lqyjxrdeleOEXSZLower [facility] Hospital Districttart: 10-11-2022 End: 35-51-5461Fmtjmszjnh hospital visit by Muriel Hay MD Work Phone: stvz LaboratoryStart: 09-19-2022 End: 52-06-7913ybflruhdemZM DAVID PADMINI .Facility:S8Uyilo: 09-17-2022 End: 97-51-5467poqvxvrtgnHCAZFR RODRIGUEZ .Facility:W9Xktnm: 09-11-2022 End: 03-77-2046wgqgbuwdrqVN DOCTOR MISCFacility:O9Gwuvh: 09-06-2022 End: 53-78-1287lrakrvyolbSHPEBLower Umpqua Hospital Districttart: 09-06-2022 End: 97-30-2610Tqxmluyomx hospital visit by Muriel Hay MD Work Phone: stvz LaboratoryStart: 07-31-2022 End: 20-50-8858cyhnxnxjwsRI DAVID PADMINI .Facility:Z9Zcvhh: 07-14-2022 End: 27-21-2758efdyqpwajfLR DAVID PADMINI .Facility:Y6Hrhra: 07-14-2022 End: 50-94-0840xxvmcspmkfJD DAVID PADMINI .Facility:T1Dbpby: 06-14-2022 End: 28-33-5607febxioebzpAY DAVID PADMINI .Facility:I8Vgxhm: 49-93-0883Rdfqrcumw for general adult medical examination without abnormal findingsDR MIKEL [facility]RA [facility] Hospitaltart: 06-12-2022 End: 75-56-9261teugfrrjweQZ MIKEL A NADERERFacility:H6Lbzww: 06-12-2022 End: 70-12-2326Vzvlbzirv for general adult medical examination without abnormal findingsDR MIKEL Head NADERERFacility:H3Wxzqq: 04-04-2022 End: 10-04-6710pdmgvwdadwLL DAVID WASHINGTON .Facility:W0Zpirl: 03-30-2022 End: 83-97-6073lxegdluakmGZ DAVID PADMINI .Facility: Procedures DateProcedureProcedure DetailPerforming ClinicianStart: 98-51-1559ORF PREG QUANT HCGCorey Padmini DO Work Phone: Start: 68-29-0613ADK PREG QUANT HCGCorey Padmini DO Work Phone: Start: 10-25-4309EVZ,APTIMA HPV,AGE GDLNCorey Padmini DO Work Phone: Start: 17-96-4160Hwkzrkmqziy observation [Identifier] in Cervix by Cyto stainMarblake Ibarra MD Work Phone: Start: 85-70-0669RUUPHQC, SEPSISDylon Valadez PA-C Work Phone: [phone]: 16-85-0036NTFHZNL, SEPSISDylon Valadez PA-C Work Phone: Start: 24-78-0761Jbhqqzztts exam chest single view Dylon Valadez PA-C Work Phone: [phone]: 14-98-5560HHENV-19 & INFLUENZA COMBO ([facility])Dylon Valadez PA-C Work Phone: [phone]: 05-09-2024 End: 09-00-4517Tggjnijezmlrq metabolic panelDylon Valadez PA-C Work Phone: [phone]: 05-09-2024 End: 91-91-0005Krj routine ecg w/least 12 lds w/i&rDanirangel Dixon MD Work Phone: [phone]: 05-09-2024 End: 50-00-7131Bumkh test visual color cmprsn Chivo Alcon Allyson HILL Work Phone: Start: 58-46-6120Bayhh count reticulocyte automated Jono Nelson MD Work Phone: Start: 18-86-9562Yknutloagbw observation [Identifier] in Cervix by Cyto stainMarc Thao PACK Work Phone: AppendectomyAlexander Giovani Wisdom Teeth ExtractionAlexand Giovani Plan of Treatment DateCare ActivityDetailAuthorStart: 41-05-8283Zacdlduhl for malignant neoplasm of cervixNOMS HealthcareStart: 47-23-8046Ifhsrcgcc for malignant neoplasm of cervixNOMS HealthcareStart: 10-05-2025 End: 67-51-4471Frfqfmz encounter procedureNOMS BCP OBStart: 05-05-2025 End: 21-87-6912Icnowzt encounter /28/2025 2:45 PM EDT Office Visit [facility] [address] [place] [address] Mikel Ibarra MD [address] [place] [address] [facility] CWM FMStart: 34-16-9209Qucucidmq vaccinationNOMS HealthcareStart: 02-03-2025 End: 69-62-4446Cozgjhy encounter procedureNOMS BCP OBComment on above:Arrived Start: 10-30-2024 End: 59-47-4065Rkuguco encounter mibhacpef37/24/2025 2:45 PM EDT Office Visit [facility] [address] [place] [address] Mikel Ibarra MD [address] [place] [address] ArrivedNOMS CWM FMComment on above:ArrivedStart: 09-29-2024 End: 05-60-0204Zcdsiat encounter mhbuarxnx47/24/2025 10:00 AM EDT Office Visit [facility] [address] [place] [phone] David Washington, DO [address] [place] [address] [place] [address] [facility] BCP OBStart: 09-04-2024 End: 96-90-9119Mhnxftl encounter oycjvrcdn82/27/2025 1:30 PM EST Office Visit [facility] [address] [place] [address] Mikel Ibarra MD [address] [place] [address] [facility] CWM FMStart: 08-04-2024 End: 81-57-1810Ueqzdzr encounter procedureNOMS CWM FMComment on above:Arrived Start: 04-30-2024 End: 07-22-5014Ipzsuej encounter qbbsuglst54/23/2024 8:30 AM EDT Office Visit [facility] [address] [place] [address] Mikel Ibarra MD [address] [place] [address] ArrivedNOMS CWM FMComment on above:ArrivedStart: 03-17-2024 End: 37-99-2221Estpcpe encounter klukztyxj70/09/2024 8:15 AM EDT Office Visit [facility] [address] [place] [address] Mikel Ibarra MD [address] [place] [address] N[facility] CWM FMStart: 66-54-3551KGGAV-19 Vaccine (1 - 2023-24 season)COVID-19 Vaccine ( season)[facility]Start: 03-09-2024 Influenza vaccinationInfluenza Vaccine (#1)[facility] HealthcareStart: 02-07-2024 Influenza vaccinationFlu vaccine (#1)[facility]art: 96-06-3903Piyiqulyk vaccinationFlu vaccine (Season Ended)[facility]: 76-35-9077Negizjbgz for malignant neoplasm of cervixRoper [facility] Hospital For The Chronically IllStart: 10-25-2022 End: 75-31-2138Cjerwqq encounter kcgqjjxuv30/19/2023 Routine Per[facility]ologySanta [facility] Maternal MedStart: 09-27-2022 End: 15-83-7125Wsjxdcq encounter /22/2023 Routine [facility]ologyGood [facility] MedStart: 25-57-4549Bdsxjlcaw vaccinationFlu vaccine (#1)Critical access hospitalart: 29-45-2434Pvekqxggvj A1c uezxviuseemR5X test (Diabetic or Prediabetic)[facility]: 14-33-5930Mdgqeoctg for malignant neoplasm of cervixPap smearAugusta Health: 02-32-4890ZJcS/Tdap/Td vaccine (1 - Tdap)DTaP/Tdap/Td vaccine (1 - Tdap)[facility]: 79-93-9569Qdryvhnhc B vaccine (1 of 3 - 19+ 3-dose series)Hepatitis B vaccine (1 of 3 - 19+ 3-dose series)[facility] FoundationStart: 46-82-2763Fayiufurq C screeningHepatitis C [facility]art: 84-54-5166OJO screeningHIV [facility]: 41-51-8257Ylrsvjirm vaccine (1 of 2 - 13+ 2-dose series)Varicella vaccine (1 of 2 - 13+ 2-dose series)[facility]: 2004 Depression ScreenDepression [facility] 1993 Varicella vaccine (1 of 2 - 2-dose childhood series)Varicella vaccine (1 of 2 - 2-dose childhood series)[facility]: 24-95-0945EEWZM-19 Vaccine (#1)COVID-19 Vaccine (#1)[facility] End: 12-25-7728Mkirn Fetoprotein, MaternalAddvocate Work Phone: comment on above:Once for 1 Occurrences starting 09/06/2022 until 09/06/2022[address] Work Phone: End: 32-29-0999Yhjq, BloodAddvocate Work Phone: comment on above:Once for 1 Occurrences starting 09/06/2022 until 09/06/2022 End: 06-40-1153Jpty, [place] Work Phone: comment on above:Once for 1 Occurrences starting 10/11/2022 until 10/11/2022 End: 65-27-8890Ndyg Review, SmearAddvocate Work Phone: comment on above:Once for 1 Occurrences starting 10/11/2022 until 10/11/2022 End: 88-99-5781Ugjydylpoyb Gene MutationAdd[facility]ocate Work Phone: comharv on above:Once for 1 Occurrences starting 09/06/2022 until 09/06/2022 End: 89-79-4157Ustixnkgl MicroarrayAddvocate Work Phone: comcgjw on above:Once for 1 Occurrences starting 09/06/2022 until 09/06/2022US Thyroid glandGuernsey [facility] Payers DatePayer CategoryPayerPolicy [id number] Health Insurance [id number] 2024[place] [id number] 2024-Present [address] [address] [place] [address] [id number] 1.2.840.872850.1.13.239.2.7.3.114749.315 2023Medicaid [id number] [id number] 1.2.840.321179.1.13.239.2.7.3.790308.315 [id number] 1.2.840.998571.1.13.239.2.7.3.878[id number] 2.840.1.457710.3.57[id number] 2.840.1.171266.3.57[id number] 2.840.1.288212.3.57[id number] 2.840.1.463244.3.57[id number] 2.840.1.986346.3.57[id number] 2.840.1.198875.3.57[id number] 2.840.1.368217.3.57[id number] 2.16840.1.085653.3.57[id number] 2.16840.1.233289.3.57[id number] 2.840.1.600057.3.57[id number] 2.16840.1.838839.3.57[id number] 2.16840.1.204390.3.57[id number] 2.16840.1.440374.3.579.[id number] 2.16840.1.548255.3.579.2.96191-59-9025Enihcsn3589311 2.16840.1.608603.3.579.[id number] 2.840.1.117727.3.579.2.[id number] 2.840.1.464563.3.57[id number] 2.840.1.870275.3.579.2.57263-02-3795Xhmayou33271511 2.840.1.809298.3.57[id number] 2.840.1.392710.3.579.[id number] 2.840.1.845197.3.579.[id number] 2.840.1.303093.3.579.[id number] 2.16840.1.346785.3.579.2.286923-99-5443Sqljjzu3902477 2.16840.1.586651.3.579.2.054113-76-2108Mtbqmkp5667875 2.840.1.493873.3.579.2.813417-36-9198Eeyqbxh2070789 2.16.840.1.086697.3.579.2.538928-69-7876Pbejnnl7678818 2.16.840.1.637728.3.579.2.354729-03-2745Nymulle4805412 2.16.840.1.478739.3.579.2.725854-80-1466[facility] [id number] 1.2.840.963570.1.13.239.2.7.3.648272.85759-22-1042Klsd-yutXqkzucx6326383 2.16.840.1.228702.3.579.2.593 Social History DateTypeDetailFacilityStart: 09-06-2022 End: 43-71-3007Qqqpyir smoking status NHISNever smoked tobaccoLOGIC DEVICES Phone: start: 09-06-2022 End: 70-34-7005Ffyvdyh use and exposureSmokeless tobacco non-userBON Gocella Phone: start: 09-06-2022 End: 50-44-7258Kirbmvk intakeLifetime non-drinker (finding)BON [place] Phone: start: 88-68-5787ZyfwtlxdWOW [place]ocella Phone: start: 56-49-2572Hde Assigned At BirthNot on fileLOGIC DEVICES Phone: start: 11-09-2023 End: 88-75-6560Qztvaui of Social functionNOMS HealthcareStart: 11-09-2023 End: 87-19-2538Tgassu connection and isolation panelNOMS HealthcareDo you belong to any clubs or organizations such as synagogue groups, unions, fraternal or athletic groups, or school groups?NoNOMS HealthcareHow often do you attend meetings of the clubs or organizations you belong to?Patient declinedNOMS HealthcareAre you now , , , , never or living with a partner?MarriedNOMS HealthcareHow often to you have a drink containing alcohol?Monthly or lessNOMS HealthcareHow many standard drinks containing alcohol do you have on a typical day?1 or 2NOMS HealthcareHow often do you have 6 or more drinks on 1 occasion?NeverNOMS HealthcareHow hard is it for you to pay for the very basics like food, housing, medical care, and heating Somewhat hardNOMS HealthcareDo you feel stress - tense, restless, nervous, or anxious, or unable to sleep at night because yourmind is troubled all the time - these days [OSQ]Very muchNOMS Healthcare(I/We) worried whether (my/our) food would run out before (I/we) got money to buy more.Sometimes trueNOMS Healthcare Start: 16-21-7844Hsl [facility] at [facility] HospitalStart: 11-23-2022 Gender identityIdentifies as female gender (finding)[facility] HealthcareStart: 78-21-7692Luinez orientationHeterosexual (finding)[facility] HospitalTobacco smoking [facility] Start: 19-83-1964VnfNhbhet (finding)[facility]althexMale (finding)[facility] Hospitaltart: 76-14-5677Sth Assigned At [facility] HospitalNEGATED: Highlighted rowStart: NINFHistory of tobacco usePassive smokerFORT BELVOIR COMM[facility] Work Phone: Functional Status PncmLsbbhlltkdXmgcdsHmhtnlwi38-80-7802Czudacuhmc StatusShelby Memorial Hospital04-06-2025Functional [facility] Clinical Notes 03-25-2024 to 04-16-2025 Note Date & InpzDpdoTsckubue31-99-9127 Evaluation note* Diagnosis Onset Date Resolution Status Admit Date Mass of left submandibular region acuteOctober 2024 2:29pm [facility] Work Phone: [phone]) 298-748207-29-2025 History of Present illness Narrative* Aleksandra Comer LPN - 02/03/2025 10:20 AM EDT Reason for Appointment: Patient ID: Dilma Santa [...] nursing note reviewed. Exam conducted with a scaling machine operator present. Vitals: Estimated body mass index is [...] of: David Washington DO documented in this encounterSaint John's HospitalKkroiuxwut16-05-6423 History of Present illness Narrative* Mikel Ibarra MD - 10/30/2024 3:23 PM EDTAssociated Problem(s): Pyelonephritis Recent infection and improved. Increase water intake. * Mikel Ibarra MD - 10/30/2024 3:23 PM EDTAssociated Problem(s): Mild persistent asthma without complication (CMS/HCC) Symptoms controlled with pulmicort. Use albuterol PRN. * Mikel Ibarra MD - 10/30/2024 3:23 PM EDTAssociated Problem(s): Major depressive disorder, recurrent episode, moderate (CMS/HCC) Mood doing well without medication and monitor. * Mikel Ibarra MD - 10/30/2024 3:23 PM EDTAssociated Problem(s): Generalized anxiety disorder (CMS/HCC) Mood doing well without medication and monitor. * Mikel Ibarra MD - 10/30/2024 2:45 PM EDT Images from the original note were not included. Subjective Patient ID: Dilma Santa is a 33 y.o. female who presents for Follow-up ([facility] [place] sepsis ). Hospital follow up from [...] and mentally much better. Not as down orsad. Not as stressed or overwhelmed. Overall doing [...] HFA 90 mcg/act inhaler documented in this encounterSaint John's HospitalNzejmsdkpf01-09-8708 NoteMicrobiology PROCEDURE: Blood Culture Charcoal [R1] SOURCE: Blood BODY SITE: Arm L COLLECTED DATE/TIME: 10/14/2024 11:13 EDT RECEIVED DATE/TIME: 10/14/2024 11:46 EDT START DATE/TIME: 10/14/2024 11:46 EDT FREE TEXT SOURCE: Rere LOW MD, MD, Rere FINAL REPORTS Final Report [] Verified Date/Time: 10/21/2024 12:00 EDT No growth at 7 days. Performing Locations R1: This test was performed at: [facility], [address] [place] [address], [address] [place] [address], Bblada Bergen Medical CenterComment on above:Performed By: #### [id number] #### [facility] [address] [place] [address] [id number] NoteMicrobiology PROCEDURE: Blood Culture Charcoal [R1] SOURCE: Blood BODY SITE: Arm R COLLECTED DATE/TIME: 10/14/2024 11:05 EDT RECEIVED DATE/TIME: 10/14/2024 11:47 EDT START DATE/TIME: 10/14/2024 11:47 EDT FREE TEXT SOURCE: LEE ANN PACK, Rere LOW MD, Rere FINAL REPORTS Final Report [] Verified Date/Time: 10/21/2024 12:00 EDT No growth at 7 days. Performing Locations R1: This test was performed at: [facility], [address] [place] [address], [id number] [place] [address], GtqocwMartin Memorial HospitalComment on above:Performed By: #### [id number] #### [facility] [address] [place] [address] [phone] NoteMicrobiology PROCEDURE: Blood Culture Charcoal [R1] SOURCE: Blood [...] This test was performed at: [facility], [address] [place] [address], [id number] , , QiskslMartin Memorial HospitalComment on above:Performed By: #### [id number] #### [facility] [address] [place] [address] [id number] Hospital Discharge instructions Patient Education 10/15/2024 12:07:12 Sepsis, Diagnosis, Adult Sepsis, Diagnosis, Adult Sepsis is a serious bodily reaction to an infection. The infection that triggers sepsis may be froma bacteria, virus, or fungus. Sepsis can result [...] symptoms, medical history, and physical exam. Other testsmay also be done to find out the [...] Follow these instructions at home: Medicines Take jdfl-zjx-axlnzsd and prescription medicines only as told by [...] provider. Document Revised: 05/28/2023 Document Reviewed: 05/28/2023 [employer] Patient Education 2023 InfiKno. Follow Up Care 10/12/2024 08:51:20 With:MIKEL IBARRA Address: [address] [place] [address] Business (1) When:10/30/2024 13:30:00 [facility] 04-09-2025 Evaluation + Plan noteExtracted from:Title: Discharge NoteAuthor:LEE ANN PACK, [facility]'S HospitalfoDate:10/15/24 Stable Discharge To, Anticipated II - Home [...] bedtime), Not taking With When Contact Information MKIEL IBARRA Within 5 to [address] [place] [address] Business (1) Additional Instructions: Call for followup appointment Sepsis, Diagnosis, Adult Extracted from:Title:APSO NoteAuthor:LEE ANN PACK, ZainabfoDate:10/15/24 33-year-old female with hist ory of asthma, [...] Treated with IV Fluid and antibiotics Ordered: [facility] Hospital Care/Day Moderate 35 Minutes 86595 2. Bacteremia (R78.81: Bacteremia) E. coli bacteremia treating with IV ceftriaxone. Staphylococcus coagulase-negative bacteremia likely secondary to skin contaminant -treating with IVvancomycin pending repeat culture results. Ordered: vancomycin, PHARMACY TO DOSE, Injection, IV, As Directed, Routine, Start date 10/14/24 10:35:00 EDT [facility] Hospital Care/Day Moderate 35 Minutes 06542 3. Acute pyelonephritis (N10: Acute pyelonephritis) Acute left E. coli pyelonephritis present on admission. Treating with IV ceftriaxone. Will transition to oral cefdinir at discharge. Ordered: [facility] Hospital Care/Day Moderate 35 Minutes 71397 4. Leukocytosis (D72.829: Elevated white blood cell count, unspecified) Secondary to above. WBC trended down. Ordered: [facility] Hospital Care/Day Moderate 35 Minutes 96709 5. N&V (nausea and vomiting) (R11.2: Nausea with vomiting, unspecified) Secondary to above. Resolved. Ordered: [facility] Hospital Care/Day Moderate 35 Minutes 48177 6. Obese (E66.9: Obesity, unspecified) Recommend therapeutic lifestyle modification changes. Disposition: Home soon pending blood culture result. I discussed the diagnosis and plan of care with the patient at the bedside. Moderate level of MDM based on addressing above issues. This documentation was transcribed using voice recognition software. Several attempts were made to ensure accuracy. However inadvertent computerized national sales errors may be present. Rere Low. Hospitalist. [...] Vancomycin Level Peak Vancomycin Level Trough Extracted from:Title:APSO NoteAuthor:LEE ANN PCAK, ZainabfoDate:10/14/24 33-year-old female with hist ory of asthma, [...] Treating with IV Fluid and antibiotics Ordered: [facility] Hospital Care/Day Moderate 35 Minutes 75201 2. Bacteremia (R78.81: Bacteremia) E. coli bacteremia and gram-positive cocci bacteremia present on admission. Continue on IV ceftriaxone. I added IV vancomycin pending final blood culture result. Repeat blood culture today. Ordered: vancomycin, PHARMACY TO DOSE, Injection, IV, As Directed, Routine, Start date 10/14/24 10:35:00 EDT [facility] Hospital Care/Day Moderate 35 Minutes 25189 3. Acute pyelonephritis (N10: Acute pyelonephritis) Acute left E. Coli pyelonephritis present on admission. Ordered: [facility] Hospital Care/Day Moderate 35 Minutes 91928 4. Leukocytosis (D72.829: Elevated white blood cell count, unspecified) Secondary to above. Treating with antibiotics and IV fluid. Ordered: [facility] Hospital Care/Day Moderate 35 Minutes 01722 5. N&V (nausea and vomiting) (R11.2: Nausea [...] made to ensure accuracy. However inadvertent computerized national sales errors may be present. Rere Low. Hospitalist. [...] Vancomycin Level Peak Vancomycin Level Trough Extracted from:Title:APSO NoteAuthor:LEE ANN PACK, ZainabfoDate:10/13/24 33-year-old female with hist ory of asthma, [...] ordered lactic acid level. Follow cultures. Ordered: [facility] Hospital Care/Day Moderate 35 Minutes 74978 2. Bacteremia (R78.81: Bacteremia) Gram-negative xavier bacteremia secondary to acute pyelonephritis. Treating with IV ceftriaxone. I increased ceftriaxone to 2 g daily. Repeat blood culture in a.m. Ordered: [facility] Hospital Care/Day Moderate 35 Minutes 04186 3. Acute pyelonephritis (N10: Acute pyelonephritis) Acute left pyelonephritis present on admission. Urine culture isolating gram-negative xavier organisms. Ordered: [facility] Hospital Care/Day Moderate 35 Minutes 06724 4. Leukocytosis (D72.829: Elevated white blood cell count, unspecified) Secondary to above. Treating with antibiotics and IV fluid. Ordered: [facility] Hospital Care/Day Moderate 35 Minutes 47955 5. N&V (nausea and vomiting) (R11.2: Nausea [...] made to ensure accuracy. However inadvertent computerized national sales errors may be present. Rere Low. Hospitalist. [...] 98.5 kg, 2.14, m2 Lactic Acid Extracted from:Title:Admission H & PAuthor:Kenny Matute DODate:10/12/24 33-year-old female admitted for acute pyelonephritis involving [...] 2 midnight stays for inpatient status Extracted from:Title:ED NoteAuthor:Bing Aviles PA-CDate:10/12/24 Acute pyelonephritis (N10: A cute pyelonephritis) Leukocytosis (D72.829: Elevated white blood cell count, unspecified) N&V (nausea and vomiting) (R11.2: Nausea with vomiting, unspecified) Orders: ceftriaxone + Sodium Chloride 0.9% intravenous solution 50 mL, 1,000 mg = 1 EA, IV Piggyback, Once,Stop date 10/12/24 11:47:00 EDT, STAT, Start date 10/12/24 11:47:00 EDT, 100 mL/hr, Infuse over 30 minute(s), 10/12/24 11:47:00 EDT ketorolac, 30 mg = 1 mL, Injection, IV Push, Once, Stop date 10/12/24 11:47:00 EDT, STAT, Start date 10/12/24 11:47:00 EDT, 10/12/24 11:47:00 EDT ondansetron, 4 mg = 1 tab(s), Tab-Dis, Oral, Once, Stop date 10/12/24 9:10:00 EDT, STAT, Start date10/12/24 9:10:00 EDT, 10/12/24 9:10:00 EDT promethazine 12.5 mg + Sodium Chloride 0.9% intravenous solution 50 mL, IV Piggyback, Once, Stop date 10/12/24 12:08:00 EDT, STAT, Start date 10/12/24 12:08:00 EDT, 151.5 mL/hr, Infuse over 20 minute(s), 10/12/24 12:08:00 EDT Sodium Chloride 0.9% intravenous solution, 1,000 mL, Soln-IV, IV, Once, Stop date 10/12/24 12:08:00EDT, STAT, Start date 10/12/24 12:08:00 EDT, Infuse over 61, minute(s) Basic Metabolic Panel Blood Culture Charcoal Blood Culture Charcoal CBC w/ Auto Diff CT Abdomen/Pelvis w/o Contrast eGFR Extra Blue Tube Hepatic Function Panel Lactic Acid Lipase Level U Beta Hcg Qual UA with Cult Rflx Urine Culture [facility] 04-09-2025 NoteDischarge Summary Admission and Discharge Information Admit Date/Time:10/12/2024 13:32 Admitting Physician - Kenny Matute DO Admitting Diagnoses: Discharge Order Date Discharge Patient - Ordered -- 10/15/24 12:07:00 EDT, Home after IV ceftriaxone Discharge Diagnoses 1. Sepsis, 10/13/2024 2. Bacteremia, 10/13/2024 3. Acute pyelonephritis, 10/12/2024 4. Leukocytosis, 10/12/2024 5. N&V (nausea and vomiting), 10/12/2024 6. Obese, 10/14/2024 Procedure History Appendectomy, [place] Teeth Extraction. Hospital Course 33-year-old female with history of asthma, depression, obesity presented with complaints of left flank pain associated with high-grade fevers of about 4 days duration. She was subsequently admitted to [facility] with sepsis secondary to E. coli [...] 5 to [address] [place] [address] Business (1) Additional Instructions: Call for followup appointment Patient Education Sepsis, Diagnosis, [facility] HospitalComment on above:Result Comment: Electronically Signed By: LEE ANN PACK, Ivoryanefo\.br\Date and Time Signed: 10/15/24 12:11 [id number] NoteProgress Note - Pharmacy Vancomycin Pharmacy to [...] care. Please contact pharmacy if there are questions.[facility]04-09-2025 NoteProgress Note-Physician Assessment/Plan 33-year-old female with [...] Treated with IV Fluid and antibiotics Ordered: [facility] Hospital Care/Day Moderate 35 Minutes 93891 2. Bacteremia (R78.81: Bacteremia) E. coli bacteremia???treating with IV ceftriaxone. Staphylococcus coagulase-negative bacteremia???likely secondary to skin contaminant -treating with IV vancomycin pending repeat culture results. Ordered: vancomycin, PHARMACY TO DOSE, Injection, IV, As Directed, Routine, Start date 10/14/24 10:35:00 EDT [facility] Hospital Care/Day Moderate 35 Minutes 80830 3. Acute pyelonephritis (N10: Acute pyelonephritis) Acute left E. coli pyelonephritis???present on admission. Treating with IV ceftriaxone. Will transition to oral cefdinir at discharge. Ordered: [facility] Hospital Care/Day Moderate 35 Minutes 69178 4. Leukocytosis (D72.829: Elevated white blood cell count, unspecified) Secondary to above. WBC trended down. Ordered: [facility] Hospital Care/Day Moderate 35 Minutes 17621 5. N&V (nausea and vomiting) (R11.2: Nausea with vomiting, unspecified) Secondary to above. Resolved. Ordered: [facility] Hospital Care/Day Moderate 35 Minutes 32936 6. Obese (E66.9: Obesity, unspecified) Recommend therapeutic lifestyle modification changes. Disposition: Home soon pending blood culture result. I discussed the diagnosis and plan of care with the patient at the bedside. Moderate level of MDM based on addressing above issues. This documentation was transcribed using voice recognition software. Several attempts were made to ensure accuracy. However inadvertent computerized national sales errors may be present. Rere Low. Hospitalist. [...] PRN ketorolac 15 m (more content not included)...[facility] HospitalComment on above:Result Comment: Electronically Signed By: LEE ANN PACK, Rere\.br\Date and Time Signed: 10/15/24 10:07 [id number] NoteProgress Note-Physician Assessment/Plan 33-year-old female with history [...] Treating with IV Fluid and antibiotics Ordered: [facility] Hospital Care/Day Moderate 35 Minutes 87275 2. Bacteremia (R78.81: Bacteremia) E. coli bacteremia and gram-positive cocci bacteremia???present on admission. Continue on IV ceftriaxone. I added IV vancomycin pending final blood culture result. Repeat blood culture today. Ordered: vancomycin, PHARMACY TO DOSE, Injection, IV, As Directed, Routine, Start date 10/14/24 10:35:00 EDT [facility] Hospital Care/Day Moderate 35 Minutes 01313 3. Acute pyelonephritis (N10: Acute pyelonephritis) Acute left E. Coli pyelonephritis???present on admission. Ordered: [facility] Hospital Care/Day Moderate 35 Minutes 96895 4. Leukocytosis (D72.829: Elevated white blood cell count, unspecified) Secondary to above. Treating with antibiotics and IV fluid. Ordered: [facility] Hospital Care/Day Moderate 35 Minutes 67190 5. N&V (nausea and vomiting) (R11.2: Nausea [...] made to ensure accuracy. However inadvertent computerized national sales errors may be present. Rere Low. Hospitalist. [...] II-XII intact, motor strengt (more content not included)...[facility] HospitalComment on above:Result Comment: Electronically Signed By: LEE ANN PACK, Rere\.br\Date and Time Signed: 10/14/24 11:31 [id number] NoteProgress Note - Pharmacy Vancomycin Pharmacy to [...] have any questions, please contact pharmacy at [phone]. Age: 33 Years Allergies: ALLERGIES Weight: Last Documented Weight and Type of Scale Used Last Documented Weight Weight Measured: 103.8 kg (10/13/24 06:00:00) Type of Scale Used Weight Measured Type of Scale: Bed Scale (digital) (10/12/24 17:40:00) Height: Last Documented Height/Length Last Documented Height/Length Height/Length Measured: 165 cm (10/12/24 17:40:00) CrCl: 120 mL/min Labs: No qualifying data available.[facility]04-08-2025 Note Microbiology PROCEDURE: Blood Culture Charcoal [R1] SOURCE: Blood BODY SITE: Arm R COLLECTED DATE/TIME: 10/12/2024 12:21 EDT RECEIVED DATE/TIME: 10/12/2024 12:33 EDT START DATE/TIME: 10/12/2024 12:33 EDT FREE TEXT SOURCE: right nicci Aviles PA-C, Bing Lemos. Stefan HILL, Bing Lemos. FINAL REPORTS Final Report [] Verified Date/Time: 10/14/2024 09:33 EDT Escherichia coli In 2 of 2 blood culture bottles drawn. Isolated from aerobic and anaerobic bottles Preliminary gram stain result of gram negative rods Result called to Dr. Low by [facility] and results read back for confirmation [...] Locations R1: This test was performed at: [facility], [address] [place] [address], [id number] , , GcudatMartin Memorial HospitalComment on above:Performed By: #### [id number] #### [facility] [address] [place] [address] [id number] NoteProgress Note-Physician Assessment/Plan 33-year-old female with history [...] ordered lactic acid level. Follow cultures. Ordered: [facility] Hospital Care/Day Moderate 35 Minutes 67632 2. Bacteremia (R78.81: Bacteremia) Gram-negative xavier bacteremia???secondary to acute pyelonephritis. Treating with IV ceftriaxone. I increased ceftriaxone to 2 g daily. Repeat blood culture in a.m. Ordered: [facility] Hospital Care/Day Moderate 35 Minutes 73253 3. Acute pyelonephritis (N10: Acute pyelonephritis) Acute left pyelonephritis???present on admission. Urine culture isolating gram-negative xavier organisms. Ordered: [facility] Care/Day Moderate 35 Minutes 24275 4. Leukocytosis (D72.829: Elevated white blood cell count, unspecified) Secondary to above. Treating with antibiotics and IV fluid. Ordered: [facility] Hospital Care/Day Moderate 35 Minutes 21818 5. N&V (nausea and vomiting) (R11.2: Nausea [...] made to ensure accuracy. However inadvertent computerized national sales errors may be present. Rere Low. Hospitalist. 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 [employer] No tobacco history Very rare alcohol use [...] Lymph Auto: 11.5 % Low (10/12/24 09:18:00) [place] Auto: 11.7 % (10/12/24 09:18:00) Eos Auto: 0 % (10/12/24 09:18:00) Basophil Auto: 0.5 % (10/12/24 09:18:00) Neutro Absolute: 11.6 E9/L High (10/12/24 09:18:00) Lymph Absolute: 1.8 E9/L (10/12/24 09:18:00) [place] Absolute: 1.8 E9/L High (10/12/24 09:18:00) Eos [...] AST: 17 Int._Unit/L (0 (more content not included)...[facility] Comment on above:Result Comment: Electronically Signed By: Kenny Matute DO\.br\Date and Time Signed: 10/12/24 17:26 [id number] History of Present illness Narrative* Mikel Ibarra [...] (Adipex-P) 37.5 MG tablet documented in this encounterSaint John's HospitalNduvrpgode26-55-0199 Hospital Discharge instructions* Discharge Instructions* Dylon Valadez [...] through Care Everywhere. * Asthma: General Info (Fijian) * Nebulizers: General Info (Fijian) documented in this encounterNemours Foundation Work Phone: 1(923) 210-426010-23-2024 History of Present illness Narrative* Mikel Ibarra [...] minutes at a time. documented in this encounterSaint John's HospitalCenoqstciz12-86-4450 Telephone encounter Note* Telephone Encounter - Mikel Ibarra MD - 03/25/2024 2:20 PM EDT Okay to write letter stating patient needs a second service animal. [place] [id number] Telephone encounter Note* Telephone Encounter - Mikel [...] like the letter e-mailed to her at [email or web address]. [place] [id number] Miscellaneous Notes* Telephone Encounter - Mikel Ibarra [...] the letter e-mailed to her at [email or web address]. documented [facility] HealthcareEvaluation note* Diagnosis Urticaria due to cold [...] whether persistent- Primary documented in this encounter [facility] Work Phone: Evaluation note* Diagnosis Obesity (BMI [...] 36.9 in adult documented in this encounter [facility] HealthcareEvaluation note* Diagnosis Urticaria due to cold [...] this encounter [facility] HealthcareEvaluation noteNo assessment information availableKindred Healthcare Work Phone: Hospital course Narrative No data available for this section [facility] Hospital Discharge instructionsAmbulatory Orders* Referral to ENT Time Frame: 04/24/25, Location: None [facility] Work Phone: Progress note No data available for this section [facility] Reason for referral (narrative)No reason for referral information availableKindred Healthcare Work Phone: Summary Purpose Family History No [...] FoundNo Family History Records Found Advance Directives Advance Directive Response Recorded Date/ Time Advance Directives No April 16, 2025 8:50am Chief Complaint and Reason for Visit Chief Complaint Admit Date April 08, 2025 4: 52pm left side of face mass April 16, 2025 2:29pm Chief Complaint Admit Date left side of face mass April 16, 2025 2:29pm April 21, 2025 3 :45pm Referral Order April 24, 2025 9 :19am Reason for Visit Admit Date Mass of left submandibular region Octobe r 2024 2:29pm Additional Source Comments Care Teams (unrecognized sec tion and content) Team MemberRelationshipSpecialtyStart DateEnd Date Jimmy Hay MD [address] [place] [address] PCP - General01/04/22Te MemberRelationshipSpecialtyStart DateEnd Date Jimmy Hay MD [address] [place] [address] PCP - [facility]01/04/22Te MemberRelationshipSpecialtyStart DateEnd Date Mikel Ibarra MD [address] [place] [phone] PCP - [facility]09/26/23Team MemberRelationshipSpecialtyStart DateEnd Date Mikel Ibarra MD [address] [place] [address] PCP - [facility] Medicine09/26/23Team MemberRelationshipSpecialtyStart DateEnd Date Jimmy Hay MD [address] [place] [address] PCP - [facility]01/04/22Te MemberRelationshipSpecialtyStart DateEnd Date Mikel Ibarra MD [address] [place] [address] PCP - GeneralFamily Medicine09/26/23Team MemberRelationshipSpecialtyStart DateEnd Date Mikel Ibarra MD [address] [place] [address] PCP - GeneralFamily Medicine09/26/23Team MemberRelationshipSpecialtyStart DateEnd Date Mikel Ibarra MD [address] [place] [address] PCP - GeneralFamily Medicine09/26/23Team MemberRelationshipSpecialtyStart DateEnd Date Mikel Ibarra MD [address] [place] [address] PCP - GeneralFamily Medicine09/26/23Team MemberRelationshipSpecialtyStart DateEnd Date Mikel Ibarra MD [address] [place] [address] PCP - GeneralFamily Medicine09/26/23Team MemberRelationshipSpecialtyStart DateEnd Date Mikel Ibarra MD [address] [place] [address] PCP - GeneralFamily Medicine09/26/23Team MemberRelationshipSpecialtyStart DateEnd Date Mikel Ibarra MD [address] [place] [address] PCP - GeneralFamily Medicine09/26/23Team MemberRelationshipSpecialtyStart DateEnd Date Mikel Ibarra MD [address] [place] [address] PCP - [facility]09/26/23Team MemberRelationshipSpecialtyStart DateEnd Date Mikel Ibarra MD [address] [place] [address] PCP - [facility]09/26/23 Team Status: Active Member Role Status Dates Mikel Ibarra MD Primary Care Provider Active Team Status: Active Member Role Status Dates Cesar Mallory MD Attending Provider Active Start: April 08, 2025 Team Status: Inactive Member Role Status Dates Mikel Ibarra MD Primary Care Provider Active S tart: April 16, 2025 End: April 16, 2025[facility] Tianna Ibarra ProviderActiveStart: April 16, 2025 End: April 16, 2025 Team Status: Active Member Role/Relationship Status Dates Mikel Ibarra MD Primary Care Provider Active Team Status: Inactive Member Role/Relationship Status Dates Mikel Ibarra MD Primary Care Provider Active S tart: April 16, 2025 End: April 16, 2025Tianna Hilliard ProviderActiveStart: April 16, 2025 End: April 16, 2025 Team Status: Active Member Role/Relationship Status Dates Cesar Mallory MD Attending Provider Active Start: April 21, 2025 Team Status: Active Member Role/Relationship Status Dates Mikel Ibarra MD Primary Care Provider Active S tart: April 24, 2025 Tianna Hilliard ProviderActiveStart: April 24, 2025 INFORMATION SOURCE (unrecogn ized section and content) DATE CREATED AUTHOR 11/17/2022 [facility] DATE CREATED AUTHOR AUTHOR'S ORGANIZ ATION 01/24/2023 [facility] DATE CREATED AUTHOR AUTHOR'S ORGANIZ ATION 10/13/2024 [facility] DATE CREATED AUTHOR AUTHOR'S ORGANIZ ATION 10/14/2024 [facility] DATE CREATED AUTHOR AUTHOR'S ORGANIZ ATION 10/15/2024 [facility] DATE CREATED AUTHOR AUTHOR'S ORGANIZ ATION 10/17/2024 [facility] DATE CREATED AUTHOR AUTHOR'S ORGANIZ ATION 10/18/2024 [facility] DATE CREATED AUTHOR AUTHOR'S ORGANIZ ATION 10/23/2024 [facility] CREATED AUTHOR AUTHOR'S ORGANIZ ATION 02/04/2025 [facility] DATE CREATED AUTHOR AUTHOR'S ORGANIZ ATION 04/23/2025 [facility] Reason for Visit (unrecogniz ed section and content) ReasonCommentsFollow-upReasonCommentsShortness of BreathC/o shortness of breath that started this morning. Tried her breathing treatments at home with no re lief. Pt tachypneic and audible wheezing in triage. States it feels like an elephants sitting on my chest ReasonCommentsMed RefillReasonCommentsFollow-up3 m ReasonCommentsFollow-up[facility]/up sepsisReasonCommentsInfertilityFollow-up Ordered Prescriptions (unrec ognized section and content) PrescriptionSigDispensedRefillsStart DateEnd Date predniSONE (DELTASONE) 20 MG tablet Take 1 tablet by mouth 2 times daily for 5 days 10 tablet Scheduled Active and Recently Administ ered Medications (unrecognized section and content) Medication Order albuterol (PROVENTIL) (2.5 MG/3ML) 0.083% nebulizer solution 2.5 mg (COMPLETED) 2.5 mg, Nebulization, ONCE, 1 dose, On Sun05/09/24 at 2218, Initiate RT Bronchodilator Protocol: No * 2225 (Given - Provider: Brigette Bates RN) guaiFENesin (ROBITUSSIN) 100 MG/5ML liquid 400 mg (COMPLETED) 400 mg, Oral, ONCE, 1 dose, On Sun05/09/24 at 2226 * 2253 (Given - Provider: Brigette Bates RN) ipratropium 0.5 mg-albuterol 2.5 mg (DUONEB) nebulizer solution 1 Dose (COMPLETED) 1 Dose, Inhalation, ONCE, 1 dose, On Sun05/09/24 at 2128, Initiate RT Bronchodilator Protocol: No, STAT * 2135 (Given - Provider: Brigette Bates RN) lactated ringers bolus 1,000 mL (COMPLETED) 1,000 mL, IntraVENous, at 495.9 mL/hr, Administer over 121 Minutes, ONCE, On Sun05/09/24 at 2249, For 1 dose, STAT * 2257 (New Bag - Provider: Brigette Bates RN) * 0039 (Stopped - Provider: Brigette Bates RN) magnesium sulfate 2000 mg in water 50 mL IVPB (COMPLETED) 2,000 mg, IntraVENous, at 50 mL/hr, Administer over 1 Hours, ONCE, On Sun05/09/24 at 8, For 1 dose, Recommended infusion rate not to exceed 1,000 mg (milligrams) per hour. * 2138 (New Bag - Provider: Brigette Bates RN) * 2238 (Stopped - Provider: Brigette Bates RN) methylPREDNISolone sodium (PF) (SOLU-MEDROL PF) injection 125 mg (COMPLETED) 125 mg, IntraVENous, ONCE, On Sun05/09/24 at 2128, For 1 dose * 2136 (Given - Provider: Brigette Bates RN) ondansetron (ZOFRAN) injection 4 mg (COMPLETED) 4 mg, IntraVENous, ONCE, 1 dose, On Sun05/09/24 at 2340, STAT * 2349 (Given - Provider: Brigette Bates RN) [...] BE BASED ON THE PRIMARY CLINICAL RECORDS. [facility]. provides no warranty or guarantee of the accuracy or completeness of information in this document.
--- NOTE | 2025-05-01 16:23 | CT_ITS ---
The [address] [address] Patient Name: DILMA DONAHUE MRN: [id number] date: 1990 Sex: F Assigned Patient Location: CT Current Patient Location: CT Accession/Order Number: [id number] Exam Date: 05/01/2025 16:25 Report Date: 05/01/2025 21:07 At the request of: GRICELDA IBARRA MD Procedure: CT soft tissue neck w con CT soft tissue neck w con 05/01/2025 4:48 PM SIGNS AND SYMPTOMS: ^Mass of left submandibular region (R22.0) TECHNIQUE: Multidetector CT axial slices of the soft tissues of the neck were obtained with IV contrast. Sagittal and coronal reformats were reconstructed. CT was performed with one or more of the following dose reduction techniques: Automated exposure control, adjustment of the mA and/or kV according to patient size, or use of iterative reconstruction technique. COMPARISON: Ultrasound 04/24/2025 FINDINGS: Within the left parotid gland, there is confirmation of a 2.7 x 2.6 x 4.7 cm mass The nasopharynx, oropharynx, hypopharynx, glottic, and subglottic regions are unremarkable. Nodularity along the isthmus of the thyroid gland 1.8 x 0.8 cm in size. Otherwise, the right parotid gland, submandibular, and the thyroid gland are otherwise unremarkable. The visualized lung parenchyma shows no acute pathology. No acute bony abnormalities are appreciated. 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 Recommend ENT referral. Impression dictated by: Houston Ragsdale M.D. 05/01/2025 9:07 PM Dictation Location: [place] [address] Electronically authenticated by: [id number] Y Date: 05/01/2025 21:07
== END 2025-05-01 16:14 | disposition home or self-care (01) ==
PROVIDERS: PCP Family Medicine; Visit Provider Family Medicine
DX: R22.0 Localized swelling, mass and lump, head (principal)
CPT/HCPCS: 70491; Q9967